=== PATIENT | female | born 1950 | race Two or more races ===

== ENCOUNTER 2024-05-04 14:32 | Inpatient (IN) | payer MEDICARE, SELFPAY ==
--- NOTE | ~2024-05-04 | CT_ITS ---
EXAMINATION: CT HEAD WITHOUT CONTRAST CLINICAL INFORMATION: Cognitive decline. COMPARISON: There are no prior studies available for comparison. TECHNIQUE: Multidetector CT imaging of the head was obtained without the use of intravenous contrast. Coronal and sagittal reformatted images were generated at the technologist workstation. This CT examination was performed using dose optimization techniques as appropriate, variously including the following: *Automated exposure control *Adjustment of mA and/or kV according to patient size (this includes techniques or standardized protocols for targeted exams where dose is matched to indication/reason for exam; i.e. extremities or head) *Use of iterative reconstruction technique DLP: 764 mGy-cm. FINDINGS: There is no evidence of acute intracranial hemorrhage or territorial infarction. No abnormal mass-effect or midline shift is seen. [place] to white matter differentiation is well preserved. No extra-axial fluid collections are identified. There is mild commensurate prominence of the ventricles and sulci. Brain parenchymal attenuation is unremarkable. There are no acute osseous findings. There is hyperostosis frontalis interna. The soft tissues and orbits are unremarkable. The mastoid air cells and the paranasal sinuses are well-aerated CT/CT head/brain wo IV con IMPRESSION: There are no acute bleeds or territorial infarcts. No masses are demonstrated. Brain parenchymal attenuation is unremarkable.
[2024-05-04 14:57] VITALS: BP 127/65; PULSE 87; RESP 18; TEMP 36.6; O2SAT 100; BMI 25.0
[2024-05-04 15:08] VITALS: BP 127/65; PULSE 87; RESP 18; TEMP 36.6; O2SAT 100
[2024-05-04 15:09] LABS: MANUAL DIFF FLAG NO
[2024-05-04 15:13] LABS: Basophils Percent Auto 0.6 % (0-2); Eosinophils Absolute Auto 0.2 X10*3/uL (0.0-0.4); Eosinophils Percent Auto 3.5 % (0-4); Hematocrit 40.3 % (37.0-47.0); Hemoglobin 13.4 g/dl (12.0-16.0); Imm Gran Abs Auto 0.01 X10*3/uL (0.00-0.03); Imm Gran Pct Auto 0.2 % (0.0-0.4); Lymphocytes Absolute Auto 1.6 X10*3/uL (1.2-4.9); Lymphocytes Percent Auto 32.9 % (20-40); Mean Corpuscular HGB Conc 33.3 g/dl (31.0-35.0); Mean Corpuscular Hemoglobin 29.8 pg (27.0-33.0); Mean Corpuscular Volume 89.8 fL (80.0-98.0); Mean Platelet Volume 9.1 fL (9.4-12.3); Monocytes Absolute Auto 0.5 X10*3/uL (0.1-1.2); Monocytes Percent Auto 11.1 % (2-11); Neutrophils Absolute Auto 2.5 x10*3/uL (2.0-8.3); Neutrophils Percent Auto 51.7 % (45-73); Platelet Count 215 X10*3/uL (160-400); Red Blood Count 4.49 X10*6/uL (4.20-5.50); Red Cell Distribution Width 13.4 % (11.0-16.0); White Blood Count 4.9 X10*3/uL (4.8-10.8)
--- NOTE | 2024-05-04 15:20 | PC.NURSE ---
PT was brought in by her son due to increasing manic behaviors at home. The son reports that she was Hospitalized at [facility] twice in the last couple of months. The son also endorses that the patient might have dementia but that there is no diagnosis at this time. The son states that she has not been at her base line since before going to [facility].
[2024-05-04 15:28] LABS: Acetaminophen LAB < 3 mcg/mL (<30); Alanine Aminotransferase 13 U/L (0-31); Albumin Level 4.2 g/dL (3.5-5.0); Alkaline Phosphatase 122 U/L (39-117); Anion Gap 12 (12-20); Aspartate Amino Transferase 18 U/L (5-31); Bilirubin Total 0.6 mg/dL (0.0-1.0); Blood Urea Nitrogen 19 mg/dL (9-16); Calcium 9.4 mg/dL (8.4-10.2); Carbon Dioxide 31 mmol/L (22-29); Chloride 102 mmol/L (96-108); Creatinine Clr Calc Pharmacy 37.5; Estimated Glomerular Filt Rate 50; Ethanol < 10 mg/dL; Glucose Random 104 mg/dL (60-115); Magnesium 2.3 mg/dL (1.6-2.6); Salicylate < 5.0 mg/dL (15-30); Sodium 141 mmol/L (135-145); Total Protein 7.5 g/dL (6.5-8.0)
--- NOTE | 2024-05-04 15:41 | MHC.CARE ---
Pt's son arrived with her and provided collateral information. Thad, son reported he is the HCP along with Pt's daughter Love. Thad reported Pt has been hospitalized for psychiatric concerns her entire life. He reported Pt has a diagnosis of Bipolar D/O and he is concerned of a dementia DX at this point in time. Pt was admitted to the Chasity unit at [facility] twice in the past 2 months; both times for about 2 weeks. Thad reported that she decompensated relatively quickly after each admission. Pt has been increasingly confused and exhibiting symptoms of selena for the past week. Pt has reportedly not been sleeping much the past week. Thad reported that there has been reports from other hospitals of Pt exhibiting hypersexual behaviors as well. Pt was living independently and high functioning until 3 months ago when Thad believes her daughter being diagnosed with breast cancer was increasingly traumatic for Pt. Pt currently resides with daughter, Love at this time.
[2024-05-04 17:16] LABS: TSH reflex Free T4 1.25 uIU/mL (0.32-4.0)
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
--- NOTE | 2024-05-04 19:13 | PC.NURSE ---
patient appears recumbent in room, naked under sheet in room about every fifteen minutes laughing loudly in her room, awaiting client to provide urine sample with which we can continue assessment for tx here. appears in no acute distress.
--- NOTE | 2024-05-04 21:17 | PC.NURSE ---
approached client about medications she declined
--- NOTE | 2024-05-05 02:10 | PC.NURSE ---
patient came out of room naked, redirected to get clothes on, seeming to want to interact with persons and not seeming tired. redirect she may sit in common area if quieter.
[2024-05-05] MEDS: LORazepam 2 MG/ML VIAL 1 MG IM (02:27)
[2024-05-05] MEDS: Haloperidol Lactate 5 MG/ML VIAL IM (02:27)
[2024-05-05] MEDS: diphenhydrAMINE HCL 50 MG/ML VIAL IM (02:27)
--- NOTE | 2024-05-05 07:28 | PC.NURSE ---
Assumed care of patient at 0645. No signs of distress, breathing is even and unlabored. Patient is observed resting quietly in their bed.
[2024-05-05] MEDS: lisinopriL 2.5 MG TABLET PO (10:06)
[2024-05-05] MEDS: QUEtiapine Fumarate 100 MG TABLET PO (10:07)
--- NOTE | 2024-05-05 12:36 | PC.NURSE ---
Healthcare proxy and durable power of claims attorney paperwork is in the patients chart.
[2024-05-05 13:30] LABS: Valproate < 12.5 mcg/mL (50.0-100.0)
[2024-05-05 13:33] VITALS: BP 106/76; PULSE 78; RESP 18; TEMP 36.6; O2SAT 95
[2024-05-05 13:37] LABS: Appearance Urine Clear; Color Urine Yellow; Glucose Urine UA Negative (Negative); Leukocyte Esterase Urine Moderate (2+) (Negative); Nitrite Urine Negative (Negative); UMIC TRIGGER UACC YES; Urine Blood Negative (Negative); Urine Ketones Negative (Negative); Urine Protein Negative (Neg-Trace)
[2024-05-05 13:46] LABS: Amphetamine Screen Urine Not Detected (Not Detect); Bacteria Urine None Seen (None Seen); Barbiturates, Urine Not Detected (Not Detect); Benzodiazepines Screen Urine Not Detected (Not Detect); Buprenorphine Scr Not Detected (Not Detect); Cannabinoid Screen Urine Not Detected (Not Detect); Cocaine Screen Urine Not Detected (Not Detect); Fentanyl, urine Not Detected (Not Detect); Hyaline Casts Urine 0-2 /LPF (0-2); Methadone Screen, Urine Not Detected (Not Detect); Opiate Screen Urine Not Detected (Not Detect); Oxycodone Screen Urine Not Detected (Not Detect); Phencyclidine Screen Urine Not Detected (Not Detect); RBC Urine 0-2 /HPF (0-2); Squamous Epithelial Cell Urine 0-2 /HPF (0-2); WBC Urine 0-5 /HPF (0-5)
[2024-05-05 16:26] VITALS: BP 105/58; PULSE 71; RESP 16; TEMP 36.6; O2SAT 97
--- NOTE | 2024-05-05 19:36 | PC.NURSE ---
patient appears to remain at rest presently respirations are even and unlabored patient appears in no distress
[2024-05-05] MEDS: QUEtiapine Fumarate 300 MG TABLET PO (20:54)
[2024-05-05] MEDS: Benztropine Mesylate 0.5 MG TABLET PO (20:54)
[2024-05-05] MEDS: lamoTRIgine 100 MG TABLET PO (20:54)
[2024-05-05] MEDS: Divalproex Sodium ER 250 MG TAB.ER.24H PO (20:54)
--- NOTE | 2024-05-05 22:54 | PC.NURSE ---
client reports sensation of restless legs, but unclear at this time.
[2024-05-06 06:27] VITALS: RESP 16
--- NOTE | 2024-05-06 07:10 | PC.NURSE ---
Assumed care of patient at 0645. No signs of distress, breathing is even and unlabored. Patient is observed resting quietly in their bed.
[2024-05-06] MEDS: QUEtiapine Fumarate 100 MG TABLET PO (10:05)
[2024-05-06 10:12] VITALS: BP 90/62; PULSE 100; RESP 20; TEMP 36.4; O2SAT 97
[2024-05-06 14:10] VITALS: BP 112/56; PULSE 80; RESP 16; TEMP 36.5; O2SAT 94
[2024-05-06] MEDS: lamoTRIgine 100 MG TABLET PO (20:49)
[2024-05-06] MEDS: Divalproex Sodium ER 250 MG TAB.ER.24H PO (20:49)
[2024-05-06] MEDS: QUEtiapine Fumarate 300 MG TABLET PO (20:49)
[2024-05-06] MEDS: Benztropine Mesylate 0.5 MG TABLET PO (20:49)
[2024-05-07 06:08] VITALS: BP 134/88; PULSE 105; TEMP 36.4; O2SAT 97
--- NOTE | 2024-05-07 07:50 | ECG_ITS ---
Test Reason : medication side effect, qt duration Blood Pressure : / mmHG Vent. Rate : 075 BPM Atrial Rate : 075 BPM P-R Int : 160 ms QRS Dur : 074 ms QT Int : 372 ms P-R-T Axes : 073 043 064 degrees QTc Int : 415 ms Normal sinus rhythm Normal ECG No previous ECGs available Referred By: Bernardo De Paz Electronically Signed By:Hansel Luna
[2024-05-07 09:23] VITALS: BP 105/55; PULSE 83; RESP 20; TEMP 36.7; O2SAT 93
[2024-05-07 09:27] VITALS: BP 105/55
[2024-05-07] MEDS: QUEtiapine Fumarate 100 MG TABLET PO (09:27)
[2024-05-07] MEDS: lisinopriL 2.5 MG TABLET PO (09:27)
--- NOTE | 2024-05-07 09:49 | PC.NURSE ---
Angela Arechiga MD reviewed pt.'s EKG. EKG put in pt.'s chart.
--- NOTE | 2024-05-07 12:15 | PC.NURSE ---
Angela Arechiga MD ordered dose of Colace for pt. because pt. complained of not going number 2 in two weeks. Pt. now refusing medication, stating that she might want it later.
--- NOTE | 2024-05-07 12:45 | MHC.CARE ---
RAD Team completed a Statewide [facility] Bed search. [facility], [facility], [facility], [facility] and [facility] were all full. / Referral was? faxed to [facility]. [facility] declined due to hyper sexualized behaviors.?Bed search will resume tomorrow if deemed necessary.
[2024-05-07] MEDS: QUEtiapine Fumarate 50 MG TABLET PO (19:02)
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
[2024-05-07 20:24] VITALS: RESP 14
[2024-05-07 22:02] VITALS: BP 120/64; PULSE 69; RESP 18; TEMP 36.5; O2SAT 96
[2024-05-07] MEDS: lamoTRIgine 100 MG TABLET PO (22:12)
[2024-05-07] MEDS: Divalproex Sodium ER 250 MG TAB.ER.24H PO (22:12)
[2024-05-07] MEDS: Benztropine Mesylate 0.5 MG TABLET PO (22:12)
[2024-05-07] MEDS: QUEtiapine Fumarate 300 MG TABLET PO (22:12)
[2024-05-07] MEDS: Docusate Sodium 100 MG CAPSULE PO (22:12)
--- NOTE | 2024-05-07 22:24 | PC.NURSE ---
Pt medicated per dec. Plan of care ongoing.
--- NOTE | 2024-05-07 23:11 | PC.NURSE ---
Pt ambulates with a steady gait to the restroom. Pt requested and given wash cloth. Plan of care ongoing.
--- NOTE | 2024-05-08 02:50 | PC.NURSE ---
Pt out pacing the unit. Plan of care ongoing.
[2024-05-08 07:38] VITALS: RESP 14
--- NOTE | 2024-05-08 07:58 | PC.NURSE ---
Assumed care of patient at 0645, patient appears to be sleeping, no apparent distress noted. Per night RN, patient has hypersexual behaviors, will speak in tangential sentences sometimes in Canadian. Continue plan of care for inpatient bedsearch
[2024-05-08] MEDS: QUEtiapine Fumarate 100 MG TABLET PO (08:20)
[2024-05-08] MEDS: Docusate Sodium 100 MG CAPSULE PO ×2 (08:20→20:39)
[2024-05-08] MEDS: lisinopriL 2.5 MG TABLET PO (08:20)
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
--- NOTE | 2024-05-08 16:19 | PC.ADMIT ---
Addendum entered by Nicolle De La Fuente RN 05/08/24 16:30: Pt. speaks both Faroese and Iranian. Original Note: Pt. arrived on unit at 14:39 via WC accompanied by this RN and security. Skin and contraband checks performed with no significant findings. Pt. pleasant and cooperative with admission process. Signed CV and ROIs. Oriented to unit and policies. She is A & O X 3-4--understands she is here because of her selena, I do things fast and cook in the middle of the night. Per crisis eval she had been displaying hypersexual behaviors in front of her son in law and grandchildren. She denies depression, anxiety, and AH. Pt. with elevated mood and becomes hyperverbal and expansive, quickly changing subject to her religiously themed visions. Pt. ambulates independently without assistive devices. She takes her meds whole. She wears glasses and dentures at baseline, but they are not with her. Message left for daughter Love to call unit for update.
[2024-05-08] MEDS: QUEtiapine Fumarate 50 MG TABLET PO ×2 (17:19→22:36)
[2024-05-08 20:00] VITALS: BP 101/57; PULSE 89; RESP 18; TEMP 37.1; O2SAT 96
[2024-05-08] MEDS: Benztropine Mesylate 0.5 MG TABLET PO (20:39)
[2024-05-08] MEDS: Divalproex Sodium ER 250 MG TAB.ER.24H PO (20:39)
[2024-05-08] MEDS: lamoTRIgine 100 MG TABLET PO (20:39)
[2024-05-08] MEDS: QUEtiapine Fumarate 300 MG TABLET PO (20:39)
[2024-05-08] MEDS: traZODone HCL 50 MG TABLET PO (22:36)
[2024-05-08] MEDS: hydrOXYzine HCL 25 MG TABLET PO (22:36)
[2024-05-09 08:00] VITALS: BP 127/57; PULSE 88; RESP 18; TEMP 36.4; O2SAT 99
[2024-05-09 08:51] LABS: Alanine Aminotransferase 12 U/L (0-31); Albumin Level 4.1 g/dL (3.5-5.0); Alkaline Phosphatase 100 U/L (39-117); Anion Gap 11 (12-20); Aspartate Amino Transferase 18 U/L (5-31); Bilirubin Total 0.9 mg/dL (0.0-1.0); Blood Urea Nitrogen 27 mg/dL (9-16); Calcium 9.3 mg/dL (8.4-10.2); Carbon Dioxide 30 mmol/L (22-29); Chloride 101 mmol/L (96-108); Cholesterol 157 mg/dL (<200); Creatinine Clr Calc Pharmacy 32.6; Estimated Glomerular Filt Rate 43; Glucose Fasting 112 mg/dL (60-99); HDL Cholesterol 45 mg/dL (>40); LDL Cholesterol Calculated 100 mg/dL (<100); Potassium 3.8 mmol/L (3.3-5.1); Sodium 138 mmol/L (135-145); Total Protein 7.3 g/dL (6.5-8.0); Triglycerides 61 mg/dL (<150)
[2024-05-09 08:57] VITALS: BP 127/57
[2024-05-09] MEDS: QUEtiapine Fumarate 100 MG TABLET PO (08:57)
[2024-05-09] MEDS: lisinopriL 2.5 MG TABLET PO (08:57)
[2024-05-09] MEDS: Docusate Sodium 100 MG CAPSULE PO ×2 (08:58→19:54)
--- NOTE | 2024-05-09 13:02 | P.PNPSI_ITS ---
Subjective Subjective Date of Service: 05/09/24 Reason For Visit: Psychosis Subjective Notes: Conditional Voluntary Healthcare Proxy: Yes Interim History: The nursing staff reported the patient had been manic at times but very easily redirectable. She has been pleasant and cooperative. Today on interview the patient denies new symptoms, I called her daughter and decided to cross taper her completely to Depakote and Seroquel since historically healthcare very well. Mental Status Exam Mental Status Exam Patient Appearance: Appropriate Patient Orientation: Person and Situation Level of Consciousness: Awake Patient Behavior: Guarded and Passive Mood Description: Withdrawn Affect Description: Calm Patient Cognition Impaired: Yes Ability to Follow Directions: Good Speech Pattern: Clear Hallucinations: None Delusions: Ideas of Reference Thought Process: Distracted and Slowed Thinking Thought Content: positive for [place] and positive for Poverty of Content Judgement: Fair Diagnostics Vital Signs (24Hr): Vital Signs - 24 hr 05/08/24 20:00 05/09/24 08:00 05/09/24 08:57 Temperature 98.8 F 97.5 F Pulse Rate 89 88 Respiratory Rate 18 18 Blood Pressure 101/57 L 127/57 L 127/57 L Pulse Oximetry 96 99 Oxygen Delivery Method Room Air Room Air BMI result Body Mass Index 25.0 Labs 05/04/24 15:03 05/09/24 08:10 Labs: Laboratory Results - last 48 hr 05/09/24 08:10 Hold Purple Top SEE NOTE Sodium 138 Potassium 3.8 Chloride 101 Carbon Dioxide 30 H Anion Gap 11 L BUN 27 H Creatinine 1.24 Estim Creat Clear Calc 32.6 Estimated GFR 43 Fasting Glucose 112 H Calcium 9.3 Total Bilirubin 0.9 AST 18 ALT 12 Alkaline Phosphatase 100 Total Protein 7.3 Albumin 4.1 Triglycerides 61 Cholesterol 157 LDL Cholesterol, Calc 100 H HDL Cholesterol 45 Medications Medications Current Medications Acetaminophen (Acetaminophen 325 Mg Tablet) 650 mg PO Q6H PRN PRN Reason: Headache/Pain Mild Scale (1-3) Al Hydroxide/Mg Hydroxide (Magnesium Hydrox/Alum Hydrox 30 Ml Oral.Susp) 30 ml PO Q6H PRN PRN Reason: Heartburn/Nausea Benztropine Mesylate (Benztropine Mesylate 0.5 Mg Tablet) 0.5 mg PO BEDTIME [facility] Last Admin: 05/08/24 20:39 Dose: 0.5 mg Divalproex Sodium (Divalproex Sodium Er 250 Mg Tab.Er.24h) 250 mg PO BEDTIME [facility] Last Admin: 05/08/24 20:39 Dose: 250 mg Docusate Sodium (Docusate Sodium 100 Mg Capsule) 100 mg PO BID [facility] Last Admin: 05/09/24 08:58 Dose: 100 mg Hydroxyzine HCl (Hydroxyzine Hcl 25 Mg Tablet) 25 mg PO Q6H PRN PRN Reason: Anxiety Last Admin: 05/08/24 22:36 Dose: 25 mg Lamotrigine (Lamotrigine 100 Mg Tablet) 100 mg PO BEDTIME [facility] Last Admin: 05/08/24 20:39 Dose: 100 mg Lisinopril (Lisinopril 2.5 Mg Tablet) 2.5 mg PO DAILY [facility]; Protocol Last Admin: 05/09/24 08:57 Dose: 2.5 mg Magnesium Hydroxide (Milk Of Magnesia 30 Ml Oral.Susp) 30 ml PO DAILY PRN PRN Reason: Constipation Quetiapine Fumarate (Quetiapine Fumarate 50 Mg Tablet) 50 mg PO BID PRN PRN Reason: Agitation Last Admin: 05/08/24 22:36 Dose: 50 mg Quetiapine Fumarate (Quetiapine Fumarate 100 Mg Tablet) 100 mg PO DAILY [facility] Last Admin: 05/09/24 08:57 Dose: 100 mg Quetiapine Fumarate (Quetiapine Fumarate 300 Mg Tablet) 300 mg PO BEDTIME [facility] Last Admin: 05/08/24 20:39 Dose: 300 mg Trazodone HCl (Trazodone Hcl 50 Mg Tablet) 50 mg PO BEDTIME MRX1 PRN PRN Reason: Insomnia Last Admin: 05/08/24 22:36 Dose: 50 mg Allergies Allergies Allergy/AdvReac Type Severity Reaction Status Date / Time No Known Allergies Allergy Verified 05/04/24 15:04 Assessment & Plan Assessment & Plan (1) Dementia: Status: Acute Code(s): F03.90 - Unspecified dementia, unspecified severity, without behavioral disturbance, psychotic disturbance, mood disturbance, and anxiety (2) Bipolar 1 disorder: Status: Acute Code(s): F31.9 - Bipolar disorder, unspecified Plan The patient is an elderly Frisian female, bilingual, with a past history of bipolar disorder and a past history of catatonia with several admissions into the hospital, recently admitted twice in the last 60 days for a presentation of selena. Currently now she has manic symptoms. Plan 1. Continue Seroquel 100 p.o. q.a.m. and 300 mg p.o. q.h.s., also with PRNs Seroquel 50 as needed. 2. Increase Depakote up to 250 mg p.o. b.i.d.. 3. Lowered to Lamictal up to 50 mg p.o. daily. 4. Continue with medical workout. 5. 15 minute checks. Patient educated on: diagnosis Reason for continued inpatient stay Substantial Risk for: inability to function, rapid decompensation and med/psych decompensation Time Spent With Patient Time: Total time managing care of this patient today _20___ minutes.
[2024-05-09] MEDS: QUEtiapine Fumarate 300 MG TABLET PO (19:53)
[2024-05-09] MEDS: Benztropine Mesylate 0.5 MG TABLET PO (19:54)
[2024-05-09] MEDS: Divalproex Sodium ER 250 MG TAB.ER.24H PO (19:54)
[2024-05-09] MEDS: lamoTRIgine 25 MG TABLET 50 MG PO (19:54)
[2024-05-09 20:00] VITALS: BP 129/65; PULSE 77; RESP 18; TEMP 36.4; O2SAT 98
[2024-05-10] MEDS: QUEtiapine Fumarate 50 MG TABLET PO (05:36)
[2024-05-10] MEDS: hydrOXYzine HCL 25 MG TABLET PO ×2 (05:36→17:39)
[2024-05-10 07:00] VITALS: BMI 24.5
[2024-05-10 08:00] VITALS: BP 119/72; PULSE 64; RESP 18; TEMP 36.1; O2SAT 96
[2024-05-10 08:53] VITALS: BP 119/72
[2024-05-10] MEDS: QUEtiapine Fumarate 100 MG TABLET PO (08:53)
[2024-05-10] MEDS: Divalproex Sodium ER 250 MG TAB.ER.24H PO ×3 (08:53→21:13)
[2024-05-10] MEDS: Docusate Sodium 100 MG CAPSULE PO ×2 (08:53→21:12)
[2024-05-10] MEDS: lisinopriL 2.5 MG TABLET PO (08:53)
--- NOTE | 2024-05-10 13:07 | HO.PSYCHPN ---
Subjective Subjective Date of Service: 05/10/24 Reason For Visit: Psychosis Subjective Notes: Conditional Voluntary Healthcare Proxy: Yes Interim History: The nursing staff reported the patient had being manic, intrusive at times with peers. Her appetite is normal. On interview the patient looks confused but intrusive at times. As we discussed before, we are going to taper her off Lamictal and increase Depakote as a mood stabilizer. Mental Status Exam Mental Status Exam Patient Appearance: Appropriate Patient Orientation: Person Level of Consciousness: Awake Patient Behavior: Guarded and Passive Mood Description: Withdrawn Affect Description: Constricted Patient Cognition Impaired: Yes Ability to Follow Directions: Good Speech Pattern: Clear Hallucinations: None Delusions: Paranoid Ideation and Ideas of Reference Thought Process: Illogical, Distracted and Evasive Thought Content: positive for [place] and positive for Poverty of Content Judgement: Poor Diagnostics Vital Signs (24Hr): Vital Signs - 24 hr 05/09/24 20:00 05/10/24 08:00 05/10/24 08:53 Temperature 97.6 F 96.9 F Pulse Rate 77 64 Respiratory Rate 18 18 Blood Pressure 129/65 119/72 119/72 Pulse Oximetry 98 96 Oxygen Delivery Method Room Air Room Air BMI result Body Mass Index 24.5 Labs 05/04/24 15:03 05/09/24 08:10 Labs: Laboratory Results - last 48 hr 05/09/24 08:10 Hold Purple Top SEE NOTE Sodium 138 Potassium 3.8 Chloride 101 Carbon Dioxide 30 H Anion Gap 11 L BUN 27 H Creatinine 1.24 Estim Creat Clear Calc 32.6 Estimated GFR 43 Fasting Glucose 112 H Calcium 9.3 Total Bilirubin 0.9 AST 18 ALT 12 Alkaline Phosphatase 100 Total Protein 7.3 Albumin 4.1 Triglycerides 61 Cholesterol 157 LDL Cholesterol, Calc 100 H HDL Cholesterol 45 Medications Medications Current Medications Acetaminophen (Acetaminophen 325 Mg Tablet) 650 mg PO Q6H PRN PRN Reason: Headache/Pain Mild Scale (1-3) Al Hydroxide/Mg Hydroxide (Magnesium Hydrox/Alum Hydrox 30 Ml Oral.Susp) 30 ml PO Q6H PRN PRN Reason: Heartburn/Nausea Benztropine Mesylate (Benztropine Mesylate 0.5 Mg Tablet) 0.5 mg PO BEDTIME [facility] Last Admin: 05/09/24 19:54 Dose: 0.5 mg Divalproex Sodium (Divalproex Sodium Er 250 Mg Tab.Er.24h) 250 mg PO BID [facility] Last Admin: 05/10/24 08:53 Dose: 250 mg Docusate Sodium (Docusate Sodium 100 Mg Capsule) 100 mg PO BID [facility] Last Admin: 05/10/24 08:53 Dose: 100 mg Hydroxyzine HCl (Hydroxyzine Hcl 25 Mg Tablet) 25 mg PO Q6H PRN PRN Reason: Anxiety Last Admin: 05/10/24 05:36 Dose: 25 mg Lamotrigine (Lamotrigine 25 Mg Tablet) 50 mg PO BEDTIME [facility] Last Admin: 05/09/24 19:54 Dose: 50 mg Lisinopril (Lisinopril 2.5 Mg Tablet) 2.5 mg PO DAILY [facility]; Protocol Last Admin: 05/10/24 08:53 Dose: 2.5 mg Magnesium Hydroxide (Milk Of Magnesia 30 Ml Oral.Susp) 30 ml PO DAILY PRN PRN Reason: Constipation Quetiapine Fumarate (Quetiapine Fumarate 50 Mg Tablet) 50 mg PO BID PRN PRN Reason: Agitation Last Admin: 05/10/24 05:36 Dose: 50 mg Quetiapine Fumarate (Quetiapine Fumarate 100 Mg Tablet) 100 mg PO DAILY [facility] Last Admin: 05/10/24 08:53 Dose: 100 mg Quetiapine Fumarate (Quetiapine Fumarate 300 Mg Tablet) 300 mg PO BEDTIME [facility] Last Admin: 05/09/24 19:53 Dose: 300 mg Trazodone HCl (Trazodone Hcl 50 Mg Tablet) 50 mg PO BEDTIME MRX1 PRN PRN Reason: Insomnia Last Admin: 05/08/24 22:36 Dose: 50 mg Allergies Allergies Allergy/AdvReac Type Severity Reaction Status Date / Time No Known Allergies Allergy Verified 05/04/24 15:04 Assessment & Plan Assessment & Plan (1) Dementia: Status: Acute Code(s): F03.90 - Unspecified dementia, unspecified severity, without behavioral disturbance, psychotic disturbance, mood disturbance, and anxiety (2) Bipolar 1 disorder: Status: Acute Code(s): F31.9 - Bipolar disorder, unspecified Plan The patient is an elderly Lithuanian female, bilingual, with a past history of bipolar disorder and a past history of catatonia with several admissions into the hospital, recently admitted twice in the last 60 days for a presentation of selena. Currently now she has manic symptoms. Plan 1. Continue Seroquel 100 p.o. q.a.m. and 300 mg p.o. q.h.s., also with PRNs Seroquel 50 as needed. 2. Increase Depakote up to 250 mg p.o. b.i.d.. On May 10 we increased up to Depakote 200 p.o. t.i.d.. 3. Lowered to Lamictal up to 50 mg p.o. daily. On May 10 we lowered Lamictal to 25 p.o. daily. 4. Continue with medical workout. 5. 15 minute checks. Reason for continued inpatient stay Substantial Risk for: inability to function, rapid decompensation and med/psych decompensation Time Spent With Patient Time: Total time managing care of this patient today __20__ minutes.
[2024-05-10 20:00] VITALS: BP 119/69; PULSE 86; RESP 18; TEMP 36.7; O2SAT 98
[2024-05-10] MEDS: QUEtiapine Fumarate 300 MG TABLET PO (21:12)
[2024-05-10] MEDS: lamoTRIgine 25 MG TABLET PO (21:13)
[2024-05-10] MEDS: Benztropine Mesylate 0.5 MG TABLET PO (21:14)
[2024-05-10] MEDS: traZODone HCL 50 MG TABLET PO (21:14)
[2024-05-11 08:25] VITALS: BP 106/56; PULSE 88; RESP 18; TEMP 36.4; O2SAT 94
[2024-05-11] MEDS: lisinopriL 2.5 MG TABLET PO (08:26)
[2024-05-11] MEDS: Divalproex Sodium ER 250 MG TAB.ER.24H PO (08:26)
[2024-05-11] MEDS: Docusate Sodium 100 MG CAPSULE PO ×2 (08:26→21:14)
[2024-05-11] MEDS: QUEtiapine Fumarate 100 MG TABLET PO (08:26)
[2024-05-11] MEDS: Milk of Magnesia 30 ML ORAL.SUSP PO (08:29)
--- NOTE | 2024-05-11 13:36 | HO.PSYCHPN ---
Subjective Subjective Date of Service: 05/11/24 Reason For Visit: Psychosis Subjective Notes: Conditional Voluntary Healthcare Proxy: Yes Interim History: The nursing staff reported the patient had been intrusive, exit seeking at times wandering the unit very talkative. She keeps asking if she can speak B[place]. On interview the patient reports that she is doing very well. We will continue with the cross taper of Lamictal and increase Depakote. Mental Status Exam Mental Status Exam Patient Appearance: Appropriate Patient Orientation: Person and Situation Level of Consciousness: Awake and Appropriate Patient Behavior: Appropriate and Talkative Mood Description: Calm and Cheerful Affect Description: Labile Ability to Follow Directions: Good Speech Pattern: Rapid Hallucinations: None Delusions: Grandiose and Ideas of Reference Thought Process: Racing and Distracted Thought Content: positive for [place] and positive for Poverty of Content Judgement: Poor Diagnostics Vital Signs (24Hr): Vital Signs - 24 hr 05/10/24 20:00 05/11/24 08:25 Temperature 98.0 F 97.5 F Pulse Rate 86 88 Respiratory Rate 18 18 Blood Pressure 119/69 106/56 L Pulse Oximetry 98 94 Oxygen Delivery Method Room Air Room Air BMI result Body Mass Index 24.5 Labs 05/04/24 15:03 05/09/24 08:10 Medications Medications Current Medications Acetaminophen (Acetaminophen 325 Mg Tablet) 650 mg PO Q6H PRN PRN Reason: Headache/Pain Mild Scale (1-3) Al Hydroxide/Mg Hydroxide (Magnesium Hydrox/Alum Hydrox 30 Ml Oral.Susp) 30 ml PO Q6H PRN PRN Reason: Heartburn/Nausea Benztropine Mesylate (Benztropine Mesylate 0.5 Mg Tablet) 0.5 mg PO BEDTIME [facility] Last Admin: 05/10/24 21:14 Dose: 0.5 mg Divalproex Sodium (Divalproex Sodium Er 500 Mg Tab.Er.24h) 500 mg PO BID [facility] Last Admin: 05/11/24 09:14 Dose: Not Given Docusate Sodium (Docusate Sodium 100 Mg Capsule) 100 mg PO BID [facility] Last Admin: 05/11/24 08:26 Dose: 100 mg Hydroxyzine HCl (Hydroxyzine Hcl 25 Mg Tablet) 25 mg PO Q6H PRN PRN Reason: Anxiety Last Admin: 05/10/24 17:39 Dose: 25 mg Lisinopril (Lisinopril 2.5 Mg Tablet) 2.5 mg PO DAILY [facility]; Protocol Last Admin: 05/11/24 08:26 Dose: 2.5 mg Magnesium Hydroxide (Milk Of Magnesia 30 Ml Oral.Susp) 30 ml PO DAILY PRN PRN Reason: Constipation Last Admin: 05/11/24 08:29 Dose: 30 ml Quetiapine Fumarate (Quetiapine Fumarate 50 Mg Tablet) 50 mg PO BID PRN PRN Reason: Agitation Last Admin: 05/10/24 05:36 Dose: 50 mg Quetiapine Fumarate (Quetiapine Fumarate 100 Mg Tablet) 100 mg PO DAILY [facility] Last Admin: 05/11/24 08:26 Dose: 100 mg Quetiapine Fumarate (Quetiapine Fumarate 300 Mg Tablet) 300 mg PO BEDTIME [facility] Last Admin: 05/10/24 21:12 Dose: 300 mg Trazodone HCl (Trazodone Hcl 50 Mg Tablet) 50 mg PO BEDTIME MRX1 PRN PRN Reason: Insomnia Last Admin: 05/10/24 21:14 Dose: 50 mg Allergies Allergies Allergy/AdvReac Type Severity Reaction Status Date / Time No Known Allergies Allergy Verified 05/04/24 15:04 Assessment & Plan Assessment & Plan (1) Dementia: Status: Acute Code(s): F03.90 - Unspecified dementia, unspecified severity, without behavioral disturbance, psychotic disturbance, mood disturbance, and anxiety (2) Bipolar 1 disorder: Status: Acute Code(s): F31.9 - Bipolar disorder, unspecified Plan The patient is an elderly Bermudian female, bilingual, with a past history of bipolar disorder and a past history of catatonia with several admissions into the hospital, recently admitted twice in the last 60 days for a presentation of selena. Currently now she has manic symptoms. Plan 1. Continue Seroquel 100 p.o. q.a.m. and 300 mg p.o. q.h.s., also with PRNs Seroquel 50 as needed. 2. Increase Depakote up to 250 mg p.o. b.i.d.. On May 10 we increased up to Depakote 200 p.o. t.i.d.. On May 11 we increased Depakote up to 500 mg p.o. b.i.d.. We will have a Depakote level next week. 3. Lowered to Lamictal up to 50 mg p.o. daily. On May 10 we lowered Lamictal to 25 p.o. daily. On May 11 we discontinue Lamictal 4. Continue with medical workout. 5. 15 minute checks. Reason for continued inpatient stay Substantial Risk for: inability to function, rapid decompensation and med/psych decompensation Time Spent With Patient Time: Total time managing care of this patient today __20__ minutes.
[2024-05-11 20:00] VITALS: BP 115/64; PULSE 80; RESP 16; TEMP 36.4; O2SAT 99
[2024-05-11] MEDS: QUEtiapine Fumarate 300 MG TABLET PO (21:13)
[2024-05-11] MEDS: Divalproex Sodium ER 500 MG TAB.ER.24H PO (21:13)
[2024-05-11] MEDS: Benztropine Mesylate 0.5 MG TABLET PO (21:14)
[2024-05-11] MEDS: traZODone HCL 50 MG TABLET PO (21:14)
[2024-05-12 08:00] VITALS: BP 109/61; PULSE 86; RESP 18; TEMP 36.4; O2SAT 96
[2024-05-12 08:11] VITALS: BP 109/61
[2024-05-12] MEDS: QUEtiapine Fumarate 100 MG TABLET PO (08:11)
[2024-05-12] MEDS: lisinopriL 2.5 MG TABLET PO (08:11)
[2024-05-12] MEDS: Divalproex Sodium ER 500 MG TAB.ER.24H PO ×2 (08:11→21:32)
[2024-05-12] MEDS: Docusate Sodium 100 MG CAPSULE PO ×2 (08:11→21:33)
[2024-05-12 20:00] VITALS: BP 121/63; PULSE 75; RESP 16; TEMP 37.1; O2SAT 95
[2024-05-12] MEDS: QUEtiapine Fumarate 300 MG TABLET PO (21:32)
[2024-05-12] MEDS: traZODone HCL 50 MG TABLET PO (21:32)
[2024-05-12] MEDS: Benztropine Mesylate 0.5 MG TABLET PO (21:33)
--- NOTE | 2024-05-12 22:59 | P.PNPSI_ITS ---
Subjective Subjective Date of Service: 05/12/24 Reason For Visit: Psychosis Subjective Notes: K[facility] Order Healthcare Proxy: Yes Interim History: The nursing staff reported the patient had been intrusive, exit seeking at times wandering the unit very talkative. Patient is psychotic on Depakote. Mental Status Exam Mental Status Exam Patient Appearance: Appropriate Patient Orientation: Person and Situation Level of Consciousness: Awake and Appropriate Patient Behavior: Appropriate and Talkative Mood Description: Calm and Cheerful Affect Description: Labile Ability to Follow Directions: Good Speech Pattern: Rapid Hallucinations: None Delusions: Grandiose and Ideas of Reference Thought Process: Racing and Distracted Thought Content: positive for [place] and positive for Poverty of Content Judgement: Poor Diagnostics Vital Signs (24Hr): Vital Signs - 24 hr 05/12/24 08:00 05/12/24 08:11 05/12/24 20:00 Temperature 97.5 F 98.7 F Pulse Rate 86 75 Respiratory Rate 18 16 Blood Pressure 109/61 109/61 121/63 Pulse Oximetry 96 95 Oxygen Delivery Method Room Air Room Air BMI result Body Mass Index 24.5 Labs 05/04/24 15:03 05/09/24 08:10 Medications Medications Current Medications Acetaminophen (Acetaminophen 325 Mg Tablet) 650 mg PO Q6H PRN PRN Reason: Headache/Pain Mild Scale (1-3) Al Hydroxide/Mg Hydroxide (Magnesium Hydrox/Alum Hydrox 30 Ml Oral.Susp) 30 ml PO Q6H PRN PRN Reason: Heartburn/Nausea Benztropine Mesylate (Benztropine Mesylate 0.5 Mg Tablet) 0.5 mg PO BEDTIME [facility] Last Admin: 05/12/24 21:33 Dose: 0.5 mg Divalproex Sodium (Divalproex Sodium Er 500 Mg Tab.Er.24h) 500 mg PO BID [facility] Last Admin: 05/12/24 21:32 Dose: 500 mg Docusate Sodium (Docusate Sodium 100 Mg Capsule) 100 mg PO BID [facility] Last Admin: 05/12/24 21:33 Dose: 100 mg Hydroxyzine HCl (Hydroxyzine Hcl 25 Mg Tablet) 25 mg PO Q6H PRN PRN Reason: Anxiety Last Admin: 05/10/24 17:39 Dose: 25 mg Lisinopril (Lisinopril 2.5 Mg Tablet) 2.5 mg PO DAILY [facility]; Protocol Last Admin: 05/12/24 08:11 Dose: 2.5 mg Magnesium Hydroxide (Milk Of Magnesia 30 Ml Oral.Susp) 30 ml PO DAILY PRN PRN Reason: Constipation Last Admin: 05/11/24 08:29 Dose: 30 ml Quetiapine Fumarate (Quetiapine Fumarate 50 Mg Tablet) 50 mg PO BID PRN PRN Reason: Agitation Last Admin: 05/10/24 05:36 Dose: 50 mg Quetiapine Fumarate (Quetiapine Fumarate 100 Mg Tablet) 100 mg PO DAILY [facility] Last Admin: 05/12/24 08:11 Dose: 100 mg Quetiapine Fumarate (Quetiapine Fumarate 300 Mg Tablet) 300 mg PO BEDTIME [facility] Last Admin: 05/12/24 21:32 Dose: 300 mg Trazodone HCl (Trazodone Hcl 50 Mg Tablet) 50 mg PO BEDTIME MRX1 PRN PRN Reason: Insomnia Last Admin: 05/12/24 21:32 Dose: 50 mg Allergies Allergies Allergy/AdvReac Type Severity Reaction Status Date / Time No Known Allergies Allergy Verified 05/04/24 15:04 Assessment & Plan Assessment & Plan (1) Dementia: Status: Acute Code(s): F03.90 - Unspecified dementia, unspecified severity, without behavioral disturbance, psychotic disturbance, mood disturbance, and anxiety (2) Bipolar 1 disorder: Status: Acute Code(s): F31.9 - Bipolar disorder, unspecified Plan The patient is an elderly Icelandic female, bilingual, with a past history of bipolar disorder and a past history of catatonia with several admissions into the hospital, recently admitted twice in the last 60 days for a presentation of selena. Currently now she has manic symptoms. Plan 1. Continue Seroquel 100 p.o. q.a.m. and 300 mg p.o. q.h.s., also with PRNs Seroquel 50 as needed. 2. Increase Depakote up to 250 mg p.o. b.i.d.. On May 10 we increased up to Depakote 200 p.o. t.i.d.. On May 11 we increased Depakote up to 500 mg p.o. b.i.d.. We will have a Depakote level next week. 3. Lowered to Lamictal up to 50 mg p.o. daily. On Twila 11 we lowered Lamictal to 25 p.o. daily. On May 11 we discontinue Lamictal 4. Continue with medical workout. 5. 15 minute checks. 05/12/2024 Continue plan of care treatment for mood disorder with psychosis Informed Consent: does not understand Reason for continued inpatient stay Substantial Risk for: harm to self, inability to function and med/psych decompensation Time Spent With Patient Time: Total time managing care of this patient today ____ minutes.
[2024-05-13 07:34] VITALS: BP 144/82; PULSE 72; RESP 18; TEMP 36.2; O2SAT 97
[2024-05-13] MEDS: Docusate Sodium 100 MG CAPSULE PO (08:00)
[2024-05-13] MEDS: QUEtiapine Fumarate 100 MG TABLET PO (08:00)
[2024-05-13] MEDS: Divalproex Sodium ER 500 MG TAB.ER.24H PO ×2 (08:00→20:56)
[2024-05-13] MEDS: lisinopriL 2.5 MG TABLET PO (08:01)
--- NOTE | 2024-05-13 13:01 | HO.PSYCHPN ---
Subjective Subjective Date of Service: 05/13/24 Reason For Visit: Psychosis Interim History: Patient has a history of bipolar disorder now on Seroquel and Depakote. Seems to be more stable complains of constipation Mental Status Exam Mental Status Exam Patient Appearance: Appropriate Patient Orientation: Person and Situation Level of Consciousness: Awake and Appropriate Patient Behavior: Appropriate and Talkative Mood Description: Calm and Cheerful Affect Description: Labile Ability to Follow Directions: Good Speech Pattern: Rapid Hallucinations: None Delusions: Grandiose and Ideas of Reference Thought Process: Racing and Distracted Thought Content: positive for Circumstantial and positive for Poverty of Content Judgement: Poor Diagnostics Vital Signs (24Hr): Vital Signs - 24 hr 05/12/24 20:00 05/13/24 07:34 Temperature 98.7 F 97.2 F Pulse Rate 75 72 Respiratory Rate 16 18 Blood Pressure 121/63 144/82 H Pulse Oximetry 95 97 Oxygen Delivery Method Room Air Room Air BMI result Body Mass Index 24.5 Labs 05/04/24 15:03 05/09/24 08:10 Medications Medications Current Medications Acetaminophen (Acetaminophen 325 Mg Tablet) 650 mg PO Q6H PRN PRN Reason: Headache/Pain Mild Scale (1-3) Al Hydroxide/Mg Hydroxide (Magnesium Hydrox/Alum Hydrox 30 Ml Oral.Susp) 30 ml PO Q6H PRN PRN Reason: Heartburn/Nausea Benztropine Mesylate (Benztropine Mesylate 0.5 Mg Tablet) 0.5 mg PO BEDTIME [facility] Last Admin: 05/12/24 21:33 Dose: 0.5 mg Divalproex Sodium (Divalproex Sodium Er 500 Mg Tab.Er.24h) 500 mg PO BID [facility] Last Admin: 05/13/24 08:00 Dose: 500 mg Docusate Sodium (Docusate Sodium 100 Mg Capsule) 100 mg PO BID [facility] Last Admin: 05/13/24 08:00 Dose: 100 mg Hydroxyzine HCl (Hydroxyzine Hcl 25 Mg Tablet) 25 mg PO Q6H PRN PRN Reason: Anxiety Last Admin: 05/10/24 17:39 Dose: 25 mg Lisinopril (Lisinopril 2.5 Mg Tablet) 2.5 mg PO DAILY [facility]; Protocol Last Admin: 05/13/24 08:01 Dose: 2.5 mg Magnesium Hydroxide (Milk Of Magnesia 30 Ml Oral.Susp) 30 ml PO DAILY PRN PRN Reason: Constipation Last Admin: 05/11/24 08:29 Dose: 30 ml Quetiapine Fumarate (Quetiapine Fumarate 50 Mg Tablet) 50 mg PO BID PRN PRN Reason: Agitation Last Admin: 05/10/24 05:36 Dose: 50 mg Quetiapine Fumarate (Quetiapine Fumarate 100 Mg Tablet) 100 mg PO DAILY [facility] Last Admin: 05/13/24 08:00 Dose: 100 mg Quetiapine Fumarate (Quetiapine Fumarate 300 Mg Tablet) 300 mg PO BEDTIME [facility] Last Admin: 05/12/24 21:32 Dose: 300 mg Trazodone HCl (Trazodone Hcl 50 Mg Tablet) 50 mg PO BEDTIME MRX1 PRN PRN Reason: Insomnia Last Admin: 05/12/24 21:32 Dose: 50 mg Allergies Allergies Allergy/AdvReac Type Severity Reaction Status Date / Time No Known Allergies Allergy Verified 05/04/24 15:04 Assessment & Plan Assessment & Plan (1) Bipolar 1 disorder: Status: Acute Code(s): F31.9 - Bipolar disorder, unspecified (2) Dementia: Status: Acute Code(s): F03.90 - Unspecified dementia, unspecified severity, without behavioral disturbance, psychotic disturbance, mood disturbance, and anxiety Plan The patient is an elderly Romansh female, bilingual, with a past history of bipolar disorder and a past history of catatonia with several admissions into the hospital, recently admitted twice in the last 60 days for a presentation of selena. Currently now she has manic symptoms. Plan 1. Continue Seroquel 100 p.o. q.a.m. and 300 mg p.o. q.h.s., also with PRNs Seroquel 50 as needed. 2. Increase Depakote up to 250 mg p.o. b.i.d.. On May 10 we increased up to Depakote 200 p.o. t.i.d.. On May 11 we increased Depakote up to 500 mg p.o. b.i.d.. We will have a Depakote level next week. 3. Lowered to Lamictal up to 50 mg p.o. daily. On May 10 we lowered Lamictal to 25 p.o. daily. On May 11 we discontinue Lamictal 4. Continue with medical workout. 5. 15 minute checks. 05/12/2024 Continue plan of care treatment for mood disorder with psychosis 05/13/2024 Continue Depakote and Seroquel check Depakote level Dulcolax for constipation enema if needed Colace 200 b.i.d. Reason for continued inpatient stay Substantial Risk for: inability to function, rapid decompensation and med/psych decompensation Time Spent With Patient Time: Total time managing care of this patient today ____ minutes.
--- NOTE | 2024-05-13 14:11 | PC.NURSE ---
Ofelia reported no bowel movement x 3 weeks however unsure if this information is credible. Abdomen soft and non-tender with bowel sounds present in all four quadrants. Asked Dr. Small to order a suppository as she was agreeable to this and she declined milk of magnesia.
[2024-05-13] MEDS: Sodium Phosphate,Mono-Dibasic 133 ML ENEMA PR (18:19)
[2024-05-13 19:12] VITALS: BP 104/67; PULSE 83; TEMP 36.6; O2SAT 99
[2024-05-13] MEDS: QUEtiapine Fumarate 300 MG TABLET PO (20:56)
[2024-05-13] MEDS: Benztropine Mesylate 0.5 MG TABLET PO (20:56)
[2024-05-13] MEDS: Docusate Sodium 100 MG CAPSULE 200 MG PO (20:56)
[2024-05-14 08:05] VITALS: BP 132/67; PULSE 76; RESP 18; TEMP 36.3; O2SAT 97
[2024-05-14] MEDS: Docusate Sodium 100 MG CAPSULE 200 MG PO ×2 (09:11→20:12)
[2024-05-14] MEDS: Divalproex Sodium ER 500 MG TAB.ER.24H PO ×2 (09:11→20:12)
[2024-05-14 09:12] VITALS: BP 103/58
[2024-05-14] MEDS: QUEtiapine Fumarate 100 MG TABLET PO (09:12)
[2024-05-14] MEDS: lisinopriL 2.5 MG TABLET PO (09:12)
--- NOTE | 2024-05-14 17:46 | P.PNPSI_ITS ---
Subjective Subjective Date of Service: 05/14/24 Reason For Visit: Psychosis Interim History: no questions or concerns. per staff alert and oriented. flat, quiet. isolative. slept 6 hours. got enema, had BM. Mental Status Exam Mental Status Exam Patient Appearance: Appropriate Patient Orientation: Person and Situation Level of Consciousness: Awake and Appropriate Patient Behavior: Appropriate and Talkative Mood Description: Calm and Cheerful Affect Description: Labile Ability to Follow Directions: Good Speech Pattern: Rapid Hallucinations: None Delusions: Grandiose and Ideas of Reference Thought Process: Racing and Distracted Thought Content: positive for Circumstantial and positive for Poverty of Content Judgement: Poor Diagnostics Vital Signs (24Hr): Vital Signs - 24 hr 05/13/24 19:12 05/14/24 08:05 05/14/24 09:12 Temperature 97.8 F 97.3 F Pulse Rate 83 76 Respiratory Rate 18 Blood Pressure 104/67 132/67 103/58 L Pulse Oximetry 99 97 Oxygen Delivery Method Room Air Room Air BMI result Body Mass Index 24.5 Labs 05/04/24 15:03 05/09/24 08:10 Medications Medications Current Medications Acetaminophen (Acetaminophen 325 Mg Tablet) 650 mg PO Q6H PRN PRN Reason: Headache/Pain Mild Scale (1-3) Al Hydroxide/Mg Hydroxide (Magnesium Hydrox/Alum Hydrox 30 Ml Oral.Susp) 30 ml PO Q6H PRN PRN Reason: Heartburn/Nausea Benztropine Mesylate (Benztropine Mesylate 0.5 Mg Tablet) 0.5 mg PO BEDTIME [facility] Last Admin: 05/13/24 20:56 Dose: 0.5 mg Bisacodyl (Bisacodyl 10 Mg Supp.Rect) 10 mg [place] DAILY PRN PRN Reason: Constipation Divalproex Sodium (Divalproex Sodium Er 500 Mg Tab.Er.24h) 500 mg PO BID [facility] Last Admin: 05/14/24 09:11 Dose: 500 mg Docusate Sodium (Docusate Sodium 100 Mg Capsule) 200 mg PO BID [facility] Last Admin: 05/14/24 09:11 Dose: 200 mg Hydroxyzine HCl (Hydroxyzine Hcl 25 Mg Tablet) 25 mg PO Q6H PRN PRN Reason: Anxiety Last Admin: 05/10/24 17:39 Dose: 25 mg Lisinopril (Lisinopril 2.5 Mg Tablet) 2.5 mg PO DAILY [facility]; Protocol Last Admin: 05/14/24 09:12 Dose: 2.5 mg Magnesium Hydroxide (Milk Of Magnesia 30 Ml Oral.Susp) 30 ml PO DAILY PRN PRN Reason: Constipation Last Admin: 05/11/24 08:29 Dose: 30 ml Quetiapine Fumarate (Quetiapine Fumarate 50 Mg Tablet) 50 mg PO BID PRN PRN Reason: Agitation Last Admin: 05/10/24 05:36 Dose: 50 mg Quetiapine Fumarate (Quetiapine Fumarate 100 Mg Tablet) 100 mg PO DAILY [facility] Last Admin: 05/14/24 09:12 Dose: 100 mg Quetiapine Fumarate (Quetiapine Fumarate 300 Mg Tablet) 300 mg PO BEDTIME [facility] Last Admin: 05/13/24 20:56 Dose: 300 mg Sodium Biphosphate/Sodium Phosphate (Sodium Phosphate,[place]-Dibasic 133 Ml Enema) 133 ml [place] ONCE PRN PRN Reason: severe constipation Last Admin: 05/13/24 18:19 Dose: 133 ml Trazodone HCl (Trazodone Hcl 50 Mg Tablet) 50 mg PO BEDTIME MRX1 PRN PRN Reason: Insomnia Last Admin: 05/12/24 21:32 Dose: 50 mg Allergies Allergies Allergy/AdvReac Type Severity Reaction Status Date / Time No Known Allergies Allergy Verified 05/04/24 15:04 Assessment & Plan Assessment & Plan (1) Bipolar 1 disorder: Status: Acute Code(s): F31.9 - Bipolar disorder, unspecified (2) Dementia: Status: Acute Code(s): F03.90 - Unspecified dementia, unspecified severity, without behavioral disturbance, psychotic disturbance, mood disturbance, and anxiety Plan The patient is an elderly Syrian female, bilingual, with a past history of bipolar disorder and a past history of catatonia with several admissions into the hospital, recently admitted twice in the last 60 days for a presentation of selena. Currently now she has manic symptoms. Plan 1. Continue Seroquel 100 p.o. q.a.m. and 300 mg p.o. q.h.s., also with PRNs Seroquel 50 as needed. 2. Increase Depakote up to 250 mg p.o. b.i.d.. On May 10 we increased up to Depakote 200 p.o. t.i.d.. On May 11 we increased Depakote up to 500 mg p.o. b.i.d.. We will have a Depakote level next week. 3. Lowered to Lamictal up to 50 mg p.o. daily. On May 10 we lowered Lamictal to 25 p.o. daily. On May 11 we discontinue Lamictal 4. Continue with medical workout. 5. 15 minute checks. 05/12/2024 Continue plan of care treatment for mood disorder with psychosis 05/13/2024 Continue Depakote and Seroquel check Depakote level Dulcolax for constipation enema if needed Colace 200 b.i.d. 05/14: check VPA level weds NOC, after about 5 days of medication. continue current mgmt. improving mood. Reason for continued inpatient stay Substantial Risk for: inability to function and rapid decompensation Time Spent With Patient Time: Total time managing care of this patient today ____ minutes.
[2024-05-14 20:00] VITALS: BP 134/65; PULSE 76; RESP 18; TEMP 36.2; O2SAT 100
[2024-05-14] MEDS: Benztropine Mesylate 0.5 MG TABLET PO (20:12)
[2024-05-14] MEDS: traZODone HCL 50 MG TABLET PO (20:12)
[2024-05-14] MEDS: QUEtiapine Fumarate 300 MG TABLET PO (20:12)
[2024-05-15 08:40] VITALS: BP 109/57; PULSE 73; RESP 18; TEMP 36.2; O2SAT 94
[2024-05-15] MEDS: QUEtiapine Fumarate 100 MG TABLET PO (08:42)
[2024-05-15] MEDS: lisinopriL 2.5 MG TABLET PO (08:42)
[2024-05-15] MEDS: Docusate Sodium 100 MG CAPSULE 200 MG PO (08:42)
[2024-05-15] MEDS: Divalproex Sodium ER 500 MG TAB.ER.24H PO (08:42)
[2024-05-15] MEDS: polyethylene glycoL 3350 17 GM POWD.PACK PO (17:41)
--- NOTE | 2024-05-15 17:44 | PC.NURSE ---
Patient complaining of constipation. Order for Miralax obtained from Dr. Oro and administered to patient today at [id number]. Effect pending.
--- NOTE | 2024-05-15 21:32 | HO.PSYCHPN ---
Subjective Subjective Date of Service: 05/15/24 Reason For Visit: Psychosis Interim History: c/o feeling sedated, nodding off during movie shown in group. then started nodding off while talking with MD. encouraged to lie down and rest in bed. Mental Status Exam Mental Status Exam Patient Appearance: Appropriate Patient Orientation: Person and Situation Level of Consciousness: Awake and Appropriate Patient Behavior: Appropriate and Talkative Mood Description: Calm and Cheerful Affect Description: Labile Ability to Follow Directions: Good Speech Pattern: Rapid Hallucinations: None Delusions: Grandiose and Ideas of Reference Thought Process: Racing and Distracted Thought Content: positive for Circumstantial and positive for Poverty of Content Judgement: Poor Diagnostics Vital Signs (24Hr): Vital Signs - 24 hr 05/15/24 08:40 Temperature 97.1 F Pulse Rate 73 Respiratory Rate 18 Blood Pressure 109/57 L Pulse Oximetry 94 Oxygen Delivery Method Room Air BMI result Body Mass Index 24.5 Labs 05/04/24 15:03 05/09/24 08:10 Medications Medications Current Medications Acetaminophen (Acetaminophen 325 Mg Tablet) 650 mg PO Q6H PRN PRN Reason: Headache/Pain Mild Scale (1-3) Al Hydroxide/Mg Hydroxide (Magnesium Hydrox/Alum Hydrox 30 Ml Oral.Susp) 30 ml PO Q6H PRN PRN Reason: Heartburn/Nausea Benztropine Mesylate (Benztropine Mesylate 0.5 Mg Tablet) 0.5 mg PO BEDTIME [facility] Last Admin: 05/14/24 20:12 Dose: 0.5 mg Bisacodyl (Bisacodyl 10 Mg Supp.Rect) 10 mg [place] DAILY PRN PRN Reason: Constipation Divalproex Sodium (Divalproex Sodium Er 500 Mg Tab.Er.24h) 500 mg PO BID [facility] Last Admin: 05/15/24 08:42 Dose: 500 mg Docusate Sodium (Docusate Sodium 100 Mg Capsule) 200 mg PO BID [facility] Last Admin: 05/15/24 08:42 Dose: 200 mg Hydroxyzine HCl (Hydroxyzine Hcl 25 Mg Tablet) 25 mg PO Q6H PRN PRN Reason: Anxiety Last Admin: 05/10/24 17:39 Dose: 25 mg Lisinopril (Lisinopril 2.5 Mg Tablet) 2.5 mg PO DAILY [facility]; Protocol Last Admin: 05/15/24 08:42 Dose: 2.5 mg Magnesium Hydroxide (Milk Of Magnesia 30 Ml Oral.Susp) 30 ml PO DAILY PRN PRN Reason: Constipation Last Admin: 05/11/24 08:29 Dose: 30 ml Polyethylene Glycol (Polyethylene Glycol 3350 17 Gm Powd.Pack) 17 gm PO DAILY PRN PRN Reason: constipation Last Admin: 05/15/24 17:41 Dose: 17 gm Quetiapine Fumarate (Quetiapine Fumarate 50 Mg Tablet) 50 mg PO BID PRN PRN Reason: Agitation Last Admin: 05/10/24 05:36 Dose: 50 mg Quetiapine Fumarate (Quetiapine Fumarate 100 Mg Tablet) 100 mg PO DAILY [facility] Last Admin: 05/15/24 08:42 Dose: 100 mg Quetiapine Fumarate (Quetiapine Fumarate 300 Mg Tablet) 300 mg PO BEDTIME [facility] Last Admin: 05/14/24 20:12 Dose: 300 mg Sodium Biphosphate/Sodium Phosphate (Sodium Phosphate,[place]-Dibasic 133 Ml Enema) 133 ml [place] ONCE PRN PRN Reason: severe constipation Last Admin: 05/13/24 18:19 Dose: 133 ml Trazodone HCl (Trazodone Hcl 50 Mg Tablet) 50 mg PO BEDTIME MRX1 PRN PRN Reason: Insomnia Last Admin: 05/14/24 20:12 Dose: 50 mg Allergies Allergies Allergy/AdvReac Type Severity Reaction Status Date / Time No Known Allergies Allergy Verified 05/04/24 15:04 Assessment & Plan Assessment & Plan (1) Bipolar 1 disorder: Status: Acute Code(s): F31.9 - Bipolar disorder, unspecified (2) Dementia: Status: Acute Code(s): F03.90 - Unspecified dementia, unspecified severity, without behavioral disturbance, psychotic disturbance, mood disturbance, and anxiety Plan The patient is an elderly Pakistani female, bilingual, with a past history of bipolar disorder and a past history of catatonia with several admissions into the hospital, recently admitted twice in the last 60 days for a presentation of selena. Currently now she has manic symptoms. Plan 1. Continue Seroquel 100 p.o. q.a.m. and 300 mg p.o. q.h.s., also with PRNs Seroquel 50 as needed. 2. Increase Depakote up to 250 mg p.o. b.i.d.. On May 10 we increased up to Depakote 200 p.o. t.i.d.. On May 11 we increased Depakote up to 500 mg p.o. b.i.d.. We will have a Depakote level next week. 3. Lowered to Lamictal up to 50 mg p.o. daily. On May 10 we lowered Lamictal to 25 p.o. daily. On May 11 we discontinue Lamictal 4. Continue with medical workout. 5. 15 minute checks. 05/12/2024 Continue plan of care treatment for mood disorder with psychosis 05/13/2024 Continue Depakote and Seroquel check Depakote level Dulcolax for constipation enema if needed Colace 200 b.i.d. 05/14: check VPA level , after about 5 days of medication. continue current mgmt. improving mood. 05/15: morning sedation. change VPA from 500 BID to 1000 QHS as of tomorrow night. labs ordered for tomorrow night. calm, not hypersexual. Reason for continued inpatient stay Substantial Risk for: harm to others and rapid decompensation Time Spent With Patient Time: Total time managing care of this patient today __25__ minutes.
[2024-05-16 08:00] VITALS: BP 116/66; PULSE 70; RESP 18; TEMP 36.9; O2SAT 97
[2024-05-16 09:24] VITALS: BP 116/66
[2024-05-16] MEDS: QUEtiapine Fumarate 100 MG TABLET PO (09:24)
[2024-05-16] MEDS: Docusate Sodium 100 MG CAPSULE 200 MG PO ×2 (09:24→20:22)
[2024-05-16] MEDS: lisinopriL 2.5 MG TABLET PO (09:24)
--- NOTE | 2024-05-16 11:51 | HO.PSYCHPN ---
Subjective Subjective Date of Service: 05/16/24 Reason For Visit: Psychosis Interim History: continues quite sedated this morning. agreeable to DC morning seroquel as she appears overmedicated. no other complaints or requests. per staff, less aggressive and agitated than at admission. no behavioral problems recently. Mental Status Exam Mental Status Exam Patient Appearance: Appropriate Patient Orientation: Person and Situation Level of Consciousness: Awake and Appropriate Patient Behavior: Appropriate and Talkative Mood Description: Calm and Cheerful Affect Description: Appropriate and Constricted Ability to Follow Directions: Good Speech Pattern: Soft-Spoken Hallucinations: None Delusions: Not Present Thought Process: Intact Thought Content: positive for Poverty of Content Judgement: Poor Diagnostics Vital Signs (24Hr): Vital Signs - 24 hr 05/16/24 08:00 05/16/24 09:24 Temperature 98.4 F Pulse Rate 70 Respiratory Rate 18 Blood Pressure 116/66 116/66 Pulse Oximetry 97 Oxygen Delivery Method Room Air BMI result Body Mass Index 24.5 Labs 05/04/24 15:03 05/09/24 08:10 Medications Medications Current Medications Acetaminophen (Acetaminophen 325 Mg Tablet) 650 mg PO Q6H PRN PRN Reason: Headache/Pain Mild Scale (1-3) Al Hydroxide/Mg Hydroxide (Magnesium Hydrox/Alum Hydrox 30 Ml Oral.Susp) 30 ml PO Q6H PRN PRN Reason: Heartburn/Nausea Benztropine Mesylate (Benztropine Mesylate 0.5 Mg Tablet) 0.5 mg PO BEDTIME [facility] Last Admin: 05/15/24 22:12 Dose: Not Given Bisacodyl (Bisacodyl 10 Mg Supp.Rect) 10 mg [place] DAILY PRN PRN Reason: Constipation Divalproex Sodium (Divalproex Sodium Er 500 Mg Tab.Er.24h) 1,000 mg PO BEDTIME [facility] Docusate Sodium (Docusate Sodium 100 Mg Capsule) 200 mg PO BID [facility] Last Admin: 05/16/24 09:24 Dose: 200 mg Hydroxyzine HCl (Hydroxyzine Hcl 25 Mg Tablet) 25 mg PO Q6H PRN PRN Reason: Anxiety Last Admin: 05/10/24 17:39 Dose: 25 mg Lisinopril (Lisinopril 2.5 Mg Tablet) 2.5 mg PO DAILY [facility]; Protocol Last Admin: 05/16/24 09:24 Dose: 2.5 mg Magnesium Hydroxide (Milk Of Magnesia 30 Ml Oral.Susp) 30 ml PO DAILY PRN PRN Reason: Constipation Last Admin: 05/11/24 08:29 Dose: 30 ml Polyethylene Glycol (Polyethylene Glycol 3350 17 Gm Powd.Pack) 17 gm PO DAILY PRN PRN Reason: constipation Last Admin: 05/15/24 17:41 Dose: 17 gm Quetiapine Fumarate (Quetiapine Fumarate 50 Mg Tablet) 50 mg PO BID PRN PRN Reason: Agitation Last Admin: 05/10/24 05:36 Dose: 50 mg Quetiapine Fumarate (Quetiapine Fumarate 300 Mg Tablet) 300 mg PO BEDTIME [facility] Last Admin: 05/15/24 22:12 Dose: Not Given Sodium Biphosphate/Sodium Phosphate (Sodium Phosphate,[place]-Dibasic 133 Ml Enema) 133 ml [place] ONCE PRN PRN Reason: severe constipation Last Admin: 05/13/24 18:19 Dose: 133 ml Trazodone HCl (Trazodone Hcl 50 Mg Tablet) 50 mg PO BEDTIME MRX1 PRN PRN Reason: Insomnia Last Admin: 05/14/24 20:12 Dose: 50 mg Allergies Allergies Allergy/AdvReac Type Severity Reaction Status Date / Time No Known Allergies Allergy Verified 05/04/24 15:04 Assessment & Plan Assessment & Plan (1) Bipolar 1 disorder: Status: Acute Code(s): F31.9 - Bipolar disorder, unspecified (2) Dementia: Status: Acute Code(s): F03.90 - Unspecified dementia, unspecified severity, without behavioral disturbance, psychotic disturbance, mood disturbance, and anxiety Plan The patient is an elderly Pashto female, bilingual, with a past history of bipolar disorder and a past history of catatonia with several admissions into the hospital, recently admitted twice in the last 60 days for a presentation of selena. Currently now she has manic symptoms. Plan 1. Continue Seroquel 100 p.o. q.a.m. and 300 mg p.o. q.h.s., also with PRNs Seroquel 50 as needed. 2. Increase Depakote up to 250 mg p.o. b.i.d.. On May 10 we increased up to Depakote 200 p.o. t.i.d.. On May 11 we increased Depakote up to 500 mg p.o. b.i.d.. We will have a Depakote level next week. 3. Lowered to Lamictal up to 50 mg p.o. daily. On May 10 we lowered Lamictal to 25 p.o. daily. On May 11 we discontinue Lamictal 4. Continue with medical workout. 5. 15 minute checks. 05/12/2024 Continue plan of care treatment for mood disorder with psychosis 05/13/2024 Continue Depakote and Seroquel check Depakote level Dulcolax for constipation enema if needed Colace 200 b.i.d. 05/14: check VPA level weds , after about 5 days of medication. continue current mgmt. improving mood. 05/15: morning sedation. change VPA from 500 BID to 1000 QHS as of tomorrow night. labs ordered for tomorrow night. calm, not hypersexual. 05/16: sedated. selena quashed. DC morning seroquel 100. continue HS 300 for now. Reason for continued inpatient stay Substantial Risk for: inability to function and rapid decompensation Time Spent With Patient Time: Total time managing care of this patient today ____ minutes.
[2024-05-16 20:00] VITALS: BP 115/74; PULSE 76; RESP 18; TEMP 36.7; O2SAT 98
[2024-05-16] MEDS: Benztropine Mesylate 0.5 MG TABLET PO (20:22)
[2024-05-16] MEDS: QUEtiapine Fumarate 300 MG TABLET PO (20:22)
[2024-05-16] MEDS: Divalproex Sodium ER 500 MG TAB.ER.24H 1000 MG PO (20:23)
[2024-05-16 20:31] LABS: Ammonia 25 umol/L (13-55)
[2024-05-16 20:38] LABS: Valproate 50.2 mcg/mL (50.0-100.0)
[2024-05-16 20:41] LABS: Alanine Aminotransferase 10 U/L (0-31); Albumin Level 3.8 g/dL (3.5-5.0); Alkaline Phosphatase 96 U/L (39-117); Anion Gap 16 (12-20); Aspartate Amino Transferase 15 U/L (5-31); Bilirubin Direct 0.2 mg/dL (0.0-0.5); Bilirubin Total 0.6 mg/dL (0.0-1.0); Blood Urea Nitrogen 26 mg/dL (9-16); Calcium 9.2 mg/dL (8.4-10.2); Carbon Dioxide 27 mmol/L (22-29); Chloride 104 mmol/L (96-108); Creatinine Clr Calc Pharmacy 44.6; Estimated Glomerular Filt Rate > 60; Glucose Random 130 mg/dL (60-115); Potassium 4.1 mmol/L (3.3-5.1); Sodium 143 mmol/L (135-145); Total Protein 6.7 g/dL (6.5-8.0)
[2024-05-17] MEDS: hydrOXYzine HCL 25 MG TABLET PO (05:41)
[2024-05-17] MEDS: QUEtiapine Fumarate 50 MG TABLET PO (05:41)
[2024-05-17 07:00] VITALS: BMI 24.3
[2024-05-17 08:00] VITALS: BP 120/63; PULSE 73; RESP 18; TEMP 36.2; O2SAT 98
[2024-05-17 08:02] VITALS: BP 120/63
[2024-05-17] MEDS: lisinopriL 2.5 MG TABLET PO (08:02)
[2024-05-17] MEDS: Docusate Sodium 100 MG CAPSULE 200 MG PO ×2 (08:02→20:21)
--- NOTE | 2024-05-17 17:08 | P.PNPSI_ITS ---
Subjective Subjective Date of Service: 05/17/24 Reason For Visit: Psychosis Interim History: calm, cooperative. more lively this morning than prior. reviewed decrease in medication dosage, which appeared to please pt. Mental Status Exam Mental Status Exam Patient Appearance: Appropriate Patient Orientation: Person and Situation Level of Consciousness: Awake and Appropriate Patient Behavior: Appropriate and Talkative Mood Description: Calm and Cheerful Affect Description: Appropriate and Constricted Ability to Follow Directions: Good Speech Pattern: Soft-Spoken Hallucinations: None Delusions: Not Present Thought Process: Intact Thought Content: positive for Poverty of Content Judgement: Poor Diagnostics Vital Signs (24Hr): Vital Signs - 24 hr 05/16/24 20:00 05/17/24 08:00 05/17/24 08:02 Temperature 98.1 F 97.1 F Pulse Rate 76 73 Respiratory Rate 18 18 Blood Pressure 115/74 120/63 120/63 Pulse Oximetry 98 98 Oxygen Delivery Method Room Air Room Air BMI result Body Mass Index 24.3 Labs 05/04/24 15:03 05/16/24 20:12 Labs: Laboratory Results - last 48 hr 05/16/24 20:12 Sodium 143 Potassium 4.1 Chloride 104 Carbon Dioxide 27 Anion Gap 16 BUN 26 H Creatinine 0.90 Estim Creat Clear Calc 44.6 Estimated GFR > 60 Random Glucose 130 H Calcium 9.2 Total Bilirubin 0.6 Direct Bilirubin 0.2 AST 15 ALT 10 Alkaline Phosphatase 96 Ammonia 25 Total Protein 6.7 Albumin 3.8 Valproic Acid 50.2 Imaging Radiology Impressions: ITS Impressions Head CT 05/16/24 14:30 IMPRESSION: There are no acute bleeds or territorial infarcts. No masses are demonstrated. Brain parenchymal attenuation is unremarkable. Medications Medications Current Medications Acetaminophen (Acetaminophen 325 Mg Tablet) 650 mg PO Q6H PRN PRN Reason: Headache/Pain Mild Scale (1-3) Al Hydroxide/Mg Hydroxide (Magnesium Hydrox/Alum Hydrox 30 Ml Oral.Susp) 30 ml PO Q6H PRN PRN Reason: Heartburn/Nausea Benztropine Mesylate (Benztropine Mesylate 0.5 Mg Tablet) 0.5 mg PO BEDTIME [facility] Last Admin: 05/16/24 20:22 Dose: 0.5 mg Bisacodyl (Bisacodyl 10 Mg Supp.Rect) 10 mg [place] DAILY PRN PRN Reason: Constipation Divalproex Sodium (Divalproex Sodium Er 500 Mg Tab.Er.24h) 1,000 mg PO BEDTIME [facility] Last Admin: 05/16/24 20:23 Dose: 1,000 mg Docusate Sodium (Docusate Sodium 100 Mg Capsule) 200 mg PO BID [facility] Last Admin: 05/17/24 08:02 Dose: 200 mg Hydroxyzine HCl (Hydroxyzine Hcl 25 Mg Tablet) 25 mg PO Q6H PRN PRN Reason: Anxiety Last Admin: 05/17/24 05:41 Dose: 25 mg Lisinopril (Lisinopril 2.5 Mg Tablet) 2.5 mg PO DAILY [facility]; Protocol Last Admin: 05/17/24 08:02 Dose: 2.5 mg Magnesium Hydroxide (Milk Of Magnesia 30 Ml Oral.Susp) 30 ml PO DAILY PRN PRN Reason: Constipation Last Admin: 05/11/24 08:29 Dose: 30 ml Polyethylene Glycol (Polyethylene Glycol 3350 17 Gm Powd.Pack) 17 gm PO DAILY PRN PRN Reason: constipation Last Admin: 05/15/24 17:41 Dose: 17 gm Quetiapine Fumarate (Quetiapine Fumarate 50 Mg Tablet) 50 mg PO BID PRN PRN Reason: Agitation Last Admin: 05/17/24 05:41 Dose: 50 mg Quetiapine Fumarate (Quetiapine Fumarate 300 Mg Tablet) 300 mg PO BEDTIME [facility] Last Admin: 05/16/24 20:22 Dose: 300 mg Sodium Biphosphate/Sodium Phosphate (Sodium Phosphate,[place]-Dibasic 133 Ml Enema) 133 ml [place] ONCE PRN PRN Reason: severe constipation Last Admin: 05/13/24 18:19 Dose: 133 ml Trazodone HCl (Trazodone Hcl 50 Mg Tablet) 50 mg PO BEDTIME MRX1 PRN PRN Reason: Insomnia Last Admin: 05/14/24 20:12 Dose: 50 mg Allergies Allergies Allergy/AdvReac Type Severity Reaction Status Date / Time No Known Allergies Allergy Verified 05/04/24 15:04 Assessment & Plan Assessment & Plan (1) Bipolar 1 disorder: Status: Acute Code(s): F31.9 - Bipolar disorder, unspecified (2) Dementia: Status: Acute Code(s): F03.90 - Unspecified dementia, unspecified severity, without behavioral disturbance, psychotic disturbance, mood disturbance, and anxiety Plan The patient is an elderly [place] female, bilingual, with a past history of bipolar disorder and a past history of catatonia with several admissions into the hospital, recently admitted twice in the last 60 days for a presentation of selena. Currently now she has manic symptoms. Plan 1. Continue Seroquel 100 p.o. q.a.m. and 300 mg p.o. q.h.s., also with PRNs Seroquel 50 as needed. 2. Increase Depakote up to 250 mg p.o. b.i.d.. On May 10 we increased up to Depakote 200 p.o. t.i.d.. On May 11 we increased Depakote up to 500 mg p.o. b.i.d.. We will have a Depakote level next week. 3. Lowered to Lamictal up to 50 mg p.o. daily. On May 10 we lowered Lamictal to 25 p.o. daily. On May 11 we discontinue Lamictal 4. Continue with medical workout. 5. 15 minute checks. 05/12/2024 Continue plan of care treatment for mood disorder with psychosis 05/13/2024 Continue Depakote and Seroquel check Depakote level Dulcolax for constipation enema if needed Colace 200 b.i.d. 05/14: check VPA level weds , after about 5 days of medication. continue current mgmt. improving mood. 05/15: morning sedation. change VPA from 500 BID to 1000 QHS as of tomorrow night. labs ordered for tomorrow night. calm, not hypersexual. 05/16: sedated. selena quashed. DC morning seroquel 100. continue HS 300 for now. 05/17: calm, cooperative, pleasant. VPA level 50. follow for next several days for manic Sx versus sedation since seroquel 100 QAM was DCed as of this morning. Reason for continued inpatient stay Substantial Risk for: harm to others, inability to function and rapid decompensation Time Spent With Patient Time: Total time managing care of this patient today ____ minutes.
[2024-05-17] MEDS: Divalproex Sodium ER 500 MG TAB.ER.24H 1000 MG PO (20:21)
[2024-05-17] MEDS: Benztropine Mesylate 0.5 MG TABLET PO (20:21)
[2024-05-17 21:15] VITALS: BP 125/65; PULSE 80; RESP 18; TEMP 36.8; O2SAT 100
[2024-05-18] MEDS: QUEtiapine Fumarate 300 MG TABLET PO ×2 (02:28→20:51)
[2024-05-18 08:00] VITALS: BP 108/58; PULSE 89; RESP 18; TEMP 36.7; O2SAT 99
[2024-05-18 08:09] VITALS: BP 108/58
[2024-05-18] MEDS: lisinopriL 2.5 MG TABLET PO (08:09)
[2024-05-18] MEDS: Docusate Sodium 100 MG CAPSULE 200 MG PO ×2 (08:10→20:49)
--- NOTE | 2024-05-18 16:41 | HO.PSYCHPN ---
Subjective Subjective Date of Service: 05/18/24 Reason For Visit: Psychosis Subjective Notes: Conditional Voluntary Mental Status Exam Mental Status Exam Patient Appearance: Well Grooomed and Bizarre Patient Orientation: Person and Situation Level of Consciousness: Restless Patient Behavior: Suspicious Mood Description: Calm Affect Description: Labile Patient Cognition Impaired: Yes Ability to Follow Directions: Fair Speech Pattern: Clear and Rapid Hallucinations: None Delusions: Grandiose and Ideas of Reference Thought Process: Racing, Distracted and Evasive Thought Content: positive for [place] and positive for Poverty of Content Judgement: Poor Diagnostics Vital Signs (24Hr): Vital Signs - 24 hr 05/17/24 21:15 05/18/24 08:00 05/18/24 08:09 Temperature 98.3 F 98.1 F Pulse Rate 80 89 Respiratory Rate 18 18 Blood Pressure 125/65 108/58 L 108/58 L Pulse Oximetry 100 99 Oxygen Delivery Method Room Air Room Air BMI result Body Mass Index 24.3 Labs 05/04/24 15:03 05/16/24 20:12 Labs: Laboratory Results - last 48 hr 05/16/24 20:12 Sodium 143 Potassium 4.1 Chloride 104 Carbon Dioxide 27 Anion Gap 16 BUN 26 H Creatinine 0.90 Estim Creat Clear Calc 44.6 Estimated GFR > 60 Random Glucose 130 H Calcium 9.2 Total Bilirubin 0.6 Direct Bilirubin 0.2 AST 15 ALT 10 Alkaline Phosphatase 96 Ammonia 25 Total Protein 6.7 Albumin 3.8 Valproic Acid 50.2 Imaging Radiology Impressions: ITS Impressions Head CT 05/16/24 14:30 IMPRESSION: There are no acute bleeds or territorial infarcts. No masses are demonstrated. Brain parenchymal attenuation is unremarkable. Medications Medications Current Medications Acetaminophen (Acetaminophen 325 Mg Tablet) 650 mg PO Q6H PRN PRN Reason: Headache/Pain Mild Scale (1-3) Al Hydroxide/Mg Hydroxide (Magnesium Hydrox/Alum Hydrox 30 Ml Oral.Susp) 30 ml PO Q6H PRN PRN Reason: Heartburn/Nausea Benztropine Mesylate (Benztropine Mesylate 0.5 Mg Tablet) 0.5 mg PO BEDTIME SALLY Last Admin: 05/17/24 20:21 Dose: 0.5 mg Bisacodyl (Bisacodyl 10 Mg Supp.Rect) 10 mg [place] DAILY PRN PRN Reason: Constipation Divalproex Sodium (Divalproex Sodium Er 500 Mg Tab.Er.24h) 1,000 mg PO BEDTIME SALLY Last Admin: 05/17/24 20:21 Dose: 1,000 mg Docusate Sodium (Docusate Sodium 100 Mg Capsule) 200 mg PO BID SALLY Last Admin: 05/18/24 08:10 Dose: 200 mg Hydroxyzine HCl (Hydroxyzine Hcl 25 Mg Tablet) 25 mg PO Q6H PRN PRN Reason: Anxiety Last Admin: 05/17/24 05:41 Dose: 25 mg Lisinopril (Lisinopril 2.5 Mg Tablet) 2.5 mg PO DAILY SALLY; Protocol Last Admin: 05/18/24 08:09 Dose: 2.5 mg Magnesium Hydroxide (Milk Of Magnesia 30 Ml Oral.Susp) 30 ml PO DAILY PRN PRN Reason: Constipation Last Admin: 05/11/24 08:29 Dose: 30 ml Polyethylene Glycol (Polyethylene Glycol 3350 17 Gm Powd.Pack) 17 gm PO DAILY PRN PRN Reason: constipation Last Admin: 05/15/24 17:41 Dose: 17 gm Quetiapine Fumarate (Quetiapine Fumarate 50 Mg Tablet) 50 mg PO BID PRN PRN Reason: Agitation Last Admin: 05/17/24 05:41 Dose: 50 mg Quetiapine Fumarate (Quetiapine Fumarate 300 Mg Tablet) 300 mg PO BEDTIME SALLY Last Admin: 05/18/24 02:28 Dose: 300 mg Sodium Biphosphate/Sodium Phosphate (Sodium Phosphate,[place]-Dibasic 133 Ml Enema) 133 ml [place] ONCE PRN PRN Reason: severe constipation Last Admin: 05/13/24 18:19 Dose: 133 ml Trazodone HCl (Trazodone Hcl 50 Mg Tablet) 50 mg PO BEDTIME MRX1 PRN PRN Reason: Insomnia Last Admin: 05/14/24 20:12 Dose: 50 mg Allergies Allergies Allergy/AdvReac Type Severity Reaction Status Date / Time No Known Allergies Allergy Verified 05/04/24 15:04 Assessment & Plan Assessment & Plan (1) Bipolar 1 disorder: Status: Acute Code(s): F31.9 - Bipolar disorder, unspecified (2) Dementia: Status: Acute Code(s): F03.90 - Unspecified dementia, unspecified severity, without behavioral disturbance, psychotic disturbance, mood disturbance, and anxiety Plan The patient is an elderly [place] female, bilingual, with a past history of bipolar disorder and a past history of catatonia with several admissions into the hospital, recently admitted twice in the last 60 days for a presentation of selena. Currently now she has manic symptoms. Plan 1. Continue Seroquel 100 p.o. q.a.m. and 300 mg p.o. q.h.s., also with PRNs Seroquel 50 as needed. 2. Increase Depakote up to 250 mg p.o. b.i.d.. On May 10 we increased up to Depakote 200 p.o. t.i.d.. On May 11 we increased Depakote up to 500 mg p.o. b.i.d.. We will have a Depakote level next week. 05/17: calm, cooperative, pleasant. VPA level 50. 3. Lowered to Lamictal up to 50 mg p.o. daily. On May 10 we lowered Lamictal to 25 p.o. daily. On May 11 we discontinue Lamictal 4. Continue with medical workout. 5. 15 minute checks. 6. On May 18, we discussed at length with her daughter Love about treatment options and we are going to increase Depakote ER up to 1500 mg and recheck next Tuesday. 7. Seroquel was lowered up to 300 mg p.o. q.h.s. due to over-sedation a few days ago. We are going to keep it on the same dose so far, she remains manic. Reason for continued inpatient stay Substantial Risk for: inability to function, rapid decompensation and med/psych decompensation Time Spent With Patient Time: Total time managing care of this patient today _20___ minutes.
[2024-05-18 20:00] VITALS: BP 132/68; PULSE 66; RESP 16; TEMP 36.4; O2SAT 98
[2024-05-18] MEDS: hydrOXYzine HCL 25 MG TABLET PO (20:47)
[2024-05-18] MEDS: Divalproex Sodium ER 500 MG TAB.ER.24H 1500 MG PO (20:48)
[2024-05-18] MEDS: Benztropine Mesylate 0.5 MG TABLET PO (20:51)
[2024-05-18] MEDS: Acetaminophen 325 MG TABLET 650 MG PO (20:51)
[2024-05-19 08:00] VITALS: BP 120/67; PULSE 70; RESP 18; TEMP 36.6; O2SAT 97
[2024-05-19] MEDS: lisinopriL 2.5 MG TABLET PO (08:09)
[2024-05-19] MEDS: Docusate Sodium 100 MG CAPSULE 200 MG PO ×2 (08:10→21:05)
--- NOTE | 2024-05-19 08:11 | HO.PSYCHPN ---
Subjective Subjective Date of Service: 05/19/24 Reason For Visit: Psychosis Interim History: met with patient. Discussed with Nursing. Overall slept well. Intrusive at times. With marketing copywriter was pleasant. Well presented. Reported feeling she was doing okay. Was making unusual statements that were not clearly related to content and appeared paranoid I know about my and unable to connec this to content of topic being discussed or asked and unable to elaborate. feeling safe and well cared for. Medication Compliance: Yes Review of Systems Review of Systems Yes all other systems are reviewed and are negative Mental Status Exam Mental Status Exam Patient Appearance: Well Grooomed and Bizarre Patient Orientation: Person and Situation Level of Consciousness: Restless Patient Behavior: Suspicious Mood Description: Calm Affect Description: Labile Patient Cognition Impaired: Yes Ability to Follow Directions: Fair Speech Pattern: Clear and Rapid Diagnostics Vital Signs (24Hr): Vital Signs - 24 hr 05/18/24 20:00 Temperature 97.6 F Pulse Rate 66 Respiratory Rate 16 Blood Pressure 132/68 Pulse Oximetry 98 Oxygen Delivery Method Room Air BMI result Body Mass Index 24.3 Labs 05/04/24 15:03 05/16/24 20:12 Imaging Radiology Impressions: ITS Impressions Head CT 05/16/24 14:30 IMPRESSION: There are no acute bleeds or territorial infarcts. No masses are demonstrated. Brain parenchymal attenuation is unremarkable. Medications Medications Current Medications Acetaminophen (Acetaminophen 325 Mg Tablet) 650 mg PO Q6H PRN PRN Reason: Headache/Pain Mild Scale (1-3) Last Admin: 05/18/24 20:51 Dose: 650 mg Al Hydroxide/Mg Hydroxide (Magnesium Hydrox/Alum Hydrox 30 Ml Oral.Susp) 30 ml PO Q6H PRN PRN Reason: Heartburn/Nausea Benztropine Mesylate (Benztropine Mesylate 0.5 Mg Tablet) 0.5 mg PO BEDTIME [facility] Last Admin: 05/18/24 20:51 Dose: 0.5 mg Bisacodyl (Bisacodyl 10 Mg Supp.Rect) 10 mg [place] DAILY PRN PRN Reason: Constipation Divalproex Sodium (Divalproex Sodium Er 500 Mg Tab.Er.24h) 1,500 mg PO BEDTIME [facility] Last Admin: 05/18/24 20:48 Dose: 1,500 mg Docusate Sodium (Docusate Sodium 100 Mg Capsule) 200 mg PO BID [facility] Last Admin: 05/19/24 08:10 Dose: 200 mg Hydroxyzine HCl (Hydroxyzine Hcl 25 Mg Tablet) 25 mg PO Q6H PRN PRN Reason: Anxiety Last Admin: 05/18/24 20:47 Dose: 25 mg Lisinopril (Lisinopril 2.5 Mg Tablet) 2.5 mg PO DAILY SALLY; Protocol Last Admin: 05/19/24 08:09 Dose: 2.5 mg Magnesium Hydroxide (Milk Of Magnesia 30 Ml Oral.Susp) 30 ml PO DAILY PRN PRN Reason: Constipation Last Admin: 05/11/24 08:29 Dose: 30 ml Polyethylene Glycol (Polyethylene Glycol 3350 17 Gm Powd.Pack) 17 gm PO DAILY PRN PRN Reason: constipation Last Admin: 05/15/24 17:41 Dose: 17 gm Quetiapine Fumarate (Quetiapine Fumarate 50 Mg Tablet) 50 mg PO BID PRN PRN Reason: Agitation Last Admin: 05/17/24 05:41 Dose: 50 mg Quetiapine Fumarate (Quetiapine Fumarate 300 Mg Tablet) 300 mg PO BEDTIME SALLY Last Admin: 05/18/24 20:51 Dose: 300 mg Sodium Biphosphate/Sodium Phosphate (Sodium Phosphate,[place]-Dibasic 133 Ml Enema) 133 ml MN ONCE PRN PRN Reason: severe constipation Last Admin: 05/13/24 18:19 Dose: 133 ml Trazodone HCl (Trazodone Hcl 50 Mg Tablet) 50 mg PO BEDTIME MRX1 PRN PRN Reason: Insomnia Last Admin: 05/14/24 20:12 Dose: 50 mg Allergies Allergies Allergy/AdvReac Type Severity Reaction Status Date / Time No Known Allergies Allergy Verified 05/04/24 15:04 Assessment & Plan Assessment & Plan (1) Bipolar 1 disorder: Status: Acute Code(s): F31.9 - Bipolar disorder, unspecified (2) Dementia: Status: Acute Code(s): F03.90 - Unspecified dementia, unspecified severity, without behavioral disturbance, psychotic disturbance, mood disturbance, and anxiety Plan The patient is an elderly Sinhala female, bilingual, with a past history of bipolar disorder and a past history of catatonia with several admissions into the hospital, recently admitted twice in the last 60 days for a presentation of selena. Currently now she has manic symptoms. Plan 1. Continue Seroquel 100 p.o. q.a.m. and 300 mg p.o. q.h.s., also with PRNs Seroquel 50 as needed. 2. Increase Depakote up to 250 mg p.o. b.i.d.. On May 10 we increased up to Depakote 200 p.o. t.i.d.. On May 11 we increased Depakote up to 500 mg p.o. b.i.d.. We will have a Depakote level next week. 05/17: calm, cooperative, pleasant. VPA level 50. 3. Lowered to Lamictal up to 50 mg p.o. daily. On May 10 we lowered Lamictal to 25 p.o. daily. On May 11 we discontinue Lamictal 4. Continue with medical workout. 5. 15 minute checks. 6. On May 18, we discussed at length with her daughter Love about treatment options and we are going to increase Depakote ER up to 1500 mg and recheck next Tuesday. 7. Seroquel was lowered up to 300 mg p.o. q.h.s. due to over-sedation a few days ago. We are going to keep it on the same dose so far, she remains manic. 05/19/2024: No changes. Depakote just increased Reason for continued inpatient stay Substantial Risk for: inability to function and rapid decompensation Time Spent With Patient Time: Total time managing care of this patient today ____ minutes.
[2024-05-19 20:00] VITALS: BP 135/74; PULSE 79; RESP 16; TEMP 36.2; O2SAT 97
[2024-05-19] MEDS: Divalproex Sodium ER 500 MG TAB.ER.24H 1500 MG PO (21:02)
[2024-05-19] MEDS: Benztropine Mesylate 0.5 MG TABLET PO (21:03)
[2024-05-19] MEDS: QUEtiapine Fumarate 300 MG TABLET PO (21:03)
[2024-05-20 07:55] VITALS: BP 107/60; PULSE 65; RESP 18; TEMP 36.8; O2SAT 96
--- NOTE | 2024-05-20 10:26 | HO.PSYCHPN ---
Subjective Subjective Date of Service: 05/20/24 Reason For Visit: Psychosis Interim History: met with patient. Discussed with Nursing. Overall slept well. Intrusive at times. Declined meds and might be a little more impulsive around personal space. With health underwriter was pleasant. Well presented. Reported feeling she was doing okay. Is paranoid, but also reports feeling safe and well cared for. Medication Compliance: Intermittent Side effects from medications: No Attending Groups: Yes Review of Systems Acute medical concerns: No Review of Systems Review of Systems Yes all other systems are reviewed and are negative Mental Status Exam Mental Status Exam Patient Appearance: Well Grooomed and Bizarre Patient Orientation: Person and Situation Level of Consciousness: Restless Patient Behavior: Suspicious Mood Description: Calm Affect Description: Labile Patient Cognition Impaired: Yes Ability to Follow Directions: Fair Speech Pattern: Clear and Rapid Diagnostics Vital Signs (24Hr): Vital Signs - 24 hr 05/19/24 20:00 05/20/24 07:55 Temperature 97.1 F 98.2 F Pulse Rate 79 65 Respiratory Rate 16 18 Blood Pressure 135/74 107/60 Pulse Oximetry 97 96 Oxygen Delivery Method Room Air Room Air BMI result Body Mass Index 24.3 Labs 05/04/24 15:03 05/16/24 20:12 Imaging Radiology Impressions: ITS Impressions Head CT 05/16/24 14:30 IMPRESSION: There are no acute bleeds or territorial infarcts. No masses are demonstrated. Brain parenchymal attenuation is unremarkable. Medications Medications Current Medications Acetaminophen (Acetaminophen 325 Mg Tablet) 650 mg PO Q6H PRN PRN Reason: Headache/Pain Mild Scale (1-3) Last Admin: 05/18/24 20:51 Dose: 650 mg Al Hydroxide/Mg Hydroxide (Magnesium Hydrox/Alum Hydrox 30 Ml Oral.Susp) 30 ml PO Q6H PRN PRN Reason: Heartburn/Nausea Benztropine Mesylate (Benztropine Mesylate 0.5 Mg Tablet) 0.5 mg PO BEDTIME [facility] Last Admin: 05/19/24 21:03 Dose: 0.5 mg Bisacodyl (Bisacodyl 10 Mg Supp.Rect) 10 mg [place] DAILY PRN PRN Reason: Constipation Divalproex Sodium (Divalproex Sodium Er 500 Mg Tab.Er.24h) 1,500 mg PO BEDTIME SALLY Last Admin: 05/19/24 21:02 Dose: 1,500 mg Docusate Sodium (Docusate Sodium 100 Mg Capsule) 200 mg PO BID SALLY Last Admin: 05/20/24 08:30 Dose: Not Given Hydroxyzine HCl (Hydroxyzine Hcl 25 Mg Tablet) 25 mg PO Q6H PRN PRN Reason: Anxiety Last Admin: 05/18/24 20:47 Dose: 25 mg Lisinopril (Lisinopril 2.5 Mg Tablet) 2.5 mg PO DAILY SALLY; Protocol Last Admin: 05/20/24 08:29 Dose: Not Given Magnesium Hydroxide (Milk Of Magnesia 30 Ml Oral.Susp) 30 ml PO DAILY PRN PRN Reason: Constipation Last Admin: 05/11/24 08:29 Dose: 30 ml Polyethylene Glycol (Polyethylene Glycol 3350 17 Gm Powd.Pack) 17 gm PO DAILY PRN PRN Reason: constipation Last Admin: 05/15/24 17:41 Dose: 17 gm Quetiapine Fumarate (Quetiapine Fumarate 50 Mg Tablet) 50 mg PO BID PRN PRN Reason: Agitation Last Admin: 05/17/24 05:41 Dose: 50 mg Quetiapine Fumarate (Quetiapine Fumarate 300 Mg Tablet) 300 mg PO BEDTIME [facility]ALLY Last Admin: 05/19/24 21:03 Dose: 300 mg Sodium Biphosphate/Sodium Phosphate (Sodium Phosphate,[place]-Dibasic 133 Ml Enema) 133 ml [place] ONCE PRN PRN Reason: severe constipation Last Admin: 05/13/24 18:19 Dose: 133 ml Trazodone HCl (Trazodone Hcl 50 Mg Tablet) 50 mg PO BEDTIME MRX1 PRN PRN Reason: Insomnia Last Admin: 05/14/24 20:12 Dose: 50 mg Allergies Allergies Allergy/AdvReac Type Severity Reaction Status Date / Time No Known Allergies Allergy Verified 05/04/24 15:04 Assessment & Plan Assessment & Plan (1) Bipolar 1 disorder: Status: Acute Code(s): F31.9 - Bipolar disorder, unspecified (2) Dementia: Status: Acute Code(s): F03.90 - Unspecified dementia, unspecified severity, without behavioral disturbance, psychotic disturbance, mood disturbance, and anxiety Plan The patient is an elderly [place] female, bilingual, with a past history of bipolar disorder and a past history of catatonia with several admissions into the hospital, recently admitted twice in the last 60 days for a presentation of selena. Currently now she has manic symptoms. Plan 1. Continue Seroquel 100 p.o. q.a.m. and 300 mg p.o. q.h.s., also with PRNs Seroquel 50 as needed. 2. Increase Depakote up to 250 mg p.o. b.i.d.. On May 10 we increased up to Depakote 200 p.o. t.i.d.. On May 11 we increased Depakote up to 500 mg p.o. b.i.d.. We will have a Depakote level next week. 05/17: calm, cooperative, pleasant. VPA level 50. 3. Lowered to Lamictal up to 50 mg p.o. daily. On May 10 we lowered Lamictal to 25 p.o. daily. On May 11 we discontinue Lamictal 4. Continue with medical workout. 5. 15 minute checks. 6. On May 18, we discussed at length with her daughter Love about treatment options and we are going to increase Depakote ER up to 1500 mg and recheck next Tuesday. 7. Seroquel was lowered up to 300 mg p.o. q.h.s. due to over-sedation a few days ago. We are going to keep it on the same dose so far, she remains manic. 05/20/2024: No changes. Depakote just increased Reason for continued inpatient stay Substantial Risk for: inability to function and rapid decompensation Time Spent With Patient Time: Total time managing care of this patient today ____ minutes.
[2024-05-20 20:00] VITALS: BP 128/78; PULSE 78; RESP 18; TEMP 36.2; O2SAT 97
[2024-05-20] MEDS: Divalproex Sodium ER 500 MG TAB.ER.24H 1500 MG PO (21:33)
[2024-05-20] MEDS: QUEtiapine Fumarate 300 MG TABLET PO (21:34)
[2024-05-20] MEDS: Benztropine Mesylate 0.5 MG TABLET PO (21:35)
[2024-05-21 08:30] LABS: Valproate 142.5 mcg/mL (50.0-100.0)
[2024-05-21 08:41] VITALS: BP 121/69; PULSE 79; RESP 16; TEMP 36.3; O2SAT 98
[2024-05-21] MEDS: Docusate Sodium 100 MG CAPSULE 200 MG PO ×2 (08:43→21:04)
[2024-05-21] MEDS: lisinopriL 2.5 MG TABLET PO (08:43)
--- NOTE | 2024-05-21 13:59 | P.PNPSI_ITS ---
Subjective Subjective Date of Service: 05/21/24 Reason For Visit: Psychosis Subjective Notes: Conditional Voluntary Interim History: The nursing staff reported the patient had flat affect, agitated at times hyperverbal. She refused her medications in the morning. Today her Depakote level was over 140. We are going to repeat Depakote tomorrow with comprehensive metabolic panel. On interview the patient denies new symptoms. Mental Status Exam Mental Status Exam Patient Appearance: Appropriate Patient Orientation: Person and Situation Level of Consciousness: Awake and Appropriate Patient Behavior: Guarded and Passive Mood Description: Withdrawn Affect Description: Constricted Patient Cognition Impaired: Yes Ability to Follow Directions: Good Speech Pattern: Clear Hallucinations: None Delusions: Grandiose Thought Process: Distracted and Evasive Thought Content: positive for [place] and positive for Poverty of Content Judgement: Poor Diagnostics Vital Signs (24Hr): Vital Signs - 24 hr 05/20/24 20:00 05/21/24 08:41 Temperature 97.2 F 97.3 F Pulse Rate 78 79 Respiratory Rate 18 16 Blood Pressure 128/78 121/69 Pulse Oximetry 97 98 Oxygen Delivery Method Room Air Room Air BMI result Body Mass Index 24.3 Labs 05/04/24 15:03 05/16/24 20:12 Labs: Laboratory Results - last 48 hr 05/21/24 08:09 Valproic Acid 142.5 H* Imaging Radiology Impressions: ITS Impressions Head CT 05/16/24 14:30 IMPRESSION: There are no acute bleeds or territorial infarcts. No masses are demonstrated. Brain parenchymal attenuation is unremarkable. Medications Medications Current Medications Acetaminophen (Acetaminophen 325 Mg Tablet) 650 mg PO Q6H PRN PRN Reason: Headache/Pain Mild Scale (1-3) Last Admin: 05/18/24 20:51 Dose: 650 mg Al Hydroxide/Mg Hydroxide (Magnesium Hydrox/Alum Hydrox 30 Ml Oral.Susp) 30 ml PO Q6H PRN PRN Reason: Heartburn/Nausea Benztropine Mesylate (Benztropine Mesylate 0.5 Mg Tablet) 0.5 mg PO BEDTIME [facility]ALLY Last Admin: 05/20/24 21:35 Dose: 0.5 mg Bisacodyl (Bisacodyl 10 Mg Supp.Rect) 10 mg [place] DAILY PRN PRN Reason: Constipation Divalproex Sodium (Divalproex Sodium Er 500 Mg Tab.Er.24h) 1,500 mg PO BEDTIME SALLY Last Admin: 05/20/24 21:33 Dose: 1,500 mg Docusate Sodium (Docusate Sodium 100 Mg Capsule) 200 mg PO BID SALLY Last Admin: 05/21/24 08:43 Dose: 200 mg Hydroxyzine HCl (Hydroxyzine Hcl 25 Mg Tablet) 25 mg PO Q6H PRN PRN Reason: Anxiety Last Admin: 05/18/24 20:47 Dose: 25 mg Lisinopril (Lisinopril 2.5 Mg Tablet) 2.5 mg PO DAILY SALLY; Protocol Last Admin: 05/21/24 08:43 Dose: 2.5 mg Magnesium Hydroxide (Milk Of Magnesia 30 Ml Oral.Susp) 30 ml PO DAILY PRN PRN Reason: Constipation Last Admin: 05/11/24 08:29 Dose: 30 ml Polyethylene Glycol (Polyethylene Glycol 3350 17 Gm Powd.Pack) 17 gm PO DAILY PRN PRN Reason: constipation Last Admin: 05/15/24 17:41 Dose: 17 gm Quetiapine Fumarate (Quetiapine Fumarate 50 Mg Tablet) 50 mg PO BID PRN PRN Reason: Agitation Last Admin: 05/17/24 05:41 Dose: 50 mg Quetiapine Fumarate (Quetiapine Fumarate 300 Mg Tablet) 300 mg PO BEDTIME SALLY Last Admin: 05/20/24 21:34 Dose: 300 mg Sodium Biphosphate/Sodium Phosphate (Sodium Phosphate,[place]-Dibasic 133 Ml Enema) 133 ml [place] ONCE PRN PRN Reason: severe constipation Last Admin: 05/13/24 18:19 Dose: 133 ml Trazodone HCl (Trazodone Hcl 50 Mg Tablet) 50 mg PO BEDTIME MRX1 PRN PRN Reason: Insomnia Last Admin: 05/14/24 20:12 Dose: 50 mg Allergies Allergies Allergy/AdvReac Type Severity Reaction Status Date / Time No Known Allergies Allergy Verified 05/04/24 15:04 Assessment & Plan Assessment & Plan (1) Bipolar 1 disorder: Status: Acute Code(s): F31.9 - Bipolar disorder, unspecified (2) Dementia: Status: Acute Code(s): F03.90 - Unspecified dementia, unspecified severity, without behavioral disturbance, psychotic disturbance, mood disturbance, and anxiety Plan The patient is an elderly [place] female, bilingual, with a past history of bipolar disorder and a past history of catatonia with several admissions into the hospital, recently admitted twice in the last 60 days for a presentation of selena. Currently now she has manic symptoms. Plan 1. Continue Seroquel 100 p.o. q.a.m. and 300 mg p.o. q.h.s., also with PRNs Seroquel 50 as needed. 2. Increase Depakote up to 250 mg p.o. b.i.d.. On May 10 we increased up to Depakote 200 p.o. t.i.d.. On May 11 we increased Depakote up to 500 mg p.o. b.i.d.. We will have a Depakote level next week. 05/17: calm, cooperative, pleasant. VPA level 50. 3. Lowered to Lamictal up to 50 mg p.o. daily. On May 10 we lowered Lamictal to 25 p.o. daily. On May 11 we discontinue Lamictal 4. Continue with medical workout. 5. 15 minute checks. 6. On May 18, we discussed at length with her daughter Love about treatment options and we are going to increase Depakote ER up to 1500 mg and recheck next Tuesday. 7. Seroquel was lowered up to 300 mg p.o. q.h.s. due to over-sedation a few days ago. We are going to keep it on the same dose so far, she remains manic. 8. Depakote will be rechecked on May 22 with comprehensive metabolic panel. Reason for continued inpatient stay Substantial Risk for: inability to function, rapid decompensation and med/psych decompensation Time Spent With Patient Time: Total time managing care of this patient today __20__ minutes.
[2024-05-21 20:00] VITALS: BP 146/70; PULSE 74; RESP 16; TEMP 36.6; O2SAT 100
[2024-05-21] MEDS: Divalproex Sodium ER 500 MG TAB.ER.24H 1500 MG PO (21:04)
[2024-05-21] MEDS: Benztropine Mesylate 0.5 MG TABLET PO (21:05)
[2024-05-21] MEDS: QUEtiapine Fumarate 300 MG TABLET PO (21:05)
[2024-05-22 08:00] VITALS: BP 133/67; PULSE 72; RESP 16; TEMP 36.6; O2SAT 98
[2024-05-22 08:25] LABS: Alanine Aminotransferase 9 U/L (0-31); Albumin Level 4.1 g/dL (3.5-5.0); Alkaline Phosphatase 89 U/L (39-117); Anion Gap 13 (12-20); Aspartate Amino Transferase 17 U/L (5-31); Bilirubin Total 0.5 mg/dL (0.0-1.0); Blood Urea Nitrogen 31 mg/dL (9-16); Calcium 9.5 mg/dL (8.4-10.2); Carbon Dioxide 29 mmol/L (22-29); Chloride 105 mmol/L (96-108); Estimated Glomerular Filt Rate 48; Glucose Fasting 81 mg/dL (60-99); Potassium 3.9 mmol/L (3.3-5.1); Sodium 143 mmol/L (135-145); Total Protein 7.1 g/dL (6.5-8.0)
[2024-05-22 08:39] LABS: Valproate 142.8 mcg/mL (50.0-100.0)
[2024-05-22] MEDS: Ondansetron ODT 4 MG TAB.RAPDIS 8 MG TRANSLINGU (11:11)
--- NOTE | 2024-05-22 13:36 | P.PNPSI_ITS ---
Subjective Subjective Date of Service: 05/22/24 Reason For Visit: Psychosis Subjective Notes: Conditional Voluntary Healthcare Proxy: Yes Interim History: The nursing staff reported the patient remains confused labile irritable, the occupational therapist reported that she is demanding and rude with peers not attending to groups. Today in the morning she was vomiting, we repeated that Depakote any was on over 140. Today we discussed with the patient and the patient's daughter and we agreed to start Abilify tomorrow at 5 mg keep Seroquel at a lower dose 200 and lowered the Depakote to 1250. Floyd p.r.n. Mental Status Exam Mental Status Exam Patient Appearance: Appropriate Patient Orientation: Person and Situation Level of Consciousness: Awake and Appropriate Patient Behavior: Guarded and Passive Mood Description: Withdrawn Affect Description: Constricted Patient Cognition Impaired: Yes Ability to Follow Directions: Good Speech Pattern: Clear Hallucinations: None Delusions: Grandiose and Ideas of Reference Thought Process: Distracted and Slowed Thinking Thought Content: positive for [place] and positive for Poverty of Content Judgement: Poor Diagnostics Vital Signs (24Hr): Vital Signs - 24 hr 05/21/24 20:00 05/22/24 08:00 Temperature 98 F 97.9 F Pulse Rate 74 72 Respiratory Rate 16 16 Blood Pressure 146/70 H 133/67 Pulse Oximetry 100 98 Oxygen Delivery Method Room Air Room Air BMI result Body Mass Index 24.3 Labs 05/04/24 15:03 05/22/24 08:03 Labs: Laboratory Results - last 48 hr 05/21/24 05/22/24 08:09 08:03 Sodium 143 Potassium 3.9 Chloride 105 Carbon Dioxide 29 Anion Gap 13 BUN 31 H Creatinine 1.11 Estim Creat Clear Calc 36.0 Estimated GFR 48 Fasting Glucose 81 Calcium 9.5 Total Bilirubin 0.5 AST 17 ALT 9 Alkaline Phosphatase 89 Total Protein 7.1 Albumin 4.1 Valproic Acid 142.5 H* 142.8 H* Imaging Radiology Impressions: ITS Impressions Head CT 05/16/24 14:30 IMPRESSION: There are no acute bleeds or territorial infarcts. No masses are demonstrated. Brain parenchymal attenuation is unremarkable. Medications Medications Current Medications Acetaminophen (Acetaminophen 325 Mg Tablet) 650 mg PO Q6H PRN PRN Reason: Headache/Pain Mild Scale (1-3) Last Admin: 05/18/24 20:51 Dose: 650 mg Al Hydroxide/Mg Hydroxide (Magnesium Hydrox/Alum Hydrox 30 Ml Oral.Susp) 30 ml PO Q6H PRN PRN Reason: Heartburn/Nausea Aripiprazole (Aripiprazole 5 Mg Tablet) 5 mg PO DAILY [facility] Benztropine Mesylate (Benztropine Mesylate 0.5 Mg Tablet) 0.5 mg PO BEDTIME [facility] Last Admin: 05/21/24 21:05 Dose: 0.5 mg Bisacodyl (Bisacodyl 10 Mg Supp.Rect) 10 mg [place] DAILY PRN PRN Reason: Constipation Divalproex Sodium (Divalproex Sodium Er 250 Mg Tab.Er.24h) 1,250 mg PO BEDTIME [facility] Docusate Sodium (Docusate Sodium 100 Mg Capsule) 200 mg PO BID [facility] Last Admin: 05/22/24 09:13 Dose: Not Given Hydroxyzine HCl (Hydroxyzine Hcl 25 Mg Tablet) 25 mg PO Q6H PRN PRN Reason: Anxiety Last Admin: 05/18/24 20:47 Dose: 25 mg Lisinopril (Lisinopril 2.5 Mg Tablet) 2.5 mg PO DAILY [facility]; Protocol Last Admin: 05/22/24 09:13 Dose: Not Given Magnesium Hydroxide (Milk Of Magnesia 30 Ml Oral.Susp) 30 ml PO DAILY PRN PRN Reason: Constipation Last Admin: 05/11/24 08:29 Dose: 30 ml Ondansetron HCl (Ondansetron Odt 4 Mg Tab.Rapdis) 8 mg TRANSLINGU Q8H PRN PRN Reason: Nausea and Vomiting Last Admin: 05/22/24 11:11 Dose: 8 mg Polyethylene Glycol (Polyethylene Glycol 3350 17 Gm Powd.Pack) 17 gm PO DAILY PRN PRN Reason: constipation Last Admin: 05/15/24 17:41 Dose: 17 gm Quetiapine Fumarate (Quetiapine Fumarate 50 Mg Tablet) 50 mg PO BID PRN PRN Reason: Agitation Last Admin: 05/17/24 05:41 Dose: 50 mg Quetiapine Fumarate (Quetiapine Fumarate 200 Mg Tablet) 200 mg PO BEDTIME [facility] Sodium Biphosphate/Sodium Phosphate (Sodium Phosphate,[place]-Dibasic 133 Ml Enema) 133 ml ME ONCE PRN PRN Reason: severe constipation Last Admin: 05/13/24 18:19 Dose: 133 ml Trazodone HCl (Trazodone Hcl 50 Mg Tablet) 50 mg PO BEDTIME MRX1 PRN PRN Reason: Insomnia Last Admin: 05/14/24 20:12 Dose: 50 mg Allergies Allergies Allergy/AdvReac Type Severity Reaction Status Date / Time No Known Allergies Allergy Verified 05/04/24 15:04 Assessment & Plan Assessment & Plan (1) Bipolar 1 disorder: Status: Acute Code(s): F31.9 - Bipolar disorder, unspecified (2) Dementia: Status: Acute Code(s): F03.90 - Unspecified dementia, unspecified severity, without behavioral disturbance, psychotic disturbance, mood disturbance, and anxiety Plan The patient is an elderly Dutch female, bilingual, with a past history of bipolar disorder and a past history of catatonia with several admissions into the hospital, recently admitted twice in the last 60 days for a presentation of selena. Currently now she has manic symptoms. Plan 1. Continue Seroquel 100 p.o. q.a.m. and 300 mg p.o. q.h.s., also with PRNs Seroquel 50 as needed. 2. Increase Depakote up to 250 mg p.o. b.i.d.. On May 10 we increased up to Depakote 200 p.o. t.i.d.. On May 11 we increased Depakote up to 500 mg p.o. b.i.d.. We will have a Depakote level next week. 05/17: calm, cooperative, pleasant. VPA level 50. 3. Lowered to Lamictal up to 50 mg p.o. daily. On May 10 we lowered Lamictal to 25 p.o. daily. On May 11 we discontinue Lamictal 4. Continue with medical workout. 5. 15 minute checks. 6. On May 18, we discussed at length with her daughter Love about treatment options and we are going to increase Depakote ER up to 1500 mg and recheck next Tuesday. 7. Seroquel was lowered up to 300 mg p.o. q.h.s. due to over-sedation a few days ago. We are going to keep it on the same dose so far, she remains manic. 8. Depakote will be rechecked on May 22 with comprehensive metabolic panel. It came back over 140 and she has nausea and vomiting. We are lowering to 1250 tonight. 9. Start Abilify 5 mg p.o. q.a.m.. And lower Seroquel up to 200 mg p.o. q.h.s. for sleep Reason for continued inpatient stay Substantial Risk for: inability to function, rapid decompensation and med/psych decompensation Time Spent With Patient Time: Total time managing care of this patient today __20__ minutes.
[2024-05-22 20:00] VITALS: BP 156/70; PULSE 78; RESP 18; TEMP 36.4; O2SAT 97
[2024-05-22] MEDS: traZODone HCL 50 MG TABLET PO (21:01)
[2024-05-22] MEDS: Divalproex Sodium ER 250 MG TAB.ER.24H 1250 MG PO (21:02)
[2024-05-22] MEDS: QUEtiapine Fumarate 200 MG TABLET PO (21:02)
[2024-05-22] MEDS: Docusate Sodium 100 MG CAPSULE 200 MG PO (21:02)
[2024-05-22] MEDS: Benztropine Mesylate 0.5 MG TABLET PO (21:02)
[2024-05-23 08:08] VITALS: BP 119/65; PULSE 81; RESP 17; TEMP 36.6; O2SAT 98
[2024-05-23] MEDS: Docusate Sodium 100 MG CAPSULE 200 MG PO ×2 (08:09→20:42)
[2024-05-23] MEDS: lisinopriL 2.5 MG TABLET PO (08:09)
[2024-05-23] MEDS: ARIPiprazole 5 MG TABLET PO (08:09)
--- NOTE | 2024-05-23 14:47 | P.PNPSI_ITS ---
Subjective Subjective Date of Service: 05/23/24 Reason For Visit: Psychosis Subjective Notes: Conditional Voluntary Interim History: The nursing staff reported the patient had been labile, with poor boundaries with staff and peers. She slept 6 hours. Today in the morning she threw her chocolate on the floor. On interview the patient remains disengaged, still paranoid. We are continuing with the plan of starting Abilify and lowering Seroquel. Mental Status Exam Mental Status Exam Patient Appearance: Appropriate Patient Orientation: Person and Situation Level of Consciousness: Awake and Appropriate Patient Behavior: Guarded and Passive Mood Description: Withdrawn Affect Description: Constricted Patient Cognition Impaired: Yes Ability to Follow Directions: Good Speech Pattern: Clear Hallucinations: None Delusions: Paranoid Ideation and Ideas of Reference Thought Process: Distracted and Slowed Thinking Thought Content: positive for [place] and positive for Poverty of Content Judgement: Poor Diagnostics Vital Signs (24Hr): Vital Signs - 24 hr 05/22/24 20:00 05/23/24 08:08 Temperature 97.6 F 97.9 F Pulse Rate 78 81 Respiratory Rate 18 17 Blood Pressure 156/70 H 119/65 Pulse Oximetry 97 98 Oxygen Delivery Method Room Air Room Air BMI result Body Mass Index 24.3 Labs 05/04/24 15:03 05/22/24 08:03 Labs: Laboratory Results - last 48 hr 05/22/24 08:03 Sodium 143 Potassium 3.9 Chloride 105 Carbon Dioxide 29 Anion Gap 13 BUN 31 H Creatinine 1.11 Estim Creat Clear Calc 36.0 Estimated GFR 48 Fasting Glucose 81 Calcium 9.5 Total Bilirubin 0.5 AST 17 ALT 9 Alkaline Phosphatase 89 Total Protein 7.1 Albumin 4.1 Valproic Acid 142.8 H* Imaging Radiology Impressions: ITS Impressions Head CT 05/16/24 14:30 IMPRESSION: There are no acute bleeds or territorial infarcts. No masses are demonstrated. Brain parenchymal attenuation is unremarkable. Medications Medications Current Medications Acetaminophen (Acetaminophen 325 Mg Tablet) 650 mg PO Q6H PRN PRN Reason: Headache/Pain Mild Scale (1-3) Last Admin: 05/18/24 20:51 Dose: 650 mg Al Hydroxide/Mg Hydroxide (Magnesium Hydrox/Alum Hydrox 30 Ml Oral.Susp) 30 ml PO Q6H PRN PRN Reason: Heartburn/Nausea Aripiprazole (Aripiprazole 5 Mg Tablet) 5 mg PO DAILY [facility] Last Admin: 05/23/24 08:09 Dose: 5 mg Benztropine Mesylate (Benztropine Mesylate 0.5 Mg Tablet) 0.5 mg PO BEDTIME [facility] Last Admin: 05/22/24 21:02 Dose: 0.5 mg Bisacodyl (Bisacodyl 10 Mg Supp.Rect) 10 mg [place] DAILY PRN PRN Reason: Constipation Divalproex Sodium (Divalproex Sodium Er 250 Mg Tab.Er.24h) 1,250 mg PO BEDTIME [facility] Last Admin: 05/22/24 21:02 Dose: 1,250 mg Docusate Sodium (Docusate Sodium 100 Mg Capsule) 200 mg PO BID [facility] Last Admin: 05/23/24 08:09 Dose: 200 mg Hydroxyzine HCl (Hydroxyzine Hcl 25 Mg Tablet) 25 mg PO Q6H PRN PRN Reason: Anxiety Last Admin: 05/18/24 20:47 Dose: 25 mg Lisinopril (Lisinopril 2.5 Mg Tablet) 2.5 mg PO DAILY [facility]; Protocol Last Admin: 05/23/24 08:09 Dose: 2.5 mg Magnesium Hydroxide (Milk Of Magnesia 30 Ml Oral.Susp) 30 ml PO DAILY PRN PRN Reason: Constipation Last Admin: 05/11/24 08:29 Dose: 30 ml Ondansetron HCl (Ondansetron Odt 4 Mg Tab.Rapdis) 8 mg TRANSLINGU Q8H PRN PRN Reason: Nausea and Vomiting Last Admin: 05/22/24 11:11 Dose: 8 mg Polyethylene Glycol (Polyethylene Glycol 3350 17 Gm Powd.Pack) 17 gm PO DAILY PRN PRN Reason: constipation Last Admin: 05/15/24 17:41 Dose: 17 gm Quetiapine Fumarate (Quetiapine Fumarate 50 Mg Tablet) 50 mg PO BID PRN PRN Reason: Agitation Last Admin: 05/17/24 05:41 Dose: 50 mg Quetiapine Fumarate (Quetiapine Fumarate 200 Mg Tablet) 200 mg PO BEDTIME [facility] Last Admin: 05/22/24 21:02 Dose: 200 mg Sodium Biphosphate/Sodium Phosphate (Sodium Phosphate,[place]-Dibasic 133 Ml Enema) 133 ml [place] ONCE PRN PRN Reason: severe constipation Last Admin: 05/13/24 18:19 Dose: 133 ml Trazodone HCl (Trazodone Hcl 50 Mg Tablet) 50 mg PO BEDTIME MRX1 PRN PRN Reason: Insomnia Last Admin: 05/22/24 21:01 Dose: 50 mg Allergies Allergies Allergy/AdvReac Type Severity Reaction Status Date / Time No Known Allergies Allergy Verified 05/04/24 15:04 Assessment & Plan Assessment & Plan (1) Bipolar 1 disorder: Status: Acute Code(s): F31.9 - Bipolar disorder, unspecified (2) Dementia: Status: Acute Code(s): F03.90 - Unspecified dementia, unspecified severity, without behavioral disturbance, psychotic disturbance, mood disturbance, and anxiety Plan The patient is an elderly Trin[place] female, bilingual, with a past history of bipolar disorder and a past history of catatonia with several admissions into the hospital, recently admitted twice in the last 60 days for a presentation of selena. Currently now she has manic symptoms. Plan 1. Continue Seroquel 100 p.o. q.a.m. and 300 mg p.o. q.h.s., also with PRNs Seroquel 50 as needed. 2. Increase Depakote up to 250 mg p.o. b.i.d.. On May 10 we increased up to Depakote 200 p.o. t.i.d.. On May 11 we increased Depakote up to 500 mg p.o. b.i.d.. We will have a Depakote level next week. 05/17: calm, cooperative, pleasant. VPA level 50. 3. Lowered to Lamictal up to 50 mg p.o. daily. On May 10 we lowered Lamictal to 25 p.o. daily. On May 11 we discontinue Lamictal 4. Continue with medical workout. 5. 15 minute checks. 6. On May 18, we discussed at length with her daughter Love about treatment options and we are going to increase Depakote ER up to 1500 mg and recheck next Tuesday. 7. Seroquel was lowered up to 300 mg p.o. q.h.s. due to over-sedation a few days ago. We are going to keep it on the same dose so far, she remains manic. 8. Depakote will be rechecked on May 22 with comprehensive metabolic panel. It came back over 140 and she has nausea and vomiting. We are lowering to 1250 tonight. 9. Start Abilify 5 mg p.o. q.a.m.. And lower Seroquel up to 200 mg p.o. q.h.s. for sleep. Started on May 22 Reason for continued inpatient stay Substantial Risk for: inability to function, rapid decompensation and med/psych decompensation Time Spent With Patient Time: Total time managing care of this patient today __20__ minutes.
[2024-05-23 20:00] VITALS: BP 136/73; PULSE 77; RESP 18; TEMP 36.6; O2SAT 95
[2024-05-23] MEDS: QUEtiapine Fumarate 200 MG TABLET PO (20:42)
[2024-05-23] MEDS: Divalproex Sodium ER 250 MG TAB.ER.24H 1250 MG PO (20:42)
[2024-05-23] MEDS: Benztropine Mesylate 0.5 MG TABLET PO (20:42)
[2024-05-23] MEDS: traZODone HCL 50 MG TABLET PO (20:42)
[2024-05-23] MEDS: Ondansetron ODT 4 MG TAB.RAPDIS 8 MG TRANSLINGU (20:45)
[2024-05-24 07:00] VITALS: BMI 24.3
[2024-05-24 08:58] VITALS: BP 143/82; PULSE 78; RESP 14; TEMP 36.1; O2SAT 98
[2024-05-24] MEDS: ARIPiprazole 5 MG TABLET PO (09:01)
[2024-05-24] MEDS: Docusate Sodium 100 MG CAPSULE 200 MG PO ×2 (09:01→20:36)
[2024-05-24] MEDS: lisinopriL 2.5 MG TABLET PO (09:02)
--- NOTE | 2024-05-24 11:24 | HO.PSYCHPN ---
Subjective Subjective Date of Service: 05/24/24 Reason For Visit: Psychosis Subjective Notes: Conditional Voluntary Interim History: Pt slept through the night. She reports she does not know why she is here, does not think she needs to be in the hospital and asking to go home. she is eating well. No overt delusions. calmer. No SI/HI will recheck depakote close to bedtime dose and check ammonia. she reports some shaking of lower legs- not visible on exam. BP- stable, no ortho. Diagnostics Vital Signs (24Hr): Vital Signs - 24 hr 05/23/24 20:00 05/24/24 08:58 Temperature 97.8 F 97 F Pulse Rate 77 78 Respiratory Rate 18 14 Blood Pressure 136/73 143/82 H Pulse Oximetry 95 98 Oxygen Delivery Method Room Air Room Air BMI result Body Mass Index 24.3 Labs 05/04/24 15:03 05/22/24 08:03 Imaging Radiology Impressions: ITS Impressions Head CT 05/16/24 14:30 IMPRESSION: There are no acute bleeds or territorial infarcts. No masses are demonstrated. Brain parenchymal attenuation is unremarkable. Medications Medications Current Medications Acetaminophen (Acetaminophen 325 Mg Tablet) 650 mg PO Q6H PRN PRN Reason: Headache/Pain Mild Scale (1-3) Last Admin: 05/18/24 20:51 Dose: 650 mg Al Hydroxide/Mg Hydroxide (Magnesium Hydrox/Alum Hydrox 30 Ml Oral.Susp) 30 ml PO Q6H PRN PRN Reason: Heartburn/Nausea Aripiprazole (Aripiprazole 5 Mg Tablet) 5 mg PO DAILY [facility] Last Admin: 05/24/24 09:01 Dose: 5 mg Benztropine Mesylate (Benztropine Mesylate 0.5 Mg Tablet) 0.5 mg PO BEDTIME [facility] Last Admin: 05/23/24 20:42 Dose: 0.5 mg Bisacodyl (Bisacodyl 10 Mg Supp.Rect) 10 mg [place] DAILY PRN PRN Reason: Constipation Divalproex Sodium (Divalproex Sodium Er 250 Mg Tab.Er.24h) 1,250 mg PO BEDTIME [facility] Last Admin: 05/23/24 20:42 Dose: 1,250 mg Docusate Sodium (Docusate Sodium 100 Mg Capsule) 200 mg PO BID [facility] Last Admin: 05/24/24 09:01 Dose: 200 mg Hydroxyzine HCl (Hydroxyzine Hcl 25 Mg Tablet) 25 mg PO Q6H PRN PRN Reason: Anxiety Last Admin: 05/18/24 20:47 Dose: 25 mg Lisinopril (Lisinopril 2.5 Mg Tablet) 2.5 mg PO DAILY [facility]; Protocol Last Admin: 05/24/24 09:02 Dose: 2.5 mg Magnesium Hydroxide (Milk Of Magnesia 30 Ml Oral.Susp) 30 ml PO DAILY PRN PRN Reason: Constipation Last Admin: 05/11/24 08:29 Dose: 30 ml Ondansetron HCl (Ondansetron Odt 4 Mg Tab.Rapdis) 8 mg TRANSLINGU Q8H PRN PRN Reason: Nausea and Vomiting Last Admin: 05/23/24 20:45 Dose: 8 mg Polyethylene Glycol (Polyethylene Glycol 3350 17 Gm Powd.Pack) 17 gm PO DAILY PRN PRN Reason: constipation Last Admin: 05/15/24 17:41 Dose: 17 gm Quetiapine Fumarate (Quetiapine Fumarate 50 Mg Tablet) 50 mg PO BID PRN PRN Reason: Agitation Last Admin: 05/17/24 05:41 Dose: 50 mg Quetiapine Fumarate (Quetiapine Fumarate 200 Mg Tablet) 200 mg PO BEDTIME [facility] Last Admin: 05/23/24 20:42 Dose: 200 mg Sodium Biphosphate/Sodium Phosphate (Sodium Phosphate,[place]-Dibasic 133 Ml Enema) 133 ml [place] ONCE PRN PRN Reason: severe constipation Last Admin: 05/13/24 18:19 Dose: 133 ml Trazodone HCl (Trazodone Hcl 50 Mg Tablet) 50 mg PO BEDTIME MRX1 PRN PRN Reason: Insomnia Last Admin: 05/23/24 20:42 Dose: 50 mg Allergies Allergies Allergy/AdvReac Type Severity Reaction Status Date / Time No Known Allergies Allergy Verified 05/04/24 15:04 Assessment & Plan Assessment & Plan (1) Bipolar 1 disorder: Status: Acute Code(s): F31.9 - Bipolar disorder, unspecified (2) Dementia: Status: Acute Code(s): F03.90 - Unspecified dementia, unspecified severity, without behavioral disturbance, psychotic disturbance, mood disturbance, and anxiety Plan The patient is an elderly [place]oc[place] female, bilingual, with a past history of bipolar disorder and a past history of catatonia with several admissions into the hospital, recently admitted twice in the last 60 days for a presentation of selena. Currently now she has manic symptoms. Plan 1. Continue Seroquel 100 p.o. q.a.m. and 300 mg p.o. q.h.s., also with PRNs Seroquel 50 as needed. 2. Increase Depakote up to 250 mg p.o. b.i.d.. On May 10 we increased up to Depakote 200 p.o. t.i.d.. On May 11 we increased Depakote up to 500 mg p.o. b.i.d.. We will have a Depakote level next week. 05/17: calm, cooperative, pleasant. VPA level 50. 3. Lowered to Lamictal up to 50 mg p.o. daily. On May 10 we lowered Lamictal to 25 p.o. daily. On May 11 we discontinue Lamictal 4. Continue with medical workout. 5. 15 minute checks. 6. On May 18, we discussed at length with her daughter Love about treatment options and we are going to increase Depakote ER up to 1500 mg and recheck next Tuesday. 7. Seroquel was lowered up to 300 mg p.o. q.h.s. due to over-sedation a few days ago. We are going to keep it on the same dose so far, she remains manic. 8. Depakote will be rechecked on May 22 with comprehensive metabolic panel. It came back over 140 and she has nausea and vomiting. We are lowering to 1250 tonight. 9. Start Abilify 5 mg p.o. q.a.m.. And lower Seroquel up to 200 mg p.o. q.h.s. for sleep. Started on May 2205/24 recheck depakote close to bedtime dose as it has been supratherapeutic. will check ammonia as well. no overt signs of toxicity including ataxic gait, or myoclonus nor delirium. Reason for continued inpatient stay Substantial Risk for: inability to function Time Spent With Patient Time: Total time managing care of this patient today ____ minutes.
[2024-05-24 18:20] LABS: Ammonia 20 umol/L (13-55)
[2024-05-24 18:33] LABS: Valproate 113.4 mcg/mL (50.0-100.0)
--- NOTE | 2024-05-24 18:49 | PC.NURSE ---
Critical Valproic Acid level reported to Brittanie Preston GATE CLERK 113.4 decreased from 142.8 on 05/22/24. Ammonia also better 20 from 25. Will decrease Depakote to 1000mg PO at HS.
[2024-05-24 20:00] VITALS: BP 119/79; PULSE 84; RESP 18; TEMP 36.6; O2SAT 97
[2024-05-24] MEDS: Divalproex Sodium ER 500 MG TAB.ER.24H 1000 MG PO (20:36)
[2024-05-24] MEDS: QUEtiapine Fumarate 200 MG TABLET PO (20:36)
[2024-05-24] MEDS: traZODone HCL 50 MG TABLET PO (20:36)
[2024-05-24] MEDS: Benztropine Mesylate 0.5 MG TABLET PO (20:36)
[2024-05-24] MEDS: Ondansetron ODT 4 MG TAB.RAPDIS 8 MG TRANSLINGU (20:36)
[2024-05-25 08:13] VITALS: BP 109/80; PULSE 73; RESP 18; TEMP 36.2; O2SAT 97
--- NOTE | 2024-05-25 08:54 | PC.NURSE ---
Patient refused all medication this morning, asked several times and refused.
[2024-05-25 09:47] VITALS: BP 124/60; PULSE 80
[2024-05-25] MEDS: ARIPiprazole 5 MG TABLET 10 MG PO (09:57)
[2024-05-25] MEDS: Milk of Magnesia 30 ML ORAL.SUSP PO (09:57)
[2024-05-25] MEDS: lisinopriL 2.5 MG TABLET PO (09:58)
[2024-05-25] MEDS: Docusate Sodium 100 MG CAPSULE 200 MG PO ×2 (09:58→22:31)
--- NOTE | 2024-05-25 13:59 | P.PNPSI_ITS ---
Subjective Subjective Date of Service: 05/25/24 Reason For Visit: Psychosis Subjective Notes: Conditional Voluntary Interim History: The nursing staff reported the patient has been taunting peers, her Depakote level was slightly lower to 113 but no dizziness. She had been eating well. The social sciences lecturer reported that working for placement with the family. On interview the patient remains being dysphoric, we are increasing Abilify up to 10 mg p.o. daily as per the plan. Mental Status Exam Mental Status Exam Patient Appearance: Appropriate Patient Orientation: Person and Situation Level of Consciousness: Awake and Appropriate Patient Behavior: Guarded and Passive Mood Description: Withdrawn Affect Description: Constricted Patient Cognition Impaired: Yes Ability to Follow Directions: Good Speech Pattern: Clear Hallucinations: None Delusions: Paranoid Ideation and Ideas of Reference Thought Process: Distracted and Slowed Thinking Thought Content: positive for [place] and positive for Poverty of Content Judgement: Fair Diagnostics Vital Signs (24Hr): Vital Signs - 24 hr 05/24/24 20:00 05/25/24 08:13 05/25/24 09:47 Temperature 97.8 F 97.1 F Pulse Rate 84 73 80 Respiratory Rate 18 18 Blood Pressure 119/79 109/80 124/60 Pulse Oximetry 97 97 Oxygen Delivery Method Room Air Room Air BMI result Body Mass Index 24.3 Labs 05/04/24 15:03 05/22/24 08:03 Labs: Laboratory Results - last 48 hr 05/24/24 18:05 Ammonia 20 Valproic Acid 113.4 H* Imaging Radiology Impressions: ITS Impressions Head CT 05/16/24 14:30 IMPRESSION: There are no acute bleeds or territorial infarcts. No masses are demonstrated. Brain parenchymal attenuation is unremarkable. Medications Medications Current Medications Acetaminophen (Acetaminophen 325 Mg Tablet) 650 mg PO Q6H PRN PRN Reason: Headache/Pain Mild Scale (1-3) Last Admin: 05/18/24 20:51 Dose: 650 mg Al Hydroxide/Mg Hydroxide (Magnesium Hydrox/Alum Hydrox 30 Ml Oral.Susp) 30 ml PO Q6H PRN PRN Reason: Heartburn/Nausea Aripiprazole (Aripiprazole 10 Mg Tablet) 10 mg PO DAILY [facility] Benztropine Mesylate (Benztropine Mesylate 0.5 Mg Tablet) 0.5 mg PO BEDTIME [facility] Last Admin: 05/24/24 20:36 Dose: 0.5 mg Bisacodyl (Bisacodyl 10 Mg Supp.Rect) 10 mg [place] DAILY PRN PRN Reason: Constipation Divalproex Sodium (Divalproex Sodium Er 500 Mg Tab.Er.24h) 1,000 mg PO BEDTIME [facility] Last Admin: 05/24/24 20:36 Dose: 1,000 mg Docusate Sodium (Docusate Sodium 100 Mg Capsule) 200 mg PO BID [facility] Last Admin: 05/25/24 09:58 Dose: 200 mg Hydroxyzine HCl (Hydroxyzine Hcl 25 Mg Tablet) 25 mg PO Q6H PRN PRN Reason: Anxiety Last Admin: 05/18/24 20:47 Dose: 25 mg Lisinopril (Lisinopril 2.5 Mg Tablet) 2.5 mg PO DAILY [facility]; Protocol Last Admin: 05/25/24 09:58 Dose: 2.5 mg Magnesium Hydroxide (Milk Of Magnesia 30 Ml Oral.Susp) 30 ml PO DAILY PRN PRN Reason: Constipation Last Admin: 05/25/24 09:57 Dose: 30 ml Ondansetron HCl (Ondansetron Odt 4 Mg Tab.Rapdis) 8 mg TRANSLINGU Q8H PRN PRN Reason: Nausea and Vomiting Last Admin: 05/24/24 20:36 Dose: 8 mg Polyethylene Glycol (Polyethylene Glycol 3350 17 Gm Powd.Pack) 17 gm PO DAILY PRN PRN Reason: constipation Last Admin: 05/15/24 17:41 Dose: 17 gm Quetiapine Fumarate (Quetiapine Fumarate 50 Mg Tablet) 50 mg PO BID PRN PRN Reason: Agitation Last Admin: 05/17/24 05:41 Dose: 50 mg Quetiapine Fumarate (Quetiapine Fumarate 200 Mg Tablet) 200 mg PO BEDTIME [facility] Last Admin: 05/24/24 20:36 Dose: 200 mg Sodium Biphosphate/Sodium Phosphate (Sodium Phosphate,[place]-Dibasic 133 Ml Enema) 133 ml [place] ONCE PRN PRN Reason: severe constipation Last Admin: 05/13/24 18:19 Dose: 133 ml Trazodone HCl (Trazodone Hcl 50 Mg Tablet) 50 mg PO BEDTIME MRX1 PRN PRN Reason: Insomnia Last Admin: 05/24/24 20:36 Dose: 50 mg Allergies Allergies Allergy/AdvReac Type Severity Reaction Status Date / Time No Known Allergies Allergy Verified 05/04/24 15:04 Assessment & Plan Assessment & Plan (1) Bipolar 1 disorder: Status: Acute Code(s): F31.9 - Bipolar disorder, unspecified (2) Dementia: Status: Acute Code(s): F03.90 - Unspecified dementia, unspecified severity, without behavioral disturbance, psychotic disturbance, mood disturbance, and anxiety Plan The patient is an elderly German female, bilingual, with a past history of bipolar disorder and a past history of catatonia with several admissions into the hospital, recently admitted twice in the last 60 days for a presentation of selena. Currently now she has manic symptoms. Plan 1. Continue Seroquel 100 p.o. q.a.m. and 300 mg p.o. q.h.s., also with PRNs Seroquel 50 as needed. 2. Increase Depakote up to 250 mg p.o. b.i.d.. On May 10 we increased up to Depakote 200 p.o. t.i.d.. On May 11 we increased Depakote up to 500 mg p.o. b.i.d.. We will have a Depakote level next week. 05/17: calm, cooperative, pleasant. VPA level 50. 3. Lowered to Lamictal up to 50 mg p.o. daily. On May 10 we lowered Lamictal to 25 p.o. daily. On May 11 we discontinue Lamictal 4. Continue with medical workout. 5. 15 minute checks. 6. On May 18, we discussed at length with her daughter Love about treatment options and we are going to increase Depakote ER up to 1500 mg and recheck next Tuesday. 7. Seroquel was lowered up to 300 mg p.o. q.h.s. due to over-sedation a few days ago. We are going to keep it on the same dose so far, she remains manic. 8. Depakote will be rechecked on May 22 with comprehensive metabolic panel. It came back over 140 and she has nausea and vomiting. We are lowering to 1250 tonight. 9. Start Abilify 5 mg p.o. q.a.m.. And lower Seroquel up to 200 mg p.o. q.h.s. for sleep. Started on May 22. On May 25 we increased Abilify to 10 mg daily. Reason for continued inpatient stay Substantial Risk for: inability to function, rapid decompensation and med/psych decompensation Time Spent With Patient Time: Total time managing care of this patient today __20__ minutes.
--- NOTE | 2024-05-25 18:29 | PC.NURSE ---
Patient's son visited today is concerned about what patient is and is not eating. He went through a sample menu and crossed out what patient doesn't like . She does not like cheese, hamburg, yogurt milk and soda. Menu placed in the front of her chart.
[2024-05-25 20:00] VITALS: RESP 18
[2024-05-25] MEDS: traZODone HCL 50 MG TABLET PO (22:26)
[2024-05-25] MEDS: Benztropine Mesylate 0.5 MG TABLET PO (22:27)
[2024-05-25] MEDS: QUEtiapine Fumarate 200 MG TABLET PO (22:31)
[2024-05-25] MEDS: Divalproex Sodium ER 500 MG TAB.ER.24H 1000 MG PO (22:31)
[2024-05-26 08:50] VITALS: BP 113/60; PULSE 66; RESP 16; TEMP 36.9; O2SAT 98
[2024-05-26] MEDS: lisinopriL 2.5 MG TABLET PO (08:51)
[2024-05-26] MEDS: Docusate Sodium 100 MG CAPSULE 200 MG PO ×2 (08:51→20:24)
[2024-05-26] MEDS: ARIPiprazole 10 MG TABLET PO (09:00)
[2024-05-26] MEDS: Ondansetron ODT 4 MG TAB.RAPDIS 8 MG TRANSLINGU (11:02)
--- NOTE | 2024-05-26 12:24 | HO.PSYCHPN ---
Subjective Subjective Date of Service: 05/26/24 Reason For Visit: Psychosis Subjective Notes: Conditional Voluntary Interim History: Patient was seen and discussed in rounds today. Records and plans were reviewed. Her Depakote level has decreased and she does not have any complaints or side effects right now. She has been, cooperative. Eating and sleeping adequately. No changes were Review of Systems Review of Systems Yes all other systems are reviewed and are negative Mental Status Exam Mental Status Exam Patient Appearance: Appropriate Patient Orientation: Person and Situation Level of Consciousness: Awake and Appropriate Patient Behavior: Guarded and Passive Mood Description: Withdrawn Affect Description: Constricted Patient Cognition Impaired: Yes Ability to Follow Directions: Good Speech Pattern: Clear Hallucinations: None Delusions: Paranoid Ideation and Ideas of Reference Thought Process: Distracted and Slowed Thinking Thought Content: positive for Pray and positive for Poverty of Content Judgement: Fair Diagnostics Vital Signs (24Hr): Vital Signs - 24 hr 05/25/24 20:00 05/26/24 08:50 Temperature 98.5 F Pulse Rate 66 Respiratory Rate 18 16 Blood Pressure 113/60 Pulse Oximetry 98 Oxygen Delivery Method Room Air BMI result Body Mass Index 24.3 Labs 05/04/24 15:03 05/22/24 08:03 Labs: Laboratory Results - last 48 hr 05/24/24 18:05 Ammonia 20 Valproic Acid 113.4 H* Imaging Radiology Impressions: ITS Impressions Head CT 05/16/24 14:30 IMPRESSION: There are no acute bleeds or territorial infarcts. No masses are demonstrated. Brain parenchymal attenuation is unremarkable. Medications Medications Current Medications Acetaminophen (Acetaminophen 325 Mg Tablet) 650 mg PO Q6H PRN PRN Reason: Headache/Pain Mild Scale (1-3) Last Admin: 05/18/24 20:51 Dose: 650 mg Al Hydroxide/Mg Hydroxide (Magnesium Hydrox/Alum Hydrox 30 Ml Oral.Susp) 30 ml PO Q6H PRN PRN Reason: Heartburn/Nausea Aripiprazole (Aripiprazole 10 Mg Tablet) 10 mg PO DAILY [facility] Last Admin: 05/26/24 09:00 Dose: 10 mg Benztropine Mesylate (Benztropine Mesylate 0.5 Mg Tablet) 0.5 mg PO BEDTIME [facility] Last Admin: 05/25/24 22:27 Dose: 0.5 mg Bisacodyl (Bisacodyl 10 Mg Supp.Rect) 10 mg MS DAILY PRN PRN Reason: Constipation Divalproex Sodium (Divalproex Sodium Er 500 Mg Tab.Er.24h) 1,000 mg PO BEDTIME [facility] Last Admin: 05/25/24 22:31 Dose: 1,000 mg Docusate Sodium (Docusate Sodium 100 Mg Capsule) 200 mg PO BID [facility] Last Admin: 05/26/24 08:51 Dose: 200 mg Hydroxyzine HCl (Hydroxyzine Hcl 25 Mg Tablet) 25 mg PO Q6H PRN PRN Reason: Anxiety Last Admin: 05/18/24 20:47 Dose: 25 mg Lisinopril (Lisinopril 2.5 Mg Tablet) 2.5 mg PO DAILY [facility]; Protocol Last Admin: 05/26/24 08:51 Dose: 2.5 mg Magnesium Hydroxide (Milk Of Magnesia 30 Ml Oral.Susp) 30 ml PO DAILY PRN PRN Reason: Constipation Last Admin: 05/25/24 09:57 Dose: 30 ml Ondansetron HCl (Ondansetron Odt 4 Mg Tab.Rapdis) 8 mg TRANSLINGU Q8H PRN PRN Reason: Nausea and Vomiting Last Admin: 05/26/24 11:02 Dose: 8 mg Polyethylene Glycol (Polyethylene Glycol 3350 17 Gm Powd.Pack) 17 gm PO DAILY PRN PRN Reason: constipation Last Admin: 05/15/24 17:41 Dose: 17 gm Quetiapine Fumarate (Quetiapine Fumarate 50 Mg Tablet) 50 mg PO BID PRN PRN Reason: Agitation Last Admin: 05/17/24 05:41 Dose: 50 mg Quetiapine Fumarate (Quetiapine Fumarate 200 Mg Tablet) 200 mg PO BEDTIME [facility] Last Admin: 05/25/24 22:31 Dose: 200 mg Sodium Biphosphate/Sodium Phosphate (Sodium Phosphate,[place]-Dibasic 133 Ml Enema) 133 ml MS ONCE PRN PRN Reason: severe constipation Last Admin: 05/13/24 18:19 Dose: 133 ml Trazodone HCl (Trazodone Hcl 50 Mg Tablet) 50 mg PO BEDTIME MRX1 PRN PRN Reason: Insomnia Last Admin: 05/25/24 22:26 Dose: 50 mg Allergies Allergies Allergy/AdvReac Type Severity Reaction Status Date / Time No Known Allergies Allergy Verified 05/04/24 15:04 Assessment & Plan Assessment & Plan (1) Bipolar 1 disorder: Status: Acute Code(s): F31.9 - Bipolar disorder, unspecified (2) Dementia: Status: Acute Code(s): F03.90 - Unspecified dementia, unspecified severity, without behavioral disturbance, psychotic disturbance, mood disturbance, and anxiety Plan The patient is an elderly [place]ian female, bilingual, with a past history of bipolar disorder and a past history of catatonia with several admissions into the hospital, recently admitted twice in the last 60 days for a presentation of selena. Currently now she has manic symptoms. Plan 1. Continue Seroquel 100 p.o. q.a.m. and 300 mg p.o. q.h.s., also with PRNs Seroquel 50 as needed. 2. Increase Depakote up to 250 mg p.o. b.i.d.. On May 10 we increased up to Depakote 200 p.o. t.i.d.. On May 11 we increased Depakote up to 500 mg p.o. b.i.d.. We will have a Depakote level next week. 05/17: calm, cooperative, pleasant. VPA level 50. 3. Lowered to Lamictal up to 50 mg p.o. daily. On May 10 we lowered Lamictal to 25 p.o. daily. On May 11 we discontinue Lamictal 4. Continue with medical workout. 5. 15 minute checks. 6. On May 18, we discussed at length with her daughter Love about treatment options and we are going to increase Depakote ER up to 1500 mg and recheck next Tuesday. 7. Seroquel was lowered up to 300 mg p.o. q.h.s. due to over-sedation a few days ago. We are going to keep it on the same dose so far, she remains manic. 8. Depakote will be rechecked on May 22 with comprehensive metabolic panel. It came back over 140 and she has nausea and vomiting. We are lowering to 1250 tonight. 9. Start Abilify 5 mg p.o. q.a.m.. And lower Seroquel up to 200 mg p.o. q.h.s. for sleep. Started on May 22. On May 25 we increased Abilify to 10 mg daily. Reason for continued inpatient stay Substantial Risk for: med/psych decompensation Time Spent With Patient Time: Total time managing care of this patient today ____ minutes.
[2024-05-26 20:00] VITALS: BP 129/65; PULSE 77; RESP 16; TEMP 36.2; O2SAT 98
[2024-05-26] MEDS: Benztropine Mesylate 0.5 MG TABLET PO (20:24)
[2024-05-26] MEDS: Divalproex Sodium ER 500 MG TAB.ER.24H 1000 MG PO (20:24)
[2024-05-26] MEDS: QUEtiapine Fumarate 200 MG TABLET PO (20:24)
[2024-05-27 08:03] VITALS: BP 131/82; PULSE 80; RESP 18; TEMP 36.2; O2SAT 97
[2024-05-27] MEDS: ARIPiprazole 10 MG TABLET PO (08:47)
[2024-05-27] MEDS: Docusate Sodium 100 MG CAPSULE 200 MG PO ×2 (08:47→23:01)
[2024-05-27 08:48] VITALS: BP 131/82
[2024-05-27] MEDS: lisinopriL 2.5 MG TABLET PO (08:48)
--- NOTE | 2024-05-27 09:52 | P.PNPSI_ITS ---
Subjective Subjective Date of Service: 05/27/24 Reason For Visit: Psychosis Subjective Notes: Conditional Voluntary Interim History: Patient was seen and discussed in rounds today. Records and plans were reviewed. I will order a Depakote level because she continues to have some complaints of dizziness. She has been, cooperative. Eating and sleeping adequately. No changes were Review of Systems Review of Systems Dizziness Yes all other systems are reviewed and are negative Mental Status Exam Mental Status Exam Patient Appearance: Appropriate Patient Orientation: Person and Situation Level of Consciousness: Awake and Appropriate Patient Behavior: Guarded and Passive Mood Description: Withdrawn Affect Description: Constricted Patient Cognition Impaired: Yes Ability to Follow Directions: Good Speech Pattern: Clear Hallucinations: None Delusions: Paranoid Ideation and Ideas of Reference Thought Process: Distracted and Slowed Thinking Thought Content: positive for [place] and positive for Poverty of Content Judgement: Fair Diagnostics Vital Signs (24Hr): Vital Signs - 24 hr 05/26/24 20:00 05/27/24 08:03 05/27/24 08:48 Temperature 97.2 F 97.2 F Pulse Rate 77 80 Respiratory Rate 16 18 Blood Pressure 129/65 131/82 131/82 Pulse Oximetry 98 97 Oxygen Delivery Method Room Air Room Air BMI result Body Mass Index 24.3 Labs 05/04/24 15:03 05/22/24 08:03 Imaging Radiology Impressions: [facility] Impressions Head CT 05/16/24 14:30 IMPRESSION: There are no acute bleeds or territorial infarcts. No masses are demonstrated. Brain parenchymal attenuation is unremarkable. Medications Medications Current Medications Acetaminophen (Acetaminophen 325 Mg Tablet) 650 mg PO Q6H PRN PRN Reason: Headache/Pain Mild Scale (1-3) Last Admin: 05/18/24 20:51 Dose: 650 mg Al Hydroxide/Mg Hydroxide (Magnesium Hydrox/Alum Hydrox 30 Ml Oral.Susp) 30 ml PO Q6H PRN PRN Reason: Heartburn/Nausea Aripiprazole (Aripiprazole 10 Mg Tablet) 10 mg PO DAILY [facility] Last Admin: 05/27/24 08:47 Dose: 10 mg Benztropine Mesylate (Benztropine Mesylate 0.5 Mg Tablet) 0.5 mg PO BEDTIME [facility] Last Admin: 05/26/24 20:24 Dose: 0.5 mg Bisacodyl (Bisacodyl 10 Mg Supp.Rect) 10 mg ME DAILY PRN PRN Reason: Constipation Divalproex Sodium (Divalproex Sodium Er 500 Mg Tab.Er.24h) 1,000 mg PO BEDTIME [facility] Last Admin: 05/26/24 20:24 Dose: 1,000 mg Docusate Sodium (Docusate Sodium 100 Mg Capsule) 200 mg PO BID [facility] Last Admin: 05/27/24 08:47 Dose: 200 mg Hydroxyzine HCl (Hydroxyzine Hcl 25 Mg Tablet) 25 mg PO Q6H PRN PRN Reason: Anxiety Last Admin: 05/18/24 20:47 Dose: 25 mg Lisinopril (Lisinopril 2.5 Mg Tablet) 2.5 mg PO DAILY [facility]; Protocol Last Admin: 05/27/24 08:48 Dose: 2.5 mg Magnesium Hydroxide (Milk Of Magnesia 30 Ml Oral.Susp) 30 ml PO DAILY PRN PRN Reason: Constipation Last Admin: 05/25/24 09:57 Dose: 30 ml Ondansetron HCl (Ondansetron Odt 4 Mg Tab.Rapdis) 8 mg TRANSLINGU Q8H PRN PRN Reason: Nausea and Vomiting Last Admin: 05/26/24 11:02 Dose: 8 mg Polyethylene Glycol (Polyethylene Glycol 3350 17 Gm Powd.Pack) 17 gm PO DAILY PRN PRN Reason: constipation Last Admin: 05/15/24 17:41 Dose: 17 gm Quetiapine Fumarate (Quetiapine Fumarate 50 Mg Tablet) 50 mg PO BID PRN PRN Reason: Agitation Last Admin: 05/17/24 05:41 Dose: 50 mg Quetiapine Fumarate (Quetiapine Fumarate 200 Mg Tablet) 200 mg PO BEDTIME [facility] Last Admin: 05/26/24 20:24 Dose: 200 mg Sodium Biphosphate/Sodium Phosphate (Sodium Phosphate,[place]-Dibasic 133 Ml Enema) 133 ml ME ONCE PRN PRN Reason: severe constipation Last Admin: 05/13/24 18:19 Dose: 133 ml Trazodone HCl (Trazodone Hcl 50 Mg Tablet) 50 mg PO BEDTIME MRX1 PRN PRN Reason: Insomnia Last Admin: 05/25/24 22:26 Dose: 50 mg Allergies Allergies Allergy/AdvReac Type Severity Reaction Status Date / Time No Known Allergies Allergy Verified 05/04/24 15:04 Assessment & Plan Assessment & Plan (1) Bipolar 1 disorder: Status: Acute Code(s): F31.9 - Bipolar disorder, unspecified (2) Dementia: Status: Acute Code(s): F03.90 - Unspecified dementia, unspecified severity, without behavioral disturbance, psychotic disturbance, mood disturbance, and anxiety Plan The patient is an elderly Spanish female, bilingual, with a past history of bipolar disorder and a past history of catatonia with several admissions into the hospital, recently admitted twice in the last 60 days for a presentation of selena. Currently now she has manic symptoms. Plan 1. Continue Seroquel 100 p.o. q.a.m. and 300 mg p.o. q.h.s., also with PRNs Seroquel 50 as needed. 2. Increase Depakote up to 250 mg p.o. b.i.d.. On May 10 we increased up to Depakote 200 p.o. t.i.d.. On May 11 we increased Depakote up to 500 mg p.o. b.i.d.. We will have a Depakote level next week. 05/17: calm, cooperative, pleasant. VPA level 50. 3. Lowered to Lamictal up to 50 mg p.o. daily. On May 10 we lowered Lamictal to 25 p.o. daily. On May 11 we discontinue Lamictal 4. Continue with medical workout. 5. 15 minute checks. 6. On May 18, we discussed at length with her daughter Love about treatment options and we are going to increase Depakote ER up to 1500 mg and recheck next Tuesday. 7. Seroquel was lowered up to 300 mg p.o. q.h.s. due to over-sedation a few days ago. We are going to keep it on the same dose so far, she remains manic. 8. Depakote will be rechecked on May 22 with comprehensive metabolic panel. It came back over 140 and she has nausea and vomiting. We are lowering to 1250 tonight. 9. Start Abilify 5 mg p.o. q.a.m.. And lower Seroquel up to 200 mg p.o. q.h.s. for sleep. Started on May 22. On May 25 we increased Abilify to 10 mg daily. 05/27: Continue current regimen and plans. Depakote level ordered Reason for continued inpatient stay Substantial Risk for: med/psych decompensation Time Spent With Patient Time: Total time managing care of this patient today ____ minutes.
--- NOTE | 2024-05-27 10:34 | PC.NURSE ---
Ofelia is unable to remember last BM. She was given an enema last week by this web content writer but unable to recall if she had a BM. She is on Colace and accepted prune juice. Abdomen is soft, rounded and nontender. Dr. Le notified.
[2024-05-27 10:49] LABS: Valproate 116.9 mcg/mL (50.0-100.0)
--- NOTE | 2024-05-27 10:51 | PC.NURSE ---
Critical VPA level 116.[address] Le notified.
--- NOTE | 2024-05-27 11:53 | PC.NURSE ---
Offered milk of magnesia for constipation and Ofelia declined.
[2024-05-27 20:00] VITALS: BP 152/66; PULSE 82; RESP 18; TEMP 36.1; O2SAT 97
[2024-05-27] MEDS: Benztropine Mesylate 0.5 MG TABLET PO (23:01)
[2024-05-27] MEDS: traZODone HCL 50 MG TABLET PO (23:01)
[2024-05-27] MEDS: Divalproex Sodium ER 250 MG TAB.ER.24H 750 MG PO (23:01)
[2024-05-27] MEDS: QUEtiapine Fumarate 200 MG TABLET PO (23:01)
[2024-05-28 08:35] VITALS: BP 104/64; PULSE 80; RESP 16; TEMP 36.2; O2SAT 95
[2024-05-28] MEDS: Docusate Sodium 100 MG CAPSULE 200 MG PO ×2 (08:36→20:44)
[2024-05-28] MEDS: lisinopriL 2.5 MG TABLET PO (08:38)
[2024-05-28] MEDS: ARIPiprazole 10 MG TABLET PO (08:38)
--- NOTE | 2024-05-28 15:29 | HO.PSYCHPN ---
Subjective Subjective Date of Service: 05/28/24 Reason For Visit: Psychosis Subjective Notes: Conditional Voluntary Interim History: The nursing staff reported the patient had been irritable intrusive disruptive with peers. Exit seeking. On interview the patient denies new symptoms she looks pleasantly confused. We are going to increase Abilify up to 15 mg p.o. q.h.s. starting tonight Mental Status Exam Mental Status Exam Patient Appearance: Appropriate Patient Orientation: Person and Situation Level of Consciousness: Awake and Appropriate Patient Behavior: Guarded and Passive Mood Description: Withdrawn Affect Description: Constricted Patient Cognition Impaired: Yes Ability to Follow Directions: Good Speech Pattern: Clear Hallucinations: None Delusions: Paranoid Ideation, Grandiose and Ideas of Reference Thought Process: Distracted and Slowed Thinking Thought Content: positive for [place] and positive for Poverty of Content Judgement: Poor Diagnostics Vital Signs (24Hr): Vital Signs - 24 hr 05/27/24 20:00 05/28/24 08:35 Temperature 97.0 F 97.1 F Pulse Rate 82 80 Respiratory Rate 18 16 Blood Pressure 152/66 H 104/64 Pulse Oximetry 97 95 Oxygen Delivery Method Room Air Room Air BMI result Body Mass Index 24.3 Labs 05/04/24 15:03 05/22/24 08:03 Labs: Laboratory Results - last 48 hr 05/27/24 10:04 Valproic Acid 116.9 H* Imaging Radiology Impressions: [facility] Impressions Head CT 05/16/24 14:30 IMPRESSION: There are no acute bleeds or territorial infarcts. No masses are demonstrated. Brain parenchymal attenuation is unremarkable. Medications Medications Current Medications Acetaminophen (Acetaminophen 325 Mg Tablet) 650 mg PO Q6H PRN PRN Reason: Headache/Pain Mild Scale (1-3) Last Admin: 05/18/24 20:51 Dose: 650 mg Al Hydroxide/Mg Hydroxide (Magnesium Hydrox/Alum Hydrox 30 Ml Oral.Susp) 30 ml PO Q6H PRN PRN Reason: Heartburn/Nausea Aripiprazole (Aripiprazole 15 Mg Tablet) 15 mg PO BEDTIME [facility] Benztropine Mesylate (Benztropine Mesylate 0.5 Mg Tablet) 0.5 mg PO BEDTIME [facility] Last Admin: 05/27/24 23:01 Dose: 0.5 mg Bisacodyl (Bisacodyl 10 Mg Supp.Rect) 10 mg SD DAILY PRN PRN Reason: Constipation Divalproex Sodium (Divalproex Sodium Er 250 Mg Tab.Er.24h) 750 mg PO BEDTIME [facility] Last Admin: 05/27/24 23:01 Dose: 750 mg Docusate Sodium (Docusate Sodium 100 Mg Capsule) 200 mg PO BID [facility] Last Admin: 05/28/24 08:36 Dose: 200 mg Hydroxyzine HCl (Hydroxyzine Hcl 25 Mg Tablet) 25 mg PO Q6H PRN PRN Reason: Anxiety Last Admin: 05/18/24 20:47 Dose: 25 mg Lisinopril (Lisinopril 2.5 Mg Tablet) 2.5 mg PO DAILY [facility]; Protocol Last Admin: 05/28/24 08:38 Dose: 2.5 mg Magnesium Hydroxide (Milk Of Magnesia 30 Ml Oral.Susp) 30 ml PO DAILY PRN PRN Reason: Constipation Last Admin: 05/25/24 09:57 Dose: 30 ml Ondansetron HCl (Ondansetron Odt 4 Mg Tab.Rapdis) 8 mg TRANSLINGU Q8H PRN PRN Reason: Nausea and Vomiting Last Admin: 05/26/24 11:02 Dose: 8 mg Polyethylene Glycol (Polyethylene Glycol 3350 17 Gm Powd.Pack) 17 gm PO DAILY PRN PRN Reason: constipation Last Admin: 05/15/24 17:41 Dose: 17 gm Quetiapine Fumarate (Quetiapine Fumarate 50 Mg Tablet) 50 mg PO BID PRN PRN Reason: Agitation Last Admin: 05/17/24 05:41 Dose: 50 mg Quetiapine Fumarate (Quetiapine Fumarate 200 Mg Tablet) 200 mg PO BEDTIME [facility] Last Admin: 05/27/24 23:01 Dose: 200 mg Sodium Biphosphate/Sodium Phosphate (Sodium Phosphate,[place]-Dibasic 133 Ml Enema) 133 ml SD ONCE PRN PRN Reason: severe constipation Last Admin: 05/13/24 18:19 Dose: 133 ml Trazodone HCl (Trazodone Hcl 50 Mg Tablet) 50 mg PO BEDTIME MRX1 PRN PRN Reason: Insomnia Last Admin: 05/27/24 23:01 Dose: 50 mg Allergies Allergies Allergy/AdvReac Type Severity Reaction Status Date / Time No Known Allergies Allergy Verified 05/04/24 15:04 Assessment & Plan Assessment & Plan (1) Bipolar 1 disorder: Status: Acute Code(s): F31.9 - Bipolar disorder, unspecified (2) Dementia: Status: Acute Code(s): F03.90 - Unspecified dementia, unspecified severity, without behavioral disturbance, psychotic disturbance, mood disturbance, and anxiety Plan The patient is an elderly [place] female, bilingual, with a past history of bipolar disorder and a past history of catatonia with several admissions into the hospital, recently admitted twice in the last 60 days for a presentation of selena. Currently now she has manic symptoms. Plan 1. Continue Seroquel 100 p.o. q.a.m. and 300 mg p.o. q.h.s., also with PRNs Seroquel 50 as needed. 2. Increase Depakote up to 250 mg p.o. b.i.d.. On May 10 we increased up to Depakote 200 p.o. t.i.d.. On May 11 we increased Depakote up to 500 mg p.o. b.i.d.. We will have a Depakote level next week. 05/17: calm, cooperative, pleasant. VPA level 50. 3. Lowered to Lamictal up to 50 mg p.o. daily. On May 10 we lowered Lamictal to 25 p.o. daily. On May 11 we discontinue Lamictal 4. Continue with medical workout. 5. 15 minute checks. 6. On May 18, we discussed at length with her daughter Love about treatment options and we are going to increase Depakote ER up to 1500 mg and recheck next Tuesday. 7. Seroquel was lowered up to 300 mg p.o. q.h.s. due to over-sedation a few days ago. We are going to keep it on the same dose so far, she remains manic. 8. Depakote will be rechecked on May 22 with comprehensive metabolic panel. It came back over 140 and she has nausea and vomiting. We are lowering to 1250 tonight. 9. Start Abilify 5 mg p.o. q.a.m.. And lower Seroquel up to 200 mg p.o. q.h.s. for sleep. Started on May 22. On May 25 we increased Abilify to 10 mg daily. On May 28 we increased Abilify to 15 mg p.o. q.h.s. Reason for continued inpatient stay Substantial Risk for: inability to function, rapid decompensation and med/psych decompensation Time Spent With Patient Time: Total time managing care of this patient today ___20_ minutes.
[2024-05-28 20:00] VITALS: RESP 18
[2024-05-28] MEDS: Divalproex Sodium ER 250 MG TAB.ER.24H 750 MG PO (20:44)
[2024-05-28] MEDS: Benztropine Mesylate 0.5 MG TABLET PO (20:44)
[2024-05-28] MEDS: traZODone HCL 50 MG TABLET PO (20:44)
[2024-05-28] MEDS: ARIPiprazole 15 MG TABLET PO (20:44)
[2024-05-28] MEDS: QUEtiapine Fumarate 200 MG TABLET PO (20:44)
[2024-05-29 08:30] VITALS: BP 122/68; PULSE 79; RESP 18; TEMP 36.2; O2SAT 97
[2024-05-29] MEDS: Docusate Sodium 100 MG CAPSULE 200 MG PO ×2 (08:53→20:48)
[2024-05-29] MEDS: lisinopriL 2.5 MG TABLET PO (08:53)
--- NOTE | 2024-05-29 14:08 | HO.PSYCHPN ---
Subjective Subjective Date of Service: 05/29/24 Reason For Visit: Psychosis Subjective Notes: Conditional Voluntary Interim History: The nursing staff reported the patient remains paranoid worried about her Depakote level room with peers disruptive in groups. On interview the patient denies new symptoms she is superficially pleasant. I interview him with her daughter and they were in agreement of the plan of using Depakote and Abilify. Mental Status Exam Mental Status Exam Patient Appearance: Appropriate Patient Orientation: Person and Situation Level of Consciousness: Awake and Appropriate Patient Behavior: Appropriate and Passive Mood Description: Withdrawn Affect Description: Constricted Patient Cognition Impaired: Yes Ability to Follow Directions: Fair Speech Pattern: Clear Hallucinations: None Delusions: Paranoid Ideation and Ideas of Reference Thought Process: Distracted and Slowed Thinking Thought Content: positive for [place] and positive for Poverty of Content Judgement: Poor Diagnostics Vital Signs (24Hr): Vital Signs - 24 hr 05/28/24 20:00 05/29/24 08:30 Temperature 97.1 F Pulse Rate 79 Respiratory Rate 18 18 Blood Pressure 122/68 Pulse Oximetry 97 Oxygen Delivery Method Room Air BMI result Body Mass Index 24.3 Labs 05/04/24 15:03 05/22/24 08:03 Imaging Radiology Impressions: ITS Impressions Head CT 05/16/24 14:30 IMPRESSION: There are no acute bleeds or territorial infarcts. No masses are demonstrated. Brain parenchymal attenuation is unremarkable. Medications Medications Current Medications Acetaminophen (Acetaminophen 325 Mg Tablet) 650 mg PO Q6H PRN PRN Reason: Headache/Pain Mild Scale (1-3) Last Admin: 05/18/24 20:51 Dose: 650 mg Al Hydroxide/Mg Hydroxide (Magnesium Hydrox/Alum Hydrox 30 Ml Oral.Susp) 30 ml PO Q6H PRN PRN Reason: Heartburn/Nausea Aripiprazole (Aripiprazole 15 Mg Tablet) 15 mg PO BEDTIME SALLY Last Admin: 05/28/24 20:44 Dose: 15 mg Benztropine Mesylate (Benztropine Mesylate 0.5 Mg Tablet) 0.5 mg PO BEDTIME SALLY Last Admin: 05/28/24 20:44 Dose: 0.5 mg Bisacodyl (Bisacodyl 10 Mg Supp.Rect) 10 mg [place] DAILY PRN PRN Reason: Constipation Divalproex Sodium (Divalproex Sodium Er 250 Mg Tab.Er.24h) 750 mg PO BEDTIME SALLY Last Admin: 05/28/24 20:44 Dose: 750 mg Docusate Sodium (Docusate Sodium 100 Mg Capsule) 200 mg PO BID [facility] Last Admin: 05/29/24 08:53 Dose: 200 mg Hydroxyzine HCl (Hydroxyzine Hcl 25 Mg Tablet) 25 mg PO Q6H PRN PRN Reason: Anxiety Last Admin: 05/18/24 20:47 Dose: 25 mg Lisinopril (Lisinopril 2.5 Mg Tablet) 2.5 mg PO DAILY [facility]; Protocol Last Admin: 05/29/24 08:53 Dose: 2.5 mg Magnesium Hydroxide (Milk Of Magnesia 30 Ml Oral.Susp) 30 ml PO DAILY PRN PRN Reason: Constipation Last Admin: 05/25/24 09:57 Dose: 30 ml Ondansetron HCl (Ondansetron Odt 4 Mg Tab.Rapdis) 8 mg TRANSLINGU Q8H PRN PRN Reason: Nausea and Vomiting Last Admin: 05/26/24 11:02 Dose: 8 mg Polyethylene Glycol (Polyethylene Glycol 3350 17 Gm Powd.Pack) 17 gm PO DAILY PRN PRN Reason: constipation Last Admin: 05/15/24 17:41 Dose: 17 gm Quetiapine Fumarate (Quetiapine Fumarate 50 Mg Tablet) 50 mg PO BID PRN PRN Reason: Agitation Last Admin: 05/17/24 05:41 Dose: 50 mg Quetiapine Fumarate (Quetiapine Fumarate 200 Mg Tablet) 200 mg PO BEDTIME SALLY Last Admin: 05/28/24 20:44 Dose: 200 mg Sodium Biphosphate/Sodium Phosphate (Sodium Phosphate,[place]-Dibasic 133 Ml Enema) 133 ml [place] ONCE PRN PRN Reason: severe constipation Last Admin: 05/13/24 18:19 Dose: 133 ml Trazodone HCl (Trazodone Hcl 50 Mg Tablet) 50 mg PO BEDTIME MRX1 PRN PRN Reason: Insomnia Last Admin: 05/28/24 20:44 Dose: 50 mg Allergies Allergies Allergy/AdvReac Type Severity Reaction Status Date / Time No Known Allergies Allergy Verified 05/04/24 15:04 Assessment & Plan Assessment & Plan (1) Bipolar 1 disorder: Status: Acute Code(s): F31.9 - Bipolar disorder, unspecified (2) Dementia: Status: Acute Code(s): F03.90 - Unspecified dementia, unspecified severity, without behavioral disturbance, psychotic disturbance, mood disturbance, and anxiety Plan The patient is an elderly Vietnamese female, bilingual, with a past history of bipolar disorder and a past history of catatonia with several admissions into the hospital, recently admitted twice in the last 60 days for a presentation of selena. Currently now she has manic symptoms. Plan 1. Continue Seroquel 100 p.o. q.a.m. and 300 mg p.o. q.h.s., also with PRNs Seroquel 50 as needed. 2. Increase Depakote up to 250 mg p.o. b.i.d.. On May 10 we increased up to Depakote 200 p.o. t.i.d.. On May 11 we increased Depakote up to 500 mg p.o. b.i.d.. We will have a Depakote level next week. 05/17: calm, cooperative, pleasant. VPA level 50. 3. Lowered to Lamictal up to 50 mg p.o. daily. On May 10 we lowered Lamictal to 25 p.o. daily. On May 11 we discontinue Lamictal 4. Continue with medical workout. 5. 15 minute checks. 6. On May 18, we discussed at length with her daughter Love about treatment options and we are going to increase Depakote ER up to 1500 mg and recheck next Tuesday. 7. Seroquel was lowered up to 300 mg p.o. q.h.s. due to over-sedation a few days ago. We are going to keep it on the same dose so far, she remains manic. 8. Depakote will be rechecked on May 22 with comprehensive metabolic panel. It came back over 140 and she has nausea and vomiting. We are lowering to 1250 tonight. 9. Start Abilify 5 mg p.o. q.a.m.. And lower Seroquel up to 200 mg p.o. q.h.s. for sleep. Started on May 22. On May 25 we increased Abilify to 10 mg daily. On May 28 we increased Abilify to 15 mg p.o. q.h.s. Reason for continued inpatient stay Substantial Risk for: inability to function, rapid decompensation and med/psych decompensation Time Spent With Patient Time: Total time managing care of this patient today __20__ minutes.
[2024-05-29 20:00] VITALS: BP 126/67; PULSE 82; RESP 16; TEMP 36.8; O2SAT 99
[2024-05-29] MEDS: Divalproex Sodium ER 250 MG TAB.ER.24H 750 MG PO (20:48)
[2024-05-29] MEDS: Benztropine Mesylate 0.5 MG TABLET PO (20:48)
[2024-05-29] MEDS: ARIPiprazole 15 MG TABLET PO (20:48)
[2024-05-29] MEDS: QUEtiapine Fumarate 200 MG TABLET PO (20:48)
[2024-05-29] MEDS: traZODone HCL 50 MG TABLET PO (20:48)
--- NOTE | 2024-05-30 07:42 | PC.NURSE ---
Declined to have VPA level drawn despite encouragement and education from this medical underwriter. Dr. Leary notified. Will contact lab to reattempt later today.
[2024-05-30 08:00] VITALS: BP 117/71; PULSE 75; RESP 17; TEMP 36.3; O2SAT 97
[2024-05-30 09:32] VITALS: BP 117/71
[2024-05-30] MEDS: Docusate Sodium 100 MG CAPSULE 200 MG PO ×2 (09:32→21:21)
[2024-05-30] MEDS: lisinopriL 2.5 MG TABLET PO (09:32)
[2024-05-30 09:58] LABS: Valproate 114.7 mcg/mL (50.0-100.0)
--- NOTE | 2024-05-30 10:08 | PC.NURSE ---
Critical VPA level 114.[address] Leary notified via [place] [employer]. Critical result flowsheet completed.
--- NOTE | 2024-05-30 11:37 | PC.NURSE ---
Intake of meals poor although she does snack at times. Notified Dr. Leary and questioned need for nutrition consult.
--- NOTE | 2024-05-30 14:19 | HO.PSYCHPN ---
Subjective Subjective Date of Service: 05/30/24 Reason For Visit: Psychosis Subjective Notes: Conditional Voluntary Interim History: The nursing staff reported the patient had been intrusive, in the morning she was compliant with medications she refused lab work today in the morning. The staff reported the patient complained of auditory hallucinations sporadically she slept 4 hours. The occupational therapist did a cognitive assessment in May 15 and she did on the [place] and 4.2 she still hypomanic and disorganized. Overall she is slightly better. On interview the patient denies new symptoms but she is extremely intrusive with peers Mental Status Exam Mental Status Exam Patient Appearance: Appropriate Patient Orientation: Person and Situation Level of Consciousness: Awake and Appropriate Patient Behavior: Guarded and Passive Mood Description: Withdrawn Affect Description: Constricted Patient Cognition Impaired: Yes Ability to Follow Directions: Good Speech Pattern: Clear Hallucinations: None Delusions: Not Present Thought Process: Distracted Thought Content: positive for [place] and positive for [place] Judgement: Fair Diagnostics Vital Signs (24Hr): Vital Signs - 24 hr 05/29/24 20:00 05/30/24 08:00 05/30/24 09:32 Temperature 98.3 F 97.3 F Pulse Rate 82 75 Respiratory Rate 16 17 Blood Pressure 126/67 117/71 117/71 Pulse Oximetry 99 97 Oxygen Delivery Method Room Air Room Air BMI result Body Mass Index 24.3 Labs 05/04/24 15:03 05/22/24 08:03 Labs: Laboratory Results - last 48 hr 05/30/24 09:29 Valproic Acid 114.7 H* Imaging Radiology Impressions: ITS Impressions Head CT 05/16/24 14:30 IMPRESSION: There are no acute bleeds or territorial infarcts. No masses are demonstrated. Brain parenchymal attenuation is unremarkable. Medications Medications Current Medications Acetaminophen (Acetaminophen 325 Mg Tablet) 650 mg PO Q6H PRN PRN Reason: Headache/Pain Mild Scale (1-3) Last Admin: 05/18/24 20:51 Dose: 650 mg Al Hydroxide/Mg Hydroxide (Magnesium Hydrox/Alum Hydrox 30 Ml Oral.Susp) 30 ml PO Q6H PRN PRN Reason: Heartburn/Nausea Aripiprazole (Aripiprazole 15 Mg Tablet) 15 mg PO BEDTIME SALLY Last Admin: 05/29/24 20:48 Dose: 15 mg Benztropine Mesylate (Benztropine Mesylate 0.5 Mg Tablet) 0.5 mg PO BEDTIME SALLY Last Admin: 05/29/24 20:48 Dose: 0.5 mg Bisacodyl (Bisacodyl 10 Mg Supp.Rect) 10 mg [place] DAILY PRN PRN Reason: Constipation Divalproex Sodium (Divalproex Sodium Er 250 Mg Tab.Er.24h) 750 mg PO BEDTIME SALLY Last Admin: 05/29/24 20:48 Dose: 750 mg Docusate Sodium (Docusate Sodium 100 Mg Capsule) 200 mg PO BID [facility] Last Admin: 05/30/24 09:32 Dose: 200 mg Hydroxyzine HCl (Hydroxyzine Hcl 25 Mg Tablet) 25 mg PO Q6H PRN PRN Reason: Anxiety Last Admin: 05/18/24 20:47 Dose: 25 mg Lisinopril (Lisinopril 2.5 Mg Tablet) 2.5 mg PO DAILY [facility]; Protocol Last Admin: 05/30/24 09:32 Dose: 2.5 mg Magnesium Hydroxide (Milk Of Magnesia 30 Ml Oral.Susp) 30 ml PO DAILY PRN PRN Reason: Constipation Last Admin: 05/25/24 09:57 Dose: 30 ml Ondansetron HCl (Ondansetron Odt 4 Mg Tab.Rapdis) 8 mg TRANSLINGU Q8H PRN PRN Reason: Nausea and Vomiting Last Admin: 05/26/24 11:02 Dose: 8 mg Polyethylene Glycol (Polyethylene Glycol 3350 17 Gm Powd.Pack) 17 gm PO DAILY PRN PRN Reason: constipation Last Admin: 05/15/24 17:41 Dose: 17 gm Quetiapine Fumarate (Quetiapine Fumarate 50 Mg Tablet) 50 mg PO BID PRN PRN Reason: Agitation Last Admin: 05/17/24 05:41 Dose: 50 mg Quetiapine Fumarate (Quetiapine Fumarate 200 Mg Tablet) 200 mg PO BEDTIME [facility] Last Admin: 05/29/24 20:48 Dose: 200 mg Sodium Biphosphate/Sodium Phosphate (Sodium Phosphate,[place]-Dibasic 133 Ml Enema) 133 ml [place] ONCE PRN PRN Reason: severe constipation Last Admin: 05/13/24 18:19 Dose: 133 ml Trazodone HCl (Trazodone Hcl 50 Mg Tablet) 50 mg PO BEDTIME MRX1 PRN PRN Reason: Insomnia Last Admin: 05/29/24 20:48 Dose: 50 mg Allergies Allergies Allergy/AdvReac Type Severity Reaction Status Date / Time No Known Allergies Allergy Verified 05/04/24 15:04 Assessment & Plan Assessment & Plan (1) Bipolar 1 disorder: Status: Acute Code(s): F31.9 - Bipolar disorder, unspecified (2) Dementia: Status: Acute Code(s): F03.90 - Unspecified dementia, unspecified severity, without behavioral disturbance, psychotic disturbance, mood disturbance, and anxiety Plan The patient is an elderly [place] female, bilingual, with a past history of bipolar disorder and a past history of catatonia with several admissions into the hospital, recently admitted twice in the last 60 days for a presentation of selena. Currently now she has manic symptoms. Plan 1. Continue Seroquel 100 p.o. q.a.m. and 300 mg p.o. q.h.s., also with PRNs Seroquel 50 as needed. 2. Increase Depakote up to 250 mg p.o. b.i.d.. On May 10 we increased up to Depakote 200 p.o. t.i.d.. On May 11 we increased Depakote up to 500 mg p.o. b.i.d.. We will have a Depakote level next week. 05/17: calm, cooperative, pleasant. VPA level 50. 3. Lowered to Lamictal up to 50 mg p.o. daily. On May 10 we lowered Lamictal to 25 p.o. daily. On May 11 we discontinue Lamictal 4. Continue with medical workout. 5. 15 minute checks. 6. On May 18, we discussed at length with her daughter Love about treatment options and we are going to increase Depakote ER up to 1500 mg and recheck next Tuesday. 7. Seroquel was lowered up to 300 mg p.o. q.h.s. due to over-sedation a few days ago. We are going to keep it on the same dose so far, she remains manic. 8. Depakote will be rechecked on May 22 with comprehensive metabolic panel. It came back over 140 and she has nausea and vomiting. We are lowering to 1250 tonight. 9. Start Abilify 5 mg p.o. q.a.m.. And lower Seroquel up to 200 mg p.o. q.h.s. for sleep. Started on May 22. On May 25 we increased Abilify to 10 mg daily. On May 28 we increased Abilify to 15 mg p.o. q.h.s. Reason for continued inpatient stay Substantial Risk for: inability to function, rapid decompensation and med/psych decompensation Time Spent With Patient Time: Total time managing care of this patient today __20__ minutes.
[2024-05-30 20:00] VITALS: BP 133/73; PULSE 81; RESP 18; TEMP 36.3; O2SAT 98
[2024-05-30] MEDS: QUEtiapine Fumarate 200 MG TABLET PO (21:21)
[2024-05-30] MEDS: Divalproex Sodium ER 250 MG TAB.ER.24H 750 MG PO (21:21)
[2024-05-30] MEDS: ARIPiprazole 15 MG TABLET PO (21:21)
[2024-05-30] MEDS: Benztropine Mesylate 0.5 MG TABLET PO (21:21)
[2024-05-31 07:00] VITALS: BMI 24.1
[2024-05-31 08:00] VITALS: BP 143/63; PULSE 74; RESP 18; TEMP 36.2; O2SAT 97
[2024-05-31] MEDS: Docusate Sodium 100 MG CAPSULE 200 MG PO ×2 (09:26→20:17)
[2024-05-31] MEDS: lisinopriL 2.5 MG TABLET PO (09:26)
--- NOTE | 2024-05-31 15:04 | HO.PSYCHPN ---
Subjective Subjective Date of Service: 05/31/24 Reason For Visit: Psychosis Subjective Notes: Conditional Voluntary Interim History: The patient remains manic, no sleep last night with poor appetite, intrussive with staff. Attended to a group and she was yelling but she was redirected easily. On interview, she denies new symptoms, looks confused. Mental Status Exam Mental Status Exam Patient Appearance: Appropriate Patient Orientation: Person and Situation Level of Consciousness: Awake and Appropriate Patient Behavior: Guarded and Passive Mood Description: Withdrawn Affect Description: Constricted Patient Cognition Impaired: Yes Ability to Follow Directions: Fair Speech Pattern: Clear Hallucinations: None Delusions: Paranoid Ideation, Grandiose and Ideas of Reference Thought Process: Distracted and Slowed Thinking Thought Content: positive for [place] and positive for Poverty of Content Judgement: Poor Diagnostics Vital Signs (24Hr): Vital Signs - 24 hr 05/30/24 20:00 05/31/24 08:00 Temperature 97.4 F 97.2 F Pulse Rate 81 74 Respiratory Rate 18 18 Blood Pressure 133/73 143/63 H Pulse Oximetry 98 97 Oxygen Delivery Method Room Air Room Air BMI result Body Mass Index 24.1 Labs 05/04/24 15:03 05/22/24 08:03 Labs: Laboratory Results - last 48 hr 05/30/24 09:29 Valproic Acid 114.7 H* Imaging Radiology Impressions: ITS Impressions Head CT 05/16/24 14:30 IMPRESSION: There are no acute bleeds or territorial infarcts. No masses are demonstrated. Brain parenchymal attenuation is unremarkable. Medications Medications Current Medications Acetaminophen (Acetaminophen 325 Mg Tablet) 650 mg PO Q6H PRN PRN Reason: Headache/Pain Mild Scale (1-3) Last Admin: 05/18/24 20:51 Dose: 650 mg Al Hydroxide/Mg Hydroxide (Magnesium Hydrox/Alum Hydrox 30 Ml Oral.Susp) 30 ml PO Q6H PRN PRN Reason: Heartburn/Nausea Aripiprazole (Aripiprazole 15 Mg Tablet) 15 mg PO BEDTIME SALLY Last Admin: 05/30/24 21:21 Dose: 15 mg Benztropine Mesylate (Benztropine Mesylate 0.5 Mg Tablet) 0.5 mg PO BEDTIME SALLY Last Admin: 05/30/24 21:21 Dose: 0.5 mg Bisacodyl (Bisacodyl 10 Mg Supp.Rect) 10 mg [place] DAILY PRN PRN Reason: Constipation Divalproex Sodium (Divalproex Sodium Er 250 Mg Tab.Er.24h) 750 mg PO BEDTIME SALLY Last Admin: 05/30/24 21:21 Dose: 750 mg Docusate Sodium (Docusate Sodium 100 Mg Capsule) 200 mg PO BID [facility] Last Admin: 05/31/24 09:26 Dose: 200 mg Hydroxyzine HCl (Hydroxyzine Hcl 25 Mg Tablet) 25 mg PO Q6H PRN PRN Reason: Anxiety Last Admin: 05/18/24 20:47 Dose: 25 mg Lisinopril (Lisinopril 2.5 Mg Tablet) 2.5 mg PO DAILY [facility]; Protocol Last Admin: 05/31/24 09:26 Dose: 2.5 mg Magnesium Hydroxide (Milk Of Magnesia 30 Ml Oral.Susp) 30 ml PO DAILY PRN PRN Reason: Constipation Last Admin: 05/25/24 09:57 Dose: 30 ml Ondansetron HCl (Ondansetron Odt 4 Mg Tab.Rapdis) 8 mg TRANSLINGU Q8H PRN PRN Reason: Nausea and Vomiting Last Admin: 05/26/24 11:02 Dose: 8 mg Polyethylene Glycol (Polyethylene Glycol 3350 17 Gm Powd.Pack) 17 gm PO DAILY PRN PRN Reason: constipation Last Admin: 05/15/24 17:41 Dose: 17 gm Quetiapine Fumarate (Quetiapine Fumarate 50 Mg Tablet) 50 mg PO BID PRN PRN Reason: Agitation Last Admin: 05/17/24 05:41 Dose: 50 mg Quetiapine Fumarate (Quetiapine Fumarate 200 Mg Tablet) 200 mg PO BEDTIME SALLY Last Admin: 05/30/24 21:21 Dose: 200 mg Sodium Biphosphate/Sodium Phosphate (Sodium Phosphate,[place]-Dibasic 133 Ml Enema) 133 ml [place] ONCE PRN PRN Reason: severe constipation Last Admin: 05/13/24 18:19 Dose: 133 ml Trazodone HCl (Trazodone Hcl 50 Mg Tablet) 50 mg PO BEDTIME MRX1 PRN PRN Reason: Insomnia Last Admin: 05/29/24 20:48 Dose: 50 mg Allergies Allergies Allergy/AdvReac Type Severity Reaction Status Date / Time No Known Allergies Allergy Verified 05/04/24 15:04 Assessment & Plan Assessment & Plan (1) Bipolar 1 disorder: Status: Acute Code(s): F31.9 - Bipolar disorder, unspecified (2) Dementia: Status: Acute Code(s): F03.90 - Unspecified dementia, unspecified severity, without behavioral disturbance, psychotic disturbance, mood disturbance, and anxiety Plan The patient is an elderly Armenian female, bilingual, with a past history of bipolar disorder and a past history of catatonia with several admissions into the hospital, recently admitted twice in the last 60 days for a presentation of selena. Currently now she has manic symptoms. Plan 1. Continue Seroquel 100 p.o. q.a.m. and 300 mg p.o. q.h.s., also with PRNs Seroquel 50 as needed. 2. Increase Depakote up to 250 mg p.o. b.i.d.. On May 10 we increased up to Depakote 200 p.o. t.i.d.. On May 11 we increased Depakote up to 500 mg p.o. b.i.d.. We will have a Depakote level next week. 05/17: calm, cooperative, pleasant. VPA level 50. 3. Lowered to Lamictal up to 50 mg p.o. daily. On May 10 we lowered Lamictal to 25 p.o. daily. On May 11 we discontinue Lamictal 4. Continue with medical workout. 5. 15 minute checks. 6. On May 18, we discussed at length with her daughter Love about treatment options and we are going to increase Depakote ER up to 1500 mg and recheck next Tuesday. 7. Seroquel was lowered up to 300 mg p.o. q.h.s. due to over-sedation a few days ago. We are going to keep it on the same dose so far, she remains manic. 8. Depakote will be rechecked on May 22 with comprehensive metabolic panel. It came back over 140 and she has nausea and vomiting. We are lowering to 1250 tonight. Later on, she was lowered to 1000 a day with a level over 110. 9. Start Abilify 5 mg p.o. q.a.m.. And lower Seroquel up to 200 mg p.o. q.h.s. for sleep. Started on May 22. On May 25 we increased Abilify to 10 mg daily. On May 28 we increased Abilify to 15 mg p.o. q.h.s. Reason for continued inpatient stay Substantial Risk for: inability to function, rapid decompensation and med/psych decompensation Time Spent With Patient Time: Total time managing care of this patient today __20__ minutes.
[2024-05-31 20:00] VITALS: BP 126/79; PULSE 75; RESP 18; TEMP 36.6; O2SAT 99
[2024-05-31] MEDS: Divalproex Sodium ER 250 MG TAB.ER.24H 750 MG PO (20:16)
[2024-05-31] MEDS: ARIPiprazole 15 MG TABLET PO (20:17)
[2024-05-31] MEDS: QUEtiapine Fumarate 200 MG TABLET PO (20:17)
[2024-05-31] MEDS: Benztropine Mesylate 0.5 MG TABLET PO (20:17)
[2024-05-31] MEDS: traZODone HCL 50 MG TABLET PO (20:17)
[2024-06-01 08:00] VITALS: BP 124/61; PULSE 81; RESP 18; TEMP 36.4; O2SAT 96
[2024-06-01 08:28] VITALS: BP 124/61
[2024-06-01] MEDS: lisinopriL 2.5 MG TABLET PO (08:28)
[2024-06-01] MEDS: Docusate Sodium 100 MG CAPSULE 200 MG PO (08:29)
[2024-06-01] MEDS: hydrOXYzine HCL 25 MG TABLET PO (12:14)
--- NOTE | 2024-06-01 12:46 | HO.PSYCHPN ---
Subjective Subjective Date of Service: 06/01/24 Reason For Visit: Psychosis Subjective Notes: Conditional Voluntary Interim History: Nursing staff reported the patient remains intrusive, hyper active yelling at times. On interview the patient was very loud demanding to be discharged. We are going to increase Abilify up to 20 mg at bedtime as a mood stabilizer. Mental Status Exam Mental Status Exam Patient Appearance: Well Grooomed and Appropriate Patient Orientation: Person and Situation Level of Consciousness: Awake and Appropriate Patient Behavior: Guarded and Passive Mood Description: Withdrawn Affect Description: Constricted Patient Cognition Impaired: Yes Ability to Follow Directions: Good Speech Pattern: Clear Hallucinations: None Delusions: Ideas of Reference Thought Process: Racing and Distracted Thought Content: positive for [place] and positive for Poverty of Content Judgement: Poor Diagnostics Vital Signs (24Hr): Vital Signs - 24 hr 05/31/24 20:00 06/01/24 08:00 06/01/24 08:28 Temperature 97.8 F 97.5 F Pulse Rate 75 81 Respiratory Rate 18 18 Blood Pressure 126/79 124/61 124/61 Pulse Oximetry 99 96 Oxygen Delivery Method Room Air Room Air BMI result Body Mass Index 24.1 Labs 05/04/24 15:03 05/22/24 08:03 Imaging Radiology Impressions: ITS Impressions Head CT 05/16/24 14:30 IMPRESSION: There are no acute bleeds or territorial infarcts. No masses are demonstrated. Brain parenchymal attenuation is unremarkable. Medications Medications Current Medications Acetaminophen (Acetaminophen 325 Mg Tablet) 650 mg PO Q6H PRN PRN Reason: Headache/Pain Mild Scale (1-3) Last Admin: 05/18/24 20:51 Dose: 650 mg Al Hydroxide/Mg Hydroxide (Magnesium Hydrox/Alum Hydrox 30 Ml Oral.Susp) 30 ml PO Q6H PRN PRN Reason: Heartburn/Nausea Aripiprazole (Aripiprazole 20 Mg Tablet) 20 mg PO BEDTIME [facility] Benztropine Mesylate (Benztropine Mesylate 0.5 Mg Tablet) 0.5 mg PO BEDTIME [facility] Last Admin: 05/31/24 20:17 Dose: 0.5 mg Bisacodyl (Bisacodyl 10 Mg Supp.Rect) 10 mg [place] DAILY PRN PRN Reason: Constipation Divalproex Sodium (Divalproex Sodium Er 250 Mg Tab.Er.24h) 750 mg PO BEDTIME [facility] Last Admin: 05/31/24 20:16 Dose: 750 mg Docusate Sodium (Docusate Sodium 100 Mg Capsule) 200 mg PO BID [facility] Last Admin: 06/01/24 08:29 Dose: 200 mg Hydroxyzine HCl (Hydroxyzine Hcl 25 Mg Tablet) 25 mg PO Q6H PRN PRN Reason: Anxiety Last Admin: 06/01/24 12:14 Dose: 25 mg Lisinopril (Lisinopril 2.5 Mg Tablet) 2.5 mg PO DAILY [facility]; Protocol Last Admin: 06/01/24 08:28 Dose: 2.5 mg Magnesium Hydroxide (Milk Of Magnesia 30 Ml Oral.Susp) 30 ml PO DAILY PRN PRN Reason: Constipation Last Admin: 05/25/24 09:57 Dose: 30 ml Ondansetron HCl (Ondansetron Odt 4 Mg Tab.Rapdis) 8 mg TRANSLINGU Q8H PRN PRN Reason: Nausea and Vomiting Last Admin: 05/26/24 11:02 Dose: 8 mg Polyethylene Glycol (Polyethylene Glycol 3350 17 Gm Powd.Pack) 17 gm PO DAILY PRN PRN Reason: constipation Last Admin: 05/15/24 17:41 Dose: 17 gm Quetiapine Fumarate (Quetiapine Fumarate 50 Mg Tablet) 50 mg PO BID PRN PRN Reason: Agitation Last Admin: 05/17/24 05:41 Dose: 50 mg Quetiapine Fumarate (Quetiapine Fumarate 200 Mg Tablet) 200 mg PO BEDTIME [facility] Last Admin: 05/31/24 20:17 Dose: 200 mg Sodium Biphosphate/Sodium Phosphate (Sodium Phosphate,[place]-Dibasic 133 Ml Enema) 133 ml [place] ONCE PRN PRN Reason: severe constipation Last Admin: 05/13/24 18:19 Dose: 133 ml Trazodone HCl (Trazodone Hcl 50 Mg Tablet) 50 mg PO BEDTIME MRX1 PRN PRN Reason: Insomnia Last Admin: 05/31/24 20:17 Dose: 50 mg Allergies Allergies Allergy/AdvReac Type Severity Reaction Status Date / Time No Known Allergies Allergy Verified 05/04/24 15:04 Assessment & Plan Assessment & Plan (1) Bipolar 1 disorder: Status: Acute Code(s): F31.9 - Bipolar disorder, unspecified (2) Dementia: Status: Acute Code(s): F03.90 - Unspecified dementia, unspecified severity, without behavioral disturbance, psychotic disturbance, mood disturbance, and anxiety Plan The patient is an elderly [place]ic female, bilingual, with a past history of bipolar disorder and a past history of catatonia with several admissions into the hospital, recently admitted twice in the last 60 days for a presentation of selena. Currently now she has manic symptoms. Plan 1. Continue Seroquel 100 p.o. q.a.m. and 300 mg p.o. q.h.s., also with PRNs Seroquel 50 as needed. 2. Increase Depakote up to 250 mg p.o. b.i.d.. On May 10 we increased up to Depakote 200 p.o. t.i.d.. On May 11 we increased Depakote up to 500 mg p.o. b.i.d.. We will have a Depakote level next week. 05/17: calm, cooperative, pleasant. VPA level 50. 3. Lowered to Lamictal up to 50 mg p.o. daily. On May 10 we lowered Lamictal to 25 p.o. daily. On May 11 we discontinue Lamictal 4. Continue with medical workout. 5. 15 minute checks. 6. On May 18, we discussed at length with her daughter Love about treatment options and we are going to increase Depakote ER up to 1500 mg and recheck next Tuesday. 7. Seroquel was lowered up to 300 mg p.o. q.h.s. due to over-sedation a few days ago. We are going to keep it on the same dose so far, she remains manic. 8. Depakote will be rechecked on May 22 with comprehensive metabolic panel. It came back over 140 and she has nausea and vomiting. We are lowering to 1250 tonight. Later on, she was lowered to 1000 a day with a level over 110. 9. Start Abilify 5 mg p.o. q.a.m.. And lower Seroquel up to 200 mg p.o. q.h.s. for sleep. Started on May 22. On May 25 we increased Abilify to 10 mg daily. On May 28 we increased Abilify to 15 mg p.o. q.h.s. on June 01 we increase the Abilify up to 20 mg p.o. q.h.s. since the patient still manic Reason for continued inpatient stay Substantial Risk for: inability to function, rapid decompensation and med/psych decompensation Time Spent With Patient Time: Total time managing care of this patient today _20___ minutes.
[2024-06-02 08:00] VITALS: BP 137/84; PULSE 94; RESP 17; TEMP 36.3; O2SAT 97
--- NOTE | 2024-06-02 08:26 | HO.PSYCHPN ---
Subjective Subjective Date of Service: 06/02/24 Reason For Visit: Psychosis Subjective Notes: Section 7 Interim History: Pt did not sleep most of the night. she is very suspicious and paranoid, religiously preoccupied, exit seeking. She has required multiple redirection as she tries to leave the unit. She is refusing medications. Review of Systems Review of Systems Dizziness Yes all other systems are reviewed and are negative Mental Status Exam Mental Status Exam Patient Appearance: Well Grooomed and Appropriate Patient Orientation: Person and Situation Level of Consciousness: Awake and Appropriate Patient Behavior: Guarded and Passive Mood Description: Withdrawn Affect Description: Constricted Patient Cognition Impaired: Yes Ability to Follow Directions: Good Speech Pattern: Clear Diagnostics Vital Signs (24Hr): Vital Signs - 24 hr 06/01/24 08:28 Blood Pressure 124/61 BMI result Body Mass Index 24.1 Labs 05/04/24 15:03 05/22/24 08:03 Imaging Radiology Impressions: ITS Impressions Head CT 05/16/24 14:30 IMPRESSION: There are no acute bleeds or territorial infarcts. No masses are demonstrated. Brain parenchymal attenuation is unremarkable. Medications Medications Current Medications Acetaminophen (Acetaminophen 325 Mg Tablet) 650 mg PO Q6H PRN PRN Reason: Headache/Pain Mild Scale (1-3) Last Admin: 05/18/24 20:51 Dose: 650 mg Al Hydroxide/Mg Hydroxide (Magnesium Hydrox/Alum Hydrox 30 Ml Oral.Susp) 30 ml PO Q6H PRN PRN Reason: Heartburn/Nausea Aripiprazole (Aripiprazole 20 Mg Tablet) 20 mg PO BEDTIME [facility] Last Admin: 06/01/24 23:41 Dose: Not Given Benztropine Mesylate (Benztropine Mesylate 0.5 Mg Tablet) 0.5 mg PO BEDTIME [facility] Last Admin: 06/01/24 23:54 Dose: Not Given Bisacodyl (Bisacodyl 10 Mg Supp.Rect) 10 mg [place] DAILY PRN PRN Reason: Constipation Divalproex Sodium (Divalproex Sodium Er 250 Mg Tab.Er.24h) 750 mg PO BEDTIME [facility] Last Admin: 06/01/24 23:54 Dose: Not Given Docusate Sodium (Docusate Sodium 100 Mg Capsule) 200 mg PO BID [facility] Last Admin: 06/01/24 23:54 Dose: Not Given Hydroxyzine HCl (Hydroxyzine Hcl 25 Mg Tablet) 25 mg PO Q6H PRN PRN Reason: Anxiety Last Admin: 06/01/24 12:14 Dose: 25 mg Lisinopril (Lisinopril 2.5 Mg Tablet) 2.5 mg PO DAILY [facility]; Protocol Last Admin: 06/01/24 08:28 Dose: 2.5 mg Magnesium Hydroxide (Milk Of Magnesia 30 Ml Oral.Susp) 30 ml PO DAILY PRN PRN Reason: Constipation Last Admin: 05/25/24 09:57 Dose: 30 ml Ondansetron HCl (Ondansetron Odt 4 Mg Tab.Rapdis) 8 mg TRANSLINGU Q8H PRN PRN Reason: Nausea and Vomiting Last Admin: 05/26/24 11:02 Dose: 8 mg Polyethylene Glycol (Polyethylene Glycol 3350 17 Gm Powd.Pack) 17 gm PO DAILY PRN PRN Reason: constipation Last Admin: 05/15/24 17:41 Dose: 17 gm Quetiapine Fumarate (Quetiapine Fumarate 50 Mg Tablet) 50 mg PO BID PRN PRN Reason: Agitation Last Admin: 05/17/24 05:41 Dose: 50 mg Quetiapine Fumarate (Quetiapine Fumarate 200 Mg Tablet) 200 mg PO BEDTIME [facility] Last Admin: 06/01/24 23:55 Dose: Not Given Sodium Biphosphate/Sodium Phosphate (Sodium Phosphate,[place]-Dibasic 133 Ml Enema) 133 ml [place] ONCE PRN PRN Reason: severe constipation Last Admin: 05/13/24 18:19 Dose: 133 ml Trazodone HCl (Trazodone Hcl 50 Mg Tablet) 50 mg PO BEDTIME MRX1 PRN PRN Reason: Insomnia Last Admin: 05/31/24 20:17 Dose: 50 mg Allergies Allergies Allergy/AdvReac Type Severity Reaction Status Date / Time No Known Allergies Allergy Verified 05/04/24 15:04 Assessment & Plan Assessment & Plan (1) Bipolar 1 disorder: Status: Acute Code(s): F31.9 - Bipolar disorder, unspecified (2) Dementia: Status: Acute Code(s): F03.90 - Unspecified dementia, unspecified severity, without behavioral disturbance, psychotic disturbance, mood disturbance, and anxiety Plan The patient is an elderly [place]i female, bilingual, with a past history of bipolar disorder and a past history of catatonia with several admissions into the hospital, recently admitted twice in the last 60 days for a presentation of selena. Currently now she has manic symptoms. Plan 06/02 olanzapine prn, refusing medications. Reason for continued inpatient stay Substantial Risk for: inability to function Time Spent With Patient Time: Total time managing care of this patient today ____ minutes.
[2024-06-02] MEDS: lisinopriL 2.5 MG TABLET PO (08:52)
[2024-06-02] MEDS: Docusate Sodium 100 MG CAPSULE 200 MG PO (08:52)
[2024-06-02 20:00] VITALS: BP 139/66; PULSE 100; RESP 16; TEMP 36.1; O2SAT 97
[2024-06-03] MEDS: OLANZapine 10 MG VIAL 5 MG IM (04:00)
[2024-06-03] MEDS: LORazepam 2 MG/ML VIAL IM (05:10)
[2024-06-03] MEDS: Haloperidol Lactate 5 MG/ML VIAL IM (05:10)
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
[2024-06-03 14:26] VITALS: BP 118/65; PULSE 91; RESP 17; TEMP 36.6; O2SAT 95
--- NOTE | 2024-06-03 16:59 | P.PNPSI_ITS ---
Subjective Subjective Date of Service: 06/03/24 Reason For Visit: Psychosis Subjective Notes: Conditional Voluntary Interim History: Pt did not sleep most of the night. Last evening, spitting at staff, difficult to redirect. requiring IM medication Olanzapine and ativan. She slept most of the morning. Review of Systems Review of Systems Dizziness Yes all other systems are reviewed and are negative Mental Status Exam Mental Status Exam Patient Appearance: Well Grooomed and Appropriate Patient Orientation: Person and Situation Level of Consciousness: Awake and Appropriate Patient Behavior: Guarded and Passive Mood Description: Withdrawn Affect Description: Constricted Patient Cognition Impaired: Yes Ability to Follow Directions: Good Speech Pattern: Clear Diagnostics Vital Signs (24Hr): Vital Signs - 24 hr 06/02/24 20:00 06/03/24 14:26 Temperature 97 F 98 F Pulse Rate 100 91 Respiratory Rate 16 17 Blood Pressure 139/66 118/65 Pulse Oximetry 97 95 Oxygen Delivery Method Room Air Room Air BMI result Body Mass Index 24.1 Labs 05/04/24 15:03 05/22/24 08:03 Imaging Radiology Impressions: ITS Impressions Head CT 05/16/24 14:30 IMPRESSION: There are no acute bleeds or territorial infarcts. No masses are demonstrated. Brain parenchymal attenuation is unremarkable. Medications Medications Current Medications Acetaminophen (Acetaminophen 325 Mg Tablet) 650 mg PO Q6H PRN PRN Reason: Headache/Pain Mild Scale (1-3) Last Admin: 05/18/24 20:51 Dose: 650 mg Al Hydroxide/Mg Hydroxide (Magnesium Hydrox/Alum Hydrox 30 Ml Oral.Susp) 30 ml PO Q6H PRN PRN Reason: Heartburn/Nausea Aripiprazole (Aripiprazole 20 Mg Tablet) 20 mg PO BEDTIME [facility] Last Admin: 06/02/24 22:00 Dose: Not Given Benztropine Mesylate (Benztropine Mesylate 0.5 Mg Tablet) 0.5 mg PO BEDTIME [facility] Last Admin: 06/02/24 22:01 Dose: Not Given Bisacodyl (Bisacodyl 10 Mg Supp.Rect) 10 mg [place] DAILY PRN PRN Reason: Constipation Divalproex Sodium (Divalproex Sodium Er 250 Mg Tab.Er.24h) 750 mg PO BEDTIME [facility] Last Admin: 06/02/24 22:01 Dose: Not Given Docusate Sodium (Docusate Sodium 100 Mg Capsule) 200 mg PO BID [facility] Last Admin: 06/03/24 10:56 Dose: Not Given Hydroxyzine HCl (Hydroxyzine Hcl 25 Mg Tablet) 25 mg PO Q6H PRN PRN Reason: Anxiety Last Admin: 06/01/24 12:14 Dose: 25 mg Lisinopril (Lisinopril 2.5 Mg Tablet) 2.5 mg PO DAILY [facility]; Protocol Last Admin: 06/03/24 10:56 Dose: Not Given Magnesium Hydroxide (Milk Of Magnesia 30 Ml Oral.Susp) 30 ml PO DAILY PRN PRN Reason: Constipation Last Admin: 05/25/24 09:57 Dose: 30 ml Olanzapine (Olanzapine Odt 10 Mg Tab.Rapdis) 10 mg TRANSLINGU Q6H PRN PRN Reason: agitation Ondansetron HCl (Ondansetron Odt 4 Mg Tab.Rapdis) 8 mg TRANSLINGU Q8H PRN PRN Reason: Nausea and Vomiting Last Admin: 05/26/24 11:02 Dose: 8 mg Polyethylene Glycol (Polyethylene Glycol 3350 17 Gm Powd.Pack) 17 gm PO DAILY PRN PRN Reason: constipation Last Admin: 05/15/24 17:41 Dose: 17 gm Quetiapine Fumarate (Quetiapine Fumarate 200 Mg Tablet) 200 mg PO BEDTIME [facility] Last Admin: 06/02/24 22:01 Dose: Not Given Sodium Biphosphate/Sodium Phosphate (Sodium Phosphate,[place]-Dibasic 133 Ml Enema) 133 ml [place] ONCE PRN PRN Reason: severe constipation Last Admin: 05/13/24 18:19 Dose: 133 ml Trazodone HCl (Trazodone Hcl 50 Mg Tablet) 50 mg PO BEDTIME MRX1 PRN PRN Reason: Insomnia Last Admin: 05/31/24 20:17 Dose: 50 mg Allergies Allergies Allergy/AdvReac Type Severity Reaction Status Date / Time No Known Allergies Allergy Verified 05/04/24 15:04 Assessment & Plan Assessment & Plan (1) Bipolar 1 disorder: Status: Acute Code(s): F31.9 - Bipolar disorder, unspecified (2) Dementia: Status: Acute Code(s): F03.90 - Unspecified dementia, unspecified severity, without behavioral disturbance, psychotic disturbance, mood disturbance, and anxiety Plan The patient is an elderly Czech female, bilingual, with a past history of bipolar disorder and a past history of catatonia with several admissions into the hospital, recently admitted twice in the last 60 days for a presentation of selena. Currently now she has manic symptoms. Plan 06/02 olanzapine prn, refusing medications. 06/03 continue tx. Reason for continued inpatient stay Substantial Risk for: inability to function Time Spent With Patient Time: Total time managing care of this patient today ____ minutes.
[2024-06-03 20:00] VITALS: BP 119/65; PULSE 97; RESP 18; TEMP 36.8; O2SAT 97
[2024-06-04 08:00] VITALS: BP 132/80; PULSE 89; RESP 18; TEMP 36.6; O2SAT 96
[2024-06-04] MEDS: Docusate Sodium 100 MG CAPSULE 200 MG PO ×2 (08:05→20:11)
[2024-06-04 08:06] VITALS: BP 132/80
[2024-06-04] MEDS: lisinopriL 2.5 MG TABLET PO (08:06)
--- NOTE | 2024-06-04 10:49 | P.PNPSI_ITS ---
Subjective Subjective Date of Service: 06/04/24 Reason For Visit: Psychosis Subjective Notes: Conditional Voluntary Healthcare Proxy: Yes Interim History: The nursing staff reported the patient did not sleep last night, she slept only 2 hours and she had been disrobing grossly disorganized. She was medicated with an IM over the weekend due to exit seeking behavior and restlessness unable to be redirected. Today in the morning she was exit seeking standing on the door. Apparently, she had been noncompliant with Depakote Seroquel and Abilify for 3 days in a row. Mental Status Exam Mental Status Exam Patient Appearance: Well Grooomed Patient Orientation: Person and Situation Level of Consciousness: Awake and Appropriate Patient Behavior: Guarded and Passive Mood Description: Withdrawn and Labile Affect Description: Hostile Patient Cognition Impaired: Yes Ability to Follow Directions: Good Speech Pattern: Rapid and Loud Hallucinations: None Delusions: Paranoid Ideation, Grandiose and Ideas of Reference Thought Process: Illogical and Distracted Thought Content: positive for [place] and positive for Thought Blocking Judgement: Poor Diagnostics Vital Signs (24Hr): Vital Signs - 24 hr 06/03/24 14:26 06/03/24 20:00 06/04/24 08:00 Temperature 98 F 98.3 F 97.8 F Pulse Rate 91 97 89 Respiratory Rate 17 18 18 Blood Pressure 118/65 119/65 132/80 Pulse Oximetry 95 97 96 Oxygen Delivery Method Room Air Room Air Room Air 06/04/24 08:06 Temperature Pulse Rate Respiratory Rate Blood Pressure 132/80 Pulse Oximetry Oxygen Delivery Method BMI result Body Mass Index 24.1 Labs 05/04/24 15:03 05/22/24 08:03 Imaging Radiology Impressions: ITS Impressions Head CT 05/16/24 14:30 IMPRESSION: There are no acute bleeds or territorial infarcts. No masses are demonstrated. Brain parenchymal attenuation is unremarkable. Medications Medications Current Medications Acetaminophen (Acetaminophen 325 Mg Tablet) 650 mg PO Q6H PRN PRN Reason: Headache/Pain Mild Scale (1-3) Last Admin: 05/18/24 20:51 Dose: 650 mg Al Hydroxide/Mg Hydroxide (Magnesium Hydrox/Alum Hydrox 30 Ml Oral.Susp) 30 ml PO Q6H PRN PRN Reason: Heartburn/Nausea Aripiprazole (Aripiprazole 20 Mg Tablet) 20 mg PO BEDTIME [facility] Last Admin: 06/03/24 22:49 Dose: Not Given Benztropine Mesylate (Benztropine Mesylate 0.5 Mg Tablet) 0.5 mg PO BEDTIME [facility] Last Admin: 06/03/24 22:49 Dose: Not Given Bisacodyl (Bisacodyl 10 Mg Supp.Rect) 10 mg [place] DAILY PRN PRN Reason: Constipation Divalproex Sodium (Divalproex Sodium Er 250 Mg Tab.Er.24h) 750 mg PO BEDTIME [facility] Last Admin: 06/03/24 22:49 Dose: Not Given Docusate Sodium (Docusate Sodium 100 Mg Capsule) 200 mg PO BID [facility] Last Admin: 06/04/24 08:05 Dose: 200 mg Hydroxyzine HCl (Hydroxyzine Hcl 25 Mg Tablet) 25 mg PO Q6H PRN PRN Reason: Anxiety Last Admin: 06/01/24 12:14 Dose: 25 mg Lisinopril (Lisinopril 2.5 Mg Tablet) 2.5 mg PO DAILY [facility]; Protocol Last Admin: 06/04/24 08:06 Dose: 2.5 mg Magnesium Hydroxide (Milk Of Magnesia 30 Ml Oral.Susp) 30 ml PO DAILY PRN PRN Reason: Constipation Last Admin: 05/25/24 09:57 Dose: 30 ml Olanzapine (Olanzapine Odt 10 Mg Tab.Rapdis) 10 mg TRANSLINGU Q6H PRN PRN Reason: agitation Ondansetron HCl (Ondansetron Odt 4 Mg Tab.Rapdis) 8 mg TRANSLINGU Q8H PRN PRN Reason: Nausea and Vomiting Last Admin: 05/26/24 11:02 Dose: 8 mg Polyethylene Glycol (Polyethylene Glycol 3350 17 Gm Powd.Pack) 17 gm PO DAILY PRN PRN Reason: constipation Last Admin: 05/15/24 17:41 Dose: 17 gm Quetiapine Fumarate (Quetiapine Fumarate 200 Mg Tablet) 200 mg PO BEDTIME [facility] Last Admin: 06/03/24 22:49 Dose: Not Given Sodium Biphosphate/Sodium Phosphate (Sodium Phosphate,[place]-Dibasic 133 Ml Enema) 133 ml [place] ONCE PRN PRN Reason: severe constipation Last Admin: 05/13/24 18:19 Dose: 133 ml Trazodone HCl (Trazodone Hcl 50 Mg Tablet) 50 mg PO BEDTIME MRX1 PRN PRN Reason: Insomnia Last Admin: 05/31/24 20:17 Dose: 50 mg Allergies Allergies Allergy/AdvReac Type Severity Reaction Status Date / Time No Known Allergies Allergy Verified 05/04/24 15:04 Assessment & Plan Assessment & Plan (1) Bipolar 1 disorder: Status: Acute Code(s): F31.9 - Bipolar disorder, unspecified (2) Dementia: Status: Acute Code(s): F03.90 - Unspecified dementia, unspecified severity, without behavioral disturbance, psychotic disturbance, mood disturbance, and anxiety Plan The patient is an elderly [place] female, bilingual, with a past history of bipolar disorder and a past history of catatonia with several admissions into the hospital, recently admitted twice in the last 60 days for a presentation of selena. Currently now she has manic symptoms. Plan 1. The patient had been refusing for 3 days in a row Seroquel 200 mg p.o. q.h.s., Abilify 20 mg p.o. q.h.s. and Depakote. We try to discuss with the family the possibility Section 7 and 8 or information of healthcare proxy. 2. Continue 15 minute checks. Reason for continued inpatient stay Substantial Risk for: inability to function, rapid decompensation and med/psych decompensation Time Spent With Patient Time: Total time managing care of this patient today __20__ minutes.
[2024-06-04] MEDS: hydrOXYzine HCL 25 MG TABLET PO (11:34)
[2024-06-04] MEDS: OLANZapine ODT 10 MG TAB.RAPDIS TRANSLINGU (14:26)
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
[2024-06-04] MEDS: OLANZapine 10 MG VIAL IM (15:35)
[2024-06-04] MEDS: LORazepam 2 MG/ML VIAL IM (15:35)
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
[2024-06-04 20:00] VITALS: BP 106/69; PULSE 84; RESP 18; TEMP 36.7; O2SAT 94
[2024-06-05 08:50] VITALS: BP 115/61; PULSE 103; RESP 16; TEMP 36.6; O2SAT 97
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
[2024-06-05] MEDS: OLANZapine 10 MG VIAL IM (17:09)
[2024-06-05] MEDS: LORazepam 2 MG/ML VIAL IM (17:09)
[2024-06-05] MEDS: ARIPiprazole ER 400 MG SUSER.SYR IM (17:10)
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
[2024-06-05 20:00] VITALS: BP 115/60; PULSE 98; RESP 18; TEMP 36.3; O2SAT 97
[2024-06-05] MEDS: Divalproex Sodium ER 250 MG TAB.ER.24H 750 MG PO (22:11)
[2024-06-05] MEDS: QUEtiapine Fumarate 200 MG TABLET PO (22:12)
[2024-06-05] MEDS: Docusate Sodium 100 MG CAPSULE 200 MG PO (22:13)
[2024-06-05] MEDS: ARIPiprazole 20 MG TABLET PO (22:14)
[2024-06-06] MEDS: hydrOXYzine HCL 25 MG TABLET PO (01:47)
[2024-06-06] MEDS: traZODone HCL 50 MG TABLET PO (01:47)
[2024-06-06 08:00] VITALS: BP 127/81; PULSE 100; RESP 18; TEMP 36; O2SAT 98
[2024-06-06] MEDS: lisinopriL 2.5 MG TABLET PO (08:42)
--- NOTE | 2024-06-06 10:51 | P.PNPSI_ITS ---
Subjective Subjective Date of Service: 06/06/24 Reason For Visit: Psychosis Subjective Notes: Conditional Voluntary Interim History: The nursing staff reported the patient had been very labile, difficult to redirect she needed IM times for the last 3 days daily in the afternoon. Today she had to have a physical hold for 1 minute since she was very disruptive. Yesterday we gave her Abilify Maintena 400 mg IM monthly. She slept only 3 hours and she had been exit seeking all the time. The occupational therapist reported after the IM in the afternoon yesterday she was slightly better. On interview the patient remains disorganized stating that she wants to live. We are going to discuss the decompensation with her affirmed healthcare proxies. Mental Status Exam Mental Status Exam Patient Appearance: Unkempt Patient Orientation: Person and Situation Level of Consciousness: Disoriented and Restless Patient Behavior: Passive, Restless and Belligerent Mood Description: Withdrawn Affect Description: Labile Patient Cognition Impaired: Yes Ability to Follow Directions: Poor Speech Pattern: Impoverished and Rapid Hallucinations: None Delusions: Paranoid Ideation and Ideas of Reference Thought Process: Distracted and Confusion Thought Content: positive for [place], positive for Poverty of Content and positive for Thought Blocking Judgement: Poor Diagnostics Vital Signs (24Hr): Vital Signs - 24 hr 06/05/24 20:00 06/06/24 08:00 Temperature 97.3 F 96.8 F Pulse Rate 98 100 Respiratory Rate 18 18 Blood Pressure 115/60 127/81 Pulse Oximetry 97 98 Oxygen Delivery Method Room Air Room Air BMI result Body Mass Index 24.1 Labs 05/04/24 15:03 05/22/24 08:03 Imaging Radiology Impressions: ITS Impressions Head CT 05/16/24 14:30 IMPRESSION: There are no acute bleeds or territorial infarcts. No masses are demonstrated. Brain parenchymal attenuation is unremarkable. Medications Medications Current Medications Acetaminophen (Acetaminophen 325 Mg Tablet) 650 mg PO Q6H PRN PRN Reason: Headache/Pain Mild Scale (1-3) Last Admin: 05/18/24 20:51 Dose: 650 mg Al Hydroxide/Mg Hydroxide (Magnesium Hydrox/Alum Hydrox 30 Ml Oral.Susp) 30 ml PO Q6H PRN PRN Reason: Heartburn/Nausea Aripiprazole (Aripiprazole 20 Mg Tablet) 20 mg PO BEDTIME SALLY Last Admin: 06/05/24 22:14 Dose: 20 mg Benztropine Mesylate (Benztropine Mesylate 0.5 Mg Tablet) 0.5 mg PO BEDTIME SALLY Last Admin: 06/05/24 22:15 Dose: Not Given Bisacodyl (Bisacodyl 10 Mg Supp.Rect) 10 mg [place] DAILY PRN PRN Reason: Constipation Divalproex Sodium (Divalproex Sodium Er 250 Mg Tab.Er.24h) 750 mg PO BEDTIME SALLY Last Admin: 06/05/24 22:11 Dose: 500 mg Docusate Sodium (Docusate Sodium 100 Mg Capsule) 200 mg PO BID SALLY Last Admin: 06/06/24 08:43 Dose: Not Given Hydroxyzine HCl (Hydroxyzine Hcl 25 Mg Tablet) 25 mg PO Q6H PRN PRN Reason: Anxiety Last Admin: 06/06/24 01:47 Dose: 25 mg Lisinopril (Lisinopril 2.5 Mg Tablet) 2.5 mg PO DAILY [facility]; Protocol Last Admin: 06/06/24 08:42 Dose: 2.5 mg Magnesium Hydroxide (Milk Of Magnesia 30 Ml Oral.Susp) 30 ml PO DAILY PRN PRN Reason: Constipation Last Admin: 05/25/24 09:57 Dose: 30 ml Olanzapine (Olanzapine Odt 10 Mg Tab.Rapdis) 10 mg TRANSLINGU Q6H PRN PRN Reason: agitation Last Admin: 06/04/24 14:26 Dose: 10 mg Olanzapine (Olanzapine 10 Mg Vial) 10 mg IM BEDTIME PRN PRN Reason: refusal of Abilify Ondansetron HCl (Ondansetron Odt 4 Mg Tab.Rapdis) 8 mg TRANSLINGU Q8H PRN PRN Reason: Nausea and Vomiting Last Admin: 05/26/24 11:02 Dose: 8 mg Polyethylene Glycol (Polyethylene Glycol 3350 17 Gm Powd.Pack) 17 gm PO DAILY PRN PRN Reason: constipation Last Admin: 05/15/24 17:41 Dose: 17 gm Quetiapine Fumarate (Quetiapine Fumarate 200 Mg Tablet) 200 mg PO BEDTIME SALLY Last Admin: 06/05/24 22:12 Dose: 200 mg Sodium Biphosphate/Sodium Phosphate (Sodium Phosphate,[place]-Dibasic 133 Ml Enema) 133 ml MO ONCE PRN PRN Reason: severe constipation Last Admin: 05/13/24 18:19 Dose: 133 ml Trazodone HCl (Trazodone Hcl 50 Mg Tablet) 50 mg PO BEDTIME MRX1 PRN PRN Reason: Insomnia Last Admin: 06/06/24 01:47 Dose: 50 mg Allergies Allergies Allergy/AdvReac Type Severity Reaction Status Date / Time No Known Allergies Allergy Verified 05/04/24 15:04 Assessment & Plan Assessment & Plan (1) Bipolar 1 disorder: Status: Acute Code(s): F31.9 - Bipolar disorder, unspecified (2) Dementia: Status: Acute Code(s): F03.90 - Unspecified dementia, unspecified severity, without behavioral disturbance, psychotic disturbance, mood disturbance, and anxiety Plan The patient is an elderly Bel[place]ian female, bilingual, with a past history of bipolar disorder and a past history of catatonia with several admissions into the hospital, recently admitted twice in the last 60 days for a presentation of selena. Currently now she has manic symptoms. Plan 1. The patient had been refusing for 3 days in a row Seroquel 200 mg p.o. q.h.s., Abilify 20 mg p.o. q.h.s. and Depakote. We try to discuss with the family the possibility Section 7 and 8 or information of healthcare proxy. Eventually we found out that the patient has an affirmed healthcare proxy and we discussed the case with her children on June 05. 2. Continue 15 minute checks. 3. Abilify Maintena 400 mg IM ordered on June 05. 4. Zyprexa 10 mg IM p.r.n. refusal of Abilify p.o. at night. The patient has an affirmed healthcare proxy and she has authorized this treatment. Reason for continued inpatient stay Substantial Risk for: inability to function, rapid decompensation and med/psych decompensation Time Spent With Patient Time: Total time managing care of this patient today __20__ minutes.
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
[2024-06-06] MEDS: Haloperidol Lactate 5 MG/ML VIAL 10 MG IM (20:00)
[2024-06-06] MEDS: diphenhydrAMINE HCL 50 MG/ML VIAL IM (20:00)
[2024-06-06] MEDS: LORazepam 2 MG/ML VIAL IM (21:00)
--- NOTE | 2024-06-07 01:16 | PM.EVENT ---
Event Note Date of Service: 06/07/24 Event Note: patient seen and examined, calm, alert, normal respirations Time Spent With Patient Time: Total time managing care of this patient today ____ minutes.
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
[2024-06-07] MEDS: diphenhydrAMINE HCL 50 MG/ML VIAL IM (08:35)
[2024-06-07] MEDS: LORazepam 2 MG/ML VIAL IM (08:35)
[2024-06-07] MEDS: Haloperidol Lactate 5 MG/ML VIAL 10 MG IM (08:35)
[2024-06-07 09:06] VITALS: BMI 23.0
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
--- NOTE | 2024-06-07 16:08 | P.PNPSI_ITS ---
Subjective Subjective Date of Service: 06/07/24 Reason For Visit: Psychosis Subjective Notes: Conditional Voluntary Interim History: The nursing staff reported the patient had been exit seeking, she tried to elope today in the morning and needed to be medicated IM. Also she was medicated IM at night yesterday and on the evening of yesterday. She receive Abilify Maintena a few days ago still grossly psychotic. Mental Status Exam Mental Status Exam Patient Appearance: Appropriate Patient Orientation: Person and Situation Level of Consciousness: Awake Patient Behavior: Guarded and Passive Mood Description: Withdrawn and Blunted Affect Description: Withdrawn and Labile Patient Cognition Impaired: Yes Ability to Follow Directions: Fair Speech Pattern: Clear Hallucinations: Auditory Delusions: Paranoid Ideation and Ideas of Reference Thought Process: Distracted and Slowed Thinking Thought Content: positive for [place] and positive for Poverty of Content Judgement: Poor Diagnostics Vital Signs (24Hr): BMI result Body Mass Index 23.0 Labs 05/04/24 15:03 05/22/24 08:03 Imaging Radiology Impressions: ITS Impressions Head CT 05/16/24 14:30 IMPRESSION: There are no acute bleeds or territorial infarcts. No masses are demonstrated. Brain parenchymal attenuation is unremarkable. Medications Medications Current Medications Acetaminophen (Acetaminophen 325 Mg Tablet) 650 mg PO Q6H PRN PRN Reason: Headache/Pain Mild Scale (1-3) Last Admin: 05/18/24 20:51 Dose: 650 mg Al Hydroxide/Mg Hydroxide (Magnesium Hydrox/Alum Hydrox 30 Ml Oral.Susp) 30 ml PO Q6H PRN PRN Reason: Heartburn/Nausea Aripiprazole (Aripiprazole 20 Mg Tablet) 20 mg PO BEDTIME [facility] Last Admin: 06/06/24 22:10 Dose: Not Given Benztropine Mesylate (Benztropine Mesylate 0.5 Mg Tablet) 0.5 mg PO BEDTIME [facility] Last Admin: 06/06/24 22:11 Dose: Not Given Bisacodyl (Bisacodyl 10 Mg Supp.Rect) 10 mg [place] DAILY PRN PRN Reason: Constipation Divalproex Sodium (Divalproex Sodium Er 250 Mg Tab.Er.24h) 750 mg PO BEDTIME [facility] Last Admin: 06/06/24 22:12 Dose: Not Given Docusate Sodium (Docusate Sodium 100 Mg Capsule) 200 mg PO BID [facility] Last Admin: 06/07/24 11:40 Dose: Not Given Hydroxyzine HCl (Hydroxyzine Hcl 25 Mg Tablet) 25 mg PO Q6H PRN PRN Reason: Anxiety Last Admin: 06/06/24 01:47 Dose: 25 mg Lisinopril (Lisinopril 2.5 Mg Tablet) 2.5 mg PO DAILY [facility]; Protocol Last Admin: 06/07/24 11:40 Dose: Not Given Magnesium Hydroxide (Milk Of Magnesia 30 Ml Oral.Susp) 30 ml PO DAILY PRN PRN Reason: Constipation Last Admin: 05/25/24 09:57 Dose: 30 ml Olanzapine (Olanzapine Odt 10 Mg Tab.Rapdis) 10 mg TRANSLINGU Q6H PRN PRN Reason: agitation Last Admin: 06/04/24 14:26 Dose: 10 mg Olanzapine (Olanzapine 10 Mg Vial) 10 mg IM BEDTIME PRN PRN Reason: refusal of Abilify Ondansetron HCl (Ondansetron Odt 4 Mg Tab.Rapdis) 8 mg TRANSLINGU Q8H PRN PRN Reason: Nausea and Vomiting Last Admin: 05/26/24 11:02 Dose: 8 mg Polyethylene Glycol (Polyethylene Glycol 3350 17 Gm Powd.Pack) 17 gm PO DAILY PRN PRN Reason: constipation Last Admin: 05/15/24 17:41 Dose: 17 gm Quetiapine Fumarate (Quetiapine Fumarate 200 Mg Tablet) 200 mg PO BEDTIME SALLY Last Admin: 06/06/24 22:12 Dose: Not Given Sodium Biphosphate/Sodium Phosphate (Sodium Phosphate,[place]-Dibasic 133 Ml Enema) 133 ml [place] ONCE PRN PRN Reason: severe constipation Last Admin: 05/13/24 18:19 Dose: 133 ml Trazodone HCl (Trazodone Hcl 50 Mg Tablet) 50 mg PO BEDTIME MRX1 PRN PRN Reason: Insomnia Last Admin: 06/06/24 01:47 Dose: 50 mg Allergies Allergies Allergy/AdvReac Type Severity Reaction Status Date / Time No Known Allergies Allergy Verified 05/04/24 15:04 Assessment & Plan Assessment & Plan (1) Bipolar 1 disorder: Status: Acute Code(s): F31.9 - Bipolar disorder, unspecified (2) Dementia: Status: Acute Code(s): F03.90 - Unspecified dementia, unspecified severity, without behavioral disturbance, psychotic disturbance, mood disturbance, and anxiety Plan The patient is an elderly Latvian female, bilingual, with a past history of bipolar disorder and a past history of catatonia with several admissions into the hospital, recently admitted twice in the last 60 days for a presentation of selena. Currently now she has manic symptoms. Plan 1. The patient had been refusing for 3 days in a row Seroquel 200 mg p.o. q.h.s., Abilify 20 mg p.o. q.h.s. and Depakote. We try to discuss with the family the possibility Section 7 and 8 or information of healthcare proxy. Eventually we found out that the patient has an affirmed healthcare proxy and we discussed the case with her children on June 05. 2. Continue 15 minute checks. 3. Abilify Maintena 400 mg IM ordered on June 05. 4. Zyprexa 10 mg IM p.r.n. refusal of Abilify p.o. at night. The patient has an affirmed healthcare proxy and she has authorized this treatment. Reason for continued inpatient stay Substantial Risk for: inability to function, rapid decompensation and med/psych decompensation Time Spent With Patient Time: Total time managing care of this patient today __20__ minutes.
[2024-06-07] MEDS: Divalproex Sodium ER 250 MG TAB.ER.24H 750 MG PO (19:54)
[2024-06-07 20:00] VITALS: BP 129/83; PULSE 93; RESP 18; TEMP 37.6; O2SAT 98
[2024-06-07] MEDS: OLANZapine 10 MG VIAL IM (20:09)
--- NOTE | 2024-06-07 23:48 | PC.NURSE ---
Addendum entered by Ced Amaral RN 06/08/24 00:34: please note that the dosage of olanzapine was 10 mg im not 20 mg as previously documented. Original Note: Ofelia was seated in sensory room talking with pt observer. she was presented with her night time medications prior to opening packaging. pt was suspicious and examined packaged medications. the dynamics of each medication were reviewed. Ofelia verbalizes a basic understanding of the purpose and effects of each medication. she recognizes her depakote and readily takes the 3 (250 mg) pills. next she was presented with the scheduled abilify tablet. unfortunately she immediately became upset and outraged and stated that she is not taking any more medications. she stood up and pounded her fists onto table. again she was screaming im not taking any more medicine. at this time, Ofelia grabbed a bottled water and poured the contents all over myself. as per affirmed health care proxy olanzapine 20 mg im was administered to right gluteal area. subsequently, pt was escorted to her room accompanied by her patient observer. soon after laying in her bed, Ofelia is somnolent. 1 to [address] will continue to monitor.
[2024-06-08 08:00] VITALS: RESP 18
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
--- NOTE | 2024-06-08 18:01 | PC.NURSE ---
Addendum entered by Osmin Hamilton RN 06/08/24 19:29: Thad (son) notified, he came to visit Ofelia today at 1800. Original Note: Fixed Assets Accountant heard Ofelia yelling, when observed she was leaning toward her Patient Flue Cleaner (PSA) yelling at her, as screenplay writer walked towards her she grabbed the PSA's glasses and jacket, screenplay writer intervened called her by her last name in Korean Candice James, she let go of the PSA, responded to staff redirection. PSA left the floor, supervisor warping department (Brigid) notified.
[2024-06-08 20:00] VITALS: BP 138/78; PULSE 99; RESP 16; TEMP 36.9; O2SAT 95
[2024-06-08] MEDS: OLANZapine 10 MG VIAL IM (21:04)
[2024-06-09 08:00] VITALS: BP 127/68; PULSE 87; RESP 15; TEMP 36.7; O2SAT 97
[2024-06-09] MEDS: Docusate Sodium 100 MG CAPSULE 200 MG PO (08:31)
[2024-06-09] MEDS: lisinopriL 2.5 MG TABLET PO (08:31)
--- NOTE | 2024-06-09 08:51 | P.PNPSI_ITS ---
Subjective Subjective Date of Service: 06/09/24 Reason For Visit: Psychosis Subjective Notes: Conditional Voluntary Interim History: The nursing staff reported the patient refused her medications in the morning and she would not agitated. She responded to redirection but in the evening yesterday she threw water on the floor. She received her Zyprexa IM backup and she slept only 2 hours. On interview the patient had been pacing in the hallway very confused and with unpredictable behavior. Mental Status Exam Mental Status Exam Patient Appearance: Unkempt Patient Orientation: Person and Situation Level of Consciousness: Awake and Appropriate Patient Behavior: Guarded and Passive Mood Description: Blunted Affect Description: Labile Patient Cognition Impaired: Yes Ability to Follow Directions: Good Speech Pattern: Impoverished Hallucinations: None Delusions: Paranoid Ideation and Ideas of Reference Thought Process: Distracted and Slowed Thinking Thought Content: positive for [place] and positive for Poverty of Content Judgement: Poor Diagnostics Vital Signs (24Hr): Vital Signs - 24 hr 06/08/24 20:00 06/09/24 08:00 Temperature 98.4 F 98.1 F Pulse Rate 99 87 Respiratory Rate 16 15 Blood Pressure 138/78 127/68 Pulse Oximetry 95 97 Oxygen Delivery Method Room Air Room Air BMI result Body Mass Index 23.0 Labs 05/04/24 15:03 05/22/24 08:03 Imaging Radiology Impressions: ITS Impressions Head CT 05/16/24 14:30 IMPRESSION: There are no acute bleeds or territorial infarcts. No masses are demonstrated. Brain parenchymal attenuation is unremarkable. Medications Medications Current Medications Acetaminophen (Acetaminophen 325 Mg Tablet) 650 mg PO Q6H PRN PRN Reason: Headache/Pain Mild Scale (1-3) Last Admin: 05/18/24 20:51 Dose: 650 mg Al Hydroxide/Mg Hydroxide (Magnesium Hydrox/Alum Hydrox 30 Ml Oral.Susp) 30 ml PO Q6H PRN PRN Reason: Heartburn/Nausea Aripiprazole (Aripiprazole 20 Mg Tablet) 20 mg PO BEDTIME SALLY Last Admin: 06/08/24 21:04 Dose: Not Given Benztropine Mesylate (Benztropine Mesylate 0.5 Mg Tablet) 0.5 mg PO BEDTIME SALLY Last Admin: 06/08/24 21:04 Dose: Not Given Bisacodyl (Bisacodyl 10 Mg Supp.Rect) 10 mg [place] DAILY PRN PRN Reason: Constipation Divalproex Sodium (Divalproex Sodium Er 250 Mg Tab.Er.24h) 750 mg PO BEDTIME SALLY Last Admin: 06/08/24 21:04 Dose: Not Given Docusate Sodium (Docusate Sodium 100 Mg Capsule) 200 mg PO BID SALLY Last Admin: 06/09/24 08:31 Dose: 200 mg Hydroxyzine HCl (Hydroxyzine Hcl 25 Mg Tablet) 25 mg PO Q6H PRN PRN Reason: Anxiety Last Admin: 06/06/24 01:47 Dose: 25 mg Lisinopril (Lisinopril 2.5 Mg Tablet) 2.5 mg PO DAILY SALLY; Protocol Last Admin: 06/09/24 08:31 Dose: 2.5 mg Magnesium Hydroxide (Milk Of Magnesia 30 Ml Oral.Susp) 30 ml PO DAILY PRN PRN Reason: Constipation Last Admin: 05/25/24 09:57 Dose: 30 ml Olanzapine (Olanzapine Odt 10 Mg Tab.Rapdis) 10 mg TRANSLINGU Q6H PRN PRN Reason: agitation Last Admin: 06/04/24 14:26 Dose: 10 mg Olanzapine (Olanzapine 10 Mg Vial) 10 mg IM BEDTIME PRN PRN Reason: refusal of Abilify Last Admin: 06/08/24 21:04 Dose: 10 mg Ondansetron HCl (Ondansetron Odt 4 Mg Tab.Rapdis) 8 mg TRANSLINGU Q8H PRN PRN Reason: Nausea and Vomiting Last Admin: 05/26/24 11:02 Dose: 8 mg Polyethylene Glycol (Polyethylene Glycol 3350 17 Gm Powd.Pack) 17 gm PO DAILY PRN PRN Reason: constipation Last Admin: 05/15/24 17:41 Dose: 17 gm Quetiapine Fumarate (Quetiapine Fumarate 200 Mg Tablet) 200 mg PO BEDTIME SALLY Last Admin: 06/08/24 21:07 Dose: Not Given Sodium Biphosphate/Sodium Phosphate (Sodium Phosphate,[place]-Dibasic 133 Ml Enema) 133 ml [place] ONCE PRN PRN Reason: severe constipation Last Admin: 05/13/24 18:19 Dose: 133 ml Trazodone HCl (Trazodone Hcl 50 Mg Tablet) 50 mg PO BEDTIME MRX1 PRN PRN Reason: Insomnia Last Admin: 06/06/24 01:47 Dose: 50 mg Allergies Allergies Allergy/AdvReac Type Severity Reaction Status Date / Time No Known Allergies Allergy Verified 05/04/24 15:04 Assessment & Plan Assessment & Plan (1) Bipolar 1 disorder: Status: Acute Code(s): F31.9 - Bipolar disorder, unspecified (2) Dementia: Status: Acute Code(s): F03.90 - Unspecified dementia, unspecified severity, without behavioral disturbance, psychotic disturbance, mood disturbance, and anxiety Plan The patient is an elderly [place]ian female, bilingual, with a past history of bipolar disorder and a past history of catatonia with several admissions into the hospital, recently admitted twice in the last 60 days for a presentation of selena. Currently now she has manic symptoms. Plan 1. The patient had been refusing for 3 days in a row Seroquel 200 mg p.o. q.h.s., Abilify 20 mg p.o. q.h.s. and Depakote. We try to discuss with the family the possibility Section 7 and 8 or information of healthcare proxy. Eventually we found out that the patient has an affirmed healthcare proxy and we discussed the case with her children on June 05. 2. Continue 15 minute checks. 3. Abilify Maintena 400 mg IM ordered on June 05. 4. Zyprexa 10 mg IM p.r.n. refusal of Abilify p.o. at night. The patient has an affirmed healthcare proxy and she has authorized this treatment. 5. We are adding Invega 3 mg p.o. q.h.s. on top of Abilify on June 08. Reason for continued inpatient stay Substantial Risk for: inability to function, rapid decompensation and med/psych decompensation Time Spent With Patient Time: Total time managing care of this patient today __20__ minutes.
[2024-06-09] MEDS: hydrOXYzine HCL 25 MG TABLET PO (11:25)
[2024-06-09] MEDS: OLANZapine ODT 10 MG TAB.RAPDIS TRANSLINGU (11:25)
[2024-06-09] MEDS: LORazepam 1 MG TABLET 2 MG PO (13:59)
[2024-06-09 20:00] VITALS: BP 122/73; PULSE 95; RESP 18; TEMP 36.9; O2SAT 96
[2024-06-09] MEDS: OLANZapine 10 MG VIAL IM (21:24)
--- NOTE | 2024-06-10 08:26 | HO.PSYCHPN ---
Subjective Subjective Date of Service: 06/10/24 Reason For Visit: Psychosis Subjective Notes: Conditional Voluntary Healthcare Proxy: Yes (Affirmed healthcare proxy by court) Interim History: The nursing staff reported the patient slept only 1 hour come. She received her Zyprexa IM back at night since she refused p.o.. She was seen exit seeking, on one-to-one since she is very disorganized and psychotic. On interview the patient looks slightly better but still grossly psychotic TODAY IN THE MORNING SHE REFUSED ALL HER MEDICATIONS. She was more aggressive and needed to be medicated we went times Zydis in the morning. Sedated later on. Mental Status Exam Mental Status Exam Patient Appearance: Inappropriate Patient Orientation: Person and Situation Level of Consciousness: Awake Patient Behavior: Guarded and Passive Mood Description: Withdrawn Affect Description: Labile Patient Cognition Impaired: Yes Ability to Follow Directions: Fair Speech Pattern: Clear Hallucinations: Auditory Delusions: Paranoid Ideation Thought Process: Illogical and Distracted Thought Content: positive for [place] and positive for Poverty of Content Judgement: Poor Diagnostics Vital Signs (24Hr): Vital Signs - 24 hr 06/09/24 20:00 Temperature 98.5 F Pulse Rate 95 Respiratory Rate 18 Blood Pressure 122/73 Pulse Oximetry 96 Oxygen Delivery Method Room Air BMI result Body Mass Index 23.0 Labs 05/04/24 15:03 05/22/24 08:03 Imaging Radiology Impressions: ITS Impressions Head CT 05/16/24 14:30 IMPRESSION: There are no acute bleeds or territorial infarcts. No masses are demonstrated. Brain parenchymal attenuation is unremarkable. Medications Medications Current Medications Acetaminophen (Acetaminophen 325 Mg Tablet) 650 mg PO Q6H PRN PRN Reason: Headache/Pain Mild Scale (1-3) Last Admin: 05/18/24 20:51 Dose: 650 mg Al Hydroxide/Mg Hydroxide (Magnesium Hydrox/Alum Hydrox 30 Ml Oral.Susp) 30 ml PO Q6H PRN PRN Reason: Heartburn/Nausea Aripiprazole (Aripiprazole 20 Mg Tablet) 20 mg PO BEDTIME SALLY Last Admin: 06/09/24 21:25 Dose: Not Given Benztropine Mesylate (Benztropine Mesylate 0.5 Mg Tablet) 0.5 mg PO BEDTIME SALLY Last Admin: 06/09/24 21:25 Dose: Not Given Bisacodyl (Bisacodyl 10 Mg Supp.Rect) 10 mg MD DAILY PRN PRN Reason: Constipation Divalproex Sodium (Divalproex Sodium Er 250 Mg Tab.Er.24h) 750 mg PO BEDTIME SALLY Last Admin: 06/09/24 21:25 Dose: Not Given Docusate Sodium (Docusate Sodium 100 Mg Capsule) 200 mg PO BID SALLY Last Admin: 06/09/24 21:25 Dose: Not Given Hydroxyzine HCl (Hydroxyzine Hcl 25 Mg Tablet) 25 mg PO Q6H PRN PRN Reason: Anxiety Last Admin: 06/09/24 11:25 Dose: 25 mg Lisinopril (Lisinopril 2.5 Mg Tablet) 2.5 mg PO DAILY SALLY; Protocol Last Admin: 06/09/24 08:31 Dose: 2.5 mg Magnesium Hydroxide (Milk Of Magnesia 30 Ml Oral.Susp) 30 ml PO DAILY PRN PRN Reason: Constipation Last Admin: 05/25/24 09:57 Dose: 30 ml Olanzapine (Olanzapine Odt 10 Mg Tab.Rapdis) 10 mg TRANSLINGU Q6H PRN PRN Reason: agitation Last Admin: 06/09/24 11:25 Dose: 10 mg Olanzapine (Olanzapine 10 Mg Vial) 10 mg IM BEDTIME PRN PRN Reason: refusal of Abilify Last Admin: 06/09/24 21:24 Dose: 10 mg Ondansetron HCl (Ondansetron Odt 4 Mg Tab.Rapdis) 8 mg TRANSLINGU Q8H PRN PRN Reason: Nausea and Vomiting Last Admin: 05/26/24 11:02 Dose: 8 mg Polyethylene Glycol (Polyethylene Glycol 3350 17 Gm Powd.Pack) 17 gm PO DAILY PRN PRN Reason: constipation Last Admin: 05/15/24 17:41 Dose: 17 gm Quetiapine Fumarate (Quetiapine Fumarate 200 Mg Tablet) 200 mg PO BEDTIME SALLY Last Admin: 06/09/24 21:25 Dose: Not Given Sodium Biphosphate/Sodium Phosphate (Sodium Phosphate,[place]-Dibasic 133 Ml Enema) 133 ml MD ONCE PRN PRN Reason: severe constipation Last Admin: 05/13/24 18:19 Dose: 133 ml Trazodone HCl (Trazodone Hcl 50 Mg Tablet) 50 mg PO BEDTIME MRX1 PRN PRN Reason: Insomnia Last Admin: 06/06/24 01:47 Dose: 50 mg Allergies Allergies Allergy/AdvReac Type Severity Reaction Status Date / Time No Known Allergies Allergy Verified 05/04/24 15:04 Assessment & Plan Assessment & Plan (1) Bipolar 1 disorder: Status: Acute Code(s): F31.9 - Bipolar disorder, unspecified (2) Dementia: Status: Acute Code(s): F03.90 - Unspecified dementia, unspecified severity, without behavioral disturbance, psychotic disturbance, mood disturbance, and anxiety Plan The patient is an elderly [place] female, bilingual, with a past history of bipolar disorder and a past history of catatonia with several admissions into the hospital, recently admitted twice in the last 60 days for a presentation of selena. Currently now she has manic symptoms. Plan 1. The patient had been refusing for 3 days in a row Seroquel 200 mg p.o. q.h.s., Abilify 20 mg p.o. q.h.s. and Depakote. We try to discuss with the family the possibility Section 7 and 8 or information of healthcare proxy. Eventually we found out that the patient has an affirmed healthcare proxy and we discussed the case with her children on June 05. 2. Continue 15 minute checks. 3. Abilify Maintena 400 mg IM ordered on June 05. 4. Zyprexa 10 mg IM p.r.n. refusal of Abilify p.o. at night. The patient has an affirmed healthcare proxy and she has authorized this treatment. 5. We are adding Invega 3 mg p.o. q.h.s. on top of Abilify on June 08. Reason for continued inpatient stay Substantial Risk for: inability to function, rapid decompensation and med/psych decompensation Time Spent With Patient Time: Total time managing care of this patient today __20__ minutes.
[2024-06-10 08:59] VITALS: BP 115/71; PULSE 103; RESP 18; TEMP 36.4; O2SAT 95
[2024-06-10] MEDS: lisinopriL 2.5 MG TABLET PO (09:05)
[2024-06-10] MEDS: Docusate Sodium 100 MG CAPSULE 200 MG PO (09:06)
[2024-06-10] MEDS: OLANZapine ODT 10 MG TAB.RAPDIS TRANSLINGU ×2 (09:07→09:09)
[2024-06-10] MEDS: LORazepam 1 MG TABLET 2 MG PO (09:09)
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
[2024-06-10] MEDS: OLANZapine 10 MG VIAL IM (19:30)
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
[2024-06-10 21:07] VITALS: BP 121/75; PULSE 103; RESP 18; TEMP 36.8; O2SAT 96
[2024-06-11] MEDS: OLANZapine ODT 10 MG TAB.RAPDIS TRANSLINGU ×2 (03:35→11:19)
[2024-06-11 08:00] VITALS: BP 136/76; PULSE 87; RESP 18; TEMP 36.3; O2SAT 97
[2024-06-11] MEDS: lisinopriL 2.5 MG TABLET PO (11:19)
[2024-06-11] MEDS: Docusate Sodium 100 MG CAPSULE 200 MG PO ×2 (11:19→20:41)
--- NOTE | 2024-06-11 13:14 | P.PNPSI_ITS ---
Subjective Subjective Date of Service: 06/11/24 Reason For Visit: Psychosis Subjective Notes: Section 7 and Section 8 Interim History: The nursing staff reported the patient had been agitated she got Zydis twice yesterday. She had been receiving several PRNs of Zyprexa. On interview in the afternoon the patient looks confused internally preoccupied less agitated than before. Mental Status Exam Mental Status Exam Patient Appearance: Unkempt Patient Orientation: Person and Situation Level of Consciousness: Awake and Appropriate Patient Behavior: Guarded and Passive Mood Description: Blunted Affect Description: Calm Patient Cognition Impaired: Yes Ability to Follow Directions: Good Speech Pattern: Clear Hallucinations: Auditory Delusions: Paranoid Ideation and Ideas of Reference Thought Process: Distracted and Slowed Thinking Thought Content: positive for Poverty of Content, positive for Thought Blocking and positive for Disorganized Judgement: Poor Diagnostics Vital Signs (24Hr): Vital Signs - 24 hr 06/10/24 21:07 06/11/24 08:00 Temperature 98.2 F 97.4 F Pulse Rate 103 H 87 Respiratory Rate 18 18 Blood Pressure 121/75 136/76 Pulse Oximetry 96 97 Oxygen Delivery Method Room Air Room Air BMI result Body Mass Index 23.0 Labs 05/04/24 15:03 05/22/24 08:03 Imaging Radiology Impressions: ITS Impressions Head CT 05/16/24 14:30 IMPRESSION: There are no acute bleeds or territorial infarcts. No masses are demonstrated. Brain parenchymal attenuation is unremarkable. Medications Medications Current Medications Acetaminophen (Acetaminophen 325 Mg Tablet) 650 mg PO Q6H PRN PRN Reason: Headache/Pain Mild Scale (1-3) Last Admin: 05/18/24 20:51 Dose: 650 mg Al Hydroxide/Mg Hydroxide (Magnesium Hydrox/Alum Hydrox 30 Ml Oral.Susp) 30 ml PO Q6H PRN PRN Reason: Heartburn/Nausea Aripiprazole (Aripiprazole 20 Mg Tablet) 20 mg PO BEDTIME SALLY Last Admin: 06/10/24 19:29 Dose: Not Given Benztropine Mesylate (Benztropine Mesylate 0.5 Mg Tablet) 0.5 mg PO BEDTIME SALLY Last Admin: 06/10/24 21:10 Dose: Not Given Bisacodyl (Bisacodyl 10 Mg Supp.Rect) 10 mg [place] DAILY PRN PRN Reason: Constipation Divalproex Sodium (Divalproex Sodium Er 250 Mg Tab.Er.24h) 750 mg PO BEDTIME SALLY Last Admin: 06/10/24 21:10 Dose: Not Given Docusate Sodium (Docusate Sodium 100 Mg Capsule) 200 mg PO BID [facility] Last Admin: 06/11/24 11:19 Dose: 200 mg Hydroxyzine HCl (Hydroxyzine Hcl 25 Mg Tablet) 25 mg PO Q6H PRN PRN Reason: Anxiety Last Admin: 06/09/24 11:25 Dose: 25 mg Lisinopril (Lisinopril 2.5 Mg Tablet) 2.5 mg PO DAILY [facility]; Protocol Last Admin: 06/11/24 11:19 Dose: 2.5 mg Magnesium Hydroxide (Milk Of Magnesia 30 Ml Oral.Susp) 30 ml PO DAILY PRN PRN Reason: Constipation Last Admin: 05/25/24 09:57 Dose: 30 ml Olanzapine (Olanzapine Odt 10 Mg Tab.Rapdis) 10 mg TRANSLINGU Q6H PRN PRN Reason: agitation Last Admin: 06/11/24 11:19 Dose: 10 mg Olanzapine (Olanzapine 10 Mg Vial) 10 mg IM BEDTIME PRN PRN Reason: refusal of Abilify Last Admin: 06/10/24 19:30 Dose: 10 mg Ondansetron HCl (Ondansetron Odt 4 Mg Tab.Rapdis) 8 mg TRANSLINGU Q8H PRN PRN Reason: Nausea and Vomiting Last Admin: 05/26/24 11:02 Dose: 8 mg Polyethylene Glycol (Polyethylene Glycol 3350 17 Gm Powd.Pack) 17 gm PO DAILY PRN PRN Reason: constipation Last Admin: 05/15/24 17:41 Dose: 17 gm Quetiapine Fumarate (Quetiapine Fumarate 200 Mg Tablet) 200 mg PO BEDTIME SALLY Last Admin: 06/10/24 21:11 Dose: Not Given Sodium Biphosphate/Sodium Phosphate (Sodium Phosphate,[place]-Dibasic 133 Ml Enema) 133 ml [place] ONCE PRN PRN Reason: severe constipation Last Admin: 05/13/24 18:19 Dose: 133 ml Trazodone HCl (Trazodone Hcl 50 Mg Tablet) 50 mg PO BEDTIME MRX1 PRN PRN Reason: Insomnia Last Admin: 06/06/24 01:47 Dose: 50 mg Allergies Allergies Allergy/AdvReac Type Severity Reaction Status Date / Time No Known Allergies Allergy Verified 05/04/24 15:04 Assessment & Plan Assessment & Plan (1) Bipolar 1 disorder: Status: Acute Code(s): F31.9 - Bipolar disorder, unspecified (2) Dementia: Status: Acute Code(s): F03.90 - Unspecified dementia, unspecified severity, without behavioral disturbance, psychotic disturbance, mood disturbance, and anxiety Plan The patient is an elderly [place]otswanan female, bilingual, with a past history of bipolar disorder and a past history of catatonia with several admissions into the hospital, recently admitted twice in the last 60 days for a presentation of selena. Currently now she has manic symptoms. Plan 1. The patient had been refusing for 3 days in a row Seroquel 200 mg p.o. q.h.s., Abilify 20 mg p.o. q.h.s. and Depakote. We try to discuss with the family the possibility Section 7 and 8 or information of healthcare proxy. Eventually we found out that the patient has an affirmed healthcare proxy and we discussed the case with her children on June 05. 2. Continue 15 minute checks. 3. Abilify Maintena 400 mg IM ordered on June 05. 4. Zyprexa 10 mg IM p.r.n. refusal of Abilify p.o. at night. The patient has an affirmed healthcare proxy and she has authorized this treatment. 5. We are adding Invega 3 mg p.o. q.h.s. on top of Abilify on June 08. 6. We are contacting her daughter regarding her mental status. Reason for continued inpatient stay Substantial Risk for: inability to function, rapid decompensation and med/psych decompensation Time Spent With Patient Time: Total time managing care of this patient today __20__ minutes.
[2024-06-11] MEDS: QUEtiapine Fumarate 200 MG TABLET PO (20:42)
[2024-06-11] MEDS: ARIPiprazole 20 MG TABLET PO (20:42)
[2024-06-11] MEDS: Divalproex Sodium ER 250 MG TAB.ER.24H 750 MG PO (20:42)
[2024-06-11] MEDS: Benztropine Mesylate 0.5 MG TABLET PO (20:42)
[2024-06-12 08:00] VITALS: BP 127/69; PULSE 101; RESP 20; TEMP 36.2; O2SAT 97
[2024-06-12] MEDS: Docusate Sodium 100 MG CAPSULE 200 MG PO (08:58)
[2024-06-12] MEDS: lisinopriL 2.5 MG TABLET PO (08:58)
[2024-06-12] MEDS: OLANZapine ODT 10 MG TAB.RAPDIS TRANSLINGU ×2 (08:58→16:16)
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
[2024-06-12] MEDS: LORazepam 1 MG TABLET 2 MG PO (16:23)
[2024-06-12] MEDS: HaloperidoL 5 MG TABLET PO (16:23)
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
[2024-06-12 20:00] VITALS: BP 106/59; PULSE 100; RESP 18; TEMP 36.6; O2SAT 93
[2024-06-12] MEDS: OLANZapine 10 MG VIAL IM (21:40)
[2024-06-13] MEDS: OLANZapine ODT 10 MG TAB.RAPDIS TRANSLINGU (06:10)
[2024-06-13 08:00] VITALS: PULSE 97; RESP 18; TEMP 36.1; O2SAT 99
[2024-06-13] MEDS: LORazepam 1 MG TABLET 2 MG PO ×2 (09:12→23:32)
[2024-06-13] MEDS: HaloperidoL 5 MG TABLET PO ×2 (09:12→18:25)
--- NOTE | 2024-06-13 13:21 | MHC.CLN ---
NUTRITION REVIEW OF WEIGHT HX SHOWS -6.3% WEIGHT LOSS X ONE MONTH. DIET=REGULAR, SAFETY TRAY, FINGER FOODS. USUALLY TAKES BITES OF FOOD. ADDING ENSURE TID TO PROVIDE 1050 KCALS, 60 G PROTEIN. MONITOR INTAKE AND WEIGHT WEEKLY.
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
[2024-06-13] MEDS: HaloperidoL 1 MG TABLET 2 MG PO (14:41)
[2024-06-13] MEDS: Divalproex Sodium ER 250 MG TAB.ER.24H 750 MG PO (16:47)
[2024-06-13] MEDS: Benztropine Mesylate 0.5 MG TABLET PO (18:24)
[2024-06-13] MEDS: Haloperidol Lactate 5 MG/ML VIAL IM (21:28)
[2024-06-14 07:00] VITALS: BMI 22.8
[2024-06-14 08:11] VITALS: BP 138/75; PULSE 83; RESP 18; TEMP 35.7; O2SAT 97
[2024-06-14] MEDS: Docusate Sodium 100 MG CAPSULE 200 MG PO (08:13)
[2024-06-14] MEDS: HaloperidoL 1 MG TABLET 2 MG PO ×2 (08:13→14:14)
[2024-06-14] MEDS: lisinopriL 2.5 MG TABLET PO (08:14)
[2024-06-14] MEDS: LORazepam 1 MG TABLET 2 MG PO ×2 (10:02→14:14)
--- NOTE | 2024-06-14 11:24 | HO.PSYCHPN ---
Subjective Subjective Date of Service: 06/14/24 Reason For Visit: Psychosis Subjective Notes: Conditional Voluntary Interim History: The nursing staff reported the patient needed IM backup several times since she was noncompliant. She ate dinner she was agitated after that. She was agitated after the visit of her son yesterday. On interview the patient remains confused, manic, grossly disorganized. Mental Status Exam Mental Status Exam Patient Appearance: Appropriate Patient Orientation: Person and Situation Level of Consciousness: Awake and Appropriate Patient Behavior: Guarded and Passive Mood Description: Withdrawn Affect Description: Labile Patient Cognition Impaired: Yes Ability to Follow Directions: Fair Speech Pattern: Clear Hallucinations: None Delusions: Paranoid Ideation and Bizarre Thought Process: Illogical and Distracted Thought Content: positive for [place] and positive for Thought Blocking Judgement: Poor Diagnostics Vital Signs (24Hr): Vital Signs - 24 hr 06/14/24 08:11 06/14/24 08:32 Temperature 96.3 F L Pulse Rate 83 Respiratory Rate 18 Blood Pressure 138/75 Pulse Oximetry 97 Oxygen Delivery Method Room Air Room Air BMI result Body Mass Index 23.0 Labs 05/04/24 15:03 05/22/24 08:03 Imaging Radiology Impressions: ITS Impressions Head CT 05/16/24 14:30 IMPRESSION: There are no acute bleeds or territorial infarcts. No masses are demonstrated. Brain parenchymal attenuation is unremarkable. Medications Medications Current Medications Acetaminophen (Acetaminophen 325 Mg Tablet) 650 mg PO Q6H PRN PRN Reason: Headache/Pain Mild Scale (1-3) Last Admin: 05/18/24 20:51 Dose: 650 mg Al Hydroxide/Mg Hydroxide (Magnesium Hydrox/Alum Hydrox 30 Ml Oral.Susp) 30 ml PO Q6H PRN PRN Reason: Heartburn/Nausea Aripiprazole (Aripiprazole 20 Mg Tablet) 20 mg PO BEDTIME [facility] Last Admin: 06/13/24 21:09 Dose: Not Given Benztropine Mesylate (Benztropine Mesylate 0.5 Mg Tablet) 0.5 mg PO BEDTIME SALLY Last Admin: 06/13/24 18:24 Dose: 0.5 mg Bisacodyl (Bisacodyl 10 Mg Supp.Rect) 10 mg [place] DAILY PRN PRN Reason: Constipation Divalproex Sodium (Divalproex Sodium Er 250 Mg Tab.Er.24h) 750 mg PO BEDTIME SALLY Last Admin: 06/13/24 16:47 Dose: 750 mg Docusate Sodium (Docusate Sodium 100 Mg Capsule) 200 mg PO BID [facility] Last Admin: 06/14/24 08:13 Dose: 100 mg Haloperidol (Haloperidol 5 Mg Tablet) 5 mg PO Q6H PRN PRN Reason: Psychosis Last Admin: 06/13/24 18:25 Dose: 5 mg Haloperidol (Haloperidol 1 Mg Tablet) 2 mg PO TID SALLY Last Admin: 06/14/24 08:13 Dose: 2 mg Haloperidol Lactate (Haloperidol Lactate 5 Mg/Ml Vial) 5 mg IM TID PRN PRN Reason: Refusal antipsychotics Last Admin: 06/13/24 21:28 Dose: 5 mg Lisinopril (Lisinopril 2.5 Mg Tablet) 2.5 mg PO DAILY [facility]; Protocol Last Admin: 06/14/24 08:14 Dose: 2.5 mg Lorazepam (Lorazepam 1 Mg Tablet) 2 mg PO TID PRN PRN Reason: agitation Last Admin: 06/14/24 10:02 Dose: 2 mg Magnesium Hydroxide (Milk Of Magnesia 30 Ml Oral.Susp) 30 ml PO DAILY PRN PRN Reason: Constipation Last Admin: 05/25/24 09:57 Dose: 30 ml Ondansetron HCl (Ondansetron Odt 4 Mg Tab.Rapdis) 8 mg TRANSLINGU Q8H PRN PRN Reason: Nausea and Vomiting Last Admin: 05/26/24 11:02 Dose: 8 mg Polyethylene Glycol (Polyethylene Glycol 3350 17 Gm Powd.Pack) 17 gm PO DAILY PRN PRN Reason: constipation Last Admin: 05/15/24 17:41 Dose: 17 gm Quetiapine Fumarate (Quetiapine Fumarate 200 Mg Tablet) 200 mg PO BEDTIME [facility] Last Admin: 06/13/24 21:09 Dose: Not Given Sodium Biphosphate/Sodium Phosphate (Sodium Phosphate,[place]-Dibasic 133 Ml Enema) 133 ml [place] ONCE PRN PRN Reason: severe constipation Last Admin: 05/13/24 18:19 Dose: 133 ml Trazodone HCl (Trazodone Hcl 50 Mg Tablet) 50 mg PO BEDTIME MRX1 PRN PRN Reason: Insomnia Last Admin: 06/06/24 01:47 Dose: 50 mg Allergies Allergies Allergy/AdvReac Type Severity Reaction Status Date / Time No Known Allergies Allergy Verified 05/04/24 15:04 Assessment & Plan Assessment & Plan (1) Bipolar 1 disorder: Status: Acute Code(s): F31.9 - Bipolar disorder, unspecified (2) Dementia: Status: Acute Code(s): F03.90 - Unspecified dementia, unspecified severity, without behavioral disturbance, psychotic disturbance, mood disturbance, and anxiety Plan The patient is an elderly Amharic female, bilingual, with a past history of bipolar disorder and a past history of catatonia with several admissions into the hospital, recently admitted twice in the last 60 days for a presentation of selena. Currently now she has manic symptoms. Plan 1. The patient had been refusing for 3 days in a row Seroquel 200 mg p.o. q.h.s., Abilify 20 mg p.o. q.h.s. and Depakote. We try to discuss with the family the possibility Section 7 and 8 or information of healthcare proxy. Eventually we found out that the patient has an affirmed healthcare proxy and we discussed the case with her children on June 05. 2. Continue 15 minute checks. 3. Abilify Maintena 400 mg IM ordered on June 05. 4. Zyprexa 10 mg IM p.r.n. refusal of Abilify p.o. at night. The patient has an affirmed healthcare proxy and she has authorized this treatment. Later on, we discontinue Zyprexa and put Haldol 5 mg IM as a backup. 5. We are adding Invega 3 mg p.o. q.h.s. on top of Abilify on June 08. 6. We are contacting her daughter regarding her mental status. 7. Starting on Haldol 2 mg p.o. t.i.d. with Haldol IM backup for psychosis. Reason for continued inpatient stay Substantial Risk for: inability to function, rapid decompensation and med/psych decompensation Time Spent With Patient Time: Total time managing care of this patient today __20__ minutes.
[2024-06-14 20:00] VITALS: BP 116/58; PULSE 80; RESP 16; TEMP 36.1; O2SAT 96
[2024-06-14] MEDS: Haloperidol Lactate 5 MG/ML VIAL IM (21:11)
--- NOTE | 2024-06-15 08:36 | HO.PSYCHPN ---
Subjective Subjective Date of Service: 06/15/24 Reason For Visit: Psychosis Subjective Notes: Conditional Voluntary Interim History: Pt slept 8hrs. She appears much calmer, less paranoid and less aggressive. She is taking medications as prescribed, as per affirmed HCP. She reports doing well. although does report some abdominal pain, no vomiting nor diarrhea. VS stable, afebrile. Review of Systems Review of Systems Dizziness Yes all other systems are reviewed and are negative Mental Status Exam Mental Status Exam Patient Appearance: Appropriate Patient Orientation: Person and Situation Level of Consciousness: Awake and Appropriate Patient Behavior: Guarded and Passive Mood Description: Withdrawn Affect Description: Labile Patient Cognition Impaired: Yes Ability to Follow Directions: Fair Speech Pattern: Clear Diagnostics Vital Signs (24Hr): Vital Signs - 24 hr 06/14/24 20:00 Temperature 97 F Pulse Rate 80 Respiratory Rate 16 Blood Pressure 116/58 L Pulse Oximetry 96 Oxygen Delivery Method Room Air BMI result Body Mass Index 22.8 Labs 05/04/24 15:03 05/22/24 08:03 Imaging Radiology Impressions: ITS Impressions Head CT 05/16/24 14:30 IMPRESSION: There are no acute bleeds or territorial infarcts. No masses are demonstrated. Brain parenchymal attenuation is unremarkable. Medications Medications Current Medications Acetaminophen (Acetaminophen 325 Mg Tablet) 650 mg PO Q6H PRN PRN Reason: Headache/Pain Mild Scale (1-3) Last Admin: 05/18/24 20:51 Dose: 650 mg Al Hydroxide/Mg Hydroxide (Magnesium Hydrox/Alum Hydrox 30 Ml Oral.Susp) 30 ml PO Q6H PRN PRN Reason: Heartburn/Nausea Aripiprazole (Aripiprazole 20 Mg Tablet) 20 mg PO BEDTIME [facility] Last Admin: 06/14/24 21:16 Dose: Not Given Benztropine Mesylate (Benztropine Mesylate 0.5 Mg Tablet) 0.5 mg PO BEDTIME [facility] Last Admin: 06/14/24 21:15 Dose: Not Given Bisacodyl (Bisacodyl 10 Mg Supp.Rect) 10 mg OR DAILY PRN PRN Reason: Constipation Divalproex Sodium (Divalproex Sodium Er 250 Mg Tab.Er.24h) 750 mg PO BEDTIME [facility] Last Admin: 06/14/24 21:15 Dose: Not Given Docusate Sodium (Docusate Sodium 100 Mg Capsule) 200 mg PO BID [facility] Last Admin: 06/14/24 21:15 Dose: Not Given Haloperidol (Haloperidol 5 Mg Tablet) 5 mg PO Q6H PRN PRN Reason: Psychosis Last Admin: 06/13/24 18:25 Dose: 5 mg Haloperidol (Haloperidol 1 Mg Tablet) 2 mg PO TID SALLY Last Admin: 06/14/24 21:16 Dose: Not Given Haloperidol Lactate (Haloperidol Lactate 5 Mg/Ml Vial) 5 mg IM TID PRN PRN Reason: Refusal antipsychotics Last Admin: 06/14/24 21:11 Dose: 5 mg Lisinopril (Lisinopril 2.5 Mg Tablet) 2.5 mg PO DAILY [facility]ALLY; Protocol Last Admin: 06/14/24 08:14 Dose: 2.5 mg Lorazepam (Lorazepam 1 Mg Tablet) 2 mg PO TID PRN PRN Reason: agitation Last Admin: 06/14/24 14:14 Dose: 2 mg Magnesium Hydroxide (Milk Of Magnesia 30 Ml Oral.Susp) 30 ml PO DAILY PRN PRN Reason: Constipation Last Admin: 05/25/24 09:57 Dose: 30 ml Ondansetron HCl (Ondansetron Odt 4 Mg Tab.Rapdis) 8 mg TRANSLINGU Q8H PRN PRN Reason: Nausea and Vomiting Last Admin: 05/26/24 11:02 Dose: 8 mg Polyethylene Glycol (Polyethylene Glycol 3350 17 Gm Powd.Pack) 17 gm PO DAILY PRN PRN Reason: constipation Last Admin: 05/15/24 17:41 Dose: 17 gm Quetiapine Fumarate (Quetiapine Fumarate 200 Mg Tablet) 200 mg PO BEDTIME [facility] Last Admin: 06/14/24 21:16 Dose: Not Given Sodium Biphosphate/Sodium Phosphate (Sodium Phosphate,[place]-Dibasic 133 Ml Enema) 133 ml OR ONCE PRN PRN Reason: severe constipation Last Admin: 05/13/24 18:19 Dose: 133 ml Trazodone HCl (Trazodone Hcl 50 Mg Tablet) 50 mg PO BEDTIME MRX1 PRN PRN Reason: Insomnia Last Admin: 06/06/24 01:47 Dose: 50 mg Allergies Allergies Allergy/AdvReac Type Severity Reaction Status Date / Time No Known Allergies Allergy Verified 05/04/24 15:04 Assessment & Plan Assessment & Plan (1) Bipolar 1 disorder: Status: Acute Code(s): F31.9 - Bipolar disorder, unspecified (2) Dementia: Status: Acute Code(s): F03.90 - Unspecified dementia, unspecified severity, without behavioral disturbance, psychotic disturbance, mood disturbance, and anxiety Plan The patient is an elderly [place] female, bilingual, with a past history of bipolar disorder and a past history of catatonia with several admissions into the hospital, recently admitted twice in the last 60 days for a presentation of selena. Currently now she has manic symptoms. Plan 1. The patient had been refusing for 3 days in a row Seroquel 200 mg p.o. q.h.s., Abilify 20 mg p.o. q.h.s. and Depakote. We try to discuss with the family the possibility Section 7 and 8 or information of healthcare proxy. Eventually we found out that the patient has an affirmed healthcare proxy and we discussed the case with her children on June 05. 2. Continue 15 minute checks. 3. Abilify Maintena 400 mg IM ordered on June 05. 4. Zyprexa 10 mg IM p.r.n. refusal of Abilify p.o. at night. The patient has an affirmed healthcare proxy and she has authorized this treatment. Later on, we discontinue Zyprexa and put Haldol 5 mg IM as a backup. 5. We are adding Invega 3 mg p.o. q.h.s. on top of Abilify on June 08. 6. We are contacting her daughter regarding her mental status. 7. continue Haldol 2 mg p.o. t.i.d. with Haldol IM backup for psychosis. Reason for continued inpatient stay Substantial Risk for: inability to function Time Spent With Patient Time: Total time managing care of this patient today ____ minutes.
[2024-06-15 08:53] VITALS: BP 115/57; PULSE 89; RESP 18; TEMP 36.3; O2SAT 97
[2024-06-15] MEDS: HaloperidoL 1 MG TABLET 2 MG PO (09:06)
[2024-06-15] MEDS: HaloperidoL 5 MG TABLET PO (13:09)
[2024-06-15] MEDS: Haloperidol Lactate 5 MG/ML VIAL IM ×2 (15:26→21:24)
[2024-06-15 20:00] VITALS: RESP 16
[2024-06-16] MEDS: LORazepam 1 MG TABLET 2 MG PO ×2 (00:44→23:01)
[2024-06-16 08:00] VITALS: RESP 16
--- NOTE | 2024-06-16 09:29 | PC.NURSE ---
pt took scheduled morning medication and drank water but did not allow mouth check. Per 1:1 staff, pt spit medication into cup. Per Kidd order w/ give IM medication
[2024-06-16 09:47] VITALS: BP 108/62; PULSE 95; RESP 16; TEMP 36.3; O2SAT 96
[2024-06-16] MEDS: lisinopriL 2.5 MG TABLET PO (09:52)
[2024-06-16] MEDS: Docusate Sodium 100 MG CAPSULE 200 MG PO ×2 (09:58→20:50)
[2024-06-16] MEDS: HaloperidoL 1 MG TABLET 2 MG PO ×3 (09:58→20:38)
--- NOTE | 2024-06-16 12:51 | P.PNPSI_ITS ---
Subjective Subjective Date of Service: 06/16/24 Reason For Visit: Psychosis Subjective Notes: Conditional Voluntary Interim History: Patient was seen and discussed in rounds today. Records and plans were reviewed. She has been taking medications with some coercion. After spitting them out she took him later and mouth check confirmed that. Some aggressive behaviors reported. Some exit seeking behavior reported. She eats minimal amount of food. Sleeping adequately. No changes were made today Review of Systems Review of Systems Dizziness Yes all other systems are reviewed and are negative Mental Status Exam Mental Status Exam Patient Appearance: Appropriate Patient Orientation: Person and Situation Level of Consciousness: Awake and Appropriate Patient Behavior: Guarded and Passive Mood Description: Withdrawn Affect Description: Labile Patient Cognition Impaired: Yes Ability to Follow Directions: Fair Speech Pattern: Clear Diagnostics Vital Signs (24Hr): Vital Signs - 24 hr 06/15/24 20:00 06/16/24 08:00 06/16/24 09:47 Temperature 97.4 F Pulse Rate 95 Respiratory Rate 16 16 16 Blood Pressure 108/62 Pulse Oximetry 96 Oxygen Delivery Method Room Air Room Air Room Air BMI result Body Mass Index 22.8 Labs 05/04/24 15:03 05/22/24 08:03 Imaging Radiology Impressions: ITS Impressions Head CT 05/16/24 14:30 IMPRESSION: There are no acute bleeds or territorial infarcts. No masses are demonstrated. Brain parenchymal attenuation is unremarkable. Medications Medications Current Medications Acetaminophen (Acetaminophen 325 Mg Tablet) 650 mg PO Q6H PRN PRN Reason: Headache/Pain Mild Scale (1-3) Last Admin: 05/18/24 20:51 Dose: 650 mg Al Hydroxide/Mg Hydroxide (Magnesium Hydrox/Alum Hydrox 30 Ml Oral.Susp) 30 ml PO Q6H PRN PRN Reason: Heartburn/Nausea Aripiprazole (Aripiprazole 20 Mg Tablet) 20 mg PO BEDTIME [facility] Last Admin: 06/15/24 21:33 Dose: Not Given Benztropine Mesylate (Benztropine Mesylate 0.5 Mg Tablet) 0.5 mg PO BEDTIME [facility] Last Admin: 06/15/24 21:33 Dose: Not Given Bisacodyl (Bisacodyl 10 Mg Supp.Rect) 10 mg IN DAILY PRN PRN Reason: Constipation Divalproex Sodium (Divalproex Sodium Er 250 Mg Tab.Er.24h) 750 mg PO BEDTIME [facility] Last Admin: 06/15/24 21:34 Dose: Not Given Docusate Sodium (Docusate Sodium 100 Mg Capsule) 200 mg PO BID [facility] Last Admin: 06/16/24 09:58 Dose: 200 mg Haloperidol (Haloperidol 5 Mg Tablet) 5 mg PO Q6H PRN PRN Reason: Psychosis Last Admin: 06/15/24 13:09 Dose: 5 mg Haloperidol (Haloperidol 1 Mg Tablet) 2 mg PO TID SALLY Last Admin: 06/16/24 09:58 Dose: 2 mg Haloperidol Lactate (Haloperidol Lactate 5 Mg/Ml Vial) 5 mg IM TID PRN PRN Reason: Refusal antipsychotics Last Admin: 06/15/24 21:24 Dose: 5 mg Lisinopril (Lisinopril 2.5 Mg Tablet) 2.5 mg PO DAILY [facility]; Protocol Last Admin: 06/16/24 09:52 Dose: 2.5 mg Lorazepam (Lorazepam 1 Mg Tablet) 2 mg PO TID PRN PRN Reason: agitation Last Admin: 06/16/24 00:44 Dose: 2 mg Magnesium Hydroxide (Milk Of Magnesia 30 Ml Oral.Susp) 30 ml PO DAILY PRN PRN Reason: Constipation Last Admin: 05/25/24 09:57 Dose: 30 ml Ondansetron HCl (Ondansetron Odt 4 Mg Tab.Rapdis) 8 mg TRANSLINGU Q8H PRN PRN Reason: Nausea and Vomiting Last Admin: 05/26/24 11:02 Dose: 8 mg Polyethylene Glycol (Polyethylene Glycol 3350 17 Gm Powd.Pack) 17 gm PO DAILY PRN PRN Reason: constipation Last Admin: 05/15/24 17:41 Dose: 17 gm Quetiapine Fumarate (Quetiapine Fumarate 200 Mg Tablet) 200 mg PO BEDTIME [facility] Last Admin: 06/15/24 21:34 Dose: Not Given Sodium Biphosphate/Sodium Phosphate (Sodium Phosphate,[place]-Dibasic 133 Ml Enema) 133 ml IN ONCE PRN PRN Reason: severe constipation Last Admin: 05/13/24 18:19 Dose: 133 ml Trazodone HCl (Trazodone Hcl 50 Mg Tablet) 50 mg PO BEDTIME MRX1 PRN PRN Reason: Insomnia Last Admin: 06/06/24 01:47 Dose: 50 mg Allergies Allergies Allergy/AdvReac Type Severity Reaction Status Date / Time No Known Allergies Allergy Verified 05/04/24 15:04 Assessment & Plan Assessment & Plan (1) Bipolar 1 disorder: Status: Acute Code(s): F31.9 - Bipolar disorder, unspecified (2) Dementia: Status: Acute Code(s): F03.90 - Unspecified dementia, unspecified severity, without behavioral disturbance, psychotic disturbance, mood disturbance, and anxiety Plan The patient is an elderly [place] female, bilingual, with a past history of bipolar disorder and a past history of catatonia with several admissions into the hospital, recently admitted twice in the last 60 days for a presentation of selena. Currently now she has manic symptoms. Plan 1. The patient had been refusing for 3 days in a row Seroquel 200 mg p.o. q.h.s., Abilify 20 mg p.o. q.h.s. and Depakote. We try to discuss with the family the possibility Section 7 and 8 or information of healthcare proxy. Eventually we found out that the patient has an affirmed healthcare proxy and we discussed the case with her children on June 05. 2. Continue 15 minute checks. 3. Abilify Maintena 400 mg IM ordered on June 05. 4. Zyprexa 10 mg IM p.r.n. refusal of Abilify p.o. at night. The patient has an affirmed healthcare proxy and she has authorized this treatment. Later on, we discontinue Zyprexa and put Haldol 5 mg IM as a backup. 5. We are adding Invega 3 mg p.o. q.h.s. on top of Abilify on June 08. 6. We are contacting her daughter regarding her mental status. 7. continue Haldol 2 mg p.o. t.i.d. with Haldol IM backup for psychosis. 06/16: Continue current regimen and planslan Reason for continued inpatient stay Substantial Risk for: med/psych decompensation Time Spent With Patient Time: Total time managing care of this patient today ____ minutes.
[2024-06-16 20:00] VITALS: BP 123/95; PULSE 84; RESP 16; TEMP 36.1; O2SAT 96
[2024-06-16] MEDS: ARIPiprazole 20 MG TABLET PO (20:38)
[2024-06-16] MEDS: QUEtiapine Fumarate 200 MG TABLET PO (20:38)
[2024-06-16] MEDS: Benztropine Mesylate 0.5 MG TABLET PO (20:50)
[2024-06-16] MEDS: Divalproex Sodium ER 250 MG TAB.ER.24H 750 MG PO (20:50)
[2024-06-16] MEDS: traZODone HCL 50 MG TABLET PO (23:00)
[2024-06-17 08:19] VITALS: BP 102/58; PULSE 80; RESP 16; TEMP 36.2; O2SAT 96
[2024-06-17] MEDS: HaloperidoL 1 MG TABLET 2 MG PO ×2 (09:22→15:06)
[2024-06-17] MEDS: Docusate Sodium 100 MG CAPSULE 200 MG PO (09:23)
[2024-06-17] MEDS: lisinopriL 2.5 MG TABLET PO (09:23)
--- NOTE | 2024-06-17 10:23 | HO.PSYCHPN ---
Subjective Subjective Date of Service: 06/17/24 Reason For Visit: Psychosis Subjective Notes: Conditional Voluntary Interim History: Patient was seen and discussed in rounds today. Records and plans were reviewed. She has been taking her medications and is doing better. Questions about 1 of her medicines discussed. She takes her medications from certain nurses. Some mild aggressive behaviors. Eating and sleeping adequately. No changes were made Review of Systems Review of Systems Yes all other systems are reviewed and are negative Mental Status Exam Mental Status Exam Patient Appearance: Appropriate Patient Orientation: Person and Situation Level of Consciousness: Awake and Appropriate Patient Behavior: Guarded and Passive Mood Description: Withdrawn Affect Description: Labile Patient Cognition Impaired: Yes Ability to Follow Directions: Fair Speech Pattern: Clear Diagnostics Vital Signs (24Hr): Vital Signs - 24 hr 06/16/24 20:00 06/17/24 08:19 Temperature 96.9 F 97.1 F Pulse Rate 84 80 Respiratory Rate 16 16 Blood Pressure 123/95 H 102/58 L Pulse Oximetry 96 96 Oxygen Delivery Method Room Air Room Air BMI result Body Mass Index 22.8 Labs 05/04/24 15:03 05/22/24 08:03 Imaging Radiology Impressions: ITS Impressions Head CT 05/16/24 14:30 IMPRESSION: There are no acute bleeds or territorial infarcts. No masses are demonstrated. Brain parenchymal attenuation is unremarkable. Medications Medications Current Medications Acetaminophen (Acetaminophen 325 Mg Tablet) 650 mg PO Q6H PRN PRN Reason: Headache/Pain Mild Scale (1-3) Last Admin: 05/18/24 20:51 Dose: 650 mg Al Hydroxide/Mg Hydroxide (Magnesium Hydrox/Alum Hydrox 30 Ml Oral.Susp) 30 ml PO Q6H PRN PRN Reason: Heartburn/Nausea Aripiprazole (Aripiprazole 20 Mg Tablet) 20 mg PO BEDTIME [facility] Last Admin: 06/16/24 20:38 Dose: 20 mg Benztropine Mesylate (Benztropine Mesylate 0.5 Mg Tablet) 0.5 mg PO BEDTIME [facility] Last Admin: 06/16/24 20:50 Dose: 0.5 mg Bisacodyl (Bisacodyl 10 Mg Supp.Rect) 10 mg [place] DAILY PRN PRN Reason: Constipation Divalproex Sodium (Divalproex Sodium Er 250 Mg Tab.Er.24h) 750 mg PO BEDTIME [facility] Last Admin: 08/17/24 20:50 Dose: 750 mg Docusate Sodium (Docusate Sodium 100 Mg Capsule) 200 mg PO BID [facility] Last Admin: 06/17/24 09:23 Dose: 200 mg Haloperidol (Haloperidol 5 Mg Tablet) 5 mg PO Q6H PRN PRN Reason: Psychosis Last Admin: 06/15/24 13:09 Dose: 5 mg Haloperidol (Haloperidol 1 Mg Tablet) 2 mg PO TID [facility]ALLY Last Admin: 06/17/24 09:22 Dose: 2 mg Haloperidol Lactate (Haloperidol Lactate 5 Mg/Ml Vial) 5 mg IM TID PRN PRN Reason: Refusal antipsychotics Last Admin: 06/15/24 21:24 Dose: 5 mg Lisinopril (Lisinopril 2.5 Mg Tablet) 2.5 mg PO DAILY [facility]; Protocol Last Admin: 06/17/24 09:23 Dose: 2.5 mg Lorazepam (Lorazepam 1 Mg Tablet) 2 mg PO TID PRN PRN Reason: agitation Last Admin: 06/16/24 23:01 Dose: 2 mg Magnesium Hydroxide (Milk Of Magnesia 30 Ml Oral.Susp) 30 ml PO DAILY PRN PRN Reason: Constipation Last Admin: 05/25/24 09:57 Dose: 30 ml Ondansetron HCl (Ondansetron Odt 4 Mg Tab.Rapdis) 8 mg TRANSLINGU Q8H PRN PRN Reason: Nausea and Vomiting Last Admin: 05/26/24 11:02 Dose: 8 mg Polyethylene Glycol (Polyethylene Glycol 3350 17 Gm Powd.Pack) 17 gm PO DAILY PRN PRN Reason: constipation Last Admin: 05/15/24 17:41 Dose: 17 gm Quetiapine Fumarate (Quetiapine Fumarate 200 Mg Tablet) 200 mg PO BEDTIME [facility] Last Admin: 06/16/24 20:38 Dose: 200 mg Sodium Biphosphate/Sodium Phosphate (Sodium Phosphate,[place]-Dibasic 133 Ml Enema) 133 ml [place] ONCE PRN PRN Reason: severe constipation Last Admin: 05/13/24 18:19 Dose: 133 ml Trazodone HCl (Trazodone Hcl 50 Mg Tablet) 50 mg PO BEDTIME MRX1 PRN PRN Reason: Insomnia Last Admin: 06/16/24 23:00 Dose: 50 mg Allergies Allergies Allergy/AdvReac Type Severity Reaction Status Date / Time No Known Allergies Allergy Verified 05/04/24 15:04 Assessment & Plan Assessment & Plan (1) Bipolar 1 disorder: Status: Acute Code(s): F31.9 - Bipolar disorder, unspecified (2) Dementia: Status: Acute Code(s): F03.90 - Unspecified dementia, unspecified severity, without behavioral disturbance, psychotic disturbance, mood disturbance, and anxiety Plan The patient is an elderly [place] female, bilingual, with a past history of bipolar disorder and a past history of catatonia with several admissions into the hospital, recently admitted twice in the last 60 days for a presentation of selena. Currently now she has manic symptoms. Plan 1. The patient had been refusing for 3 days in a row Seroquel 200 mg p.o. q.h.s., Abilify 20 mg p.o. q.h.s. and Depakote. We try to discuss with the family the possibility Section 7 and 8 or information of healthcare proxy. Eventually we found out that the patient has an affirmed healthcare proxy and we discussed the case with her children on June 05. 2. Continue 15 minute checks. 3. Abilify Maintena 400 mg IM ordered on June 05. 4. Zyprexa 10 mg IM p.r.n. refusal of Abilify p.o. at night. The patient has an affirmed healthcare proxy and she has authorized this treatment. Later on, we discontinue Zyprexa and put Haldol 5 mg IM as a backup. 5. We are adding Invega 3 mg p.o. q.h.s. on top of Abilify on June 08. 6. We are contacting her daughter regarding her mental status. 7. continue Haldol 2 mg p.o. t.i.d. with Haldol IM backup for psychosis. 06/16: Continue current regimen and plans 06/17: Continue current regimen and plans Reason for continued inpatient stay Substantial Risk for: med/psych decompensation Time Spent With Patient Time: Total time managing care of this patient today ____ minutes.
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
[2024-06-17] MEDS: Haloperidol Lactate 5 MG/ML VIAL 10 MG IM (19:39)
[2024-06-17] MEDS: diphenhydrAMINE HCL 50 MG/ML VIAL IM (19:39)
[2024-06-17] MEDS: LORazepam 2 MG/ML VIAL IM (19:39)
--- NOTE | 2024-06-17 19:41 | PC.NURSE ---
IM medication Ativan 2mg, Benadryl 50mg, Haldol 10mg was administered at 1939 by RADHA Bradley who took over care at 730pm
[2024-06-18 08:00] VITALS: BP 112/59; PULSE 76; RESP 18; TEMP 36.6; O2SAT 97
[2024-06-18] MEDS: Docusate Sodium 100 MG CAPSULE 200 MG PO (08:28)
[2024-06-18] MEDS: HaloperidoL 1 MG TABLET 2 MG PO ×3 (08:28→20:52)
[2024-06-18 08:29] VITALS: BP 112/59
[2024-06-18] MEDS: lisinopriL 2.5 MG TABLET PO (08:29)
--- NOTE | 2024-06-18 10:45 | P.PNPSI_ITS ---
Subjective Subjective Date of Service: 06/18/24 Reason For Visit: Psychosis Subjective Notes: Conditional Voluntary Interim History: The nursing staff reported the patient remains agitated at times and needed to be chemically restrained at this twice over the weekend. On interview the patient was over-sedated after receiving IM medication. Mental Status Exam Mental Status Exam Patient Appearance: Unkempt Patient Orientation: Person and Situation Level of Consciousness: Sedated Patient Behavior: Guarded and Passive Mood Description: Withdrawn Affect Description: Blunted Patient Cognition Impaired: Yes Ability to Follow Directions: Fair Speech Pattern: Impoverished Hallucinations: None Delusions: Ideas of Reference Thought Process: Illogical and Distracted Thought Content: positive for [place] and positive for Poverty of Content Judgement: Poor Diagnostics Vital Signs (24Hr): Vital Signs - 24 hr 06/18/24 08:29 Blood Pressure 112/59 L BMI result Body Mass Index 22.8 Labs 05/04/24 15:03 05/22/24 08:03 Imaging Radiology Impressions: ITS Impressions Head CT 05/16/24 14:30 IMPRESSION: There are no acute bleeds or territorial infarcts. No masses are demonstrated. Brain parenchymal attenuation is unremarkable. Medications Medications Current Medications Acetaminophen (Acetaminophen 325 Mg Tablet) 650 mg PO Q6H PRN PRN Reason: Headache/Pain Mild Scale (1-3) Last Admin: 05/18/24 20:51 Dose: 650 mg Al Hydroxide/Mg Hydroxide (Magnesium Hydrox/Alum Hydrox 30 Ml Oral.Susp) 30 ml PO Q6H PRN PRN Reason: Heartburn/Nausea Aripiprazole (Aripiprazole 20 Mg Tablet) 20 mg PO BEDTIME [facility] Last Admin: 06/17/24 22:17 Dose: Not Given Benztropine Mesylate (Benztropine Mesylate 0.5 Mg Tablet) 0.5 mg PO BEDTIME [facility] Last Admin: 06/17/24 22:17 Dose: Not Given Bisacodyl (Bisacodyl 10 Mg Supp.Rect) 10 mg PA DAILY PRN PRN Reason: Constipation Divalproex Sodium (Divalproex Sodium Er 250 Mg Tab.Er.24h) 750 mg PO BEDTIME [facility] Last Admin: 06/17/24 22:17 Dose: Not Given Docusate Sodium (Docusate Sodium 100 Mg Capsule) 200 mg PO BID [facility] Last Admin: 06/18/24 08:28 Dose: 200 mg Haloperidol (Haloperidol 5 Mg Tablet) 5 mg PO Q6H PRN PRN Reason: Psychosis Last Admin: 06/15/24 13:09 Dose: 5 mg Haloperidol (Haloperidol 1 Mg Tablet) 2 mg PO TID [facility] Last Admin: 06/18/24 08:28 Dose: 2 mg Haloperidol Lactate (Haloperidol Lactate 5 Mg/Ml Vial) 5 mg IM TID PRN PRN Reason: Refusal antipsychotics Last Admin: 06/15/24 21:24 Dose: 5 mg Lisinopril (Lisinopril 2.5 Mg Tablet) 2.5 mg PO DAILY [facility]; Protocol Last Admin: 06/18/24 08:29 Dose: 2.5 mg Lorazepam (Lorazepam 1 Mg Tablet) 2 mg PO TID PRN PRN Reason: agitation Last Admin: 06/16/24 23:01 Dose: 2 mg Magnesium Hydroxide (Milk Of Magnesia 30 Ml Oral.Susp) 30 ml PO DAILY PRN PRN Reason: Constipation Last Admin: 05/25/24 09:57 Dose: 30 ml Ondansetron HCl (Ondansetron Odt 4 Mg Tab.Rapdis) 8 mg TRANSLINGU Q8H PRN PRN Reason: Nausea and Vomiting Last Admin: 05/26/24 11:02 Dose: 8 mg Polyethylene Glycol (Polyethylene Glycol 3350 17 Gm Powd.Pack) 17 gm PO DAILY PRN PRN Reason: constipation Last Admin: 05/15/24 17:41 Dose: 17 gm Quetiapine Fumarate (Quetiapine Fumarate 200 Mg Tablet) 200 mg PO BEDTIME [facility] Last Admin: 06/17/24 22:18 Dose: Not Given Sodium Biphosphate/Sodium Phosphate (Sodium Phosphate,[place]-Dibasic 133 Ml Enema) 133 ml PA ONCE PRN PRN Reason: severe constipation Last Admin: 05/13/24 18:19 Dose: 133 ml Trazodone HCl (Trazodone Hcl 50 Mg Tablet) 50 mg PO BEDTIME MRX1 PRN PRN Reason: Insomnia Last Admin: 06/16/24 23:00 Dose: 50 mg Allergies Allergies Allergy/AdvReac Type Severity Reaction Status Date / Time No Known Allergies Allergy Verified 05/04/24 15:04 Assessment & Plan Assessment & Plan (1) Bipolar 1 disorder: Status: Acute Code(s): F31.9 - Bipolar disorder, unspecified (2) Dementia: Status: Acute Code(s): F03.90 - Unspecified dementia, unspecified severity, without behavioral disturbance, psychotic disturbance, mood disturbance, and anxiety Plan The patient is an elderly [place] female, bilingual, with a past history of bipolar disorder and a past history of catatonia with several admissions into the hospital, recently admitted twice in the last 60 days for a presentation of selena. Currently now she has manic symptoms. Plan 1. The patient had been refusing for 3 days in a row Seroquel 200 mg p.o. q.h.s., Abilify 20 mg p.o. q.h.s. and Depakote. We try to discuss with the family the possibility Section 7 and 8 or information of healthcare proxy. Eventually we found out that the patient has an affirmed healthcare proxy and we discussed the case with her children on June 05. 2. Continue 15 minute checks. 3. Abilify Maintena 400 mg IM ordered on June 05. 4. Zyprexa 10 mg IM p.r.n. refusal of Abilify p.o. at night. The patient has an affirmed healthcare proxy and she has authorized this treatment. Later on, we discontinue Zyprexa and put Haldol 5 mg IM as a backup. 5. We are adding Invega 3 mg p.o. q.h.s. on top of Abilify on June 08. 6. We are contacting her daughter regarding her mental status. 7. continue Haldol 2 mg p.o. t.i.d. with Haldol IM backup for psychosis. Reason for continued inpatient stay Substantial Risk for: harm to others, inability to function, rapid decompensation and med/psych decompensation Time Spent With Patient Time: Total time managing care of this patient today __20__ minutes.
[2024-06-18] MEDS: Acetaminophen 325 MG TABLET 650 MG PO (18:46)
[2024-06-18 20:00] VITALS: BP 131/68; PULSE 87; RESP 18; TEMP 36.4; O2SAT 96
[2024-06-18] MEDS: ARIPiprazole 20 MG TABLET PO (20:51)
[2024-06-18] MEDS: QUEtiapine Fumarate 200 MG TABLET PO (20:52)
[2024-06-18] MEDS: Benztropine Mesylate 0.5 MG TABLET PO (20:54)
[2024-06-19 08:41] VITALS: BP 143/70
[2024-06-19] MEDS: HaloperidoL 1 MG TABLET 2 MG PO ×3 (08:41→20:06)
[2024-06-19] MEDS: Docusate Sodium 100 MG CAPSULE 200 MG PO ×2 (08:41→20:06)
[2024-06-19] MEDS: lisinopriL 2.5 MG TABLET PO (08:41)
[2024-06-19 08:56] VITALS: BP 143/70; PULSE 80; RESP 16; TEMP 36.8; O2SAT 98
[2024-06-19] MEDS: LORazepam 1 MG TABLET 2 MG PO ×2 (09:08→21:55)
[2024-06-19] MEDS: HaloperidoL 5 MG TABLET PO ×2 (09:09→23:12)
--- NOTE | 2024-06-19 12:40 | P.PNPSI_ITS ---
Subjective Subjective Date of Service: 06/19/24 Reason For Visit: Psychosis Subjective Notes: Conditional Voluntary Healthcare Proxy: Yes Interim History: The nursing staff reported that hte patient has been agitated, exit seeking. She was pleasant yesterday AM but more agitated in the evening. She has not slept last night and she has received several Haldol PRNs PO. On interview, she was psychotic. Mental Status Exam Mental Status Exam Patient Appearance: Unkempt Patient Orientation: Person and Situation Level of Consciousness: Awake Patient Behavior: Guarded and Passive Mood Description: Withdrawn Affect Description: Labile Patient Cognition Impaired: Yes Ability to Follow Directions: Poor Speech Pattern: Clear Hallucinations: None Delusions: Paranoid Ideation Thought Process: Illogical and Distracted Thought Content: positive for [place] and positive for Poverty of Content Judgement: Poor Diagnostics Vital Signs (24Hr): Vital Signs - 24 hr 06/18/24 20:00 06/19/24 08:41 06/19/24 08:56 Temperature 97.6 F 98.2 F Pulse Rate 87 80 Respiratory Rate 18 16 Blood Pressure 131/68 143/70 H 143/70 H Pulse Oximetry 96 98 Oxygen Delivery Method Room Air Room Air BMI result Body Mass Index 22.8 Labs 05/04/24 15:03 05/22/24 08:03 Imaging Radiology Impressions: ITS Impressions Head CT 05/16/24 14:30 IMPRESSION: There are no acute bleeds or territorial infarcts. No masses are demonstrated. Brain parenchymal attenuation is unremarkable. Medications Medications Current Medications Acetaminophen (Acetaminophen 325 Mg Tablet) 650 mg PO Q6H PRN PRN Reason: Headache/Pain Mild Scale (1-3) Last Admin: 06/18/24 18:46 Dose: 650 mg Al Hydroxide/Mg Hydroxide (Magnesium Hydrox/Alum Hydrox 30 Ml Oral.Susp) 30 ml PO Q6H PRN PRN Reason: Heartburn/Nausea Aripiprazole (Aripiprazole 20 Mg Tablet) 20 mg PO BEDTIME [facility] Last Admin: 06/18/24 20:51 Dose: 20 mg Benztropine Mesylate (Benztropine Mesylate 0.5 Mg Tablet) 0.5 mg PO BEDTIME [facility] Last Admin: 06/18/24 20:54 Dose: 0.5 mg Bisacodyl (Bisacodyl 10 Mg Supp.Rect) 10 mg ID DAILY PRN PRN Reason: Constipation Divalproex Sodium (Divalproex Sodium Er 250 Mg Tab.Er.24h) 750 mg PO BEDTIME [facility] Last Admin: 06/18/24 20:58 Dose: Not Given Docusate Sodium (Docusate Sodium 100 Mg Capsule) 200 mg PO BID [facility] Last Admin: 06/19/24 08:41 Dose: 200 mg Haloperidol (Haloperidol 5 Mg Tablet) 5 mg PO Q6H PRN PRN Reason: Psychosis Last Admin: 06/19/24 09:09 Dose: 5 mg Haloperidol (Haloperidol 1 Mg Tablet) 2 mg PO TID [facility] Last Admin: 06/19/24 08:41 Dose: 2 mg Haloperidol Lactate (Haloperidol Lactate 5 Mg/Ml Vial) 5 mg IM TID PRN PRN Reason: Refusal antipsychotics Last Admin: 06/15/24 21:24 Dose: 5 mg Lisinopril (Lisinopril 2.5 Mg Tablet) 2.5 mg PO DAILY [facility]; Protocol Last Admin: 06/19/24 08:41 Dose: 2.5 mg Lorazepam (Lorazepam 1 Mg Tablet) 2 mg PO TID PRN PRN Reason: agitation Last Admin: 06/19/24 09:08 Dose: 2 mg Magnesium Hydroxide (Milk Of Magnesia 30 Ml Oral.Susp) 30 ml PO DAILY PRN PRN Reason: Constipation Last Admin: 05/25/24 09:57 Dose: 30 ml Ondansetron HCl (Ondansetron Odt 4 Mg Tab.Rapdis) 8 mg TRANSLINGU Q8H PRN PRN Reason: Nausea and Vomiting Last Admin: 05/26/24 11:02 Dose: 8 mg Polyethylene Glycol (Polyethylene Glycol 3350 17 Gm Powd.Pack) 17 gm PO DAILY PRN PRN Reason: constipation Last Admin: 05/15/24 17:41 Dose: 17 gm Quetiapine Fumarate (Quetiapine Fumarate 200 Mg Tablet) 200 mg PO BEDTIME [facility] Last Admin: 06/18/24 20:52 Dose: 200 mg Sodium Biphosphate/Sodium Phosphate (Sodium Phosphate,[place]-Dibasic 133 Ml Enema) 133 ml ID ONCE PRN PRN Reason: severe constipation Last Admin: 05/13/24 18:19 Dose: 133 ml Trazodone HCl (Trazodone Hcl 50 Mg Tablet) 50 mg PO BEDTIME MRX1 PRN PRN Reason: Insomnia Last Admin: 06/16/24 23:00 Dose: 50 mg Allergies Allergies Allergy/AdvReac Type Severity Reaction Status Date / Time No Known Allergies Allergy Verified 05/04/24 15:04 Assessment & Plan Assessment & Plan (1) Bipolar 1 disorder: Status: Acute Code(s): F31.9 - Bipolar disorder, unspecified (2) Dementia: Status: Acute Code(s): F03.90 - Unspecified dementia, unspecified severity, without behavioral disturbance, psychotic disturbance, mood disturbance, and anxiety Plan The patient is an elderly [place] female, bilingual, with a past history of bipolar disorder and a past history of catatonia with several admissions into the hospital, recently admitted twice in the last 60 days for a presentation of selena. Currently now she has manic symptoms. Plan 1. The patient had been refusing for 3 days in a row Seroquel 200 mg p.o. q.h.s., Abilify 20 mg p.o. q.h.s. and Depakote. We try to discuss with the family the possibility Section 7 and 8 or information of healthcare proxy. Eventually we found out that the patient has an affirmed healthcare proxy and we discussed the case with her children on June 05. 2. Continue 15 minute checks. 3. Abilify Maintena 400 mg IM ordered on June 05. 4. Zyprexa 10 mg IM p.r.n. refusal of Abilify p.o. at night. The patient has an affirmed healthcare proxy and she has authorized this treatment. Later on, we discontinue Zyprexa and put Haldol 5 mg IM as a backup. 5. We are adding Invega 3 mg p.o. q.h.s. on top of Abilify on June 08. 6. We are contacting her daughter regarding her mental status. 7. continue Haldol 2 mg p.o. t.i.d. with Haldol IM backup for psychosis. Reason for continued inpatient stay Substantial Risk for: inability to function, rapid decompensation and med/psych decompensation Time Spent With Patient Time: Total time managing care of this patient today __20__ minutes.
[2024-06-19 20:05] VITALS: BP 134/75; PULSE 93; RESP 16; TEMP 36; O2SAT 97
[2024-06-19] MEDS: Benztropine Mesylate 0.5 MG TABLET PO (20:06)
[2024-06-19] MEDS: ARIPiprazole 20 MG TABLET PO (20:06)
[2024-06-19] MEDS: Divalproex Sodium ER 250 MG TAB.ER.24H 750 MG PO (20:07)
[2024-06-19] MEDS: QUEtiapine Fumarate 200 MG TABLET PO (20:07)
[2024-06-19] MEDS: traZODone HCL 50 MG TABLET PO (21:55)
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
[2024-06-20 08:26] VITALS: BP 118/74; PULSE 85; RESP 15; TEMP 36.8; O2SAT 97
[2024-06-20] MEDS: LORazepam 1 MG TABLET 2 MG PO ×3 (08:27→23:04)
[2024-06-20] MEDS: HaloperidoL 1 MG TABLET 2 MG PO ×3 (08:28→23:05)
[2024-06-20] MEDS: Docusate Sodium 100 MG CAPSULE 200 MG PO ×2 (08:28→23:05)
[2024-06-20] MEDS: lisinopriL 2.5 MG TABLET PO (08:28)
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
[2024-06-20] MEDS: Acetaminophen 325 MG TABLET 650 MG PO (18:42)
[2024-06-20] MEDS: ARIPiprazole 20 MG TABLET PO (23:04)
[2024-06-20] MEDS: Divalproex Sodium ER 250 MG TAB.ER.24H 750 MG PO (23:04)
[2024-06-20] MEDS: Benztropine Mesylate 0.5 MG TABLET PO (23:05)
[2024-06-20] MEDS: QUEtiapine Fumarate 200 MG TABLET PO (23:05)
[2024-06-21 07:00] VITALS: BMI 22.8
[2024-06-21 08:45] VITALS: BP 115/57; PULSE 70; RESP 16; TEMP 36; O2SAT 100
[2024-06-21] MEDS: HaloperidoL 1 MG TABLET 2 MG PO ×3 (08:48→19:52)
[2024-06-21] MEDS: lisinopriL 2.5 MG TABLET PO (08:48)
[2024-06-21] MEDS: Docusate Sodium 100 MG CAPSULE 200 MG PO ×2 (08:49→19:52)
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
[2024-06-21] MEDS: Famotidine 20 MG TABLET PO (11:39)
[2024-06-21] MEDS: Benztropine Mesylate 0.5 MG TABLET PO ×2 (11:40→19:52)
[2024-06-21] MEDS: QUEtiapine Fumarate 200 MG TABLET PO (19:52)
[2024-06-21] MEDS: ARIPiprazole 20 MG TABLET PO (19:52)
[2024-06-21] MEDS: Divalproex Sodium ER 250 MG TAB.ER.24H 750 MG PO (19:52)
[2024-06-21] MEDS: HaloperidoL 5 MG TABLET PO (19:52)
[2024-06-21 19:59] VITALS: BP 111/59; PULSE 78; RESP 18; TEMP 36.1; O2SAT 98
[2024-06-22 08:00] VITALS: BP 118/56; PULSE 71; RESP 16; TEMP 36.1; O2SAT 99
--- NOTE | 2024-06-22 08:25 | HO.PSYCHPN ---
Subjective Subjective Date of Service: 06/22/24 Reason For Visit: Psychosis Subjective Notes: Conditional Voluntary Healthcare Proxy: Yes Interim History: Pt slept through the night. She appears calmer, less paranoid, less intrusive, less religiously preoccupied. She reports doing well. at time some random episodes of throwing things but not aiming at anyone. She is taking meds per affirmed HCP. Review of Systems Review of Systems Dizziness Yes all other systems are reviewed and are negative Mental Status Exam Mental Status Exam Patient Appearance: Well Grooomed Patient Orientation: Person Level of Consciousness: Disoriented and Restless Patient Behavior: Guarded and Passive Mood Description: Withdrawn Affect Description: Blunted Patient Cognition Impaired: Yes Ability to Follow Directions: Good Speech Pattern: Clear Diagnostics Vital Signs (24Hr): Vital Signs - 24 hr 06/21/24 08:45 06/21/24 19:59 Temperature 96.8 F 97 F Pulse Rate 70 78 Respiratory Rate 16 18 Blood Pressure 115/57 L 111/59 L Pulse Oximetry 100 98 Oxygen Delivery Method Room Air Room Air BMI result Body Mass Index 22.8 Labs 05/04/24 15:03 05/22/24 08:03 Imaging Radiology Impressions: ITS Impressions Head CT 05/16/24 14:30 IMPRESSION: There are no acute bleeds or territorial infarcts. No masses are demonstrated. Brain parenchymal attenuation is unremarkable. Medications Medications Current Medications Acetaminophen (Acetaminophen 325 Mg Tablet) 650 mg PO Q6H PRN PRN Reason: Headache/Pain Mild Scale (1-3) Last Admin: 06/20/24 18:42 Dose: 650 mg Al Hydroxide/Mg Hydroxide (Magnesium Hydrox/Alum Hydrox 30 Ml Oral.Susp) 30 ml PO Q6H PRN PRN Reason: Heartburn/Nausea Aripiprazole (Aripiprazole 20 Mg Tablet) 20 mg PO BEDTIME [facility] Last Admin: 06/21/24 19:52 Dose: 20 mg Benztropine Mesylate (Benztropine Mesylate 0.5 Mg Tablet) 0.5 mg PO BID [facility] Last Admin: 06/21/24 19:52 Dose: 0.5 mg Bisacodyl (Bisacodyl 10 Mg Supp.Rect) 10 mg [place] DAILY PRN PRN Reason: Constipation Divalproex Sodium (Divalproex Sodium Er 250 Mg Tab.Er.24h) 750 mg PO BEDTIME [facility] Last Admin: 06/21/24 19:52 Dose: 750 mg Docusate Sodium (Docusate Sodium 100 Mg Capsule) 200 mg PO BID [facility] Last Admin: 06/21/24 19:52 Dose: 200 mg Famotidine (Famotidine 20 Mg Tablet) 20 mg PO DAILY [facility] Last Admin: 06/21/24 11:39 Dose: 20 mg Haloperidol (Haloperidol 5 Mg Tablet) 5 mg PO Q6H PRN PRN Reason: Psychosis Last Admin: 06/21/24 19:52 Dose: 5 mg Haloperidol (Haloperidol 1 Mg Tablet) 2 mg PO TID SALLY Last Admin: 06/21/24 19:52 Dose: 2 mg Haloperidol Lactate (Haloperidol Lactate 5 Mg/Ml Vial) 5 mg IM TID PRN PRN Reason: Refusal antipsychotics Last Admin: 06/15/24 21:24 Dose: 5 mg Lisinopril (Lisinopril 2.5 Mg Tablet) 2.5 mg PO DAILY [facility]; Protocol Last Admin: 06/21/24 08:48 Dose: 2.5 mg Lorazepam (Lorazepam 1 Mg Tablet) 2 mg PO TID PRN PRN Reason: agitation Last Admin: 06/20/24 23:04 Dose: 2 mg Magnesium Hydroxide (Milk Of Magnesia 30 Ml Oral.Susp) 30 ml PO DAILY PRN PRN Reason: Constipation Last Admin: 05/25/24 09:57 Dose: 30 ml Ondansetron HCl (Ondansetron Odt 4 Mg Tab.Rapdis) 8 mg TRANSLINGU Q8H PRN PRN Reason: Nausea and Vomiting Last Admin: 05/26/24 11:02 Dose: 8 mg Polyethylene Glycol (Polyethylene Glycol 3350 17 Gm Powd.Pack) 17 gm PO DAILY PRN PRN Reason: constipation Last Admin: 05/15/24 17:41 Dose: 17 gm Quetiapine Fumarate (Quetiapine Fumarate 200 Mg Tablet) 200 mg PO BEDTIME [facility] Last Admin: 06/21/24 19:52 Dose: 200 mg Sodium Biphosphate/Sodium Phosphate (Sodium Phosphate,[place]-Dibasic 133 Ml Enema) 133 ml [place] ONCE PRN PRN Reason: severe constipation Last Admin: 05/13/24 18:19 Dose: 133 ml Trazodone HCl (Trazodone Hcl 50 Mg Tablet) 50 mg PO BEDTIME MRX1 PRN PRN Reason: Insomnia Last Admin: 06/19/24 21:55 Dose: 50 mg Allergies Allergies Allergy/AdvReac Type Severity Reaction Status Date / Time No Known Allergies Allergy Verified 05/04/24 15:04 Assessment & Plan Assessment & Plan (1) Bipolar 1 disorder: Status: Acute Code(s): F31.9 - Bipolar disorder, unspecified (2) Dementia: Status: Acute Code(s): F03.90 - Unspecified dementia, unspecified severity, without behavioral disturbance, psychotic disturbance, mood disturbance, and anxiety Plan The patient is an elderly Nepali female, bilingual, with a past history of bipolar disorder and a past history of catatonia with several admissions into the hospital, recently admitted twice in the last 60 days for a presentation of selena. Currently now she has manic symptoms. Plan 06/21 famotidine for acid reflux. less agitated, less psychosis/less delusions. 06/22 continue tx. Reason for continued inpatient stay Substantial Risk for: inability to function Time Spent With Patient Time: Total time managing care of this patient today ____ minutes.
[2024-06-22] MEDS: HaloperidoL 1 MG TABLET 2 MG PO ×3 (08:46→20:24)
[2024-06-22] MEDS: Famotidine 20 MG TABLET PO (08:46)
[2024-06-22] MEDS: Benztropine Mesylate 0.5 MG TABLET PO ×2 (08:47→20:25)
[2024-06-22] MEDS: Docusate Sodium 100 MG CAPSULE 200 MG PO ×2 (08:47→20:25)
[2024-06-22] MEDS: lisinopriL 2.5 MG TABLET PO (08:47)
[2024-06-22 20:00] VITALS: BP 133/63; PULSE 76; RESP 18; TEMP 36.2; O2SAT 99
[2024-06-22] MEDS: ARIPiprazole 20 MG TABLET PO (20:24)
[2024-06-22] MEDS: QUEtiapine Fumarate 200 MG TABLET PO (20:24)
[2024-06-22] MEDS: Divalproex Sodium ER 250 MG TAB.ER.24H 750 MG PO (20:25)
[2024-06-23 09:37] VITALS: BP 118/70; PULSE 98; RESP 15; TEMP 36.7; O2SAT 95
[2024-06-23] MEDS: Famotidine 20 MG TABLET PO (10:47)
[2024-06-23] MEDS: Benztropine Mesylate 0.5 MG TABLET PO ×2 (10:48→20:51)
[2024-06-23] MEDS: Docusate Sodium 100 MG CAPSULE 200 MG PO (10:48)
[2024-06-23] MEDS: HaloperidoL 1 MG TABLET 2 MG PO ×3 (10:48→20:51)
--- NOTE | 2024-06-23 14:18 | P.PNPSI_ITS ---
Subjective Subjective Date of Service: 06/23/24 Reason For Visit: Psychosis Subjective Notes: Conditional Voluntary (by HCP) Healthcare Proxy: Yes Guardianship: No Interim History: 74 yo with dementia and bipolar , roaming unit- almost eloped this am when doors were open happened to be there so started to walk through- easily redirected back toward main unit- Found in corner by this provider with pillow- near other exit door that doesn't opening- /window with lots of sun streaming in- She only nods yes or no to questions does not speak- seems to think about question and then changes whether yes nod or no nod. Medication Compliance: Yes Side effects from medications: No (unknown-) Attending Groups: No Review of Systems Acute medical concerns: No Medical Review of Systems: unchanged Mental Status Exam Mental Status Exam Narrative: see above description, dressed in nightgown and robe- Patient Appearance: Unkempt Patient Orientation: Person (responds to name) Level of Consciousness: Awake Patient Behavior: Guarded, Posturing, Passive, Restless, Wandering and Poor Eye Contact Mood Description: Sad and Apprehensive Affect Description: Flat Patient Cognition Impaired: Yes Ability to Follow Directions: Fair (came back from open doors- ) Speech Pattern: Impoverished (did not hear her speak- just nods) Abnormal Motor Activity Signs and Symptoms: Restlessness Judgement: Poor Diagnostics Vital Signs (24Hr): Vital Signs - 24 hr 06/22/24 20:00 06/23/24 09:37 Temperature 97.1 F 98.1 F Pulse Rate 76 98 Respiratory Rate 18 15 Blood Pressure 133/63 118/70 Pulse Oximetry 99 95 Oxygen Delivery Method Room Air Room Air BMI result Body Mass Index 22.8 Labs 05/04/24 15:03 05/22/24 08:03 Imaging Radiology Impressions: ITS Impressions Head CT 05/16/24 14:30 IMPRESSION: There are no acute bleeds or territorial infarcts. No masses are demonstrated. Brain parenchymal attenuation is unremarkable. Medications Medications Current Medications Acetaminophen (Acetaminophen 325 Mg Tablet) 650 mg PO Q6H PRN PRN Reason: Headache/Pain Mild Scale (1-3) Last Admin: 06/20/24 18:42 Dose: 650 mg Al Hydroxide/Mg Hydroxide (Magnesium Hydrox/Alum Hydrox 30 Ml Oral.Susp) 30 ml PO Q6H PRN PRN Reason: Heartburn/Nausea Aripiprazole (Aripiprazole 20 Mg Tablet) 20 mg PO BEDTIME [facility] Last Admin: 06/22/24 20:24 Dose: 20 mg Benztropine Mesylate (Benztropine Mesylate 0.5 Mg Tablet) 0.5 mg PO BID [facility] Last Admin: 06/23/24 10:48 Dose: 0.5 mg Bisacodyl (Bisacodyl 10 Mg Supp.Rect) [address] DAILY PRN PRN Reason: Constipation Divalproex Sodium (Divalproex Sodium Er 250 Mg Tab.Er.24h) 750 mg PO BEDTIME [facility] Last Admin: 06/22/24 20:25 Dose: 750 mg Docusate Sodium (Docusate Sodium 100 Mg Capsule) 200 mg PO BID [facility] Last Admin: 06/23/24 10:48 Dose: 200 mg Famotidine (Famotidine 20 Mg Tablet) 20 mg PO DAILY [facility] Last Admin: 06/23/24 10:47 Dose: 20 mg Haloperidol (Haloperidol 5 Mg Tablet) 5 mg PO Q6H PRN PRN Reason: Psychosis Last Admin: 06/21/24 19:52 Dose: 5 mg Haloperidol (Haloperidol 1 Mg Tablet) 2 mg PO TID [facility] Last Admin: 06/23/24 10:48 Dose: 2 mg Haloperidol Lactate (Haloperidol Lactate 5 Mg/Ml Vial) 5 mg IM TID PRN PRN Reason: Refusal antipsychotics Last Admin: 06/15/24 21:24 Dose: 5 mg Lisinopril (Lisinopril 2.5 Mg Tablet) 2.5 mg PO DAILY [facility]; Protocol Last Admin: 06/23/24 10:48 Dose: Not Given Lorazepam (Lorazepam 1 Mg Tablet) 2 mg PO TID PRN PRN Reason: agitation Last Admin: 06/20/24 23:04 Dose: 2 mg Magnesium Hydroxide (Milk Of Magnesia 30 Ml Oral.Susp) 30 ml PO DAILY PRN PRN Reason: Constipation Last Admin: 05/25/24 09:57 Dose: 30 ml Ondansetron HCl (Ondansetron Odt 4 Mg Tab.Rapdis) 8 mg TRANSLINGU Q8H PRN PRN Reason: Nausea and Vomiting Last Admin: 05/26/24 11:02 Dose: 8 mg Polyethylene Glycol (Polyethylene Glycol 3350 17 Gm Powd.Pack) 17 gm PO DAILY PRN PRN Reason: constipation Last Admin: 05/15/24 17:41 Dose: 17 gm Quetiapine Fumarate (Quetiapine Fumarate 200 Mg Tablet) 200 mg PO BEDTIME [facility] Last Admin: 06/22/24 20:24 Dose: 200 mg Sodium Biphosphate/Sodium Phosphate (Sodium Phosphate,[place]-Dibasic 133 Ml Enema) [address] ONCE PRN PRN Reason: severe constipation Last Admin: 05/13/24 18:19 Dose: 133 ml Trazodone HCl (Trazodone Hcl 50 Mg Tablet) 50 mg PO BEDTIME MRX1 PRN PRN Reason: Insomnia Last Admin: 06/19/24 21:55 Dose: 50 mg Allergies Allergies Allergy/AdvReac Type Severity Reaction Status Date / Time No Known Allergies Allergy Verified 05/04/24 15:04 Assessment & Plan Assessment & Plan (1) Bipolar 1 disorder: Status: Acute Code(s): F31.9 - Bipolar disorder, unspecified (2) Dementia: Status: Acute Code(s): F03.90 - Unspecified dementia, unspecified severity, without behavioral disturbance, psychotic disturbance, mood disturbance, and anxiety Plan The patient is an elderly Citizen [place] female, bilingual, with a past history of bipolar disorder and a past history of catatonia with several admissions into the hospital, recently admitted twice in the last 60 days for a presentation of selena. Currently now she has manic symptoms. Plan 06/21 famotidine for acid reflux. less agitated, less psychosis/less delusions. 06/22 continue tx. 06/23- mostly mute today hard to tell improvement or not - nods yes or now and wandering unit Reason for continued inpatient stay Substantial Risk for: inability to function and rapid decompensation Time Spent With Patient Time: Total time managing care of this patient today ____ minutes.
[2024-06-23] MEDS: LORazepam 1 MG TABLET 2 MG PO (18:29)
[2024-06-23 20:00] VITALS: BP 101/58; PULSE 62; RESP 18; TEMP 36.2; O2SAT 94
[2024-06-23] MEDS: Divalproex Sodium ER 250 MG TAB.ER.24H 750 MG PO (20:50)
[2024-06-23] MEDS: ARIPiprazole 20 MG TABLET PO (20:51)
[2024-06-24] MEDS: Benztropine Mesylate 0.5 MG TABLET PO ×2 (08:36→21:15)
[2024-06-24] MEDS: LORazepam 1 MG TABLET 2 MG PO ×2 (08:36→15:19)
[2024-06-24] MEDS: Haloperidol Lactate 5 MG/ML VIAL IM (08:51)
--- NOTE | 2024-06-24 12:36 | PC.NURSE ---
Addendum entered by Babita Love RN 06/24/24 13:17: Pt.'s son, Thad, was called by this card writer hand and a voicemail was left which included the contact information. Original Note: This pt was found to be down the hallway with her pants off and a lacy/see-through sweater on as a skirt. Pt was approached and asked to put her pants back on and it was explained to her that she needs to be covered up in order to be in the milieu. Pt was asked several times, and she continued to refused. This card writer hand was with two ancillary staff, and the three of us walked this pt to her room in a [facility] approved hold. One staff on either side of the patient while holding her hands and arms, and the third staff was behind the patient for additional support with her hands off. The patient was brought to her room and asked not to come out until her pants were back on. Pt was able to put her pants back on within 1 minute and then came back out into the milieu without incident.
--- NOTE | 2024-06-24 14:52 | HO.PSYCHPN ---
Subjective Subjective Date of Service: 06/24/24 Reason For Visit: Psychosis Subjective Notes: Conditional Voluntary (HCP) Healthcare Proxy: Yes Guardianship: No Medical Problems Affecting Mental Status: Yes (dementia) Interim History: 74 yo had episode at 11am where she was walking around partially naked and would not respond to verbal prompts so nursing did brief hold ( 1 minute) - to help her walk toward her room- was released when she went into room and was allowed to leave room after she changed into some clothing. She spit her meds this am so got IM haldol as per declan Pt also attempted to take another patient's glasses claiming they were hers and threatened to come back to get them when redirected by staff Pt was more cooperative with provider, vague but verbal and denying any issues. Medication Compliance: Intermittent Side effects from medications: No Attending Groups: No Review of Systems Acute medical concerns: No Medical Review of Systems: unchanged Mental Status Exam Mental Status Exam Patient Appearance: Well Grooomed Patient Orientation: Person Level of Consciousness: Awake Patient Behavior: Posturing, Hypersexual, Restless, Invasion - Personal Space, Good Eye Contact and Impulsive Mood Description: Happy Affect Description: Blunted Patient Cognition Impaired: Yes Ability to Follow Directions: Fair Speech Pattern: Clear (accent ) Thought Process: Distracted Thought Content: positive for Evasive Abnormal Motor Activity Signs and Symptoms: Restlessness Judgement: Poor Diagnostics Vital Signs (24Hr): Vital Signs - 24 hr 06/23/24 20:00 Temperature 97.2 F Pulse Rate 62 Respiratory Rate 18 Blood Pressure 101/58 L Pulse Oximetry 94 Oxygen Delivery Method Room Air BMI result Body Mass Index 22.8 Labs 05/04/24 15:03 05/22/24 08:03 Imaging Radiology Impressions: ITS Impressions Head CT 05/16/24 14:30 IMPRESSION: There are no acute bleeds or territorial infarcts. No masses are demonstrated. Brain parenchymal attenuation is unremarkable. Medications Medications Current Medications Acetaminophen (Acetaminophen 325 Mg Tablet) 650 mg PO Q6H PRN PRN Reason: Headache/Pain Mild Scale (1-3) Last Admin: 06/20/24 18:42 Dose: 650 mg Al Hydroxide/Mg Hydroxide (Magnesium Hydrox/Alum Hydrox 30 Ml Oral.Susp) 30 ml PO Q6H PRN PRN Reason: Heartburn/Nausea Aripiprazole (Aripiprazole 20 Mg Tablet) 20 mg PO BEDTIME [facility] Last Admin: 06/23/24 20:51 Dose: 20 mg Benztropine Mesylate (Benztropine Mesylate 0.5 Mg Tablet) 0.5 mg PO BID [facility] Last Admin: 06/24/24 08:36 Dose: 0.5 mg Bisacodyl (Bisacodyl 10 Mg Supp.Rect) 10 mg [place] DAILY PRN PRN Reason: Constipation Divalproex Sodium (Divalproex Sodium Er 250 Mg Tab.Er.24h) 750 mg PO BEDTIME [facility] Last Admin: 06/23/24 20:50 Dose: 750 mg Docusate Sodium (Docusate Sodium 100 Mg Capsule) 200 mg PO BID [facility] Last Admin: 06/24/24 09:02 Dose: Not Given Famotidine (Famotidine 20 Mg Tablet) 20 mg PO DAILY [facility] Last Admin: 06/24/24 09:02 Dose: Not Given Haloperidol (Haloperidol 5 Mg Tablet) 5 mg PO Q6H PRN PRN Reason: Psychosis Last Admin: 06/21/24 19:52 Dose: 5 mg Haloperidol (Haloperidol 1 Mg Tablet) 2 mg PO TID [facility] Last Admin: 06/24/24 08:44 Dose: Not Given Haloperidol Lactate (Haloperidol Lactate 5 Mg/Ml Vial) 5 mg IM TID PRN PRN Reason: Refusal antipsychotics Last Admin: 06/24/24 08:51 Dose: 5 mg Lisinopril (Lisinopril 2.5 Mg Tablet) 2.5 mg PO DAILY [facility]; Protocol Last Admin: 06/24/24 09:02 Dose: Not Given Lorazepam (Lorazepam 1 Mg Tablet) 2 mg PO TID PRN PRN Reason: agitation Last Admin: 06/24/24 08:36 Dose: 2 mg Magnesium Hydroxide (Milk Of Magnesia 30 Ml Oral.Susp) 30 ml PO DAILY PRN PRN Reason: Constipation Last Admin: 05/25/24 09:57 Dose: 30 ml Ondansetron HCl (Ondansetron Odt 4 Mg Tab.Rapdis) 8 mg TRANSLINGU Q8H PRN PRN Reason: Nausea and Vomiting Last Admin: 05/26/24 11:02 Dose: 8 mg Polyethylene Glycol (Polyethylene Glycol 3350 17 Gm Powd.Pack) 17 gm PO DAILY PRN PRN Reason: constipation Last Admin: 05/15/24 17:41 Dose: 17 gm Quetiapine Fumarate (Quetiapine Fumarate 200 Mg Tablet) 200 mg PO BEDTIME [facility] Last Admin: 06/23/24 20:58 Dose: Not Given Sodium Biphosphate/Sodium Phosphate (Sodium Phosphate,[place]-Dibasic 133 Ml Enema) 133 ml [place] ONCE PRN PRN Reason: severe constipation Last Admin: 05/13/24 18:19 Dose: 133 ml Trazodone HCl (Trazodone Hcl 50 Mg Tablet) 50 mg PO BEDTIME MRX1 PRN PRN Reason: Insomnia Last Admin: 06/19/24 21:55 Dose: 50 mg Allergies Allergies Allergy/AdvReac Type Severity Reaction Status Date / Time No Known Allergies Allergy Verified 05/04/24 15:04 Assessment & Plan Assessment & Plan (1) Bipolar 1 disorder: Status: Acute Code(s): F31.9 - Bipolar disorder, unspecified (2) Dementia: Status: Acute Code(s): F03.90 - Unspecified dementia, unspecified severity, without behavioral disturbance, psychotic disturbance, mood disturbance, and anxiety Plan The patient is an elderly Polish female, bilingual, with a past history of bipolar disorder and a past history of catatonia with several admissions into the hospital, recently admitted twice in the last 60 days for a presentation of selena. Currently now she has manic symptoms. Plan 06/21 famotidine for acid reflux. less agitated, less psychosis/less delusions. 06/22 continue tx. 06/23- mostly mute today hard to tell improvement or not - nods yes or now and wandering unit 06/24 not mute today- inc lability , spit out meds got IM haldol had breif hold for nudity redirect- [facility] Patient educated on: other Informed Consent: further education needed Reason for continued inpatient stay Substantial Risk for: inability to function and rapid decompensation Time Spent With Patient Time: Total time managing care of this patient today ____ minutes.
[2024-06-24] MEDS: HaloperidoL 1 MG TABLET 2 MG PO ×2 (15:19→21:15)
[2024-06-24 20:00] VITALS: BP 106/59; PULSE 64; RESP 18; TEMP 36.2; O2SAT 96
[2024-06-24] MEDS: QUEtiapine Fumarate 200 MG TABLET PO (21:14)
[2024-06-24] MEDS: ARIPiprazole 20 MG TABLET PO (21:15)
--- NOTE | 2024-06-25 | ECG_ITS ---
Test Reason : ECT CLEARENCE Blood Pressure : / mmHG Vent. Rate : 076 BPM Atrial Rate : 076 BPM P-R Int : 126 ms QRS Dur : 066 ms QT Int : 360 ms P-R-T Axes : 047 032 050 degrees QTc Int : 405 ms Normal sinus rhythm Normal ECG When compared with ECG of 07-MAY-2024 09:39, No significant change was found Referred By: Sylvester Leary Electronically Signed By:PARVEZ HERNÁNDEZ
[2024-06-25 09:50] VITALS: BP 119/65; PULSE 74; RESP 18; TEMP 36.1; O2SAT 98
[2024-06-25] MEDS: HaloperidoL 1 MG TABLET 2 MG PO ×3 (09:52→20:07)
[2024-06-25] MEDS: Docusate Sodium 100 MG CAPSULE 200 MG PO ×2 (09:53→20:07)
[2024-06-25] MEDS: Benztropine Mesylate 0.5 MG TABLET PO ×2 (09:53→20:07)
[2024-06-25] MEDS: lisinopriL 2.5 MG TABLET PO (09:53)
[2024-06-25] MEDS: Famotidine 20 MG TABLET PO (09:54)
[2024-06-25] MEDS: Acetaminophen 325 MG TABLET 650 MG PO (13:07)
--- NOTE | 2024-06-25 13:15 | P.PNPSI_ITS ---
Subjective Subjective Date of Service: 06/25/24 Reason For Visit: Psychosis Subjective Notes: Conditional Voluntary Healthcare Proxy: Yes Interim History: The nursing staff reported the patient had been flat irritable agitated at times she refused her p.o. medications and needed her Haldol IM backup. She has refused Depakote and she had a physical hold yesterday to take medications. The licensed master social worker reported that her daughter called and we are going to discuss today about ECT since the patient is not responding to treatment. On interview the patient remains psychotic, disorganized on one-to-one. I called her daughter and she agreed on ECT. Mental Status Exam Mental Status Exam Patient Appearance: Unkempt Patient Orientation: Person and Situation Level of Consciousness: Awake Patient Behavior: Guarded and Passive Mood Description: Withdrawn Affect Description: Blunted Patient Cognition Impaired: Yes Ability to Follow Directions: Fair Speech Pattern: Clear Hallucinations: None Delusions: Paranoid Ideation and Ideas of Reference Thought Process: Distracted and Slowed Thinking Thought Content: positive for [place] and positive for Poverty of Content Judgement: Fair Diagnostics Vital Signs (24Hr): Vital Signs - 24 hr 06/24/24 20:00 06/25/24 09:50 Temperature 97.2 F 96.9 F Pulse Rate 64 74 Respiratory Rate 18 18 Blood Pressure 106/59 L 119/65 Pulse Oximetry 96 98 Oxygen Delivery Method Room Air Room Air BMI result Body Mass Index 22.8 Labs 05/04/24 15:03 05/22/24 08:03 Imaging Radiology Impressions: ITS Impressions Head CT 05/16/24 14:30 IMPRESSION: There are no acute bleeds or territorial infarcts. No masses are demonstrated. Brain parenchymal attenuation is unremarkable. Medications Medications Current Medications Acetaminophen (Acetaminophen 325 Mg Tablet) 650 mg PO Q6H PRN PRN Reason: Headache/Pain Mild Scale (1-3) Last Admin: 06/25/24 13:07 Dose: 650 mg Al Hydroxide/Mg Hydroxide (Magnesium Hydrox/Alum Hydrox 30 Ml Oral.Susp) 30 ml PO Q6H PRN PRN Reason: Heartburn/Nausea Aripiprazole (Aripiprazole 20 Mg Tablet) 20 mg PO BEDTIME [facility] Last Admin: 06/24/24 21:15 Dose: 20 mg Benztropine Mesylate (Benztropine Mesylate 0.5 Mg Tablet) 0.5 mg PO BID [facility] Last Admin: 06/25/24 09:53 Dose: 0.5 mg Bisacodyl (Bisacodyl 10 Mg Supp.Rect) 10 mg [place] DAILY PRN PRN Reason: Constipation Divalproex Sodium (Divalproex Sodium Er 250 Mg Tab.Er.24h) 750 mg PO BEDTIME [facility] Last Admin: 06/24/24 21:23 Dose: Not Given Docusate Sodium (Docusate Sodium 100 Mg Capsule) 200 mg PO BID [facility] Last Admin: 06/25/24 09:53 Dose: 200 mg Famotidine (Famotidine 20 Mg Tablet) 20 mg PO DAILY [facility] Last Admin: 06/25/24 09:54 Dose: 20 mg Haloperidol (Haloperidol 5 Mg Tablet) 5 mg PO Q6H PRN PRN Reason: Psychosis Last Admin: 06/21/24 19:52 Dose: 5 mg Haloperidol (Haloperidol 1 Mg Tablet) 2 mg PO TID [facility] Last Admin: 06/25/24 09:52 Dose: 2 mg Haloperidol Lactate (Haloperidol Lactate 5 Mg/Ml Vial) 5 mg IM TID PRN PRN Reason: Refusal antipsychotics Last Admin: 06/24/24 08:51 Dose: 5 mg Lisinopril (Lisinopril 2.5 Mg Tablet) 2.5 mg PO DAILY [facility]; Protocol Last Admin: 06/25/24 09:53 Dose: 2.5 mg Lorazepam (Lorazepam 1 Mg Tablet) 2 mg PO TID PRN PRN Reason: agitation Last Admin: 06/24/24 15:19 Dose: 2 mg Magnesium Hydroxide (Milk Of Magnesia 30 Ml Oral.Susp) 30 ml PO DAILY PRN PRN Reason: Constipation Last Admin: 05/25/24 09:57 Dose: 30 ml Ondansetron HCl (Ondansetron Odt 4 Mg Tab.Rapdis) 8 mg TRANSLINGU Q8H PRN PRN Reason: Nausea and Vomiting Last Admin: 05/26/24 11:02 Dose: 8 mg Polyethylene Glycol (Polyethylene Glycol 3350 17 Gm Powd.Pack) 17 gm PO DAILY PRN PRN Reason: constipation Last Admin: 05/15/24 17:41 Dose: 17 gm Quetiapine Fumarate (Quetiapine Fumarate 200 Mg Tablet) 200 mg PO BEDTIME [facility] Last Admin: 06/24/24 21:14 Dose: 200 mg Sodium Biphosphate/Sodium Phosphate (Sodium Phosphate,[place]-Dibasic 133 Ml Enema) 133 ml [place] ONCE PRN PRN Reason: severe constipation Last Admin: 05/13/24 18:19 Dose: 133 ml Trazodone HCl (Trazodone Hcl 50 Mg Tablet) 50 mg PO BEDTIME MRX1 PRN PRN Reason: Insomnia Last Admin: 06/19/24 21:55 Dose: 50 mg Allergies Allergies Allergy/AdvReac Type Severity Reaction Status Date / Time No Known Allergies Allergy Verified 05/04/24 15:04 Assessment & Plan Assessment & Plan (1) Bipolar 1 disorder: Status: Acute Code(s): F31.9 - Bipolar disorder, unspecified (2) Dementia: Status: Acute Code(s): F03.90 - Unspecified dementia, unspecified severity, without behavioral disturbance, psychotic disturbance, mood disturbance, and anxiety Plan The patient is an elderly [place] female, bilingual, with a past history of bipolar disorder and a past history of catatonia with several admissions into the hospital, recently admitted twice in the last 60 days for a presentation of selena. Currently now she has manic symptoms. Plan 1. The patient has an affirmed healthcare proxy, her daughter has decided to continue treatment. 2. Continue with the Abilify Maintena 400 mg monthly. 3. Continue with Depakote but recently the patient had become noncompliant. 4. Haldol p.o. t.i.d. with backup IM if patient refuses. 5. ECT referral. Case discussed with Dr. Small and her daughter who is the affirmed her health proxy agreed on the procedure. Reason for continued inpatient stay Substantial Risk for: inability to function, rapid decompensation and med/psych decompensation Time Spent With Patient Time: Total time managing care of this patient today __20__ minutes.
[2024-06-25] MEDS: HaloperidoL 5 MG TABLET PO (13:27)
--- NOTE | 2024-06-25 16:48 | P.CNHOSGPS_ITS ---
History of Present Illness Data of Consult Service Date: 06/25/24 Requesting physician: Sylvester Leary Primary Care Provider: Hernandez Basilio MD [facility] Reason for consult: ect need reason for consult:ECt clearence. 74 y/o F currently admitted to psych for bipolar disorder for possible selena . patient says she is here for treatment ( mental health ) . Denies any new symptoms.ambulating in corridor. Patient CT scan last month seems fine ,ekg also fine. as per staff in psych : she has ect in past that helped . Review of Systems 2 Review of Systems: as above. [facility] Social History Household Members: Children Housing: House Patient Tobacco Use Status: Never used Tobacco Smoked in Last 30 Days: No Use of substances other than those prescribed or required for medical reasons: No Currently Displaying Signs/Symptoms of Drug Intoxication Withdrawal: No Have you been hit, kicked, punched, or otherwise hurt by someone within the past year? If so, by whom?: No Do you feel safe in your current relationship?: No Current Relationship Is there a partner from a previous relationship who is making you feel unsafe now?: No Are you made to feel afraid or neglected: No Advance Directives: No Advance Directives Information Provided: No Do you have thoughts of harming others: None Do you have a plan to hurt others: No Plan Recently lost weight without trying: No Nutrition Risks: No Nutritional Risk Patient : No : No Sexual orientation: Straight/Heterosexual Meds Allergies Allergy/AdvReac Type Severity Reaction Status Date / Time No Known Allergies Allergy Verified 05/04/24 15:04 Active Medications: Current Medications Acetaminophen (Acetaminophen 325 Mg Tablet) 650 mg PO Q6H PRN PRN Reason: Headache/Pain Mild Scale (1-3) Last Admin: 06/25/24 13:07 Dose: 650 mg Al Hydroxide/Mg Hydroxide (Magnesium Hydrox/Alum Hydrox 30 Ml Oral.Susp) 30 ml PO Q6H PRN PRN Reason: Heartburn/Nausea Aripiprazole (Aripiprazole 20 Mg Tablet) 20 mg PO BEDTIME SALLY Last Admin: 06/24/24 21:15 Dose: 20 mg Benztropine Mesylate (Benztropine Mesylate 0.5 Mg Tablet) 0.5 mg PO BID SALLY Last Admin: 06/25/24 09:53 Dose: 0.5 mg Bisacodyl (Bisacodyl 10 Mg Supp.Rect) 10 mg [place] DAILY PRN PRN Reason: Constipation Divalproex Sodium (Divalproex Sodium Er 250 Mg Tab.Er.24h) 750 mg PO BEDTIME [facility] Last Admin: 06/24/24 21:23 Dose: Not Given Docusate Sodium (Docusate Sodium 100 Mg Capsule) 200 mg PO BID [facility] Last Admin: 06/25/24 09:53 Dose: 200 mg Famotidine (Famotidine 20 Mg Tablet) 20 mg PO DAILY [facility] Last Admin: 06/25/24 09:54 Dose: 20 mg Haloperidol (Haloperidol 5 Mg Tablet) 5 mg PO Q6H PRN PRN Reason: Psychosis Last Admin: 06/25/24 13:27 Dose: 5 mg Haloperidol (Haloperidol 1 Mg Tablet) 2 mg PO TID [facility] [place] Last Admin: 06/25/24 15:16 Dose: 2 mg Haloperidol Lactate (Haloperidol Lactate 5 Mg/Ml Vial) 5 mg IM TID PRN PRN Reason: Refusal antipsychotics Last Admin: 06/24/24 08:51 Dose: 5 mg Lisinopril (Lisinopril 2.5 Mg Tablet) 2.5 mg PO DAILY [facility] [place]; Protocol Last Admin: 06/25/24 09:53 Dose: 2.5 mg Lorazepam (Lorazepam 1 Mg Tablet) 2 mg PO TID PRN PRN Reason: agitation Last Admin: 06/24/24 15:19 Dose: 2 mg Magnesium Hydroxide (Milk Of Magnesia 30 Ml Oral.Susp) 30 ml PO DAILY PRN PRN Reason: Constipation Last Admin: 05/25/24 09:57 Dose: 30 ml Ondansetron HCl (Ondansetron Odt 4 Mg Tab.Rapdis) 8 mg TRANSLINGU Q8H PRN PRN Reason: Nausea and Vomiting Last Admin: 05/26/24 11:02 Dose: 8 mg Polyethylene Glycol (Polyethylene Glycol 3350 17 Gm Powd.Pack) 17 gm PO DAILY PRN PRN Reason: constipation Last Admin: 05/15/24 17:41 Dose: 17 gm Quetiapine Fumarate (Quetiapine Fumarate 200 Mg Tablet) 200 mg PO BEDTIME [facility] [place] Last Admin: 06/24/24 21:14 Dose: 200 mg Sodium Biphosphate/Sodium Phosphate (Sodium Phosphate,[place]-Dibasic 133 Ml Enema) 133 ml [place] ONCE PRN PRN Reason: severe constipation Last Admin: 05/13/24 18:19 Dose: 133 ml Trazodone HCl (Trazodone Hcl 50 Mg Tablet) 50 mg PO BEDTIME MRX1 PRN PRN Reason: Insomnia Last Admin: 06/19/24 21:55 Dose: 50 mg Home Medications ?Medication ?Instructions ?Recorded ?Confirmed ?Last Taken ?Type benztropine 0.5 mg tablet 0.5 mg PO BEDTIME 05/04/24 05/04/24 Unknown History divalproex 250 mg tablet,extended 250 mg PO BEDTIME 05/04/24 05/04/24 Unknown History release 24 hr lamotrigine 100 mg tablet 100 mg PO BEDTIME 05/04/24 05/04/24 Unknown History lisinopril 5 mg tablet 2.5 mg PO DAILY 05/04/24 05/04/24 Unknown History quetiapine 100 mg tablet 100 mg PO DAILY 05/04/24 05/04/24 Unknown History quetiapine 300 mg tablet 300 mg PO BEDTIME 05/04/24 05/04/24 Unknown History quetiapine 50 mg tablet 50 mg PO BID PRN Agitation 05/04/24 05/04/24 Unknown History Results Labs 05/04/24 15:03 05/22/24 08:03 Assessment and Plan (1) Bipolar 1 disorder: Status: Acute Plan 74 y/o F currently admitted to psych for bipolar disorder for possible selena - need ECT. Bipolar dis ,selena : continue management for bipolar by psych head ct last month seems fine ekg-nsr no new symtpoms had ect in past that helped as per staff Patient currently does not had contradictions to Ect procedure(rcri class 1 risk). Physical Exam Vital Signs: Last Vital Signs Temp 96.9 F 06/25/24 09:50 Pulse 74 06/25/24 09:50 Resp 18 06/25/24 09:50 BP 119/65 06/25/24 09:50 Pulse Ox 98 06/25/24 09:50 O2 Del Method Room Air 06/25/24 09:50 BMI result Body Mass Index 22.8 awake ,cooperative Eyes: Pupils equal, round and reactive to light.? ENT: Pharynx normal.? Moist mucous membranes. cvs: rrr, [id number] . res: clear to auscultation ,no rhonchii or wheezing abd: no rebound or guarding ,nt, bs present. ext pulses present , no cyanosis . neuro: Cn2-12 intact nonfocal. Neuro Cranial nerves: Yes CN's II-XII intact bilaterally
--- NOTE | 2024-06-25 17:18 | PC.NURSE ---
Daughter called and updated regarding patient's behavior today and need for prn Haldol. Daughter is in agreement with ECT, feels that she has had it in the past and it has helped her. Dr. Zamora down to visit patient for ECT clearance. No further behaviors.
--- NOTE | 2024-06-25 17:21 | HO.ECTCONS_ITS ---
History of Present Illness Data of Consult Service Date: 06/25/24 Primary Care Provider: Hernandez Basilio MD [facility] Reason for consult: ect risk reason for consult:ECt clearence. 74 y/o F currently admitted to psych for bipolar disorder for possible selena . patient says she is here for treatment ( mental health ) . Denies any new symptoms.ambulating in corridor. Patient CT scan last month seems fine ,ekg also fine. as per staff in psych : she has ect in past that helped . Review of Systems 2 Review of Systems: Yes all other systems are reviewed and are negative [facility] Social History Household Members: Children Housing: House Patient Tobacco Use Status: Never used Tobacco Smoked in Last 30 Days: No Use of substances other than those prescribed or required for medical reasons: No Currently Displaying Signs/Symptoms of Drug Intoxication Withdrawal: No Have you been hit, kicked, punched, or otherwise hurt by someone within the past year? If so, by whom?: No Do you feel safe in your current relationship?: No Current Relationship Is there a partner from a previous relationship who is making you feel unsafe now?: No Are you made to feel afraid or neglected: No Advance Directives: No Advance Directives Information Provided: No Do you have thoughts of harming others: None Do you have a plan to hurt others: No Plan Recently lost weight without trying: No Nutrition Risks: No Nutritional Risk Patient : No : No Sexual orientation: Straight/Heterosexual Meds Allergies Allergy/AdvReac Type Severity Reaction Status Date / Time No Known Allergies Allergy Verified 05/04/24 15:04 Active Medications: Current Medications Acetaminophen (Acetaminophen 325 Mg Tablet) 650 mg PO Q6H PRN PRN Reason: Headache/Pain Mild Scale (1-3) Last Admin: 06/25/24 13:07 Dose: 650 mg Al Hydroxide/Mg Hydroxide (Magnesium Hydrox/Alum Hydrox 30 Ml Oral.Susp) 30 ml PO Q6H PRN PRN Reason: Heartburn/Nausea Aripiprazole (Aripiprazole 20 Mg Tablet) 20 mg PO BEDTIME [facility] Last Admin: 06/24/24 21:15 Dose: 20 mg Benztropine Mesylate (Benztropine Mesylate 0.5 Mg Tablet) 0.5 mg PO BID SALLY Last Admin: 06/25/24 09:53 Dose: 0.5 mg Bisacodyl (Bisacodyl 10 Mg Supp.Rect) 10 mg [place] DAILY PRN PRN Reason: Constipation Divalproex Sodium (Divalproex Sodium Er 250 Mg Tab.Er.24h) 750 mg PO BEDTIME [facility] Last Admin: 06/24/24 21:23 Dose: Not Given Docusate Sodium (Docusate Sodium 100 Mg Capsule) 200 mg PO BID [facility] Last Admin: 06/25/24 09:53 Dose: 200 mg Famotidine (Famotidine 20 Mg Tablet) 20 mg PO DAILY [facility] Last Admin: 06/25/24 09:54 Dose: 20 mg Haloperidol (Haloperidol 5 Mg Tablet) 5 mg PO Q6H PRN PRN Reason: Psychosis Last Admin: 06/25/24 13:27 Dose: 5 mg Haloperidol (Haloperidol 1 Mg Tablet) 2 mg PO TID [facility] Last Admin: 06/25/24 15:16 Dose: 2 mg Haloperidol Lactate (Haloperidol Lactate 5 Mg/Ml Vial) 5 mg IM TID PRN PRN Reason: Refusal antipsychotics Last Admin: 06/24/24 08:51 Dose: 5 mg Lisinopril (Lisinopril 2.5 Mg Tablet) 2.5 mg PO DAILY [facility]; Protocol Last Admin: 06/25/24 09:53 Dose: 2.5 mg Lorazepam (Lorazepam 1 Mg Tablet) 2 mg PO TID PRN PRN Reason: agitation Last Admin: 06/24/24 15:19 Dose: 2 mg Magnesium Hydroxide (Milk Of Magnesia 30 Ml Oral.Susp) 30 ml PO DAILY PRN PRN Reason: Constipation Last Admin: 05/25/24 09:57 Dose: 30 ml Ondansetron HCl (Ondansetron Odt 4 Mg Tab.Rapdis) 8 mg TRANSLINGU Q8H PRN PRN Reason: Nausea and Vomiting Last Admin: 05/26/24 11:02 Dose: 8 mg Polyethylene Glycol (Polyethylene Glycol 3350 17 Gm Powd.Pack) 17 gm PO DAILY PRN PRN Reason: constipation Last Admin: 05/15/24 17:41 Dose: 17 gm Quetiapine Fumarate (Quetiapine Fumarate 200 Mg Tablet) 200 mg PO BEDTIME [facility] Last Admin: 06/24/24 21:14 Dose: 200 mg Sodium Biphosphate/Sodium Phosphate (Sodium Phosphate,[place]-Dibasic 133 Ml Enema) 133 ml [place] ONCE PRN PRN Reason: severe constipation Last Admin: 05/13/24 18:19 Dose: 133 ml Trazodone HCl (Trazodone Hcl 50 Mg Tablet) 50 mg PO BEDTIME MRX1 PRN PRN Reason: Insomnia Last Admin: 06/19/24 21:55 Dose: 50 mg Home Medications ?Medication ?Instructions ?Recorded ?Confirmed ?Last Taken ?Type benztropine 0.5 mg tablet 0.5 mg PO BEDTIME 05/04/24 05/04/24 Unknown History divalproex 250 mg tablet,extended 250 mg PO BEDTIME 05/04/24 05/04/24 Unknown History release 24 hr lamotrigine 100 mg tablet 100 mg PO BEDTIME 05/04/24 05/04/24 Unknown History lisinopril 5 mg tablet 2.5 mg PO DAILY 05/04/24 05/04/24 Unknown History quetiapine 100 mg tablet 100 mg PO DAILY 05/04/24 05/04/24 Unknown History quetiapine 300 mg tablet 300 mg PO BEDTIME 05/04/24 05/04/24 Unknown History quetiapine 50 mg tablet 50 mg PO BID PRN Agitation 05/04/24 05/04/24 Unknown History Physical Exam 2 Vital Signs and Narrative: Vital Signs: Last Vital Signs Temp 96.9 F 06/25/24 09:50 Pulse 74 06/25/24 09:50 Resp 18 06/25/24 09:50 BP 119/65 06/25/24 09:50 Pulse Ox 98 06/25/24 09:50 O2 Del Method Room Air 06/25/24 09:50 BMI result Body Mass Index 22.8 Appearance: Awake and cooperative Eyes: Pupils equal, round and reactive to light.? ENT: Pharynx normal.? Moist mucous membranes. cvs: rrr, [id number] , no murmur res: clear to auscultation ,no rhonchii or wheezing abd: no rebound or guarding ,nt, bs present. ext pulses present , no cyanosis . neuro: Cn2-12 intact nonfocal. Results Labs 05/04/24 15:03 05/22/24 08:03 Assessment and Plan (1) Bipolar 1 disorder: Status: Acute Plan 74 y/o F currently admitted to psych for bipolar disorder for possible selena - need ECT. Bipolar dis ,selena : continue management for bipolar by psych head ct last month seems fine ekg-nsr no new symtpoms had ect in past that helped as per staff Patient currently does not had contradictions to Ect procedure(rcri class 1 risk).
[2024-06-25 20:00] VITALS: BP 115/75; PULSE 78; RESP 18; TEMP 36.2; O2SAT 98
[2024-06-25] MEDS: ARIPiprazole 20 MG TABLET PO (20:07)
[2024-06-25] MEDS: Divalproex Sodium ER 250 MG TAB.ER.24H 750 MG PO (20:45)
[2024-06-26 08:00] VITALS: BP 122/69; PULSE 84; RESP 17; TEMP 35.7; O2SAT 98
[2024-06-26] MEDS: HaloperidoL 1 MG TABLET 2 MG PO ×2 (09:58→14:22)
[2024-06-26] MEDS: Docusate Sodium 100 MG CAPSULE 200 MG PO (09:58)
[2024-06-26 09:59] VITALS: BP 122/68
[2024-06-26] MEDS: lisinopriL 2.5 MG TABLET PO (09:59)
[2024-06-26] MEDS: Famotidine 20 MG TABLET PO (09:59)
[2024-06-26] MEDS: Benztropine Mesylate 0.5 MG TABLET PO (09:59)
--- NOTE | 2024-06-26 12:08 | P.PNPSI_ITS ---
Subjective Subjective Date of Service: 06/26/24 Reason For Visit: Psychosis Subjective Notes: Conditional Voluntary Healthcare Proxy: Yes (Affirmed healthcare proxy) Interim History: The patient had been manic, singing loudly in the hallway very disorganized. She was also exit seeking. We will start ECT as soon as she is medically cleared. Mental Status Exam Mental Status Exam Patient Appearance: Unkempt Patient Orientation: Person Level of Consciousness: Awake and Restless Patient Behavior: Talkative Mood Description: Withdrawn Affect Description: Labile Patient Cognition Impaired: Yes Ability to Follow Directions: Poor Speech Pattern: Spontaneous Speech and Rapid Hallucinations: None Delusions: Paranoid Ideation, Grandiose and Ideas of Reference Thought Process: Racing, Illogical and Distracted Thought Content: positive for [place] Judgement: Poor Diagnostics Vital Signs (24Hr): Vital Signs - 24 hr 06/25/24 20:00 06/26/24 08:00 06/26/24 09:59 Temperature 97.2 F 96.2 F L Pulse Rate 78 84 Respiratory Rate 18 17 Blood Pressure 115/75 122/69 122/68 Pulse Oximetry 98 98 Oxygen Delivery Method Room Air Room Air BMI result Body Mass Index 22.8 Labs 05/04/24 15:03 05/22/24 08:03 Imaging Radiology Impressions: ITS Impressions Head CT 05/16/24 14:30 IMPRESSION: There are no acute bleeds or territorial infarcts. No masses are demonstrated. Brain parenchymal attenuation is unremarkable. Medications Medications Current Medications Acetaminophen (Acetaminophen 325 Mg Tablet) 650 mg PO Q6H PRN PRN Reason: Headache/Pain Mild Scale (1-3) Last Admin: 06/25/24 13:07 Dose: 650 mg Al Hydroxide/Mg Hydroxide (Magnesium Hydrox/Alum Hydrox 30 Ml Oral.Susp) 30 ml PO Q6H PRN PRN Reason: Heartburn/Nausea Aripiprazole (Aripiprazole 20 Mg Tablet) 20 mg PO BEDTIME [facility] Last Admin: 06/25/24 20:07 Dose: 20 mg Benztropine Mesylate (Benztropine Mesylate 0.5 Mg Tablet) 0.5 mg PO BID [facility]ALLY Last Admin: 06/26/24 09:59 Dose: 0.5 mg Bisacodyl (Bisacodyl 10 Mg Supp.Rect) 10 mg [place] DAILY PRN PRN Reason: Constipation Divalproex Sodium (Divalproex Sodium Er 250 Mg Tab.Er.24h) 750 mg PO BEDTIME [facility] Last Admin: 06/25/24 20:45 Dose: 750 mg Docusate Sodium (Docusate Sodium 100 Mg Capsule) 200 mg PO BID [facility] Last Admin: 06/26/24 09:58 Dose: 200 mg Famotidine (Famotidine 20 Mg Tablet) 20 mg PO DAILY [facility] Last Admin: 06/26/24 09:59 Dose: 20 mg Haloperidol (Haloperidol 5 Mg Tablet) 5 mg PO Q6H PRN PRN Reason: Psychosis Last Admin: 06/25/24 13:27 Dose: 5 mg Haloperidol (Haloperidol 1 Mg Tablet) 2 mg PO TID [facility]ALLY Last Admin: 06/26/24 09:58 Dose: 2 mg Haloperidol Lactate (Haloperidol Lactate 5 Mg/Ml Vial) 5 mg IM TID PRN PRN Reason: Refusal antipsychotics Last Admin: 06/24/24 08:51 Dose: 5 mg Lisinopril (Lisinopril 2.5 Mg Tablet) 2.5 mg PO DAILY [facility]; Protocol Last Admin: 06/26/24 09:59 Dose: 2.5 mg Lorazepam (Lorazepam 1 Mg Tablet) 2 mg PO TID PRN PRN Reason: agitation Last Admin: 06/24/24 15:19 Dose: 2 mg Magnesium Hydroxide (Milk Of Magnesia 30 Ml Oral.Susp) 30 ml PO DAILY PRN PRN Reason: Constipation Last Admin: 05/25/24 09:57 Dose: 30 ml Ondansetron HCl (Ondansetron Odt 4 Mg Tab.Rapdis) 8 mg TRANSLINGU Q8H PRN PRN Reason: Nausea and Vomiting Last Admin: 05/26/24 11:02 Dose: 8 mg Polyethylene Glycol (Polyethylene Glycol 3350 17 Gm Powd.Pack) 17 gm PO DAILY PRN PRN Reason: constipation Last Admin: 05/15/24 17:41 Dose: 17 gm Quetiapine Fumarate (Quetiapine Fumarate 200 Mg Tablet) 200 mg PO BEDTIME [facility] Last Admin: 06/25/24 20:35 Dose: Not Given Sodium Biphosphate/Sodium Phosphate (Sodium Phosphate,[place]-Dibasic 133 Ml Enema) 133 ml [place] ONCE PRN PRN Reason: severe constipation Last Admin: 05/13/24 18:19 Dose: 133 ml Trazodone HCl (Trazodone Hcl 50 Mg Tablet) 50 mg PO BEDTIME MRX1 PRN PRN Reason: Insomnia Last Admin: 06/19/24 21:55 Dose: 50 mg Allergies Allergies Allergy/AdvReac Type Severity Reaction Status Date / Time No Known Allergies Allergy Verified 05/04/24 15:04 Assessment & Plan Assessment & Plan (1) Bipolar 1 disorder: Status: Acute Code(s): F31.9 - Bipolar disorder, unspecified Plan 74 y/o F currently admitted to psych for bipolar disorder for possible selena - need ECT. Bipolar dis ,selena : continue management for bipolar by psych head ct last month seems fine ekg-nsr no new symtpoms had ect in past that helped as per staff Patient currently does not had contradictions to Ect procedure(rcri class 1 risk). Plan 1. Start ECT. 2. Continue with Abilify and other medications. 3. Reassessment with results. Reason for continued inpatient stay Substantial Risk for: inability to function, rapid decompensation and med/psych decompensation Time Spent With Patient Time: Total time managing care of this patient today __20__ minutes.
--- NOTE | 2024-06-26 15:37 | PC.NURSE ---
At 3:15 pt took her glasses and snapped the left arm of her glasses in half. Staff took the glasses and placed them in patient belongings as they are not concerned a weapon.
[2024-06-26 20:00] VITALS: BP 133/80; PULSE 92; RESP 18; TEMP 36.7; O2SAT 96
[2024-06-26] MEDS: Haloperidol Lactate 5 MG/ML VIAL IM (21:55)
[2024-06-27] VITALS (10 sets, daily range): BP systolic 107–156; BP diastolic 63–82; PULSE 75–96; RESP 16–20; TEMP 36.1–36.9; O2SAT 92–97
--- NOTE | 2024-06-27 07:07 | P.CONAN_ITS ---
[facility] Active Problems Active Problems: All Active Problems Dementia (Acute) Bipolar 1 disorder (Acute) Family History Family history of problems with anesthesia: No Surgical History History of Problems with Anesthesia: No Social History Social History Household Members: Children Housing: House Patient Tobacco Use Status: Never used Tobacco Smoked in Last 30 Days: No Use of substances other than those prescribed or required for medical reasons: No Currently Displaying Signs/Symptoms of Drug Intoxication Withdrawal: No Have you been hit, kicked, punched, or otherwise hurt by someone within the past year? If so, by whom?: No Do you feel safe in your current relationship?: No Current Relationship Is there a partner from a previous relationship who is making you feel unsafe now?: No Are you made to feel afraid or neglected: No Advance Directives: No Advance Directives Information Provided: No Do you have thoughts of harming others: None Do you have a plan to hurt others: No Plan Recently lost weight without trying: No Nutrition Risks: No Nutritional Risk Patient : No : No Sexual orientation: Straight/Heterosexual Meds Allergies Allergy/AdvReac Type Severity Reaction Status Date / Time No Known Allergies Allergy Verified 05/04/24 15:04 Active Medications: Current Medications Acetaminophen (Acetaminophen 325 Mg Tablet) 650 mg PO Q6H PRN PRN Reason: Headache/Pain Mild Scale (1-3) Last Admin: 06/25/24 13:07 Dose: 650 mg Al Hydroxide/Mg Hydroxide (Magnesium Hydrox/Alum Hydrox 30 Ml Oral.Susp) 30 ml PO Q6H PRN PRN Reason: Heartburn/Nausea Aripiprazole (Aripiprazole 20 Mg Tablet) 20 mg PO BEDTIME [facility] Last Admin: 06/26/24 21:56 Dose: Not Given Benztropine Mesylate (Benztropine Mesylate 0.5 Mg Tablet) 0.5 mg PO BID [facility] Last Admin: 06/26/24 21:56 Dose: Not Given Bisacodyl (Bisacodyl 10 Mg Supp.Rect) 10 mg [place] DAILY PRN PRN Reason: Constipation Divalproex Sodium (Divalproex Sodium Er 250 Mg Tab.Er.24h) 750 mg PO BEDTIME [facility] Last Admin: 06/26/24 21:56 Dose: Not Given Docusate Sodium (Docusate Sodium 100 Mg Capsule) 200 mg PO BID [facility] Last Admin: 06/26/24 21:56 Dose: Not Given Famotidine (Famotidine 20 Mg Tablet) 20 mg PO DAILY [facility] Last Admin: 06/26/24 09:59 Dose: 20 mg Haloperidol (Haloperidol 5 Mg Tablet) 5 mg PO Q6H PRN PRN Reason: Psychosis Last Admin: 06/25/24 13:27 Dose: 5 mg Haloperidol (Haloperidol 1 Mg Tablet) 2 mg PO TID [facility] Last Admin: 06/26/24 21:57 Dose: Not Given Haloperidol Lactate (Haloperidol Lactate 5 Mg/Ml Vial) 5 mg IM TID PRN PRN Reason: Refusal antipsychotics Last Admin: 06/26/24 21:55 Dose: 5 mg Lisinopril (Lisinopril 2.5 Mg Tablet) 2.5 mg PO DAILY [facility]; Protocol Last Admin: 06/26/24 09:59 Dose: 2.5 mg Lorazepam (Lorazepam 1 Mg Tablet) 2 mg PO TID PRN PRN Reason: agitation Last Admin: 06/24/24 15:19 Dose: 2 mg Magnesium Hydroxide (Milk Of Magnesia 30 Ml Oral.Susp) 30 ml PO DAILY PRN PRN Reason: Constipation Last Admin: 05/25/24 09:57 Dose: 30 ml Ondansetron HCl (Ondansetron Odt 4 Mg Tab.Rapdis) 8 mg TRANSLINGU Q8H PRN PRN Reason: Nausea and Vomiting Last Admin: 05/26/24 11:02 Dose: 8 mg Polyethylene Glycol (Polyethylene Glycol 3350 17 Gm Powd.Pack) 17 gm PO DAILY PRN PRN Reason: constipation Last Admin: 05/15/24 17:41 Dose: 17 gm Quetiapine Fumarate (Quetiapine Fumarate 200 Mg Tablet) 200 mg PO BEDTIME [facility] Last Admin: 06/26/24 21:57 Dose: Not Given Sodium Biphosphate/Sodium Phosphate (Sodium Phosphate,[place]-Dibasic 133 Ml Enema) 133 ml [place] ONCE PRN PRN Reason: severe constipation Last Admin: 05/13/24 18:19 Dose: 133 ml Trazodone HCl (Trazodone Hcl 50 Mg Tablet) 50 mg PO BEDTIME MRX1 PRN PRN Reason: Insomnia Last Admin: 06/19/24 21:55 Dose: 50 mg Home Medications ?Medication ?Instructions ?Recorded ?Confirmed ?Last Taken ?Type benztropine 0.5 mg tablet 0.5 mg PO BEDTIME 05/04/24 05/04/24 Unknown History divalproex 250 mg tablet,extended 250 mg PO BEDTIME 05/04/24 05/04/24 Unknown History release 24 hr lamotrigine 100 mg tablet 100 mg PO BEDTIME 05/04/24 05/04/24 Unknown History lisinopril 5 mg tablet 2.5 mg PO DAILY 05/04/24 05/04/24 Unknown History quetiapine 100 mg tablet 100 mg PO DAILY 05/04/24 05/04/24 Unknown History quetiapine 300 mg tablet 300 mg PO BEDTIME 05/04/24 05/04/24 Unknown History quetiapine 50 mg tablet 50 mg PO BID PRN Agitation 05/04/24 05/04/24 Unknown History Exam Height,Weight and Vital Signs: Height 5 ft Weight 53.07 kg Last Vital Signs Temp 97.8 F 06/27/24 06:02 Pulse 89 06/27/24 06:02 Resp 20 06/27/24 06:02 BP 156/70 H 06/27/24 06:02 Pulse Ox 97 06/27/24 06:02 O2 Del Method Room Air 06/26/24 20:00 Pertinent Lab Results Pertinent Lab Results: Laboratory Tests 05/04/24 05/05/24 05/05/24 15:03 12:44 13:08 WBC 4.9 RBC 4.49 Hgb 13.4 Hct 40.3 MCV 89.8 MCH 29.8 MCHC 33.3 RDW 13.4 Plt Count 215 MPV 9.1 L Immature Gran % (Auto) 0.2 Neut % (Auto) 51.7 Lymph % (Auto) 32.9 Nye % (Auto) 11.1 H Eos % (Auto) 3.5 Baso % (Auto) 0.6 Lymph # (Auto) 1.6 [place]ye # (Auto) 0.5 Eos # (Auto) 0.2 Baso # (Auto) 0.0 Abs Immat Gran (auto) 0.01 Absolute Neuts (auto) 2.5 Absolute Nucleated RBC 0.000 Nucleated RBC % (auto) 0.0 Hold Purple Top Sodium 141 Potassium 4.0 Chloride 102 Carbon Dioxide 31 H Anion Gap 12 BUN 19 H Creatinine 1.08 Estim Creat Clear Calc 37.5 Estimated GFR 50 Random Glucose 104 Fasting Glucose Calcium 9.4 Magnesium 2.3 Total Bilirubin 0.6 Direct Bilirubin AST 18 ALT 13 Alkaline Phosphatase 122 H Ammonia Total Protein 7.5 Albumin 4.2 Triglycerides Cholesterol LDL Cholesterol, Calc HDL Cholesterol TSH 1.25 Hold Yellow Top See Note Urine Color Urine Appearance Urine pH Ur Specific [place] Urine Protein Urine Glucose (UA) Urine Ketones Urine Blood Urine Nitrite Ur Leukocyte Esterase Urine RBC Urine WBC Ur Squamous Epith Cells Urine Bacteria Hyaline Casts Salicylates < 5.0 L Urine Opiates Screen Ur Buprenorphine Scrn Ur Oxycodone Screen Urine Methadone Screen Urine Fentanyl Screen Acetaminophen < 3 Ur Barbiturates Screen Valproic Acid < 12.5 L Ur Phencyclidine Scrn Ur Amphetamines Screen U Benzodiazepines Scrn Urine Cocaine Screen U Marijuana (THC) Screen Ethyl Alcohol < 10 05/05/24 05/09/24 05/16/24 13:16 08:10 20:12 WBC RBC Hgb Hct MCV MCH MCHC RDW Plt Count MPV Immature Gran % (Auto) Neut % (Auto) Lymph % (Auto) [place]ye % (Auto) Eos % (Auto) Baso % (Auto) Lymph # (Auto) [place] # (Auto) Eos # (Auto) Baso # (Auto) Abs Immat Gran (auto) Absolute Neuts (auto) Absolute Nucleated RBC Nucleated RBC % (auto) Hold Purple Top SEE NOTE Sodium 138 143 Potassium 3.8 4.1 Chloride 101 104 Carbon Dioxide 30 H 27 Anion Gap 11 L 16 BUN 27 H 26 H Creatinine 1.24 0.90 Estim Creat Clear Calc 32.6 44.6 Estimated GFR 43 > 60 Random Glucose 130 H Fasting Glucose 112 H Calcium 9.3 9.2 Magnesium Total Bilirubin 0.9 0.6 Direct Bilirubin 0.2 AST 18 15 ALT 12 10 Alkaline Phosphatase 100 96 Ammonia 25 Total Protein 7.3 6.7 Albumin 4.1 3.8 Triglycerides 61 Cholesterol 157 LDL Cholesterol, Calc 100 H HDL Cholesterol 45 TSH Hold Yellow Top Urine Color Yellow Urine Appearance Clear Urine pH 7.0 Ur Specific [place] 1.020 Urine Protein Negative Urine Glucose (UA) Negative Urine Ketones Negative Urine Blood Negative Urine Nitrite Negative Ur Leukocyte Esterase Moderate (2+) H Urine RBC 0-2 Urine WBC 0-5 Ur Squamous Epith Cells 0-2 Urine Bacteria None Seen Hyaline Casts 0-2 Salicylates Urine Opiates Screen Not Detected Ur Buprenorphine Scrn Not Detected Ur Oxycodone Screen Not Detected Urine Methadone Screen Not Detected Urine Fentanyl Screen Not Detected Acetaminophen Ur Barbiturates Screen Not Detected Valproic Acid 50.2 Ur Phencyclidine Scrn Not Detected Ur Amphetamines Screen Not Detected U Benzodiazepines Scrn Not Detected Urine Cocaine Screen Not Detected U Marijuana (THC) Screen Not Detected Ethyl Alcohol 05/21/24 05/22/24 05/24/24 08:09 08:03 18:05 WBC RBC Hgb Hct MCV MCH MCHC RDW Plt Count MPV Immature Gran % (Auto) Neut % (Auto) Lymph % (Auto) [place]ye % (Auto) Eos % (Auto) Baso % (Auto) Lymph # (Auto) [place] # (Auto) Eos # (Auto) Baso # (Auto) Abs Immat Gran (auto) Absolute Neuts (auto) Absolute Nucleated RBC Nucleated RBC % (auto) Hold Purple Top Sodium 143 Potassium 3.9 Chloride 105 Carbon Dioxide 29 Anion Gap 13 BUN 31 H Creatinine 1.11 Estim Creat Clear Calc 36.0 Estimated GFR 48 Random Glucose Fasting Glucose 81 Calcium 9.5 Magnesium Total Bilirubin 0.5 Direct Bilirubin AST 17 ALT 9 Alkaline Phosphatase 89 Ammonia 20 Total Protein 7.1 Albumin 4.1 Triglycerides Cholesterol LDL Cholesterol, Calc HDL Cholesterol TSH Hold Yellow Top Urine Color Urine Appearance Urine pH Ur Specific [place] Urine Protein Urine Glucose (UA) Urine Ketones Urine Blood Urine Nitrite Ur Leukocyte Esterase Urine RBC Urine WBC Ur Squamous Epith Cells Urine Bacteria Hyaline Casts Salicylates Urine Opiates Screen Ur Buprenorphine Scrn Ur Oxycodone Screen Urine Methadone Screen Urine Fentanyl Screen Acetaminophen Ur Barbiturates Screen Valproic Acid 142.5 H* 142.8 H* 113.4 H* Ur Phencyclidine Scrn Ur Amphetamines Screen U Benzodiazepines Scrn Urine Cocaine Screen U Marijuana (THC) Screen Ethyl Alcohol 05/27/24 05/30/24 10:04 09:29 WBC RBC Hgb Hct MCV MCH MCHC RDW Plt Count MPV Immature Gran % (Auto) Neut % (Auto) Lymph % (Auto) [place]ye % (Auto) Eos % (Auto) Baso % (Auto) Lymph # (Auto) [place]ye # (Auto) Eos # (Auto) Baso # (Auto) Abs Immat Gran (auto) Absolute Neuts (auto) Absolute Nucleated RBC Nucleated RBC % (auto) Hold Purple Top Sodium Potassium Chloride Carbon Dioxide Anion Gap BUN Creatinine Estim Creat Clear Calc Estimated GFR Random Glucose Fasting Glucose Calcium Magnesium Total Bilirubin Direct Bilirubin AST ALT Alkaline Phosphatase Ammonia Total Protein Albumin Triglycerides Cholesterol LDL Cholesterol, Calc HDL Cholesterol TSH Hold Yellow Top Urine Color Urine Appearance Urine pH Ur Specific [place] Urine Protein Urine Glucose (UA) Urine Ketones Urine Blood Urine Nitrite Ur Leukocyte Esterase Urine RBC Urine WBC Ur Squamous Epith Cells Urine Bacteria Hyaline Casts Salicylates Urine Opiates Screen Ur Buprenorphine Scrn Ur Oxycodone Screen Urine Methadone Screen Urine Fentanyl Screen Acetaminophen Ur Barbiturates Screen Valproic Acid 116.9 H* 114.7 H* Ur Phencyclidine Scrn Ur Amphetamines Screen U Benzodiazepines Scrn Urine Cocaine Screen U Marijuana (THC) Screen Ethyl Alcohol Airway Mallampati Class: II (edentulous on bottom) TM Dist: >3cm Neck ROM: Full Heart: rrr Lungs: cta Assessment and Plan Assessment Anesthesia Assessment: Anesthesia Plan Discussed and Chart Reviewed Final Anesthetic Review Family History of Problems with Anesthesia: No History of Problems with Anesthesia: No NPO: Yes ASA Class: III Final Preanesthetic Review: No Changes in Pt Med Stat, Meds/Allgs Chart Reviewed and Consent Obtained/Reviewed Patient Risk: Intermediate Procedure Risk: Intermediate Anesthetic Plan Anesthetic Plan: GA Disposition: Standard PACU
--- NOTE | 2024-06-27 08:21 | HO.ECTPROC ---
ECT Procedure Note Diagnosis/Treatment Date of Service: 06/27/24 Diagnosis: Bipolar disorder Previous ECT Date: 06/27/24 Current Treatment Number: 1 Treatment: Series Interval Clinical Notes: pt consent by daughter hcp bf 100 % no sz restim bt 100 % sz 67 sec pt with manic psychosis and aggression Time: Total time managing care of this patient today ____ minutes. ECT Settings Device: THYMATRON DGx
--- NOTE | 2024-06-27 08:31 | MHC.SHP ---
Pre-Procedural Eval Section A - 24 Hr Update-Section A only Date of Service: 06/27/24 The patient is an INPATIENT: Yes Changes since office visit: Yes Changes in Medication; No Cold of Flu in the past 2 weeks, No New Medical Problems and No Patient answered all questions The patient has been examined within 24 hours of the surgical procedure. The History & Physical has been completed within 30 days and I have reviewed it.: Yes Section B - Complete if H&P > 30 days Chief Complaint: Psychosis Allergies: Allergies Allergy/AdvReac Type Severity Reaction Status Date / Time No Known Allergies Allergy Verified 05/04/24 15:04 Plan I have reviewed the history and physical and performed a pertinent physical examination on my patient. No changes have occurred unless specified. Time Spent With Patient Time: Total time managing care of this patient today ____ minutes.
--- NOTE | 2024-06-27 08:31 | HO.ECTPROC ---
ECT Procedure Note Diagnosis/Treatment Date of Service: 06/28/24 Diagnosis: Bipolar disorder Current Treatment Number: 1 Treatment: Series Interval Clinical Notes: pt tolerated 1st ect without difficulty done BT 100 initial bf stim no sz Time: Total time managing care of this patient today ____ minutes. ECT Settings Device: THYMATRON DGx Electrode Placement: Bitemporal Program/Pulse Width: 0.50 Energy Percent: 100 Seizure Duration By EEG (in seconds): 42 Medications Administration General Anesthetic: Etomidate (12) Muscle Relaxant: Succinylcholine (80) Airway Management Airway Management: Bag Mask Ventilation Treatment Recommendations No Changes Recommended: No change Notes: required BT tx
[2024-06-27] MEDS: Famotidine 20 MG TABLET PO (11:47)
[2024-06-27] MEDS: lisinopriL 2.5 MG TABLET PO (11:47)
[2024-06-27] MEDS: Docusate Sodium 100 MG CAPSULE 200 MG PO (11:47)
[2024-06-27] MEDS: HaloperidoL 1 MG TABLET 2 MG PO ×2 (11:47→15:55)
[2024-06-27] MEDS: Benztropine Mesylate 0.5 MG TABLET PO (11:47)
--- NOTE | 2024-06-27 11:52 | P.PNPSI_ITS ---
Subjective Subjective Date of Service: 06/27/24 Reason For Visit: Psychosis Subjective Notes: Conditional Voluntary Healthcare Proxy: Yes (Affirmed healthcare proxy) Interim History: The nursing staff reported the patient had been agitated, exit seeking, grossly manic yesterday. Today she went to ECT and she was over-sedated after the procedure. On interview the patient was slightly sedated after the procedure. Mental Status Exam Mental Status Exam Patient Appearance: Appropriate Patient Orientation: Person and Situation Level of Consciousness: Awake Patient Behavior: Guarded and Passive Mood Description: Withdrawn Affect Description: Labile Patient Cognition Impaired: Yes Ability to Follow Directions: Good Speech Pattern: Clear Hallucinations: None Delusions: Paranoid Ideation and Grandiose Thought Process: Distracted and Slowed Thinking Thought Content: positive for [place] and positive for Poverty of Content Judgement: Poor Diagnostics Vital Signs (24Hr): Vital Signs - 24 hr 06/26/24 20:00 06/27/24 06:02 06/27/24 07:38 Temperature 98.1 F 97.8 F 98.4 F Pulse Rate 92 89 75 Respiratory Rate 18 20 20 Blood Pressure 133/80 156/70 H 149/74 H Pulse Oximetry 96 97 97 Oxygen Delivery Method Room Air Room Air Oxygen Flow Rate 06/27/24 08:21 06/27/24 08:26 06/27/24 08:31 Temperature 97.9 F Pulse Rate 81 95 96 Respiratory Rate 18 16 16 Blood Pressure 107/64 132/63 135/71 Pulse Oximetry 93 92 95 Oxygen Delivery Method Nasal Cannula with ETCO2 Nasal Cannula with ETCO2 Nasal Cannula with ETCO2 Oxygen Flow Rate 2 2 2 06/27/24 08:35 06/27/24 08:50 06/27/24 09:05 Temperature Pulse Rate 95 92 83 Respiratory Rate 16 16 16 Blood Pressure 138/77 143/74 H 139/72 Pulse Oximetry 95 93 96 Oxygen Delivery Method Nasal Cannula with ETCO2 Room Air Room Air Oxygen Flow Rate 2 06/27/24 09:20 06/27/24 11:44 Temperature 97.9 F 97.0 F Pulse Rate 85 88 Respiratory Rate 16 16 Blood Pressure 143/75 H 145/82 H Pulse Oximetry 96 96 Oxygen Delivery Method Room Air Room Air Oxygen Flow Rate BMI result Body Mass Index 22.8 Labs 05/04/24 15:03 05/22/24 08:03 Imaging Radiology Impressions: ITS Impressions Head CT 05/16/24 14:30 IMPRESSION: There are no acute bleeds or territorial infarcts. No masses are demonstrated. Brain parenchymal attenuation is unremarkable. Medications Medications Current Medications Acetaminophen (Acetaminophen 325 Mg Tablet) 650 mg PO Q6H PRN PRN Reason: Headache/Pain Mild Scale (1-3) Last Admin: 06/25/24 13:07 Dose: 650 mg Al Hydroxide/Mg Hydroxide (Magnesium Hydrox/Alum Hydrox 30 Ml Oral.Susp) 30 ml PO Q6H PRN PRN Reason: Heartburn/Nausea Aripiprazole (Aripiprazole 20 Mg Tablet) 20 mg PO BEDTIME [facility] Last Admin: 06/26/24 21:56 Dose: Not Given Benztropine Mesylate (Benztropine Mesylate 0.5 Mg Tablet) 0.5 mg PO BID [facility] Last Admin: 06/27/24 11:47 Dose: 0.5 mg Bisacodyl (Bisacodyl 10 Mg Supp.Rect) 10 mg [place] DAILY PRN PRN Reason: Constipation Divalproex Sodium (Divalproex Sodium Er 250 Mg Tab.Er.24h) 750 mg PO BEDTIME [facility] Last Admin: 06/26/24 21:56 Dose: Not Given Docusate Sodium (Docusate Sodium 100 Mg Capsule) 200 mg PO BID [facility] Last Admin: 06/27/24 11:47 Dose: 200 mg Famotidine (Famotidine 20 Mg Tablet) 20 mg PO DAILY [facility] Last Admin: 06/27/24 11:47 Dose: 20 mg Haloperidol (Haloperidol 5 Mg Tablet) 5 mg PO Q6H PRN PRN Reason: Psychosis Last Admin: 06/25/24 13:27 Dose: 5 mg Haloperidol (Haloperidol 1 Mg Tablet) 2 mg PO TID [facility] Last Admin: 06/27/24 11:47 Dose: 2 mg Haloperidol Lactate (Haloperidol Lactate 5 Mg/Ml Vial) 5 mg IM TID PRN PRN Reason: Refusal antipsychotics Last Admin: 06/26/24 21:55 Dose: 5 mg Lisinopril (Lisinopril 2.5 Mg Tablet) 2.5 mg PO DAILY [facility]; Protocol Last Admin: 06/27/24 11:47 Dose: 2.5 mg Lorazepam (Lorazepam 1 Mg Tablet) 2 mg PO TID PRN PRN Reason: agitation Last Admin: 06/24/24 15:19 Dose: 2 mg Magnesium Hydroxide (Milk Of Magnesia 30 Ml Oral.Susp) 30 ml PO DAILY PRN PRN Reason: Constipation Last Admin: 05/25/24 09:57 Dose: 30 ml Ondansetron HCl (Ondansetron Odt 4 Mg Tab.Rapdis) 8 mg TRANSLINGU Q8H PRN PRN Reason: Nausea and Vomiting Last Admin: 05/26/24 11:02 Dose: 8 mg Polyethylene Glycol (Polyethylene Glycol 3350 17 Gm Powd.Pack) 17 gm PO DAILY PRN PRN Reason: constipation Last Admin: 05/15/24 17:41 Dose: 17 gm Quetiapine Fumarate (Quetiapine Fumarate 200 Mg Tablet) 200 mg PO BEDTIME [facility] Last Admin: 06/26/24 21:57 Dose: Not Given Sodium Biphosphate/Sodium Phosphate (Sodium Phosphate,[place]-Dibasic 133 Ml Enema) 133 ml [place] ONCE PRN PRN Reason: severe constipation Last Admin: 05/13/24 18:19 Dose: 133 ml Trazodone HCl (Trazodone Hcl 50 Mg Tablet) 50 mg PO BEDTIME MRX1 PRN PRN Reason: Insomnia Last Admin: 06/19/24 21:55 Dose: 50 mg Allergies Allergies Allergy/AdvReac Type Severity Reaction Status Date / Time No Known Allergies Allergy Verified 05/04/24 15:04 Assessment & Plan Assessment & Plan (1) Bipolar 1 disorder: Status: Acute Code(s): F31.9 - Bipolar disorder, unspecified Plan 74 y/o F currently admitted to psych for bipolar disorder for possible selena - need ECT. Bipolar dis ,selena : continue management for bipolar by psych head ct last month seems fine ekg-nsr no new symtpoms had ect in past that helped as per staff Patient currently does not had contradictions to Ect procedure(rcri class 1 risk). Plan 1. Start ECT. 2. Continue with Abilify and other medications. 3. Reassessment with results. Reason for continued inpatient stay Substantial Risk for: inability to function, rapid decompensation and med/psych decompensation Time Spent With Patient Time: Total time managing care of this patient today __20__ minutes.
[2024-06-27] MEDS: Haloperidol Lactate 5 MG/ML VIAL IM (22:06)
[2024-06-28 08:00] VITALS: BP 123/63; PULSE 72; RESP 18; O2SAT 99
[2024-06-28] MEDS: Benztropine Mesylate 0.5 MG TABLET PO ×2 (08:28→20:05)
[2024-06-28] MEDS: lisinopriL 2.5 MG TABLET PO (08:28)
[2024-06-28] MEDS: HaloperidoL 1 MG TABLET 2 MG PO ×3 (08:28→20:05)
[2024-06-28] MEDS: Famotidine 20 MG TABLET PO (08:28)
[2024-06-28] MEDS: Docusate Sodium 100 MG CAPSULE 200 MG PO ×2 (08:28→20:05)
--- NOTE | 2024-06-28 17:24 | P.PNPSI_ITS ---
Subjective Subjective Date of Service: 06/28/24 Reason For Visit: Psychosis Subjective Notes: Conditional Voluntary Healthcare Proxy: Yes (Affirmed healthcare proxy) Interim History: Patient markedly improved much more cooperative with care no irritability agitation noted has shown a clear response to ECT Mental Status Exam Mental Status Exam Patient Appearance: Appropriate Patient Orientation: Person, Place and Situation Level of Consciousness: Awake and Follows Commands Patient Behavior: Appropriate Mood Description: Withdrawn and Appropriate Affect Description: Calm Patient Cognition Impaired: Yes Ability to Follow Directions: Good Speech Pattern: Clear Hallucinations: None Delusions: Paranoid Ideation and Grandiose Thought Process: Distracted and Slowed Thinking Thought Content: positive for [place] and positive for Poverty of Content Judgement: Poor Diagnostics Vital Signs (24Hr): Vital Signs - 24 hr 06/28/24 08:00 Pulse Rate 72 Respiratory Rate 18 Blood Pressure 123/63 Pulse Oximetry 99 Oxygen Delivery Method Room Air BMI result Body Mass Index 22.8 Labs 05/04/24 15:03 05/22/24 08:03 Imaging Radiology Impressions: ITS Impressions Head CT 05/16/24 14:30 IMPRESSION: There are no acute bleeds or territorial infarcts. No masses are demonstrated. Brain parenchymal attenuation is unremarkable. Medications Medications Current Medications Acetaminophen (Acetaminophen 325 Mg Tablet) 650 mg PO Q6H PRN PRN Reason: Headache/Pain Mild Scale (1-3) Last Admin: 06/25/24 13:07 Dose: 650 mg Al Hydroxide/Mg Hydroxide (Magnesium Hydrox/Alum Hydrox 30 Ml Oral.Susp) 30 ml PO Q6H PRN PRN Reason: Heartburn/Nausea Aripiprazole (Aripiprazole 20 Mg Tablet) 20 mg PO BEDTIME [facility] Last Admin: 06/27/24 22:17 Dose: Not Given Benztropine Mesylate (Benztropine Mesylate 0.5 Mg Tablet) 0.5 mg PO BID [facility] Last Admin: 06/28/24 08:28 Dose: 0.5 mg Bisacodyl (Bisacodyl 10 Mg Supp.Rect) 10 mg [place] DAILY PRN PRN Reason: Constipation Divalproex Sodium (Divalproex Sodium Er 250 Mg Tab.Er.24h) 750 mg PO BEDTIME [facility] Last Admin: 06/27/24 22:17 Dose: Not Given Docusate Sodium (Docusate Sodium 100 Mg Capsule) 200 mg PO BID [facility] Last Admin: 06/28/24 08:28 Dose: 200 mg Famotidine (Famotidine 20 Mg Tablet) 20 mg PO DAILY [facility] Last Admin: 06/28/24 08:28 Dose: 20 mg Haloperidol (Haloperidol 5 Mg Tablet) 5 mg PO Q6H PRN PRN Reason: Psychosis Last Admin: 06/25/24 13:27 Dose: 5 mg Haloperidol (Haloperidol 1 Mg Tablet) 2 mg PO TID [facility] Last Admin: 06/28/24 16:07 Dose: 2 mg Haloperidol Lactate (Haloperidol Lactate 5 Mg/Ml Vial) 5 mg IM TID PRN PRN Reason: Refusal antipsychotics Last Admin: 06/27/24 22:06 Dose: 5 mg Lisinopril (Lisinopril 2.5 Mg Tablet) 2.5 mg PO DAILY [facility]; Protocol Last Admin: 06/28/24 08:28 Dose: 2.5 mg Lorazepam (Lorazepam 1 Mg Tablet) 2 mg PO TID PRN PRN Reason: agitation Last Admin: 06/24/24 15:19 Dose: 2 mg Magnesium Hydroxide (Milk Of Magnesia 30 Ml Oral.Susp) 30 ml PO DAILY PRN PRN Reason: Constipation Last Admin: 05/25/24 09:57 Dose: 30 ml Ondansetron HCl (Ondansetron Odt 4 Mg Tab.Rapdis) 8 mg TRANSLINGU Q8H PRN PRN Reason: Nausea and Vomiting Last Admin: 05/26/24 11:02 Dose: 8 mg Polyethylene Glycol (Polyethylene Glycol 3350 17 Gm Powd.Pack) 17 gm PO DAILY PRN PRN Reason: constipation Last Admin: 05/15/24 17:41 Dose: 17 gm Quetiapine Fumarate (Quetiapine Fumarate 200 Mg Tablet) 200 mg PO BEDTIME [facility] Last Admin: 06/27/24 22:18 Dose: Not Given Sodium Biphosphate/Sodium Phosphate (Sodium Phosphate,[place]-Dibasic 133 Ml Enema) 133 ml [place] ONCE PRN PRN Reason: severe constipation Last Admin: 05/13/24 18:19 Dose: 133 ml Trazodone HCl (Trazodone Hcl 50 Mg Tablet) 50 mg PO BEDTIME MRX1 PRN PRN Reason: Insomnia Last Admin: 06/19/24 21:55 Dose: 50 mg Allergies Allergies Allergy/AdvReac Type Severity Reaction Status Date / Time No Known Allergies Allergy Verified 05/04/24 15:04 Assessment & Plan Assessment & Plan (1) Bipolar 1 disorder: Status: Acute Code(s): F31.9 - Bipolar disorder, unspecified Plan 74 y/o F currently admitted to psych for bipolar disorder for possible selena - need ECT. Bipolar dis ,selena : continue management for bipolar by psych head ct last month seems fine ekg-nsr no new symtpoms had ect in past that helped as per staff Patient currently does not had contradictions to Ect procedure(rcri class 1 risk). Plan 1. Start ECT. 2. Continue with Abilify and other medications. 3. Reassessment with results. 06/28/2024 Continue ECT patient showing good response Informed Consent: understands Reason for continued inpatient stay Substantial Risk for: inability to function and rapid decompensation Time Spent With Patient Time: Total time managing care of this patient today ____ minutes.
[2024-06-28 17:59] VITALS: BMI 22.3
[2024-06-28 20:00] VITALS: BP 144/64; PULSE 76; RESP 16; TEMP 36.3; O2SAT 99
[2024-06-28] MEDS: ARIPiprazole 20 MG TABLET PO (20:04)
[2024-06-28] MEDS: QUEtiapine Fumarate 200 MG TABLET PO (20:04)
[2024-06-28] MEDS: Divalproex Sodium ER 250 MG TAB.ER.24H 750 MG PO (20:05)
[2024-06-29] VITALS (11 sets, daily range): BP systolic 114–163; BP diastolic 59–81; PULSE 7–82; RESP 15–18; TEMP 36.2–36.7; O2SAT 94–99
--- NOTE | 2024-06-29 06:49 | HO.ANESPROP2 ---
[facility] Active Problems Active Problems: All Active Problems (Updated 05/09/24 @ 15:34 by Sylvester Leary MD) Dementia (Acute) Bipolar 1 disorder (Acute) Family History Family history of problems with anesthesia: No Surgical History History of Problems with Anesthesia: No Social History Social History Household Members: Children Housing: House Patient Tobacco Use Status: Never used Tobacco Smoked in Last 30 Days: No Use of substances other than those prescribed or required for medical reasons: No Currently Displaying Signs/Symptoms of Drug Intoxication Withdrawal: No Have you been hit, kicked, punched, or otherwise hurt by someone within the past year? If so, by whom?: No Do you feel safe in your current relationship?: No Current Relationship Is there a partner from a previous relationship who is making you feel unsafe now?: No Are you made to feel afraid or neglected: No Advance Directives: No Advance Directives Information Provided: No Do you have thoughts of harming others: None Do you have a plan to hurt others: No Plan Recently lost weight without trying: No Nutrition Risks: No Nutritional Risk Patient : No : No Sexual orientation: Straight/Heterosexual Meds Allergies Allergy/AdvReac Type Severity Reaction Status Date / Time No Known Allergies Allergy Verified 05/04/24 15:04 Active Medications: Current Medications Acetaminophen (Acetaminophen 325 Mg Tablet) 650 mg PO Q6H PRN PRN Reason: Headache/Pain Mild Scale (1-3) Last Admin: 06/25/24 13:07 Dose: 650 mg Al Hydroxide/Mg Hydroxide (Magnesium Hydrox/Alum Hydrox 30 Ml Oral.Susp) 30 ml PO Q6H PRN PRN Reason: Heartburn/Nausea Aripiprazole (Aripiprazole 20 Mg Tablet) 20 mg PO BEDTIME [facility] Last Admin: 06/28/24 20:04 Dose: 20 mg Benztropine Mesylate (Benztropine Mesylate 0.5 Mg Tablet) 0.5 mg PO BID [facility] Last Admin: 06/28/24 20:05 Dose: 0.5 mg Bisacodyl (Bisacodyl 10 Mg Supp.Rect) 10 mg SC DAILY PRN PRN Reason: Constipation Divalproex Sodium (Divalproex Sodium Er 250 Mg Tab.Er.24h) 750 mg PO BEDTIME [facility] Last Admin: 06/28/24 20:05 Dose: 750 mg Docusate Sodium (Docusate Sodium 100 Mg Capsule) 200 mg PO BID [facility] Last Admin: 06/28/24 20:05 Dose: 200 mg Famotidine (Famotidine 20 Mg Tablet) 20 mg PO DAILY [facility] Last Admin: 06/28/24 08:28 Dose: 20 mg Haloperidol (Haloperidol 5 Mg Tablet) 5 mg PO Q6H PRN PRN Reason: Psychosis Last Admin: 06/25/24 13:27 Dose: 5 mg Haloperidol (Haloperidol 1 Mg Tablet) 2 mg PO TID [facility] Last Admin: 06/28/24 20:05 Dose: 2 mg Haloperidol Lactate (Haloperidol Lactate 5 Mg/Ml Vial) 5 mg IM TID PRN PRN Reason: Refusal antipsychotics Last Admin: 06/27/24 22:06 Dose: 5 mg Lactated Ringer's (Lr) 1,000 mls @ 50 mls/hr IVCONT .Q20H [facility] Lisinopril (Lisinopril 2.5 Mg Tablet) 2.5 mg PO DAILY [facility]; Protocol Last Admin: 06/28/24 08:28 Dose: 2.5 mg Lorazepam (Lorazepam 1 Mg Tablet) 2 mg PO TID PRN PRN Reason: agitation Last Admin: 06/24/24 15:19 Dose: 2 mg Magnesium Hydroxide (Milk Of Magnesia 30 Ml Oral.Susp) 30 ml PO DAILY PRN PRN Reason: Constipation Last Admin: 05/25/24 09:57 Dose: 30 ml Ondansetron HCl (Ondansetron Odt 4 Mg Tab.Rapdis) 8 mg TRANSLINGU Q8H PRN PRN Reason: Nausea and Vomiting Last Admin: 05/26/24 11:02 Dose: 8 mg Polyethylene Glycol (Polyethylene Glycol 3350 17 Gm Powd.Pack) 17 gm PO DAILY PRN PRN Reason: constipation Last Admin: 05/15/24 17:41 Dose: 17 gm Quetiapine Fumarate (Quetiapine Fumarate 200 Mg Tablet) 200 mg PO BEDTIME [facility] Last Admin: 06/28/24 20:04 Dose: 200 mg Sodium Biphosphate/Sodium Phosphate (Sodium Phosphate,[place]-Dibasic 133 Ml Enema) 133 ml SC ONCE PRN PRN Reason: severe constipation Last Admin: 05/13/24 18:19 Dose: 133 ml Trazodone HCl (Trazodone Hcl 50 Mg Tablet) 50 mg PO BEDTIME MRX1 PRN PRN Reason: Insomnia Last Admin: 06/19/24 21:55 Dose: 50 mg Home Medications ?Medication ?Instructions ?Recorded ?Confirmed ?Last Taken ?Type benztropine 0.5 mg tablet 0.5 mg PO BEDTIME 05/04/24 05/04/24 Unknown History divalproex 250 mg tablet,extended 250 mg PO BEDTIME 05/04/24 05/04/24 Unknown History release 24 hr lamotrigine 100 mg tablet 100 mg PO BEDTIME 05/04/24 05/04/24 Unknown History lisinopril 5 mg tablet 2.5 mg PO DAILY 05/04/24 05/04/24 Unknown History quetiapine 100 mg tablet 100 mg PO DAILY 05/04/24 05/04/24 Unknown History quetiapine 300 mg tablet 300 mg PO BEDTIME 05/04/24 05/04/24 Unknown History quetiapine 50 mg tablet 50 mg PO BID PRN Agitation 05/04/24 05/04/24 Unknown History Exam Height,Weight and Vital Signs: Height 5 ft Weight 51.766 kg Last Vital Signs Temp 97.5 F 06/29/24 06:41 Pulse 57 06/29/24 06:41 Resp 16 06/29/24 06:41 BP 117/62 06/29/24 06:41 Pulse Ox 97 06/29/24 06:41 O2 Del Method Room Air 06/29/24 06:41 O2 Flow Rate 2 06/27/24 08:35 Pertinent Lab Results Pertinent Lab Results: Laboratory Tests 05/04/24 05/05/24 05/05/24 15:03 12:44 13:08 WBC 4.9 RBC 4.49 Hgb 13.4 Hct 40.3 MCV 89.8 MCH 29.8 MCHC 33.3 RDW 13.4 Plt Count 215 MPV 9.1 L Immature Gran % (Auto) 0.2 Neut % (Auto) 51.7 Lymph % (Auto) 32.9 [place] % (Auto) 11.1 H Eos % (Auto) 3.5 Baso % (Auto) 0.6 Lymph # (Auto) 1.6 [place] # (Auto) 0.5 Eos # (Auto) 0.2 Baso # (Auto) 0.0 Abs Immat Gran (auto) 0.01 Absolute Neuts (auto) 2.5 Absolute Nucleated RBC 0.000 Nucleated RBC % (auto) 0.0 Hold Purple Top Sodium 141 Potassium 4.0 Chloride 102 Carbon Dioxide 31 H Anion Gap 12 BUN 19 H Creatinine 1.08 Estim Creat Clear Calc 37.5 Estimated GFR 50 Random Glucose 104 Fasting Glucose Calcium 9.4 Magnesium 2.3 Total Bilirubin 0.6 Direct Bilirubin AST 18 ALT 13 Alkaline Phosphatase 122 H Ammonia Total Protein 7.5 Albumin 4.2 Triglycerides Cholesterol LDL Cholesterol, Calc HDL Cholesterol TSH 1.25 Hold Yellow Top See Note Urine Color Urine Appearance Urine pH Ur Specific [place] Urine Protein Urine Glucose (UA) Urine Ketones Urine Blood Urine Nitrite Ur Leukocyte Esterase Urine RBC Urine WBC Ur Squamous Epith Cells Urine Bacteria Hyaline Casts Salicylates < 5.0 L Urine Opiates Screen Ur Buprenorphine Scrn Ur Oxycodone Screen Urine Methadone Screen Urine Fentanyl Screen Acetaminophen < 3 Ur Barbiturates Screen Valproic Acid < 12.5 L Ur Phencyclidine Scrn Ur Amphetamines Screen U Benzodiazepines Scrn Urine Cocaine Screen U Marijuana (THC) Screen Ethyl Alcohol < 10 05/05/24 05/09/24 05/16/24 13:16 08:10 20:12 WBC RBC Hgb Hct MCV MCH MCHC RDW Plt Count MPV Immature Gran % (Auto) Neut % (Auto) Lymph % (Auto) [place] % (Auto) Eos % (Auto) Baso % (Auto) Lymph # (Auto) [place] # (Auto) Eos # (Auto) Baso # (Auto) Abs Immat Gran (auto) Absolute Neuts (auto) Absolute Nucleated RBC Nucleated RBC % (auto) Hold Purple Top SEE NOTE Sodium 138 143 Potassium 3.8 4.1 Chloride 101 104 Carbon Dioxide 30 H 27 Anion Gap 11 L 16 BUN 27 H 26 H Creatinine 1.24 0.90 Estim Creat Clear Calc 32.6 44.6 Estimated GFR 43 > 60 Random Glucose 130 H Fasting Glucose 112 H Calcium 9.3 9.2 Magnesium Total Bilirubin 0.9 0.6 Direct Bilirubin 0.2 AST 18 15 ALT 12 10 Alkaline Phosphatase 100 96 Ammonia 25 Total Protein 7.3 6.7 Albumin 4.1 3.8 Triglycerides 61 Cholesterol 157 LDL Cholesterol, Calc 100 H HDL Cholesterol 45 TSH Hold Yellow Top Urine Color Yellow Urine Appearance Clear Urine pH 7.0 Ur Specific [place] 1.020 Urine Protein Negative Urine Glucose (UA) Negative Urine Ketones Negative Urine Blood Negative Urine Nitrite Negative Ur Leukocyte Esterase Moderate (2+) H Urine RBC 0-2 Urine WBC 0-5 Ur Squamous Epith Cells 0-2 Urine Bacteria None Seen Hyaline Casts 0-2 Salicylates Urine Opiates Screen Not Detected Ur Buprenorphine Scrn Not Detected Ur Oxycodone Screen Not Detected Urine Methadone Screen Not Detected Urine Fentanyl Screen Not Detected Acetaminophen Ur Barbiturates Screen Not Detected Valproic Acid 50.2 Ur Phencyclidine Scrn Not Detected Ur Amphetamines Screen Not Detected U Benzodiazepines Scrn Not Detected Urine Cocaine Screen Not Detected U Marijuana (THC) Screen Not Detected Ethyl Alcohol 05/21/24 05/22/24 05/24/24 08:09 08:03 18:05 WBC RBC Hgb Hct MCV MCH MCHC RDW Plt Count MPV Immature Gran % (Auto) Neut % (Auto) Lymph % (Auto) [place] % (Auto) Eos % (Auto) Baso % (Auto) Lymph # (Auto) [place] # (Auto) Eos # (Auto) Baso # (Auto) Abs Immat Gran (auto) Absolute Neuts (auto) Absolute Nucleated RBC Nucleated RBC % (auto) Hold Purple Top Sodium 143 Potassium 3.9 Chloride 105 Carbon Dioxide 29 Anion Gap 13 BUN 31 H Creatinine 1.11 Estim Creat Clear Calc 36.0 Estimated GFR 48 Random Glucose Fasting Glucose 81 Calcium 9.5 Magnesium Total Bilirubin 0.5 Direct Bilirubin AST 17 ALT 9 Alkaline Phosphatase 89 Ammonia 20 Total Protein 7.1 Albumin 4.1 Triglycerides Cholesterol LDL Cholesterol, Calc HDL Cholesterol TSH Hold Yellow Top Urine Color Urine Appearance Urine pH Ur Specific [place] Urine Protein Urine Glucose (UA) Urine Ketones Urine Blood Urine Nitrite Ur Leukocyte Esterase Urine RBC Urine WBC Ur Squamous Epith Cells Urine Bacteria Hyaline Casts Salicylates Urine Opiates Screen Ur Buprenorphine Scrn Ur Oxycodone Screen Urine Methadone Screen Urine Fentanyl Screen Acetaminophen Ur Barbiturates Screen Valproic Acid 142.5 H* 142.8 H* 113.4 H* Ur Phencyclidine Scrn Ur Amphetamines Screen U Benzodiazepines Scrn Urine Cocaine Screen U Marijuana (THC) Screen Ethyl Alcohol 05/27/24 05/30/24 10:04 09:29 WBC RBC Hgb Hct MCV MCH MCHC RDW Plt Count MPV Immature Gran % (Auto) Neut % (Auto) Lymph % (Auto) [place] % (Auto) Eos % (Auto) Baso % (Auto) Lymph # (Auto) [place] # (Auto) Eos # (Auto) Baso # (Auto) Abs Immat Gran (auto) Absolute Neuts (auto) Absolute Nucleated RBC Nucleated RBC % (auto) Hold Purple Top Sodium Potassium Chloride Carbon Dioxide Anion Gap BUN Creatinine Estim Creat Clear Calc Estimated GFR Random Glucose Fasting Glucose Calcium Magnesium Total Bilirubin Direct Bilirubin AST ALT Alkaline Phosphatase Ammonia Total Protein Albumin Triglycerides Cholesterol LDL Cholesterol, Calc HDL Cholesterol TSH Hold Yellow Top Urine Color Urine Appearance Urine pH Ur Specific [place] Urine Protein Urine Glucose (UA) Urine Ketones Urine Blood Urine Nitrite Ur Leukocyte Esterase Urine RBC Urine WBC Ur Squamous Epith Cells Urine Bacteria Hyaline Casts Salicylates Urine Opiates Screen Ur Buprenorphine Scrn Ur Oxycodone Screen Urine Methadone Screen Urine Fentanyl Screen Acetaminophen Ur Barbiturates Screen Valproic Acid 116.9 H* 114.7 H* Ur Phencyclidine Scrn Ur Amphetamines Screen U Benzodiazepines Scrn Urine Cocaine Screen U Marijuana (THC) Screen Ethyl Alcohol Airway Mallampati Class: II (edentulous on top) TM Dist: >3cm Neck ROM: Full Heart: rrr Lungs: cta Assessment and Plan Assessment Anesthesia Assessment: Anesthesia Plan Discussed and Chart Reviewed Final Anesthetic Review Family History of Problems with Anesthesia: No History of Problems with Anesthesia: No NPO: Yes ASA Class: III Final Preanesthetic Review: No Changes in Pt Med Stat, Meds/Allgs Chart Reviewed and Consent Obtained/Reviewed Patient Risk: Intermediate Procedure Risk: Intermediate Anesthetic Plan Anesthetic Plan: GA Disposition: Standard PACU
--- NOTE | 2024-06-29 07:26 | MHC.SHP ---
Pre-Procedural Eval Section A - 24 Hr Update-Section A only Date of Service: 06/29/24 The patient is an INPATIENT: Yes Changes since office visit: Yes Patient answered all questions; No Cold of Flu in the past 2 weeks, No New Medical Problems and No Changes in Medication The patient has been examined within 24 hours of the surgical procedure. The History & Physical has been completed within 30 days and I have reviewed it.: Yes Section B - Complete if H&P > 30 days Chief Complaint: Psychosis Allergies: Allergies Allergy/AdvReac Type Severity Reaction Status Date / Time No Known Allergies Allergy Verified 05/04/24 15:04 Plan I have reviewed the history and physical and performed a pertinent physical examination on my patient. No changes have occurred unless specified. Time Spent With Patient Time: Total time managing care of this patient today ____ minutes.
--- NOTE | 2024-06-29 07:26 | HO.ECTPROC ---
ECT Procedure Note Diagnosis/Treatment Date of Service: 06/29/24 Diagnosis: Bipolar disorder Previous ECT Date: 06/27/24 Current Treatment Number: 2 Treatment: Series Interval Clinical Notes: Pt doing better no gross psychosis doing well with ect Time: Total time managing care of this patient today ____ minutes. ECT Settings Device: THYMATRON DGx Electrode Placement: Bitemporal Program/Pulse Width: 0.50 Energy Percent: 100 Seizure Duration By EEG (in seconds): 49 Medications Administration General Anesthetic: Etomidate (12) Muscle Relaxant: Succinylcholine (80) Airway Management Airway Management: Bag Mask Ventilation Treatment Recommendations No Changes Recommended: No change Notes: Patient showing marked improvement Pt Tolerated Procedure w/o Issue: Yes
--- NOTE | 2024-06-29 07:48 | HO.PSYCHPN ---
Subjective Subjective Reason For Visit: Psychosis Diagnostics Vital Signs (24Hr): Vital Signs - 24 hr 06/28/24 08:00 06/28/24 20:00 06/29/24 06:20 Temperature 97.3 F 97.1 F Pulse Rate 72 76 63 Respiratory Rate 18 16 16 Blood Pressure 123/63 144/64 H 114/64 Pulse Oximetry 99 99 99 Oxygen Delivery Method Room Air Room Air 06/29/24 06:41 Temperature 97.5 F Pulse Rate 57 Respiratory Rate 16 Blood Pressure 117/62 Pulse Oximetry 97 Oxygen Delivery Method Room Air BMI result Body Mass Index 22.3 Labs 05/04/24 15:03 05/22/24 08:03 Imaging Radiology Impressions: ITS Impressions Head CT 05/16/24 14:30 IMPRESSION: There are no acute bleeds or territorial infarcts. No masses are demonstrated. Brain parenchymal attenuation is unremarkable. Medications Medications Current Medications Acetaminophen (Acetaminophen 325 Mg Tablet) 650 mg PO Q6H PRN PRN Reason: Headache/Pain Mild Scale (1-3) Last Admin: 06/25/24 13:07 Dose: 650 mg Al Hydroxide/Mg Hydroxide (Magnesium Hydrox/Alum Hydrox 30 Ml Oral.Susp) 30 ml PO Q6H PRN PRN Reason: Heartburn/Nausea Aripiprazole (Aripiprazole 20 Mg Tablet) 20 mg PO BEDTIME COUNTS [facility]CLUDE 234 BEDS AT THE [facility] Last Admin: 06/28/24 20:04 Dose: 20 mg Benztropine Mesylate (Benztropine Mesylate 0.5 Mg Tablet) 0.5 mg PO BID COUNTS [facility]CLUDE 234 BEDS AT THE [facility] Last Admin: 06/28/24 20:05 Dose: 0.5 mg Bisacodyl (Bisacodyl 10 Mg Supp.Rect) 10 mg [place] DAILY PRN PRN Reason: Constipation Divalproex Sodium (Divalproex Sodium Er 250 Mg Tab.Er.24h) 750 mg PO BEDTIME COUNTS [facility]CLUDE 234 BEDS AT THE [facility] Last Admin: 06/28/24 20:05 Dose: 750 mg Docusate Sodium (Docusate Sodium 100 Mg Capsule) 200 mg PO BID COUNTS [facility]CLUDE 234 BEDS AT THE [facility] Last Admin: 06/28/24 20:05 Dose: 200 mg Famotidine (Famotidine 20 Mg Tablet) 20 mg PO DAILY COUNTS INCLUDE 234 BEDS AT THE [facility] Last Admin: 06/28/24 08:28 Dose: 20 mg Haloperidol (Haloperidol 5 Mg Tablet) 5 mg PO Q6H PRN PRN Reason: Psychosis Last Admin: 06/25/24 13:27 Dose: 5 mg Haloperidol (Haloperidol 1 Mg Tablet) 2 mg PO TID [facility] Last Admin: 06/28/24 20:05 Dose: 2 mg Haloperidol Lactate (Haloperidol Lactate 5 Mg/Ml Vial) 5 mg IM TID PRN PRN Reason: Refusal antipsychotics Last Admin: 06/27/24 22:06 Dose: 5 mg Lactated Ringer's (Lr) 1,000 mls @ 50 mls/hr IVCONT .Q20H [facility] Lisinopril (Lisinopril 2.5 Mg Tablet) 2.5 mg PO DAILY [facility]; Protocol Last Admin: 06/28/24 08:28 Dose: 2.5 mg Lorazepam (Lorazepam 1 Mg Tablet) 2 mg PO TID PRN PRN Reason: agitation Last Admin: 06/24/24 15:19 Dose: 2 mg Magnesium Hydroxide (Milk Of Magnesia 30 Ml Oral.Susp) 30 ml PO DAILY PRN PRN Reason: Constipation Last Admin: 05/25/24 09:57 Dose: 30 ml Ondansetron HCl (Ondansetron Odt 4 Mg Tab.Rapdis) 8 mg TRANSLINGU Q8H PRN PRN Reason: Nausea and Vomiting Last Admin: 05/26/24 11:02 Dose: 8 mg Polyethylene Glycol (Polyethylene Glycol 3350 17 Gm Powd.Pack) 17 gm PO DAILY PRN PRN Reason: constipation Last Admin: 05/15/24 17:41 Dose: 17 gm Quetiapine Fumarate (Quetiapine Fumarate 200 Mg Tablet) 200 mg PO BEDTIME [facility] Last Admin: 06/28/24 20:04 Dose: 200 mg Sodium Biphosphate/Sodium Phosphate (Sodium Phosphate,[place]-Dibasic 133 Ml Enema) 133 ml [place] ONCE PRN PRN Reason: severe constipation Last Admin: 05/13/24 18:19 Dose: 133 ml Trazodone HCl (Trazodone Hcl 50 Mg Tablet) 50 mg PO BEDTIME MRX1 PRN PRN Reason: Insomnia Last Admin: 06/19/24 21:55 Dose: 50 mg Allergies Allergies Allergy/AdvReac Type Severity Reaction Status Date / Time No Known Allergies Allergy Verified 05/04/24 15:04 Assessment & Plan Assessment & Plan (1) Bipolar 1 disorder: Status: Acute Code(s): F31.9 - Bipolar disorder, unspecified Plan 74 y/o F currently admitted to psych for bipolar disorder for possible selena -need ECT. Bipolar dis ,selena : continue management for bipolar by psych head ct last month seems fine ekg-nsr no new symtpoms had ect in past that helped as per staff Patient currently does not had contradictions to Ect procedure(rcri class 1 risk). Plan 1. Start ECT. 2. Continue with Abilify and other medications. 3. Reassessment with results. 06/28/2024 [address] ECT patient showing good response Time Spent With Patient Time: Total time managing care of this patient today ____ minutes.
[2024-06-29] MEDS: HaloperidoL 1 MG TABLET 2 MG PO ×3 (09:24→20:16)
[2024-06-29] MEDS: lisinopriL 2.5 MG TABLET PO (09:24)
[2024-06-29] MEDS: Benztropine Mesylate 0.5 MG TABLET PO ×2 (09:24→20:16)
[2024-06-29] MEDS: Famotidine 20 MG TABLET PO (09:24)
[2024-06-29] MEDS: Docusate Sodium 100 MG CAPSULE 200 MG PO (09:25)
[2024-06-29] MEDS: Acetaminophen 325 MG TABLET 650 MG PO (09:36)
--- NOTE | 2024-06-29 14:50 | PC.NURSE ---
This senior medical writer spoke to patient's daughter, Love, and provided her with an update. This included a current medication list as well as behavioral.
[2024-06-29] MEDS: ARIPiprazole 20 MG TABLET PO (20:16)
[2024-06-29] MEDS: Divalproex Sodium ER 250 MG TAB.ER.24H 750 MG PO (20:16)
[2024-06-29] MEDS: QUEtiapine Fumarate 200 MG TABLET PO (20:16)
--- NOTE | 2024-06-30 08:56 | P.PNPSI_ITS ---
Subjective Subjective Date of Service: 06/30/24 Reason For Visit: Psychosis Interim History: Pt seen, reviewed with the team who report she slept from 1am-5am Confusion post ECT on 06/29, declined HS medications. Quiet, present, connected, intense eye contact at times. Pt walked with tw around the unit, orienting tw to different areas. She states I want to go home, but I am not well . Will I be well? Reassurance offered, which she appears to accept in this moment. Medication Compliance: Intermittent Side effects from medications: No Attending Groups: Intermittent Review of Systems Review of Systems Yes all other systems are reviewed and are negative (denies) Mental Status Exam Mental Status Exam Patient Appearance: Appropriate Patient Orientation: Person Level of Consciousness: Alert Patient Behavior: Cooperative, Distractible, Confused and Good Eye Contact Mood Description: Depressed Affect Description: Flat Patient Cognition Impaired: Yes Ability to Follow Directions: Fair Speech Pattern: Spontaneous Speech Memory Description: Remote Impaired Thought Process: Distracted Judgement: Poor Diagnostics Vital Signs (24Hr): Vital Signs - 24 hr 06/29/24 09:23 06/29/24 20:00 Temperature 97.2 F 98.1 F Pulse Rate 62 7 L Respiratory Rate 15 18 Blood Pressure 127/63 157/72 H Pulse Oximetry 98 98 Oxygen Delivery Method Room Air Room Air BMI result Body Mass Index 22.3 Labs 05/04/24 15:03 05/22/24 08:03 Imaging Radiology Impressions: ITS Impressions Head CT 05/16/24 14:30 IMPRESSION: There are no acute bleeds or territorial infarcts. No masses are demonstrated. Brain parenchymal attenuation is unremarkable. Medications Medications Current Medications Acetaminophen (Acetaminophen 325 Mg Tablet) 650 mg PO Q6H PRN PRN Reason: Headache/Pain Mild Scale (1-3) Last Admin: 06/29/24 09:36 Dose: 650 mg Al Hydroxide/Mg Hydroxide (Magnesium Hydrox/Alum Hydrox 30 Ml Oral.Susp) 30 ml PO Q6H PRN PRN Reason: Heartburn/Nausea Aripiprazole (Aripiprazole 20 Mg Tablet) 20 mg PO BEDTIME [facility] Last Admin: 06/29/24 20:16 Dose: 20 mg Benztropine Mesylate (Benztropine Mesylate 0.5 Mg Tablet) 0.5 mg PO BID [facility] Last Admin: 06/29/24 20:16 Dose: 0.5 mg Bisacodyl (Bisacodyl 10 Mg Supp.Rect) 10 mg [place] DAILY PRN PRN Reason: Constipation Divalproex Sodium (Divalproex Sodium Er 250 Mg Tab.Er.24h) 750 mg PO BEDTIME [facility] Last Admin: 06/29/24 20:16 Dose: 750 mg Docusate Sodium (Docusate Sodium 100 Mg Capsule) 200 mg PO BID [facility] Last Admin: 06/29/24 20:20 Dose: Not Given Famotidine (Famotidine 20 Mg Tablet) 20 mg PO DAILY [facility] Last Admin: 06/29/24 09:24 Dose: 20 mg Haloperidol (Haloperidol 5 Mg Tablet) 5 mg PO Q6H PRN PRN Reason: Psychosis Last Admin: 06/25/24 13:27 Dose: 5 mg Haloperidol (Haloperidol 1 Mg Tablet) 2 mg PO TID [facility] Last Admin: 06/29/24 20:16 Dose: 2 mg Haloperidol Lactate (Haloperidol Lactate 5 Mg/Ml Vial) 5 mg IM TID PRN PRN Reason: Refusal antipsychotics Last Admin: 06/27/24 22:06 Dose: 5 mg Lisinopril (Lisinopril 2.5 Mg Tablet) 2.5 mg PO DAILY [facility]; Protocol Last Admin: 06/29/24 09:24 Dose: 2.5 mg Lorazepam (Lorazepam 1 Mg Tablet) 2 mg PO TID PRN PRN Reason: agitation Last Admin: 06/24/24 15:19 Dose: 2 mg Magnesium Hydroxide (Milk Of Magnesia 30 Ml Oral.Susp) 30 ml PO DAILY PRN PRN Reason: Constipation Last Admin: 05/25/24 09:57 Dose: 30 ml Ondansetron HCl (Ondansetron Odt 4 Mg Tab.Rapdis) 8 mg TRANSLINGU Q8H PRN PRN Reason: Nausea and Vomiting Last Admin: 05/26/24 11:02 Dose: 8 mg Polyethylene Glycol (Polyethylene Glycol 3350 17 Gm Powd.Pack) 17 gm PO DAILY PRN PRN Reason: constipation Last Admin: 05/15/24 17:41 Dose: 17 gm Quetiapine Fumarate (Quetiapine Fumarate 200 Mg Tablet) 200 mg PO BEDTIME [facility] Last Admin: 06/29/24 20:16 Dose: 200 mg Sodium Biphosphate/Sodium Phosphate (Sodium Phosphate,[place]-Dibasic 133 Ml Enema) 133 ml [place] ONCE PRN PRN Reason: severe constipation Last Admin: 05/13/24 18:19 Dose: 133 ml Trazodone HCl (Trazodone Hcl 50 Mg Tablet) 50 mg PO BEDTIME MRX1 PRN PRN Reason: Insomnia Last Admin: 06/19/24 21:55 Dose: 50 mg Allergies Allergies Allergy/AdvReac Type Severity Reaction Status Date / Time No Known Allergies Allergy Verified 05/04/24 15:04 Assessment & Plan Assessment & Plan (1) Bipolar 1 disorder: Status: Acute Code(s): F31.9 - Bipolar disorder, unspecified Plan 74 y/o F currently admitted to psych for bipolar disorder for possible selena - need ECT. Bipolar dis ,selena : continue management for bipolar by psych head ct last month seems fine ekg-nsr no new symtpoms had ect in past that helped as per staff Patient currently does not had contradictions to Ect procedure(rcri class 1 risk). Plan 1. Start ECT. 2. Continue with Abilify and other medications. 3. Reassessment with results. 06/28/2024 [address] E[address] patient showing good response 06/30- continue tx Reason for continued inpatient stay Substantial Risk for: rapid decompensation Time Spent With Patient Time: Total time managing care of this patient today ____ minutes.
[2024-06-30 09:03] VITALS: BP 147/70; PULSE 79; RESP 16; TEMP 36; O2SAT 99
[2024-06-30] MEDS: lisinopriL 2.5 MG TABLET PO (09:05)
[2024-06-30] MEDS: HaloperidoL 1 MG TABLET 2 MG PO ×3 (09:06→20:27)
[2024-06-30] MEDS: Famotidine 20 MG TABLET PO (09:06)
[2024-06-30] MEDS: Benztropine Mesylate 0.5 MG TABLET PO ×2 (09:06→20:26)
[2024-06-30 20:00] VITALS: BP 147/78; PULSE 83; TEMP 37.1; O2SAT 99
[2024-06-30] MEDS: ARIPiprazole 20 MG TABLET PO (20:26)
[2024-06-30] MEDS: Divalproex Sodium ER 250 MG TAB.ER.24H 750 MG PO (20:26)
[2024-06-30] MEDS: traZODone HCL 50 MG TABLET PO (20:27)
[2024-06-30] MEDS: QUEtiapine Fumarate 200 MG TABLET PO (20:27)
[2024-07-01 09:03] VITALS: BP 109/56; PULSE 73; RESP 16; TEMP 36.7; O2SAT 97
[2024-07-01] MEDS: HaloperidoL 1 MG TABLET 2 MG PO ×3 (09:05→20:05)
[2024-07-01] MEDS: Famotidine 20 MG TABLET PO (09:05)
[2024-07-01] MEDS: lisinopriL 2.5 MG TABLET PO (09:05)
[2024-07-01] MEDS: Benztropine Mesylate 0.5 MG TABLET PO ×2 (09:06→20:05)
--- NOTE | 2024-07-01 16:18 | HO.PSYCHPN ---
Subjective Subjective Date of Service: 07/01/24 Reason For Visit: Psychosis Interim History: Pt seen, reviewed with team. Less talkative today, walking, alert, attentive to environment, spontaneous smile, Hello . Team reports pt was up at 1am, walking near the doors, difficult to redirect to return to the main milieu area. Medication Compliance: Intermittent Review of Systems Medical Review of Systems: unchanged Review of Systems Review of Systems Yes all other systems are reviewed and are negative Mental Status Exam Mental Status Exam Patient Appearance: Appropriate Patient Orientation: Person Level of Consciousness: Alert Patient Behavior: Cooperative, Distractible, Confused and Good Eye Contact Mood Description: Depressed Affect Description: Flat Patient Cognition Impaired: Yes Ability to Follow Directions: Fair Speech Pattern: Spontaneous Speech Memory Description: Remote Impaired Thought Process: Distracted Judgement: Poor Diagnostics Vital Signs (24Hr): Vital Signs - 24 hr 06/30/24 20:00 07/01/24 09:03 Temperature 98.8 F 98.1 F Pulse Rate 83 73 Respiratory Rate 16 Blood Pressure 147/78 H 109/56 L Pulse Oximetry 99 97 Oxygen Delivery Method Room Air Room Air BMI result Body Mass Index 22.3 Labs 05/04/24 15:03 05/22/24 08:03 Imaging Radiology Impressions: ITS Impressions Head CT 05/16/24 14:30 IMPRESSION: There are no acute bleeds or territorial infarcts. No masses are demonstrated. Brain parenchymal attenuation is unremarkable. Medications Medications Current Medications Acetaminophen (Acetaminophen 325 Mg Tablet) 650 mg PO Q6H PRN PRN Reason: Headache/Pain Mild Scale (1-3) Last Admin: 06/29/24 09:36 Dose: 650 mg Al Hydroxide/Mg Hydroxide (Magnesium Hydrox/Alum Hydrox 30 Ml Oral.Susp) 30 ml PO Q6H PRN PRN Reason: Heartburn/Nausea Aripiprazole (Aripiprazole 20 Mg Tablet) 20 mg PO BEDTIME [facility] Last Admin: 06/30/24 20:26 Dose: 20 mg Benztropine Mesylate (Benztropine Mesylate 0.5 Mg Tablet) 0.5 mg PO BID [facility] Last Admin: 07/01/24 09:06 Dose: 0.5 mg Bisacodyl (Bisacodyl 10 Mg Supp.Rect) 10 mg [place] DAILY PRN PRN Reason: Constipation Divalproex Sodium (Divalproex Sodium Er 250 Mg Tab.Er.24h) 750 mg PO BEDTIME SALLY Last Admin: 06/30/24 20:26 Dose: 750 mg Docusate Sodium (Docusate Sodium 100 Mg Capsule) 200 mg PO BID [facility] Last Admin: 07/01/24 09:07 Dose: Not Given Famotidine (Famotidine 20 Mg Tablet) 20 mg PO DAILY [facility] Last Admin: 07/01/24 09:05 Dose: 20 mg Haloperidol (Haloperidol 5 Mg Tablet) 5 mg PO Q6H PRN PRN Reason: Psychosis Last Admin: 06/25/24 13:27 Dose: 5 mg Haloperidol (Haloperidol 1 Mg Tablet) 2 mg PO TID SALLY Last Admin: 07/01/24 14:37 Dose: 2 mg Haloperidol Lactate (Haloperidol Lactate 5 Mg/Ml Vial) 5 mg IM TID PRN PRN Reason: Refusal antipsychotics Last Admin: 06/27/24 22:06 Dose: 5 mg Lisinopril (Lisinopril 2.5 Mg Tablet) 2.5 mg PO DAILY [facility]; Protocol Last Admin: 07/01/24 09:05 Dose: 2.5 mg Lorazepam (Lorazepam 1 Mg Tablet) 2 mg PO TID PRN PRN Reason: agitation Last Admin: 06/24/24 15:19 Dose: 2 mg Magnesium Hydroxide (Milk Of Magnesia 30 Ml Oral.Susp) 30 ml PO DAILY PRN PRN Reason: Constipation Last Admin: 05/25/24 09:57 Dose: 30 ml Ondansetron HCl (Ondansetron Odt 4 Mg Tab.Rapdis) 8 mg TRANSLINGU Q8H PRN PRN Reason: Nausea and Vomiting Last Admin: 05/26/24 11:02 Dose: 8 mg Polyethylene Glycol (Polyethylene Glycol 3350 17 Gm Powd.Pack) 17 gm PO DAILY PRN PRN Reason: constipation Last Admin: 05/15/24 17:41 Dose: 17 gm Quetiapine Fumarate (Quetiapine Fumarate 200 Mg Tablet) 200 mg PO BEDTIME [facility] Last Admin: 06/30/24 20:27 Dose: 100 mg Sodium Biphosphate/Sodium Phosphate (Sodium Phosphate,[place]-Dibasic 133 Ml Enema) 133 ml NE ONCE PRN PRN Reason: severe constipation Last Admin: 05/13/24 18:19 Dose: 133 ml Trazodone HCl (Trazodone Hcl 50 Mg Tablet) 50 mg PO BEDTIME MRX1 PRN PRN Reason: Insomnia Last Admin: 06/30/24 20:27 Dose: 50 mg Allergies Allergies Allergy/AdvReac Type Severity Reaction Status Date / Time No Known Allergies Allergy Verified 05/04/24 15:04 Assessment & Plan Assessment & Plan (1) Bipolar 1 disorder: Status: Acute Code(s): F31.9 - Bipolar disorder, unspecified Plan 07/01/24: Continue tx. Reason for continued inpatient stay Substantial Risk for: rapid decompensation Time Spent With Patient Time: Total time managing care of this patient today ____ minutes.
[2024-07-01 20:00] VITALS: BP 154/70; PULSE 73; RESP 16; TEMP 36.1; O2SAT 99
[2024-07-01] MEDS: ARIPiprazole 20 MG TABLET PO (20:05)
[2024-07-01] MEDS: Divalproex Sodium ER 250 MG TAB.ER.24H 750 MG PO (20:05)
[2024-07-01] MEDS: Docusate Sodium 100 MG CAPSULE 200 MG PO (20:05)
[2024-07-01] MEDS: QUEtiapine Fumarate 200 MG TABLET PO (20:05)
[2024-07-02 07:50] VITALS: BP 121/63; PULSE 75; RESP 16; O2SAT 96
[2024-07-02] MEDS: HaloperidoL 1 MG TABLET 2 MG PO ×3 (07:51→21:24)
[2024-07-02] MEDS: lisinopriL 2.5 MG TABLET PO (07:52)
[2024-07-02] MEDS: Famotidine 20 MG TABLET PO (07:52)
[2024-07-02] MEDS: Docusate Sodium 100 MG CAPSULE 200 MG PO ×2 (07:52→21:23)
--- NOTE | 2024-07-02 08:39 | P.PNPSI_ITS ---
Subjective Subjective Date of Service: 07/02/24 Reason For Visit: Psychosis Interim History: Pt seen, discussed with her team. Ofelia reports she is feeling well today. She is ambulatory on the unit and attentive to milieu activity. She talked of needing to have a shot and prefering to take a tablet or capsule instead. She shared her experience and reasoning. Encouraged her to take her medicine as directed and she agrees. Medication Compliance: Intermittent Side effects from medications: No Attending Groups: Intermittent Review of Systems Acute medical concerns: No Medical Review of Systems: unchanged Review of Systems Review of Systems Yes all other systems are reviewed and are negative (denies, reports feeling well ) Mental Status Exam Mental Status Exam Patient Appearance: Appropriate Patient Orientation: Person Level of Consciousness: Alert Patient Behavior: Cooperative, Distractible, Confused and Good Eye Contact Mood Description: Depressed Affect Description: Flat Patient Cognition Impaired: Yes Ability to Follow Directions: Fair Speech Pattern: Spontaneous Speech Memory Description: Remote Impaired Thought Process: Distracted Judgement: Poor Diagnostics Vital Signs (24Hr): Vital Signs - 24 hr 07/01/24 09:03 07/01/24 20:00 07/02/24 07:50 Temperature 98.1 F 97 F Pulse Rate 73 73 75 Respiratory Rate 16 16 16 Blood Pressure 109/56 L 154/70 H 121/63 Pulse Oximetry 97 99 96 Oxygen Delivery Method Room Air Room Air Room Air BMI result Body Mass Index 22.3 Labs 05/04/24 15:03 05/22/24 08:03 Imaging Radiology Impressions: ITS Impressions Head CT 05/16/24 14:30 IMPRESSION: There are no acute bleeds or territorial infarcts. No masses are demonstrated. Brain parenchymal attenuation is unremarkable. Medications Medications Current Medications Acetaminophen (Acetaminophen 325 Mg Tablet) 650 mg PO Q6H PRN PRN Reason: Headache/Pain Mild Scale (1-3) Last Admin: 06/29/24 09:36 Dose: 650 mg Al Hydroxide/Mg Hydroxide (Magnesium Hydrox/Alum Hydrox 30 Ml Oral.Susp) 30 ml PO Q6H PRN PRN Reason: Heartburn/Nausea Aripiprazole (Aripiprazole 20 Mg Tablet) 20 mg PO BEDTIME [facility] Last Admin: 07/01/24 20:05 Dose: 20 mg Benztropine Mesylate (Benztropine Mesylate 0.5 Mg Tablet) 0.5 mg PO BID SALLY Last Admin: 07/01/24 20:05 Dose: 0.5 mg Bisacodyl (Bisacodyl 10 Mg Supp.Rect) 10 mg [place] DAILY PRN PRN Reason: Constipation Divalproex Sodium (Divalproex Sodium Er 250 Mg Tab.Er.24h) 750 mg PO BEDTIME [facility] Last Admin: 07/01/24 20:05 Dose: 750 mg Docusate Sodium (Docusate Sodium 100 Mg Capsule) 200 mg PO BID [facility] Last Admin: 07/02/24 07:52 Dose: 200 mg Famotidine (Famotidine 20 Mg Tablet) 20 mg PO DAILY [facility] Last Admin: 07/02/24 07:52 Dose: 20 mg Haloperidol (Haloperidol 5 Mg Tablet) 5 mg PO Q6H PRN PRN Reason: Psychosis Last Admin: 06/25/24 13:27 Dose: 5 mg Haloperidol (Haloperidol 1 Mg Tablet) 2 mg PO TID [facility] Last Admin: 07/02/24 07:51 Dose: 2 mg Haloperidol Lactate (Haloperidol Lactate 5 Mg/Ml Vial) 5 mg IM TID PRN PRN Reason: Refusal antipsychotics Last Admin: 06/27/24 22:06 Dose: 5 mg Lisinopril (Lisinopril 2.5 Mg Tablet) 2.5 mg PO DAILY [facility]; Protocol Last Admin: 07/02/24 07:52 Dose: 2.5 mg Lorazepam (Lorazepam 1 Mg Tablet) 2 mg PO TID PRN PRN Reason: agitation Last Admin: 06/24/24 15:19 Dose: 2 mg Magnesium Hydroxide (Milk Of Magnesia 30 Ml Oral.Susp) 30 ml PO DAILY PRN PRN Reason: Constipation Last Admin: 05/25/24 09:57 Dose: 30 ml Ondansetron HCl (Ondansetron Odt 4 Mg Tab.Rapdis) 8 mg TRANSLINGU Q8H PRN PRN Reason: Nausea and Vomiting Last Admin: 05/26/24 11:02 Dose: 8 mg Polyethylene Glycol (Polyethylene Glycol 3350 17 Gm Powd.Pack) 17 gm PO DAILY PRN PRN Reason: constipation Last Admin: 05/15/24 17:41 Dose: 17 gm Quetiapine Fumarate (Quetiapine Fumarate 200 Mg Tablet) 200 mg PO BEDTIME [facility] Last Admin: 07/01/24 20:05 Dose: 200 mg Sodium Biphosphate/Sodium Phosphate (Sodium Phosphate,[place]-Dibasic 133 Ml Enema) 133 ml [place] ONCE PRN PRN Reason: severe constipation Last Admin: 05/13/24 18:19 Dose: 133 ml Trazodone HCl (Trazodone Hcl 50 Mg Tablet) 50 mg PO BEDTIME MRX1 PRN PRN Reason: Insomnia Last Admin: 06/30/24 20:27 Dose: 50 mg Allergies Allergies Allergy/AdvReac Type Severity Reaction Status Date / Time No Known Allergies Allergy Verified 05/04/24 15:04 Assessment & Plan Assessment & Plan (1) Bipolar 1 disorder: Status: Acute Code(s): F31.9 - Bipolar disorder, unspecified Plan 07/01/24: Continue tx. 07/02/24: Continue tx. Reason for continued inpatient stay Substantial Risk for: rapid decompensation Time Spent With Patient Time: Total time managing care of this patient today ____ minutes.
[2024-07-02] MEDS: Benztropine Mesylate 0.5 MG TABLET PO ×2 (10:06→21:24)
[2024-07-02 20:00] VITALS: BP 110/58; PULSE 68; RESP 16; TEMP 36.6; O2SAT 100
[2024-07-02] MEDS: QUEtiapine Fumarate 200 MG TABLET PO (21:24)
[2024-07-02] MEDS: ARIPiprazole 20 MG TABLET PO (21:24)
[2024-07-02] MEDS: Divalproex Sodium ER 250 MG TAB.ER.24H 750 MG PO (21:25)
[2024-07-03 09:53] VITALS: BP 110/61; PULSE 82; RESP 15; TEMP 36.7; O2SAT 96
[2024-07-03] MEDS: Benztropine Mesylate 0.5 MG TABLET PO ×2 (09:55→21:18)
[2024-07-03] MEDS: Famotidine 20 MG TABLET PO (09:55)
[2024-07-03] MEDS: lisinopriL 2.5 MG TABLET PO (09:55)
[2024-07-03] MEDS: Docusate Sodium 100 MG CAPSULE 200 MG PO ×2 (09:55→21:17)
[2024-07-03] MEDS: HaloperidoL 1 MG TABLET 2 MG PO ×3 (09:55→21:16)
--- NOTE | 2024-07-03 12:14 | HO.PSYCHPN ---
Subjective Subjective Date of Service: 07/03/24 Reason For Visit: Psychosis Subjective Notes: Conditional Voluntary Healthcare Proxy: Yes Interim History: The nursing staff reported the patient has been calm and compliant with medication less paranoid before. She slept 6 hours last night. Currently she is now on 15 minutes checks. The clinical social work aide reported that she spoke with her daughter on Tuesday. On interview the patient remains internally preoccupied she is scheduled for ECT tomorrow. Overall, she looks better, less agitated Mental Status Exam Mental Status Exam Patient Appearance: Appropriate Patient Orientation: Person and Situation Level of Consciousness: Awake and Appropriate Patient Behavior: Guarded and Passive Mood Description: Withdrawn Affect Description: Labile Patient Cognition Impaired: Yes Ability to Follow Directions: Fair Speech Pattern: Clear Hallucinations: None Delusions: Ideas of Reference Thought Process: Distracted and Slowed Thinking Thought Content: positive for Allison and positive for Poverty of Content Judgement: Poor Diagnostics Vital Signs (24Hr): Vital Signs - 24 hr 07/02/24 20:00 07/03/24 09:53 Temperature 97.8 F 98.1 F Pulse Rate 68 82 Respiratory Rate 16 15 Blood Pressure 110/58 L 110/61 Pulse Oximetry 100 96 Oxygen Delivery Method Room Air Room Air BMI result Body Mass Index 22.3 Labs 05/04/24 15:03 05/22/24 08:03 Imaging Radiology Impressions: ITS Impressions Head CT 05/16/24 14:30 IMPRESSION: There are no acute bleeds or territorial infarcts. No masses are demonstrated. Brain parenchymal attenuation is unremarkable. Medications Medications Current Medications Acetaminophen (Acetaminophen 325 Mg Tablet) 650 mg PO Q6H PRN PRN Reason: Headache/Pain Mild Scale (1-3) Last Admin: 06/29/24 09:36 Dose: 650 mg Al Hydroxide/Mg Hydroxide (Magnesium Hydrox/Alum Hydrox 30 Ml Oral.Susp) 30 ml PO Q6H PRN PRN Reason: Heartburn/Nausea Aripiprazole (Aripiprazole 20 Mg Tablet) 20 mg PO BEDTIME [facility] Last Admin: 07/02/24 21:24 Dose: 20 mg Benztropine Mesylate (Benztropine Mesylate 0.5 Mg Tablet) 0.5 mg PO BID [facility] Last Admin: 07/03/24 09:55 Dose: 0.5 mg Bisacodyl (Bisacodyl 10 Mg Supp.Rect) 10 mg [place] DAILY PRN PRN Reason: Constipation Divalproex Sodium (Divalproex Sodium Er 250 Mg Tab.Er.24h) 750 mg PO BEDTIME [facility] Last Admin: 07/02/24 21:25 Dose: 750 mg Docusate Sodium (Docusate Sodium 100 Mg Capsule) 200 mg PO BID [facility] Last Admin: 07/03/24 09:55 Dose: 200 mg Famotidine (Famotidine 20 Mg Tablet) 20 mg PO DAILY [facility] Last Admin: 07/03/24 09:55 Dose: 20 mg Haloperidol (Haloperidol 5 Mg Tablet) 5 mg PO Q6H PRN PRN Reason: Psychosis Last Admin: 06/25/24 13:27 Dose: 5 mg Haloperidol (Haloperidol 1 Mg Tablet) 2 mg PO TID [facility] Last Admin: 07/03/24 09:55 Dose: 2 mg Haloperidol Lactate (Haloperidol Lactate 5 Mg/Ml Vial) 5 mg IM TID PRN PRN Reason: Refusal antipsychotics Last Admin: 06/27/24 22:06 Dose: 5 mg Lisinopril (Lisinopril 2.5 Mg Tablet) 2.5 mg PO DAILY [facility]; Protocol Last Admin: 07/03/24 09:55 Dose: 2.5 mg Lorazepam (Lorazepam 1 Mg Tablet) 2 mg PO TID PRN PRN Reason: agitation Last Admin: 06/24/24 15:19 Dose: 2 mg Magnesium Hydroxide (Milk Of Magnesia 30 Ml Oral.Susp) 30 ml PO DAILY PRN PRN Reason: Constipation Last Admin: 05/25/24 09:57 Dose: 30 ml Ondansetron HCl (Ondansetron Odt 4 Mg Tab.Rapdis) 8 mg TRANSLINGU Q8H PRN PRN Reason: Nausea and Vomiting Last Admin: 05/26/24 11:02 Dose: 8 mg Polyethylene Glycol (Polyethylene Glycol 3350 17 Gm Powd.Pack) 17 gm PO DAILY PRN PRN Reason: constipation Last Admin: 05/15/24 17:41 Dose: 17 gm Quetiapine Fumarate (Quetiapine Fumarate 200 Mg Tablet) 200 mg PO BEDTIME [facility] Last Admin: 07/02/24 21:24 Dose: 200 mg Sodium Biphosphate/Sodium Phosphate (Sodium Phosphate,[place]-Dibasic 133 Ml Enema) 133 ml NE ONCE PRN PRN Reason: severe constipation Last Admin: 05/13/24 18:19 Dose: 133 ml Trazodone HCl (Trazodone Hcl 50 Mg Tablet) 50 mg PO BEDTIME MRX1 PRN PRN Reason: Insomnia Last Admin: 06/30/24 20:27 Dose: 50 mg Allergies Allergies Allergy/AdvReac Type Severity Reaction Status Date / Time No Known Allergies Allergy Verified 05/04/24 15:04 Assessment & Plan Assessment & Plan (1) Bipolar 1 disorder: Status: Acute Code(s): F31.9 - Bipolar disorder, unspecified Plan The patient is a 74-year-old female, from [facility], , mother of adult children with a past history of bipolar disorder who responded fairly well with ECT in the past. Historically, she had catatonia that responded very well with ECT. Currently she was admitted for increased psychosis, impulsive behavior and manic symptoms. We tried to give her Abilify Maintena 400 mg with limited results so we started ECT. Plan 1. Continue with same medications. 2. Continue with ECT as scheduled for tomorrow. At this moment we have seen some improvement of the patient to the point that she is on 15 minute checks Reason for continued inpatient stay Substantial Risk for: inability to function, rapid decompensation and med/psych decompensation Time Spent With Patient Time: Total time managing care of this patient today __20__ minutes.
[2024-07-03 20:00] VITALS: BP 107/56; PULSE 66; RESP 16; TEMP 36.5; O2SAT 100
[2024-07-03] MEDS: Divalproex Sodium ER 250 MG TAB.ER.24H 750 MG PO (21:16)
[2024-07-03] MEDS: QUEtiapine Fumarate 200 MG TABLET PO (21:17)
[2024-07-03] MEDS: ARIPiprazole 20 MG TABLET PO (21:18)
[2024-07-04] VITALS (9 sets, daily range): BP systolic 100–169; BP diastolic 50–89; PULSE 61–90; RESP 14–18; TEMP 35.9–36.5; O2SAT 95–100
--- NOTE | 2024-07-04 06:51 | P.CONAN_ITS ---
[facility] Active Problems Active Problems: All Active Problems Dementia (Acute) Bipolar 1 disorder (Acute) Family History Family history of problems with anesthesia: No Surgical History History of Problems with Anesthesia: No Social History Social History Household Members: Children Housing: House Patient Tobacco Use Status: Never used Tobacco Smoked in Last 30 Days: No Use of substances other than those prescribed or required for medical reasons: No Currently Displaying Signs/Symptoms of Drug Intoxication Withdrawal: No Have you been hit, kicked, punched, or otherwise hurt by someone within the past year? If so, by whom?: No Do you feel safe in your current relationship?: No Current Relationship Is there a partner from a previous relationship who is making you feel unsafe now?: No Are you made to feel afraid or neglected: No Advance Directives: No Advance Directives Information Provided: No Do you have thoughts of harming others: None Do you have a plan to hurt others: No Plan Recently lost weight without trying: No Nutrition Risks: No Nutritional Risk Patient : No : No Sexual orientation: Straight/Heterosexual Meds Allergies Allergy/AdvReac Type Severity Reaction Status Date / Time No Known Allergies Allergy Verified 05/04/24 15:04 Active Medications: Current Medications Acetaminophen (Acetaminophen 325 Mg Tablet) 650 mg PO Q6H PRN PRN Reason: Headache/Pain Mild Scale (1-3) Last Admin: 06/29/24 09:36 Dose: 650 mg Al Hydroxide/Mg Hydroxide (Magnesium Hydrox/Alum Hydrox 30 Ml Oral.Susp) 30 ml PO Q6H PRN PRN Reason: Heartburn/Nausea Aripiprazole (Aripiprazole 20 Mg Tablet) 20 mg PO BEDTIME [facility] Last Admin: 07/03/24 21:18 Dose: 20 mg Benztropine Mesylate (Benztropine Mesylate 0.5 Mg Tablet) 0.5 mg PO BID [facility] Last Admin: 07/03/24 21:18 Dose: 0.5 mg Bisacodyl (Bisacodyl 10 Mg Supp.Rect) 10 mg ID DAILY PRN PRN Reason: Constipation Divalproex Sodium (Divalproex Sodium Er 250 Mg Tab.Er.24h) 750 mg PO BEDTIME [facility] Last Admin: 07/03/24 21:16 Dose: 750 mg Docusate Sodium (Docusate Sodium 100 Mg Capsule) 200 mg PO BID [facility] Last Admin: 07/03/24 21:17 Dose: 200 mg Famotidine (Famotidine 20 Mg Tablet) 20 mg PO DAILY [facility] Last Admin: 07/03/24 09:55 Dose: 20 mg Haloperidol (Haloperidol 5 Mg Tablet) 5 mg PO Q6H PRN PRN Reason: Psychosis Last Admin: 06/25/24 13:27 Dose: 5 mg Haloperidol (Haloperidol 1 Mg Tablet) 2 mg PO TID [facility] Last Admin: 07/03/24 21:16 Dose: 2 mg Haloperidol Lactate (Haloperidol Lactate 5 Mg/Ml Vial) 5 mg IM TID PRN PRN Reason: Refusal antipsychotics Last Admin: 06/27/24 22:06 Dose: 5 mg Lactated Ringer's (Lr) 1,000 mls @ 50 mls/hr IVCONT .Q20H [facility] Lisinopril (Lisinopril 2.5 Mg Tablet) 2.5 mg PO DAILY [facility]; Protocol Last Admin: 07/03/24 09:55 Dose: 2.5 mg Lorazepam (Lorazepam 1 Mg Tablet) 2 mg PO TID PRN PRN Reason: agitation Last Admin: 06/24/24 15:19 Dose: 2 mg Magnesium Hydroxide (Milk Of Magnesia 30 Ml Oral.Susp) 30 ml PO DAILY PRN PRN Reason: Constipation Last Admin: 05/25/24 09:57 Dose: 30 ml Ondansetron HCl (Ondansetron Odt 4 Mg Tab.Rapdis) 8 mg TRANSLINGU Q8H PRN PRN Reason: Nausea and Vomiting Last Admin: 05/26/24 11:02 Dose: 8 mg Polyethylene Glycol (Polyethylene Glycol 3350 17 Gm Powd.Pack) 17 gm PO DAILY PRN PRN Reason: constipation Last Admin: 05/15/24 17:41 Dose: 17 gm Quetiapine Fumarate (Quetiapine Fumarate 200 Mg Tablet) 200 mg PO BEDTIME [facility] Last Admin: 07/03/24 21:17 Dose: 200 mg Sodium Biphosphate/Sodium Phosphate (Sodium Phosphate,[place]-Dibasic 133 Ml Enema) 133 ml ID ONCE PRN PRN Reason: severe constipation Last Admin: 05/13/24 18:19 Dose: 133 ml Trazodone HCl (Trazodone Hcl 50 Mg Tablet) 50 mg PO BEDTIME MRX1 PRN PRN Reason: Insomnia Last Admin: 06/30/24 20:27 Dose: 50 mg Home Medications ?Medication ?Instructions ?Recorded ?Confirmed ?Last Taken ?Type benztropine 0.5 mg tablet 0.5 mg PO BEDTIME 05/04/24 05/04/24 Unknown History divalproex 250 mg tablet,extended 250 mg PO BEDTIME 05/04/24 05/04/24 Unknown History release 24 hr lamotrigine 100 mg tablet 100 mg PO BEDTIME 05/04/24 05/04/24 Unknown History lisinopril 5 mg tablet 2.5 mg PO DAILY 05/04/24 05/04/24 Unknown History quetiapine 100 mg tablet 100 mg PO DAILY 05/04/24 05/04/24 Unknown History quetiapine 300 mg tablet 300 mg PO BEDTIME 05/04/24 05/04/24 Unknown History quetiapine 50 mg tablet 50 mg PO BID PRN Agitation 05/04/24 05/04/24 Unknown History Exam Height,Weight and Vital Signs: Height 5 ft Weight 51.766 kg Last Vital Signs Temp 96.6 F L 07/04/24 06:37 Pulse 61 07/04/24 06:37 Resp 16 07/04/24 06:37 BP 111/61 07/04/24 06:37 Pulse Ox 98 07/04/24 06:37 O2 Del Method Room Air 07/04/24 06:37 O2 Flow Rate 3 06/29/24 07:51 Pertinent Lab Results Pertinent Lab Results: Laboratory Tests 05/04/24 05/05/24 05/05/24 15:03 12:44 13:08 WBC 4.9 RBC 4.49 Hgb 13.4 Hct 40.3 MCV 89.8 MCH 29.8 MCHC 33.3 RDW 13.4 Plt Count 215 MPV 9.1 L Immature Gran % (Auto) 0.2 Neut % (Auto) 51.7 Lymph % (Auto) 32.9 [place] % (Auto) 11.1 H Eos % (Auto) 3.5 Baso % (Auto) 0.6 Lymph # (Auto) 1.6 [place] # (Auto) 0.5 Eos # (Auto) 0.2 Baso # (Auto) 0.0 Abs Immat Gran (auto) 0.01 Absolute Neuts (auto) 2.5 Absolute Nucleated RBC 0.000 Nucleated RBC % (auto) 0.0 Hold Purple Top Sodium 141 Potassium 4.0 Chloride 102 Carbon Dioxide 31 H Anion Gap 12 BUN 19 H Creatinine 1.08 Estim Creat Clear Calc 37.5 Estimated GFR 50 Random Glucose 104 Fasting Glucose Calcium 9.4 Magnesium 2.3 Total Bilirubin 0.6 Direct Bilirubin AST 18 ALT 13 Alkaline Phosphatase 122 H Ammonia Total Protein 7.5 Albumin 4.2 Triglycerides Cholesterol LDL Cholesterol, Calc HDL Cholesterol TSH 1.25 Hold Yellow Top See Note Urine Color Urine Appearance Urine pH Ur Specific [place] Urine Protein Urine Glucose (UA) Urine Ketones Urine Blood Urine Nitrite Ur Leukocyte Esterase Urine RBC Urine WBC Ur Squamous Epith Cells Urine Bacteria Hyaline Casts Salicylates < 5.0 L Urine Opiates Screen Ur Buprenorphine Scrn Ur Oxycodone Screen Urine Methadone Screen Urine Fentanyl Screen Acetaminophen < 3 Ur Barbiturates Screen Valproic Acid < 12.5 L Ur Phencyclidine Scrn Ur Amphetamines Screen U Benzodiazepines Scrn Urine Cocaine Screen U Marijuana (THC) Screen Ethyl Alcohol < 10 05/05/24 05/09/24 05/16/24 13:16 08:10 20:12 WBC RBC Hgb Hct MCV MCH MCHC RDW Plt Count MPV Immature Gran % (Auto) Neut % (Auto) Lymph % (Auto) [place] % (Auto) Eos % (Auto) Baso % (Auto) Lymph # (Auto) [place] # (Auto) Eos # (Auto) Baso # (Auto) Abs Immat Gran (auto) Absolute Neuts (auto) Absolute Nucleated RBC Nucleated RBC % (auto) Hold Purple Top SEE NOTE Sodium 138 143 Potassium 3.8 4.1 Chloride 101 104 Carbon Dioxide 30 H 27 Anion Gap 11 L 16 BUN 27 H 26 H Creatinine 1.24 0.90 Estim Creat Clear Calc 32.6 44.6 Estimated GFR 43 > 60 Random Glucose 130 H Fasting Glucose 112 H Calcium 9.3 9.2 Magnesium Total Bilirubin 0.9 0.6 Direct Bilirubin 0.2 AST 18 15 ALT 12 10 Alkaline Phosphatase 100 96 Ammonia 25 Total Protein 7.3 6.7 Albumin 4.1 3.8 Triglycerides 61 Cholesterol 157 LDL Cholesterol, Calc 100 H HDL Cholesterol 45 TSH Hold Yellow Top Urine Color Yellow Urine Appearance Clear Urine pH 7.0 Ur Specific [place] 1.020 Urine Protein Negative Urine Glucose (UA) Negative Urine Ketones Negative Urine Blood Negative Urine Nitrite Negative Ur Leukocyte Esterase Moderate (2+) H Urine RBC 0-2 Urine WBC 0-5 Ur Squamous Epith Cells 0-2 Urine Bacteria None Seen Hyaline Casts 0-2 Salicylates Urine Opiates Screen Not Detected Ur Buprenorphine Scrn Not Detected Ur Oxycodone Screen Not Detected Urine Methadone Screen Not Detected Urine Fentanyl Screen Not Detected Acetaminophen Ur Barbiturates Screen Not Detected Valproic Acid 50.2 Ur Phencyclidine Scrn Not Detected Ur Amphetamines Screen Not Detected U Benzodiazepines Scrn Not Detected Urine Cocaine Screen Not Detected U Marijuana (THC) Screen Not Detected Ethyl Alcohol 05/21/24 05/22/24 05/24/24 08:09 08:03 18:05 WBC RBC Hgb Hct MCV MCH MCHC RDW Plt Count MPV Immature Gran % (Auto) Neut % (Auto) Lymph % (Auto) [place] % (Auto) Eos % (Auto) Baso % (Auto) Lymph # (Auto) [place] # (Auto) Eos # (Auto) Baso # (Auto) Abs Immat Gran (auto) Absolute Neuts (auto) Absolute Nucleated RBC Nucleated RBC % (auto) Hold Purple Top Sodium 143 Potassium 3.9 Chloride 105 Carbon Dioxide 29 Anion Gap 13 BUN 31 H Creatinine 1.11 Estim Creat Clear Calc 36.0 Estimated GFR 48 Random Glucose Fasting Glucose 81 Calcium 9.5 Magnesium Total Bilirubin 0.5 Direct Bilirubin AST 17 ALT 9 Alkaline Phosphatase 89 Ammonia 20 Total Protein 7.1 Albumin 4.1 Triglycerides Cholesterol LDL Cholesterol, Calc HDL Cholesterol TSH Hold Yellow Top Urine Color Urine Appearance Urine pH Ur Specific [place] Urine Protein Urine Glucose (UA) Urine Ketones Urine Blood Urine Nitrite Ur Leukocyte Esterase Urine RBC Urine WBC Ur Squamous Epith Cells Urine Bacteria Hyaline Casts Salicylates Urine Opiates Screen Ur Buprenorphine Scrn Ur Oxycodone Screen Urine Methadone Screen Urine Fentanyl Screen Acetaminophen Ur Barbiturates Screen Valproic Acid 142.5 H* 142.8 H* 113.4 H* Ur Phencyclidine Scrn Ur Amphetamines Screen U Benzodiazepines Scrn Urine Cocaine Screen U Marijuana (THC) Screen Ethyl Alcohol 05/27/24 05/30/24 10:04 09:29 WBC RBC Hgb Hct MCV MCH MCHC RDW Plt Count MPV Immature Gran % (Auto) Neut % (Auto) Lymph % (Auto) [place] % (Auto) Eos % (Auto) Baso % (Auto) Lymph # (Auto) [place] # (Auto) Eos # (Auto) Baso # (Auto) Abs Immat Gran (auto) Absolute Neuts (auto) Absolute Nucleated RBC Nucleated RBC % (auto) Hold Purple Top Sodium Potassium Chloride Carbon Dioxide Anion Gap BUN Creatinine Estim Creat Clear Calc Estimated GFR Random Glucose Fasting Glucose Calcium Magnesium Total Bilirubin Direct Bilirubin AST ALT Alkaline Phosphatase Ammonia Total Protein Albumin Triglycerides Cholesterol LDL Cholesterol, Calc HDL Cholesterol TSH Hold Yellow Top Urine Color Urine Appearance Urine pH Ur Specific [place] Urine Protein Urine Glucose (UA) Urine Ketones Urine Blood Urine Nitrite Ur Leukocyte Esterase Urine RBC Urine WBC Ur Squamous Epith Cells Urine Bacteria Hyaline Casts Salicylates Urine Opiates Screen Ur Buprenorphine Scrn Ur Oxycodone Screen Urine Methadone Screen Urine Fentanyl Screen Acetaminophen Ur Barbiturates Screen Valproic Acid 116.9 H* 114.7 H* Ur Phencyclidine Scrn Ur Amphetamines Screen U Benzodiazepines Scrn Urine Cocaine Screen U Marijuana (THC) Screen Ethyl Alcohol Airway Mallampati Class: II TM Dist: >3cm Neck ROM: Full Denture: Upper Heart: rrr Lungs: cta Assessment and Plan Assessment Anesthesia Assessment: Anesthesia Plan Discussed and Chart Reviewed Final Anesthetic Review Family History of Problems with Anesthesia: No History of Problems with Anesthesia: No NPO: Yes ASA Class: III Final Preanesthetic Review: No Changes in Pt Med Stat, Meds/Allgs Chart Reviewed and Consent Obtained/Reviewed Patient Risk: Intermediate Procedure Risk: Intermediate Anesthetic Plan Anesthetic Plan: GA Disposition: Standard PACU
--- NOTE | 2024-07-04 07:04 | MHC.SHP ---
Pre-Procedural Eval Section A - 24 Hr Update-Section A only Date of Service: 07/04/24 The patient is an INPATIENT: Yes Changes since office visit: No Cold of Flu in the past 2 weeks, No New Medical Problems, No Changes in Medication and No Patient answered all questions The patient has been examined within 24 hours of the surgical procedure. The History & Physical has been completed within 30 days and I have reviewed it.: Yes Section B - Complete if H&P > 30 days Chief Complaint: Psychosis Allergies: Allergies Allergy/AdvReac Type Severity Reaction Status Date / Time No Known Allergies Allergy Verified 05/04/24 15:04 Plan I have reviewed the history and physical and performed a pertinent physical examination on my patient. No changes have occurred unless specified. Time Spent With Patient Time: Total time managing care of this patient today ____ minutes.
[2024-07-04] MEDS: Lactated Ringers 1,000 ML 50 ML IVCONT (07:05)
--- NOTE | 2024-07-04 07:52 | HO.ECTPROC ---
ECT Procedure Note Diagnosis/Treatment Date of Service: 07/04/24 Diagnosis: Bipolar disorder and Catatonia Previous ECT Date: 06/29/24 Current Treatment Number: 3 Treatment: Series Interval Clinical Notes: The patient's agitation and catatonia has improved remarkably after 2 ECTs, she is more pleasant and cooperative, still confused at times. NO side effects with previous ECT. ECT done bitemporal at 0.5 100%, no complications, woke up well. Time: Total time managing care of this patient today _30___ minutes. ECT Settings Device: THYMATRON DGx Electrode Placement: Bitemporal Program/Pulse Width: 0.50 Energy Percent: 100 Seizure Duration By EEG (in seconds): 51 Medications Administration General Anesthetic: Etomidate (12) Muscle Relaxant: Succinylcholine (80) Ancillary Medications Anti-emetics: Zofran - Pre ECT Airway Management Airway Management: Bag Mask Ventilation Treatment Recommendations No Changes Recommended: No change Pt Tolerated Procedure w/o Issue: Yes
[2024-07-04] MEDS: Docusate Sodium 100 MG CAPSULE 200 MG PO ×2 (08:54→20:55)
[2024-07-04] MEDS: Famotidine 20 MG TABLET PO (08:54)
[2024-07-04] MEDS: lisinopriL 2.5 MG TABLET PO (08:54)
[2024-07-04] MEDS: Benztropine Mesylate 0.5 MG TABLET PO ×2 (08:54→20:55)
[2024-07-04] MEDS: HaloperidoL 1 MG TABLET 2 MG PO ×2 (08:54→20:55)
[2024-07-04] MEDS: Acetaminophen 325 MG TABLET 650 MG PO (10:04)
--- NOTE | 2024-07-04 13:47 | P.PNPSI_ITS ---
Subjective Subjective Date of Service: 07/04/24 Reason For Visit: Psychosis Subjective Notes: Conditional Voluntary Healthcare Proxy: Yes (CV by affirmed healthcare proxy.) Interim History: The patient had been pleasant in groups, she was able to participate in some groups with no behavioral disturbance. The staff has noticed that his last Invega Maintena dose was exactly 1 month ago so we are ordering a 2nd dose today and keep on Abilify 20 at bedtime. She looks slightly sedated so we are lowering the Haldol to 2 mg p.o. b.i.d. with a plan to type per her off in the next week. Today we had ECT with no problems, she was doing much better. Mental Status Exam Mental Status Exam Patient Appearance: Appropriate Patient Orientation: Person and Situation Level of Consciousness: Awake and Appropriate Patient Behavior: Guarded and Passive Mood Description: Withdrawn Affect Description: Constricted Patient Cognition Impaired: Yes Ability to Follow Directions: Good Speech Pattern: Clear Hallucinations: None Delusions: Ideas of Reference Thought Process: Distracted and Slowed Thinking Thought Content: positive for [place] and positive for Poverty of Content Judgement: Poor Diagnostics Vital Signs (24Hr): Vital Signs - 24 hr 07/03/24 20:00 07/04/24 06:14 07/04/24 06:37 Temperature 97.7 F 97.1 F 96.6 F L Pulse Rate 66 79 61 Respiratory Rate 16 18 16 Blood Pressure 107/56 L 100/57 L 111/61 Pulse Oximetry 100 99 98 Oxygen Delivery Method Room Air Room Air Oxygen Flow Rate 07/04/24 07:59 07/04/24 08:04 07/04/24 08:09 Temperature 97.3 F Pulse Rate 72 84 81 Respiratory Rate 17 14 14 Blood Pressure 169/89 H 132/65 118/64 Pulse Oximetry 99 95 98 Oxygen Delivery Method Nasal Cannula with ETCO2 Nasal Cannula with ETCO2 Room Air Oxygen Flow Rate 2 07/04/24 08:14 07/04/24 08:29 07/04/24 08:52 Temperature 97.3 F 97.2 F Pulse Rate 78 75 90 Respiratory Rate 14 14 16 Blood Pressure 118/58 L 105/50 L 141/63 H Pulse Oximetry 98 98 95 Oxygen Delivery Method Room Air Room Air Room Air Oxygen Flow Rate BMI result Body Mass Index 22.3 Labs 05/04/24 15:03 05/22/24 08:03 Imaging Radiology Impressions: ITS Impressions Head CT 05/16/24 14:30 IMPRESSION: There are no acute bleeds or territorial infarcts. No masses are demonstrated. Brain parenchymal attenuation is unremarkable. Medications Medications Current Medications Acetaminophen (Acetaminophen 325 Mg Tablet) 650 mg PO Q6H PRN PRN Reason: Headache/Pain Mild Scale (1-3) Last Admin: 07/04/24 10:04 Dose: 650 mg Al Hydroxide/Mg Hydroxide (Magnesium Hydrox/Alum Hydrox 30 Ml Oral.Susp) 30 ml PO Q6H PRN PRN Reason: Heartburn/Nausea Aripiprazole (Aripiprazole 20 Mg Tablet) 20 mg PO BEDTIME [facility] Last Admin: 07/03/24 21:18 Dose: 20 mg Aripiprazole (Aripiprazole Er 400 Mg Suser.Syr) 400 mg IM Q30D [facility] Benztropine Mesylate (Benztropine Mesylate 0.5 Mg Tablet) 0.5 mg PO BID [facility] Last Admin: 07/04/24 08:54 Dose: 0.5 mg Bisacodyl (Bisacodyl 10 Mg Supp.Rect) 10 mg MA DAILY PRN PRN Reason: Constipation Divalproex Sodium (Divalproex Sodium Er 250 Mg Tab.Er.24h) 750 mg PO BEDTIME [facility] Last Admin: 07/03/24 21:16 Dose: 750 mg Docusate Sodium (Docusate Sodium 100 Mg Capsule) 200 mg PO BID [facility] Last Admin: 07/04/24 08:54 Dose: 200 mg Famotidine (Famotidine 20 Mg Tablet) 20 mg PO DAILY [facility] Last Admin: 07/04/24 08:54 Dose: 20 mg Haloperidol (Haloperidol 5 Mg Tablet) 5 mg PO Q6H PRN PRN Reason: Psychosis Last Admin: 06/25/24 13:27 Dose: 5 mg Haloperidol (Haloperidol 1 Mg Tablet) 2 mg PO BID [facility] Last Admin: 07/04/24 09:02 Dose: Not Given Haloperidol Lactate (Haloperidol Lactate 5 Mg/Ml Vial) 5 mg IM TID PRN PRN Reason: Refusal antipsychotics Last Admin: 06/27/24 22:06 Dose: 5 mg Lisinopril (Lisinopril 2.5 Mg Tablet) 2.5 mg PO DAILY [facility]; Protocol Last Admin: 07/04/24 08:54 Dose: 2.5 mg Lorazepam (Lorazepam 1 Mg Tablet) 2 mg PO TID PRN PRN Reason: agitation Last Admin: 06/24/24 15:19 Dose: 2 mg Magnesium Hydroxide (Milk Of Magnesia 30 Ml Oral.Susp) 30 ml PO DAILY PRN PRN Reason: Constipation Last Admin: 05/25/24 09:57 Dose: 30 ml Ondansetron HCl (Ondansetron Odt 4 Mg Tab.Rapdis) 8 mg TRANSLINGU Q8H PRN PRN Reason: Nausea and Vomiting Last Admin: 05/26/24 11:02 Dose: 8 mg Polyethylene Glycol (Polyethylene Glycol 3350 17 Gm Powd.Pack) 17 gm PO DAILY PRN PRN Reason: constipation Last Admin: 05/15/24 17:41 Dose: 17 gm Quetiapine Fumarate (Quetiapine Fumarate 200 Mg Tablet) 200 mg PO BEDTIME [facility] Last Admin: 07/03/24 21:17 Dose: 200 mg Sodium Biphosphate/Sodium Phosphate (Sodium Phosphate,[place]-Dibasic 133 Ml Enema) 133 ml MA ONCE PRN PRN Reason: severe constipation Last Admin: 05/13/24 18:19 Dose: 133 ml Trazodone HCl (Trazodone Hcl 50 Mg Tablet) 50 mg PO BEDTIME MRX1 PRN PRN Reason: Insomnia Last Admin: 06/30/24 20:27 Dose: 50 mg Allergies Allergies Allergy/AdvReac Type Severity Reaction Status Date / Time No Known Allergies Allergy Verified 05/04/24 15:04 Assessment & Plan Assessment & Plan (1) Bipolar 1 disorder: Status: Acute Code(s): F31.9 - Bipolar disorder, unspecified Plan The patient is a 74-year-old female, from [facility], , mother of adult children with a past history of bipolar disorder who responded fairly well with ECT in the past. Historically, she had catatonia that responded very well with ECT. Currently she was admitted for increased psychosis, impulsive behavior and manic symptoms. We tried to give her Abilify Maintena 400 mg with limited results so we started ECT. Plan 1. Continue with same medications. 2. Continue with ECT as scheduled At this moment we have seen some improvement of the patient to the point that she is on 15 minute checks. 3. Start tapering off Haldol on July 04 we lowered to 2 mg p.o. b.i.d. with a plan to discontinue in the next week. 4. Abilify Maintena 400 mg IM on July 04. 5. Continue with Depakote 750 p.o. q.h.s. Reason for continued inpatient stay Substantial Risk for: inability to function, rapid decompensation and med/psych decompensation Time Spent With Patient Time: Total time managing care of this patient today __20__ minutes.
[2024-07-04] MEDS: ARIPiprazole ER 400 MG SUSER.SYR IM (15:17)
[2024-07-04] MEDS: Divalproex Sodium ER 250 MG TAB.ER.24H 750 MG PO (20:55)
[2024-07-04] MEDS: QUEtiapine Fumarate 200 MG TABLET PO (20:55)
[2024-07-04] MEDS: ARIPiprazole 20 MG TABLET PO (20:55)
[2024-07-05 08:57] VITALS: BP 110/57; PULSE 67; RESP 18; TEMP 36.4; O2SAT 100
[2024-07-05] MEDS: Docusate Sodium 100 MG CAPSULE 200 MG PO ×3 (09:12→20:04)
[2024-07-05] MEDS: Benztropine Mesylate 0.5 MG TABLET PO ×3 (09:12→20:04)
[2024-07-05] MEDS: Famotidine 20 MG TABLET PO (09:12)
[2024-07-05] MEDS: lisinopriL 2.5 MG TABLET PO (09:12)
[2024-07-05 10:32] VITALS: BMI 23.0
--- NOTE | 2024-07-05 12:33 | P.PNPSI_ITS ---
Subjective Subjective Date of Service: 07/05/24 Reason For Visit: Psychosis Subjective Notes: Conditional Voluntary Healthcare Proxy: Yes Interim History: The nursing staff reported the patient had been fully compliant with medications, yesterday she had her ECT at night. She slept well. We are cancelling tomorrow her ECT on Tuesday due to over book. On interview the patient is more pleasant cooperative with mild psychomotor retardation. We are continue with the tapering of Haldol. Mental Status Exam Mental Status Exam Patient Appearance: Appropriate Patient Orientation: Person and Situation Level of Consciousness: Awake and Appropriate Patient Behavior: Guarded and Passive Mood Description: Withdrawn Affect Description: Constricted Patient Cognition Impaired: Yes Ability to Follow Directions: Good Speech Pattern: Clear Hallucinations: None Delusions: Not Present Thought Process: Distracted and Slowed Thinking Thought Content: positive for [place] and positive for Poverty of Content Judgement: Fair Diagnostics Vital Signs (24Hr): Vital Signs - 24 hr 07/04/24 20:00 07/05/24 08:57 Temperature 97.7 F 97.6 F Pulse Rate 67 67 Respiratory Rate 16 18 Blood Pressure 112/58 L 110/57 L Pulse Oximetry 100 100 Oxygen Delivery Method Room Air Room Air BMI result Body Mass Index 23.0 Labs 05/04/24 15:03 05/22/24 08:03 Imaging Radiology Impressions: ITS Impressions Head CT 05/16/24 14:30 IMPRESSION: There are no acute bleeds or territorial infarcts. No masses are demonstrated. Brain parenchymal attenuation is unremarkable. Medications Medications Current Medications Acetaminophen (Acetaminophen 325 Mg Tablet) 650 mg PO Q6H PRN PRN Reason: Headache/Pain Mild Scale (1-3) Last Admin: 07/04/24 10:04 Dose: 650 mg Al Hydroxide/Mg Hydroxide (Magnesium Hydrox/Alum Hydrox 30 Ml Oral.Susp) 30 ml PO Q6H PRN PRN Reason: Heartburn/Nausea Aripiprazole (Aripiprazole 20 Mg Tablet) 20 mg PO BEDTIME [facility] Last Admin: 07/04/24 20:55 Dose: 20 mg Aripiprazole (Aripiprazole Er 400 Mg Suser.Syr) 400 mg IM Q30D [facility] Last Admin: 07/04/24 15:17 Dose: 400 mg Benztropine Mesylate (Benztropine Mesylate 0.5 Mg Tablet) 0.5 mg PO BID [facility] Last Admin: 07/05/24 09:12 Dose: 0.5 mg Bisacodyl (Bisacodyl 10 Mg Supp.Rect) 10 mg IN DAILY PRN PRN Reason: Constipation Divalproex Sodium (Divalproex Sodium Er 250 Mg Tab.Er.24h) 750 mg PO BEDTIME [facility] Last Admin: 07/04/24 20:55 Dose: 750 mg Docusate Sodium (Docusate Sodium 100 Mg Capsule) 200 mg PO BID [facility] Last Admin: 07/05/24 09:12 Dose: 200 mg Famotidine (Famotidine 20 Mg Tablet) 20 mg PO DAILY [facility] Last Admin: 07/05/24 09:12 Dose: 20 mg Haloperidol (Haloperidol 5 Mg Tablet) 5 mg PO Q6H PRN PRN Reason: Psychosis Last Admin: 06/25/24 13:27 Dose: 5 mg Haloperidol (Haloperidol 1 Mg Tablet) 2 mg PO BEDTIME [facility] Haloperidol Lactate (Haloperidol Lactate 5 Mg/Ml Vial) 5 mg IM TID PRN PRN Reason: Refusal antipsychotics Last Admin: 06/27/24 22:06 Dose: 5 mg Lisinopril (Lisinopril 2.5 Mg Tablet) 2.5 mg PO DAILY [facility]; Protocol Last Admin: 07/05/24 09:12 Dose: 2.5 mg Lorazepam (Lorazepam 1 Mg Tablet) 2 mg PO TID PRN PRN Reason: agitation Last Admin: 06/24/24 15:19 Dose: 2 mg Magnesium Hydroxide (Milk Of Magnesia 30 Ml Oral.Susp) 30 ml PO DAILY PRN PRN Reason: Constipation Last Admin: 05/25/24 09:57 Dose: 30 ml Ondansetron HCl (Ondansetron Odt 4 Mg Tab.Rapdis) 8 mg TRANSLINGU Q8H PRN PRN Reason: Nausea and Vomiting Last Admin: 05/26/24 11:02 Dose: 8 mg Polyethylene Glycol (Polyethylene Glycol 3350 17 Gm Powd.Pack) 17 gm PO DAILY PRN PRN Reason: constipation Last Admin: 05/15/24 17:41 Dose: 17 gm Quetiapine Fumarate (Quetiapine Fumarate 200 Mg Tablet) 200 mg PO BEDTIME [facility] Last Admin: 07/04/24 20:55 Dose: 200 mg Sodium Biphosphate/Sodium Phosphate (Sodium Phosphate,[place]-Dibasic 133 Ml Enema) 133 ml IN ONCE PRN PRN Reason: severe constipation Last Admin: 05/13/24 18:19 Dose: 133 ml Trazodone HCl (Trazodone Hcl 50 Mg Tablet) 50 mg PO BEDTIME MRX1 PRN PRN Reason: Insomnia Last Admin: 06/30/24 20:27 Dose: 50 mg Allergies Allergies Allergy/AdvReac Type Severity Reaction Status Date / Time No Known Allergies Allergy Verified 05/04/24 15:04 Assessment & Plan Assessment & Plan (1) Bipolar 1 disorder: Status: Acute Code(s): F31.9 - Bipolar disorder, unspecified Plan The patient is a 74-year-old female, from [facility], , mother of adult children with a past history of bipolar disorder who responded fairly well with ECT in the past. Historically, she had catatonia that responded very well with ECT. Currently she was admitted for increased psychosis, impulsive behavior and manic symptoms. We tried to give her Abilify Maintena 400 mg with limited results so we started ECT. Plan 1. Continue with same medications. 2. Continue with ECT as scheduled At this moment we have seen some improvement of the patient to the point that she is on 15 minute checks. 3. Start tapering off Haldol on July 04 we lowered to 2 mg p.o. b.i.d. with a plan to discontinue in the next week. On July 05 we are keeping Haldol 2 mg p.o. q.h.s. over the weekend. And discontinue early next week 4. Abilify Maintena 400 mg IM on July 04. 5. Continue with Depakote 750 p.o. q.h.s. Reason for continued inpatient stay Substantial Risk for: inability to function, rapid decompensation and med/psych decompensation Time Spent With Patient Time: Total time managing care of this patient today __20__ minutes.
[2024-07-05] MEDS: Divalproex Sodium ER 250 MG TAB.ER.24H 750 MG PO ×2 (20:01→20:05)
[2024-07-05] MEDS: HaloperidoL 1 MG TABLET 2 MG PO ×2 (20:01→20:05)
[2024-07-05] MEDS: QUEtiapine Fumarate 200 MG TABLET PO ×2 (20:02→20:05)
[2024-07-05] MEDS: ARIPiprazole 20 MG TABLET PO ×2 (20:02→20:05)
[2024-07-05 20:03] VITALS: BP 145/65; PULSE 70; RESP 17; TEMP 36.2; O2SAT 99
[2024-07-06 05:37] VITALS: BP 103/55; PULSE 60; RESP 16; TEMP 36
--- NOTE | 2024-07-06 06:26 | PC.NURSE ---
ECT cancelled per PACU patient made aware.
[2024-07-06 08:45] VITALS: BP 109/59; PULSE 70; RESP 15; TEMP 36.9; O2SAT 98
--- NOTE | 2024-07-06 09:48 | PC.NURSE ---
This radio script writer asked Dr. Leary if she should given morning dose of cogentin, as it appears that pt was double dosed last night, according to the documentation.
[2024-07-06 09:54] VITALS: BP 109/59
[2024-07-06] MEDS: Docusate Sodium 100 MG CAPSULE 200 MG PO ×2 (09:54→21:25)
[2024-07-06] MEDS: lisinopriL 2.5 MG TABLET PO (09:54)
[2024-07-06] MEDS: Benztropine Mesylate 0.5 MG TABLET PO ×2 (09:54→21:24)
[2024-07-06] MEDS: Famotidine 20 MG TABLET PO (09:54)
--- NOTE | 2024-07-06 12:49 | P.PNPSI_ITS ---
Subjective Subjective Date of Service: 07/06/24 Reason For Visit: Psychosis Subjective Notes: Conditional Voluntary Healthcare Proxy: Yes Interim History: The nursing staff reported the patient had been pleasant cooperative, a little hypoactive. Today we decided to cancel her ECT due to shortage of staff. Overall she looks much better pleasant and cooperative. The criminal justice social worker has referred to several [facility] so far no success. On interview the patient is pleasant and cooperative no new symptoms. She is willing to have ECT still hypoactive we will continue with the tapering of Haldol at this moment of 2 mg p.o. q.h.s. will keep it over the and discontinue Tuesday. Mental Status Exam Mental Status Exam Patient Appearance: Appropriate Patient Orientation: Person and Situation Level of Consciousness: Awake and Appropriate Patient Behavior: Guarded and Passive Mood Description: Withdrawn Affect Description: Constricted Patient Cognition Impaired: Yes Ability to Follow Directions: Good Speech Pattern: Clear Hallucinations: None Delusions: Not Present Thought Process: Distracted and Slowed Thinking Thought Content: positive for [place] and positive for Poverty of Content Judgement: Fair Diagnostics Vital Signs (24Hr): Vital Signs - 24 hr 07/05/24 20:03 07/06/24 05:37 07/06/24 08:45 Temperature 97.2 F 96.8 F 98.4 F Pulse Rate 70 60 70 Respiratory Rate 17 16 15 Blood Pressure 145/65 H 103/55 L 109/59 L Pulse Oximetry 99 98 Oxygen Delivery Method Room Air Room Air 07/06/24 09:54 Temperature Pulse Rate Respiratory Rate Blood Pressure 109/59 L Pulse Oximetry Oxygen Delivery Method BMI result Body Mass Index 23.0 Labs 05/04/24 15:03 05/22/24 08:03 Imaging Radiology Impressions: ITS Impressions Head CT 05/16/24 14:30 IMPRESSION: There are no acute bleeds or territorial infarcts. No masses are demonstrated. Brain parenchymal attenuation is unremarkable. Medications Medications Current Medications Acetaminophen (Acetaminophen 325 Mg Tablet) 650 mg PO Q6H PRN PRN Reason: Headache/Pain Mild Scale (1-3) Last Admin: 07/04/24 10:04 Dose: 650 mg Al Hydroxide/Mg Hydroxide (Magnesium Hydrox/Alum Hydrox 30 Ml Oral.Susp) 30 ml PO Q6H PRN PRN Reason: Heartburn/Nausea Aripiprazole (Aripiprazole 20 Mg Tablet) 20 mg PO BEDTIME [facility] Last Admin: 07/05/24 20:05 Dose: 20 mg Aripiprazole (Aripiprazole Er 400 Mg Suser.Syr) 400 mg IM Q30D [facility] Last Admin: 07/04/24 15:17 Dose: 400 mg Benztropine Mesylate (Benztropine Mesylate 0.5 Mg Tablet) 0.5 mg PO BID [facility] Last Admin: 07/06/24 09:54 Dose: 0.5 mg Bisacodyl (Bisacodyl 10 Mg Supp.Rect) 10 mg CA DAILY PRN PRN Reason: Constipation Divalproex Sodium (Divalproex Sodium Er 250 Mg Tab.Er.24h) 750 mg PO BEDTIME [facility] Last Admin: 07/05/24 20:05 Dose: 750 mg Docusate Sodium (Docusate Sodium 100 Mg Capsule) 200 mg PO BID [facility] Last Admin: 07/06/24 09:54 Dose: 200 mg Famotidine (Famotidine 20 Mg Tablet) 20 mg PO DAILY [facility] Last Admin: 07/06/24 09:54 Dose: 20 mg Haloperidol (Haloperidol 5 Mg Tablet) 5 mg PO Q6H PRN PRN Reason: Psychosis Last Admin: 06/25/24 13:27 Dose: 5 mg Haloperidol (Haloperidol 1 Mg Tablet) 2 mg PO BEDTIME [facility] Last Admin: 07/05/24 20:05 Dose: 2 mg Haloperidol Lactate (Haloperidol Lactate 5 Mg/Ml Vial) 5 mg IM TID PRN PRN Reason: Refusal antipsychotics Last Admin: 06/27/24 22:06 Dose: 5 mg Lisinopril (Lisinopril 2.5 Mg Tablet) 2.5 mg PO DAILY [facility]; Protocol Last Admin: 07/06/24 09:54 Dose: 2.5 mg Lorazepam (Lorazepam 1 Mg Tablet) 2 mg PO TID PRN PRN Reason: agitation Last Admin: 06/24/24 15:19 Dose: 2 mg Magnesium Hydroxide (Milk Of Magnesia 30 Ml Oral.Susp) 30 ml PO DAILY PRN PRN Reason: Constipation Last Admin: 05/25/24 09:57 Dose: 30 ml Ondansetron HCl (Ondansetron Odt 4 Mg Tab.Rapdis) 8 mg TRANSLINGU Q8H PRN PRN Reason: Nausea and Vomiting Last Admin: 05/26/24 11:02 Dose: 8 mg Polyethylene Glycol (Polyethylene Glycol 3350 17 Gm Powd.Pack) 17 gm PO DAILY PRN PRN Reason: constipation Last Admin: 05/15/24 17:41 Dose: 17 gm Quetiapine Fumarate (Quetiapine Fumarate 200 Mg Tablet) 200 mg PO BEDTIME [facility] Last Admin: 07/05/24 20:05 Dose: 200 mg Sodium Biphosphate/Sodium Phosphate (Sodium Phosphate,[place]-Dibasic 133 Ml Enema) 133 ml CA ONCE PRN PRN Reason: severe constipation Last Admin: 05/13/24 18:19 Dose: 133 ml Trazodone HCl (Trazodone Hcl 50 Mg Tablet) 50 mg PO BEDTIME MRX1 PRN PRN Reason: Insomnia Last Admin: 06/30/24 20:27 Dose: 50 mg Allergies Allergies Allergy/AdvReac Type Severity Reaction Status Date / Time No Known Allergies Allergy Verified 05/04/24 15:04 Assessment & Plan Assessment & Plan (1) Bipolar 1 disorder: Status: Acute Code(s): F31.9 - Bipolar disorder, unspecified Plan The patient is a 74-year-old female, from [facility], , mother of adult children with a past history of bipolar disorder who responded fairly well with ECT in the past. Historically, she had catatonia that responded very well with ECT. Currently she was admitted for increased psychosis, impulsive behavior and manic symptoms. We tried to give her Abilify Maintena 400 mg with limited results so we started ECT. Plan 1. Continue with same medications. 2. Continue with ECT as scheduled At this moment we have seen some improvement of the patient to the point that she is on 15 minute checks. 3. Start tapering off Haldol on July 04 we lowered to 2 mg p.o. b.i.d. with a plan to discontinue in the next week. On July 05 we are keeping Haldol 2 mg p.o. q.h.s. over the weekend. And discontinue early next week 4. Abilify Maintena 400 mg IM on July 04. 5. Continue with Depakote 750 p.o. q.h.s. Reason for continued inpatient stay Substantial Risk for: inability to function, rapid decompensation and med/psych decompensation Time Spent With Patient Time: Total time managing care of this patient today _20___ minutes.
[2024-07-06 20:00] VITALS: BP 146/80; PULSE 68; RESP 18; TEMP 36.4; O2SAT 97
[2024-07-06] MEDS: HaloperidoL 1 MG TABLET 2 MG PO (21:22)
[2024-07-06] MEDS: ARIPiprazole 20 MG TABLET PO (21:23)
[2024-07-06] MEDS: Divalproex Sodium ER 250 MG TAB.ER.24H 750 MG PO (21:24)
[2024-07-06] MEDS: QUEtiapine Fumarate 200 MG TABLET PO (21:25)
--- NOTE | 2024-07-07 08:50 | HO.PSYCHPN ---
Subjective Subjective Date of Service: 07/07/24 Reason For Visit: Psychosis Subjective Notes: Conditional Voluntary Interim History: The nursing staff reported the patient had been pleasant cooperative doing very well fully compliant with her medications. On interview the patient denies new symptoms she looks internally preoccupied with mild psychomotor retardation. Mental Status Exam Mental Status Exam Patient Appearance: Appropriate Patient Orientation: Person and Situation Level of Consciousness: Awake and Appropriate Patient Behavior: Guarded and Passive Mood Description: Withdrawn Affect Description: Constricted Patient Cognition Impaired: Yes Ability to Follow Directions: Good Speech Pattern: Clear Hallucinations: None Delusions: Ideas of Reference Thought Process: Distracted and Slowed Thinking Thought Content: positive for [place] and positive for Poverty of Content Judgement: Poor Diagnostics Vital Signs (24Hr): Vital Signs - 24 hr 07/06/24 09:54 07/06/24 20:00 Temperature 97.6 F Pulse Rate 68 Respiratory Rate 18 Blood Pressure 109/59 L 146/80 H Pulse Oximetry 97 Oxygen Delivery Method Room Air BMI result Body Mass Index 23.0 Labs 05/04/24 15:03 05/22/24 08:03 Imaging Radiology Impressions: ITS Impressions Head CT 05/16/24 14:30 IMPRESSION: There are no acute bleeds or territorial infarcts. No masses are demonstrated. Brain parenchymal attenuation is unremarkable. Medications Medications Current Medications Acetaminophen (Acetaminophen 325 Mg Tablet) 650 mg PO Q6H PRN PRN Reason: Headache/Pain Mild Scale (1-3) Last Admin: 07/04/24 10:04 Dose: 650 mg Al Hydroxide/Mg Hydroxide (Magnesium Hydrox/Alum Hydrox 30 Ml Oral.Susp) 30 ml PO Q6H PRN PRN Reason: Heartburn/Nausea Aripiprazole (Aripiprazole 20 Mg Tablet) 20 mg PO BEDTIME [facility] Last Admin: 07/06/24 21:23 Dose: 20 mg Aripiprazole (Aripiprazole Er 400 Mg Suser.Syr) 400 mg IM Q30D [facility] Last Admin: 07/04/24 15:17 Dose: 400 mg Benztropine Mesylate (Benztropine Mesylate 0.5 Mg Tablet) 0.5 mg PO BID [facility] Last Admin: 07/06/24 21:24 Dose: 0.5 mg Bisacodyl (Bisacodyl 10 Mg Supp.Rect) 10 mg LA DAILY PRN PRN Reason: Constipation Divalproex Sodium (Divalproex Sodium Er 250 Mg Tab.Er.24h) 750 mg PO BEDTIME [facility] Last Admin: 07/06/24 21:24 Dose: 750 mg Docusate Sodium (Docusate Sodium 100 Mg Capsule) 200 mg PO BID [facility] Last Admin: 07/06/24 21:25 Dose: 200 mg Famotidine (Famotidine 20 Mg Tablet) 20 mg PO DAILY [facility] Last Admin: 07/06/24 09:54 Dose: 20 mg Haloperidol (Haloperidol 5 Mg Tablet) 5 mg PO Q6H PRN PRN Reason: Psychosis Last Admin: 06/25/24 13:27 Dose: 5 mg Haloperidol (Haloperidol 1 Mg Tablet) 2 mg PO BEDTIME [facility] Last Admin: 07/06/24 21:22 Dose: 2 mg Haloperidol Lactate (Haloperidol Lactate 5 Mg/Ml Vial) 5 mg IM TID PRN PRN Reason: Refusal antipsychotics Last Admin: 06/27/24 22:06 Dose: 5 mg Lisinopril (Lisinopril 2.5 Mg Tablet) 2.5 mg PO DAILY [facility]; Protocol Last Admin: 07/06/24 09:54 Dose: 2.5 mg Lorazepam (Lorazepam 1 Mg Tablet) 2 mg PO TID PRN PRN Reason: agitation Last Admin: 06/24/24 15:19 Dose: 2 mg Magnesium Hydroxide (Milk Of Magnesia 30 Ml Oral.Susp) 30 ml PO DAILY PRN PRN Reason: Constipation Last Admin: 05/25/24 09:57 Dose: 30 ml Ondansetron HCl (Ondansetron Odt 4 Mg Tab.Rapdis) 8 mg TRANSLINGU Q8H PRN PRN Reason: Nausea and Vomiting Last Admin: 05/26/24 11:02 Dose: 8 mg Polyethylene Glycol (Polyethylene Glycol 3350 17 Gm Powd.Pack) 17 gm PO DAILY PRN PRN Reason: constipation Last Admin: 05/15/24 17:41 Dose: 17 gm Quetiapine Fumarate (Quetiapine Fumarate 200 Mg Tablet) 200 mg PO BEDTIME [facility] Last Admin: 07/06/24 21:25 Dose: 200 mg Sodium Biphosphate/Sodium Phosphate (Sodium Phosphate,[place]-Dibasic 133 Ml Enema) 133 ml LA ONCE PRN PRN Reason: severe constipation Last Admin: 05/13/24 18:19 Dose: 133 ml Trazodone HCl (Trazodone Hcl 50 Mg Tablet) 50 mg PO BEDTIME X1 PRN PRN Reason: Insomnia Last Admin: 06/30/24 20:27 Dose: 50 mg Allergies Allergies Allergy/AdvReac Type Severity Reaction Status Date / Time No Known Allergies Allergy Verified 05/04/24 15:04 Assessment & Plan Assessment & Plan (1) Bipolar 1 disorder: Status: Acute Code(s): F31.9 - Bipolar disorder, unspecified Plan The patient is a 74-year-old female, from [facility], , mother of adult children with a past history of bipolar disorder who responded fairly well with ECT in the past. Historically, she had catatonia that responded very well with ECT. Currently she was admitted for increased psychosis, impulsive behavior and manic symptoms. We tried to give her Abilify Maintena 400 mg with limited results so we started ECT. Plan 1. Continue with same medications. 2. Continue with ECT as scheduled At this moment we have seen some improvement of the patient to the point that she is on 15 minute checks. 3. Start tapering off Haldol on July 04 we lowered to 2 mg p.o. b.i.d. with a plan to discontinue in the next week. On July 05 we are keeping Haldol 2 mg p.o. q.h.s. over the weekend. And discontinue early next week 4. Abilify Maintena 400 mg IM on July 04. 5. Continue with Depakote 750 p.o. q.h.s. Reason for continued inpatient stay Substantial Risk for: inability to function, rapid decompensation and med/psych decompensation Time Spent With Patient Time: Total time managing care of this patient today _20___ minutes.
[2024-07-07 09:18] VITALS: BP 121/68; PULSE 66; RESP 15; TEMP 36.7; O2SAT 94
[2024-07-07] MEDS: lisinopriL 2.5 MG TABLET PO (09:19)
[2024-07-07] MEDS: Famotidine 20 MG TABLET PO (09:19)
[2024-07-07] MEDS: Docusate Sodium 100 MG CAPSULE 200 MG PO ×2 (09:20→20:43)
[2024-07-07] MEDS: Benztropine Mesylate 0.5 MG TABLET PO ×2 (09:20→20:43)
[2024-07-07] MEDS: Milk of Magnesia 30 ML ORAL.SUSP PO (09:25)
[2024-07-07 20:00] VITALS: BP 104/55; PULSE 61; RESP 16; TEMP 36.4; O2SAT 100
[2024-07-07] MEDS: Divalproex Sodium ER 250 MG TAB.ER.24H 750 MG PO (20:41)
[2024-07-07] MEDS: HaloperidoL 1 MG TABLET 2 MG PO (20:42)
[2024-07-07] MEDS: QUEtiapine Fumarate 200 MG TABLET PO (20:42)
[2024-07-07] MEDS: ARIPiprazole 20 MG TABLET PO (20:43)
[2024-07-08 08:01] VITALS: BP 99/59; PULSE 78; RESP 16; TEMP 36.2; O2SAT 97
[2024-07-08] MEDS: Famotidine 20 MG TABLET PO (08:02)
[2024-07-08] MEDS: Docusate Sodium 100 MG CAPSULE 200 MG PO ×2 (08:02→21:03)
[2024-07-08] MEDS: Benztropine Mesylate 0.5 MG TABLET PO ×2 (08:04→21:04)
--- NOTE | 2024-07-08 09:40 | P.PNPSI_ITS ---
Subjective Subjective Date of Service: 07/08/24 Reason For Visit: Psychosis Subjective Notes: Conditional Voluntary Healthcare Proxy: Yes Interim History: The nursing staff reported the patient slept well last night fully compliant with treatment. On interview the patient denies new symptoms she looks a lot brighter. Scheduled for ECT tomorrow Mental Status Exam Mental Status Exam Patient Appearance: Appropriate Patient Orientation: Person and Situation Level of Consciousness: Awake and Appropriate Patient Behavior: Guarded and Passive Mood Description: Withdrawn Affect Description: Blunted Patient Cognition Impaired: Yes Ability to Follow Directions: Good Speech Pattern: Clear Hallucinations: None Delusions: Not Present Thought Process: Distracted and Slowed Thinking Thought Content: positive for [place] and positive for Poverty of Content Judgement: Poor Diagnostics Vital Signs (24Hr): Vital Signs - 24 hr 07/07/24 20:00 07/08/24 08:01 Temperature 97.6 F 97.2 F Pulse Rate 61 78 Respiratory Rate 16 16 Blood Pressure 104/55 L 99/59 L Pulse Oximetry 100 97 Oxygen Delivery Method Room Air Room Air BMI result Body Mass Index 23.0 Labs 05/04/24 15:03 05/22/24 08:03 Imaging Radiology Impressions: ITS Impressions Head CT 05/16/24 14:30 IMPRESSION: There are no acute bleeds or territorial infarcts. No masses are demonstrated. Brain parenchymal attenuation is unremarkable. Medications Medications Current Medications Acetaminophen (Acetaminophen 325 Mg Tablet) 650 mg PO Q6H PRN PRN Reason: Headache/Pain Mild Scale (1-3) Last Admin: 07/04/24 10:04 Dose: 650 mg Al Hydroxide/Mg Hydroxide (Magnesium Hydrox/Alum Hydrox 30 Ml Oral.Susp) 30 ml PO Q6H PRN PRN Reason: Heartburn/Nausea Aripiprazole (Aripiprazole 20 Mg Tablet) 20 mg PO BEDTIME [facility] Last Admin: 07/07/24 20:43 Dose: 20 mg Aripiprazole (Aripiprazole Er 400 Mg Suser.Syr) 400 mg IM Q30D [facility] Last Admin: 07/04/24 15:17 Dose: 400 mg Benztropine Mesylate (Benztropine Mesylate 0.5 Mg Tablet) 0.5 mg PO BID [facility] Last Admin: 07/08/24 08:04 Dose: 0.5 mg Bisacodyl (Bisacodyl 10 Mg Supp.Rect) 10 mg CA DAILY PRN PRN Reason: Constipation Divalproex Sodium (Divalproex Sodium Er 250 Mg Tab.Er.24h) 750 mg PO BEDTIME [facility] Last Admin: 07/07/24 20:41 Dose: 750 mg Docusate Sodium (Docusate Sodium 100 Mg Capsule) 200 mg PO BID [facility] Last Admin: 07/08/24 08:02 Dose: 200 mg Famotidine (Famotidine 20 Mg Tablet) 20 mg PO DAILY [facility] Last Admin: 07/08/24 08:02 Dose: 20 mg Haloperidol (Haloperidol 5 Mg Tablet) 5 mg PO Q6H PRN PRN Reason: Psychosis Last Admin: 06/25/24 13:27 Dose: 5 mg Haloperidol (Haloperidol 1 Mg Tablet) 2 mg PO BEDTIME [facility] Last Admin: 07/07/24 20:42 Dose: 2 mg Haloperidol Lactate (Haloperidol Lactate 5 Mg/Ml Vial) 5 mg IM TID PRN PRN Reason: Refusal antipsychotics Last Admin: 06/27/24 22:06 Dose: 5 mg Lisinopril (Lisinopril 2.5 Mg Tablet) 2.5 mg PO DAILY [facility]; Protocol Last Admin: 07/08/24 08:03 Dose: Not Given Lorazepam (Lorazepam 1 Mg Tablet) 2 mg PO TID PRN PRN Reason: agitation Last Admin: 06/24/24 15:19 Dose: 2 mg Magnesium Hydroxide (Milk Of Magnesia 30 Ml Oral.Susp) 30 ml PO DAILY PRN PRN Reason: Constipation Last Admin: 07/07/24 09:25 Dose: 30 ml Ondansetron HCl (Ondansetron Odt 4 Mg Tab.Rapdis) 8 mg TRANSLINGU Q8H PRN PRN Reason: Nausea and Vomiting Last Admin: 05/26/24 11:02 Dose: 8 mg Polyethylene Glycol (Polyethylene Glycol 3350 17 Gm Powd.Pack) 17 gm PO DAILY PRN PRN Reason: constipation Last Admin: 05/15/24 17:41 Dose: 17 gm Quetiapine Fumarate (Quetiapine Fumarate 200 Mg Tablet) 200 mg PO BEDTIME [facility] Last Admin: 07/07/24 20:42 Dose: 200 mg Sodium Biphosphate/Sodium Phosphate (Sodium Phosphate,[place]-Dibasic 133 Ml Enema) 133 ml CA ONCE PRN PRN Reason: severe constipation Last Admin: 05/13/24 18:19 Dose: 133 ml Trazodone HCl (Trazodone Hcl 50 Mg Tablet) 50 mg PO BEDTIME MRX1 PRN PRN Reason: Insomnia Last Admin: 06/30/24 20:27 Dose: 50 mg Allergies Allergies Allergy/AdvReac Type Severity Reaction Status Date / Time No Known Allergies Allergy Verified 05/04/24 15:04 Assessment & Plan Assessment & Plan (1) Bipolar 1 disorder: Status: Acute Code(s): F31.9 - Bipolar disorder, unspecified Plan The patient is a 74-year-old female, from [facility], , mother of adult children with a past history of bipolar disorder who responded fairly well with ECT in the past. Historically, she had catatonia that responded very well with ECT. Currently she was admitted for increased psychosis, impulsive behavior and manic symptoms. We tried to give her Abilify Maintena 400 mg with limited results so we started ECT. Plan 1. Continue with same medications. 2. Continue with ECT as scheduled At this moment we have seen some improvement of the patient to the point that she is on 15 minute checks. 3. Start tapering off Haldol on July 04 we lowered to 2 mg p.o. b.i.d. with a plan to discontinue in the next week. On July 05 we are keeping Haldol 2 mg p.o. q.h.s. over the weekend. And discontinue early next week 4. Abilify Maintena 400 mg IM on July 04. 5. Continue with Depakote 750 p.o. q.h.s. Reason for continued inpatient stay Substantial Risk for: inability to function, rapid decompensation and med/psych decompensation Time Spent With Patient Time: Total time managing care of this patient today __20__ minutes.
[2024-07-08 20:00] VITALS: BP 119/65; PULSE 69; RESP 16; TEMP 36.4; O2SAT 98
[2024-07-08] MEDS: QUEtiapine Fumarate 200 MG TABLET PO (21:04)
[2024-07-08] MEDS: HaloperidoL 1 MG TABLET 2 MG PO (21:04)
[2024-07-08] MEDS: ARIPiprazole 20 MG TABLET PO (21:04)
[2024-07-08] MEDS: Divalproex Sodium ER 250 MG TAB.ER.24H 750 MG PO (21:05)
[2024-07-09] VITALS (8 sets, daily range): BP systolic 103–145; BP diastolic 52–84; PULSE 69–85; RESP 16–20; TEMP 35.9–37.1; O2SAT 95–97
[2024-07-09] MEDS: Benztropine Mesylate 0.5 MG TABLET PO ×2 (09:54→21:16)
[2024-07-09] MEDS: lisinopriL 2.5 MG TABLET PO (09:54)
[2024-07-09] MEDS: Docusate Sodium 100 MG CAPSULE 200 MG PO ×2 (09:54→21:15)
[2024-07-09] MEDS: Famotidine 20 MG TABLET PO (09:54)
--- NOTE | 2024-07-09 14:02 | HO.PSYCHPN ---
Subjective Subjective Date of Service: 07/09/24 Reason For Visit: Psychosis Subjective Notes: Conditional Voluntary Interim History: The nursing staff reported the patient had been fully compliant with treatment, pleasant cooperative she slept 8 hours. Today she is scheduled to have ECT and she was put on the 2nd shift after 17:00. Still NPO. On interview the patient denies new symptoms she feels much better Mental Status Exam Mental Status Exam Patient Appearance: Appropriate Patient Orientation: Person and Situation Level of Consciousness: Awake and Appropriate Patient Behavior: Guarded and Passive Mood Description: Withdrawn Affect Description: Constricted Patient Cognition Impaired: Yes Ability to Follow Directions: Good Speech Pattern: Clear Hallucinations: None Delusions: Ideas of Reference Thought Process: Distracted and Slowed Thinking Thought Content: positive for Waka and positive for Poverty of Content Judgement: Fair Diagnostics Vital Signs (24Hr): Vital Signs - 24 hr 07/08/24 20:00 07/09/24 09:54 07/09/24 09:54 Temperature 97.5 F 98.1 F Pulse Rate 69 75 Respiratory Rate 16 16 Blood Pressure 119/65 103/52 L 103/52 L Pulse Oximetry 98 97 Oxygen Delivery Method Room Air Room Air BMI result Body Mass Index 23.0 Labs 05/04/24 15:03 05/22/24 08:03 Imaging Radiology Impressions: ITS Impressions Head CT 05/16/24 14:30 IMPRESSION: There are no acute bleeds or territorial infarcts. No masses are demonstrated. Brain parenchymal attenuation is unremarkable. Medications Medications Current Medications Acetaminophen (Acetaminophen 325 Mg Tablet) 650 mg PO Q6H PRN PRN Reason: Headache/Pain Mild Scale (1-3) Last Admin: 07/04/24 10:04 Dose: 650 mg Al Hydroxide/Mg Hydroxide (Magnesium Hydrox/Alum Hydrox 30 Ml Oral.Susp) 30 ml PO Q6H PRN PRN Reason: Heartburn/Nausea Aripiprazole (Aripiprazole 20 Mg Tablet) 20 mg PO BEDTIME [facility] Last Admin: 07/08/24 21:04 Dose: 20 mg Aripiprazole (Aripiprazole Er 400 Mg Suser.Syr) 400 mg IM Q30D [facility] Last Admin: 07/04/24 15:17 Dose: 400 mg Benztropine Mesylate (Benztropine Mesylate 0.5 Mg Tablet) 0.5 mg PO BID [facility] Last Admin: 07/09/24 09:54 Dose: 0.5 mg Bisacodyl (Bisacodyl 10 Mg Supp.Rect) 10 mg SC DAILY PRN PRN Reason: Constipation Divalproex Sodium (Divalproex Sodium Er 250 Mg Tab.Er.24h) 750 mg PO BEDTIME [facility] Last Admin: 07/08/24 21:05 Dose: 750 mg Docusate Sodium (Docusate Sodium 100 Mg Capsule) 200 mg PO BID [facility] Last Admin: 07/09/24 09:54 Dose: 200 mg Famotidine (Famotidine 20 Mg Tablet) 20 mg PO DAILY [facility] Last Admin: 07/09/24 09:54 Dose: 20 mg Haloperidol (Haloperidol 5 Mg Tablet) 5 mg PO Q6H PRN PRN Reason: Psychosis Last Admin: 06/25/24 13:27 Dose: 5 mg Haloperidol Lactate (Haloperidol Lactate 5 Mg/Ml Vial) 5 mg IM TID PRN PRN Reason: Refusal antipsychotics Last Admin: 06/27/24 22:06 Dose: 5 mg Lisinopril (Lisinopril 2.5 Mg Tablet) 2.5 mg PO DAILY [facility]; Protocol Last Admin: 07/09/24 09:54 Dose: 2.5 mg Lorazepam (Lorazepam 1 Mg Tablet) 2 mg PO TID PRN PRN Reason: agitation Last Admin: 06/24/24 15:19 Dose: 2 mg Magnesium Hydroxide (Milk Of Magnesia 30 Ml Oral.Susp) 30 ml PO DAILY PRN PRN Reason: Constipation Last Admin: 07/07/24 09:25 Dose: 30 ml Ondansetron HCl (Ondansetron Odt 4 Mg Tab.Rapdis) 8 mg TRANSLINGU Q8H PRN PRN Reason: Nausea and Vomiting Last Admin: 05/26/24 11:02 Dose: 8 mg Polyethylene Glycol (Polyethylene Glycol 3350 17 Gm Powd.Pack) 17 gm PO DAILY PRN PRN Reason: constipation Last Admin: 05/15/24 17:41 Dose: 17 gm Quetiapine Fumarate (Quetiapine Fumarate 200 Mg Tablet) 200 mg PO BEDTIME [facility] Last Admin: 07/08/24 21:04 Dose: 200 mg Sodium Biphosphate/Sodium Phosphate (Sodium Phosphate,[place]-Dibasic 133 Ml Enema) 133 ml SC ONCE PRN PRN Reason: severe constipation Last Admin: 05/13/24 18:19 Dose: 133 ml Trazodone HCl (Trazodone Hcl 50 Mg Tablet) 50 mg PO BEDTIME MRX1 PRN PRN Reason: Insomnia Last Admin: 06/30/24 20:27 Dose: 50 mg Allergies Allergies Allergy/AdvReac Type Severity Reaction Status Date / Time No Known Allergies Allergy Verified 05/04/24 15:04 Assessment & Plan Assessment & Plan (1) Bipolar 1 disorder: Status: Acute Code(s): F31.9 - Bipolar disorder, unspecified Plan The patient is a 74-year-old female, from [facility], , mother of adult children with a past history of bipolar disorder who responded fairly well with ECT in the past. Historically, she had catatonia that responded very well with ECT. Currently she was admitted for increased psychosis, impulsive behavior and manic symptoms. We tried to give her Abilify Maintena 400 mg with limited results so we started ECT. Plan 1. Continue with same medications. 2. Continue with ECT as scheduled At this moment we have seen some improvement of the patient to the point that she is on 15 minute checks. 3. Start tapering off Haldol on July 04 we lowered to 2 mg p.o. b.i.d. with a plan to discontinue in the next week. On July 05 we are keeping Haldol 2 mg p.o. q.h.s. over the weekend. And discontinue early next week 4. Abilify Maintena 400 mg IM on July 04. 5. Continue with Depakote 750 p.o. q.h.s. Reason for continued inpatient stay Substantial Risk for: inability to function, rapid decompensation and med/psych decompensation Time Spent With Patient Time: Total time managing care of this patient today __20__ minutes.
--- NOTE | 2024-07-09 18:42 | MHC.SHP ---
Pre-Procedural Eval Section A - 24 Hr Update-Section A only Date of Service: 07/09/24 The patient is an INPATIENT: Yes Changes since office visit: Yes Patient answered all questions; No Cold of Flu in the past 2 weeks, No New Medical Problems and No Changes in Medication The patient has been examined within 24 hours of the surgical procedure. The History & Physical has been completed within 30 days and I have reviewed it.: Yes Section B - Complete if H&P > 30 days Chief Complaint: Psychosis Allergies: Allergies Allergy/AdvReac Type Severity Reaction Status Date / Time No Known Allergies Allergy Verified 05/04/24 15:04 Plan I have reviewed the history and physical and performed a pertinent physical examination on my patient. No changes have occurred unless specified. Time Spent With Patient Time: Total time managing care of this patient today ____ minutes.
--- NOTE | 2024-07-09 18:43 | HO.ECTPROC ---
ECT Procedure Note Diagnosis/Treatment Date of Service: 07/10/24 Diagnosis: Bipolar disorder Previous ECT Date: 06/29/24 Current Treatment Number: 4 Treatment: Series Interval Clinical Notes: Patient seen somewhat withdrawn flat not manic done later in the day at 7 pm ECT done bitemporal at 0.5 100%, no complications, woke up well.Pt on abilify and seroquel ? need for dual tx Time: Total time managing care of this patient today _30___ minutes. ECT Settings Device: THYMATRON DGx Electrode Placement: Bitemporal Program/Pulse Width: 0.50 Energy Percent: 100 Seizure Duration By EEG (in seconds): 63 Medications Administration General Anesthetic: Etomidate (12) Muscle Relaxant: Succinylcholine (80) Ancillary Medications Anti-emetics: Zofran - Pre ECT Airway Management Airway Management: Bag Mask Ventilation Treatment Recommendations No Changes Recommended: No change Pt Tolerated Procedure w/o Issue: Yes
--- NOTE | 2024-07-09 18:51 | P.CONAN_ITS ---
[facility] Active Problems Active Problems: All Active Problems Dementia (Acute) Bipolar 1 disorder (Acute) Family History Family history of problems with anesthesia: No Surgical History History of Problems with Anesthesia: No Social History Social History Household Members: Children Housing: House Patient Tobacco Use Status: Never used Tobacco Smoked in Last 30 Days: No Use of substances other than those prescribed or required for medical reasons: No Currently Displaying Signs/Symptoms of Drug Intoxication Withdrawal: No Have you been hit, kicked, punched, or otherwise hurt by someone within the past year? If so, by whom?: No Do you feel safe in your current relationship?: No Current Relationship Is there a partner from a previous relationship who is making you feel unsafe now?: No Are you made to feel afraid or neglected: No Advance Directives: No Advance Directives Information Provided: No Do you have thoughts of harming others: None Do you have a plan to hurt others: No Plan Recently lost weight without trying: No Nutrition Risks: No Nutritional Risk Patient : No : No Sexual orientation: Straight/Heterosexual Meds Allergies Allergy/AdvReac Type Severity Reaction Status Date / Time No Known Allergies Allergy Verified 05/04/24 15:04 Active Medications: Current Medications Acetaminophen (Acetaminophen 325 Mg Tablet) 650 mg PO Q6H PRN PRN Reason: Headache/Pain Mild Scale (1-3) Last Admin: 07/04/24 10:04 Dose: 650 mg Al Hydroxide/Mg Hydroxide (Magnesium Hydrox/Alum Hydrox 30 Ml Oral.Susp) 30 ml PO Q6H PRN PRN Reason: Heartburn/Nausea Aripiprazole (Aripiprazole 20 Mg Tablet) 20 mg PO BEDTIME [facility] Last Admin: 07/08/24 21:04 Dose: 20 mg Aripiprazole (Aripiprazole Er 400 Mg Suser.Syr) 400 mg IM Q30D [facility] Last Admin: 07/04/24 15:17 Dose: 400 mg Benztropine Mesylate (Benztropine Mesylate 0.5 Mg Tablet) 0.5 mg PO BID [facility] Last Admin: 07/09/24 09:54 Dose: 0.5 mg Bisacodyl (Bisacodyl 10 Mg Supp.Rect) 10 mg [place] DAILY PRN PRN Reason: Constipation Divalproex Sodium (Divalproex Sodium Er 250 Mg Tab.Er.24h) 750 mg PO BEDTIME [facility] Last Admin: 07/08/24 21:05 Dose: 750 mg Docusate Sodium (Docusate Sodium 100 Mg Capsule) 200 mg PO BID [facility] Last Admin: 07/09/24 09:54 Dose: 200 mg Famotidine (Famotidine 20 Mg Tablet) 20 mg PO DAILY [facility] Last Admin: 07/09/24 09:54 Dose: 20 mg Haloperidol (Haloperidol 5 Mg Tablet) 5 mg PO Q6H PRN PRN Reason: Psychosis Last Admin: 06/25/24 13:27 Dose: 5 mg Haloperidol Lactate (Haloperidol Lactate 5 Mg/Ml Vial) 5 mg IM TID PRN PRN Reason: Refusal antipsychotics Last Admin: 06/27/24 22:06 Dose: 5 mg Lisinopril (Lisinopril 2.5 Mg Tablet) 2.5 mg PO DAILY [facility]; Protocol Last Admin: 07/09/24 09:54 Dose: 2.5 mg Lorazepam (Lorazepam 1 Mg Tablet) 2 mg PO TID PRN PRN Reason: agitation Last Admin: 06/24/24 15:19 Dose: 2 mg Magnesium Hydroxide (Milk Of Magnesia 30 Ml Oral.Susp) 30 ml PO DAILY PRN PRN Reason: Constipation Last Admin: 07/07/24 09:25 Dose: 30 ml Ondansetron HCl (Ondansetron Odt 4 Mg Tab.Rapdis) 8 mg TRANSLINGU Q8H PRN PRN Reason: Nausea and Vomiting Last Admin: 05/26/24 11:02 Dose: 8 mg Polyethylene Glycol (Polyethylene Glycol 3350 17 Gm Powd.Pack) 17 gm PO DAILY PRN PRN Reason: constipation Last Admin: 05/15/24 17:41 Dose: 17 gm Quetiapine Fumarate (Quetiapine Fumarate 200 Mg Tablet) 200 mg PO BEDTIME [facility] Last Admin: 07/08/24 21:04 Dose: 200 mg Sodium Biphosphate/Sodium Phosphate (Sodium Phosphate,[place]-Dibasic 133 Ml Enema) 133 ml VT ONCE PRN PRN Reason: severe constipation Last Admin: 05/13/24 18:19 Dose: 133 ml Trazodone HCl (Trazodone Hcl 50 Mg Tablet) 50 mg PO BEDTIME MRX1 PRN PRN Reason: Insomnia Last Admin: 06/30/24 20:27 Dose: 50 mg Home Medications ?Medication ?Instructions ?Recorded ?Confirmed ?Last Taken ?Type benztropine 0.5 mg tablet 0.5 mg PO BEDTIME 05/04/24 05/04/24 Unknown History divalproex 250 mg tablet,extended 250 mg PO BEDTIME 05/04/24 05/04/24 Unknown History release 24 hr lamotrigine 100 mg tablet 100 mg PO BEDTIME 05/04/24 05/04/24 Unknown History lisinopril 5 mg tablet 2.5 mg PO DAILY 05/04/24 05/04/24 Unknown History quetiapine 100 mg tablet 100 mg PO DAILY 05/04/24 05/04/24 Unknown History quetiapine 300 mg tablet 300 mg PO BEDTIME 05/04/24 05/04/24 Unknown History quetiapine 50 mg tablet 50 mg PO BID PRN Agitation 05/04/24 05/04/24 Unknown History Exam Height,Weight and Vital Signs: Height 5 ft Weight 53.342 kg Last Vital Signs Temp 98.8 F 07/09/24 17:52 Pulse 69 07/09/24 17:52 Resp 18 07/09/24 17:52 BP 124/63 07/09/24 17:52 Pulse Ox 96 07/09/24 17:52 O2 Del Method Room Air 07/09/24 17:52 O2 Flow Rate 2 07/04/24 07:59 Pertinent Lab Results Pertinent Lab Results: Laboratory Tests 05/04/24 05/05/24 05/05/24 15:03 12:44 13:08 WBC 4.9 RBC 4.49 Hgb 13.4 Hct 40.3 MCV 89.8 MCH 29.8 MCHC 33.3 RDW 13.4 Plt Count 215 MPV 9.1 L Immature Gran % (Auto) 0.2 Neut % (Auto) 51.7 Lymph % (Auto) 32.9 Winkler % (Auto) 11.1 H Eos % (Auto) 3.5 Baso % (Auto) 0.6 Lymph # (Auto) 1.6 Winkler # (Auto) 0.5 Eos # (Auto) 0.2 Baso # (Auto) 0.0 Abs Immat Gran (auto) 0.01 Absolute Neuts (auto) 2.5 Absolute Nucleated RBC 0.000 Nucleated RBC % (auto) 0.0 Hold Purple Top Sodium 141 Potassium 4.0 Chloride 102 Carbon Dioxide 31 H Anion Gap 12 BUN 19 H Creatinine 1.08 Estim Creat Clear Calc 37.5 Estimated GFR 50 Random Glucose 104 Fasting Glucose Calcium 9.4 Magnesium 2.3 Total Bilirubin 0.6 Direct Bilirubin AST 18 ALT 13 Alkaline Phosphatase 122 H Ammonia Total Protein 7.5 Albumin 4.2 Triglycerides Cholesterol LDL Cholesterol, Calc HDL Cholesterol TSH 1.25 Hold Yellow Top See Note Urine Color Urine Appearance Urine pH Ur Specific [place] Urine Protein Urine Glucose (UA) Urine Ketones Urine Blood Urine Nitrite Ur Leukocyte Esterase Urine RBC Urine WBC Ur Squamous Epith Cells Urine Bacteria Hyaline Casts Salicylates < 5.0 L Urine Opiates Screen Ur Buprenorphine Scrn Ur Oxycodone Screen Urine Methadone Screen Urine Fentanyl Screen Acetaminophen < 3 Ur Barbiturates Screen Valproic Acid < 12.5 L Ur Phencyclidine Scrn Ur Amphetamines Screen U Benzodiazepines Scrn Urine Cocaine Screen U Marijuana (THC) Screen Ethyl Alcohol < 10 05/05/24 05/09/24 05/16/24 13:16 08:10 20:12 WBC RBC Hgb Hct MCV MCH MCHC RDW Plt Count MPV Immature Gran % (Auto) Neut % (Auto) Lymph % (Auto) Winkler % (Auto) Eos % (Auto) Baso % (Auto) Lymph # (Auto) Winkler # (Auto) Eos # (Auto) Baso # (Auto) Abs Immat Gran (auto) Absolute Neuts (auto) Absolute Nucleated RBC Nucleated RBC % (auto) Hold Purple Top SEE NOTE Sodium 138 143 Potassium 3.8 4.1 Chloride 101 104 Carbon Dioxide 30 H 27 Anion Gap 11 L 16 BUN 27 H 26 H Creatinine 1.24 0.90 Estim Creat Clear Calc 32.6 44.6 Estimated GFR 43 > 60 Random Glucose 130 H Fasting Glucose 112 H Calcium 9.3 9.2 Magnesium Total Bilirubin 0.9 0.6 Direct Bilirubin 0.2 AST 18 15 ALT 12 10 Alkaline Phosphatase 100 96 Ammonia 25 Total Protein 7.3 6.7 Albumin 4.1 3.8 Triglycerides 61 Cholesterol 157 LDL Cholesterol, Calc 100 H HDL Cholesterol 45 TSH Hold Yellow Top Urine Color Yellow Urine Appearance Clear Urine pH 7.0 Ur Specific [place] 1.020 Urine Protein Negative Urine Glucose (UA) Negative Urine Ketones Negative Urine Blood Negative Urine Nitrite Negative Ur Leukocyte Esterase Moderate (2+) H Urine RBC 0-2 Urine WBC 0-5 Ur Squamous Epith Cells 0-2 Urine Bacteria None Seen Hyaline Casts 0-2 Salicylates Urine Opiates Screen Not Detected Ur Buprenorphine Scrn Not Detected Ur Oxycodone Screen Not Detected Urine Methadone Screen Not Detected Urine Fentanyl Screen Not Detected Acetaminophen Ur Barbiturates Screen Not Detected Valproic Acid 50.2 Ur Phencyclidine Scrn Not Detected Ur Amphetamines Screen Not Detected U Benzodiazepines Scrn Not Detected Urine Cocaine Screen Not Detected U Marijuana (THC) Screen Not Detected Ethyl Alcohol 05/21/24 05/22/24 05/24/24 08:09 08:03 18:05 WBC RBC Hgb Hct MCV MCH MCHC RDW Plt Count MPV Immature Gran % (Auto) Neut % (Auto) Lymph % (Auto) Winkler % (Auto) Eos % (Auto) Baso % (Auto) Lymph # (Auto) Winkler # (Auto) Eos # (Auto) Baso # (Auto) Abs Immat Gran (auto) Absolute Neuts (auto) Absolute Nucleated RBC Nucleated RBC % (auto) Hold Purple Top Sodium 143 Potassium 3.9 Chloride 105 Carbon Dioxide 29 Anion Gap 13 BUN 31 H Creatinine 1.11 Estim Creat Clear Calc 36.0 Estimated GFR 48 Random Glucose Fasting Glucose 81 Calcium 9.5 Magnesium Total Bilirubin 0.5 Direct Bilirubin AST 17 ALT 9 Alkaline Phosphatase 89 Ammonia 20 Total Protein 7.1 Albumin 4.1 Triglycerides Cholesterol LDL Cholesterol, Calc HDL Cholesterol TSH Hold Yellow Top Urine Color Urine Appearance Urine pH Ur Specific [place] Urine Protein Urine Glucose (UA) Urine Ketones Urine Blood Urine Nitrite Ur Leukocyte Esterase Urine RBC Urine WBC Ur Squamous Epith Cells Urine Bacteria Hyaline Casts Salicylates Urine Opiates Screen Ur Buprenorphine Scrn Ur Oxycodone Screen Urine Methadone Screen Urine Fentanyl Screen Acetaminophen Ur Barbiturates Screen Valproic Acid 142.5 H* 142.8 H* 113.4 H* Ur Phencyclidine Scrn Ur Amphetamines Screen U Benzodiazepines Scrn Urine Cocaine Screen U Marijuana (THC) Screen Ethyl Alcohol 05/27/24 05/30/24 10:04 09:29 WBC RBC Hgb Hct MCV MCH MCHC RDW Plt Count MPV Immature Gran % (Auto) Neut % (Auto) Lymph % (Auto) Wink[place] % (Auto) Eos % (Auto) Baso % (Auto) Lymph # (Auto) Wink[place] # (Auto) Eos # (Auto) Baso # (Auto) Abs Immat Gran (auto) Absolute Neuts (auto) Absolute Nucleated RBC Nucleated RBC % (auto) Hold Purple Top Sodium Potassium Chloride Carbon Dioxide Anion Gap BUN Creatinine Estim Creat Clear Calc Estimated GFR Random Glucose Fasting Glucose Calcium Magnesium Total Bilirubin Direct Bilirubin AST ALT Alkaline Phosphatase Ammonia Total Protein Albumin Triglycerides Cholesterol LDL Cholesterol, Calc HDL Cholesterol TSH Hold Yellow Top Urine Color Urine Appearance Urine pH Ur Specific [place] Urine Protein Urine Glucose (UA) Urine Ketones Urine Blood Urine Nitrite Ur Leukocyte Esterase Urine RBC Urine WBC Ur Squamous Epith Cells Urine Bacteria Hyaline Casts Salicylates Urine Opiates Screen Ur Buprenorphine Scrn Ur Oxycodone Screen Urine Methadone Screen Urine Fentanyl Screen Acetaminophen Ur Barbiturates Screen Valproic Acid 116.9 H* 114.7 H* Ur Phencyclidine Scrn Ur Amphetamines Screen U Benzodiazepines Scrn Urine Cocaine Screen U Marijuana (THC) Screen Ethyl Alcohol Airway Mallampati Class: III TM Dist: >3cm Neck ROM: Full Assessment and Plan Assessment Anesthesia Assessment: Anesthesia Plan Discussed and Chart Reviewed Final Anesthetic Review Family History of Problems with Anesthesia: No History of Problems with Anesthesia: No NPO: Yes ASA Class: III Final Preanesthetic Review: No Changes in Pt Med Stat, Meds/Allgs Chart Reviewed, Consent Obtained/Reviewed and Anes Risks/Benef Reviewed Patient Risk: Low Procedure Risk: Intermediate Anesthetic Plan Anesthetic Plan: GA Disposition: Standard PACU
--- NOTE | 2024-07-09 18:53 | PC.NURSE ---
IVF order requested from Dr Beck
[2024-07-09] MEDS: ARIPiprazole 20 MG TABLET PO (21:16)
[2024-07-09] MEDS: Divalproex Sodium ER 250 MG TAB.ER.24H 750 MG PO (21:17)
[2024-07-09] MEDS: QUEtiapine Fumarate 200 MG TABLET PO (21:18)
--- NOTE | 2024-07-10 05:45 | PC.NURSE ---
@2100 pt arrived from ECT. vitals signs stable. no pain reported. pt requested to eat before taking all of her HS meds. pt went to bed right after and slept all night.
[2024-07-10 08:36] VITALS: BP 107/57; PULSE 72; RESP 15; TEMP 36.8; O2SAT 99
[2024-07-10] MEDS: Docusate Sodium 100 MG CAPSULE 200 MG PO ×2 (08:38→19:54)
[2024-07-10] MEDS: Famotidine 20 MG TABLET PO (08:38)
[2024-07-10] MEDS: lisinopriL 2.5 MG TABLET PO (08:38)
[2024-07-10] MEDS: Benztropine Mesylate 0.5 MG TABLET PO ×2 (08:38→19:54)
--- NOTE | 2024-07-10 12:15 | HO.PSYCHPN ---
Subjective Subjective Date of Service: 07/10/24 Reason For Visit: Psychosis Subjective Notes: Conditional Voluntary Healthcare Proxy: Yes Interim History: The nursing staff reported the pathient has been fully compliant [facility] treatment, no behavioral disturbances. ECT was tolerated veery well. On interview, she denies new symptoms. Mental Status Exam Mental Status Exam Patient Appearance: Well Grooomed and Appropriate Patient Orientation: Person and Situation Level of Consciousness: Awake and Appropriate Patient Behavior: Guarded and Passive Mood Description: Calm Affect Description: Constricted Patient Cognition Impaired: Yes Ability to Follow Directions: Good Speech Pattern: Clear Hallucinations: None Delusions: Not Present Thought Process: Distracted and Slowed Thinking Thought Content: positive for [place] and positive for [place] of Content Judgement: Fair Diagnostics Vital Signs (24Hr): Vital Signs - 24 hr 07/09/24 17:52 07/09/24 19:15 07/09/24 19:20 Temperature 98.8 F 98.1 F Pulse Rate 69 85 84 Respiratory Rate 18 17 16 Blood Pressure 124/63 145/77 H 125/78 Pulse Oximetry 96 95 97 Oxygen Delivery Method Room Air Nasal Cannula with ETCO2 Nasal Cannula with ETCO2 Oxygen Flow Rate 2 2 07/09/24 19:25 07/09/24 19:30 07/09/24 19:45 Temperature 97.9 F Pulse Rate 82 81 83 Respiratory Rate 17 20 18 Blood Pressure 120/72 126/74 125/84 Pulse Oximetry 97 95 96 Oxygen Delivery Method Nasal Cannula with ETCO2 Room Air Room Air Oxygen Flow Rate 2 07/09/24 21:00 07/10/24 08:36 Temperature 96.6 F L 98.2 F Pulse Rate 71 72 Respiratory Rate 16 15 Blood Pressure 135/73 107/57 L Pulse Oximetry 95 99 Oxygen Delivery Method Room Air Room Air Oxygen Flow Rate BMI result Body Mass Index 23.0 Labs 05/04/24 15:03 05/22/24 08:03 Imaging Radiology Impressions: ITS Impressions Head CT 05/16/24 14:30 IMPRESSION: There are no acute bleeds or territorial infarcts. No masses are demonstrated. Brain parenchymal attenuation is unremarkable. Medications Medications Current Medications Acetaminophen (Acetaminophen 325 Mg Tablet) 650 mg PO Q6H PRN PRN Reason: Headache/Pain Mild Scale (1-3) Last Admin: 07/04/24 10:04 Dose: 650 mg Al Hydroxide/Mg Hydroxide (Magnesium Hydrox/Alum Hydrox 30 Ml Oral.Susp) 30 ml PO Q6H PRN PRN Reason: Heartburn/Nausea Aripiprazole (Aripiprazole Er 400 Mg Suser.Syr) 400 mg IM Q30D [facility] Last Admin: 07/04/24 15:17 Dose: 400 mg Aripiprazole (Aripiprazole 10 Mg Tablet) 10 mg PO BEDTIME [facility] Benztropine Mesylate (Benztropine Mesylate 0.5 Mg Tablet) 0.5 mg PO BID [facility] Last Admin: 07/10/24 08:38 Dose: 0.5 mg Bisacodyl (Bisacodyl 10 Mg Supp.Rect) 10 mg [place] DAILY PRN PRN Reason: Constipation Divalproex Sodium (Divalproex Sodium Er 250 Mg Tab.Er.24h) 750 mg PO BEDTIME [facility] Last Admin: 07/09/24 21:17 Dose: 750 mg Docusate Sodium (Docusate Sodium 100 Mg Capsule) 200 mg PO BID [facility] Last Admin: 07/10/24 08:38 Dose: 200 mg Famotidine (Famotidine 20 Mg Tablet) 20 mg PO DAILY [facility] Last Admin: 07/10/24 08:38 Dose: 20 mg Haloperidol (Haloperidol 5 Mg Tablet) 5 mg PO Q6H PRN PRN Reason: Psychosis Last Admin: 06/25/24 13:27 Dose: 5 mg Haloperidol Lactate (Haloperidol Lactate 5 Mg/Ml Vial) 5 mg IM TID PRN PRN Reason: Refusal antipsychotics Last Admin: 06/27/24 22:06 Dose: 5 mg Lisinopril (Lisinopril 2.5 Mg Tablet) 2.5 mg PO DAILY [facility]; Protocol Last Admin: 07/10/24 08:38 Dose: 2.5 mg Lorazepam (Lorazepam 1 Mg Tablet) 2 mg PO TID PRN PRN Reason: agitation Last Admin: 06/24/24 15:19 Dose: 2 mg Magnesium Hydroxide (Milk Of Magnesia 30 Ml Oral.Susp) 30 ml PO DAILY PRN PRN Reason: Constipation Last Admin: 07/07/24 09:25 Dose: 30 ml Naloxone HCl (Naloxone Hcl 0.4 Mg/Ml Vial) 0.04 mg IVPUSH Q5M PRN PRN Reason: Excessive sedation or RR < 8 Ondansetron HCl (Ondansetron Odt 4 Mg Tab.Rapdis) 8 mg TRANSLINGU Q8H PRN PRN Reason: Nausea and Vomiting Last Admin: 05/26/24 11:02 Dose: 8 mg Polyethylene Glycol (Polyethylene Glycol 3350 17 Gm Powd.Pack) 17 gm PO DAILY PRN PRN Reason: constipation Last Admin: 05/15/24 17:41 Dose: 17 gm Quetiapine Fumarate (Quetiapine Fumarate 200 Mg Tablet) 200 mg PO BEDTIME [facility] Last Admin: 07/09/24 21:18 Dose: 200 mg Sodium Biphosphate/Sodium Phosphate (Sodium Phosphate,[place]-Dibasic 133 Ml Enema) 133 ml [place] ONCE PRN PRN Reason: severe constipation Last Admin: 05/13/24 18:19 Dose: 133 ml Trazodone HCl (Trazodone Hcl 50 Mg Tablet) 50 mg PO BEDTIME MRX1 PRN PRN Reason: Insomnia Last Admin: 06/30/24 20:27 Dose: 50 mg Allergies Allergies Allergy/AdvReac Type Severity Reaction Status Date / Time No Known Allergies Allergy Verified 05/04/24 15:04 Assessment & Plan Assessment & Plan (1) Bipolar 1 disorder: Status: Acute Code(s): F31.9 - Bipolar disorder, unspecified Plan The patient is a 74-year-old female, from [facility], , mother of adult children with a past history of bipolar disorder who responded fairly well with ECT in the past. Historically, she had catatonia that responded very well with ECT. Currently she was admitted for increased psychosis, impulsive behavior and manic symptoms. We tried to give her Abilify Maintena 400 mg with limited results so we started ECT. Plan 1. Continue with same medications. 2. Continue with ECT as scheduled At this moment we have seen some improvement of the patient to the point that she is on 15 minute checks. 3. Start tapering off Haldol on July 04 we lowered to 2 mg p.o. b.i.d. with a plan to discontinue in the next week. On July 05 we are keeping Haldol 2 mg p.o. q.h.s. over the weekend. D/C on 07/09. 4. Abilify Maintena 400 mg IM on July 04. We are lowering her Abilify PO to 10 mg po dialy and probably d/c next week. 5. Continue with Depakote 750 p.o. q.h.s. Reason for continued inpatient stay Substantial Risk for: inability to function, rapid decompensation and med/psych decompensation Time Spent With Patient Time: Total time managing care of this patient today __20__ minutes.
[2024-07-10] MEDS: Divalproex Sodium ER 250 MG TAB.ER.24H 750 MG PO (19:53)
[2024-07-10] MEDS: ARIPiprazole 10 MG TABLET PO (19:54)
[2024-07-10] MEDS: QUEtiapine Fumarate 200 MG TABLET PO (19:54)
[2024-07-10 20:00] VITALS: BP 118/59; PULSE 67; RESP 16; TEMP 36.3; O2SAT 97
[2024-07-11] VITALS (10 sets, daily range): BP systolic 103–168; BP diastolic 53–100; PULSE 57–84; RESP 12–18; TEMP 36.3–37.2; O2SAT 94–100
--- NOTE | 2024-07-11 07:43 | MHC.SHP ---
Pre-Procedural Eval Section A - 24 Hr Update-Section A only Date of Service: 07/11/24 The patient is an INPATIENT: Yes Changes since office visit: Yes Changes in Medication; No Cold of Flu in the past 2 weeks, No New Medical Problems and No Patient answered all questions The patient has been examined within 24 hours of the surgical procedure. The History & Physical has been completed within 30 days and I have reviewed it.: Yes Section B - Complete if H&P > 30 days Chief Complaint: Psychosis Allergies: Allergies Allergy/AdvReac Type Severity Reaction Status Date / Time No Known Allergies Allergy Verified 05/04/24 15:04 Plan I have reviewed the history and physical and performed a pertinent physical examination on my patient. No changes have occurred unless specified. Time Spent With Patient Time: Total time managing care of this patient today ____ minutes.
--- NOTE | 2024-07-11 07:55 | HO.ECTPROC ---
ECT Procedure Note Diagnosis/Treatment Date of Service: 07/11/24 Diagnosis: Bipolar disorder Previous ECT Date: 07/11/24 Current Treatment Number: 5 Treatment: Series Interval Clinical Notes: Patient seen not overly manic somewhat flat cooperative able to answer question Time: Total time managing care of this patient today _30___ minutes. ECT Settings Device: THYMATRON DGx Electrode Placement: Bitemporal Program/Pulse Width: 0.50 Energy Percent: 100 Seizure Duration By EEG (in seconds): 35 Medications Administration General Anesthetic: Etomidate (12) Muscle Relaxant: Succinylcholine (80) Ancillary Medications Anti-emetics: Zofran - Pre ECT Airway Management Airway Management: Bag Mask Ventilation Treatment Recommendations No Changes Recommended: No change Pt Tolerated Procedure w/o Issue: Yes
--- NOTE | 2024-07-11 08:01 | HO.ANESPROP2 ---
HPI - Anesthesia Eval Consult details Narrative: 74 yo female patient for ECT PMFSH Active Problems Active Problems: All Active Problems Dementia (Acute) Bipolar 1 disorder (Acute) Family History Family history of problems with anesthesia: No Surgical History History of Problems with Anesthesia: No Social History Social History Household Members: Children Housing: House Patient Tobacco Use Status: Never used Tobacco Smoked in Last 30 Days: No Use of substances other than those prescribed or required for medical reasons: No Currently Displaying Signs/Symptoms of Drug Intoxication Withdrawal: No Have you been hit, kicked, punched, or otherwise hurt by someone within the past year? If so, by whom?: No Do you feel safe in your current relationship?: No Current Relationship Is there a partner from a previous relationship who is making you feel unsafe now?: No Are you made to feel afraid or neglected: No Advance Directives: No Advance Directives Information Provided: No Do you have thoughts of harming others: None Do you have a plan to hurt others: No Plan Recently lost weight without trying: No Nutrition Risks: No Nutritional Risk Patient : No : No Sexual orientation: Straight/Heterosexual Meds Allergies Allergy/AdvReac Type Severity Reaction Status Date / Time No Known Allergies Allergy Verified 05/04/24 15:04 Active Medications: Current Medications Acetaminophen (Acetaminophen 325 Mg Tablet) 650 mg PO Q6H PRN PRN Reason: Headache/Pain Mild Scale (1-3) Last Admin: 07/04/24 10:04 Dose: 650 mg Al Hydroxide/Mg Hydroxide (Magnesium Hydrox/Alum Hydrox 30 Ml Oral.Susp) 30 ml PO Q6H PRN PRN Reason: Heartburn/Nausea Aripiprazole (Aripiprazole Er 400 Mg Suser.Syr) 400 mg IM Q30D [facility] Last Admin: 07/04/24 15:17 Dose: 400 mg Aripiprazole (Aripiprazole 10 Mg Tablet) 10 mg PO BEDTIME [facility] Last Admin: 07/10/24 19:54 Dose: 10 mg Benztropine Mesylate (Benztropine Mesylate 0.5 Mg Tablet) 0.5 mg PO BID [facility] Last Admin: 07/10/24 19:54 Dose: 0.5 mg Bisacodyl (Bisacodyl 10 Mg Supp.Rect) 10 mg [place] DAILY PRN PRN Reason: Constipation Divalproex Sodium (Divalproex Sodium Er 250 Mg Tab.Er.24h) 750 mg PO BEDTIME [facility] Last Admin: 07/10/24 19:53 Dose: 750 mg Docusate Sodium (Docusate Sodium 100 Mg Capsule) 200 mg PO BID [facility] Last Admin: 07/10/24 19:54 Dose: 200 mg Famotidine (Famotidine 20 Mg Tablet) 20 mg PO DAILY [facility] Last Admin: 07/10/24 08:38 Dose: 20 mg Haloperidol (Haloperidol 5 Mg Tablet) 5 mg PO Q6H PRN PRN Reason: Psychosis Last Admin: 06/25/24 13:27 Dose: 5 mg Haloperidol Lactate (Haloperidol Lactate 5 Mg/Ml Vial) 5 mg IM TID PRN PRN Reason: Refusal antipsychotics Last Admin: 06/27/24 22:06 Dose: 5 mg Lisinopril (Lisinopril 2.5 Mg Tablet) 2.5 mg PO DAILY [facility]; Protocol Last Admin: 07/10/24 08:38 Dose: 2.5 mg Lorazepam (Lorazepam 1 Mg Tablet) 2 mg PO TID PRN PRN Reason: agitation Last Admin: 06/24/24 15:19 Dose: 2 mg Magnesium Hydroxide (Milk Of Magnesia 30 Ml Oral.Susp) 30 ml PO DAILY PRN PRN Reason: Constipation Last Admin: 07/07/24 09:25 Dose: 30 ml Naloxone HCl (Naloxone Hcl 0.4 Mg/Ml Vial) 0.04 mg IVPUSH Q5M PRN PRN Reason: Excessive sedation or RR < 8 Ondansetron HCl (Ondansetron Odt 4 Mg Tab.Rapdis) 8 mg TRANSLINGU Q8H PRN PRN Reason: Nausea and Vomiting Last Admin: 05/26/24 11:02 Dose: 8 mg Polyethylene Glycol (Polyethylene Glycol 3350 17 Gm Powd.Pack) 17 gm PO DAILY PRN PRN Reason: constipation Last Admin: 05/15/24 17:41 Dose: 17 gm Quetiapine Fumarate (Quetiapine Fumarate 200 Mg Tablet) 200 mg PO BEDTIME [facility] Last Admin: 07/10/24 19:54 Dose: 200 mg Sodium Biphosphate/Sodium Phosphate (Sodium Phosphate,[place]-Dibasic 133 Ml Enema) 133 ml [place] ONCE PRN PRN Reason: severe constipation Last Admin: 05/13/24 18:19 Dose: 133 ml Trazodone HCl (Trazodone Hcl 50 Mg Tablet) 50 mg PO BEDTIME MRX1 PRN PRN Reason: Insomnia Last Admin: 06/30/24 20:27 Dose: 50 mg Home Medications ?Medication ?Instructions ?Recorded ?Confirmed ?Last Taken ?Type benztropine 0.5 mg tablet 0.5 mg PO BEDTIME 05/04/24 05/04/24 Unknown History divalproex 250 mg tablet,extended 250 mg PO BEDTIME 05/04/24 05/04/24 Unknown History release 24 hr lamotrigine 100 mg tablet 100 mg PO BEDTIME 05/04/24 05/04/24 Unknown History lisinopril 5 mg tablet 2.5 mg PO DAILY 05/04/24 05/04/24 Unknown History quetiapine 100 mg tablet 100 mg PO DAILY 05/04/24 05/04/24 Unknown History quetiapine 300 mg tablet 300 mg PO BEDTIME 05/04/24 05/04/24 Unknown History quetiapine 50 mg tablet 50 mg PO BID PRN Agitation 05/04/24 05/04/24 Unknown History Exam Height,Weight and Vital Signs: Height 5 ft Weight 53.342 kg Last Vital Signs Temp 97.4 F 07/11/24 06:35 Pulse 73 07/11/24 06:35 Resp 16 07/11/24 06:35 BP 109/53 L 07/11/24 06:35 Pulse Ox 96 07/11/24 06:35 O2 Del Method Room Air 07/11/24 06:35 O2 Flow Rate 2 07/09/24 19:25 Pertinent Lab Results Pertinent Lab Results: Laboratory Tests 05/04/24 05/05/24 05/05/24 15:03 12:44 13:08 WBC 4.9 RBC 4.49 Hgb 13.4 Hct 40.3 MCV 89.8 MCH 29.8 MCHC 33.3 RDW 13.4 Plt Count 215 MPV 9.1 L Immature Gran % (Auto) 0.2 Neut % (Auto) 51.7 Lymph % (Auto) 32.9 [place] % (Auto) 11.1 H Eos % (Auto) 3.5 Baso % (Auto) 0.6 Lymph # (Auto) 1.6 [place] # (Auto) 0.5 Eos # (Auto) 0.2 Baso # (Auto) 0.0 Abs Immat Gran (auto) 0.01 Absolute Neuts (auto) 2.5 Absolute Nucleated RBC 0.000 Nucleated RBC % (auto) 0.0 Hold Purple Top Sodium 141 Potassium 4.0 Chloride 102 Carbon Dioxide 31 H Anion Gap 12 BUN 19 H Creatinine 1.08 Estim Creat Clear Calc 37.5 Estimated GFR 50 Random Glucose 104 Fasting Glucose Calcium 9.4 Magnesium 2.3 Total Bilirubin 0.6 Direct Bilirubin AST 18 ALT 13 Alkaline Phosphatase 122 H Ammonia Total Protein 7.5 Albumin 4.2 Triglycerides Cholesterol LDL Cholesterol, Calc HDL Cholesterol TSH 1.25 Hold Yellow Top See Note Urine Color Urine Appearance Urine pH Ur Specific [place] Urine Protein Urine Glucose (UA) Urine Ketones Urine Blood Urine Nitrite Ur Leukocyte Esterase Urine RBC Urine WBC Ur Squamous Epith Cells Urine Bacteria Hyaline Casts Salicylates < 5.0 L Urine Opiates Screen Ur Buprenorphine Scrn Ur Oxycodone Screen Urine Methadone Screen Urine Fentanyl Screen Acetaminophen < 3 Ur Barbiturates Screen Valproic Acid < 12.5 L Ur Phencyclidine Scrn Ur Amphetamines Screen U Benzodiazepines Scrn Urine Cocaine Screen U Marijuana (THC) Screen Ethyl Alcohol < 10 05/05/24 05/09/24 05/16/24 13:16 08:10 20:12 WBC RBC Hgb Hct MCV MCH MCHC RDW Plt Count MPV Immature Gran % (Auto) Neut % (Auto) Lymph % (Auto) [place] % (Auto) Eos % (Auto) Baso % (Auto) Lymph # (Auto) [place] # (Auto) Eos # (Auto) Baso # (Auto) Abs Immat Gran (auto) Absolute Neuts (auto) Absolute Nucleated RBC Nucleated RBC % (auto) Hold Purple Top SEE NOTE Sodium 138 143 Potassium 3.8 4.1 Chloride 101 104 Carbon Dioxide 30 H 27 Anion Gap 11 L 16 BUN 27 H 26 H Creatinine 1.24 0.90 Estim Creat Clear Calc 32.6 44.6 Estimated GFR 43 > 60 Random Glucose 130 H Fasting Glucose 112 H Calcium 9.3 9.2 Magnesium Total Bilirubin 0.9 0.6 Direct Bilirubin 0.2 AST 18 15 ALT 12 10 Alkaline Phosphatase 100 96 Ammonia 25 Total Protein 7.3 6.7 Albumin 4.1 3.8 Triglycerides 61 Cholesterol 157 LDL Cholesterol, Calc 100 H HDL Cholesterol 45 TSH Hold Yellow Top Urine Color Yellow Urine Appearance Clear Urine pH 7.0 Ur Specific [place] 1.020 Urine Protein Negative Urine Glucose (UA) Negative Urine Ketones Negative Urine Blood Negative Urine Nitrite Negative Ur Leukocyte Esterase Moderate (2+) H Urine RBC 0-2 Urine WBC 0-5 Ur Squamous Epith Cells 0-2 Urine Bacteria None Seen Hyaline Casts 0-2 Salicylates Urine Opiates Screen Not Detected Ur Buprenorphine Scrn Not Detected Ur Oxycodone Screen Not Detected Urine Methadone Screen Not Detected Urine Fentanyl Screen Not Detected Acetaminophen Ur Barbiturates Screen Not Detected Valproic Acid 50.2 Ur Phencyclidine Scrn Not Detected Ur Amphetamines Screen Not Detected U Benzodiazepines Scrn Not Detected Urine Cocaine Screen Not Detected U Marijuana (THC) Screen Not Detected Ethyl Alcohol 05/21/24 05/22/24 05/24/24 08:09 08:03 18:05 WBC RBC Hgb Hct MCV MCH MCHC RDW Plt Count MPV Immature Gran % (Auto) Neut % (Auto) Lymph % (Auto) [place] % (Auto) Eos % (Auto) Baso % (Auto) Lymph # (Auto) [place] # (Auto) Eos # (Auto) Baso # (Auto) Abs Immat Gran (auto) Absolute Neuts (auto) Absolute Nucleated RBC Nucleated RBC % (auto) Hold Purple Top Sodium 143 Potassium 3.9 Chloride 105 Carbon Dioxide 29 Anion Gap 13 BUN 31 H Creatinine 1.11 Estim Creat Clear Calc 36.0 Estimated GFR 48 Random Glucose Fasting Glucose 81 Calcium 9.5 Magnesium Total Bilirubin 0.5 Direct Bilirubin AST 17 ALT 9 Alkaline Phosphatase 89 Ammonia 20 Total Protein 7.1 Albumin 4.1 Triglycerides Cholesterol LDL Cholesterol, Calc HDL Cholesterol TSH Hold Yellow Top Urine Color Urine Appearance Urine pH Ur Specific [place] Urine Protein Urine Glucose (UA) Urine Ketones Urine Blood Urine Nitrite Ur Leukocyte Esterase Urine RBC Urine WBC Ur Squamous Epith Cells Urine Bacteria Hyaline Casts Salicylates Urine Opiates Screen Ur Buprenorphine Scrn Ur Oxycodone Screen Urine Methadone Screen Urine Fentanyl Screen Acetaminophen Ur Barbiturates Screen Valproic Acid 142.5 H* 142.8 H* 113.4 H* Ur Phencyclidine Scrn Ur Amphetamines Screen U Benzodiazepines Scrn Urine Cocaine Screen U Marijuana (THC) Screen Ethyl Alcohol 05/27/24 05/30/24 10:04 09:29 WBC RBC Hgb Hct MCV MCH MCHC RDW Plt Count MPV Immature Gran % (Auto) Neut % (Auto) Lymph % (Auto) [place] % (Auto) Eos % (Auto) Baso % (Auto) Lymph # (Auto) [place] # (Auto) Eos # (Auto) Baso # (Auto) Abs Immat Gran (auto) Absolute Neuts (auto) Absolute Nucleated RBC Nucleated RBC % (auto) Hold Purple Top Sodium Potassium Chloride Carbon Dioxide Anion Gap BUN Creatinine Estim Creat Clear Calc Estimated GFR Random Glucose Fasting Glucose Calcium Magnesium Total Bilirubin Direct Bilirubin AST ALT Alkaline Phosphatase Ammonia Total Protein Albumin Triglycerides Cholesterol LDL Cholesterol, Calc HDL Cholesterol TSH Hold Yellow Top Urine Color Urine Appearance Urine pH Ur Specific [place] Urine Protein Urine Glucose (UA) Urine Ketones Urine Blood Urine Nitrite Ur Leukocyte Esterase Urine RBC Urine WBC Ur Squamous Epith Cells Urine Bacteria Hyaline Casts Salicylates Urine Opiates Screen Ur Buprenorphine Scrn Ur Oxycodone Screen Urine Methadone Screen Urine Fentanyl Screen Acetaminophen Ur Barbiturates Screen Valproic Acid 116.9 H* 114.7 H* Ur Phencyclidine Scrn Ur Amphetamines Screen U Benzodiazepines Scrn Urine Cocaine Screen U Marijuana (THC) Screen Ethyl Alcohol Airway Mallampati Class: II TM Dist: >3cm Neck ROM: Full Loose/Missing/Broken Teeth: Yes (No teeth top. Only few teeth bottom.?loose- patient denies) Heart: RRR Lungs: CTAB Assessment and Plan Assessment Anesthesia Assessment: Anesthesia Plan Discussed and Chart Reviewed Final Anesthetic Review Family History of Problems with Anesthesia: No History of Problems with Anesthesia: No NPO: Yes ASA Class: III Final Preanesthetic Review: No Changes in Pt Med Stat, Meds/Allgs Chart Reviewed, Consent Obtained/Reviewed and Anes Risks/Benef Reviewed Patient Risk: Intermediate Procedure Risk: Intermediate Anesthetic Plan Anesthetic Plan: GA Disposition: Standard PACU and Inp. Admit - Standard Bed
--- NOTE | 2024-07-11 10:12 | P.PNPSI_ITS ---
Subjective Subjective Date of Service: 07/11/24 Reason For Visit: Psychosis Interim History: The nursing staff reported the patient had been compliant with treatment, she went to ECT today no complications. On interview the patient denies new symptoms she is pleasant cooperative but slightly confused after the procedure. We talked with her daughter Love who is pleased that she has improved remarkably. We will discontinue Haldol and Abilify since she is having EPS and she has unsteady dose of Abilify Maintena 400 mg daily Mental Status Exam Mental Status Exam Patient Appearance: Well Grooomed and Appropriate Patient Orientation: Person and Situation Level of Consciousness: Awake and Appropriate Patient Behavior: Appropriate Mood Description: Calm Affect Description: Constricted Patient Cognition Impaired: Yes Ability to Follow Directions: Good Speech Pattern: Clear Hallucinations: None Delusions: Not Present Thought Process: Distracted and Slowed Thinking Judgement: Fair Diagnostics Vital Signs (24Hr): Vital Signs - 24 hr 07/10/24 20:00 07/11/24 05:33 07/11/24 06:35 Temperature 97.3 F 97.3 F 97.4 F Pulse Rate 67 57 73 Respiratory Rate 16 16 16 Blood Pressure 118/59 L 111/57 L 109/53 L Pulse Oximetry 97 96 Oxygen Delivery Method Room Air Room Air Oxygen Flow Rate 07/11/24 08:30 07/11/24 08:38 07/11/24 08:45 Temperature 98.0 F Pulse Rate 84 83 77 Respiratory Rate 12 12 12 Blood Pressure 153/81 H 127/61 118/100 H Pulse Oximetry 96 95 94 Oxygen Delivery Method Nasal Cannula with ETCO2 Room Air Room Air Oxygen Flow Rate 3 07/11/24 09:00 07/11/24 09:20 07/11/24 09:28 Temperature 98.1 F 98.6 F 98.6 F Pulse Rate 76 79 79 Respiratory Rate 18 16 16 Blood Pressure 117/60 140/60 H 140/60 H Pulse Oximetry 97 99 99 Oxygen Delivery Method Room Air Oxygen Flow Rate BMI result Body Mass Index 23.0 Labs 05/04/24 15:03 05/22/24 08:03 Imaging Radiology Impressions: ITS Impressions Head CT 05/16/24 14:30 IMPRESSION: There are no acute bleeds or territorial infarcts. No masses are demonstrated. Brain parenchymal attenuation is unremarkable. Medications Medications Current Medications Acetaminophen (Acetaminophen 325 Mg Tablet) 650 mg PO Q6H PRN PRN Reason: Headache/Pain Mild Scale (1-3) Last Admin: 07/04/24 10:04 Dose: 650 mg Acetaminophen (Acetaminophen 325 Mg Tablet) 650 mg PO ONCE PRN PRN Reason: Pain, Mild (Pain Scale 1-3) Stop: 07/11/24 14:09 Al Hydroxide/Mg Hydroxide (Magnesium Hydrox/Alum Hydrox 30 Ml Oral.Susp) 30 ml PO Q6H PRN PRN Reason: Heartburn/Nausea Aripiprazole (Aripiprazole Er 400 Mg Suser.Syr) 400 mg IM Q30D [facility] Last Admin: 07/04/24 15:17 Dose: 400 mg Benztropine Mesylate (Benztropine Mesylate 0.5 Mg Tablet) 0.5 mg PO BID [facility] Last Admin: 07/10/24 19:54 Dose: 0.5 mg Bisacodyl (Bisacodyl 10 Mg Supp.Rect) 10 mg OK DAILY PRN PRN Reason: Constipation Divalproex Sodium (Divalproex Sodium Er 250 Mg Tab.Er.24h) 750 mg PO BEDTIME [facility] Last Admin: 07/10/24 19:53 Dose: 750 mg Docusate Sodium (Docusate Sodium 100 Mg Capsule) 200 mg PO BID [facility] Last Admin: 07/10/24 19:54 Dose: 200 mg Famotidine (Famotidine 20 Mg Tablet) 20 mg PO DAILY [facility] Last Admin: 07/10/24 08:38 Dose: 20 mg Haloperidol (Haloperidol 5 Mg Tablet) 5 mg PO Q6H PRN PRN Reason: Psychosis Last Admin: 06/25/24 13:27 Dose: 5 mg Haloperidol Lactate (Haloperidol Lactate 5 Mg/Ml Vial) 5 mg IM TID PRN PRN Reason: Refusal antipsychotics Last Admin: 06/27/24 22:06 Dose: 5 mg Lactated Ringer's (Lr) 1,000 mls @ 50 mls/hr IVCONT .Q20H [facility] Lisinopril (Lisinopril 2.5 Mg Tablet) 2.5 mg PO DAILY [facility]; Protocol Last Admin: 07/10/24 08:38 Dose: 2.5 mg Lorazepam (Lorazepam 1 Mg Tablet) 2 mg PO TID PRN PRN Reason: agitation Last Admin: 06/24/24 15:19 Dose: 2 mg Magnesium Hydroxide (Milk Of Magnesia 30 Ml Oral.Susp) 30 ml PO DAILY PRN PRN Reason: Constipation Last Admin: 07/07/24 09:25 Dose: 30 ml Naloxone HCl (Naloxone Hcl 0.4 Mg/Ml Vial) 0.04 mg IVPUSH Q5M PRN PRN Reason: Excessive sedation or RR < 8 Naloxone HCl (Naloxone Hcl 0.4 Mg/Ml Vial) 0.04 mg IVPUSH Q5M PRN PRN Reason: Excessive sedation or RR < 8 Ondansetron HCl (Ondansetron Odt 4 Mg Tab.Rapdis) 8 mg TRANSLINGU Q8H PRN PRN Reason: Nausea and Vomiting Last Admin: 05/26/24 11:02 Dose: 8 mg Ondansetron HCl (Ondansetron Hcl 4 Mg/2 Ml Vial) 4 mg IVPUSH ONCE PRN PRN Reason: Nausea and Vomiting Stop: 07/11/24 14:09 Polyethylene Glycol (Polyethylene Glycol 3350 17 Gm Powd.Pack) 17 gm PO DAILY PRN PRN Reason: constipation Last Admin: 05/15/24 17:41 Dose: 17 gm Quetiapine Fumarate (Quetiapine Fumarate 200 Mg Tablet) 200 mg PO BEDTIME [facility] Last Admin: 07/10/24 19:54 Dose: 200 mg Sodium Biphosphate/Sodium Phosphate (Sodium Phosphate,[place]-Dibasic 133 Ml Enema) 133 ml OK ONCE PRN PRN Reason: severe constipation Last Admin: 05/13/24 18:19 Dose: 133 ml Trazodone HCl (Trazodone Hcl 50 Mg Tablet) 50 mg PO BEDTIME MRX1 PRN PRN Reason: Insomnia Last Admin: 06/30/24 20:27 Dose: 50 mg Allergies Allergies Allergy/AdvReac Type Severity Reaction Status Date / Time No Known Allergies Allergy Verified 05/04/24 15:04 Assessment & Plan Assessment & Plan (1) Bipolar 1 disorder: Status: Acute Code(s): F31.9 - Bipolar disorder, unspecified Plan The patient is a 74-year-old female, from [facility], , mother of adult children with a past history of bipolar disorder who responded fairly well with ECT in the past. Historically, she had catatonia that responded very well with ECT. Currently she was admitted for increased psychosis, impulsive behavior and manic symptoms. We tried to give her Abilify Maintena 400 mg with limited results so we started ECT. Plan 1. Continue with same medications. 2. Continue with ECT as scheduled At this moment we have seen some improvement of the patient to the point that she is on 15 minute checks. 3. Start tapering off Haldol on July 04 we lowered to 2 mg p.o. b.i.d. with a plan to discontinue in the next week. On July 05 we are keeping Haldol 2 mg p.o. q.h.s. over the weekend. D/C on 07/09. 4. Abilify Maintena 400 mg IM on July 04. We are lowering her Abilify PO to 10 mg po dialy and probably d/c next week. 5. Continue with Depakote 750 p.o. q.h.s. Reason for continued inpatient stay Substantial Risk for: inability to function, rapid decompensation and med/psych decompensation Time Spent With Patient Time: Total time managing care of this patient today __20__ minutes.
[2024-07-11] MEDS: Docusate Sodium 100 MG CAPSULE 200 MG PO ×2 (10:22→20:34)
[2024-07-11] MEDS: Benztropine Mesylate 0.5 MG TABLET PO ×2 (10:22→20:34)
[2024-07-11] MEDS: lisinopriL 2.5 MG TABLET PO (10:22)
[2024-07-11] MEDS: Famotidine 20 MG TABLET PO (10:23)
[2024-07-11] MEDS: Divalproex Sodium ER 250 MG TAB.ER.24H 750 MG PO (20:34)
[2024-07-11] MEDS: QUEtiapine Fumarate 200 MG TABLET PO (20:34)
[2024-07-12 08:06] LABS: MANUAL DIFF FLAG NO
[2024-07-12 08:10] LABS: Basophils Percent Auto 0.6 % (0-2); Eosinophils Absolute Auto 0.1 X10*3/uL (0.0-0.4); Eosinophils Percent Auto 1.2 % (0-4); Hematocrit 35.5 % (37.0-47.0); Hemoglobin 11.9 g/dl (12.0-16.0); Imm Gran Abs Auto 0.04 X10*3/uL (0.00-0.03); Imm Gran Pct Auto 0.8 % (0.0-0.4); Lymphocytes Absolute Auto 2.1 X10*3/uL (1.2-4.9); Lymphocytes Percent Auto 42.1 % (20-40); Mean Corpuscular HGB Conc 33.5 g/dl (31.0-35.0); Mean Corpuscular Hemoglobin 30.3 pg (27.0-33.0); Mean Corpuscular Volume 90.3 fL (80.0-98.0); Mean Platelet Volume 10.1 fL (9.4-12.3); Monocytes Absolute Auto 0.4 X10*3/uL (0.1-1.2); Monocytes Percent Auto 8.4 % (2-11); Neutrophils Absolute Auto 2.3 x10*3/uL (2.0-8.3); Neutrophils Percent Auto 46.9 % (45-73); Platelet Count 161 X10*3/uL (160-400); Red Blood Count 3.93 X10*6/uL (4.20-5.50); Red Cell Distribution Width 14.2 % (11.0-16.0)
[2024-07-12 08:22] LABS: Anion Gap 11 (12-20); Blood Urea Nitrogen 22 mg/dL (9-16); Calcium 8.6 mg/dL (8.4-10.2); Carbon Dioxide 29 mmol/L (22-29); Chloride 106 mmol/L (96-108); Creatinine Clr Calc Pharmacy 41.5; Estimated Glomerular Filt Rate > 60; Glucose Random 118 mg/dL (60-115); Potassium 3.6 mmol/L (3.3-5.1); Sodium 142 mmol/L (135-145)
[2024-07-12 08:50] LABS: Valproate 65.8 mcg/mL (50.0-100.0)
[2024-07-12] MEDS: lisinopriL 2.5 MG TABLET PO (11:00)
[2024-07-12] MEDS: Docusate Sodium 100 MG CAPSULE 200 MG PO ×2 (11:01→20:48)
[2024-07-12] MEDS: Benztropine Mesylate 0.5 MG TABLET PO ×2 (11:01→20:49)
[2024-07-12] MEDS: Famotidine 20 MG TABLET PO (11:01)
--- NOTE | 2024-07-12 11:01 | P.PNPSI_ITS ---
Subjective Subjective Date of Service: 07/12/24 Reason For Visit: Psychosis Subjective Notes: Conditional Voluntary Healthcare Proxy: Yes Interim History: The nursing staff reported the patient had been fully compliant with treatment, pleasant cooperative visible in the unit confused after ECT yesterday. Today in the morning the staff reported she was still confused and she did not remember where her room was. The social service manager reported that the family wants to transfer her to [facility] working on discharge planning. On interview the patient denies new symptoms pleasantly confused easily redirectable. Mental Status Exam Mental Status Exam Patient Appearance: Well Grooomed Patient Orientation: Person and Situation Level of Consciousness: Awake and Appropriate Patient Behavior: Guarded and Passive Mood Description: Withdrawn Affect Description: Constricted Patient Cognition Impaired: Yes Ability to Follow Directions: Good Speech Pattern: Clear Hallucinations: None Delusions: Not Present Thought Process: Distracted and Slowed Thinking Thought Content: positive for [place] and positive for Poverty of Content Judgement: Fair Diagnostics Vital Signs (24Hr): Vital Signs - 24 hr 07/11/24 20:00 07/12/24 10:59 Temperature 99 F Pulse Rate 71 Respiratory Rate 18 Blood Pressure 103/61 Pulse Oximetry 100 Oxygen Delivery Method Room Air Room Air BMI result Body Mass Index 23.0 Labs 07/12/24 07:54 07/12/24 07:54 Labs: Laboratory Results - last 48 hr 07/12/24 07:54 WBC 5.0 RBC 3.93 L Hgb 11.9 L Hct 35.5 L MCV 90.3 MCH 30.3 MCHC 33.5 RDW 14.2 Plt Count 161 D MPV 10.1 Immature Gran % (Auto) 0.8 H Neut % (Auto) 46.9 Lymph % (Auto) 42.1 H [place] % (Auto) 8.4 Eos % (Auto) 1.2 Baso % (Auto) 0.6 Lymph # (Auto) 2.1 [place] # (Auto) 0.4 Eos # (Auto) 0.1 Baso # (Auto) 0.0 Abs Immat Gran (auto) 0.04 H Absolute Neuts (auto) 2.3 Absolute Nucleated RBC 0.000 Nucleated RBC % (auto) 0.0 Sodium 142 Potassium 3.6 Chloride 106 Carbon Dioxide 29 Anion Gap 11 L BUN 22 H Creatinine 0.88 Estim Creat Clear Calc 41.5 Estimated GFR > 60 Random Glucose 118 H Calcium 8.6 D Valproic Acid 65.8 Imaging Radiology Impressions: ITS Impressions Head CT 05/16/24 14:30 IMPRESSION: There are no acute bleeds or territorial infarcts. No masses are demonstrated. Brain parenchymal attenuation is unremarkable. Medications Medications Current Medications Acetaminophen (Acetaminophen 325 Mg Tablet) 650 mg PO Q6H PRN PRN Reason: Headache/Pain Mild Scale (1-3) Last Admin: 07/04/24 10:04 Dose: 650 mg Al Hydroxide/Mg Hydroxide (Magnesium Hydrox/Alum Hydrox 30 Ml Oral.Susp) 30 ml PO Q6H PRN PRN Reason: Heartburn/Nausea Aripiprazole (Aripiprazole Er 400 Mg Suser.Syr) 400 mg IM Q30D [facility] Last Admin: 07/04/24 15:17 Dose: 400 mg Benztropine Mesylate (Benztropine Mesylate 0.5 Mg Tablet) 0.5 mg PO BID [facility] Last Admin: 07/11/24 20:34 Dose: 0.5 mg Bisacodyl (Bisacodyl 10 Mg Supp.Rect) 10 mg IA DAILY PRN PRN Reason: Constipation Divalproex Sodium (Divalproex Sodium Er 250 Mg Tab.Er.24h) 750 mg PO BEDTIME [facility] Last Admin: 07/11/24 20:34 Dose: 750 mg Docusate Sodium (Docusate Sodium 100 Mg Capsule) 200 mg PO BID [facility] Last Admin: 07/11/24 20:34 Dose: 200 mg Famotidine (Famotidine 20 Mg Tablet) 20 mg PO DAILY [facility] Last Admin: 07/11/24 10:23 Dose: 20 mg Haloperidol (Haloperidol 5 Mg Tablet) 5 mg PO Q6H PRN PRN Reason: Psychosis Last Admin: 06/25/24 13:27 Dose: 5 mg Haloperidol Lactate (Haloperidol Lactate 5 Mg/Ml Vial) 5 mg IM TID PRN PRN Reason: Refusal antipsychotics Last Admin: 06/27/24 22:06 Dose: 5 mg Lisinopril (Lisinopril 2.5 Mg Tablet) 2.5 mg PO DAILY [facility]; Protocol Last Admin: 07/11/24 10:22 Dose: 2.5 mg Lorazepam (Lorazepam 1 Mg Tablet) 2 mg PO TID PRN PRN Reason: agitation Last Admin: 06/24/24 15:19 Dose: 2 mg Magnesium Hydroxide (Milk Of Magnesia 30 Ml Oral.Susp) 30 ml PO DAILY PRN PRN Reason: Constipation Last Admin: 07/07/24 09:25 Dose: 30 ml Naloxone HCl (Naloxone Hcl 0.4 Mg/Ml Vial) 0.04 mg IVPUSH Q5M PRN PRN Reason: Excessive sedation or RR < 8 Naloxone HCl (Naloxone Hcl 0.4 Mg/Ml Vial) 0.04 mg IVPUSH Q5M PRN PRN Reason: Excessive sedation or RR < 8 Ondansetron HCl (Ondansetron Odt 4 Mg Tab.Rapdis) 8 mg TRANSLINGU Q8H PRN PRN Reason: Nausea and Vomiting Last Admin: 05/26/24 11:02 Dose: 8 mg Polyethylene Glycol (Polyethylene Glycol 3350 17 Gm Powd.Pack) 17 gm PO DAILY PRN PRN Reason: constipation Last Admin: 05/15/24 17:41 Dose: 17 gm Quetiapine Fumarate (Quetiapine Fumarate 200 Mg Tablet) 200 mg PO BEDTIME [facility] Last Admin: 07/11/24 20:34 Dose: 200 mg Sodium Biphosphate/Sodium Phosphate (Sodium Phosphate,[place]-Dibasic 133 Ml Enema) 133 ml [place] ONCE PRN PRN Reason: severe constipation Last Admin: 05/13/24 18:19 Dose: 133 ml Trazodone HCl (Trazodone Hcl 50 Mg Tablet) 50 mg PO BEDTIME MRX1 PRN PRN Reason: Insomnia Last Admin: 06/30/24 20:27 Dose: 50 mg Allergies Allergies Allergy/AdvReac Type Severity Reaction Status Date / Time No Known Allergies Allergy Verified 05/04/24 15:04 Assessment & Plan Assessment & Plan (1) Bipolar 1 disorder: Status: Acute Code(s): F31.9 - Bipolar disorder, unspecified Plan The patient is a 74-year-old female, from [facility], , mother of adult children with a past history of bipolar disorder who responded fairly well with ECT in the past. Historically, she had catatonia that responded very well with ECT. Currently she was admitted for increased psychosis, impulsive behavior and manic symptoms. We tried to give her Abilify Maintena 400 mg with limited results so we started ECT. Plan 1. Continue with same medications. 2. Continue with ECT as scheduled At this moment we have seen some improvement of the patient to the point that she is on 15 minute checks. 3. Start tapering off Haldol on July 04 we lowered to 2 mg p.o. b.i.d. with a plan to discontinue in the next week. On July 05 we are keeping Haldol 2 mg p.o. q.h.s. over the weekend. D/C on 07/09. 4. Abilify Maintena 400 mg IM on July 04. We are lowering her Abilify PO to 10 mg po dialy and probably d/c next week. 5. Continue with Depakote 750 p.o. q.h.s. Reason for continued inpatient stay Substantial Risk for: inability to function, rapid decompensation and med/psych decompensation Time Spent With Patient Time: Total time managing care of this patient today __20__ minutes.
[2024-07-12 11:12] VITALS: BMI 23.6
--- NOTE | 2024-07-12 13:25 | HO.POSTANES ---
Post Anesthesia Evaluation Post Anesthesia Evaluation Date of Service: 07/11/24 Vital Signs: Vital Signs O2 Del Method 07/12/24 10:59 Room Air Mental Status: Awake Pain Control: Satisfactory Nausea/Vomiting: None Hydration: Adequate Anesthesia-Related Issues: No Anes. Related Issues
[2024-07-12 20:00] VITALS: BP 128/66; PULSE 70; RESP 16; TEMP 35.9; O2SAT 100
[2024-07-12] MEDS: Divalproex Sodium ER 250 MG TAB.ER.24H 750 MG PO (20:48)
[2024-07-12] MEDS: QUEtiapine Fumarate 200 MG TABLET PO (20:49)
[2024-07-12] MEDS: traZODone HCL 50 MG TABLET PO (20:49)
[2024-07-13] VITALS (11 sets, daily range): BP systolic 98–162; BP diastolic 54–81; PULSE 61–80; RESP 16–18; TEMP 36–36.8; O2SAT 91–99
--- NOTE | 2024-07-13 07:25 | MHC.SHP ---
Pre-Procedural Eval Section A - 24 Hr Update-Section A only Date of Service: 07/13/24 The patient is an INPATIENT: Yes Changes since office visit: Yes Changes in Medication; No Cold of Flu in the past 2 weeks, No New Medical Problems and No Patient answered all questions The patient has been examined within 24 hours of the surgical procedure. The History & Physical has been completed within 30 days and I have reviewed it.: Yes Section B - Complete if H&P > 30 days Chief Complaint: Psychosis Allergies: Allergies Allergy/AdvReac Type Severity Reaction Status Date / Time No Known Allergies Allergy Verified 05/04/24 15:04 Plan I have reviewed the history and physical and performed a pertinent physical examination on my patient. No changes have occurred unless specified. Time Spent With Patient Time: Total time managing care of this patient today ____ minutes.
--- NOTE | 2024-07-13 07:26 | HO.ECTPROC ---
ECT Procedure Note Diagnosis/Treatment Date of Service: 07/13/24 Diagnosis: Bipolar disorder Previous ECT Date: 07/11/24 Current Treatment Number: 6 Treatment: Series Interval Clinical Notes: Patient seen not overly manic somewhat flat cooperative able to answer questions has some confusion post ect last tx Time: Total time managing care of this patient today ____ minutes. ECT Settings Device: THYMATRON DGx Electrode Placement: Bitemporal Program/Pulse Width: 0.50 Energy Percent: 100 Seizure Duration By EEG (in seconds): 28 Medications Administration General Anesthetic: Etomidate (12) Muscle Relaxant: Succinylcholine (80) Ancillary Medications Anti-emetics: Zofran - Pre ECT Miscillaneous Medications: Propofol Airway Management Airway Management: Bag Mask Ventilation Treatment Recommendations Notes: pt with some flatness confusion would transition to rul vs extend length of time between tx ? taper pt not manic slowed mentation Pt Tolerated Procedure w/o Issue: Yes
--- NOTE | 2024-07-13 08:14 | HO.ANESPROP2 ---
[facility] Active Problems Active Problems: All Active Problems Dementia (Acute) Bipolar 1 disorder (Acute) Past Medical History Functional capacity: independent ambulation Patient : No Family History Family history of problems with anesthesia: No Surgical History History of Problems with Anesthesia: No Social History Social History Household Members: Children Housing: House Patient Tobacco Use Status: Never used Tobacco Smoked in Last 30 Days: No Use of substances other than those prescribed or required for medical reasons: No Currently Displaying Signs/Symptoms of Drug Intoxication Withdrawal: No Have you been hit, kicked, punched, or otherwise hurt by someone within the past year? If so, by whom?: No Do you feel safe in your current relationship?: No Current Relationship Is there a partner from a previous relationship who is making you feel unsafe now?: No Are you made to feel afraid or neglected: No Advance Directives: No Advance Directives Information Provided: No Do you have thoughts of harming others: None Do you have a plan to hurt others: No Plan Recently lost weight without trying: No Nutrition Risks: No Nutritional Risk Patient : No : No Sexual orientation: Straight/Heterosexual Meds Allergies Allergy/AdvReac Type Severity Reaction Status Date / Time No Known Allergies Allergy Verified 05/04/24 15:04 Active Medications: Current Medications Acetaminophen (Acetaminophen 325 Mg Tablet) 650 mg PO Q6H PRN PRN Reason: Headache/Pain Mild Scale (1-3) Last Admin: 07/04/24 10:04 Dose: 650 mg Al Hydroxide/Mg Hydroxide (Magnesium Hydrox/Alum Hydrox 30 Ml Oral.Susp) 30 ml PO Q6H PRN PRN Reason: Heartburn/Nausea Aripiprazole (Aripiprazole Er 400 Mg Suser.Syr) 400 mg IM Q30D [facility] Last Admin: 07/04/24 15:17 Dose: 400 mg Benztropine Mesylate (Benztropine Mesylate 0.5 Mg Tablet) 0.5 mg PO BID [facility] Last Admin: 07/12/24 20:49 Dose: 0.5 mg Bisacodyl (Bisacodyl 10 Mg Supp.Rect) 10 mg [place] DAILY PRN PRN Reason: Constipation Divalproex Sodium (Divalproex Sodium Er 250 Mg Tab.Er.24h) 750 mg PO BEDTIME [facility] Last Admin: 07/12/24 20:48 Dose: 750 mg Docusate Sodium (Docusate Sodium 100 Mg Capsule) 200 mg PO BID [facility] Last Admin: 07/12/24 20:48 Dose: 200 mg Famotidine (Famotidine 20 Mg Tablet) 20 mg PO DAILY [facility] Last Admin: 07/12/24 11:01 Dose: 20 mg Haloperidol (Haloperidol 5 Mg Tablet) 5 mg PO Q6H PRN PRN Reason: Psychosis Last Admin: 06/25/24 13:27 Dose: 5 mg Haloperidol Lactate (Haloperidol Lactate 5 Mg/Ml Vial) 5 mg IM TID PRN PRN Reason: Refusal antipsychotics Last Admin: 06/27/24 22:06 Dose: 5 mg Lisinopril (Lisinopril 2.5 Mg Tablet) 2.5 mg PO DAILY [facility]; Protocol Last Admin: 07/12/24 11:00 Dose: 2.5 mg Lorazepam (Lorazepam 1 Mg Tablet) 2 mg PO TID PRN PRN Reason: agitation Last Admin: 06/24/24 15:19 Dose: 2 mg Magnesium Hydroxide (Milk Of Magnesia 30 Ml Oral.Susp) 30 ml PO DAILY PRN PRN Reason: Constipation Last Admin: 07/07/24 09:25 Dose: 30 ml Naloxone HCl (Naloxone Hcl 0.4 Mg/Ml Vial) 0.04 mg IVPUSH Q5M PRN PRN Reason: Excessive sedation or RR < 8 Naloxone HCl (Naloxone Hcl 0.4 Mg/Ml Vial) 0.04 mg IVPUSH Q5M PRN PRN Reason: Excessive sedation or RR < 8 Ondansetron HCl (Ondansetron Odt 4 Mg Tab.Rapdis) 8 mg TRANSLINGU Q8H PRN PRN Reason: Nausea and Vomiting Last Admin: 05/26/24 11:02 Dose: 8 mg Polyethylene Glycol (Polyethylene Glycol 3350 17 Gm Powd.Pack) 17 gm PO DAILY PRN PRN Reason: constipation Last Admin: 05/15/24 17:41 Dose: 17 gm Quetiapine Fumarate (Quetiapine Fumarate 200 Mg Tablet) 200 mg PO BEDTIME [facility] Last Admin: 07/12/24 20:49 Dose: 200 mg Sodium Biphosphate/Sodium Phosphate (Sodium Phosphate,[place]-Dibasic 133 Ml Enema) 133 ml [place] ONCE PRN PRN Reason: severe constipation Last Admin: 05/13/24 18:19 Dose: 133 ml Trazodone HCl (Trazodone Hcl 50 Mg Tablet) 50 mg PO BEDTIME MRX1 PRN PRN Reason: Insomnia Last Admin: 07/12/24 20:49 Dose: 50 mg Home Medications ?Medication ?Instructions ?Recorded ?Confirmed ?Last Taken ?Type benztropine 0.5 mg tablet 0.5 mg PO BEDTIME 05/04/24 05/04/24 Unknown History divalproex 250 mg tablet,extended 250 mg PO BEDTIME 05/04/24 05/04/24 Unknown History release 24 hr lamotrigine 100 mg tablet 100 mg PO BEDTIME 05/04/24 05/04/24 Unknown History lisinopril 5 mg tablet 2.5 mg PO DAILY 05/04/24 05/04/24 Unknown History quetiapine 100 mg tablet 100 mg PO DAILY 05/04/24 05/04/24 Unknown History quetiapine 300 mg tablet 300 mg PO BEDTIME 05/04/24 05/04/24 Unknown History quetiapine 50 mg tablet 50 mg PO BID PRN Agitation 05/04/24 05/04/24 Unknown History Exam Height,Weight and Vital Signs: Height 5 ft Weight 54.794 kg Last Vital Signs Temp 97.4 F 07/13/24 07:48 Pulse 75 07/13/24 08:08 Resp 16 07/13/24 08:08 BP 122/67 07/13/24 08:08 Pulse Ox 98 07/13/24 08:08 O2 Del Method Room Air 07/13/24 08:08 O2 Flow Rate 2 07/13/24 08:03 Pertinent Lab Results Pertinent Lab Results: Laboratory Tests 05/04/24 05/05/24 05/05/24 15:03 12:44 13:08 WBC 4.9 RBC 4.49 Hgb 13.4 Hct 40.3 MCV 89.8 MCH 29.8 MCHC 33.3 RDW 13.4 Plt Count 215 MPV 9.1 L Immature Gran % (Auto) 0.2 Neut % (Auto) 51.7 Lymph % (Auto) 32.9 [place] % (Auto) 11.1 H Eos % (Auto) 3.5 Baso % (Auto) 0.6 Lymph # (Auto) 1.6 [place] # (Auto) 0.5 Eos # (Auto) 0.2 Baso # (Auto) 0.0 Abs Immat Gran (auto) 0.01 Absolute Neuts (auto) 2.5 Absolute Nucleated RBC 0.000 Nucleated RBC % (auto) 0.0 Hold Purple Top Sodium 141 Potassium 4.0 Chloride 102 Carbon Dioxide 31 H Anion Gap 12 BUN 19 H Creatinine 1.08 Estim Creat Clear Calc 37.5 Estimated GFR 50 Random Glucose 104 Fasting Glucose Calcium 9.4 Magnesium 2.3 Total Bilirubin 0.6 Direct Bilirubin AST 18 ALT 13 Alkaline Phosphatase 122 H Ammonia Total Protein 7.5 Albumin 4.2 Triglycerides Cholesterol LDL Cholesterol, Calc HDL Cholesterol TSH 1.25 Hold Yellow Top See Note Urine Color Urine Appearance Urine pH Ur Specific [place] Urine Protein Urine Glucose (UA) Urine Ketones Urine Blood Urine Nitrite Ur Leukocyte Esterase Urine RBC Urine WBC Ur Squamous Epith Cells Urine Bacteria Hyaline Casts Salicylates < 5.0 L Urine Opiates Screen Ur Buprenorphine Scrn Ur Oxycodone Screen Urine Methadone Screen Urine Fentanyl Screen Acetaminophen < 3 Ur Barbiturates Screen Valproic Acid < 12.5 L Ur Phencyclidine Scrn Ur Amphetamines Screen U Benzodiazepines Scrn Urine Cocaine Screen U Marijuana (THC) Screen Ethyl Alcohol < 10 05/05/24 05/09/24 05/16/24 13:16 08:10 20:12 WBC RBC Hgb Hct MCV MCH MCHC RDW Plt Count MPV Immature Gran % (Auto) Neut % (Auto) Lymph % (Auto) [place] % (Auto) Eos % (Auto) Baso % (Auto) Lymph # (Auto) [place] # (Auto) Eos # (Auto) Baso # (Auto) Abs Immat Gran (auto) Absolute Neuts (auto) Absolute Nucleated RBC Nucleated RBC % (auto) Hold Purple Top SEE NOTE Sodium 138 143 Potassium 3.8 4.1 Chloride 101 104 Carbon Dioxide 30 H 27 Anion Gap 11 L 16 BUN 27 H 26 H Creatinine 1.24 0.90 Estim Creat Clear Calc 32.6 44.6 Estimated GFR 43 > 60 Random Glucose 130 H Fasting Glucose 112 H Calcium 9.3 9.2 Magnesium Total Bilirubin 0.9 0.6 Direct Bilirubin 0.2 AST 18 15 ALT 12 10 Alkaline Phosphatase 100 96 Ammonia 25 Total Protein 7.3 6.7 Albumin 4.1 3.8 Triglycerides 61 Cholesterol 157 LDL Cholesterol, Calc 100 H HDL Cholesterol 45 TSH Hold Yellow Top Urine Color Yellow Urine Appearance Clear Urine pH 7.0 Ur Specific [place] 1.020 Urine Protein Negative Urine Glucose (UA) Negative Urine Ketones Negative Urine Blood Negative Urine Nitrite Negative Ur Leukocyte Esterase Moderate (2+) H Urine RBC 0-2 Urine WBC 0-5 Ur Squamous Epith Cells 0-2 Urine Bacteria None Seen Hyaline Casts 0-2 Salicylates Urine Opiates Screen Not Detected Ur Buprenorphine Scrn Not Detected Ur Oxycodone Screen Not Detected Urine Methadone Screen Not Detected Urine Fentanyl Screen Not Detected Acetaminophen Ur Barbiturates Screen Not Detected Valproic Acid 50.2 Ur Phencyclidine Scrn Not Detected Ur Amphetamines Screen Not Detected U Benzodiazepines Scrn Not Detected Urine Cocaine Screen Not Detected U Marijuana (THC) Screen Not Detected Ethyl Alcohol 05/21/24 05/22/24 05/24/24 08:09 08:03 18:05 WBC RBC Hgb Hct MCV MCH MCHC RDW Plt Count MPV Immature Gran % (Auto) Neut % (Auto) Lymph % (Auto) [place] % (Auto) Eos % (Auto) Baso % (Auto) Lymph # (Auto) [place] # (Auto) Eos # (Auto) Baso # (Auto) Abs Immat Gran (auto) Absolute Neuts (auto) Absolute Nucleated RBC Nucleated RBC % (auto) Hold Purple Top Sodium 143 Potassium 3.9 Chloride 105 Carbon Dioxide 29 Anion Gap 13 BUN 31 H Creatinine 1.11 Estim Creat Clear Calc 36.0 Estimated GFR 48 Random Glucose Fasting Glucose 81 Calcium 9.5 Magnesium Total Bilirubin 0.5 Direct Bilirubin AST 17 ALT 9 Alkaline Phosphatase 89 Ammonia 20 Total Protein 7.1 Albumin 4.1 Triglycerides Cholesterol LDL Cholesterol, Calc HDL Cholesterol TSH Hold Yellow Top Urine Color Urine Appearance Urine pH Ur Specific [place] Urine Protein Urine Glucose (UA) Urine Ketones Urine Blood Urine Nitrite Ur Leukocyte Esterase Urine RBC Urine WBC Ur Squamous Epith Cells Urine Bacteria Hyaline Casts Salicylates Urine Opiates Screen Ur Buprenorphine Scrn Ur Oxycodone Screen Urine Methadone Screen Urine Fentanyl Screen Acetaminophen Ur Barbiturates Screen Valproic Acid 142.5 H* 142.8 H* 113.4 H* Ur Phencyclidine Scrn Ur Amphetamines Screen U Benzodiazepines Scrn Urine Cocaine Screen U Marijuana (THC) Screen Ethyl Alcohol 05/27/24 05/30/24 07/12/24 10:04 09:29 07:54 WBC 5.0 RBC 3.93 L Hgb 11.9 L Hct 35.5 L MCV 90.3 MCH 30.3 MCHC 33.5 RDW 14.2 Plt Count 161 D MPV 10.1 Immature Gran % (Auto) 0.8 H Neut % (Auto) 46.9 Lymph % (Auto) 42.1 H [place] % (Auto) 8.4 Eos % (Auto) 1.2 Baso % (Auto) 0.6 Lymph # (Auto) 2.1 [place] # (Auto) 0.4 Eos # (Auto) 0.1 Baso # (Auto) 0.0 Abs Immat Gran (auto) 0.04 H Absolute Neuts (auto) 2.3 Absolute Nucleated RBC 0.000 Nucleated RBC % (auto) 0.0 Hold Purple Top Sodium 142 Potassium 3.6 Chloride 106 Carbon Dioxide 29 Anion Gap 11 L BUN 22 H Creatinine 0.88 Estim Creat Clear Calc 41.5 Estimated GFR > 60 Random Glucose 118 H Fasting Glucose Calcium 8.6 D Magnesium Total Bilirubin Direct Bilirubin AST ALT Alkaline Phosphatase Ammonia Total Protein Albumin Triglycerides Cholesterol LDL Cholesterol, Calc HDL Cholesterol TSH Hold Yellow Top Urine Color Urine Appearance Urine pH Ur Specific [place] Urine Protein Urine Glucose (UA) Urine Ketones Urine Blood Urine Nitrite Ur Leukocyte Esterase Urine RBC Urine WBC Ur Squamous Epith Cells Urine Bacteria Hyaline Casts Salicylates Urine Opiates Screen Ur Buprenorphine Scrn Ur Oxycodone Screen Urine Methadone Screen Urine Fentanyl Screen Acetaminophen Ur Barbiturates Screen Valproic Acid 116.9 H* 114.7 H* 65.8 Ur Phencyclidine Scrn Ur Amphetamines Screen U Benzodiazepines Scrn Urine Cocaine Screen U Marijuana (THC) Screen Ethyl Alcohol Airway Mallampati Class: II TM Dist: >3cm Neck ROM: Full Heart: RRR Lungs: CTA Assessment and Plan Assessment Anesthesia Assessment: Anesthesia Plan Discussed and Chart Reviewed Final Anesthetic Review Family History of Problems with Anesthesia: No History of Problems with Anesthesia: No NPO: Yes ASA Class: III Final Preanesthetic Review: Meds/Allgs Chart Reviewed, Consent Obtained/Reviewed and Anes Risks/Benef Reviewed Patient Risk: Low Procedure Risk: Low Anesthetic Plan Anesthetic Plan: GA Disposition: Standard PACU
--- NOTE | 2024-07-13 08:16 | HO.POSTANES ---
Post Anesthesia Evaluation Post Anesthesia Evaluation Date of Service: 07/13/24 Vital Signs: Vital Signs Temp Pulse Resp BP Pulse Ox O2 Del Method O2 Flow Rate 07/13/24 08:08 75 16 122/67 98 Room Air 07/13/24 08:03 78 16 122/67 98 Nasal Cannula with ETCO2 2 07/13/24 07:58 77 16 124/64 99 Nasal Cannula with ETCO2 2 07/13/24 07:53 75 16 132/81 97 Nasal Cannula with ETCO2 2 07/13/24 07:48 97.4 F 78 16 137/70 97 Nasal Cannula with ETCO2 2 07/13/24 06:43 97.5 F 65 16 98/61 98 Room Air 07/13/24 05:51 96.8 F 61 18 101/54 L 94 07/13/24 05:50 96.8 F 61 18 101/54 L 94 Room Air Anesthesia: General Mental Status: Awake Pain Control: Satisfactory Nausea/Vomiting: None Hydration: Adequate Anesthesia-Related Issues: No Anes. Related Issues
[2024-07-13] MEDS: Lactated Ringers 1,000 ML 100 ML IVCONT (08:26)
--- NOTE | 2024-07-13 08:43 | HO.PSYCHPN ---
Subjective Subjective Date of Service: 07/13/24 Reason For Visit: Psychosis Subjective Notes: Section 8 Interim History: Pt slept 8hrs. She had ECT this morning. BP slight elevated after procedure. She denies any headache. She reports doing well. She is having breakfast. no overt delusional content or psychosis. No behavioral concerns. Diagnostics Vital Signs (24Hr): Vital Signs - 24 hr 07/12/24 10:59 07/12/24 20:00 07/13/24 05:50 Temperature 96.6 F L 96.8 F Pulse Rate 70 61 Respiratory Rate 16 18 Blood Pressure 128/66 101/54 L Pulse Oximetry 100 94 Oxygen Delivery Method Room Air Room Air Room Air Oxygen Flow Rate 07/13/24 05:51 07/13/24 06:43 07/13/24 07:48 Temperature 96.8 F 97.5 F 97.4 F Pulse Rate 61 65 78 Respiratory Rate 18 16 16 Blood Pressure 101/54 L 98/61 137/70 Pulse Oximetry 94 98 97 Oxygen Delivery Method Room Air Nasal Cannula with ETCO2 Oxygen Flow Rate 2 07/13/24 07:53 07/13/24 07:58 07/13/24 08:03 Temperature Pulse Rate 75 77 78 Respiratory Rate 16 16 16 Blood Pressure 132/81 124/64 122/67 Pulse Oximetry 97 99 98 Oxygen Delivery Method Nasal Cannula with ETCO2 Nasal Cannula with ETCO2 Nasal Cannula with ETCO2 Oxygen Flow Rate 2 2 2 07/13/24 08:08 07/13/24 08:23 Temperature 97.2 F Pulse Rate 75 71 Respiratory Rate 16 16 Blood Pressure 122/67 125/63 Pulse Oximetry 98 98 Oxygen Delivery Method Room Air Room Air Oxygen Flow Rate BMI result Body Mass Index 23.6 Labs 07/12/24 07:54 07/12/24 07:54 Labs: Laboratory Results - last 48 hr 07/12/24 07:54 WBC 5.0 RBC 3.93 L Hgb 11.9 L Hct 35.5 L MCV 90.3 MCH 30.3 MCHC 33.5 RDW 14.2 Plt Count 161 D MPV 10.1 Immature Gran % (Auto) 0.8 H Neut % (Auto) 46.9 Lymph % (Auto) 42.1 H [place] % (Auto) 8.4 Eos % (Auto) 1.2 Baso % (Auto) 0.6 Lymph # (Auto) 2.1 [place] # (Auto) 0.4 Eos # (Auto) 0.1 Baso # (Auto) 0.0 Abs Immat Gran (auto) 0.04 H Absolute Neuts (auto) 2.3 Absolute Nucleated RBC 0.000 Nucleated RBC % (auto) 0.0 Sodium 142 Potassium 3.6 Chloride 106 Carbon Dioxide 29 Anion Gap 11 L BUN 22 H Creatinine 0.88 Estim Creat Clear Calc 41.5 Estimated GFR > 60 Random Glucose 118 H Calcium 8.6 D Valproic Acid 65.8 Imaging Radiology Impressions: ITS Impressions Head CT 05/16/24 14:30 IMPRESSION: There are no acute bleeds or territorial infarcts. No masses are demonstrated. Brain parenchymal attenuation is unremarkable. Medications Medications Current Medications Acetaminophen (Acetaminophen 325 Mg Tablet) 650 mg PO Q6H PRN PRN Reason: Headache/Pain Mild Scale (1-3) Last Admin: 07/04/24 10:04 Dose: 650 mg Al Hydroxide/Mg Hydroxide (Magnesium Hydrox/Alum Hydrox 30 Ml Oral.Susp) 30 ml PO Q6H PRN PRN Reason: Heartburn/Nausea Aripiprazole (Aripiprazole Er 400 Mg Suser.Syr) 400 mg IM Q30D [facility] Last Admin: 07/04/24 15:17 Dose: 400 mg Benztropine Mesylate (Benztropine Mesylate 0.5 Mg Tablet) 0.5 mg PO BID [facility] Last Admin: 07/12/24 20:49 Dose: 0.5 mg Bisacodyl (Bisacodyl 10 Mg Supp.Rect) 10 mg IN DAILY PRN PRN Reason: Constipation Divalproex Sodium (Divalproex Sodium Er 250 Mg Tab.Er.24h) 750 mg PO BEDTIME [facility] Last Admin: 07/12/24 20:48 Dose: 750 mg Docusate Sodium (Docusate Sodium 100 Mg Capsule) 200 mg PO BID [facility] Last Admin: 07/12/24 20:48 Dose: 200 mg Famotidine (Famotidine 20 Mg Tablet) 20 mg PO DAILY [facility] Last Admin: 07/12/24 11:01 Dose: 20 mg Haloperidol (Haloperidol 5 Mg Tablet) 5 mg PO Q6H PRN PRN Reason: Psychosis Last Admin: 06/25/24 13:27 Dose: 5 mg Haloperidol Lactate (Haloperidol Lactate 5 Mg/Ml Vial) 5 mg IM TID PRN PRN Reason: Refusal antipsychotics Last Admin: 06/27/24 22:06 Dose: 5 mg Lactated Ringer's (Lr) 1,000 mls @ 100 mls/hr IVCONT .Q10H [facility] Last Infusion: 07/13/24 08:27 Dose: Infused Lisinopril (Lisinopril 2.5 Mg Tablet) 2.5 mg PO DAILY [facility]; Protocol Last Admin: 07/12/24 11:00 Dose: 2.5 mg Lorazepam (Lorazepam 1 Mg Tablet) 2 mg PO TID PRN PRN Reason: agitation Last Admin: 06/24/24 15:19 Dose: 2 mg Magnesium Hydroxide (Milk Of Magnesia 30 Ml Oral.Susp) 30 ml PO DAILY PRN PRN Reason: Constipation Last Admin: 07/07/24 09:25 Dose: 30 ml Naloxone HCl (Naloxone Hcl 0.4 Mg/Ml Vial) 0.04 mg IVPUSH Q5M PRN PRN Reason: Excessive sedation or RR < 8 Naloxone HCl (Naloxone Hcl 0.4 Mg/Ml Vial) 0.04 mg IVPUSH Q5M PRN PRN Reason: Excessive sedation or RR < 8 Naloxone HCl (Naloxone Hcl 0.4 Mg/Ml Vial) 0.04 mg IVPUSH Q5M PRN PRN Reason: Excessive sedation or RR < 8 Ondansetron HCl (Ondansetron Odt 4 Mg Tab.Rapdis) 8 mg TRANSLINGU Q8H PRN PRN Reason: Nausea and Vomiting Last Admin: 05/26/24 11:02 Dose: 8 mg Polyethylene Glycol (Polyethylene Glycol 3350 17 Gm Powd.Pack) 17 gm PO DAILY PRN PRN Reason: constipation Last Admin: 05/15/24 17:41 Dose: 17 gm Quetiapine Fumarate (Quetiapine Fumarate 200 Mg Tablet) 200 mg PO BEDTIME [facility] Last Admin: 07/12/24 20:49 Dose: 200 mg Sodium Biphosphate/Sodium Phosphate (Sodium Phosphate,[place]-Dibasic 133 Ml Enema) 133 ml IN ONCE PRN PRN Reason: severe constipation Last Admin: 05/13/24 18:19 Dose: 133 ml Trazodone HCl (Trazodone Hcl 50 Mg Tablet) 50 mg PO BEDTIME MRX1 PRN PRN Reason: Insomnia Last Admin: 07/12/24 20:49 Dose: 50 mg Allergies Allergies Allergy/AdvReac Type Severity Reaction Status Date / Time No Known Allergies Allergy Verified 05/04/24 15:04 Assessment & Plan Assessment & Plan (1) Bipolar 1 disorder: Status: Acute Code(s): F31.9 - Bipolar disorder, unspecified Plan The patient is a 74-year-old female, from [facility], , mother of adult children with a past history of bipolar disorder who responded fairly well with ECT in the past. Historically, she had catatonia that responded very well with ECT. Currently she was admitted for increased psychosis, impulsive behavior and manic symptoms. We tried to give her Abilify Maintena 400 mg with limited results so we started ECT. Plan 07/13 continue tx. Reason for continued inpatient stay Substantial Risk for: inability to function Time Spent With Patient Time: Total time managing care of this patient today ____ minutes.
[2024-07-13] MEDS: lisinopriL 2.5 MG TABLET PO (10:06)
[2024-07-13] MEDS: Famotidine 20 MG TABLET PO (10:06)
[2024-07-13] MEDS: Docusate Sodium 100 MG CAPSULE 200 MG PO ×2 (10:06→21:03)
[2024-07-13] MEDS: Benztropine Mesylate 0.5 MG TABLET PO ×2 (10:06→21:02)
[2024-07-13] MEDS: Divalproex Sodium ER 250 MG TAB.ER.24H 750 MG PO (21:03)
[2024-07-13] MEDS: traZODone HCL 50 MG TABLET PO (21:04)
[2024-07-13] MEDS: QUEtiapine Fumarate 200 MG TABLET PO (21:04)
[2024-07-13] MEDS: Milk of Magnesia 30 ML ORAL.SUSP PO (21:10)
--- NOTE | 2024-07-14 09:24 | P.PNPSI_ITS ---
Subjective Subjective Date of Service: 07/14/24 Reason For Visit: Psychosis Subjective Notes: Section 8 Interim History: Pt slept 8hrs. She is pleasant on approach. No behavioral concerns. No SI/HI. She is visible on the unit, no overt delusional content noted or reported. She is taking medications as prescribed. somewhat confused at times asking same questions to nursing, but overall much improved. Review of Systems Review of Systems Yes all other systems are reviewed and are negative (denies, reports feeling well ) Mental Status Exam Mental Status Exam Patient Appearance: Well Grooomed Patient Orientation: Person and Situation Level of Consciousness: Awake and Appropriate Patient Behavior: Guarded and Passive Mood Description: Withdrawn Affect Description: Constricted Patient Cognition Impaired: Yes Ability to Follow Directions: Good Speech Pattern: Clear Memory Description: Remote Impaired Diagnostics Vital Signs (24Hr): Vital Signs - 24 hr 07/13/24 10:04 07/13/24 20:00 Temperature 97.9 F 98.3 F Pulse Rate 70 80 Respiratory Rate 18 16 Blood Pressure 162/75 H 128/60 Pulse Oximetry 98 91 L Oxygen Delivery Method Room Air Room Air BMI result Body Mass Index 23.6 Labs 07/12/24 07:54 07/12/24 07:54 Imaging Radiology Impressions: ITS Impressions Head CT 05/16/24 14:30 IMPRESSION: There are no acute bleeds or territorial infarcts. No masses are demonstrated. Brain parenchymal attenuation is unremarkable. Medications Medications Current Medications Acetaminophen (Acetaminophen 325 Mg Tablet) 650 mg PO Q6H PRN PRN Reason: Headache/Pain Mild Scale (1-3) Last Admin: 07/04/24 10:04 Dose: 650 mg Al Hydroxide/Mg Hydroxide (Magnesium Hydrox/Alum Hydrox 30 Ml Oral.Susp) 30 ml PO Q6H PRN PRN Reason: Heartburn/Nausea Aripiprazole (Aripiprazole Er 400 Mg Suser.Syr) 400 mg IM Q30D ON LICENSE OF [facility] Last Admin: 07/04/24 15:17 Dose: 400 mg Benztropine Mesylate (Benztropine Mesylate 0.5 Mg Tablet) 0.5 mg PO BID ON LICENSE OF [facility] Last Admin: 07/13/24 21:02 Dose: 0.5 mg Bisacodyl (Bisacodyl 10 Mg Supp.Rect) 10 mg [place] DAILY PRN PRN Reason: Constipation Divalproex Sodium (Divalproex Sodium Er 250 Mg Tab.Er.24h) 750 mg PO BEDTIME [facility] Last Admin: 07/13/24 21:03 Dose: 750 mg Docusate Sodium (Docusate Sodium 100 Mg Capsule) 200 mg PO BID [facility] OF [facility] Last Admin: 07/13/24 21:03 Dose: 200 mg Famotidine (Famotidine 20 Mg Tablet) 20 mg PO DAILY [facility] Last Admin: 07/13/24 10:06 Dose: 20 mg Haloperidol (Haloperidol 5 Mg Tablet) 5 mg PO Q6H PRN PRN Reason: Psychosis Last Admin: 06/25/24 13:27 Dose: 5 mg Haloperidol Lactate (Haloperidol Lactate 5 Mg/Ml Vial) 5 mg IM TID PRN PRN Reason: Refusal antipsychotics Last Admin: 06/27/24 22:06 Dose: 5 mg Lisinopril (Lisinopril 2.5 Mg Tablet) 2.5 mg PO DAILY [facility] OF [facility]; Protocol Last Admin: 07/13/24 10:06 Dose: 2.5 mg Lorazepam (Lorazepam 1 Mg Tablet) 2 mg PO TID PRN PRN Reason: agitation Last Admin: 06/24/24 15:19 Dose: 2 mg Magnesium Hydroxide (Milk Of Magnesia 30 Ml Oral.Susp) 30 ml PO DAILY PRN PRN Reason: Constipation Last Admin: 07/13/24 21:10 Dose: 30 ml Naloxone HCl (Naloxone Hcl 0.4 Mg/Ml Vial) 0.04 mg IVPUSH Q5M PRN PRN Reason: Excessive sedation or RR < 8 Naloxone HCl (Naloxone Hcl 0.4 Mg/Ml Vial) 0.04 mg IVPUSH Q5M PRN PRN Reason: Excessive sedation or RR < 8 Naloxone HCl (Naloxone Hcl 0.4 Mg/Ml Vial) 0.04 mg IVPUSH Q5M PRN PRN Reason: Excessive sedation or RR < 8 Ondansetron HCl (Ondansetron Odt 4 Mg Tab.Rapdis) 8 mg TRANSLINGU Q8H PRN PRN Reason: Nausea and Vomiting Last Admin: 05/26/24 11:02 Dose: 8 mg Polyethylene Glycol (Polyethylene Glycol 3350 17 Gm Powd.Pack) 17 gm PO DAILY PRN PRN Reason: constipation Last Admin: 05/15/24 17:41 Dose: 17 gm Quetiapine Fumarate (Quetiapine Fumarate 200 Mg Tablet) 200 mg PO BEDTIME ON LICENSE OF [facility] Last Admin: 07/13/24 21:04 Dose: 200 mg Sodium Biphosphate/Sodium Phosphate (Sodium Phosphate,[place]-Dibasic 133 Ml Enema) 133 ml [place] ONCE PRN PRN Reason: severe constipation Last Admin: 05/13/24 18:19 Dose: 133 ml Trazodone HCl (Trazodone Hcl 50 Mg Tablet) 50 mg PO BEDTIME MRX1 PRN PRN Reason: Insomnia Last Admin: 07/13/24 21:04 Dose: 50 mg Allergies Allergies Allergy/AdvReac Type Severity Reaction Status Date / Time No Known Allergies Allergy Verified 05/04/24 15:04 Assessment & Plan Assessment & Plan (1) Bipolar 1 disorder: Status: Acute Code(s): F31.9 - Bipolar disorder, unspecified Plan The patient is a 74-year-old female, from [facility], , mother of adult children with a past history of bipolar disorder who responded fairly well with ECT in the past. Historically, she had catatonia that responded very well with ECT. Currently she was admitted for increased psychosis, impulsive behavior and manic symptoms. We tried to give her Abilify Maintena 400 mg with limited results so we started ECT. Plan 07/13 continue tx. 07/14 continue tx. Reason for continued inpatient stay Substantial Risk for: inability to function Time Spent With Patient Time: Total time managing care of this patient today ____ minutes.
[2024-07-14 10:33] VITALS: BP 118/66; PULSE 74; RESP 18; TEMP 36.6; O2SAT 97
[2024-07-14] MEDS: Benztropine Mesylate 0.5 MG TABLET PO ×2 (10:36→19:56)
[2024-07-14] MEDS: lisinopriL 2.5 MG TABLET PO (10:36)
[2024-07-14] MEDS: Docusate Sodium 100 MG CAPSULE 200 MG PO ×2 (10:36→19:54)
[2024-07-14] MEDS: Famotidine 20 MG TABLET PO (10:37)
[2024-07-14] MEDS: traZODone HCL 50 MG TABLET PO (19:55)
[2024-07-14] MEDS: QUEtiapine Fumarate 200 MG TABLET PO (19:55)
[2024-07-14] MEDS: Divalproex Sodium ER 250 MG TAB.ER.24H 750 MG PO (19:56)
[2024-07-14 20:00] VITALS: BP 116/56; PULSE 66; RESP 16; TEMP 36.6; O2SAT 99
[2024-07-15 08:50] VITALS: BP 126/82; PULSE 70; RESP 18; TEMP 36.5; O2SAT 100
[2024-07-15] MEDS: lisinopriL 2.5 MG TABLET PO (08:50)
[2024-07-15] MEDS: Benztropine Mesylate 0.5 MG TABLET PO ×2 (08:50→21:25)
[2024-07-15] MEDS: Docusate Sodium 100 MG CAPSULE 200 MG PO ×2 (08:50→21:26)
[2024-07-15] MEDS: Famotidine 20 MG TABLET PO (08:50)
--- NOTE | 2024-07-15 11:29 | P.PNPSI_ITS ---
Subjective Subjective Date of Service: 07/15/24 Reason For Visit: Psychosis Interim History: Pt slept 8hrs. She is pleasant on approach. No behavioral concerns. No SI/HI. She is visible on the unit, no overt delusional content noted or reported. She is taking medications as prescribed. somewhat confused at times asking same questions to nursing, but overall much improved. Review of Systems Review of Systems Yes all other systems are reviewed and are negative (denies, reports feeling well ) Mental Status Exam Mental Status Exam Patient Appearance: Well Grooomed Patient Orientation: Person and Situation Level of Consciousness: Awake and Appropriate Patient Behavior: Guarded and Passive Mood Description: Withdrawn Affect Description: Constricted Patient Cognition Impaired: Yes Ability to Follow Directions: Good Speech Pattern: Clear Memory Description: Remote Impaired Diagnostics Vital Signs (24Hr): Vital Signs - 24 hr 07/14/24 20:00 07/15/24 08:50 07/15/24 08:50 Temperature 97.8 F 97.7 F Pulse Rate 66 70 Respiratory Rate 16 18 Blood Pressure 116/56 L 126/82 126/82 Pulse Oximetry 99 100 Oxygen Delivery Method Room Air Room Air BMI result Body Mass Index 23.6 Labs 07/12/24 07:54 07/12/24 07:54 Imaging Radiology Impressions: ITS Impressions Head CT 05/16/24 14:30 IMPRESSION: There are no acute bleeds or territorial infarcts. No masses are demonstrated. Brain parenchymal attenuation is unremarkable. Medications Medications Current Medications Acetaminophen (Acetaminophen 325 Mg Tablet) 650 mg PO Q6H PRN PRN Reason: Headache/Pain Mild Scale (1-3) Last Admin: 07/04/24 10:04 Dose: 650 mg Al Hydroxide/Mg Hydroxide (Magnesium Hydrox/Alum Hydrox 30 Ml Oral.Susp) 30 ml PO Q6H PRN PRN Reason: Heartburn/Nausea Aripiprazole (Aripiprazole Er 400 Mg Suser.Syr) 400 mg IM Q30D [facility] Last Admin: 07/04/24 15:17 Dose: 400 mg Benztropine Mesylate (Benztropine Mesylate 0.5 Mg Tablet) 0.5 mg PO BID [facility] Last Admin: 07/15/24 08:50 Dose: 0.5 mg Bisacodyl (Bisacodyl 10 Mg Supp.Rect) 10 mg [place] DAILY PRN PRN Reason: Constipation Divalproex Sodium (Divalproex Sodium Er 250 Mg Tab.Er.24h) 750 mg PO BEDTIME [facility] Last Admin: 07/14/24 19:56 Dose: 750 mg Docusate Sodium (Docusate Sodium 100 Mg Capsule) 200 mg PO BID [facility] Last Admin: 07/15/24 08:50 Dose: 200 mg Famotidine (Famotidine 20 Mg Tablet) 20 mg PO DAILY [facility] Last Admin: 07/15/24 08:50 Dose: 20 mg Haloperidol (Haloperidol 5 Mg Tablet) 5 mg PO Q6H PRN PRN Reason: Psychosis Last Admin: 06/25/24 13:27 Dose: 5 mg Haloperidol Lactate (Haloperidol Lactate 5 Mg/Ml Vial) 5 mg IM TID PRN PRN Reason: Refusal antipsychotics Last Admin: 06/27/24 22:06 Dose: 5 mg Lisinopril (Lisinopril 2.5 Mg Tablet) 2.5 mg PO DAILY [facility]; Protocol Last Admin: 07/15/24 08:50 Dose: 2.5 mg Lorazepam (Lorazepam 1 Mg Tablet) 2 mg PO TID PRN PRN Reason: agitation Last Admin: 06/24/24 15:19 Dose: 2 mg Magnesium Hydroxide (Milk Of Magnesia 30 Ml Oral.Susp) 30 ml PO DAILY PRN PRN Reason: Constipation Last Admin: 07/13/24 21:10 Dose: 30 ml Naloxone HCl (Naloxone Hcl 0.4 Mg/Ml Vial) 0.04 mg IVPUSH Q5M PRN PRN Reason: Excessive sedation or RR < 8 Ondansetron HCl (Ondansetron Odt 4 Mg Tab.Rapdis) 8 mg TRANSLINGU Q8H PRN PRN Reason: Nausea and Vomiting Last Admin: 05/26/24 11:02 Dose: 8 mg Polyethylene Glycol (Polyethylene Glycol 3350 17 Gm Powd.Pack) 17 gm PO DAILY PRN PRN Reason: constipation Last Admin: 05/15/24 17:41 Dose: 17 gm Quetiapine Fumarate (Quetiapine Fumarate 200 Mg Tablet) 200 mg PO BEDTIME [facility] Last Admin: 07/14/24 19:55 Dose: 200 mg Sodium Biphosphate/Sodium Phosphate (Sodium Phosphate,Brown-Dibasic 133 Ml Enema) 133 ml [place] ONCE PRN PRN Reason: severe constipation Last Admin: 05/13/24 18:19 Dose: 133 ml Trazodone HCl (Trazodone Hcl 50 Mg Tablet) 50 mg PO BEDTIME MRX1 PRN PRN Reason: Insomnia Last Admin: 07/14/24 19:55 Dose: 50 mg Allergies Allergies Allergy/AdvReac Type Severity Reaction Status Date / Time No Known Allergies Allergy Verified 05/04/24 15:04 Assessment & Plan Assessment & Plan (1) Bipolar 1 disorder: Status: Acute Code(s): F31.9 - Bipolar disorder, unspecified Plan The patient is a 74-year-old female, from [facility], , mother of adult children with a past history of bipolar disorder who responded fairly well with ECT in the past. Historically, she had catatonia that responded very well with ECT. Currently she was admitted for increased psychosis, impulsive behavior and manic symptoms. We tried to give her Abilify Maintena 400 mg with limited results so we started ECT. Plan 07/13 continue tx. 07/14 continue tx. 07/15 continue tx. Reason for continued inpatient stay Substantial Risk for: inability to function Time Spent With Patient Time: Total time managing care of this patient today ____ minutes.
[2024-07-15] MEDS: Lactulose 20 GM/30 ML SOLUTION PO (12:51)
[2024-07-15 20:00] VITALS: BP 122/52; PULSE 60; RESP 18; TEMP 36.4; O2SAT 97
[2024-07-15] MEDS: Divalproex Sodium ER 250 MG TAB.ER.24H 750 MG PO (21:24)
[2024-07-15] MEDS: QUEtiapine Fumarate 200 MG TABLET PO (21:25)
[2024-07-15] MEDS: traZODone HCL 50 MG TABLET PO (21:27)
[2024-07-16] VITALS (10 sets, daily range): BP systolic 102–187; BP diastolic 58–73; PULSE 69–80; RESP 15–16; TEMP 36.1–36.7; O2SAT 95–98
--- NOTE | 2024-07-16 07:05 | MHC.SHP ---
Pre-Procedural Eval Section A - 24 Hr Update-Section A only Date of Service: 07/16/24 The patient is an INPATIENT: Yes Changes since office visit: No Cold of Flu in the past 2 weeks, No New Medical Problems, No Changes in Medication and No Patient answered all questions The patient has been examined within 24 hours of the surgical procedure. The History & Physical has been completed within 30 days and I have reviewed it.: Yes Section B - Complete if H&P > 30 days Chief Complaint: Psychosis Allergies: Allergies Allergy/AdvReac Type Severity Reaction Status Date / Time No Known Allergies Allergy Verified 05/04/24 15:04 Plan I have reviewed the history and physical and performed a pertinent physical examination on my patient. No changes have occurred unless specified. Time Spent With Patient Time: Total time managing care of this patient today ____ minutes.
[2024-07-16] MEDS: Lactated Ringers 1,000 ML 50 ML IVCONT (07:13)
--- NOTE | 2024-07-16 07:31 | P.CONAN_ITS ---
[facility] Active Problems Active Problems: All Active Problems Dementia (Acute) Bipolar 1 disorder (Acute) Past Medical History Functional capacity: independent ambulation Family History Family history of problems with anesthesia: No Surgical History History of Problems with Anesthesia: No Social History Social History Household Members: Children Housing: House Patient Tobacco Use Status: Never used Tobacco Smoked in Last 30 Days: No Use of substances other than those prescribed or required for medical reasons: No Currently Displaying Signs/Symptoms of Drug Intoxication Withdrawal: No Have you been hit, kicked, punched, or otherwise hurt by someone within the past year? If so, by whom?: No Do you feel safe in your current relationship?: No Current Relationship Is there a partner from a previous relationship who is making you feel unsafe now?: No Are you made to feel afraid or neglected: No Advance Directives: No Advance Directives Information Provided: No Do you have thoughts of harming others: None Do you have a plan to hurt others: No Plan Recently lost weight without trying: No Nutrition Risks: No Nutritional Risk Patient : No : No Sexual orientation: Straight/Heterosexual Meds Allergies Allergy/AdvReac Type Severity Reaction Status Date / Time No Known Allergies Allergy Verified 05/04/24 15:04 Active Medications: Current Medications Acetaminophen (Acetaminophen 325 Mg Tablet) 650 mg PO Q6H PRN PRN Reason: Headache/Pain Mild Scale (1-3) Last Admin: 07/04/24 10:04 Dose: 650 mg Acetaminophen (Acetaminophen 325 Mg Tablet) 650 mg PO ONCE PRN PRN Reason: Pain, Mild (Pain Scale 1-3) Stop: 07/16/24 13:09 Al Hydroxide/Mg Hydroxide (Magnesium Hydrox/Alum Hydrox 30 Ml Oral.Susp) 30 ml PO Q6H PRN PRN Reason: Heartburn/Nausea Aripiprazole (Aripiprazole Er 400 Mg Suser.Syr) 400 mg IM Q30D [facility] Last Admin: 07/04/24 15:17 Dose: 400 mg Benztropine Mesylate (Benztropine Mesylate 0.5 Mg Tablet) 0.5 mg PO BID [facility] Last Admin: 07/15/24 21:25 Dose: 0.5 mg Bisacodyl (Bisacodyl 10 Mg Supp.Rect) 10 mg [place] DAILY PRN PRN Reason: Constipation Divalproex Sodium (Divalproex Sodium Er 250 Mg Tab.Er.24h) 750 mg PO BEDTIME [facility] Last Admin: 07/15/24 21:24 Dose: 750 mg Docusate Sodium (Docusate Sodium 100 Mg Capsule) 200 mg PO BID [facility] Last Admin: 07/15/24 21:26 Dose: 200 mg Famotidine (Famotidine 20 Mg Tablet) 20 mg PO DAILY [facility] Last Admin: 07/15/24 08:50 Dose: 20 mg Haloperidol (Haloperidol 5 Mg Tablet) 5 mg PO Q6H PRN PRN Reason: Psychosis Last Admin: 06/25/24 13:27 Dose: 5 mg Haloperidol Lactate (Haloperidol Lactate 5 Mg/Ml Vial) 5 mg IM TID PRN PRN Reason: Refusal antipsychotics Last Admin: 06/27/24 22:06 Dose: 5 mg Lactated Ringer's (Lr) 1,000 mls @ 50 mls/hr IVCONT .Q20H [facility] Last Admin: 07/16/24 07:13 Dose: 50 mls/hr Lisinopril (Lisinopril 2.5 Mg Tablet) 2.5 mg PO DAILY [facility]; Protocol Last Admin: 07/15/24 08:50 Dose: 2.5 mg Lorazepam (Lorazepam 1 Mg Tablet) 2 mg PO TID PRN PRN Reason: agitation Last Admin: 06/24/24 15:19 Dose: 2 mg Magnesium Hydroxide (Milk Of Magnesia 30 Ml Oral.Susp) 30 ml PO DAILY PRN PRN Reason: Constipation Last Admin: 07/13/24 21:10 Dose: 30 ml Naloxone HCl (Naloxone Hcl 0.4 Mg/Ml Vial) 0.04 mg IVPUSH Q5M PRN PRN Reason: Excessive sedation or RR < 8 Ondansetron HCl (Ondansetron Odt 4 Mg Tab.Rapdis) 8 mg TRANSLINGU Q8H PRN PRN Reason: Nausea and Vomiting Last Admin: 05/26/24 11:02 Dose: 8 mg Ondansetron HCl (Ondansetron Hcl 4 Mg/2 Ml Vial) 4 mg IVPUSH ONCE PRN PRN Reason: Nausea and Vomiting Stop: 07/16/24 13:09 Polyethylene Glycol (Polyethylene Glycol 3350 17 Gm Powd.Pack) 17 gm PO DAILY PRN PRN Reason: constipation Last Admin: 05/15/24 17:41 Dose: 17 gm Quetiapine Fumarate (Quetiapine Fumarate 200 Mg Tablet) 200 mg PO BEDTIME [facility] Last Admin: 07/15/24 21:25 Dose: 200 mg Sodium Biphosphate/Sodium Phosphate (Sodium Phosphate,[place]-Dibasic 133 Ml Enema) 133 ml [place] ONCE PRN PRN Reason: severe constipation Last Admin: 05/13/24 18:19 Dose: 133 ml Trazodone HCl (Trazodone Hcl 50 Mg Tablet) 50 mg PO BEDTIME MRX1 PRN PRN Reason: Insomnia Last Admin: 07/15/24 21:27 Dose: 50 mg Home Medications ?Medication ?Instructions ?Recorded ?Confirmed ?Last Taken ?Type benztropine 0.5 mg tablet 0.5 mg PO BEDTIME 05/04/24 05/04/24 Unknown History divalproex 250 mg tablet,extended 250 mg PO BEDTIME 05/04/24 05/04/24 Unknown History release 24 hr lamotrigine 100 mg tablet 100 mg PO BEDTIME 05/04/24 05/04/24 Unknown History lisinopril 5 mg tablet 2.5 mg PO DAILY 05/04/24 05/04/24 Unknown History quetiapine 100 mg tablet 100 mg PO DAILY 05/04/24 05/04/24 Unknown History quetiapine 300 mg tablet 300 mg PO BEDTIME 05/04/24 05/04/24 Unknown History quetiapine 50 mg tablet 50 mg PO BID PRN Agitation 05/04/24 05/04/24 Unknown History Exam Height,Weight and Vital Signs: Height 5 ft Weight 54.794 kg Last Vital Signs Temp 97.9 F 07/16/24 06:19 Pulse 70 07/16/24 06:19 Resp 16 07/16/24 06:19 BP 113/63 07/16/24 06:19 Pulse Ox 97 07/16/24 06:19 O2 Del Method Room Air 07/16/24 06:19 O2 Flow Rate 2 07/13/24 08:03 Pertinent Lab Results Pertinent Lab Results: Laboratory Tests 05/04/24 05/05/24 05/05/24 15:03 12:44 13:08 WBC 4.9 RBC 4.49 Hgb 13.4 Hct 40.3 MCV 89.8 MCH 29.8 MCHC 33.3 RDW 13.4 Plt Count 215 MPV 9.1 L Immature Gran % (Auto) 0.2 Neut % (Auto) 51.7 Lymph % (Auto) 32.9 Sierra % (Auto) 11.1 H Eos % (Auto) 3.5 Baso % (Auto) 0.6 Lymph # (Auto) 1.6 Sierra # (Auto) 0.5 Eos # (Auto) 0.2 Baso # (Auto) 0.0 Abs Immat Gran (auto) 0.01 Absolute Neuts (auto) 2.5 Absolute Nucleated RBC 0.000 Nucleated RBC % (auto) 0.0 Hold Purple Top Sodium 141 Potassium 4.0 Chloride 102 Carbon Dioxide 31 H Anion Gap 12 BUN 19 H Creatinine 1.08 Estim Creat Clear Calc 37.5 Estimated GFR 50 Random Glucose 104 Fasting Glucose Calcium 9.4 Magnesium 2.3 Total Bilirubin 0.6 Direct Bilirubin AST 18 ALT 13 Alkaline Phosphatase 122 H Ammonia Total Protein 7.5 Albumin 4.2 Triglycerides Cholesterol LDL Cholesterol, Calc HDL Cholesterol TSH 1.25 Hold Yellow Top See Note Urine Color Urine Appearance Urine pH Ur Specific [place] Urine Protein Urine Glucose (UA) Urine Ketones Urine Blood Urine Nitrite Ur Leukocyte Esterase Urine RBC Urine WBC Ur Squamous Epith Cells Urine Bacteria Hyaline Casts Salicylates < 5.0 L Urine Opiates Screen Ur Buprenorphine Scrn Ur Oxycodone Screen Urine Methadone Screen Urine Fentanyl Screen Acetaminophen < 3 Ur Barbiturates Screen Valproic Acid < 12.5 L Ur Phencyclidine Scrn Ur Amphetamines Screen U Benzodiazepines Scrn Urine Cocaine Screen U Marijuana (THC) Screen Ethyl Alcohol < 10 05/05/24 05/09/24 05/16/24 13:16 08:10 20:12 WBC RBC Hgb Hct MCV MCH MCHC RDW Plt Count MPV Immature Gran % (Auto) Neut % (Auto) Lymph % (Auto) Sierra % (Auto) Eos % (Auto) Baso % (Auto) Lymph # (Auto) Sierra # (Auto) Eos # (Auto) Baso # (Auto) Abs Immat Gran (auto) Absolute Neuts (auto) Absolute Nucleated RBC Nucleated RBC % (auto) Hold Purple Top SEE NOTE Sodium 138 143 Potassium 3.8 4.1 Chloride 101 104 Carbon Dioxide 30 H 27 Anion Gap 11 L 16 BUN 27 H 26 H Creatinine 1.24 0.90 Estim Creat Clear Calc 32.6 44.6 Estimated GFR 43 > 60 Random Glucose 130 H Fasting Glucose 112 H Calcium 9.3 9.2 Magnesium Total Bilirubin 0.9 0.6 Direct Bilirubin 0.2 AST 18 15 ALT 12 10 Alkaline Phosphatase 100 96 Ammonia 25 Total Protein 7.3 6.7 Albumin 4.1 3.8 Triglycerides 61 Cholesterol 157 LDL Cholesterol, Calc 100 H HDL Cholesterol 45 TSH Hold Yellow Top Urine Color Yellow Urine Appearance Clear Urine pH 7.0 Ur Specific [place] 1.020 Urine Protein Negative Urine Glucose (UA) Negative Urine Ketones Negative Urine Blood Negative Urine Nitrite Negative Ur Leukocyte Esterase Moderate (2+) H Urine RBC 0-2 Urine WBC 0-5 Ur Squamous Epith Cells 0-2 Urine Bacteria None Seen Hyaline Casts 0-2 Salicylates Urine Opiates Screen Not Detected Ur Buprenorphine Scrn Not Detected Ur Oxycodone Screen Not Detected Urine Methadone Screen Not Detected Urine Fentanyl Screen Not Detected Acetaminophen Ur Barbiturates Screen Not Detected Valproic Acid 50.2 Ur Phencyclidine Scrn Not Detected Ur Amphetamines Screen Not Detected U Benzodiazepines Scrn Not Detected Urine Cocaine Screen Not Detected U Marijuana (THC) Screen Not Detected Ethyl Alcohol 05/21/24 05/22/24 05/24/24 08:09 08:03 18:05 WBC RBC Hgb Hct MCV MCH MCHC RDW Plt Count MPV Immature Gran % (Auto) Neut % (Auto) Lymph % (Auto) Sierra % (Auto) Eos % (Auto) Baso % (Auto) Lymph # (Auto) Sierra # (Auto) Eos # (Auto) Baso # (Auto) Abs Immat Gran (auto) Absolute Neuts (auto) Absolute Nucleated RBC Nucleated RBC % (auto) Hold Purple Top Sodium 143 Potassium 3.9 Chloride 105 Carbon Dioxide 29 Anion Gap 13 BUN 31 H Creatinine 1.11 Estim Creat Clear Calc 36.0 Estimated GFR 48 Random Glucose Fasting Glucose 81 Calcium 9.5 Magnesium Total Bilirubin 0.5 Direct Bilirubin AST 17 ALT 9 Alkaline Phosphatase 89 Ammonia 20 Total Protein 7.1 Albumin 4.1 Triglycerides Cholesterol LDL Cholesterol, Calc HDL Cholesterol TSH Hold Yellow Top Urine Color Urine Appearance Urine pH Ur Specific [place] Urine Protein Urine Glucose (UA) Urine Ketones Urine Blood Urine Nitrite Ur Leukocyte Esterase Urine RBC Urine WBC Ur Squamous Epith Cells Urine Bacteria Hyaline Casts Salicylates Urine Opiates Screen Ur Buprenorphine Scrn Ur Oxycodone Screen Urine Methadone Screen Urine Fentanyl Screen Acetaminophen Ur Barbiturates Screen Valproic Acid 142.5 H* 142.8 H* 113.4 H* Ur Phencyclidine Scrn Ur Amphetamines Screen U Benzodiazepines Scrn Urine Cocaine Screen U Marijuana (THC) Screen Ethyl Alcohol 05/27/24 05/30/24 07/12/24 10:04 09:29 07:54 WBC 5.0 RBC 3.93 L Hgb 11.9 L Hct 35.5 L MCV 90.3 MCH 30.3 MCHC 33.5 RDW 14.2 Plt Count 161 D MPV 10.1 Immature Gran % (Auto) 0.8 H Neut % (Auto) 46.9 Lymph % (Auto) 42.1 H Sierra % (Auto) 8.4 Eos % (Auto) 1.2 Baso % (Auto) 0.6 Lymph # (Auto) 2.1 [place] # (Auto) 0.4 Eos # (Auto) 0.1 Baso # (Auto) 0.0 Abs Immat Gran (auto) 0.04 H Absolute Neuts (auto) 2.3 Absolute Nucleated RBC 0.000 Nucleated RBC % (auto) 0.0 Hold Purple Top Sodium 142 Potassium 3.6 Chloride 106 Carbon Dioxide 29 Anion Gap 11 L BUN 22 H Creatinine 0.88 Estim Creat Clear Calc 41.5 Estimated GFR > 60 Random Glucose 118 H Fasting Glucose Calcium 8.6 D Magnesium Total Bilirubin Direct Bilirubin AST ALT Alkaline Phosphatase Ammonia Total Protein Albumin Triglycerides Cholesterol LDL Cholesterol, Calc HDL Cholesterol TSH Hold Yellow Top Urine Color Urine Appearance Urine pH Ur Specific [place] Urine Protein Urine Glucose (UA) Urine Ketones Urine Blood Urine Nitrite Ur Leukocyte Esterase Urine RBC Urine WBC Ur Squamous Epith Cells Urine Bacteria Hyaline Casts Salicylates Urine Opiates Screen Ur Buprenorphine Scrn Ur Oxycodone Screen Urine Methadone Screen Urine Fentanyl Screen Acetaminophen Ur Barbiturates Screen Valproic Acid 116.9 H* 114.7 H* 65.8 Ur Phencyclidine Scrn Ur Amphetamines Screen U Benzodiazepines Scrn Urine Cocaine Screen U Marijuana (THC) Screen Ethyl Alcohol Airway Mallampati Class: II TM Dist: >3cm Neck ROM: Full Loose/Missing/Broken Teeth: Yes (No teeth top. Only few bottom ) Heart: RRR Lungs: CTAB Assessment and Plan Assessment Anesthesia Assessment: Anesthesia Plan Discussed and Chart Reviewed Final Anesthetic Review Family History of Problems with Anesthesia: No History of Problems with Anesthesia: No NPO: Yes ASA Class: III Final Preanesthetic Review: No Changes in Pt Med Stat, Meds/Allgs Chart Reviewed, Consent Obtained/Reviewed and Anes Risks/Benef Reviewed Patient Risk: Intermediate Procedure Risk: Intermediate Anesthetic Plan Anesthetic Plan: GA Disposition: Standard PACU and Inp. Admit - Standard Bed
--- NOTE | 2024-07-16 07:39 | HO.ECTPROC ---
ECT Procedure Note Diagnosis/Treatment Date of Service: 07/16/24 Diagnosis: Bipolar disorder Previous ECT Date: 07/13/24 Current Treatment Number: 7 Treatment: Series Interval Clinical Notes: The patient has improved remarkably, she is alert, priented, no dysphoria, denies side effects with previous ECT. The staff has noticed that she is more confused after ECT so I decided to change to right unilateral placement. ECT done with right unilateral. No complications, woke up well, Propofol used as per last ECT recommendation. Woke up well. Time: Total time managing care of this patient today ____ minutes. ECT Settings Device: THYMATRON DGx Electrode Placement: Right Unilateral Program/Pulse Width: 0.50 Energy Percent: 100 Seizure Duration By EEG (in seconds): 41 By Motor Observation (in seconds): 0 Medications Administration General Anesthetic: Etomidate (12) Muscle Relaxant: Succinylcholine (80) Ancillary Medications Anti-emetics: Zofran - Pre ECT Miscillaneous Medications: Propofol Airway Management Airway Management: Bag Mask Ventilation Treatment Recommendations No Changes Recommended: No change Notes: Keep on right unilateral 0.5 at 100% Pt Tolerated Procedure w/o Issue: Yes
[2024-07-16] MEDS: lisinopriL 2.5 MG TABLET PO (08:54)
[2024-07-16] MEDS: Benztropine Mesylate 0.5 MG TABLET PO ×2 (08:54→20:31)
[2024-07-16] MEDS: Docusate Sodium 100 MG CAPSULE 200 MG PO ×2 (08:54→20:31)
[2024-07-16] MEDS: Famotidine 20 MG TABLET PO (08:54)
--- NOTE | 2024-07-16 11:34 | HO.PSYCHPN ---
Subjective Subjective Date of Service: 07/16/24 Reason For Visit: Psychosis Subjective Notes: Conditional Voluntary Healthcare Proxy: Yes Interim History: The nursing staff reported the patient slept 8 hours, she had been pleasant cooperative confused at times. On interview the patient denies new symptoms she reports that she is slightly tired after ECT today. Mental Status Exam Mental Status Exam Patient Appearance: Well Grooomed Patient Orientation: Person and Situation Level of Consciousness: Awake Patient Behavior: Guarded and Passive Mood Description: Withdrawn Affect Description: Constricted Patient Cognition Impaired: Yes Ability to Follow Directions: Good Speech Pattern: Clear Hallucinations: None Delusions: Not Present Thought Process: Distracted and Slowed Thinking Thought Content: positive for [place] and positive for Poverty of Content Judgement: Fair Diagnostics Vital Signs (24Hr): Vital Signs - 24 hr 07/15/24 20:00 07/16/24 05:35 07/16/24 06:19 Temperature 97.6 F 97 F 97.9 F Pulse Rate 60 80 70 Respiratory Rate 18 16 16 Blood Pressure 122/52 L 102/64 113/63 Pulse Oximetry 97 97 97 Oxygen Delivery Method Room Air Room Air Oxygen Flow Rate 07/16/24 07:44 07/16/24 07:49 07/16/24 07:54 Temperature 97 F Pulse Rate 74 75 77 Respiratory Rate 16 16 16 Blood Pressure 187/65 H 157/73 H 134/71 Pulse Oximetry 96 95 95 Oxygen Delivery Method Nasal Cannula with ETCO2 Nasal Cannula with ETCO2 Nasal Cannula with ETCO2 Oxygen Flow Rate 2 2 2 07/16/24 07:59 07/16/24 08:14 07/16/24 08:29 Temperature 97.5 F Pulse Rate 76 75 74 Respiratory Rate 16 16 16 Blood Pressure 136/73 119/67 133/67 Pulse Oximetry 97 97 98 Oxygen Delivery Method Nasal Cannula with ETCO2 Nasal Cannula with ETCO2 Room Air Oxygen Flow Rate 2 2 07/16/24 08:53 Temperature 98.1 F Pulse Rate 69 Respiratory Rate 15 Blood Pressure 148/73 H Pulse Oximetry 98 Oxygen Delivery Method Room Air Oxygen Flow Rate BMI result Body Mass Index 23.6 Labs 07/12/24 07:54 07/12/24 07:54 Imaging Radiology Impressions: ITS Impressions Head CT 05/16/24 14:30 IMPRESSION: There are no acute bleeds or territorial infarcts. No masses are demonstrated. Brain parenchymal attenuation is unremarkable. Medications Medications Current Medications Acetaminophen (Acetaminophen 325 Mg Tablet) 650 mg PO Q6H PRN PRN Reason: Headache/Pain Mild Scale (1-3) Last Admin: 07/04/24 10:04 Dose: 650 mg Acetaminophen (Acetaminophen 325 Mg Tablet) 650 mg PO ONCE PRN PRN Reason: Pain, Mild (Pain Scale 1-3) Stop: 07/16/24 13:09 Al Hydroxide/Mg Hydroxide (Magnesium Hydrox/Alum Hydrox 30 Ml Oral.Susp) 30 ml PO Q6H PRN PRN Reason: Heartburn/Nausea Aripiprazole (Aripiprazole Er 400 Mg Suser.Syr) 400 mg IM Q30D [facility] Last Admin: 07/04/24 15:17 Dose: 400 mg Benztropine Mesylate (Benztropine Mesylate 0.5 Mg Tablet) 0.5 mg PO BID [facility] Last Admin: 07/16/24 08:54 Dose: 0.5 mg Bisacodyl (Bisacodyl 10 Mg Supp.Rect) 10 mg [place] DAILY PRN PRN Reason: Constipation Divalproex Sodium (Divalproex Sodium Er 250 Mg Tab.Er.24h) 750 mg PO BEDTIME [facility] Last Admin: 07/15/24 21:24 Dose: 750 mg Docusate Sodium (Docusate Sodium 100 Mg Capsule) 200 mg PO BID [facility] Last Admin: 07/16/24 08:54 Dose: 200 mg Famotidine (Famotidine 20 Mg Tablet) 20 mg PO DAILY [facility] Last Admin: 07/16/24 08:54 Dose: 20 mg Haloperidol (Haloperidol 5 Mg Tablet) 5 mg PO Q6H PRN PRN Reason: Psychosis Last Admin: 06/25/24 13:27 Dose: 5 mg Haloperidol Lactate (Haloperidol Lactate 5 Mg/Ml Vial) 5 mg IM TID PRN PRN Reason: Refusal antipsychotics Last Admin: 06/27/24 22:06 Dose: 5 mg Lisinopril (Lisinopril 2.5 Mg Tablet) 2.5 mg PO DAILY [facility]; Protocol Last Admin: 07/16/24 08:54 Dose: 2.5 mg Lorazepam (Lorazepam 1 Mg Tablet) 2 mg PO TID PRN PRN Reason: agitation Last Admin: 06/24/24 15:19 Dose: 2 mg Magnesium Hydroxide (Milk Of Magnesia 30 Ml Oral.Susp) 30 ml PO DAILY PRN PRN Reason: Constipation Last Admin: 07/13/24 21:10 Dose: 30 ml Naloxone HCl (Naloxone Hcl 0.4 Mg/Ml Vial) 0.04 mg IVPUSH Q5M PRN PRN Reason: Excessive sedation or RR < 8 Ondansetron HCl (Ondansetron Odt 4 Mg Tab.Rapdis) 8 mg TRANSLINGU Q8H PRN PRN Reason: Nausea and Vomiting Last Admin: 05/26/24 11:02 Dose: 8 mg Ondansetron HCl (Ondansetron Hcl 4 Mg/2 Ml Vial) 4 mg IVPUSH ONCE PRN PRN Reason: Nausea and Vomiting Stop: 07/16/24 13:09 Polyethylene Glycol (Polyethylene Glycol 3350 17 Gm Powd.Pack) 17 gm PO DAILY PRN PRN Reason: constipation Last Admin: 05/15/24 17:41 Dose: 17 gm Quetiapine Fumarate (Quetiapine Fumarate 200 Mg Tablet) 200 mg PO BEDTIME [facility] Last Admin: 07/15/24 21:25 Dose: 200 mg Sodium Biphosphate/Sodium Phosphate (Sodium Phosphate,[place]-Dibasic 133 Ml Enema) 133 ml [place] ONCE PRN PRN Reason: severe constipation Last Admin: 05/13/24 18:19 Dose: 133 ml Trazodone HCl (Trazodone Hcl 50 Mg Tablet) 50 mg PO BEDTIME MRX1 PRN PRN Reason: Insomnia Last Admin: 07/15/24 21:27 Dose: 50 mg Allergies Allergies Allergy/AdvReac Type Severity Reaction Status Date / Time No Known Allergies Allergy Verified 05/04/24 15:04 Assessment & Plan Assessment & Plan (1) Bipolar 1 disorder: Status: Acute Code(s): F31.9 - Bipolar disorder, unspecified Plan The patient is a 74-year-old female, from [facility], , mother of adult children with a past history of bipolar disorder who responded fairly well with ECT in the past. Historically, she had catatonia that responded very well with ECT. Currently she was admitted for increased psychosis, impulsive behavior and manic symptoms. We tried to give her Abilify Maintena 400 mg with limited results so we started ECT. Plan 1. Continue with Abilify Maintena 400 mg IM monthly. 2. Continue with Depakote 750 p.o. daily. 3. Continue with ECT. 4. Start working for disposition. Reason for continued inpatient stay Substantial Risk for: inability to function, rapid decompensation and med/psych decompensation Time Spent With Patient Time: Total time managing care of this patient today __20__ minutes.
[2024-07-16] MEDS: Divalproex Sodium ER 250 MG TAB.ER.24H 750 MG PO (20:30)
[2024-07-16] MEDS: traZODone HCL 50 MG TABLET PO (20:31)
[2024-07-16] MEDS: QUEtiapine Fumarate 200 MG TABLET PO (20:31)
[2024-07-17 09:32] VITALS: BP 95/55; PULSE 62; RESP 16; TEMP 36.9; O2SAT 96
[2024-07-17] MEDS: Famotidine 20 MG TABLET PO (09:34)
[2024-07-17] MEDS: Docusate Sodium 100 MG CAPSULE 200 MG PO ×2 (09:34→20:18)
[2024-07-17] MEDS: lisinopriL 2.5 MG TABLET PO (09:34)
[2024-07-17] MEDS: Benztropine Mesylate 0.5 MG TABLET PO ×2 (09:35→20:20)
--- NOTE | 2024-07-17 11:39 | HO.POSTANES ---
Post Anesthesia Evaluation Post Anesthesia Evaluation Date of Service: 07/17/24 Vital Signs: Vital Signs Temp Pulse Resp BP Pulse Ox O2 Del Method 07/17/24 09:32 98.4 F 62 16 95/55 L 96 Room Air Anesthesia: General Mental Status: Awake Pain Control: Satisfactory Nausea/Vomiting: None Hydration: Adequate Anesthesia-Related Issues: No Anes. Related Issues
--- NOTE | 2024-07-17 12:30 | HO.PSYCHPN ---
Subjective Subjective Date of Service: 07/17/24 Reason For Visit: Psychosis Subjective Notes: Conditional Voluntary Interim History: The nursing staff reported the patient had been less confused after the last ECT. We change the derivation to right unilateral. She slept 6 hours. The social media strategist has referred to [facility], waiting for response. On interview the patient denies new symptoms, waiting for placement Mental Status Exam Mental Status Exam Patient Appearance: Well Grooomed and Appropriate Patient Orientation: Person and Situation Level of Consciousness: Awake and Appropriate Patient Behavior: Appropriate and Cooperative Mood Description: Calm Affect Description: Constricted Patient Cognition Impaired: Yes Ability to Follow Directions: Good Speech Pattern: Clear Hallucinations: None Delusions: Not Present Thought Process: Distracted and Slowed Thinking Thought Content: positive for [place] and positive for Poverty of Content Judgement: Fair Diagnostics Vital Signs (24Hr): Vital Signs - 24 hr 07/16/24 20:00 07/17/24 09:32 Temperature 97.8 F 98.4 F Pulse Rate 75 62 Respiratory Rate 16 16 Blood Pressure 106/58 L 95/55 L Pulse Oximetry 98 96 Oxygen Delivery Method Room Air Room Air BMI result Body Mass Index 23.6 Labs 07/12/24 07:54 07/12/24 07:54 Imaging Radiology Impressions: ITS Impressions Head CT 05/16/24 14:30 IMPRESSION: There are no acute bleeds or territorial infarcts. No masses are demonstrated. Brain parenchymal attenuation is unremarkable. Medications Medications Current Medications Acetaminophen (Acetaminophen 325 Mg Tablet) 650 mg PO Q6H PRN PRN Reason: Headache/Pain Mild Scale (1-3) Last Admin: 07/04/24 10:04 Dose: 650 mg Al Hydroxide/Mg Hydroxide (Magnesium Hydrox/Alum Hydrox 30 Ml Oral.Susp) 30 ml PO Q6H PRN PRN Reason: Heartburn/Nausea Aripiprazole (Aripiprazole Er 400 Mg Suser.Syr) 400 mg IM Q30D [facility] Last Admin: 07/04/24 15:17 Dose: 400 mg Benztropine Mesylate (Benztropine Mesylate 0.5 Mg Tablet) 0.5 mg PO BID [facility] Last Admin: 07/17/24 09:35 Dose: 0.5 mg Bisacodyl (Bisacodyl 10 Mg Supp.Rect) 10 mg [place] DAILY PRN PRN Reason: Constipation Divalproex Sodium (Divalproex Sodium Er 250 Mg Tab.Er.24h) 750 mg PO BEDTIME [facility] Last Admin: 07/16/24 20:30 Dose: 750 mg Docusate Sodium (Docusate Sodium 100 Mg Capsule) 200 mg PO BID [facility] Last Admin: 07/17/24 09:34 Dose: 200 mg Famotidine (Famotidine 20 Mg Tablet) 20 mg PO DAILY [facility] Last Admin: 07/17/24 09:34 Dose: 20 mg Haloperidol (Haloperidol 5 Mg Tablet) 5 mg PO Q6H PRN PRN Reason: Psychosis Last Admin: 06/25/24 13:27 Dose: 5 mg Haloperidol Lactate (Haloperidol Lactate 5 Mg/Ml Vial) 5 mg IM TID PRN PRN Reason: Refusal antipsychotics Last Admin: 06/27/24 22:06 Dose: 5 mg Lisinopril (Lisinopril 2.5 Mg Tablet) 2.5 mg PO DAILY [facility]; Protocol Last Admin: 07/17/24 09:34 Dose: 2.5 mg Lorazepam (Lorazepam 1 Mg Tablet) 2 mg PO TID PRN PRN Reason: agitation Last Admin: 06/24/24 15:19 Dose: 2 mg Magnesium Hydroxide (Milk Of Magnesia 30 Ml Oral.Susp) 30 ml PO DAILY PRN PRN Reason: Constipation Last Admin: 07/13/24 21:10 Dose: 30 ml Naloxone HCl (Naloxone Hcl 0.4 Mg/Ml Vial) 0.04 mg IVPUSH Q5M PRN PRN Reason: Excessive sedation or RR < 8 Ondansetron HCl (Ondansetron Odt 4 Mg Tab.Rapdis) 8 mg TRANSLINGU Q8H PRN PRN Reason: Nausea and Vomiting Last Admin: 05/26/24 11:02 Dose: 8 mg Polyethylene Glycol (Polyethylene Glycol 3350 17 Gm Powd.Pack) 17 gm PO DAILY PRN PRN Reason: constipation Last Admin: 05/15/24 17:41 Dose: 17 gm Quetiapine Fumarate (Quetiapine Fumarate 200 Mg Tablet) 200 mg PO BEDTIME [facility] Last Admin: 07/16/24 20:31 Dose: 200 mg Sodium Biphosphate/Sodium Phosphate (Sodium Phosphate,[place]-Dibasic 133 Ml Enema) 133 ml [place] ONCE PRN PRN Reason: severe constipation Last Admin: 05/13/24 18:19 Dose: 133 ml Trazodone HCl (Trazodone Hcl 50 Mg Tablet) 50 mg PO BEDTIME MRX1 PRN PRN Reason: Insomnia Last Admin: 07/16/24 20:31 Dose: 50 mg Allergies Allergies Allergy/AdvReac Type Severity Reaction Status Date / Time No Known Allergies Allergy Verified 05/04/24 15:04 Assessment & Plan Assessment & Plan (1) Bipolar 1 disorder: Status: Acute Code(s): F31.9 - Bipolar disorder, unspecified Plan The patient is a 74-year-old female, from [facility], , mother of adult children with a past history of bipolar disorder who responded fairly well with ECT in the past. Historically, she had catatonia that responded very well with ECT. Currently she was admitted for increased psychosis, impulsive behavior and manic symptoms. We tried to give her Abilify Maintena 400 mg with limited results so we started ECT. Plan 1. Continue with Abilify Maintena 400 mg IM monthly. 2. Continue with Depakote 750 p.o. daily. 3. Continue with ECT. 4. Start working for disposition. Reason for continued inpatient stay Substantial Risk for: inability to function, rapid decompensation and med/psych decompensation Time Spent With Patient Time: Total time managing care of this patient today __20__ minutes.
[2024-07-17 20:00] VITALS: BP 129/69; PULSE 70; RESP 16; TEMP 36.4; O2SAT 97
[2024-07-17] MEDS: Divalproex Sodium ER 250 MG TAB.ER.24H 750 MG PO (20:19)
[2024-07-17] MEDS: QUEtiapine Fumarate 200 MG TABLET PO (20:20)
[2024-07-18] VITALS (9 sets, daily range): BP systolic 96–154; BP diastolic 51–71; PULSE 62–79; RESP 15–96; TEMP 36–36.8; O2SAT 95–99
--- NOTE | 2024-07-18 07:26 | MHC.SHP ---
Pre-Procedural Eval Section A - 24 Hr Update-Section A only Date of Service: 07/18/24 The patient is an INPATIENT: Yes Changes since office visit: Yes Patient answered all questions; No Cold of Flu in the past 2 weeks, No New Medical Problems and No Changes in Medication The patient has been examined within 24 hours of the surgical procedure. The History & Physical has been completed within 30 days and I have reviewed it.: Yes Section B - Complete if H&P > 30 days Chief Complaint: Psychosis Allergies: Allergies Allergy/AdvReac Type Severity Reaction Status Date / Time No Known Allergies Allergy Verified 05/04/24 15:04 Plan I have reviewed the history and physical and performed a pertinent physical examination on my patient. No changes have occurred unless specified. Time Spent With Patient Time: Total time managing care of this patient today ____ minutes.
--- NOTE | 2024-07-18 07:33 | HO.ECTPROC ---
ECT Procedure Note Diagnosis/Treatment Date of Service: 07/18/24 Diagnosis: Bipolar disorder Previous ECT Date: 07/13/24 Current Treatment Number: 8 Treatment: Series Interval Clinical Notes: The patient has improved remarkably, she is alert, priented, no dysphoria, denies side effects with previous ECT. The staff has noticed that she is more confused after ECT so I decided to change to right unilateral placement. ECT done with right unilateral. No complications, woke up well, Propofol used as per last ECT recommendation. Woke up well. Time: Total time managing care of this patient today ____ minutes. ECT Settings Device: THYMATRON DGx Electrode Placement: Right Unilateral Program/Pulse Width: 0.50 Energy Percent: 100 Seizure Duration By EEG (in seconds): 38 Medications Administration General Anesthetic: Etomidate (12) Muscle Relaxant: Succinylcholine (80) Ancillary Medications Anti-emetics: Zofran - Pre ECT Miscillaneous Medications: Propofol Airway Management Airway Management: Bag Mask Ventilation Treatment Recommendations No Changes Recommended: No change Electrode Placement: Right Unilateral Program/Pulse Width: 0.50 Energy Percent: 100 Notes: Keep on right unilateral 0.5 at 100% Pt Tolerated Procedure w/o Issue: Yes
--- NOTE | 2024-07-18 07:43 | P.CONAN_ITS ---
HPI - Anesthesia Eval Consult details Narrative: for ECT PMFSH Active Problems Active Problems: All Active Problems Dementia (Acute) Bipolar 1 disorder (Acute) Past Medical History Functional capacity: independent ambulation Family History Family history of problems with anesthesia: No Surgical History History of Problems with Anesthesia: No Social History Social History Household Members: Children Housing: House Patient Tobacco Use Status: Never used Tobacco Smoked in Last 30 Days: No Use of substances other than those prescribed or required for medical reasons: No Currently Displaying Signs/Symptoms of Drug Intoxication Withdrawal: No Have you been hit, kicked, punched, or otherwise hurt by someone within the past year? If so, by whom?: No Do you feel safe in your current relationship?: No Current Relationship Is there a partner from a previous relationship who is making you feel unsafe now?: No Are you made to feel afraid or neglected: No Advance Directives: No Advance Directives Information Provided: No Do you have thoughts of harming others: None Do you have a plan to hurt others: No Plan Recently lost weight without trying: No Nutrition Risks: No Nutritional Risk Patient : No : No Sexual orientation: Straight/Heterosexual Meds Allergies Allergy/AdvReac Type Severity Reaction Status Date / Time No Known Allergies Allergy Verified 05/04/24 15:04 Active Medications: Current Medications Acetaminophen (Acetaminophen 325 Mg Tablet) 650 mg PO Q6H PRN PRN Reason: Headache/Pain Mild Scale (1-3) Last Admin: 07/04/24 10:04 Dose: 650 mg Al Hydroxide/Mg Hydroxide (Magnesium Hydrox/Alum Hydrox 30 Ml Oral.Susp) 30 ml PO Q6H PRN PRN Reason: Heartburn/Nausea Aripiprazole (Aripiprazole Er 400 Mg Suser.Syr) 400 mg IM Q30D [facility] Last Admin: 07/04/24 15:17 Dose: 400 mg Benztropine Mesylate (Benztropine Mesylate 0.5 Mg Tablet) 0.5 mg PO BID [facility] Last Admin: 07/17/24 20:20 Dose: 0.5 mg Bisacodyl (Bisacodyl 10 Mg Supp.Rect) 10 mg IN DAILY PRN PRN Reason: Constipation Divalproex Sodium (Divalproex Sodium Er 250 Mg Tab.Er.24h) 750 mg PO BEDTIME [facility] Last Admin: 07/17/24 20:19 Dose: 750 mg Docusate Sodium (Docusate Sodium 100 Mg Capsule) 200 mg PO BID [facility] Last Admin: 07/17/24 20:18 Dose: 200 mg Famotidine (Famotidine 20 Mg Tablet) 20 mg PO DAILY [facility] Last Admin: 07/17/24 09:34 Dose: 20 mg Haloperidol (Haloperidol 5 Mg Tablet) 5 mg PO Q6H PRN PRN Reason: Psychosis Last Admin: 06/25/24 13:27 Dose: 5 mg Haloperidol Lactate (Haloperidol Lactate 5 Mg/Ml Vial) 5 mg IM TID PRN PRN Reason: Refusal antipsychotics Last Admin: 06/27/24 22:06 Dose: 5 mg Lisinopril (Lisinopril 2.5 Mg Tablet) 2.5 mg PO DAILY [facility]; Protocol Last Admin: 07/17/24 09:34 Dose: 2.5 mg Lorazepam (Lorazepam 1 Mg Tablet) 2 mg PO TID PRN PRN Reason: agitation Last Admin: 06/24/24 15:19 Dose: 2 mg Magnesium Hydroxide (Milk Of Magnesia 30 Ml Oral.Susp) 30 ml PO DAILY PRN PRN Reason: Constipation Last Admin: 07/13/24 21:10 Dose: 30 ml Naloxone HCl (Naloxone Hcl 0.4 Mg/Ml Vial) 0.04 mg IVPUSH Q5M PRN PRN Reason: Excessive sedation or RR < 8 Ondansetron HCl (Ondansetron Odt 4 Mg Tab.Rapdis) 8 mg TRANSLINGU Q8H PRN PRN Reason: Nausea and Vomiting Last Admin: 05/26/24 11:02 Dose: 8 mg Polyethylene Glycol (Polyethylene Glycol 3350 17 Gm Powd.Pack) 17 gm PO DAILY PRN PRN Reason: constipation Last Admin: 05/15/24 17:41 Dose: 17 gm Quetiapine Fumarate (Quetiapine Fumarate 200 Mg Tablet) 200 mg PO BEDTIME [facility] Last Admin: 07/17/24 20:20 Dose: 200 mg Sodium Biphosphate/Sodium Phosphate (Sodium Phosphate,[place]-Dibasic 133 Ml Enema) 133 ml IN ONCE PRN PRN Reason: severe constipation Last Admin: 05/13/24 18:19 Dose: 133 ml Trazodone HCl (Trazodone Hcl 50 Mg Tablet) 50 mg PO BEDTIME MRX1 PRN PRN Reason: Insomnia Last Admin: 07/16/24 20:31 Dose: 50 mg Home Medications ?Medication ?Instructions ?Recorded ?Confirmed ?Last Taken ?Type benztropine 0.5 mg tablet 0.5 mg PO BEDTIME 05/04/24 05/04/24 Unknown History divalproex 250 mg tablet,extended 250 mg PO BEDTIME 05/04/24 05/04/24 Unknown History release 24 hr lamotrigine 100 mg tablet 100 mg PO BEDTIME 05/04/24 05/04/24 Unknown History lisinopril 5 mg tablet 2.5 mg PO DAILY 05/04/24 05/04/24 Unknown History quetiapine 100 mg tablet 100 mg PO DAILY 05/04/24 05/04/24 Unknown History quetiapine 300 mg tablet 300 mg PO BEDTIME 05/04/24 05/04/24 Unknown History quetiapine 50 mg tablet 50 mg PO BID PRN Agitation 05/04/24 05/04/24 Unknown History Exam Height,Weight and Vital Signs: Height 5 ft Weight 54.794 kg Last Vital Signs Temp 97.2 F 07/18/24 06:39 Pulse 62 07/18/24 06:39 Resp 16 07/18/24 06:39 BP 103/59 L 07/18/24 06:39 Pulse Ox 97 07/18/24 06:39 O2 Del Method Room Air 07/18/24 06:39 O2 Flow Rate 2 07/16/24 08:14 Pertinent Lab Results Pertinent Lab Results: Laboratory Tests 05/04/24 05/05/24 05/05/24 15:03 12:44 13:08 WBC 4.9 RBC 4.49 Hgb 13.4 Hct 40.3 MCV 89.8 MCH 29.8 MCHC 33.3 RDW 13.4 Plt Count 215 MPV 9.1 L Immature Gran % (Auto) 0.2 Neut % (Auto) 51.7 Lymph % (Auto) 32.9 [place] % (Auto) 11.1 H Eos % (Auto) 3.5 Baso % (Auto) 0.6 Lymph # (Auto) 1.6 [place] # (Auto) 0.5 Eos # (Auto) 0.2 Baso # (Auto) 0.0 Abs Immat Gran (auto) 0.01 Absolute Neuts (auto) 2.5 Absolute Nucleated RBC 0.000 Nucleated RBC % (auto) 0.0 Hold Purple Top Sodium 141 Potassium 4.0 Chloride 102 Carbon Dioxide 31 H Anion Gap 12 BUN 19 H Creatinine 1.08 Estim Creat Clear Calc 37.5 Estimated GFR 50 Random Glucose 104 Fasting Glucose Calcium 9.4 Magnesium 2.3 Total Bilirubin 0.6 Direct Bilirubin AST 18 ALT 13 Alkaline Phosphatase 122 H Ammonia Total Protein 7.5 Albumin 4.2 Triglycerides Cholesterol LDL Cholesterol, Calc HDL Cholesterol TSH 1.25 Hold Yellow Top See Note Urine Color Urine Appearance Urine pH Ur Specific [place] Urine Protein Urine Glucose (UA) Urine Ketones Urine Blood Urine Nitrite Ur Leukocyte Esterase Urine RBC Urine WBC Ur Squamous Epith Cells Urine Bacteria Hyaline Casts Salicylates < 5.0 L Urine Opiates Screen Ur Buprenorphine Scrn Ur Oxycodone Screen Urine Methadone Screen Urine Fentanyl Screen Acetaminophen < 3 Ur Barbiturates Screen Valproic Acid < 12.5 L Ur Phencyclidine Scrn Ur Amphetamines Screen U Benzodiazepines Scrn Urine Cocaine Screen U Marijuana (THC) Screen Ethyl Alcohol < 10 05/05/24 05/09/24 05/16/24 13:16 08:10 20:12 WBC RBC Hgb Hct MCV MCH MCHC RDW Plt Count MPV Immature Gran % (Auto) Neut % (Auto) Lymph % (Auto) [place] % (Auto) Eos % (Auto) Baso % (Auto) Lymph # (Auto) [place] # (Auto) Eos # (Auto) Baso # (Auto) Abs Immat Gran (auto) Absolute Neuts (auto) Absolute Nucleated RBC Nucleated RBC % (auto) Hold Purple Top SEE NOTE Sodium 138 143 Potassium 3.8 4.1 Chloride 101 104 Carbon Dioxide 30 H 27 Anion Gap 11 L 16 BUN 27 H 26 H Creatinine 1.24 0.90 Estim Creat Clear Calc 32.6 44.6 Estimated GFR 43 > 60 Random Glucose 130 H Fasting Glucose 112 H Calcium 9.3 9.2 Magnesium Total Bilirubin 0.9 0.6 Direct Bilirubin 0.2 AST 18 15 ALT 12 10 Alkaline Phosphatase 100 96 Ammonia 25 Total Protein 7.3 6.7 Albumin 4.1 3.8 Triglycerides 61 Cholesterol 157 LDL Cholesterol, Calc 100 H HDL Cholesterol 45 TSH Hold Yellow Top Urine Color Yellow Urine Appearance Clear Urine pH 7.0 Ur Specific [place] 1.020 Urine Protein Negative Urine Glucose (UA) Negative Urine Ketones Negative Urine Blood Negative Urine Nitrite Negative Ur Leukocyte Esterase Moderate (2+) H Urine RBC 0-2 Urine WBC 0-5 Ur Squamous Epith Cells 0-2 Urine Bacteria None Seen Hyaline Casts 0-2 Salicylates Urine Opiates Screen Not Detected Ur Buprenorphine Scrn Not Detected Ur Oxycodone Screen Not Detected Urine Methadone Screen Not Detected Urine Fentanyl Screen Not Detected Acetaminophen Ur Barbiturates Screen Not Detected Valproic Acid 50.2 Ur Phencyclidine Scrn Not Detected Ur Amphetamines Screen Not Detected U Benzodiazepines Scrn Not Detected Urine Cocaine Screen Not Detected U Marijuana (THC) Screen Not Detected Ethyl Alcohol 05/21/24 05/22/24 05/24/24 08:09 08:03 18:05 WBC RBC Hgb Hct MCV MCH MCHC RDW Plt Count MPV Immature Gran % (Auto) Neut % (Auto) Lymph % (Auto) [place] % (Auto) Eos % (Auto) Baso % (Auto) Lymph # (Auto) [place] # (Auto) Eos # (Auto) Baso # (Auto) Abs Immat Gran (auto) Absolute Neuts (auto) Absolute Nucleated RBC Nucleated RBC % (auto) Hold Purple Top Sodium 143 Potassium 3.9 Chloride 105 Carbon Dioxide 29 Anion Gap 13 BUN 31 H Creatinine 1.11 Estim Creat Clear Calc 36.0 Estimated GFR 48 Random Glucose Fasting Glucose 81 Calcium 9.5 Magnesium Total Bilirubin 0.5 Direct Bilirubin AST 17 ALT 9 Alkaline Phosphatase 89 Ammonia 20 Total Protein 7.1 Albumin 4.1 Triglycerides Cholesterol LDL Cholesterol, Calc HDL Cholesterol TSH Hold Yellow Top Urine Color Urine Appearance Urine pH Ur Specific [place] Urine Protein Urine Glucose (UA) Urine Ketones Urine Blood Urine Nitrite Ur Leukocyte Esterase Urine RBC Urine WBC Ur Squamous Epith Cells Urine Bacteria Hyaline Casts Salicylates Urine Opiates Screen Ur Buprenorphine Scrn Ur Oxycodone Screen Urine Methadone Screen Urine Fentanyl Screen Acetaminophen Ur Barbiturates Screen Valproic Acid 142.5 H* 142.8 H* 113.4 H* Ur Phencyclidine Scrn Ur Amphetamines Screen U Benzodiazepines Scrn Urine Cocaine Screen U Marijuana (THC) Screen Ethyl Alcohol 05/27/24 05/30/24 07/12/24 10:04 09:29 07:54 WBC 5.0 RBC 3.93 L Hgb 11.9 L Hct 35.5 L MCV 90.3 MCH 30.3 MCHC 33.5 RDW 14.2 Plt Count 161 D MPV 10.1 Immature Gran % (Auto) 0.8 H Neut % (Auto) 46.9 Lymph % (Auto) 42.1 H [place] % (Auto) 8.4 Eos % (Auto) 1.2 Baso % (Auto) 0.6 Lymph # (Auto) 2.1 [place] # (Auto) 0.4 Eos # (Auto) 0.1 Baso # (Auto) 0.0 Abs Immat Gran (auto) 0.04 H Absolute Neuts (auto) 2.3 Absolute Nucleated RBC 0.000 Nucleated RBC % (auto) 0.0 Hold Purple Top Sodium 142 Potassium 3.6 Chloride 106 Carbon Dioxide 29 Anion Gap 11 L BUN 22 H Creatinine 0.88 Estim Creat Clear Calc 41.5 Estimated GFR > 60 Random Glucose 118 H Fasting Glucose Calcium 8.6 D Magnesium Total Bilirubin Direct Bilirubin AST ALT Alkaline Phosphatase Ammonia Total Protein Albumin Triglycerides Cholesterol LDL Cholesterol, Calc HDL Cholesterol TSH Hold Yellow Top Urine Color Urine Appearance Urine pH Ur Specific [place] Urine Protein Urine Glucose (UA) Urine Ketones Urine Blood Urine Nitrite Ur Leukocyte Esterase Urine RBC Urine WBC Ur Squamous Epith Cells Urine Bacteria Hyaline Casts Salicylates Urine Opiates Screen Ur Buprenorphine Scrn Ur Oxycodone Screen Urine Methadone Screen Urine Fentanyl Screen Acetaminophen Ur Barbiturates Screen Valproic Acid 116.9 H* 114.7 H* 65.8 Ur Phencyclidine Scrn Ur Amphetamines Screen U Benzodiazepines Scrn Urine Cocaine Screen U Marijuana (THC) Screen Ethyl Alcohol Airway Mallampati Class: II TM Dist: <=3cm Neck ROM: Full Denture: Upper Partial: Lower Loose/Missing/Broken Teeth: Yes, Upper and Lower Heart: ok Lungs: ok Assessment and Plan Assessment Anesthesia Assessment: Anesthesia Plan Discussed and Chart Reviewed Final Anesthetic Review Family History of Problems with Anesthesia: No History of Problems with Anesthesia: No Anesthetic Plan Anesthetic Plan: GA and Agree w/ Assess. and Plan Disposition: Standard PACU
[2024-07-18] MEDS: Benztropine Mesylate 0.5 MG TABLET PO ×2 (09:09→19:58)
[2024-07-18] MEDS: Famotidine 20 MG TABLET PO (09:09)
[2024-07-18] MEDS: Docusate Sodium 100 MG CAPSULE 200 MG PO ×2 (09:09→19:58)
[2024-07-18] MEDS: lisinopriL 2.5 MG TABLET PO (09:09)
--- NOTE | 2024-07-18 16:35 | HO.PSYCHPN ---
Subjective Subjective Date of Service: 07/18/24 Reason For Visit: Psychosis Subjective Notes: Conditional Voluntary Interim History: The nursing staff reported no changes in mental status she had ECT today. On interview the patient denies new symptoms pleasant cooperative. We are going to work on discharge planning. Mental Status Exam Mental Status Exam Patient Appearance: Appropriate Patient Orientation: Person and Situation Level of Consciousness: Awake and Appropriate Patient Behavior: Guarded and Passive Mood Description: Withdrawn Affect Description: Constricted Patient Cognition Impaired: Yes Ability to Follow Directions: Good Speech Pattern: Clear Hallucinations: None Delusions: Not Present Thought Process: Distracted and Slowed Thinking Thought Content: positive for [place] and positive for Poverty of Content Judgement: Fair Diagnostics Vital Signs (24Hr): Vital Signs - 24 hr 07/17/24 20:00 07/18/24 05:41 07/18/24 06:39 Temperature 97.6 F 97.9 F 97.2 F Pulse Rate 70 64 62 Respiratory Rate 16 96 H 16 Blood Pressure 129/69 100/58 L 103/59 L Pulse Oximetry 97 97 Oxygen Delivery Method Room Air Room Air Oxygen Flow Rate 07/18/24 08:09 07/18/24 08:14 07/18/24 08:19 Temperature 97.3 F Pulse Rate 79 76 76 Respiratory Rate 15 16 16 Blood Pressure 129/64 128/58 L 117/63 Pulse Oximetry 95 97 97 Oxygen Delivery Method Nasal Cannula with ETCO2 Nasal Cannula with ETCO2 Nasal Cannula with ETCO2 Oxygen Flow Rate 2 2 2 07/18/24 08:24 07/18/24 08:40 07/18/24 09:00 Temperature 97.2 F 98.2 F Pulse Rate 71 71 72 Respiratory Rate 16 16 18 Blood Pressure 129/63 126/62 154/71 H Pulse Oximetry 98 97 99 Oxygen Delivery Method Nasal Cannula with ETCO2 Room Air Room Air Oxygen Flow Rate 2 BMI result Body Mass Index 23.6 Labs 07/12/24 07:54 07/12/24 07:54 Imaging Radiology Impressions: ITS Impressions Head CT 05/16/24 14:30 IMPRESSION: There are no acute bleeds or territorial infarcts. No masses are demonstrated. Brain parenchymal attenuation is unremarkable. Medications Medications Current Medications Acetaminophen (Acetaminophen 325 Mg Tablet) 650 mg PO Q6H PRN PRN Reason: Headache/Pain Mild Scale (1-3) Last Admin: 07/04/24 10:04 Dose: 650 mg Al Hydroxide/Mg Hydroxide (Magnesium Hydrox/Alum Hydrox 30 Ml Oral.Susp) 30 ml PO Q6H PRN PRN Reason: Heartburn/Nausea Aripiprazole (Aripiprazole Er 400 Mg Suser.Syr) 400 mg IM Q30D [facility] Last Admin: 07/04/24 15:17 Dose: 400 mg Benztropine Mesylate (Benztropine Mesylate 0.5 Mg Tablet) 0.5 mg PO BID [facility] Last Admin: 07/18/24 09:09 Dose: 0.5 mg Bisacodyl (Bisacodyl 10 Mg Supp.Rect) 10 mg [place] DAILY PRN PRN Reason: Constipation Divalproex Sodium (Divalproex Sodium Er 250 Mg Tab.Er.24h) 750 mg PO BEDTIME [facility] Last Admin: 07/17/24 20:19 Dose: 750 mg Docusate Sodium (Docusate Sodium 100 Mg Capsule) 200 mg PO BID [facility] Last Admin: 07/18/24 09:09 Dose: 200 mg Famotidine (Famotidine 20 Mg Tablet) 20 mg PO DAILY [facility] Last Admin: 07/18/24 09:09 Dose: 20 mg Haloperidol (Haloperidol 5 Mg Tablet) 5 mg PO Q6H PRN PRN Reason: Psychosis Last Admin: 06/25/24 13:27 Dose: 5 mg Haloperidol Lactate (Haloperidol Lactate 5 Mg/Ml Vial) 5 mg IM TID PRN PRN Reason: Refusal antipsychotics Last Admin: 06/27/24 22:06 Dose: 5 mg Lisinopril (Lisinopril 2.5 Mg Tablet) 2.5 mg PO DAILY [facility]; Protocol Last Admin: 07/18/24 09:09 Dose: 2.5 mg Lorazepam (Lorazepam 1 Mg Tablet) 2 mg PO TID PRN PRN Reason: agitation Last Admin: 06/24/24 15:19 Dose: 2 mg Magnesium Hydroxide (Milk Of Magnesia 30 Ml Oral.Susp) 30 ml PO DAILY PRN PRN Reason: Constipation Last Admin: 07/13/24 21:10 Dose: 30 ml Ondansetron HCl (Ondansetron Odt 4 Mg Tab.Rapdis) 8 mg TRANSLINGU Q8H PRN PRN Reason: Nausea and Vomiting Last Admin: 05/26/24 11:02 Dose: 8 mg Polyethylene Glycol (Polyethylene Glycol 3350 17 Gm Powd.Pack) 17 gm PO DAILY PRN PRN Reason: constipation Last Admin: 05/15/24 17:41 Dose: 17 gm Quetiapine Fumarate (Quetiapine Fumarate 200 Mg Tablet) 200 mg PO BEDTIME [facility] Last Admin: 07/17/24 20:20 Dose: 200 mg Sodium Biphosphate/Sodium Phosphate (Sodium Phosphate,[place]-Dibasic 133 Ml Enema) 133 ml [place] ONCE PRN PRN Reason: severe constipation Last Admin: 05/13/24 18:19 Dose: 133 ml Trazodone HCl (Trazodone Hcl 50 Mg Tablet) 50 mg PO BEDTIME MRX1 PRN PRN Reason: Insomnia Last Admin: 07/16/24 20:31 Dose: 50 mg Allergies Allergies Allergy/AdvReac Type Severity Reaction Status Date / Time No Known Allergies Allergy Verified 05/04/24 15:04 Assessment & Plan Assessment & Plan (1) Bipolar 1 disorder: Status: Acute Code(s): F31.9 - Bipolar disorder, unspecified Plan The patient is a 74-year-old female, from [facility], , mother of adult children with a past history of bipolar disorder who responded fairly well with ECT in the past. Historically, she had catatonia that responded very well with ECT. Currently she was admitted for increased psychosis, impulsive behavior and manic symptoms. We tried to give her Abilify Maintena 400 mg with limited results so we started ECT. Plan 1. Continue with Abilify Maintena 400 mg IM monthly. 2. Continue with Depakote 750 p.o. daily. 3. Continue with ECT. 4. Start working for disposition. Reason for continued inpatient stay Substantial Risk for: inability to function, rapid decompensation and med/psych decompensation Time Spent With Patient Time: Total time managing care of this patient today __20__ minutes.
[2024-07-18] MEDS: QUEtiapine Fumarate 200 MG TABLET PO (19:57)
[2024-07-18] MEDS: Divalproex Sodium ER 250 MG TAB.ER.24H 750 MG PO (19:58)
[2024-07-19 08:00] VITALS: BP 90/56; PULSE 77; RESP 16; TEMP 36.4; O2SAT 98
[2024-07-19 08:56] VITALS: BMI 24.2
[2024-07-19] MEDS: Docusate Sodium 100 MG CAPSULE 200 MG PO ×2 (08:56→20:11)
[2024-07-19] MEDS: Famotidine 20 MG TABLET PO (08:56)
[2024-07-19] MEDS: Benztropine Mesylate 0.5 MG TABLET PO ×2 (08:56→20:11)
--- NOTE | 2024-07-19 09:20 | HO.PSYCHPN ---
Subjective Subjective Date of Service: 07/19/24 Reason For Visit: Psychosis Subjective Notes: Conditional Voluntary Interim History: The nursing staff reported the patient had been pleasant cooperative no changes in her mental status. The social insurance specialist reported that [employer] probably will take her. On interview the patient denies new symptoms she feels much better. Mental Status Exam Mental Status Exam Patient Appearance: Appropriate Patient Orientation: Person and Situation Level of Consciousness: Awake and Appropriate Patient Behavior: Guarded and Passive Mood Description: Withdrawn Affect Description: Constricted Patient Cognition Impaired: Yes Ability to Follow Directions: Good Speech Pattern: Clear Hallucinations: None Delusions: Not Present Thought Process: Distracted and Slowed Thinking Thought Content: positive for [place] and positive for Poverty of Content Judgement: Fair Diagnostics Vital Signs (24Hr): Vital Signs - 24 hr 07/18/24 20:00 07/19/24 08:00 Temperature 96.8 F 97.6 F Pulse Rate 69 77 Respiratory Rate 16 16 Blood Pressure 96/51 L 90/56 L Pulse Oximetry 96 98 Oxygen Delivery Method Room Air Room Air BMI result Body Mass Index 24.2 Labs 07/12/24 07:54 07/12/24 07:54 Imaging Radiology Impressions: [facility] Impressions Head CT 05/16/24 14:30 IMPRESSION: There are no acute bleeds or territorial infarcts. No masses are demonstrated. Brain parenchymal attenuation is unremarkable. Medications Medications Current Medications Acetaminophen (Acetaminophen 325 Mg Tablet) 650 mg PO Q6H PRN PRN Reason: Headache/Pain Mild Scale (1-3) Last Admin: 07/04/24 10:04 Dose: 650 mg Al Hydroxide/Mg Hydroxide (Magnesium Hydrox/Alum Hydrox 30 Ml Oral.Susp) 30 ml PO Q6H PRN PRN Reason: Heartburn/Nausea Aripiprazole (Aripiprazole Er 400 Mg Suser.Syr) 400 mg IM Q30D [facility] Last Admin: 07/04/24 15:17 Dose: 400 mg Benztropine Mesylate (Benztropine Mesylate 0.5 Mg Tablet) 0.5 mg PO BID [facility] Last Admin: 07/19/24 08:56 Dose: 0.5 mg Bisacodyl (Bisacodyl 10 Mg Supp.Rect) 10 mg [place] DAILY PRN PRN Reason: Constipation Divalproex Sodium (Divalproex Sodium Er 250 Mg Tab.Er.24h) 750 mg PO BEDTIME [facility] Last Admin: 07/18/24 19:58 Dose: 750 mg Docusate Sodium (Docusate Sodium 100 Mg Capsule) 200 mg PO BID [facility] Last Admin: 07/19/24 08:56 Dose: 200 mg Famotidine (Famotidine 20 Mg Tablet) 20 mg PO DAILY [facility] Last Admin: 07/19/24 08:56 Dose: 20 mg Haloperidol (Haloperidol 5 Mg Tablet) 5 mg PO Q6H PRN PRN Reason: Psychosis Last Admin: 06/25/24 13:27 Dose: 5 mg Haloperidol Lactate (Haloperidol Lactate 5 Mg/Ml Vial) 5 mg IM TID PRN PRN Reason: Refusal antipsychotics Last Admin: 06/27/24 22:06 Dose: 5 mg Lisinopril (Lisinopril 2.5 Mg Tablet) 2.5 mg PO DAILY [facility]; Protocol Last Admin: 07/19/24 08:58 Dose: Not Given Lorazepam (Lorazepam 1 Mg Tablet) 2 mg PO TID PRN PRN Reason: agitation Last Admin: 06/24/24 15:19 Dose: 2 mg Magnesium Hydroxide (Milk Of Magnesia 30 Ml Oral.Susp) 30 ml PO DAILY PRN PRN Reason: Constipation Last Admin: 07/13/24 21:10 Dose: 30 ml Ondansetron HCl (Ondansetron Odt 4 Mg Tab.Rapdis) 8 mg TRANSLINGU Q8H PRN PRN Reason: Nausea and Vomiting Last Admin: 05/26/24 11:02 Dose: 8 mg Polyethylene Glycol (Polyethylene Glycol 3350 17 Gm Powd.Pack) 17 gm PO DAILY PRN PRN Reason: constipation Last Admin: 05/15/24 17:41 Dose: 17 gm Quetiapine Fumarate (Quetiapine Fumarate 200 Mg Tablet) 200 mg PO BEDTIME [facility] Last Admin: 07/18/24 19:57 Dose: 200 mg Sodium Biphosphate/Sodium Phosphate (Sodium Phosphate,[place]-Dibasic 133 Ml Enema) 133 ml PA ONCE PRN PRN Reason: severe constipation Last Admin: 05/13/24 18:19 Dose: 133 ml Trazodone HCl (Trazodone Hcl 50 Mg Tablet) 50 mg PO BEDTIME MRX1 PRN PRN Reason: Insomnia Last Admin: 07/16/24 20:31 Dose: 50 mg Allergies Allergies Allergy/AdvReac Type Severity Reaction Status Date / Time No Known Allergies Allergy Verified 05/04/24 15:04 Assessment & Plan Assessment & Plan (1) Bipolar 1 disorder: Status: Acute Code(s): F31.9 - Bipolar disorder, unspecified Plan The patient is a 74-year-old female, from [facility], , mother of adult children with a past history of bipolar disorder who responded fairly well with ECT in the past. Historically, she had catatonia that responded very well with ECT. Currently she was admitted for increased psychosis, impulsive behavior and manic symptoms. We tried to give her Abilify Maintena 400 mg with limited results so we started ECT. Plan 1. Continue with Abilify Maintena 400 mg IM monthly. 2. Continue with Depakote 750 p.o. daily. 3. Continue with ECT. 4. Start working for disposition. Reason for continued inpatient stay Substantial Risk for: inability to function, rapid decompensation and med/psych decompensation Time Spent With Patient Time: Total time managing care of this patient today __20__ minutes.
--- NOTE | 2024-07-19 11:21 | HO.POSTANES ---
Post Anesthesia Evaluation Post Anesthesia Evaluation Date of Service: 07/18/24 Vital Signs: Vital Signs Temp Pulse Resp BP Pulse Ox O2 Del Method 07/19/24 08:00 97.6 F 77 16 90/56 L 98 Room Air Anesthesia: General Mental Status: Awake Pain Control: Satisfactory Nausea/Vomiting: None Hydration: Adequate Anesthesia-Related Issues: No Anes. Related Issues
[2024-07-19 20:00] VITALS: BP 130/66; PULSE 78; RESP 18; TEMP 36.1; O2SAT 98
[2024-07-19] MEDS: Divalproex Sodium ER 250 MG TAB.ER.24H 750 MG PO (20:11)
[2024-07-19] MEDS: QUEtiapine Fumarate 200 MG TABLET PO (20:12)
[2024-07-20] VITALS (9 sets, daily range): BP systolic 118–158; BP diastolic 58–76; PULSE 62–73; RESP 12–18; TEMP 36.1–36.7; O2SAT 97–100
--- NOTE | 2024-07-20 08:53 | P.CONAN_ITS ---
[facility] Active Problems Active Problems: All Active Problems Dementia (Acute) Bipolar 1 disorder (Acute) Past Medical History Functional capacity: independent ambulation Family History Family history of problems with anesthesia: No Surgical History History of Problems with Anesthesia: No Social History Social History Household Members: Children Housing: House Patient Tobacco Use Status: Never used Tobacco Smoked in Last 30 Days: No Use of substances other than those prescribed or required for medical reasons: No Currently Displaying Signs/Symptoms of Drug Intoxication Withdrawal: No Have you been hit, kicked, punched, or otherwise hurt by someone within the past year? If so, by whom?: No Do you feel safe in your current relationship?: No Current Relationship Is there a partner from a previous relationship who is making you feel unsafe now?: No Are you made to feel afraid or neglected: No Advance Directives: No Advance Directives Information Provided: No Do you have thoughts of harming others: None Do you have a plan to hurt others: No Plan Recently lost weight without trying: No Nutrition Risks: No Nutritional Risk Patient : No : No Sexual orientation: Straight/Heterosexual Meds Allergies Allergy/AdvReac Type Severity Reaction Status Date / Time No Known Allergies Allergy Verified 05/04/24 15:04 Active Medications: Current Medications Acetaminophen (Acetaminophen 325 Mg Tablet) 650 mg PO Q6H PRN PRN Reason: Headache/Pain Mild Scale (1-3) Last Admin: 07/04/24 10:04 Dose: 650 mg Al Hydroxide/Mg Hydroxide (Magnesium Hydrox/Alum Hydrox 30 Ml Oral.Susp) 30 ml PO Q6H PRN PRN Reason: Heartburn/Nausea Aripiprazole (Aripiprazole Er 400 Mg Suser.Syr) 400 mg IM Q30D [facility] Last Admin: 07/04/24 15:17 Dose: 400 mg Benztropine Mesylate (Benztropine Mesylate 0.5 Mg Tablet) 0.5 mg PO BID [facility] Last Admin: 07/19/24 20:11 Dose: 0.5 mg Bisacodyl (Bisacodyl 10 Mg Supp.Rect) 10 mg [place] DAILY PRN PRN Reason: Constipation Divalproex Sodium (Divalproex Sodium Er 250 Mg Tab.Er.24h) 750 mg PO BEDTIME [facility] Last Admin: 07/19/24 20:11 Dose: 750 mg Docusate Sodium (Docusate Sodium 100 Mg Capsule) 200 mg PO BID [facility] Last Admin: 07/19/24 20:11 Dose: 200 mg Famotidine (Famotidine 20 Mg Tablet) 20 mg PO DAILY [facility] Last Admin: 07/19/24 08:56 Dose: 20 mg Haloperidol (Haloperidol 5 Mg Tablet) 5 mg PO Q6H PRN PRN Reason: Psychosis Last Admin: 06/25/24 13:27 Dose: 5 mg Haloperidol Lactate (Haloperidol Lactate 5 Mg/Ml Vial) 5 mg IM TID PRN PRN Reason: Refusal antipsychotics Last Admin: 06/27/24 22:06 Dose: 5 mg Lisinopril (Lisinopril 2.5 Mg Tablet) 2.5 mg PO DAILY [facility]; Protocol Last Admin: 07/19/24 08:58 Dose: Not Given Lorazepam (Lorazepam 1 Mg Tablet) 2 mg PO TID PRN PRN Reason: agitation Last Admin: 06/24/24 15:19 Dose: 2 mg Magnesium Hydroxide (Milk Of Magnesia 30 Ml Oral.Susp) 30 ml PO DAILY PRN PRN Reason: Constipation Last Admin: 07/13/24 21:10 Dose: 30 ml Ondansetron HCl (Ondansetron Odt 4 Mg Tab.Rapdis) 8 mg TRANSLINGU Q8H PRN PRN Reason: Nausea and Vomiting Last Admin: 05/26/24 11:02 Dose: 8 mg Polyethylene Glycol (Polyethylene Glycol 3350 17 Gm Powd.Pack) 17 gm PO DAILY PRN PRN Reason: constipation Last Admin: 05/15/24 17:41 Dose: 17 gm Quetiapine Fumarate (Quetiapine Fumarate 200 Mg Tablet) 200 mg PO BEDTIME [facility] Last Admin: 07/19/24 20:12 Dose: 200 mg Sodium Biphosphate/Sodium Phosphate (Sodium Phosphate,[place]-Dibasic 133 Ml Enema) 133 ml [place] ONCE PRN PRN Reason: severe constipation Last Admin: 05/13/24 18:19 Dose: 133 ml Trazodone HCl (Trazodone Hcl 50 Mg Tablet) 50 mg PO BEDTIME MRX1 PRN PRN Reason: Insomnia Last Admin: 07/16/24 20:31 Dose: 50 mg Home Medications ?Medication ?Instructions ?Recorded ?Confirmed ?Last Taken ?Type benztropine 0.5 mg tablet 0.5 mg PO BEDTIME 05/04/24 05/04/24 Unknown History divalproex 250 mg tablet,extended 250 mg PO BEDTIME 05/04/24 05/04/24 Unknown History release 24 hr lamotrigine 100 mg tablet 100 mg PO BEDTIME 05/04/24 05/04/24 Unknown History lisinopril 5 mg tablet 2.5 mg PO DAILY 05/04/24 05/04/24 Unknown History quetiapine 100 mg tablet 100 mg PO DAILY 05/04/24 05/04/24 Unknown History quetiapine 300 mg tablet 300 mg PO BEDTIME 05/04/24 05/04/24 Unknown History quetiapine 50 mg tablet 50 mg PO BID PRN Agitation 05/04/24 05/04/24 Unknown History Exam Height,Weight and Vital Signs: Height 5 ft Weight 56.245 kg Last Vital Signs Temp 98.1 F 07/20/24 08:27 Pulse 64 07/20/24 08:27 Resp 16 07/20/24 08:27 BP 118/60 07/20/24 08:27 Pulse Ox 98 07/20/24 08:27 O2 Del Method Room Air 07/20/24 08:27 O2 Flow Rate 2 07/18/24 08:24 Pertinent Lab Results Pertinent Lab Results: Laboratory Tests 05/04/24 05/05/24 05/05/24 15:03 12:44 13:08 WBC 4.9 RBC 4.49 Hgb 13.4 Hct 40.3 MCV 89.8 MCH 29.8 MCHC 33.3 RDW 13.4 Plt Count 215 MPV 9.1 L Immature Gran % (Auto) 0.2 Neut % (Auto) 51.7 Lymph % (Auto) 32.9 [place] % (Auto) 11.1 H Eos % (Auto) 3.5 Baso % (Auto) 0.6 Lymph # (Auto) 1.6 [place] # (Auto) 0.5 Eos # (Auto) 0.2 Baso # (Auto) 0.0 Abs Immat Gran (auto) 0.01 Absolute Neuts (auto) 2.5 Absolute Nucleated RBC 0.000 Nucleated RBC % (auto) 0.0 Hold Purple Top Sodium 141 Potassium 4.0 Chloride 102 Carbon Dioxide 31 H Anion Gap 12 BUN 19 H Creatinine 1.08 Estim Creat Clear Calc 37.5 Estimated GFR 50 Random Glucose 104 Fasting Glucose Calcium 9.4 Magnesium 2.3 Total Bilirubin 0.6 Direct Bilirubin AST 18 ALT 13 Alkaline Phosphatase 122 H Ammonia Total Protein 7.5 Albumin 4.2 Triglycerides Cholesterol LDL Cholesterol, Calc HDL Cholesterol TSH 1.25 Hold Yellow Top See Note Urine Color Urine Appearance Urine pH Ur Specific [place] Urine Protein Urine Glucose (UA) Urine Ketones Urine Blood Urine Nitrite Ur Leukocyte Esterase Urine RBC Urine WBC Ur Squamous Epith Cells Urine Bacteria Hyaline Casts Salicylates < 5.0 L Urine Opiates Screen Ur Buprenorphine Scrn Ur Oxycodone Screen Urine Methadone Screen Urine Fentanyl Screen Acetaminophen < 3 Ur Barbiturates Screen Valproic Acid < 12.5 L Ur Phencyclidine Scrn Ur Amphetamines Screen U Benzodiazepines Scrn Urine Cocaine Screen U Marijuana (THC) Screen Ethyl Alcohol < 10 05/05/24 05/09/24 05/16/24 13:16 08:10 20:12 WBC RBC Hgb Hct MCV MCH MCHC RDW Plt Count MPV Immature Gran % (Auto) Neut % (Auto) Lymph % (Auto) [place] % (Auto) Eos % (Auto) Baso % (Auto) Lymph # (Auto) [place] # (Auto) Eos # (Auto) Baso # (Auto) Abs Immat Gran (auto) Absolute Neuts (auto) Absolute Nucleated RBC Nucleated RBC % (auto) Hold Purple Top SEE NOTE Sodium 138 143 Potassium 3.8 4.1 Chloride 101 104 Carbon Dioxide 30 H 27 Anion Gap 11 L 16 BUN 27 H 26 H Creatinine 1.24 0.90 Estim Creat Clear Calc 32.6 44.6 Estimated GFR 43 > 60 Random Glucose 130 H Fasting Glucose 112 H Calcium 9.3 9.2 Magnesium Total Bilirubin 0.9 0.6 Direct Bilirubin 0.2 AST 18 15 ALT 12 10 Alkaline Phosphatase 100 96 Ammonia 25 Total Protein 7.3 6.7 Albumin 4.1 3.8 Triglycerides 61 Cholesterol 157 LDL Cholesterol, Calc 100 H HDL Cholesterol 45 TSH Hold Yellow Top Urine Color Yellow Urine Appearance Clear Urine pH 7.0 Ur Specific [place] 1.020 Urine Protein Negative Urine Glucose (UA) Negative Urine Ketones Negative Urine Blood Negative Urine Nitrite Negative Ur Leukocyte Esterase Moderate (2+) H Urine RBC 0-2 Urine WBC 0-5 Ur Squamous Epith Cells 0-2 Urine Bacteria None Seen Hyaline Casts 0-2 Salicylates Urine Opiates Screen Not Detected Ur Buprenorphine Scrn Not Detected Ur Oxycodone Screen Not Detected Urine Methadone Screen Not Detected Urine Fentanyl Screen Not Detected Acetaminophen Ur Barbiturates Screen Not Detected Valproic Acid 50.2 Ur Phencyclidine Scrn Not Detected Ur Amphetamines Screen Not Detected U Benzodiazepines Scrn Not Detected Urine Cocaine Screen Not Detected U Marijuana (THC) Screen Not Detected Ethyl Alcohol 05/21/24 05/22/24 05/24/24 08:09 08:03 18:05 WBC RBC Hgb Hct MCV MCH MCHC RDW Plt Count MPV Immature Gran % (Auto) Neut % (Auto) Lymph % (Auto) [place] % (Auto) Eos % (Auto) Baso % (Auto) Lymph # (Auto) [place] # (Auto) Eos # (Auto) Baso # (Auto) Abs Immat Gran (auto) Absolute Neuts (auto) Absolute Nucleated RBC Nucleated RBC % (auto) Hold Purple Top Sodium 143 Potassium 3.9 Chloride 105 Carbon Dioxide 29 Anion Gap 13 BUN 31 H Creatinine 1.11 Estim Creat Clear Calc 36.0 Estimated GFR 48 Random Glucose Fasting Glucose 81 Calcium 9.5 Magnesium Total Bilirubin 0.5 Direct Bilirubin AST 17 ALT 9 Alkaline Phosphatase 89 Ammonia 20 Total Protein 7.1 Albumin 4.1 Triglycerides Cholesterol LDL Cholesterol, Calc HDL Cholesterol TSH Hold Yellow Top Urine Color Urine Appearance Urine pH Ur Specific [place] Urine Protein Urine Glucose (UA) Urine Ketones Urine Blood Urine Nitrite Ur Leukocyte Esterase Urine RBC Urine WBC Ur Squamous Epith Cells Urine Bacteria Hyaline Casts Salicylates Urine Opiates Screen Ur Buprenorphine Scrn Ur Oxycodone Screen Urine Methadone Screen Urine Fentanyl Screen Acetaminophen Ur Barbiturates Screen Valproic Acid 142.5 H* 142.8 H* 113.4 H* Ur Phencyclidine Scrn Ur Amphetamines Screen U Benzodiazepines Scrn Urine Cocaine Screen U Marijuana (THC) Screen Ethyl Alcohol 05/27/24 05/30/24 07/12/24 10:04 09:29 07:54 WBC 5.0 RBC 3.93 L Hgb 11.9 L Hct 35.5 L MCV 90.3 MCH 30.3 MCHC 33.5 RDW 14.2 Plt Count 161 D MPV 10.1 Immature Gran % (Auto) 0.8 H Neut % (Auto) 46.9 Lymph % (Auto) 42.1 H [place] % (Auto) 8.4 Eos % (Auto) 1.2 Baso % (Auto) 0.6 Lymph # (Auto) 2.1 [place] # (Auto) 0.4 Eos # (Auto) 0.1 Baso # (Auto) 0.0 Abs Immat Gran (auto) 0.04 H Absolute Neuts (auto) 2.3 Absolute Nucleated RBC 0.000 Nucleated RBC % (auto) 0.0 Hold Purple Top Sodium 142 Potassium 3.6 Chloride 106 Carbon Dioxide 29 Anion Gap 11 L BUN 22 H Creatinine 0.88 Estim Creat Clear Calc 41.5 Estimated GFR > 60 Random Glucose 118 H Fasting Glucose Calcium 8.6 D Magnesium Total Bilirubin Direct Bilirubin AST ALT Alkaline Phosphatase Ammonia Total Protein Albumin Triglycerides Cholesterol LDL Cholesterol, Calc HDL Cholesterol TSH Hold Yellow Top Urine Color Urine Appearance Urine pH Ur Specific [place] Urine Protein Urine Glucose (UA) Urine Ketones Urine Blood Urine Nitrite Ur Leukocyte Esterase Urine RBC Urine WBC Ur Squamous Epith Cells Urine Bacteria Hyaline Casts Salicylates Urine Opiates Screen Ur Buprenorphine Scrn Ur Oxycodone Screen Urine Methadone Screen Urine Fentanyl Screen Acetaminophen Ur Barbiturates Screen Valproic Acid 116.9 H* 114.7 H* 65.8 Ur Phencyclidine Scrn Ur Amphetamines Screen U Benzodiazepines Scrn Urine Cocaine Screen U Marijuana (THC) Screen Ethyl Alcohol Airway Mallampati Class: II TM Dist: >3cm Neck ROM: Full Loose/Missing/Broken Teeth: Yes, Upper and Lower Heart: RRR Lungs: CTA Assessment and Plan Assessment Anesthesia Assessment: Anesthesia Plan Discussed and Chart Reviewed Final Anesthetic Review Family History of Problems with Anesthesia: No History of Problems with Anesthesia: No NPO: Yes ASA Class: II Final Preanesthetic Review: Meds/Allgs Chart Reviewed, Consent Obtained/Reviewed and Anes Risks/Benef Reviewed Patient Risk: Low Procedure Risk: Intermediate Anesthetic Plan Anesthetic Plan: GA Disposition: Standard PACU
--- NOTE | 2024-07-20 09:47 | MHC.SHP ---
Pre-Procedural Eval Section A - 24 Hr Update-Section A only Date of Service: 07/20/24 The patient is an INPATIENT: Yes Changes since office visit: Yes Patient answered all questions; No Cold of Flu in the past 2 weeks, No New Medical Problems and No Changes in Medication The patient has been examined within 24 hours of the surgical procedure. The History & Physical has been completed within 30 days and I have reviewed it.: Yes Section B - Complete if H&P > 30 days Chief Complaint: Psychosis Allergies: Allergies Allergy/AdvReac Type Severity Reaction Status Date / Time No Known Allergies Allergy Verified 05/04/24 15:04 Plan I have reviewed the history and physical and performed a pertinent physical examination on my patient. No changes have occurred unless specified. Time Spent With Patient Time: Total time managing care of this patient today ____ minutes.
--- NOTE | 2024-07-20 09:57 | HO.ECTPROC ---
ECT Procedure Note Diagnosis/Treatment Date of Service: 07/22/24 Diagnosis: Bipolar disorder Previous ECT Date: 07/18/24 Current Treatment Number: 9 Treatment: Series Time: Total time managing care of this patient today ____ minutes. ECT Settings Device: THYMATRON DGx Electrode Placement: Right Unilateral Program/Pulse Width: 0.50 Energy Percent: 100 Seizure Duration By EEG (in seconds): 33 Ancillary Medications Anti-emetics: Zofran - Pre ECT Miscillaneous Medications: Propofol Treatment Recommendations No Changes Recommended: No change Pt Tolerated Procedure w/o Issue: Yes
[2024-07-20] MEDS: Famotidine 20 MG TABLET PO (11:37)
[2024-07-20] MEDS: Benztropine Mesylate 0.5 MG TABLET PO ×2 (11:37→19:58)
[2024-07-20] MEDS: Docusate Sodium 100 MG CAPSULE 200 MG PO ×2 (11:37→19:58)
[2024-07-20] MEDS: lisinopriL 2.5 MG TABLET PO (11:37)
--- NOTE | 2024-07-20 16:16 | HO.PSYCHPN ---
Subjective Subjective Date of Service: 07/20/24 Reason For Visit: Psychosis Subjective Notes: Conditional Voluntary Interim History: The nursing staff reported the patient had been pleasant cooperative, had been fully compliant with treatment. Today she had ECT without no complications. On interview the patient reports that sometimes she has memory loss so we are going to change ECT 2 Mondays and Fridays. Mental Status Exam Mental Status Exam Patient Appearance: Well Grooomed and Appropriate Patient Orientation: Person and Situation Level of Consciousness: Awake and Appropriate Patient Behavior: Guarded and Passive Mood Description: Withdrawn Affect Description: Constricted Patient Cognition Impaired: Yes Ability to Follow Directions: Good Speech Pattern: Clear Hallucinations: None Delusions: Not Present Thought Process: Distracted and Slowed Thinking Thought Content: positive for [place] and positive for Poverty of Content Judgement: Fair Diagnostics Vital Signs (24Hr): Vital Signs - 24 hr 07/19/24 20:00 07/20/24 08:27 07/20/24 09:45 Temperature 97 F 98.1 F 97.7 F Pulse Rate 78 64 70 Respiratory Rate 18 16 18 Blood Pressure 130/66 118/60 158/76 H Pulse Oximetry 98 98 99 Oxygen Delivery Method Room Air Room Air Nasal Cannula with ETCO2 Oxygen Flow Rate 2 07/20/24 09:50 07/20/24 09:55 07/20/24 10:00 Temperature Pulse Rate 68 73 73 Respiratory Rate 12 14 12 Blood Pressure 147/70 H 142/70 H 151/75 H Pulse Oximetry 98 98 98 Oxygen Delivery Method Nasal Cannula with ETCO2 Nasal Cannula with ETCO2 Nasal Cannula with ETCO2 Oxygen Flow Rate 2 2 2 07/20/24 10:15 07/20/24 10:30 07/20/24 10:57 Temperature 97.0 F 97.3 F Pulse Rate 69 70 68 Respiratory Rate 16 18 16 Blood Pressure 131/58 L 129/68 145/75 H Pulse Oximetry 97 97 97 Oxygen Delivery Method Room Air Room Air Room Air Oxygen Flow Rate BMI result Body Mass Index 24.2 Labs 07/12/24 07:54 07/12/24 07:54 Imaging Radiology Impressions: ITS Impressions Head CT 05/16/24 14:30 IMPRESSION: There are no acute bleeds or territorial infarcts. No masses are demonstrated. Brain parenchymal attenuation is unremarkable. Medications Medications Current Medications Acetaminophen (Acetaminophen 325 Mg Tablet) 650 mg PO Q6H PRN PRN Reason: Headache/Pain Mild Scale (1-3) Last Admin: 07/04/24 10:04 Dose: 650 mg Al Hydroxide/Mg Hydroxide (Magnesium Hydrox/Alum Hydrox 30 Ml Oral.Susp) 30 ml PO Q6H PRN PRN Reason: Heartburn/Nausea Aripiprazole (Aripiprazole Er 400 Mg Suser.Syr) 400 mg IM Q30D [facility] Last Admin: 07/04/24 15:17 Dose: 400 mg Benztropine Mesylate (Benztropine Mesylate 0.5 Mg Tablet) 0.5 mg PO BID [facility] Last Admin: 07/20/24 11:37 Dose: 0.5 mg Bisacodyl (Bisacodyl 10 Mg Supp.Rect) 10 mg [place] DAILY PRN PRN Reason: Constipation Divalproex Sodium (Divalproex Sodium Er 250 Mg Tab.Er.24h) 750 mg PO BEDTIME [facility] Last Admin: 07/19/24 20:11 Dose: 750 mg Docusate Sodium (Docusate Sodium 100 Mg Capsule) 200 mg PO BID [facility] Last Admin: 07/20/24 11:37 Dose: 200 mg Famotidine (Famotidine 20 Mg Tablet) 20 mg PO DAILY [facility] Last Admin: 07/20/24 11:37 Dose: 20 mg Haloperidol (Haloperidol 5 Mg Tablet) 5 mg PO Q6H PRN PRN Reason: Psychosis Last Admin: 06/25/24 13:27 Dose: 5 mg Haloperidol Lactate (Haloperidol Lactate 5 Mg/Ml Vial) 5 mg IM TID PRN PRN Reason: Refusal antipsychotics Last Admin: 06/27/24 22:06 Dose: 5 mg Lactated Ringer's (Lr) 500 mls @ 20 mls/hr IVCONT .Q24H [facility] Last Admin: 07/20/24 10:52 Dose: Not Given Lisinopril (Lisinopril 2.5 Mg Tablet) 2.5 mg PO DAILY [facility]; Protocol Last Admin: 07/20/24 11:37 Dose: 2.5 mg Lorazepam (Lorazepam 1 Mg Tablet) 2 mg PO TID PRN PRN Reason: agitation Last Admin: 06/24/24 15:19 Dose: 2 mg Magnesium Hydroxide (Milk Of Magnesia 30 Ml Oral.Susp) 30 ml PO DAILY PRN PRN Reason: Constipation Last Admin: 07/13/24 21:10 Dose: 30 ml Naloxone HCl (Naloxone Hcl 0.4 Mg/Ml Vial) 0.04 mg IVPUSH Q5M PRN PRN Reason: Excessive sedation or RR < 8 Ondansetron HCl (Ondansetron Odt 4 Mg Tab.Rapdis) 8 mg TRANSLINGU Q8H PRN PRN Reason: Nausea and Vomiting Last Admin: 05/26/24 11:02 Dose: 8 mg Polyethylene Glycol (Polyethylene Glycol 3350 17 Gm Powd.Pack) 17 gm PO DAILY PRN PRN Reason: constipation Last Admin: 05/15/24 17:41 Dose: 17 gm Quetiapine Fumarate (Quetiapine Fumarate 200 Mg Tablet) 200 mg PO BEDTIME [facility] Last Admin: 07/19/24 20:12 Dose: 200 mg Sodium Biphosphate/Sodium Phosphate (Sodium Phosphate,[place]-Dibasic 133 Ml Enema) 133 ml [place] ONCE PRN PRN Reason: severe constipation Last Admin: 05/13/24 18:19 Dose: 133 ml Trazodone HCl (Trazodone Hcl 50 Mg Tablet) 50 mg PO BEDTIME MRX1 PRN PRN Reason: Insomnia Last Admin: 07/16/24 20:31 Dose: 50 mg Allergies Allergies Allergy/AdvReac Type Severity Reaction Status Date / Time No Known Allergies Allergy Verified 05/04/24 15:04 Assessment & Plan Assessment & Plan (1) Bipolar 1 disorder: Status: Acute Code(s): F31.9 - Bipolar disorder, unspecified Plan The patient is a 74-year-old female, from [place], , mother of adult children with a past history of bipolar disorder who responded fairly well with ECT in the past. Historically, she had catatonia that responded very well with ECT. Currently she was admitted for increased psychosis, impulsive behavior and manic symptoms. We tried to give her Abilify Maintena 400 mg with limited results so we started ECT. Plan 1. Continue with Abilify Maintena 400 mg IM monthly. 2. Continue with Depakote 750 p.o. daily. 3. Continue with ECT. 4. Start working for disposition. Reason for continued inpatient stay Substantial Risk for: inability to function, rapid decompensation and med/psych decompensation Time Spent With Patient Time: Total time managing care of this patient today __20__ minutes.
[2024-07-20] MEDS: Divalproex Sodium ER 250 MG TAB.ER.24H 750 MG PO (19:58)
[2024-07-20] MEDS: QUEtiapine Fumarate 200 MG TABLET PO (19:58)
[2024-07-21 08:54] VITALS: BP 114/68; PULSE 73; RESP 18; TEMP 36.6; O2SAT 96
[2024-07-21] MEDS: Famotidine 20 MG TABLET PO (08:56)
[2024-07-21] MEDS: Benztropine Mesylate 0.5 MG TABLET PO ×2 (08:56→20:01)
[2024-07-21] MEDS: Docusate Sodium 100 MG CAPSULE 200 MG PO ×2 (08:57→20:01)
[2024-07-21] MEDS: lisinopriL 2.5 MG TABLET PO (08:57)
--- NOTE | 2024-07-21 17:30 | HO.PSYCHPN ---
Subjective Subjective Date of Service: 07/21/24 Reason For Visit: Psychosis Interim History: Met with patient; discussed with team Discussed ECT and she said at times it was a little too much.. But today she is feeling okay. Mental Status Exam Mental Status Exam Patient Appearance: Well Grooomed and Appropriate Patient Orientation: Person and Situation Level of Consciousness: Awake and Appropriate Patient Behavior: Appropriate, Passive and Good Eye Contact Mood Description: Calm ('OK ) Affect Description: Constricted Patient Cognition Impaired: Yes Ability to Follow Directions: Good Speech Pattern: Clear Hallucinations: None Delusions: Not Present Thought Process: Distracted and Slowed Thinking Thought Content: positive for [place] and positive for Poverty of Content Judgement: Fair Diagnostics Vital Signs (24Hr): Vital Signs - 24 hr 07/20/24 19:57 07/21/24 08:54 Temperature 96.9 F 97.9 F Pulse Rate 62 73 Respiratory Rate 16 18 Blood Pressure 124/66 114/68 Pulse Oximetry 100 96 Oxygen Delivery Method Room Air Room Air BMI result Body Mass Index 24.2 Labs 07/12/24 07:54 07/12/24 07:54 Imaging Radiology Impressions: [facility] Impressions Head CT 05/16/24 14:30 IMPRESSION: There are no acute bleeds or territorial infarcts. No masses are demonstrated. Brain parenchymal attenuation is unremarkable. Medications Medications Current Medications Acetaminophen (Acetaminophen 325 Mg Tablet) 650 mg PO Q6H PRN PRN Reason: Headache/Pain Mild Scale (1-3) Last Admin: 07/04/24 10:04 Dose: 650 mg Al Hydroxide/Mg Hydroxide (Magnesium Hydrox/Alum Hydrox 30 Ml Oral.Susp) 30 ml PO Q6H PRN PRN Reason: Heartburn/Nausea Aripiprazole (Aripiprazole Er 400 Mg Suser.Syr) 400 mg IM Q30D [facility] Last Admin: 07/04/24 15:17 Dose: 400 mg Benztropine Mesylate (Benztropine Mesylate 0.5 Mg Tablet) 0.5 mg PO BID [facility] Last Admin: 07/21/24 08:56 Dose: 0.5 mg Bisacodyl (Bisacodyl 10 Mg Supp.Rect) 10 mg [place] DAILY PRN PRN Reason: Constipation Divalproex Sodium (Divalproex Sodium Er 250 Mg Tab.Er.24h) 750 mg PO BEDTIME [facility] Last Admin: 07/20/24 19:58 Dose: 750 mg Docusate Sodium (Docusate Sodium 100 Mg Capsule) 200 mg PO BID [facility] Last Admin: 07/21/24 08:57 Dose: 200 mg Famotidine (Famotidine 20 Mg Tablet) 20 mg PO DAILY [facility] Last Admin: 07/21/24 08:56 Dose: 20 mg Haloperidol (Haloperidol 5 Mg Tablet) 5 mg PO Q6H PRN PRN Reason: Psychosis Last Admin: 06/25/24 13:27 Dose: 5 mg Haloperidol Lactate (Haloperidol Lactate 5 Mg/Ml Vial) 5 mg IM TID PRN PRN Reason: Refusal antipsychotics Last Admin: 06/27/24 22:06 Dose: 5 mg Lisinopril (Lisinopril 2.5 Mg Tablet) 2.5 mg PO DAILY [facility]; Protocol Last Admin: 07/21/24 08:57 Dose: 2.5 mg Lorazepam (Lorazepam 1 Mg Tablet) 2 mg PO TID PRN PRN Reason: agitation Last Admin: 06/24/24 15:19 Dose: 2 mg Magnesium Hydroxide (Milk Of Magnesia 30 Ml Oral.Susp) 30 ml PO DAILY PRN PRN Reason: Constipation Last Admin: 07/13/24 21:10 Dose: 30 ml Naloxone HCl (Naloxone Hcl 0.4 Mg/Ml Vial) 0.04 mg IVPUSH Q5M PRN PRN Reason: Excessive sedation or RR < 8 Ondansetron HCl (Ondansetron Odt 4 Mg Tab.Rapdis) 8 mg TRANSLINGU Q8H PRN PRN Reason: Nausea and Vomiting Last Admin: 05/26/24 11:02 Dose: 8 mg Polyethylene Glycol (Polyethylene Glycol 3350 17 Gm Powd.Pack) 17 gm PO DAILY PRN PRN Reason: constipation Last Admin: 05/15/24 17:41 Dose: 17 gm Quetiapine Fumarate (Quetiapine Fumarate 200 Mg Tablet) 200 mg PO BEDTIME [facility] Last Admin: 07/20/24 19:58 Dose: 200 mg Sodium Biphosphate/Sodium Phosphate (Sodium Phosphate,[place]-Dibasic 133 Ml Enema) 133 ml [place] ONCE PRN PRN Reason: severe constipation Last Admin: 05/13/24 18:19 Dose: 133 ml Trazodone HCl (Trazodone Hcl 50 Mg Tablet) 50 mg PO BEDTIME MRX1 PRN PRN Reason: Insomnia Last Admin: 07/16/24 20:31 Dose: 50 mg Allergies Allergies Allergy/AdvReac Type Severity Reaction Status Date / Time No Known Allergies Allergy Verified 05/04/24 15:04 Assessment & Plan Assessment & Plan (1) Bipolar 1 disorder: Status: Acute Code(s): F31.9 - Bipolar disorder, unspecified Plan The patient is a 74-year-old female, from [facility], , mother of adult children with a past history of bipolar disorder who responded fairly well with ECT in the past. Historically, she had catatonia that responded very well with ECT. Currently she was admitted for increased psychosis, impulsive behavior and manic symptoms. We tried to give her Abilify Maintena 400 mg with limited results so we started ECT. Hospital course: 07/21 continue treatment plan Plan 1. Continue with Abilify Maintena 400 mg IM monthly. 2. Continue with Depakote 750 p.o. daily. 3. Continue with ECT. 4. Start working for disposition. Patient educated on: diagnosis and ECT Informed Consent: understands and further education needed Reason for continued inpatient stay Substantial Risk for: rapid decompensation Time Spent With Patient Time: Total time managing care of this patient today ____ minutes.
[2024-07-21 20:00] VITALS: BP 137/64; PULSE 70; RESP 16; TEMP 36.6; O2SAT 98
[2024-07-21] MEDS: QUEtiapine Fumarate 200 MG TABLET PO (20:02)
[2024-07-21] MEDS: Divalproex Sodium ER 250 MG TAB.ER.24H 750 MG PO (20:02)
[2024-07-22 08:00] VITALS: BP 94/59; PULSE 76; RESP 16; TEMP 36.4; O2SAT 96
[2024-07-22] MEDS: Famotidine 20 MG TABLET PO (08:14)
[2024-07-22] MEDS: Docusate Sodium 100 MG CAPSULE 200 MG PO ×2 (08:14→20:44)
[2024-07-22] MEDS: Benztropine Mesylate 0.5 MG TABLET PO ×2 (08:14→20:43)
[2024-07-22 08:16] VITALS: BP 94/59
--- NOTE | 2024-07-22 13:08 | HO.PSYCHPN ---
Subjective Subjective Date of Service: 07/22/24 Reason For Visit: Psychosis Interim History: Met with patient; discussed with team Patient reports that she is doing okay; agrees to continue with ECT however says she discussed with the other doctor that will only be 2 times a week. Some hypotension today, no symptoms, lisinopril held Patient remains in good behavioral and impulse control Mental Status Exam Mental Status Exam Patient Appearance: Well Grooomed and Appropriate Patient Orientation: Person and Situation Level of Consciousness: Awake and Appropriate Patient Behavior: Appropriate, Passive and Good Eye Contact Mood Description: Calm ('OK ) Affect Description: Constricted Patient Cognition Impaired: Yes Ability to Follow Directions: Good Speech Pattern: Clear Hallucinations: None Delusions: Not Present Thought Process: Distracted and Slowed Thinking Thought Content: positive for [place] and positive for Poverty of Content Judgement: Fair Diagnostics Vital Signs (24Hr): Vital Signs - 24 hr 07/21/24 20:00 07/22/24 08:00 07/22/24 08:16 Temperature 97.8 F 97.6 F Pulse Rate 70 76 Respiratory Rate 16 16 Blood Pressure 137/64 94/59 L 94/59 L Pulse Oximetry 98 96 Oxygen Delivery Method Room Air Room Air BMI result Body Mass Index 24.2 Labs 07/12/24 07:54 07/12/24 07:54 Imaging Radiology Impressions: ITS Impressions Head CT 05/16/24 14:30 IMPRESSION: There are no acute bleeds or territorial infarcts. No masses are demonstrated. Brain parenchymal attenuation is unremarkable. Medications Medications Current Medications Acetaminophen (Acetaminophen 325 Mg Tablet) 650 mg PO Q6H PRN PRN Reason: Headache/Pain Mild Scale (1-3) Last Admin: 07/04/24 10:04 Dose: 650 mg Al Hydroxide/Mg Hydroxide (Magnesium Hydrox/Alum Hydrox 30 Ml Oral.Susp) 30 ml PO Q6H PRN PRN Reason: Heartburn/Nausea Aripiprazole (Aripiprazole Er 400 Mg Suser.Syr) 400 mg IM Q30D [facility] Last Admin: 07/04/24 15:17 Dose: 400 mg Benztropine Mesylate (Benztropine Mesylate 0.5 Mg Tablet) 0.5 mg PO BID [facility] Last Admin: 07/22/24 08:14 Dose: 0.5 mg Bisacodyl (Bisacodyl 10 Mg Supp.Rect) 10 mg [place] DAILY PRN PRN Reason: Constipation Divalproex Sodium (Divalproex Sodium Er 250 Mg Tab.Er.24h) 750 mg PO BEDTIME SALLY Last Admin: 07/21/24 20:02 Dose: 750 mg Docusate Sodium (Docusate Sodium 100 Mg Capsule) 200 mg PO BID SALLY Last Admin: 07/22/24 08:14 Dose: 200 mg Famotidine (Famotidine 20 Mg Tablet) 20 mg PO DAILY [facility] Last Admin: 07/22/24 08:14 Dose: 20 mg Haloperidol (Haloperidol 5 Mg Tablet) 5 mg PO Q6H PRN PRN Reason: Psychosis Last Admin: 06/25/24 13:27 Dose: 5 mg Haloperidol Lactate (Haloperidol Lactate 5 Mg/Ml Vial) 5 mg IM TID PRN PRN Reason: Refusal antipsychotics Last Admin: 06/27/24 22:06 Dose: 5 mg Lisinopril (Lisinopril 2.5 Mg Tablet) 2.5 mg PO DAILY [facility]; Protocol Last Admin: 07/22/24 08:16 Dose: Not Given Lorazepam (Lorazepam 1 Mg Tablet) 2 mg PO TID PRN PRN Reason: agitation Last Admin: 06/24/24 15:19 Dose: 2 mg Magnesium Hydroxide (Milk Of Magnesia 30 Ml Oral.Susp) 30 ml PO DAILY PRN PRN Reason: Constipation Last Admin: 07/13/24 21:10 Dose: 30 ml Naloxone HCl (Naloxone Hcl 0.4 Mg/Ml Vial) 0.04 mg IVPUSH Q5M PRN PRN Reason: Excessive sedation or RR < 8 Ondansetron HCl (Ondansetron Odt 4 Mg Tab.Rapdis) 8 mg TRANSLINGU Q8H PRN PRN Reason: Nausea and Vomiting Last Admin: 05/26/24 11:02 Dose: 8 mg Polyethylene Glycol (Polyethylene Glycol 3350 17 Gm Powd.Pack) 17 gm PO DAILY PRN PRN Reason: constipation Last Admin: 05/15/24 17:41 Dose: 17 gm Quetiapine Fumarate (Quetiapine Fumarate 200 Mg Tablet) 200 mg PO BEDTIME [facility] Last Admin: 07/21/24 20:02 Dose: 200 mg Sodium Biphosphate/Sodium Phosphate (Sodium Phosphate,[place]-Dibasic 133 Ml Enema) 133 ml [place] ONCE PRN PRN Reason: severe constipation Last Admin: 05/13/24 18:19 Dose: 133 ml Trazodone HCl (Trazodone Hcl 50 Mg Tablet) 50 mg PO BEDTIME MRX1 PRN PRN Reason: Insomnia Last Admin: 07/16/24 20:31 Dose: 50 mg Allergies Allergies Allergy/AdvReac Type Severity Reaction Status Date / Time No Known Allergies Allergy Verified 05/04/24 15:04 Assessment & Plan Assessment & Plan (1) Bipolar 1 disorder: Status: Acute Code(s): F31.9 - Bipolar disorder, unspecified Plan The patient is a 74-year-old female[place] [facility] , mother of adult children with a past history of bipolar disorder who responded fairly well with ECT in the past. Historically, she had catatonia that responded very well with ECT. Currently she was admitted for increased psychosis, impulsive behavior and manic symptoms. We tried to give her Abilify Maintena 400 mg with limited results so we started ECT. Hospital course: 07/21 continue treatment plan 07/22 Patient reports that she is doing okay; agrees to continue with ECT however says she discussed with the other doctor that will only be 2 times a week. Some hypotension today, no symptoms, lisinopril held Patient remains in good behavioral and impulse control Plan 1. Continue with Abilify Maintena 400 mg IM monthly. 2. Continue with Depakote 750 p.o. daily. 3. Continue with ECT. 4. Start working for disposition. Patient educated on: diagnosis and ECT Informed Consent: understands and further education needed Reason for continued inpatient stay Substantial Risk for: rapid decompensation Time Spent With Patient Time: Total time managing care of this patient today ____ minutes.
[2024-07-22 20:00] VITALS: BP 128/66; PULSE 70; RESP 16; TEMP 36.8; O2SAT 96
[2024-07-22] MEDS: Divalproex Sodium ER 250 MG TAB.ER.24H 750 MG PO (20:43)
[2024-07-22] MEDS: QUEtiapine Fumarate 200 MG TABLET PO (20:44)
[2024-07-23] VITALS (11 sets, daily range): BP systolic 95–137; BP diastolic 54–89; PULSE 60–79; RESP 16–18; TEMP 36.1–36.6; O2SAT 94–98
--- NOTE | 2024-07-23 06:50 | P.CONAN_ITS ---
[facility] Active Problems Active Problems: All Active Problems Dementia (Acute) Bipolar 1 disorder (Acute) Past Medical History Functional capacity: independent ambulation Family History Family history of problems with anesthesia: No Surgical History History of Problems with Anesthesia: No Social History Social History Household Members: Children Housing: House Patient Tobacco Use Status: Never used Tobacco Smoked in Last 30 Days: No Use of substances other than those prescribed or required for medical reasons: No Currently Displaying Signs/Symptoms of Drug Intoxication Withdrawal: No Have you been hit, kicked, punched, or otherwise hurt by someone within the past year? If so, by whom?: No Do you feel safe in your current relationship?: No Current Relationship Is there a partner from a previous relationship who is making you feel unsafe now?: No Are you made to feel afraid or neglected: No Advance Directives: No Advance Directives Information Provided: No Do you have thoughts of harming others: None Do you have a plan to hurt others: No Plan Recently lost weight without trying: No Nutrition Risks: No Nutritional Risk Patient : No : No Sexual orientation: Straight/Heterosexual Meds Allergies Allergy/AdvReac Type Severity Reaction Status Date / Time No Known Allergies Allergy Verified 05/04/24 15:04 Active Medications: Current Medications Acetaminophen (Acetaminophen 325 Mg Tablet) 650 mg PO Q6H PRN PRN Reason: Headache/Pain Mild Scale (1-3) Last Admin: 07/04/24 10:04 Dose: 650 mg Al Hydroxide/Mg Hydroxide (Magnesium Hydrox/Alum Hydrox 30 Ml Oral.Susp) 30 ml PO Q6H PRN PRN Reason: Heartburn/Nausea Aripiprazole (Aripiprazole Er 400 Mg Suser.Syr) 400 mg IM Q30D [facility] Last Admin: 07/04/24 15:17 Dose: 400 mg Benztropine Mesylate (Benztropine Mesylate 0.5 Mg Tablet) 0.5 mg PO BID [facility] Last Admin: 07/22/24 20:43 Dose: 0.5 mg Bisacodyl (Bisacodyl 10 Mg Supp.Rect) 10 mg [place] DAILY PRN PRN Reason: Constipation Divalproex Sodium (Divalproex Sodium Er 250 Mg Tab.Er.24h) 750 mg PO BEDTIME [facility] Last Admin: 09/22/24 20:43 Dose: 750 mg Docusate Sodium (Docusate Sodium 100 Mg Capsule) 200 mg PO BID [facility] Last Admin: 07/22/24 20:44 Dose: 200 mg Famotidine (Famotidine 20 Mg Tablet) 20 mg PO DAILY [facility] Last Admin: 07/22/24 08:14 Dose: 20 mg Haloperidol (Haloperidol 5 Mg Tablet) 5 mg PO Q6H PRN PRN Reason: Psychosis Last Admin: 06/25/24 13:27 Dose: 5 mg Haloperidol Lactate (Haloperidol Lactate 5 Mg/Ml Vial) 5 mg IM TID PRN PRN Reason: Refusal antipsychotics Last Admin: 06/27/24 22:06 Dose: 5 mg Lactated Ringer's (Lr) 1,000 mls @ 50 mls/hr IVCONT .Q20H [facility] Lisinopril (Lisinopril 2.5 Mg Tablet) 2.5 mg PO DAILY [facility]; Protocol Last Admin: 07/22/24 08:16 Dose: Not Given Lorazepam (Lorazepam 1 Mg Tablet) 2 mg PO TID PRN PRN Reason: agitation Last Admin: 06/24/24 15:19 Dose: 2 mg Magnesium Hydroxide (Milk Of Magnesia 30 Ml Oral.Susp) 30 ml PO DAILY PRN PRN Reason: Constipation Last Admin: 07/13/24 21:10 Dose: 30 ml Naloxone HCl (Naloxone Hcl 0.4 Mg/Ml Vial) 0.04 mg IVPUSH Q5M PRN PRN Reason: Excessive sedation or RR < 8 Ondansetron HCl (Ondansetron Odt 4 Mg Tab.Rapdis) 8 mg TRANSLINGU Q8H PRN PRN Reason: Nausea and Vomiting Last Admin: 05/26/24 11:02 Dose: 8 mg Polyethylene Glycol (Polyethylene Glycol 3350 17 Gm Powd.Pack) 17 gm PO DAILY PRN PRN Reason: constipation Last Admin: 05/15/24 17:41 Dose: 17 gm Quetiapine Fumarate (Quetiapine Fumarate 200 Mg Tablet) 200 mg PO BEDTIME [facility] Last Admin: 07/22/24 20:44 Dose: 200 mg Sodium Biphosphate/Sodium Phosphate (Sodium Phosphate,[place]-Dibasic 133 Ml Enema) 133 ml [place] ONCE PRN PRN Reason: severe constipation Last Admin: 05/13/24 18:19 Dose: 133 ml Trazodone HCl (Trazodone Hcl 50 Mg Tablet) 50 mg PO BEDTIME MRX1 PRN PRN Reason: Insomnia Last Admin: 07/16/24 20:31 Dose: 50 mg Home Medications ?Medication ?Instructions ?Recorded ?Confirmed ?Last Taken ?Type benztropine 0.5 mg tablet 0.5 mg PO BEDTIME 05/04/24 05/04/24 Unknown History divalproex 250 mg tablet,extended 250 mg PO BEDTIME 05/04/24 05/04/24 Unknown History release 24 hr lamotrigine 100 mg tablet 100 mg PO BEDTIME 05/04/24 05/04/24 Unknown History lisinopril 5 mg tablet 2.5 mg PO DAILY 05/04/24 05/04/24 Unknown History quetiapine 100 mg tablet 100 mg PO DAILY 05/04/24 05/04/24 Unknown History quetiapine 300 mg tablet 300 mg PO BEDTIME 05/04/24 05/04/24 Unknown History quetiapine 50 mg tablet 50 mg PO BID PRN Agitation 05/04/24 05/04/24 Unknown History Exam Height,Weight and Vital Signs: Height 5 ft Weight 56.245 kg Last Vital Signs Temp 97.1 F 07/23/24 05:50 Pulse 60 07/23/24 05:50 Resp 18 07/23/24 05:50 BP 95/54 L 07/23/24 05:50 Pulse Ox 94 07/23/24 05:50 O2 Del Method Room Air 07/23/24 05:48 O2 Flow Rate 2 07/20/24 10:00 Pertinent Lab Results Pertinent Lab Results: Laboratory Tests 05/04/24 05/05/24 05/05/24 15:03 12:44 13:08 WBC 4.9 RBC 4.49 Hgb 13.4 Hct 40.3 MCV 89.8 MCH 29.8 MCHC 33.3 RDW 13.4 Plt Count 215 MPV 9.1 L Immature Gran % (Auto) 0.2 Neut % (Auto) 51.7 Lymph % (Auto) 32.9 [place] % (Auto) 11.1 H Eos % (Auto) 3.5 Baso % (Auto) 0.6 Lymph # (Auto) 1.6 [place] # (Auto) 0.5 Eos # (Auto) 0.2 Baso # (Auto) 0.0 Abs Immat Gran (auto) 0.01 Absolute Neuts (auto) 2.5 Absolute Nucleated RBC 0.000 Nucleated RBC % (auto) 0.0 Hold Purple Top Sodium 141 Potassium 4.0 Chloride 102 Carbon Dioxide 31 H Anion Gap 12 BUN 19 H Creatinine 1.08 Estim Creat Clear Calc 37.5 Estimated GFR 50 Random Glucose 104 Fasting Glucose Calcium 9.4 Magnesium 2.3 Total Bilirubin 0.6 Direct Bilirubin AST 18 ALT 13 Alkaline Phosphatase 122 H Ammonia Total Protein 7.5 Albumin 4.2 Triglycerides Cholesterol LDL Cholesterol, Calc HDL Cholesterol TSH 1.25 Hold Yellow Top See Note Urine Color Urine Appearance Urine pH Ur Specific [place] Urine Protein Urine Glucose (UA) Urine Ketones Urine Blood Urine Nitrite Ur Leukocyte Esterase Urine RBC Urine WBC Ur Squamous Epith Cells Urine Bacteria Hyaline Casts Salicylates < 5.0 L Urine Opiates Screen Ur Buprenorphine Scrn Ur Oxycodone Screen Urine Methadone Screen Urine Fentanyl Screen Acetaminophen < 3 Ur Barbiturates Screen Valproic Acid < 12.5 L Ur Phencyclidine Scrn Ur Amphetamines Screen U Benzodiazepines Scrn Urine Cocaine Screen U Marijuana (THC) Screen Ethyl Alcohol < 10 05/05/24 05/09/24 05/16/24 13:16 08:10 20:12 WBC RBC Hgb Hct MCV MCH MCHC RDW Plt Count MPV Immature Gran % (Auto) Neut % (Auto) Lymph % (Auto) [place] % (Auto) Eos % (Auto) Baso % (Auto) Lymph # (Auto) [place] # (Auto) Eos # (Auto) Baso # (Auto) Abs Immat Gran (auto) Absolute Neuts (auto) Absolute Nucleated RBC Nucleated RBC % (auto) Hold Purple Top SEE NOTE Sodium 138 143 Potassium 3.8 4.1 Chloride 101 104 Carbon Dioxide 30 H 27 Anion Gap 11 L 16 BUN 27 H 26 H Creatinine 1.24 0.90 Estim Creat Clear Calc 32.6 44.6 Estimated GFR 43 > 60 Random Glucose 130 H Fasting Glucose 112 H Calcium 9.3 9.2 Magnesium Total Bilirubin 0.9 0.6 Direct Bilirubin 0.2 AST 18 15 ALT 12 10 Alkaline Phosphatase 100 96 Ammonia 25 Total Protein 7.3 6.7 Albumin 4.1 3.8 Triglycerides 61 Cholesterol 157 LDL Cholesterol, Calc 100 H HDL Cholesterol 45 TSH Hold Yellow Top Urine Color Yellow Urine Appearance Clear Urine pH 7.0 Ur Specific [place] 1.020 Urine Protein Negative Urine Glucose (UA) Negative Urine Ketones Negative Urine Blood Negative Urine Nitrite Negative Ur Leukocyte Esterase Moderate (2+) H Urine RBC 0-2 Urine WBC 0-5 Ur Squamous Epith Cells 0-2 Urine Bacteria None Seen Hyaline Casts 0-2 Salicylates Urine Opiates Screen Not Detected Ur Buprenorphine Scrn Not Detected Ur Oxycodone Screen Not Detected Urine Methadone Screen Not Detected Urine Fentanyl Screen Not Detected Acetaminophen Ur Barbiturates Screen Not Detected Valproic Acid 50.2 Ur Phencyclidine Scrn Not Detected Ur Amphetamines Screen Not Detected U Benzodiazepines Scrn Not Detected Urine Cocaine Screen Not Detected U Marijuana (THC) Screen Not Detected Ethyl Alcohol 05/21/24 05/22/24 05/24/24 08:09 08:03 18:05 WBC RBC Hgb Hct MCV MCH MCHC RDW Plt Count MPV Immature Gran % (Auto) Neut % (Auto) Lymph % (Auto) [place] % (Auto) Eos % (Auto) Baso % (Auto) Lymph # (Auto) [place] # (Auto) Eos # (Auto) Baso # (Auto) Abs Immat Gran (auto) Absolute Neuts (auto) Absolute Nucleated RBC Nucleated RBC % (auto) Hold Purple Top Sodium 143 Potassium 3.9 Chloride 105 Carbon Dioxide 29 Anion Gap 13 BUN 31 H Creatinine 1.11 Estim Creat Clear Calc 36.0 Estimated GFR 48 Random Glucose Fasting Glucose 81 Calcium 9.5 Magnesium Total Bilirubin 0.5 Direct Bilirubin AST 17 ALT 9 Alkaline Phosphatase 89 Ammonia 20 Total Protein 7.1 Albumin 4.1 Triglycerides Cholesterol LDL Cholesterol, Calc HDL Cholesterol TSH Hold Yellow Top Urine Color Urine Appearance Urine pH Ur Specific [place] Urine Protein Urine Glucose (UA) Urine Ketones Urine Blood Urine Nitrite Ur Leukocyte Esterase Urine RBC Urine WBC Ur Squamous Epith Cells Urine Bacteria Hyaline Casts Salicylates Urine Opiates Screen Ur Buprenorphine Scrn Ur Oxycodone Screen Urine Methadone Screen Urine Fentanyl Screen Acetaminophen Ur Barbiturates Screen Valproic Acid 142.5 H* 142.8 H* 113.4 H* Ur Phencyclidine Scrn Ur Amphetamines Screen U Benzodiazepines Scrn Urine Cocaine Screen U Marijuana (THC) Screen Ethyl Alcohol 05/27/24 05/30/24 07/12/24 10:04 09:29 07:54 WBC 5.0 RBC 3.93 L Hgb 11.9 L Hct 35.5 L MCV 90.3 MCH 30.3 MCHC 33.5 RDW 14.2 Plt Count 161 D MPV 10.1 Immature Gran % (Auto) 0.8 H Neut % (Auto) 46.9 Lymph % (Auto) 42.1 H [place] % (Auto) 8.4 Eos % (Auto) 1.2 Baso % (Auto) 0.6 Lymph # (Auto) 2.1 [place] # (Auto) 0.4 Eos # (Auto) 0.1 Baso # (Auto) 0.0 Abs Immat Gran (auto) 0.04 H Absolute Neuts (auto) 2.3 Absolute Nucleated RBC 0.000 Nucleated RBC % (auto) 0.0 Hold Purple Top Sodium 142 Potassium 3.6 Chloride 106 Carbon Dioxide 29 Anion Gap 11 L BUN 22 H Creatinine 0.88 Estim Creat Clear Calc 41.5 Estimated GFR > 60 Random Glucose 118 H Fasting Glucose Calcium 8.6 D Magnesium Total Bilirubin Direct Bilirubin AST ALT Alkaline Phosphatase Ammonia Total Protein Albumin Triglycerides Cholesterol LDL Cholesterol, Calc HDL Cholesterol TSH Hold Yellow Top Urine Color Urine Appearance Urine pH Ur Specific [place] Urine Protein Urine Glucose (UA) Urine Ketones Urine Blood Urine Nitrite Ur Leukocyte Esterase Urine RBC Urine WBC Ur Squamous Epith Cells Urine Bacteria Hyaline Casts Salicylates Urine Opiates Screen Ur Buprenorphine Scrn Ur Oxycodone Screen Urine Methadone Screen Urine Fentanyl Screen Acetaminophen Ur Barbiturates Screen Valproic Acid 116.9 H* 114.7 H* 65.8 Ur Phencyclidine Scrn Ur Amphetamines Screen U Benzodiazepines Scrn Urine Cocaine Screen U Marijuana (THC) Screen Ethyl Alcohol Airway Mallampati Class: II (edentulous top) TM Dist: >3cm Neck ROM: Full Heart: rrr Lungs: cta Assessment and Plan Assessment Anesthesia Assessment: Anesthesia Plan Discussed and Chart Reviewed Final Anesthetic Review Family History of Problems with Anesthesia: No History of Problems with Anesthesia: No NPO: Yes ASA Class: III Final Preanesthetic Review: No Changes in Pt Med Stat, Meds/Allgs Chart Reviewed and Consent Obtained/Reviewed Patient Risk: Intermediate Procedure Risk: Intermediate Anesthetic Plan Anesthetic Plan: GA Disposition: Standard PACU
--- NOTE | 2024-07-23 07:07 | MHC.SHP ---
Pre-Procedural Eval Section A - 24 Hr Update-Section A only Date of Service: 07/23/24 The patient is an INPATIENT: Yes Changes since office visit: Yes Patient answered all questions; No Cold of Flu in the past 2 weeks, No New Medical Problems and No Changes in Medication The patient has been examined within 24 hours of the surgical procedure. The History & Physical has been completed within 30 days and I have reviewed it.: Yes Section B - Complete if H&P > 30 days Chief Complaint: Psychosis Allergies: Allergies Allergy/AdvReac Type Severity Reaction Status Date / Time No Known Allergies Allergy Verified 05/04/24 15:04 Plan I have reviewed the history and physical and performed a pertinent physical examination on my patient. No changes have occurred unless specified. Time Spent With Patient Time: Total time managing care of this patient today ____ minutes.
--- NOTE | 2024-07-23 07:10 | HO.ECTPROC ---
ECT Procedure Note Diagnosis/Treatment Date of Service: 07/23/24 Diagnosis: Bipolar disorder Interval Clinical Notes: increasingly stable periods of memory difficulty change to rul and 2 x wk monitor cognition Time: Total time managing care of this patient today ____ minutes. ECT Settings Device: THYMATRON DGx Electrode Placement: Right Unilateral Program/Pulse Width: 0.50 Energy Percent: 100 Seizure Duration By EEG (in seconds): 59 Medications Administration General Anesthetic: Etomidate (10) Muscle Relaxant: Succinylcholine (80) Ancillary Medications Analgesics: Torodol - Pre ECT Miscillaneous Medications: Propofol (30) Airway Management Airway Management: Bag Mask Ventilation Treatment Recommendations No Changes Recommended: No change Program/Pulse Width: 0.25 Pt Tolerated Procedure w/o Issue: Yes
[2024-07-23] MEDS: Acetaminophen 325 MG TABLET 650 MG PO (09:32)
[2024-07-23] MEDS: Famotidine 20 MG TABLET PO (09:33)
[2024-07-23] MEDS: lisinopriL 2.5 MG TABLET PO (09:33)
[2024-07-23] MEDS: Docusate Sodium 100 MG CAPSULE 200 MG PO ×2 (09:33→20:29)
[2024-07-23] MEDS: Benztropine Mesylate 0.5 MG TABLET PO ×2 (09:33→20:29)
--- NOTE | 2024-07-23 14:07 | P.PNPSI_ITS ---
Subjective Subjective Date of Service: 07/23/24 Reason For Visit: Psychosis Subjective Notes: Conditional Voluntary Interim History: The nursing staff reported the patient had been pleasant cooperative, more awake and alert. Today she had ECT right unilateral with less side effects. On interview the patient denies new symptoms, we are going to start working on discharge planning. Mental Status Exam Mental Status Exam Patient Appearance: Well Grooomed and Appropriate Patient Orientation: Person and Situation Level of Consciousness: Awake and Appropriate Patient Behavior: Guarded and Passive Mood Description: Calm Affect Description: Constricted Patient Cognition Impaired: Yes Ability to Follow Directions: Good Speech Pattern: Clear Hallucinations: None Delusions: Not Present Thought Process: Distracted and Slowed Thinking Thought Content: positive for [place] Judgement: Fair Diagnostics Vital Signs (24Hr): Vital Signs - 24 hr 07/22/24 20:00 07/23/24 05:48 07/23/24 05:50 Temperature 98.3 F 97.1 F 97.1 F Pulse Rate 70 60 60 Respiratory Rate 16 18 18 Blood Pressure 128/66 95/54 L 95/54 L Pulse Oximetry 96 94 94 Oxygen Delivery Method Room Air Room Air Oxygen Flow Rate 07/23/24 07:01 07/23/24 07:27 07/23/24 07:32 Temperature 97 F 97.8 F Pulse Rate 60 68 74 Respiratory Rate 16 16 16 Blood Pressure 116/63 133/66 118/70 Pulse Oximetry 96 97 96 Oxygen Delivery Method Room Air Nasal Cannula Nasal Cannula Oxygen Flow Rate 2 2 07/23/24 07:37 07/23/24 07:42 07/23/24 07:57 Temperature Pulse Rate 79 76 77 Respiratory Rate 16 16 16 Blood Pressure 137/77 131/75 129/73 Pulse Oximetry 96 96 97 Oxygen Delivery Method Nasal Cannula Nasal Cannula Room Air Oxygen Flow Rate 2 2 07/23/24 08:12 07/23/24 08:54 Temperature 97.8 F 96.9 F Pulse Rate 74 67 Respiratory Rate 16 16 Blood Pressure 124/89 135/71 Pulse Oximetry 97 97 Oxygen Delivery Method Room Air Room Air Oxygen Flow Rate BMI result Body Mass Index 24.2 Labs 07/12/24 07:54 07/12/24 07:54 Imaging Radiology Impressions: ITS Impressions Head CT 05/16/24 14:30 IMPRESSION: There are no acute bleeds or territorial infarcts. No masses are demonstrated. Brain parenchymal attenuation is unremarkable. Medications Medications Current Medications Acetaminophen (Acetaminophen 325 Mg Tablet) 650 mg PO Q6H PRN PRN Reason: Headache/Pain Mild Scale (1-3) Last Admin: 07/23/24 09:32 Dose: 650 mg Al Hydroxide/Mg Hydroxide (Magnesium Hydrox/Alum Hydrox 30 Ml Oral.Susp) 30 ml PO Q6H PRN PRN Reason: Heartburn/Nausea Aripiprazole (Aripiprazole Er 400 Mg Suser.Syr) 400 mg IM Q30D [facility] Last Admin: 07/04/24 15:17 Dose: 400 mg Benztropine Mesylate (Benztropine Mesylate 0.5 Mg Tablet) 0.5 mg PO BID [facility] Last Admin: 07/23/24 09:33 Dose: 0.5 mg Bisacodyl (Bisacodyl 10 Mg Supp.Rect) 10 mg [place] DAILY PRN PRN Reason: Constipation Divalproex Sodium (Divalproex Sodium Er 250 Mg Tab.Er.24h) 750 mg PO BEDTIME [facility] Last Admin: 07/22/24 20:43 Dose: 750 mg Docusate Sodium (Docusate Sodium 100 Mg Capsule) 200 mg PO BID [facility] Last Admin: 07/23/24 09:33 Dose: 200 mg Famotidine (Famotidine 20 Mg Tablet) 20 mg PO DAILY [facility] Last Admin: 07/23/24 09:33 Dose: 20 mg Haloperidol (Haloperidol 5 Mg Tablet) 5 mg PO Q6H PRN PRN Reason: Psychosis Last Admin: 06/25/24 13:27 Dose: 5 mg Haloperidol Lactate (Haloperidol Lactate 5 Mg/Ml Vial) 5 mg IM TID PRN PRN Reason: Refusal antipsychotics Last Admin: 06/27/24 22:06 Dose: 5 mg Lisinopril (Lisinopril 2.5 Mg Tablet) 2.5 mg PO DAILY [facility]; Protocol Last Admin: 07/23/24 09:33 Dose: 2.5 mg Lorazepam (Lorazepam 1 Mg Tablet) 2 mg PO TID PRN PRN Reason: agitation Last Admin: 06/24/24 15:19 Dose: 2 mg Magnesium Hydroxide (Milk Of Magnesia 30 Ml Oral.Susp) 30 ml PO DAILY PRN PRN Reason: Constipation Last Admin: 07/13/24 21:10 Dose: 30 ml Naloxone HCl (Naloxone Hcl 0.4 Mg/Ml Vial) 0.04 mg IVPUSH Q5M PRN PRN Reason: Excessive sedation or RR < 8 Naloxone HCl (Naloxone Hcl 0.4 Mg/Ml Vial) 0.04 mg IVPUSH Q5M PRN PRN Reason: Excessive sedation or RR < 8 Naloxone HCl (Naloxone Hcl 0.4 Mg/Ml Vial) 0.04 mg IVPUSH Q5M PRN PRN Reason: Excessive sedation or RR < 8 Ondansetron HCl (Ondansetron Odt 4 Mg Tab.Rapdis) 8 mg TRANSLINGU Q8H PRN PRN Reason: Nausea and Vomiting Last Admin: 05/26/24 11:02 Dose: 8 mg Polyethylene Glycol (Polyethylene Glycol 3350 17 Gm Powd.Pack) 17 gm PO DAILY PRN PRN Reason: constipation Last Admin: 05/15/24 17:41 Dose: 17 gm Quetiapine Fumarate (Quetiapine Fumarate 200 Mg Tablet) 200 mg PO BEDTIME [facility] Last Admin: 07/22/24 20:44 Dose: 200 mg Sodium Biphosphate/Sodium Phosphate (Sodium Phosphate,[place]-Dibasic 133 Ml Enema) 133 ml RI ONCE PRN PRN Reason: severe constipation Last Admin: 05/13/24 18:19 Dose: 133 ml Trazodone HCl (Trazodone Hcl 50 Mg Tablet) 50 mg PO BEDTIME MRX1 PRN PRN Reason: Insomnia Last Admin: 07/16/24 20:31 Dose: 50 mg Allergies Allergies Allergy/AdvReac Type Severity Reaction Status Date / Time No Known Allergies Allergy Verified 05/04/24 15:04 Assessment & Plan Assessment & Plan (1) Bipolar 1 disorder: Status: Acute Code(s): F31.9 - Bipolar disorder, unspecified Plan The patient is a 74-year-old female, from [facility], , mother of adult children with a past history of bipolar disorder who responded fairly well with ECT in the past. Historically, she had catatonia that responded very well with ECT. Currently she was admitted for increased psychosis, impulsive behavior and manic symptoms. We tried to give her Abilify Maintena 400 mg with limited results so we started ECT. Hospital course: 07/21 continue treatment plan 07/22 Patient reports that she is doing okay; agrees to continue with ECT however says she discussed with the other doctor that will only be 2 times a week. Some hypotension today, no symptoms, lisinopril held Patient remains in good behavioral and impulse control Plan 1. Continue with Abilify Maintena 400 mg IM monthly. 2. Continue with Depakote 750 p.o. daily. 3. Continue with ECT. 4. Start working for disposition. Reason for continued inpatient stay Substantial Risk for: inability to function, rapid decompensation and med/psych decompensation Time Spent With Patient Time: Total time managing care of this patient today __20__ minutes.
[2024-07-23] MEDS: Divalproex Sodium ER 250 MG TAB.ER.24H 750 MG PO (20:29)
[2024-07-23] MEDS: QUEtiapine Fumarate 200 MG TABLET PO (20:29)
[2024-07-24 08:00] VITALS: BP 130/73; PULSE 84; RESP 17; TEMP 36.2; O2SAT 96
--- NOTE | 2024-07-24 08:18 | HO.POSTANES ---
Post Anesthesia Evaluation Post Anesthesia Evaluation Date of Service: 07/23/24 Anesthesia: General Mental Status: Awake Pain Control: Satisfactory Nausea/Vomiting: None Hydration: Adequate Anesthesia-Related Issues: No Anes. Related Issues
[2024-07-24] MEDS: Benztropine Mesylate 0.5 MG TABLET PO ×2 (08:23→20:47)
[2024-07-24] MEDS: Famotidine 20 MG TABLET PO (08:23)
[2024-07-24] MEDS: Docusate Sodium 100 MG CAPSULE 200 MG PO ×2 (08:23→20:46)
[2024-07-24] MEDS: lisinopriL 2.5 MG TABLET PO (08:23)
--- NOTE | 2024-07-24 13:27 | HO.PSYCHPN ---
Subjective Subjective Date of Service: 07/24/24 Reason For Visit: Psychosis Subjective Notes: Conditional Voluntary Interim History: The nursing staff reported the patient had been pleasant cooperative, slightly confused. We are now doing ECT twice a week since the patient gets very confused she slept 8 hours. The social contact worker reported that she was referred to [facility]. On interview the patient denies new symptoms, waiting for placement. Mental Status Exam Mental Status Exam Patient Appearance: Well Grooomed and Appropriate Patient Orientation: Person and Situation Level of Consciousness: Awake and Appropriate Patient Behavior: Guarded and Passive Mood Description: Withdrawn Affect Description: Constricted Patient Cognition Impaired: Yes Ability to Follow Directions: Good Speech Pattern: Clear Hallucinations: None Delusions: Not Present Thought Process: Distracted and Slowed Thinking Thought Content: positive for [place] and positive for Poverty of Content Judgement: Fair Diagnostics Vital Signs (24Hr): Vital Signs - 24 hr 07/23/24 20:00 07/24/24 08:00 Temperature 97.1 F 97.1 F Pulse Rate 66 84 Respiratory Rate 18 17 Blood Pressure 113/59 L 130/73 Pulse Oximetry 98 96 Oxygen Delivery Method Room Air Room Air BMI result Body Mass Index 24.2 Labs 07/12/24 07:54 07/12/24 07:54 Imaging Radiology Impressions: ITS Impressions Head CT 05/16/24 14:30 IMPRESSION: There are no acute bleeds or territorial infarcts. No masses are demonstrated. Brain parenchymal attenuation is unremarkable. Medications Medications Current Medications Acetaminophen (Acetaminophen 325 Mg Tablet) 650 mg PO Q6H PRN PRN Reason: Headache/Pain Mild Scale (1-3) Last Admin: 07/23/24 09:32 Dose: 650 mg Al Hydroxide/Mg Hydroxide (Magnesium Hydrox/Alum Hydrox 30 Ml Oral.Susp) 30 ml PO Q6H PRN PRN Reason: Heartburn/Nausea Aripiprazole (Aripiprazole Er 400 Mg Suser.Syr) 400 mg IM Q30D [facility] Last Admin: 07/04/24 15:17 Dose: 400 mg Benztropine Mesylate (Benztropine Mesylate 0.5 Mg Tablet) 0.5 mg PO BID [facility] Last Admin: 07/24/24 08:23 Dose: 0.5 mg Bisacodyl (Bisacodyl 10 Mg Supp.Rect) 10 mg [place] DAILY PRN PRN Reason: Constipation Divalproex Sodium (Divalproex Sodium Er 250 Mg Tab.Er.24h) 750 mg PO BEDTIME [facility] Last Admin: 07/23/24 20:29 Dose: 750 mg Docusate Sodium (Docusate Sodium 100 Mg Capsule) 200 mg PO BID [facility] Last Admin: 07/24/24 08:23 Dose: 200 mg Famotidine (Famotidine 20 Mg Tablet) 20 mg PO DAILY [facility] Last Admin: 07/24/24 08:23 Dose: 20 mg Haloperidol (Haloperidol 5 Mg Tablet) 5 mg PO Q6H PRN PRN Reason: Psychosis Last Admin: 06/25/24 13:27 Dose: 5 mg Haloperidol Lactate (Haloperidol Lactate 5 Mg/Ml Vial) 5 mg IM TID PRN PRN Reason: Refusal antipsychotics Last Admin: 06/27/24 22:06 Dose: 5 mg Lisinopril (Lisinopril 2.5 Mg Tablet) 2.5 mg PO DAILY [facility]; Protocol Last Admin: 07/24/24 08:23 Dose: 2.5 mg Lorazepam (Lorazepam 1 Mg Tablet) 2 mg PO TID PRN PRN Reason: agitation Last Admin: 06/24/24 15:19 Dose: 2 mg Magnesium Hydroxide (Milk Of Magnesia 30 Ml Oral.Susp) 30 ml PO DAILY PRN PRN Reason: Constipation Last Admin: 07/13/24 21:10 Dose: 30 ml Naloxone HCl (Naloxone Hcl 0.4 Mg/Ml Vial) 0.04 mg IVPUSH Q5M PRN PRN Reason: Excessive sedation or RR < 8 Naloxone HCl (Naloxone Hcl 0.4 Mg/Ml Vial) 0.04 mg IVPUSH Q5M PRN PRN Reason: Excessive sedation or RR < 8 Naloxone HCl (Naloxone Hcl 0.4 Mg/Ml Vial) 0.04 mg IVPUSH Q5M PRN PRN Reason: Excessive sedation or RR < 8 Ondansetron HCl (Ondansetron Odt 4 Mg Tab.Rapdis) 8 mg TRANSLINGU Q8H PRN PRN Reason: Nausea and Vomiting Last Admin: 05/26/24 11:02 Dose: 8 mg Polyethylene Glycol (Polyethylene Glycol 3350 17 Gm Powd.Pack) 17 gm PO DAILY PRN PRN Reason: constipation Last Admin: 05/15/24 17:41 Dose: 17 gm Quetiapine Fumarate (Quetiapine Fumarate 200 Mg Tablet) 200 mg PO BEDTIME [facility] Last Admin: 07/23/24 20:29 Dose: 200 mg Sodium Biphosphate/Sodium Phosphate (Sodium Phosphate,[place]-Dibasic 133 Ml Enema) 133 ml ND ONCE PRN PRN Reason: severe constipation Last Admin: 05/13/24 18:19 Dose: 133 ml Trazodone HCl (Trazodone Hcl 50 Mg Tablet) 50 mg PO BEDTIME MRX1 PRN PRN Reason: Insomnia Last Admin: 07/16/24 20:31 Dose: 50 mg Allergies Allergies Allergy/AdvReac Type Severity Reaction Status Date / Time No Known Allergies Allergy Verified 05/04/24 15:04 Assessment & Plan Assessment & Plan (1) Bipolar 1 disorder: Status: Acute Code(s): F31.9 - Bipolar disorder, unspecified Plan The patient is a 74-year-old female, from [facility], , mother of adult children with a past history of bipolar disorder who responded fairly well with ECT in the past. Historically, she had catatonia that responded very well with ECT. Currently she was admitted for increased psychosis, impulsive behavior and manic symptoms. We tried to give her Abilify Maintena 400 mg with limited results so we started ECT. Hospital course: 07/21 continue treatment plan 07/22 Patient reports that she is doing okay; agrees to continue with ECT however says she discussed with the other doctor that will only be 2 times a week. Some hypotension today, no symptoms, lisinopril held Patient remains in good behavioral and impulse control Plan 1. Continue with Abilify Maintena 400 mg IM monthly. 2. Continue with Depakote 750 p.o. daily. 3. Continue with ECT. 4. Start working for disposition. Reason for continued inpatient stay Substantial Risk for: inability to function, rapid decompensation and med/psych decompensation Time Spent With Patient Time: Total time managing care of this patient today __20__ minutes.
[2024-07-24 20:00] VITALS: BP 112/59; PULSE 70; RESP 16; TEMP 36.9; O2SAT 96
[2024-07-24] MEDS: Divalproex Sodium ER 250 MG TAB.ER.24H 750 MG PO (20:46)
[2024-07-24] MEDS: QUEtiapine Fumarate 200 MG TABLET PO (20:47)
[2024-07-25 06:07] VITALS: BP 113/57; PULSE 82; RESP 16; TEMP 36.3; O2SAT 95
[2024-07-25 09:10] VITALS: BP 109/64; PULSE 81; RESP 16; TEMP 36.2; O2SAT 98
[2024-07-25] MEDS: lisinopriL 2.5 MG TABLET PO (09:10)
[2024-07-25] MEDS: Famotidine 20 MG TABLET PO (09:10)
[2024-07-25] MEDS: Docusate Sodium 100 MG CAPSULE 200 MG PO ×2 (09:10→19:49)
[2024-07-25] MEDS: Benztropine Mesylate 0.5 MG TABLET PO ×2 (09:10→19:49)
--- NOTE | 2024-07-25 16:05 | HO.PSYCHPN ---
Subjective Subjective Date of Service: 07/25/24 Reason For Visit: Psychosis Subjective Notes: Conditional Voluntary Interim History: The nursing staff reported the patient had been fully compliant with treatment, no changes in her mental status. On interview the patient denies new symptoms. We are having ECT only twice a week since the patient is more confused. Mental Status Exam Mental Status Exam Patient Appearance: Well Grooomed and Appropriate Patient Orientation: Person and Situation Level of Consciousness: Awake Patient Behavior: Guarded and Passive Mood Description: Withdrawn and Constricted Affect Description: Calm Patient Cognition Impaired: Yes Ability to Follow Directions: Good Speech Pattern: Clear Hallucinations: None Delusions: Not Present Thought Process: Distracted and Linear Thought Content: positive for [place] and positive for Poverty of Content Judgement: Fair Diagnostics Vital Signs (24Hr): Vital Signs - 24 hr 07/24/24 20:00 07/25/24 06:07 07/25/24 09:10 Temperature 98.4 F 97.4 F Pulse Rate 70 82 Respiratory Rate 16 16 Blood Pressure 112/59 L 113/57 L 109/64 Pulse Oximetry 96 95 Oxygen Delivery Method Room Air 07/25/24 09:10 Temperature 97.1 F Pulse Rate 81 Respiratory Rate 16 Blood Pressure 109/64 Pulse Oximetry 98 Oxygen Delivery Method Room Air BMI result Body Mass Index 24.2 Labs 07/12/24 07:54 07/12/24 07:54 Imaging Radiology Impressions: ITS Impressions Head CT 05/16/24 14:30 IMPRESSION: There are no acute bleeds or territorial infarcts. No masses are demonstrated. Brain parenchymal attenuation is unremarkable. Medications Medications Current Medications Acetaminophen (Acetaminophen 325 Mg Tablet) 650 mg PO Q6H PRN PRN Reason: Headache/Pain Mild Scale (1-3) Last Admin: 07/23/24 09:32 Dose: 650 mg Al Hydroxide/Mg Hydroxide (Magnesium Hydrox/Alum Hydrox 30 Ml Oral.Susp) 30 ml PO Q6H PRN PRN Reason: Heartburn/Nausea Aripiprazole (Aripiprazole Er 400 Mg Suser.Syr) 400 mg IM Q30D [facility] Last Admin: 07/04/24 15:17 Dose: 400 mg Benztropine Mesylate (Benztropine Mesylate 0.5 Mg Tablet) 0.5 mg PO BID [facility] Last Admin: 07/25/24 09:10 Dose: 0.5 mg Bisacodyl (Bisacodyl 10 Mg Supp.Rect) 10 mg [place] DAILY PRN PRN Reason: Constipation Divalproex Sodium (Divalproex Sodium Er 250 Mg Tab.Er.24h) 750 mg PO BEDTIME [facility] Last Admin: 07/24/24 20:46 Dose: 750 mg Docusate Sodium (Docusate Sodium 100 Mg Capsule) 200 mg PO BID [facility] Last Admin: 07/25/24 09:10 Dose: 200 mg Famotidine (Famotidine 20 Mg Tablet) 20 mg PO DAILY [facility] Last Admin: 07/25/24 09:10 Dose: 20 mg Haloperidol (Haloperidol 5 Mg Tablet) 5 mg PO Q6H PRN PRN Reason: Psychosis Last Admin: 06/25/24 13:27 Dose: 5 mg Haloperidol Lactate (Haloperidol Lactate 5 Mg/Ml Vial) 5 mg IM TID PRN PRN Reason: Refusal antipsychotics Last Admin: 06/27/24 22:06 Dose: 5 mg Lisinopril (Lisinopril 2.5 Mg Tablet) 2.5 mg PO DAILY [facility]; Protocol Last Admin: 07/25/24 09:10 Dose: 2.5 mg Lorazepam (Lorazepam 1 Mg Tablet) 2 mg PO TID PRN PRN Reason: agitation Last Admin: 06/24/24 15:19 Dose: 2 mg Magnesium Hydroxide (Milk Of Magnesia 30 Ml Oral.Susp) 30 ml PO DAILY PRN PRN Reason: Constipation Last Admin: 07/13/24 21:10 Dose: 30 ml Naloxone HCl (Naloxone Hcl 0.4 Mg/Ml Vial) 0.04 mg IVPUSH Q5M PRN PRN Reason: Excessive sedation or RR < 8 Naloxone HCl (Naloxone Hcl 0.4 Mg/Ml Vial) 0.04 mg IVPUSH Q5M PRN PRN Reason: Excessive sedation or RR < 8 Naloxone HCl (Naloxone Hcl 0.4 Mg/Ml Vial) 0.04 mg IVPUSH Q5M PRN PRN Reason: Excessive sedation or RR < 8 Ondansetron HCl (Ondansetron Odt 4 Mg Tab.Rapdis) 8 mg TRANSLINGU Q8H PRN PRN Reason: Nausea and Vomiting Last Admin: 05/26/24 11:02 Dose: 8 mg Polyethylene Glycol (Polyethylene Glycol 3350 17 Gm Powd.Pack) 17 gm PO DAILY PRN PRN Reason: constipation Last Admin: 05/15/24 17:41 Dose: 17 gm Quetiapine Fumarate (Quetiapine Fumarate 200 Mg Tablet) 200 mg PO BEDTIME [facility] Last Admin: 07/24/24 20:47 Dose: 200 mg Sodium Biphosphate/Sodium Phosphate (Sodium Phosphate,[place]-Dibasic 133 Ml Enema) 133 ml NE ONCE PRN PRN Reason: severe constipation Last Admin: 05/13/24 18:19 Dose: 133 ml Trazodone HCl (Trazodone Hcl 50 Mg Tablet) 50 mg PO BEDTIME MRX1 PRN PRN Reason: Insomnia Last Admin: 07/16/24 20:31 Dose: 50 mg Allergies Allergies Allergy/AdvReac Type Severity Reaction Status Date / Time No Known Allergies Allergy Verified 05/04/24 15:04 Assessment & Plan Assessment & Plan (1) Bipolar 1 disorder: Status: Acute Code(s): F31.9 - Bipolar disorder, unspecified Plan The patient is a 74-year-old female, from [facility], , mother of adult children with a past history of bipolar disorder who responded fairly well with ECT in the past. Historically, she had catatonia that responded very well with ECT. Currently she was admitted for increased psychosis, impulsive behavior and manic symptoms. We tried to give her Abilify Maintena 400 mg with limited results so we started ECT. Hospital course: 07/21 continue treatment plan 07/22 Patient reports that she is doing okay; agrees to continue with ECT however says she discussed with the other doctor that will only be 2 times a week. Some hypotension today, no symptoms, lisinopril held Patient remains in good behavioral and impulse control Plan 1. Continue with Abilify Maintena 400 mg IM monthly. 2. Continue with Depakote 750 p.o. daily. 3. Continue with ECT. 4. Start working for disposition. Reason for continued inpatient stay Substantial Risk for: inability to function, rapid decompensation and med/psych decompensation Time Spent With Patient Time: Total time managing care of this patient today __20__ minutes.
[2024-07-25] MEDS: Divalproex Sodium ER 250 MG TAB.ER.24H 750 MG PO (19:49)
[2024-07-25] MEDS: QUEtiapine Fumarate 200 MG TABLET PO (19:50)
[2024-07-25 20:00] VITALS: BP 115/56; PULSE 69; RESP 16; TEMP 36.3
[2024-07-26 08:00] VITALS: BP 94/57; PULSE 69; RESP 18; TEMP 35.9; O2SAT 97
[2024-07-26] MEDS: lisinopriL 2.5 MG TABLET PO (09:13)
[2024-07-26] MEDS: Docusate Sodium 100 MG CAPSULE 200 MG PO ×2 (09:13→20:48)
[2024-07-26] MEDS: Famotidine 20 MG TABLET PO (09:13)
[2024-07-26] MEDS: Benztropine Mesylate 0.5 MG TABLET PO ×2 (09:13→20:47)
[2024-07-26 13:14] VITALS: BMI 24.3
--- NOTE | 2024-07-26 15:19 | HO.PSYCHPN ---
Subjective Subjective Date of Service: 07/26/24 Reason For Visit: Psychosis Subjective Notes: Conditional Voluntary Interim History: The nursing staff reported the patient had been pleasant cooperative. The social media marketer reported that macie Cortez is checking her chart. On interview the patient denies new symptoms, waiting for placement. Mental Status Exam Mental Status Exam Patient Appearance: Well Grooomed and Appropriate Patient Orientation: Person and Situation Level of Consciousness: Awake and Appropriate Patient Behavior: Guarded and Passive Mood Description: Withdrawn Affect Description: Constricted Patient Cognition Impaired: Yes Ability to Follow Directions: Good Speech Pattern: Clear Hallucinations: None Delusions: Not Present Thought Process: Distracted and Slowed Thinking Thought Content: positive for [place] and positive for Poverty of Content Judgement: Fair Diagnostics Vital Signs (24Hr): Vital Signs - 24 hr 07/25/24 20:00 07/26/24 08:00 Temperature 97.3 F 96.7 F L Pulse Rate 69 69 Respiratory Rate 16 18 Blood Pressure 115/56 L 94/57 L Pulse Oximetry 97 Oxygen Delivery Method Room Air BMI result Body Mass Index 24.3 Labs 07/12/24 07:54 07/12/24 07:54 Imaging Radiology Impressions: ITS Impressions Head CT 05/16/24 14:30 IMPRESSION: There are no acute bleeds or territorial infarcts. No masses are demonstrated. Brain parenchymal attenuation is unremarkable. Medications Medications Current Medications Acetaminophen (Acetaminophen 325 Mg Tablet) 650 mg PO Q6H PRN PRN Reason: Headache/Pain Mild Scale (1-3) Last Admin: 07/23/24 09:32 Dose: 650 mg Al Hydroxide/Mg Hydroxide (Magnesium Hydrox/Alum Hydrox 30 Ml Oral.Susp) 30 ml PO Q6H PRN PRN Reason: Heartburn/Nausea Aripiprazole (Aripiprazole Er 400 Mg Suser.Syr) 400 mg IM Q30D [facility] Last Admin: 07/04/24 15:17 Dose: 400 mg Benztropine Mesylate (Benztropine Mesylate 0.5 Mg Tablet) 0.5 mg PO BID [facility] Last Admin: 07/26/24 09:13 Dose: 0.5 mg Bisacodyl (Bisacodyl 10 Mg Supp.Rect) [address] DAILY PRN PRN Reason: Constipation Divalproex Sodium (Divalproex Sodium Er 250 Mg Tab.Er.24h) 750 mg PO BEDTIME [facility] Last Admin: 07/25/24 19:49 Dose: 750 mg Docusate Sodium (Docusate Sodium 100 Mg Capsule) 200 mg PO BID [facility] Last Admin: 07/26/24 09:13 Dose: 200 mg Famotidine (Famotidine 20 Mg Tablet) 20 mg PO DAILY [facility] Last Admin: 07/26/24 09:13 Dose: 20 mg Haloperidol (Haloperidol 5 Mg Tablet) 5 mg PO Q6H PRN PRN Reason: Psychosis Last Admin: 06/25/24 13:27 Dose: 5 mg Haloperidol Lactate (Haloperidol Lactate 5 Mg/Ml Vial) 5 mg IM TID PRN PRN Reason: Refusal antipsychotics Last Admin: 06/27/24 22:06 Dose: 5 mg Lisinopril (Lisinopril 2.5 Mg Tablet) 2.5 mg PO DAILY [facility]; Protocol Last Admin: 07/26/24 09:13 Dose: 2.5 mg Lorazepam (Lorazepam 1 Mg Tablet) 2 mg PO TID PRN PRN Reason: agitation Last Admin: 06/24/24 15:19 Dose: 2 mg Magnesium Hydroxide (Milk Of Magnesia 30 Ml Oral.Susp) 30 ml PO DAILY PRN PRN Reason: Constipation Last Admin: 07/13/24 21:10 Dose: 30 ml Naloxone HCl (Naloxone Hcl 0.4 Mg/Ml Vial) 0.04 mg IVPUSH Q5M PRN PRN Reason: Excessive sedation or RR < 8 Naloxone HCl (Naloxone Hcl 0.4 Mg/Ml Vial) 0.04 mg IVPUSH Q5M PRN PRN Reason: Excessive sedation or RR < 8 Naloxone HCl (Naloxone Hcl 0.4 Mg/Ml Vial) 0.04 mg IVPUSH Q5M PRN PRN Reason: Excessive sedation or RR < 8 Ondansetron HCl (Ondansetron Odt 4 Mg Tab.Rapdis) 8 mg TRANSLINGU Q8H PRN PRN Reason: Nausea and Vomiting Last Admin: 05/26/24 11:02 Dose: 8 mg Polyethylene Glycol (Polyethylene Glycol 3350 17 Gm Powd.Pack) 17 gm PO DAILY PRN PRN Reason: constipation Last Admin: 05/15/24 17:41 Dose: 17 gm Quetiapine Fumarate (Quetiapine Fumarate 200 Mg Tablet) 200 mg PO BEDTIME [facility] Last Admin: 07/25/24 19:50 Dose: 200 mg Sodium Biphosphate/Sodium Phosphate (Sodium Phosphate,[place]-Dibasic 133 Ml Enema) [address] ONCE PRN PRN Reason: severe constipation Last Admin: 05/13/24 18:19 Dose: 133 ml Trazodone HCl (Trazodone Hcl 50 Mg Tablet) 50 mg PO BEDTIME MRX1 PRN PRN Reason: Insomnia Last Admin: 07/16/24 20:31 Dose: 50 mg Allergies Allergies Allergy/AdvReac Type Severity Reaction Status Date / Time No Known Allergies Allergy Verified 05/04/24 15:04 Assessment & Plan Assessment & Plan (1) Bipolar 1 disorder: Status: Acute Code(s): F31.9 - Bipolar disorder, unspecified Plan The patient is a 74-year-old female, from [facility], , mother of adult children with a past history of bipolar disorder who responded fairly well with ECT in the past. Historically, she had catatonia that responded very well with ECT. Currently she was admitted for increased psychosis, impulsive behavior and manic symptoms. We tried to give her Abilify Maintena 400 mg with limited results so we started ECT. Hospital course: 07/21 continue treatment plan 07/22 Patient reports that she is doing okay; agrees to continue with ECT however says she discussed with the other doctor that will only be 2 times a week. Some hypotension today, no symptoms, lisinopril held Patient remains in good behavioral and impulse control Plan 1. Continue with Abilify Maintena 400 mg IM monthly. 2. Continue with Depakote 750 p.o. daily. 3. Continue with ECT. 4. Start working for disposition. Reason for continued inpatient stay Substantial Risk for: inability to function, rapid decompensation and med/psych decompensation Time Spent With Patient Time: Total time managing care of this patient today __20__ minutes.
[2024-07-26 20:00] VITALS: BP 106/81; PULSE 71; RESP 18; TEMP 36.6; O2SAT 99
[2024-07-26] MEDS: Divalproex Sodium ER 250 MG TAB.ER.24H 750 MG PO (20:47)
[2024-07-26] MEDS: QUEtiapine Fumarate 200 MG TABLET PO (20:48)
[2024-07-27 09:48] VITALS: BP 101/55; PULSE 81; RESP 15; TEMP 36.9; O2SAT 96
[2024-07-27] MEDS: Famotidine 20 MG TABLET PO (09:49)
[2024-07-27] MEDS: Benztropine Mesylate 0.5 MG TABLET PO ×2 (09:49→20:15)
[2024-07-27] MEDS: lisinopriL 2.5 MG TABLET PO (09:49)
[2024-07-27] MEDS: Docusate Sodium 100 MG CAPSULE 200 MG PO ×2 (09:49→20:16)
--- NOTE | 2024-07-27 16:31 | HO.PSYCHPN ---
Subjective Subjective Date of Service: 07/27/24 Reason For Visit: Psychosis Subjective Notes: Conditional Voluntary Interim History: The nursing staff reported the patient had been fully compliant with treatment pleasant cooperative. The social economist reported the patient has been recently denied from another facility. On interview the patient denies new symptoms, most likely she will go back to her daughter's place now that she is more stable. Mental Status Exam Mental Status Exam Patient Appearance: Appropriate Patient Orientation: Person and Situation Level of Consciousness: Awake and Appropriate Patient Behavior: Guarded and Passive Mood Description: Withdrawn Affect Description: Constricted Patient Cognition Impaired: Yes Ability to Follow Directions: Good Speech Pattern: Clear Hallucinations: None Delusions: Not Present Thought Process: Distracted and Slowed Thinking Thought Content: positive for [place] and positive for Poverty of Content Judgement: Fair Diagnostics Vital Signs (24Hr): Vital Signs - 24 hr 07/26/24 20:00 07/27/24 09:48 Temperature 97.8 F 98.5 F Pulse Rate 71 81 Respiratory Rate 18 15 Blood Pressure 106/81 101/55 L Pulse Oximetry 99 96 Oxygen Delivery Method Room Air Room Air BMI result Body Mass Index 24.3 Labs 07/12/24 07:54 07/12/24 07:54 Imaging Radiology Impressions: ITS Impressions Head CT 05/16/24 14:30 IMPRESSION: There are no acute bleeds or territorial infarcts. No masses are demonstrated. Brain parenchymal attenuation is unremarkable. Medications Medications Current Medications Acetaminophen (Acetaminophen 325 Mg Tablet) 650 mg PO Q6H PRN PRN Reason: Headache/Pain Mild Scale (1-3) Last Admin: 07/23/24 09:32 Dose: 650 mg Al Hydroxide/Mg Hydroxide (Magnesium Hydrox/Alum Hydrox 30 Ml Oral.Susp) 30 ml PO Q6H PRN PRN Reason: Heartburn/Nausea Aripiprazole (Aripiprazole Er 400 Mg Suser.Syr) 400 mg IM Q30D [facility] Last Admin: 07/04/24 15:17 Dose: 400 mg Benztropine Mesylate (Benztropine Mesylate 0.5 Mg Tablet) 0.5 mg PO BID [facility] Last Admin: 07/27/24 09:49 Dose: 0.5 mg Bisacodyl (Bisacodyl 10 Mg Supp.Rect) 10 mg [place] DAILY PRN PRN Reason: Constipation Divalproex Sodium (Divalproex Sodium Er 250 Mg Tab.Er.24h) 750 mg PO BEDTIME [facility] Last Admin: 07/26/24 20:47 Dose: 750 mg Docusate Sodium (Docusate Sodium 100 Mg Capsule) 200 mg PO BID [facility] Last Admin: 07/27/24 09:49 Dose: 200 mg Famotidine (Famotidine 20 Mg Tablet) 20 mg PO DAILY [facility] Last Admin: 07/27/24 09:49 Dose: 20 mg Haloperidol (Haloperidol 5 Mg Tablet) 5 mg PO Q6H PRN PRN Reason: Psychosis Last Admin: 06/25/24 13:27 Dose: 5 mg Haloperidol Lactate (Haloperidol Lactate 5 Mg/Ml Vial) 5 mg IM TID PRN PRN Reason: Refusal antipsychotics Last Admin: 06/27/24 22:06 Dose: 5 mg Lisinopril (Lisinopril 2.5 Mg Tablet) 2.5 mg PO DAILY [facility]; Protocol Last Admin: 07/27/24 09:49 Dose: 2.5 mg Lorazepam (Lorazepam 1 Mg Tablet) 2 mg PO TID PRN PRN Reason: agitation Last Admin: 06/24/24 15:19 Dose: 2 mg Magnesium Hydroxide (Milk Of Magnesia 30 Ml Oral.Susp) 30 ml PO DAILY PRN PRN Reason: Constipation Last Admin: 07/13/24 21:10 Dose: 30 ml Naloxone HCl (Naloxone Hcl 0.4 Mg/Ml Vial) 0.04 mg IVPUSH Q5M PRN PRN Reason: Excessive sedation or RR < 8 Naloxone HCl (Naloxone Hcl 0.4 Mg/Ml Vial) 0.04 mg IVPUSH Q5M PRN PRN Reason: Excessive sedation or RR < 8 Naloxone HCl (Naloxone Hcl 0.4 Mg/Ml Vial) 0.04 mg IVPUSH Q5M PRN PRN Reason: Excessive sedation or RR < 8 Ondansetron HCl (Ondansetron Odt 4 Mg Tab.Rapdis) 8 mg TRANSLINGU Q8H PRN PRN Reason: Nausea and Vomiting Last Admin: 05/26/24 11:02 Dose: 8 mg Polyethylene Glycol (Polyethylene Glycol 3350 17 Gm Powd.Pack) 17 gm PO DAILY PRN PRN Reason: constipation Last Admin: 05/15/24 17:41 Dose: 17 gm Quetiapine Fumarate (Quetiapine Fumarate 200 Mg Tablet) 200 mg PO BEDTIME [facility] Last Admin: 07/26/24 20:48 Dose: 200 mg Sodium Biphosphate/Sodium Phosphate (Sodium Phosphate,[place]-Dibasic 133 Ml Enema) 133 ml [place] ONCE PRN PRN Reason: severe constipation Last Admin: 05/13/24 18:19 Dose: 133 ml Trazodone HCl (Trazodone Hcl 50 Mg Tablet) 50 mg PO BEDTIME MRX1 PRN PRN Reason: Insomnia Last Admin: 07/16/24 20:31 Dose: 50 mg Allergies Allergies Allergy/AdvReac Type Severity Reaction Status Date / Time No Known Allergies Allergy Verified 05/04/24 15:04 Assessment & Plan Assessment & Plan (1) Bipolar 1 disorder: Status: Acute Code(s): F31.9 - Bipolar disorder, unspecified Plan The patient is a 74-year-old female, from [facility], , mother of adult children with a past history of bipolar disorder who responded fairly well with ECT in the past. Historically, she had catatonia that responded very well with ECT. Currently she was admitted for increased psychosis, impulsive behavior and manic symptoms. We tried to give her Abilify Maintena 400 mg with limited results so we started ECT. Hospital course: 07/21 continue treatment plan 07/22 Patient reports that she is doing okay; agrees to continue with ECT however says she discussed with the other doctor that will only be 2 times a week. Some hypotension today, no symptoms, lisinopril held Patient remains in good behavioral and impulse control Plan 1. Continue with Abilify Maintena 400 mg IM monthly. 2. Continue with Depakote 750 p.o. daily. 3. Continue with ECT. 4. Start working for disposition. Reason for continued inpatient stay Substantial Risk for: inability to function, rapid decompensation and med/psych decompensation Time Spent With Patient Time: Total time managing care of this patient today __20__ minutes.
[2024-07-27 20:00] VITALS: BP 118/70; PULSE 66; RESP 18; TEMP 36.4; O2SAT 99
[2024-07-27] MEDS: Divalproex Sodium ER 250 MG TAB.ER.24H 750 MG PO (20:16)
[2024-07-27] MEDS: QUEtiapine Fumarate 200 MG TABLET PO (20:16)
[2024-07-28 08:19] VITALS: BP 106/51; PULSE 72; RESP 18; TEMP 36.1; O2SAT 97
[2024-07-28] MEDS: Docusate Sodium 100 MG CAPSULE 200 MG PO ×2 (08:43→20:15)
[2024-07-28] MEDS: Famotidine 20 MG TABLET PO (08:43)
[2024-07-28] MEDS: Benztropine Mesylate 0.5 MG TABLET PO ×2 (08:43→20:15)
[2024-07-28] MEDS: lisinopriL 2.5 MG TABLET PO (08:44)
--- NOTE | 2024-07-28 11:14 | P.PNPSI_ITS ---
Subjective Subjective Date of Service: 07/28/24 Reason For Visit: Psychosis Subjective Notes: Conditional Voluntary Interim History: The nursing staff reported the patient had been fully compliant with treatment pleasant cooperative. Patient has been compliant with medical treatment and with ECT. Her mood is stable she has been future oriented. Have been referrals to try and transition care Medication Compliance: Yes Review of Systems Acute medical concerns: No Mental Status Exam Mental Status Exam Patient Appearance: Appropriate Patient Orientation: Person and Situation Level of Consciousness: Awake and Appropriate Patient Behavior: Appropriate, Guarded and Passive Mood Description: Withdrawn Affect Description: Constricted Patient Cognition Impaired: Yes Ability to Follow Directions: Good Speech Pattern: Clear Hallucinations: None Delusions: Not Present Thought Process: Distracted and Slowed Thinking Thought Content: positive for [place] and positive for Poverty of Content Judgement: Good Diagnostics Vital Signs (24Hr): Vital Signs - 24 hr 07/27/24 20:00 07/28/24 08:19 Temperature 97.6 F 96.9 F Pulse Rate 66 72 Respiratory Rate 18 18 Blood Pressure 118/70 106/51 L Pulse Oximetry 99 97 Oxygen Delivery Method Room Air Room Air BMI result Body Mass Index 24.3 Labs 07/12/24 07:54 07/12/24 07:54 Imaging Radiology Impressions: ITS Impressions Head CT 05/16/24 14:30 IMPRESSION: There are no acute bleeds or territorial infarcts. No masses are demonstrated. Brain parenchymal attenuation is unremarkable. Medications Medications Current Medications Acetaminophen (Acetaminophen 325 Mg Tablet) 650 mg PO Q6H PRN PRN Reason: Headache/Pain Mild Scale (1-3) Last Admin: 07/23/24 09:32 Dose: 650 mg Al Hydroxide/Mg Hydroxide (Magnesium Hydrox/Alum Hydrox 30 Ml Oral.Susp) 30 ml PO Q6H PRN PRN Reason: Heartburn/Nausea Aripiprazole (Aripiprazole Er 400 Mg Suser.Syr) 400 mg IM Q30D [facility] Last Admin: 07/04/24 15:17 Dose: 400 mg Benztropine Mesylate (Benztropine Mesylate 0.5 Mg Tablet) 0.5 mg PO BID [facility] Last Admin: 07/28/24 08:43 Dose: 0.5 mg Bisacodyl (Bisacodyl 10 Mg Supp.Rect) 10 mg [place] DAILY PRN PRN Reason: Constipation Divalproex Sodium (Divalproex Sodium Er 250 Mg Tab.Er.24h) 750 mg PO BEDTIME [facility] Last Admin: 07/27/24 20:16 Dose: 750 mg Docusate Sodium (Docusate Sodium 100 Mg Capsule) 200 mg PO BID [facility] Last Admin: 07/28/24 08:43 Dose: 200 mg Famotidine (Famotidine 20 Mg Tablet) 20 mg PO DAILY [facility] Last Admin: 07/28/24 08:43 Dose: 20 mg Haloperidol (Haloperidol 5 Mg Tablet) 5 mg PO Q6H PRN PRN Reason: Psychosis Last Admin: 06/25/24 13:27 Dose: 5 mg Haloperidol Lactate (Haloperidol Lactate 5 Mg/Ml Vial) 5 mg IM TID PRN PRN Reason: Refusal antipsychotics Last Admin: 06/27/24 22:06 Dose: 5 mg Lisinopril (Lisinopril 2.5 Mg Tablet) 2.5 mg PO DAILY [facility]; Protocol Last Admin: 07/28/24 08:44 Dose: 2.5 mg Lorazepam (Lorazepam 1 Mg Tablet) 2 mg PO TID PRN PRN Reason: agitation Last Admin: 06/24/24 15:19 Dose: 2 mg Magnesium Hydroxide (Milk Of Magnesia 30 Ml Oral.Susp) 30 ml PO DAILY PRN PRN Reason: Constipation Last Admin: 07/13/24 21:10 Dose: 30 ml Naloxone HCl (Naloxone Hcl 0.4 Mg/Ml Vial) 0.04 mg IVPUSH Q5M PRN PRN Reason: Excessive sedation or RR < 8 Naloxone HCl (Naloxone Hcl 0.4 Mg/Ml Vial) 0.04 mg IVPUSH Q5M PRN PRN Reason: Excessive sedation or RR < 8 Naloxone HCl (Naloxone Hcl 0.4 Mg/Ml Vial) 0.04 mg IVPUSH Q5M PRN PRN Reason: Excessive sedation or RR < 8 Ondansetron HCl (Ondansetron Odt 4 Mg Tab.Rapdis) 8 mg TRANSLINGU Q8H PRN PRN Reason: Nausea and Vomiting Last Admin: 05/26/24 11:02 Dose: 8 mg Polyethylene Glycol (Polyethylene Glycol 3350 17 Gm Powd.Pack) 17 gm PO DAILY PRN PRN Reason: constipation Last Admin: 05/15/24 17:41 Dose: 17 gm Quetiapine Fumarate (Quetiapine Fumarate 200 Mg Tablet) 200 mg PO BEDTIME [facility] Last Admin: 07/27/24 20:16 Dose: 200 mg Sodium Biphosphate/Sodium Phosphate (Sodium Phosphate,[place]-Dibasic 133 Ml Enema) 133 ml [place] ONCE PRN PRN Reason: severe constipation Last Admin: 05/13/24 18:19 Dose: 133 ml Trazodone HCl (Trazodone Hcl 50 Mg Tablet) 50 mg PO BEDTIME MRX1 PRN PRN Reason: Insomnia Last Admin: 07/16/24 20:31 Dose: 50 mg Allergies Allergies Allergy/AdvReac Type Severity Reaction Status Date / Time No Known Allergies Allergy Verified 05/04/24 15:04 Assessment & Plan Assessment & Plan (1) Bipolar 1 disorder: Status: Acute Code(s): F31.9 - Bipolar disorder, unspecified Plan The patient is a 74-year-old female, from [facility], , mother of adult children with a past history of bipolar disorder who responded fairly well with ECT in the past. Historically, she had catatonia that responded very well with ECT. Currently she was admitted for increased psychosis, impulsive behavior and manic symptoms. We tried to give her Abilify Maintena 400 mg with limited results so we started ECT. Hospital course: 07/21 continue treatment plan 07/22 Patient reports that she is doing okay; agrees to continue with ECT however says she discussed with the other doctor that will only be 2 times a week. Some hypotension today, no symptoms, lisinopril held Patient remains in good behavioral and impulse control Plan 1. Continue with Abilify Maintena 400 mg IM monthly. 2. Continue with Depakote 750 p.o. daily. 3. Continue with ECT. 4. Start working for disposition. 07/28/2024 Continue plan of care maintenance ECT discharge planning Reason for continued inpatient stay Substantial Risk for: inability to function and med/psych decompensation Time Spent With Patient Time: Total time managing care of this patient today _20___ minutes.
[2024-07-28 20:00] VITALS: BP 111/58; PULSE 70; RESP 16; TEMP 36.7; O2SAT 96
[2024-07-28] MEDS: QUEtiapine Fumarate 200 MG TABLET PO (20:15)
[2024-07-28] MEDS: Divalproex Sodium ER 250 MG TAB.ER.24H 750 MG PO (20:15)
[2024-07-29 08:00] VITALS: BP 110/52; PULSE 68; RESP 18; TEMP 36.4; O2SAT 95
[2024-07-29] MEDS: Famotidine 20 MG TABLET PO (08:32)
[2024-07-29] MEDS: lisinopriL 2.5 MG TABLET PO (08:32)
[2024-07-29] MEDS: Docusate Sodium 100 MG CAPSULE 200 MG PO ×2 (08:32→20:44)
[2024-07-29] MEDS: Benztropine Mesylate 0.5 MG TABLET PO ×2 (08:32→20:44)
[2024-07-29 20:00] VITALS: BP 144/63; PULSE 65; RESP 18; TEMP 36.8; O2SAT 97
[2024-07-29] MEDS: QUEtiapine Fumarate 200 MG TABLET PO (20:44)
[2024-07-29] MEDS: Divalproex Sodium ER 250 MG TAB.ER.24H 750 MG PO (20:44)
--- NOTE | 2024-07-29 22:53 | HO.PSYCHPN ---
Subjective Subjective Date of Service: 07/29/24 Reason For Visit: Psychosis Subjective Notes: Conditional Voluntary Interim History: Patient seen psychiatric follow-up has been calm cooperative Mental Status Exam Mental Status Exam Patient Appearance: Appropriate Patient Orientation: Person and Situation Level of Consciousness: Awake and Appropriate Patient Behavior: Appropriate, Guarded and Passive Mood Description: Withdrawn Affect Description: Constricted Patient Cognition Impaired: Yes Ability to Follow Directions: Good Speech Pattern: Clear Hallucinations: None Delusions: Not Present Thought Process: Distracted and Slowed Thinking Thought Content: positive for [place] and positive for Poverty of Content Judgement: Good Diagnostics Vital Signs (24Hr): Vital Signs - 24 hr 07/29/24 08:00 07/29/24 20:00 Temperature 97.5 F 98.3 F Pulse Rate 68 65 Respiratory Rate 18 18 Blood Pressure 110/52 L 144/63 H Pulse Oximetry 95 97 Oxygen Delivery Method Room Air Room Air BMI result Body Mass Index 24.3 Labs 07/12/24 07:54 07/12/24 07:54 Imaging Radiology Impressions: ITS Impressions Head CT 05/16/24 14:30 IMPRESSION: There are no acute bleeds or territorial infarcts. No masses are demonstrated. Brain parenchymal attenuation is unremarkable. Medications Medications Current Medications Acetaminophen (Acetaminophen 325 Mg Tablet) 650 mg PO Q6H PRN PRN Reason: Headache/Pain Mild Scale (1-3) Last Admin: 07/23/24 09:32 Dose: 650 mg Al Hydroxide/Mg Hydroxide (Magnesium Hydrox/Alum Hydrox 30 Ml Oral.Susp) 30 ml PO Q6H PRN PRN Reason: Heartburn/Nausea Aripiprazole (Aripiprazole Er 400 Mg Suser.Syr) 400 mg IM Q30D [facility] Last Admin: 07/04/24 15:17 Dose: 400 mg Benztropine Mesylate (Benztropine Mesylate 0.5 Mg Tablet) 0.5 mg PO BID [facility] Last Admin: 07/29/24 20:44 Dose: 0.5 mg Bisacodyl (Bisacodyl 10 Mg Supp.Rect) 10 mg [place] DAILY PRN PRN Reason: Constipation Divalproex Sodium (Divalproex Sodium Er 250 Mg Tab.Er.24h) 750 mg PO BEDTIME [facility] Last Admin: 07/29/24 20:44 Dose: 750 mg Docusate Sodium (Docusate Sodium 100 Mg Capsule) 200 mg PO BID [facility] Last Admin: 07/29/24 20:44 Dose: 200 mg Famotidine (Famotidine 20 Mg Tablet) 20 mg PO DAILY [facility] Last Admin: 07/29/24 08:32 Dose: 20 mg Haloperidol (Haloperidol 5 Mg Tablet) 5 mg PO Q6H PRN PRN Reason: Psychosis Last Admin: 06/25/24 13:27 Dose: 5 mg Haloperidol Lactate (Haloperidol Lactate 5 Mg/Ml Vial) 5 mg IM TID PRN PRN Reason: Refusal antipsychotics Last Admin: 06/27/24 22:06 Dose: 5 mg Lisinopril (Lisinopril 2.5 Mg Tablet) 2.5 mg PO DAILY [facility]; Protocol Last Admin: 07/29/24 08:32 Dose: 2.5 mg Lorazepam (Lorazepam 1 Mg Tablet) 1 mg PO TID PRN PRN Reason: agitation Magnesium Hydroxide (Milk Of Magnesia 30 Ml Oral.Susp) 30 ml PO DAILY PRN PRN Reason: Constipation Last Admin: 07/13/24 21:10 Dose: 30 ml Naloxone HCl (Naloxone Hcl 0.4 Mg/Ml Vial) 0.04 mg IVPUSH Q5M PRN PRN Reason: Excessive sedation or RR < 8 Naloxone HCl (Naloxone Hcl 0.4 Mg/Ml Vial) 0.04 mg IVPUSH Q5M PRN PRN Reason: Excessive sedation or RR < 8 Naloxone HCl (Naloxone Hcl 0.4 Mg/Ml Vial) 0.04 mg IVPUSH Q5M PRN PRN Reason: Excessive sedation or RR < 8 Ondansetron HCl (Ondansetron Odt 4 Mg Tab.Rapdis) 8 mg TRANSLINGU Q8H PRN PRN Reason: Nausea and Vomiting Last Admin: 05/26/24 11:02 Dose: 8 mg Polyethylene Glycol (Polyethylene Glycol 3350 17 Gm Powd.Pack) 17 gm PO DAILY PRN PRN Reason: constipation Last Admin: 05/15/24 17:41 Dose: 17 gm Quetiapine Fumarate (Quetiapine Fumarate 200 Mg Tablet) 200 mg PO BEDTIME [facility] Last Admin: 07/29/24 20:44 Dose: 200 mg Sodium Biphosphate/Sodium Phosphate (Sodium Phosphate,[place]-Dibasic 133 Ml Enema) 133 ml [place] ONCE PRN PRN Reason: severe constipation Last Admin: 05/13/24 18:19 Dose: 133 ml Trazodone HCl (Trazodone Hcl 50 Mg Tablet) 50 mg PO BEDTIME MRX1 PRN PRN Reason: Insomnia Last Admin: 07/16/24 20:31 Dose: 50 mg Allergies Allergies Allergy/AdvReac Type Severity Reaction Status Date / Time No Known Allergies Allergy Verified 05/04/24 15:04 Assessment & Plan Assessment & Plan (1) Bipolar 1 disorder: Status: Acute Code(s): F31.9 - Bipolar disorder, unspecified Plan The patient is a 74-year-old female, from [facility], , mother of adult children with a past history of bipolar disorder who responded fairly well with ECT in the past. Historically, she had catatonia that responded very well with ECT. Currently she was admitted for increased psychosis, impulsive behavior and manic symptoms. We tried to give her Abilify Maintena 400 mg with limited results so we started ECT. Hospital course: 07/21 continue treatment plan 07/22 Patient reports that she is doing okay; agrees to continue with ECT however says she discussed with the other doctor that will only be 2 times a week. Some hypotension today, no symptoms, lisinopril held Patient remains in good behavioral and impulse control Plan 1. Continue with Abilify Maintena 400 mg IM monthly. 2. Continue with Depakote 750 p.o. daily. 3. Continue with ECT. 4. Start working for disposition. 07/28/2024 Continue plan of care maintenance ECT discharge planning 07/29/2024 Continue plan of care Reason for continued inpatient stay Substantial Risk for: inability to function and rapid decompensation Time Spent With Patient Time: Total time managing care of this patient today ____ minutes.
[2024-07-30 08:00] VITALS: BP 134/65; PULSE 88; RESP 16; TEMP 36.8; O2SAT 98
--- NOTE | 2024-07-30 12:57 | P.PNPSI_ITS ---
Subjective Subjective Date of Service: 07/30/24 Reason For Visit: Psychosis Subjective Notes: Conditional Voluntary Interim History: The nursing staff reported the patient had been nice pleasant cooperative. The geriatric social worker reported that she was denied from [facility]. Today we had a family meeting with her daughter Love and most likely the patient will go back to her place with ancillary services and help of the family. Today we have ECT scheduled but it was ordered for later this afternoon. On interview the patient denies new symptoms, waiting for placement Mental Status Exam Mental Status Exam Patient Appearance: Appropriate Patient Orientation: Person and Situation Level of Consciousness: Awake and Appropriate Patient Behavior: Guarded and Passive Mood Description: Withdrawn Affect Description: Calm Patient Cognition Impaired: Yes Ability to Follow Directions: Good Speech Pattern: Clear Hallucinations: None Delusions: Not Present Thought Process: Distracted and Slowed Thinking Thought Content: positive for [place] and positive for Poverty of Content Judgement: Fair Diagnostics Vital Signs (24Hr): Vital Signs - 24 hr 07/29/24 20:00 Temperature 98.3 F Pulse Rate 65 Respiratory Rate 18 Blood Pressure 144/63 H Pulse Oximetry 97 Oxygen Delivery Method Room Air BMI result Body Mass Index 24.3 Labs 07/12/24 07:54 07/12/24 07:54 Imaging Radiology Impressions: ITS Impressions Head CT 05/16/24 14:30 IMPRESSION: There are no acute bleeds or territorial infarcts. No masses are demonstrated. Brain parenchymal attenuation is unremarkable. Medications Medications Current Medications Acetaminophen (Acetaminophen 325 Mg Tablet) 650 mg PO Q6H PRN PRN Reason: Headache/Pain Mild Scale (1-3) Last Admin: 07/23/24 09:32 Dose: 650 mg Al Hydroxide/Mg Hydroxide (Magnesium Hydrox/Alum Hydrox 30 Ml Oral.Susp) 30 ml PO Q6H PRN PRN Reason: Heartburn/Nausea Aripiprazole (Aripiprazole Er 400 Mg Suser.Syr) 400 mg IM Q30D [facility] Last Admin: 07/04/24 15:17 Dose: 400 mg Benztropine Mesylate (Benztropine Mesylate 0.5 Mg Tablet) 0.5 mg PO BID [facility] Last Admin: 07/29/24 20:44 Dose: 0.5 mg Bisacodyl (Bisacodyl 10 Mg Supp.Rect) 10 mg [place] DAILY PRN PRN Reason: Constipation Divalproex Sodium (Divalproex Sodium Er 250 Mg Tab.Er.24h) 750 mg PO BEDTIME [facility] Last Admin: 07/29/24 20:44 Dose: 750 mg Docusate Sodium (Docusate Sodium 100 Mg Capsule) 200 mg PO BID [facility] Last Admin: 07/29/24 20:44 Dose: 200 mg Famotidine (Famotidine 20 Mg Tablet) 20 mg PO DAILY [facility] Last Admin: 07/29/24 08:32 Dose: 20 mg Haloperidol (Haloperidol 5 Mg Tablet) 5 mg PO Q6H PRN PRN Reason: Psychosis Last Admin: 06/25/24 13:27 Dose: 5 mg Haloperidol Lactate (Haloperidol Lactate 5 Mg/Ml Vial) 5 mg IM TID PRN PRN Reason: Refusal antipsychotics Last Admin: 06/27/24 22:06 Dose: 5 mg Lisinopril (Lisinopril 2.5 Mg Tablet) 2.5 mg PO DAILY [facility]; Protocol Last Admin: 07/29/24 08:32 Dose: 2.5 mg Lorazepam (Lorazepam 1 Mg Tablet) 1 mg PO TID PRN PRN Reason: agitation Magnesium Hydroxide (Milk Of Magnesia 30 Ml Oral.Susp) 30 ml PO DAILY PRN PRN Reason: Constipation Last Admin: 07/13/24 21:10 Dose: 30 ml Naloxone HCl (Naloxone Hcl 0.4 Mg/Ml Vial) 0.04 mg IVPUSH Q5M PRN PRN Reason: Excessive sedation or RR < 8 Naloxone HCl (Naloxone Hcl 0.4 Mg/Ml Vial) 0.04 mg IVPUSH Q5M PRN PRN Reason: Excessive sedation or RR < 8 Naloxone HCl (Naloxone Hcl 0.4 Mg/Ml Vial) 0.04 mg IVPUSH Q5M PRN PRN Reason: Excessive sedation or RR < 8 Ondansetron HCl (Ondansetron Odt 4 Mg Tab.Rapdis) 8 mg TRANSLINGU Q8H PRN PRN Reason: Nausea and Vomiting Last Admin: 05/26/24 11:02 Dose: 8 mg Polyethylene Glycol (Polyethylene Glycol 3350 17 Gm Powd.Pack) 17 gm PO DAILY PRN PRN Reason: constipation Last Admin: 05/15/24 17:41 Dose: 17 gm Quetiapine Fumarate (Quetiapine Fumarate 200 Mg Tablet) 200 mg PO BEDTIME [facility] Last Admin: 07/29/24 20:44 Dose: 200 mg Sodium Biphosphate/Sodium Phosphate (Sodium Phosphate,[place]-Dibasic 133 Ml Enema) 133 ml [place] ONCE PRN PRN Reason: severe constipation Last Admin: 05/13/24 18:19 Dose: 133 ml Trazodone HCl (Trazodone Hcl 50 Mg Tablet) 50 mg PO BEDTIME MRX1 PRN PRN Reason: Insomnia Last Admin: 07/16/24 20:31 Dose: 50 mg Allergies Allergies Allergy/AdvReac Type Severity Reaction Status Date / Time No Known Allergies Allergy Verified 05/04/24 15:04 Assessment & Plan Assessment & Plan (1) Bipolar 1 disorder: Status: Acute Code(s): F31.9 - Bipolar disorder, unspecified Plan The patient is a 74-year-old female, from [facility], , mother of adult children with a past history of bipolar disorder who responded fairly well with ECT in the past. Historically, she had catatonia that responded very well with ECT. Currently she was admitted for increased psychosis, impulsive behavior and manic symptoms. We tried to give her Abilify Maintena 400 mg with limited results so we started ECT. Hospital course: 07/21 continue treatment plan 07/22 Patient reports that she is doing okay; agrees to continue with ECT however says she discussed with the other doctor that will only be 2 times a week. Some hypotension today, no symptoms, lisinopril held Patient remains in good behavioral and impulse control Plan 1. Continue with Abilify Maintena 400 mg IM monthly. 2. Continue with Depakote 750 p.o. daily. 3. Continue with ECT. 4. Start working for disposition. 5. We discussed ECT at least once a week for 4 weeks starting this week since the patient gets very delirious after ECT. Reason for continued inpatient stay Substantial Risk for: inability to function, rapid decompensation and med/psych decompensation Time Spent With Patient Time: Total time managing care of this patient today _20___ minutes.
--- NOTE | 2024-07-30 14:06 | MHC.SHP ---
Pre-Procedural Eval Section A - 24 Hr Update-Section A only Date of Service: 07/30/24 The patient is an INPATIENT: Yes Changes since office visit: No Cold of Flu in the past 2 weeks, No New Medical Problems, No Changes in Medication and No Patient answered all questions The patient has been examined within 24 hours of the surgical procedure. The History & Physical has been completed within 30 days and I have reviewed it.: Yes Section B - Complete if H&P > 30 days Chief Complaint: Psychosis Details of Present Illness: improved a lot iwht ECT Relevant Family History (Specify if Yes): No Relevant Social History: None Present Medications: see Short Stay Collaborative assessment Medical History: No relevant PMH History of Previous Operations: No relevant previous surgery Allergies: Allergies Allergy/AdvReac Type Severity Reaction Status Date / Time No Known Allergies Allergy Verified 05/04/24 15:04 Review of Systems Sugical H&P ROS: Negative: Constitution, Cardiovascular, Respiratory, Neurological, Psychiatric, Hem-Onc, Allergic/Immunologic, Gastrointestinal, Genitourinary, Musculoskeletal, Integumentary, Endocrine and Eyes/Ears/Nose/Throat Exam Surgical H&P Exam: Normal: HEENT, Normal: Heart, Normal: Lungs, Normal: Extremities, Normal: Abdomen, Normal: Skin and Normal: Neurological Plan Diagnosis/Plan: Unchanged I have reviewed the history and physical and performed a pertinent physical examination on my patient. No changes have occurred unless specified. Time Spent With Patient Time: Total time managing care of this patient today __20__ minutes.
--- NOTE | 2024-07-30 14:12 | HO.ANESPROP2 ---
HPI - Anesthesia Eval Consult details Narrative: for ect PMFSH Active Problems Active Problems: All Active Problems Dementia (Acute) Bipolar 1 disorder (Acute) Past Medical History Functional capacity: independent ambulation Family History Family history of problems with anesthesia: No Surgical History History of Problems with Anesthesia: No Social History Social History Household Members: Children Housing: House Patient Tobacco Use Status: Never used Tobacco Smoked in Last 30 Days: No Use of substances other than those prescribed or required for medical reasons: No Currently Displaying Signs/Symptoms of Drug Intoxication Withdrawal: No Have you been hit, kicked, punched, or otherwise hurt by someone within the past year? If so, by whom?: No Do you feel safe in your current relationship?: No Current Relationship Is there a partner from a previous relationship who is making you feel unsafe now?: No Are you made to feel afraid or neglected: No Advance Directives: No Advance Directives Information Provided: No Do you have thoughts of harming others: None Do you have a plan to hurt others: No Plan Recently lost weight without trying: No Nutrition Risks: No Nutritional Risk Patient : No : No Sexual orientation: Straight/Heterosexual Meds Allergies Allergy/AdvReac Type Severity Reaction Status Date / Time No Known Allergies Allergy Verified 05/04/24 15:04 Active Medications: Current Medications Acetaminophen (Acetaminophen 325 Mg Tablet) 650 mg PO Q6H PRN PRN Reason: Headache/Pain Mild Scale (1-3) Last Admin: 07/23/24 09:32 Dose: 650 mg Al Hydroxide/Mg Hydroxide (Magnesium Hydrox/Alum Hydrox 30 Ml Oral.Susp) 30 ml PO Q6H PRN PRN Reason: Heartburn/Nausea Aripiprazole (Aripiprazole Er 400 Mg Suser.Syr) 400 mg IM Q30D [facility] Last Admin: 07/04/24 15:17 Dose: 400 mg Benztropine Mesylate (Benztropine Mesylate 0.5 Mg Tablet) 0.5 mg PO BID [facility] Last Admin: 07/29/24 20:44 Dose: 0.5 mg Bisacodyl (Bisacodyl 10 Mg Supp.Rect) 10 mg VT DAILY PRN PRN Reason: Constipation Divalproex Sodium (Divalproex Sodium Er 250 Mg Tab.Er.24h) 750 mg PO BEDTIME [facility] Last Admin: 07/29/24 20:44 Dose: 750 mg Docusate Sodium (Docusate Sodium 100 Mg Capsule) 200 mg PO BID [facility] Last Admin: 07/29/24 20:44 Dose: 200 mg Famotidine (Famotidine 20 Mg Tablet) 20 mg PO DAILY [facility] Last Admin: 07/29/24 08:32 Dose: 20 mg Haloperidol (Haloperidol 5 Mg Tablet) 5 mg PO Q6H PRN PRN Reason: Psychosis Last Admin: 06/25/24 13:27 Dose: 5 mg Haloperidol Lactate (Haloperidol Lactate 5 Mg/Ml Vial) 5 mg IM TID PRN PRN Reason: Refusal antipsychotics Last Admin: 06/27/24 22:06 Dose: 5 mg Lisinopril (Lisinopril 2.5 Mg Tablet) 2.5 mg PO DAILY [facility]; Protocol Last Admin: 07/29/24 08:32 Dose: 2.5 mg Lorazepam (Lorazepam 1 Mg Tablet) 1 mg PO TID PRN PRN Reason: agitation Magnesium Hydroxide (Milk Of Magnesia 30 Ml Oral.Susp) 30 ml PO DAILY PRN PRN Reason: Constipation Last Admin: 07/13/24 21:10 Dose: 30 ml Naloxone HCl (Naloxone Hcl 0.4 Mg/Ml Vial) 0.04 mg IVPUSH Q5M PRN PRN Reason: Excessive sedation or RR < 8 Naloxone HCl (Naloxone Hcl 0.4 Mg/Ml Vial) 0.04 mg IVPUSH Q5M PRN PRN Reason: Excessive sedation or RR < 8 Naloxone HCl (Naloxone Hcl 0.4 Mg/Ml Vial) 0.04 mg IVPUSH Q5M PRN PRN Reason: Excessive sedation or RR < 8 Ondansetron HCl (Ondansetron Odt 4 Mg Tab.Rapdis) 8 mg TRANSLINGU Q8H PRN PRN Reason: Nausea and Vomiting Last Admin: 05/26/24 11:02 Dose: 8 mg Polyethylene Glycol (Polyethylene Glycol 3350 17 Gm Powd.Pack) 17 gm PO DAILY PRN PRN Reason: constipation Last Admin: 05/15/24 17:41 Dose: 17 gm Quetiapine Fumarate (Quetiapine Fumarate 200 Mg Tablet) 200 mg PO BEDTIME [facility] Last Admin: 07/29/24 20:44 Dose: 200 mg Sodium Biphosphate/Sodium Phosphate (Sodium Phosphate,[place]-Dibasic 133 Ml Enema) 133 ml VT ONCE PRN PRN Reason: severe constipation Last Admin: 05/13/24 18:19 Dose: 133 ml Trazodone HCl (Trazodone Hcl 50 Mg Tablet) 50 mg PO BEDTIME MRX1 PRN PRN Reason: Insomnia Last Admin: 07/16/24 20:31 Dose: 50 mg Home Medications ?Medication ?Instructions ?Recorded ?Confirmed ?Last Taken ?Type benztropine 0.5 mg tablet 0.5 mg PO BEDTIME 05/04/24 05/04/24 Unknown History divalproex 250 mg tablet,extended 250 mg PO BEDTIME 05/04/24 05/04/24 Unknown History release 24 hr lamotrigine 100 mg tablet 100 mg PO BEDTIME 05/04/24 05/04/24 Unknown History lisinopril 5 mg tablet 2.5 mg PO DAILY 05/04/24 05/04/24 Unknown History quetiapine 100 mg tablet 100 mg PO DAILY 05/04/24 05/04/24 Unknown History quetiapine 300 mg tablet 300 mg PO BEDTIME 05/04/24 05/04/24 Unknown History quetiapine 50 mg tablet 50 mg PO BID PRN Agitation 05/04/24 05/04/24 Unknown History Exam Height,Weight and Vital Signs: Height 5 ft Weight 56.427 kg Last Vital Signs Temp 98.2 F 07/30/24 08:00 Pulse 88 07/30/24 08:00 Resp 16 07/30/24 08:00 BP 134/65 07/30/24 08:00 Pulse Ox 98 07/30/24 08:00 O2 Del Method Room Air 07/30/24 08:00 O2 Flow Rate 2 07/23/24 07:42 Pertinent Lab Results Pertinent Lab Results: Laboratory Tests 05/04/24 05/05/24 05/05/24 15:03 12:44 13:08 WBC 4.9 RBC 4.49 Hgb 13.4 Hct 40.3 MCV 89.8 MCH 29.8 MCHC 33.3 RDW 13.4 Plt Count 215 MPV 9.1 L Immature Gran % (Auto) 0.2 Neut % (Auto) 51.7 Lymph % (Auto) 32.9 Mcpherson % (Auto) 11.1 H Eos % (Auto) 3.5 Baso % (Auto) 0.6 Lymph # (Auto) 1.6 [place]pherson # (Auto) 0.5 Eos # (Auto) 0.2 Baso # (Auto) 0.0 Abs Immat Gran (auto) 0.01 Absolute Neuts (auto) 2.5 Absolute Nucleated RBC 0.000 Nucleated RBC % (auto) 0.0 Hold Purple Top Sodium 141 Potassium 4.0 Chloride 102 Carbon Dioxide 31 H Anion Gap 12 BUN 19 H Creatinine 1.08 Estim Creat Clear Calc 37.5 Estimated GFR 50 Random Glucose 104 Fasting Glucose Calcium 9.4 Magnesium 2.3 Total Bilirubin 0.6 Direct Bilirubin AST 18 ALT 13 Alkaline Phosphatase 122 H Ammonia Total Protein 7.5 Albumin 4.2 Triglycerides Cholesterol LDL Cholesterol, Calc HDL Cholesterol TSH 1.25 Hold Yellow Top See Note Urine Color Urine Appearance Urine pH Ur Specific [place] Urine Protein Urine Glucose (UA) Urine Ketones Urine Blood Urine Nitrite Ur Leukocyte Esterase Urine RBC Urine WBC Ur Squamous Epith Cells Urine Bacteria Hyaline Casts Salicylates < 5.0 L Urine Opiates Screen Ur Buprenorphine Scrn Ur Oxycodone Screen Urine Methadone Screen Urine Fentanyl Screen Acetaminophen < 3 Ur Barbiturates Screen Valproic Acid < 12.5 L Ur Phencyclidine Scrn Ur Amphetamines Screen U Benzodiazepines Scrn Urine Cocaine Screen U Marijuana (THC) Screen Ethyl Alcohol < 10 05/05/24 05/09/24 05/16/24 13:16 08:10 20:12 WBC RBC Hgb Hct MCV MCH MCHC RDW Plt Count MPV Immature Gran % (Auto) Neut % (Auto) Lymph % (Auto) Mcpherson % (Auto) Eos % (Auto) Baso % (Auto) Lymph # (Auto) [place]pherson # (Auto) Eos # (Auto) Baso # (Auto) Abs Immat Gran (auto) Absolute Neuts (auto) Absolute Nucleated RBC Nucleated RBC % (auto) Hold Purple Top SEE NOTE Sodium 138 143 Potassium 3.8 4.1 Chloride 101 104 Carbon Dioxide 30 H 27 Anion Gap 11 L 16 BUN 27 H 26 H Creatinine 1.24 0.90 Estim Creat Clear Calc 32.6 44.6 Estimated GFR 43 > 60 Random Glucose 130 H Fasting Glucose 112 H Calcium 9.3 9.2 Magnesium Total Bilirubin 0.9 0.6 Direct Bilirubin 0.2 AST 18 15 ALT 12 10 Alkaline Phosphatase 100 96 Ammonia 25 Total Protein 7.3 6.7 Albumin 4.1 3.8 Triglycerides 61 Cholesterol 157 LDL Cholesterol, Calc 100 H HDL Cholesterol 45 TSH Hold Yellow Top Urine Color Yellow Urine Appearance Clear Urine pH 7.0 Ur Specific [place] 1.020 Urine Protein Negative Urine Glucose (UA) Negative Urine Ketones Negative Urine Blood Negative Urine Nitrite Negative Ur Leukocyte Esterase Moderate (2+) H Urine RBC 0-2 Urine WBC 0-5 Ur Squamous Epith Cells 0-2 Urine Bacteria None Seen Hyaline Casts 0-2 Salicylates Urine Opiates Screen Not Detected Ur Buprenorphine Scrn Not Detected Ur Oxycodone Screen Not Detected Urine Methadone Screen Not Detected Urine Fentanyl Screen Not Detected Acetaminophen Ur Barbiturates Screen Not Detected Valproic Acid 50.2 Ur Phencyclidine Scrn Not Detected Ur Amphetamines Screen Not Detected U Benzodiazepines Scrn Not Detected Urine Cocaine Screen Not Detected U Marijuana (THC) Screen Not Detected Ethyl Alcohol 05/21/24 05/22/24 05/24/24 08:09 08:03 18:05 WBC RBC Hgb Hct MCV MCH MCHC RDW Plt Count MPV Immature Gran % (Auto) Neut % (Auto) Lymph % (Auto) Mcpherson % (Auto) Eos % (Auto) Baso % (Auto) Lymph # (Auto) [place] # (Auto) Eos # (Auto) Baso # (Auto) Abs Immat Gran (auto) Absolute Neuts (auto) Absolute Nucleated RBC Nucleated RBC % (auto) Hold Purple Top Sodium 143 Potassium 3.9 Chloride 105 Carbon Dioxide 29 Anion Gap 13 BUN 31 H Creatinine 1.11 Estim Creat Clear Calc 36.0 Estimated GFR 48 Random Glucose Fasting Glucose 81 Calcium 9.5 Magnesium Total Bilirubin 0.5 Direct Bilirubin AST 17 ALT 9 Alkaline Phosphatase 89 Ammonia 20 Total Protein 7.1 Albumin 4.1 Triglycerides Cholesterol LDL Cholesterol, Calc HDL Cholesterol TSH Hold Yellow Top Urine Color Urine Appearance Urine pH Ur Specific [place] Urine Protein Urine Glucose (UA) Urine Ketones Urine Blood Urine Nitrite Ur Leukocyte Esterase Urine RBC Urine WBC Ur Squamous Epith Cells Urine Bacteria Hyaline Casts Salicylates Urine Opiates Screen Ur Buprenorphine Scrn Ur Oxycodone Screen Urine Methadone Screen Urine Fentanyl Screen Acetaminophen Ur Barbiturates Screen Valproic Acid 142.5 H* 142.8 H* 113.4 H* Ur Phencyclidine Scrn Ur Amphetamines Screen U Benzodiazepines Scrn Urine Cocaine Screen U Marijuana (THC) Screen Ethyl Alcohol 05/27/24 05/30/24 07/12/24 10:04 09:29 07:54 WBC 5.0 RBC 3.93 L Hgb 11.9 L Hct 35.5 L MCV 90.3 MCH 30.3 MCHC 33.5 RDW 14.2 Plt Count 161 D MPV 10.1 Immature Gran % (Auto) 0.8 H Neut % (Auto) 46.9 Lymph % (Auto) 42.1 H Mcpherson % (Auto) 8.4 Eos % (Auto) 1.2 Baso % (Auto) 0.6 Lymph # (Auto) 2.1 [place]pherson # (Auto) 0.4 Eos # (Auto) 0.1 Baso # (Auto) 0.0 Abs Immat Gran (auto) 0.04 H Absolute Neuts (auto) 2.3 Absolute Nucleated RBC 0.000 Nucleated RBC % (auto) 0.0 Hold Purple Top Sodium 142 Potassium 3.6 Chloride 106 Carbon Dioxide 29 Anion Gap 11 L BUN 22 H Creatinine 0.88 Estim Creat Clear Calc 41.5 Estimated GFR > 60 Random Glucose 118 H Fasting Glucose Calcium 8.6 D Magnesium Total Bilirubin Direct Bilirubin AST ALT Alkaline Phosphatase Ammonia Total Protein Albumin Triglycerides Cholesterol LDL Cholesterol, Calc HDL Cholesterol TSH Hold Yellow Top Urine Color Urine Appearance Urine pH Ur Specific [place] Urine Protein Urine Glucose (UA) Urine Ketones Urine Blood Urine Nitrite Ur Leukocyte Esterase Urine RBC Urine WBC Ur Squamous Epith Cells Urine Bacteria Hyaline Casts Salicylates Urine Opiates Screen Ur Buprenorphine Scrn Ur Oxycodone Screen Urine Methadone Screen Urine Fentanyl Screen Acetaminophen Ur Barbiturates Screen Valproic Acid 116.9 H* 114.7 H* 65.8 Ur Phencyclidine Scrn Ur Amphetamines Screen U Benzodiazepines Scrn Urine Cocaine Screen U Marijuana (THC) Screen Ethyl Alcohol Airway Heart: rrr Lungs: cta Assessment and Plan Assessment Anesthesia Assessment: Anesthesia Plan Discussed Final Anesthetic Review Family History of Problems with Anesthesia: No History of Problems with Anesthesia: No NPO: Yes ASA Class: III Final Preanesthetic Review: No Changes in Pt Med Stat, Meds/Allgs Chart Reviewed, Consent Obtained/Reviewed and Anes Risks/Benef Reviewed Patient Risk: Intermediate Procedure Risk: Low Anesthetic Plan Anesthetic Plan: GA Disposition: Standard PACU
--- NOTE | 2024-07-30 14:53 | PC.NURSE ---
Pt canceled, ate a cookie at 1100 and drank juice after 1200.
[2024-07-30 20:00] VITALS: BP 128/68; PULSE 79; RESP 16; TEMP 35.8; O2SAT 95
[2024-07-30] MEDS: Docusate Sodium 100 MG CAPSULE 200 MG PO (20:36)
[2024-07-30] MEDS: Divalproex Sodium ER 250 MG TAB.ER.24H 750 MG PO (20:37)
[2024-07-30] MEDS: Benztropine Mesylate 0.5 MG TABLET PO (20:37)
[2024-07-30] MEDS: QUEtiapine Fumarate 200 MG TABLET PO (20:37)
[2024-07-31 08:53] VITALS: BP 119/66; PULSE 80; RESP 18; TEMP 36.6; O2SAT 97
[2024-07-31] MEDS: Docusate Sodium 100 MG CAPSULE 200 MG PO ×2 (08:54→20:28)
[2024-07-31] MEDS: Benztropine Mesylate 0.5 MG TABLET PO ×2 (08:55→20:28)
[2024-07-31] MEDS: lisinopriL 2.5 MG TABLET PO (08:55)
[2024-07-31] MEDS: Famotidine 20 MG TABLET PO (08:56)
--- NOTE | 2024-07-31 17:03 | HO.PSYCHPN ---
Subjective Subjective Date of Service: 07/31/24 Reason For Visit: Psychosis Subjective Notes: Conditional Voluntary Interim History: The nursing staff reported the patient had being stable. The social worker school met yesterday with her daughter and myself in a family meeting and she will go back to her daughter's care. We are expecting discharge this Tuesday. On interview the patient denies new symptoms she is scheduled to have ECT this Tuesday since Tuesday was canceled and we will use her long-acting injectable. Mental Status Exam Mental Status Exam Patient Appearance: Appropriate Patient Orientation: Person and Situation Level of Consciousness: Awake and Appropriate Patient Behavior: Guarded and Passive Mood Description: Withdrawn Affect Description: Constricted Patient Cognition Impaired: Yes Ability to Follow Directions: Good Speech Pattern: Clear Hallucinations: None Delusions: Not Present Thought Process: Distracted and Slowed Thinking Thought Content: positive for [place] and positive for Poverty of Content Judgement: Fair Diagnostics Vital Signs (24Hr): Vital Signs - 24 hr 07/30/24 20:00 07/31/24 08:53 Temperature 96.4 F L 98 F Pulse Rate 79 80 Respiratory Rate 16 18 Blood Pressure 128/68 119/66 Pulse Oximetry 95 97 Oxygen Delivery Method Room Air Room Air BMI result Body Mass Index 24.3 Labs 07/12/24 07:54 07/12/24 07:54 Imaging Radiology Impressions: ITS Impressions Head CT 05/16/24 14:30 IMPRESSION: There are no acute bleeds or territorial infarcts. No masses are demonstrated. Brain parenchymal attenuation is unremarkable. Medications Medications Current Medications Acetaminophen (Acetaminophen 325 Mg Tablet) 650 mg PO Q6H PRN PRN Reason: Headache/Pain Mild Scale (1-3) Last Admin: 07/23/24 09:32 Dose: 650 mg Al Hydroxide/Mg Hydroxide (Magnesium Hydrox/Alum Hydrox 30 Ml Oral.Susp) 30 ml PO Q6H PRN PRN Reason: Heartburn/Nausea Aripiprazole (Aripiprazole Er 400 Mg Suser.Syr) 400 mg IM Q30D [facility] Last Admin: 07/04/24 15:17 Dose: 400 mg Benztropine Mesylate (Benztropine Mesylate 0.5 Mg Tablet) 0.5 mg PO BID [facility] Last Admin: 07/31/24 08:55 Dose: 0.5 mg Bisacodyl (Bisacodyl 10 Mg Supp.Rect) 10 mg HI DAILY PRN PRN Reason: Constipation Divalproex Sodium (Divalproex Sodium Er 250 Mg Tab.Er.24h) 750 mg PO BEDTIME [facility] Last Admin: 07/30/24 20:37 Dose: 750 mg Docusate Sodium (Docusate Sodium 100 Mg Capsule) 200 mg PO BID [facility] Last Admin: 07/31/24 08:54 Dose: 200 mg Famotidine (Famotidine 20 Mg Tablet) 20 mg PO DAILY [facility] Last Admin: 07/31/24 08:56 Dose: 20 mg Haloperidol (Haloperidol 5 Mg Tablet) 5 mg PO Q6H PRN PRN Reason: Psychosis Last Admin: 06/25/24 13:27 Dose: 5 mg Haloperidol Lactate (Haloperidol Lactate 5 Mg/Ml Vial) 5 mg IM TID PRN PRN Reason: Refusal antipsychotics Last Admin: 06/27/24 22:06 Dose: 5 mg Lisinopril (Lisinopril 2.5 Mg Tablet) 2.5 mg PO DAILY [facility]; Protocol Last Admin: 07/31/24 08:55 Dose: 2.5 mg Lorazepam (Lorazepam 1 Mg Tablet) 1 mg PO TID PRN PRN Reason: agitation Magnesium Hydroxide (Milk Of Magnesia 30 Ml Oral.Susp) 30 ml PO DAILY PRN PRN Reason: Constipation Last Admin: 07/13/24 21:10 Dose: 30 ml Naloxone HCl (Naloxone Hcl 0.4 Mg/Ml Vial) 0.04 mg IVPUSH Q5M PRN PRN Reason: Excessive sedation or RR < 8 Naloxone HCl (Naloxone Hcl 0.4 Mg/Ml Vial) 0.04 mg IVPUSH Q5M PRN PRN Reason: Excessive sedation or RR < 8 Naloxone HCl (Naloxone Hcl 0.4 Mg/Ml Vial) 0.04 mg IVPUSH Q5M PRN PRN Reason: Excessive sedation or RR < 8 Ondansetron HCl (Ondansetron Odt 4 Mg Tab.Rapdis) 8 mg TRANSLINGU Q8H PRN PRN Reason: Nausea and Vomiting Last Admin: 05/26/24 11:02 Dose: 8 mg Polyethylene Glycol (Polyethylene Glycol 3350 17 Gm Powd.Pack) 17 gm PO DAILY PRN PRN Reason: constipation Last Admin: 05/15/24 17:41 Dose: 17 gm Quetiapine Fumarate (Quetiapine Fumarate 200 Mg Tablet) 200 mg PO BEDTIME [facility] Last Admin: 07/30/24 20:37 Dose: 200 mg Sodium Biphosphate/Sodium Phosphate (Sodium Phosphate,[place]-Dibasic 133 Ml Enema) 133 ml HI ONCE PRN PRN Reason: severe constipation Last Admin: 05/13/24 18:19 Dose: 133 ml Trazodone HCl (Trazodone Hcl 50 Mg Tablet) 50 mg PO BEDTIME MRX1 PRN PRN Reason: Insomnia Last Admin: 07/16/24 20:31 Dose: 50 mg Allergies Allergies Allergy/AdvReac Type Severity Reaction Status Date / Time No Known Allergies Allergy Verified 05/04/24 15:04 Assessment & Plan Assessment & Plan (1) Bipolar 1 disorder: Status: Acute Code(s): F31.9 - Bipolar disorder, unspecified Plan The patient is a 74-year-old female, from [facility], , mother of adult children with a past history of bipolar disorder who responded fairly well with ECT in the past. Historically, she had catatonia that responded very well with ECT. Currently she was admitted for increased psychosis, impulsive behavior and manic symptoms. We tried to give her Abilify Maintena 400 mg with limited results so we started ECT. Hospital course: 07/21 continue treatment plan 07/22 Patient reports that she is doing okay; agrees to continue with ECT however says she discussed with the other doctor that will only be 2 times a week. Some hypotension today, no symptoms, lisinopril held Patient remains in good behavioral and impulse control Plan 1. Continue with Abilify Maintena 400 mg IM monthly. 2. Continue with Depakote 750 p.o. daily. 3. Continue with ECT. 4. Start working for disposition. 5. We discussed ECT at least once a week for 4 weeks starting this week since the patient gets very delirious after ECT. Reason for continued inpatient stay Substantial Risk for: inability to function, rapid decompensation and med/psych decompensation Time Spent With Patient Time: Total time managing care of this patient today _20___ minutes.
[2024-07-31 20:00] VITALS: BP 132/66; PULSE 70; RESP 17; TEMP 36.1; O2SAT 100
[2024-07-31] MEDS: Divalproex Sodium ER 250 MG TAB.ER.24H 750 MG PO (20:28)
[2024-07-31] MEDS: QUEtiapine Fumarate 200 MG TABLET PO (20:28)
[2024-08-01 07:55] VITALS: BP 126/74; PULSE 77; RESP 18; TEMP 36.8; O2SAT 98
[2024-08-01] MEDS: lisinopriL 2.5 MG TABLET PO (08:45)
[2024-08-01] MEDS: Benztropine Mesylate 0.5 MG TABLET PO ×2 (08:45→20:04)
[2024-08-01] MEDS: Docusate Sodium 100 MG CAPSULE 200 MG PO ×2 (08:45→20:04)
[2024-08-01] MEDS: Famotidine 20 MG TABLET PO (08:45)
--- NOTE | 2024-08-01 16:31 | HO.PSYCHPN ---
Subjective Subjective Date of Service: 08/01/24 Reason For Visit: Psychosis Subjective Notes: Conditional Voluntary Interim History: The nursing staff reported no changes in her mental status cooperative pleasant fully compliant with treatment. On interview the patient denies new symptoms. We are going to have ECT this Tuesday since Tuesday was canceled. She is going to be discharged Tuesday after ECT and Abilify Maintena shot. Mental Status Exam Mental Status Exam Patient Appearance: Appropriate Patient Orientation: Person and Situation Level of Consciousness: Awake and Appropriate Patient Behavior: Guarded and Passive Mood Description: Withdrawn Affect Description: Constricted Patient Cognition Impaired: Yes Ability to Follow Directions: Good Speech Pattern: Clear Hallucinations: None Delusions: Not Present Thought Process: Distracted and Slowed Thinking Thought Content: positive for [place] and positive for Poverty of Content Judgement: Fair Diagnostics Vital Signs (24Hr): Vital Signs - 24 hr 07/31/24 20:00 08/01/24 07:55 Temperature 96.9 F 98.2 F Pulse Rate 70 77 Respiratory Rate 17 18 Blood Pressure 132/66 126/74 Pulse Oximetry 100 98 Oxygen Delivery Method Room Air Room Air BMI result Body Mass Index 24.3 Labs 07/12/24 07:54 07/12/24 07:54 Imaging Radiology Impressions: ITS Impressions Head CT 05/16/24 14:30 IMPRESSION: There are no acute bleeds or territorial infarcts. No masses are demonstrated. Brain parenchymal attenuation is unremarkable. Medications Medications Current Medications Acetaminophen (Acetaminophen 325 Mg Tablet) 650 mg PO Q6H PRN PRN Reason: Headache/Pain Mild Scale (1-3) Last Admin: 07/23/24 09:32 Dose: 650 mg Al Hydroxide/Mg Hydroxide (Magnesium Hydrox/Alum Hydrox 30 Ml Oral.Susp) 30 ml PO Q6H PRN PRN Reason: Heartburn/Nausea Aripiprazole (Aripiprazole Er 400 Mg Suser.Syr) 400 mg IM Q30D [facility] Last Admin: 07/04/24 15:17 Dose: 400 mg Benztropine Mesylate (Benztropine Mesylate 0.5 Mg Tablet) 0.5 mg PO BID [facility] Last Admin: 08/01/24 08:45 Dose: 0.5 mg Bisacodyl (Bisacodyl 10 Mg Supp.Rect) 10 mg [place] DAILY PRN PRN Reason: Constipation Divalproex Sodium (Divalproex Sodium Er 250 Mg Tab.Er.24h) 750 mg PO BEDTIME [facility] Last Admin: 07/31/24 20:28 Dose: 750 mg Docusate Sodium (Docusate Sodium 100 Mg Capsule) 200 mg PO BID [facility] Last Admin: 08/01/24 08:45 Dose: 200 mg Famotidine (Famotidine 20 Mg Tablet) 20 mg PO DAILY [facility] Last Admin: 08/01/24 08:45 Dose: 20 mg Haloperidol (Haloperidol 5 Mg Tablet) 5 mg PO Q6H PRN PRN Reason: Psychosis Last Admin: 06/25/24 13:27 Dose: 5 mg Haloperidol Lactate (Haloperidol Lactate 5 Mg/Ml Vial) 5 mg IM TID PRN PRN Reason: Refusal antipsychotics Last Admin: 06/27/24 22:06 Dose: 5 mg Lisinopril (Lisinopril 2.5 Mg Tablet) 2.5 mg PO DAILY [facility]; Protocol Last Admin: 08/01/24 08:45 Dose: 2.5 mg Lorazepam (Lorazepam 1 Mg Tablet) 1 mg PO TID PRN PRN Reason: agitation Magnesium Hydroxide (Milk Of Magnesia 30 Ml Oral.Susp) 30 ml PO DAILY PRN PRN Reason: Constipation Last Admin: 07/13/24 21:10 Dose: 30 ml Naloxone HCl (Naloxone Hcl 0.4 Mg/Ml Vial) 0.04 mg IVPUSH Q5M PRN PRN Reason: Excessive sedation or RR < 8 Naloxone HCl (Naloxone Hcl 0.4 Mg/Ml Vial) 0.04 mg IVPUSH Q5M PRN PRN Reason: Excessive sedation or RR < 8 Naloxone HCl (Naloxone Hcl 0.4 Mg/Ml Vial) 0.04 mg IVPUSH Q5M PRN PRN Reason: Excessive sedation or RR < 8 Ondansetron HCl (Ondansetron Odt 4 Mg Tab.Rapdis) 8 mg TRANSLINGU Q8H PRN PRN Reason: Nausea and Vomiting Last Admin: 05/26/24 11:02 Dose: 8 mg Polyethylene Glycol (Polyethylene Glycol 3350 17 Gm Powd.Pack) 17 gm PO DAILY PRN PRN Reason: constipation Last Admin: 05/15/24 17:41 Dose: 17 gm Quetiapine Fumarate (Quetiapine Fumarate 200 Mg Tablet) 200 mg PO BEDTIME [facility] Last Admin: 07/31/24 20:28 Dose: 200 mg Sodium Biphosphate/Sodium Phosphate (Sodium Phosphate,[place]-Dibasic 133 Ml Enema) 133 ml [place] ONCE PRN PRN Reason: severe constipation Last Admin: 05/13/24 18:19 Dose: 133 ml Trazodone HCl (Trazodone Hcl 50 Mg Tablet) 50 mg PO BEDTIME MRX1 PRN PRN Reason: Insomnia Last Admin: 07/16/24 20:31 Dose: 50 mg Allergies Allergies Allergy/AdvReac Type Severity Reaction Status Date / Time No Known Allergies Allergy Verified 05/04/24 15:04 Assessment & Plan Assessment & Plan (1) Bipolar 1 disorder: Status: Acute Code(s): F31.9 - Bipolar disorder, unspecified Plan The patient is a 74-year-old female, from [facility], , mother of adult children with a past history of bipolar disorder who responded fairly well with ECT in the past. Historically, she had catatonia that responded very well with ECT. Currently she was admitted for increased psychosis, impulsive behavior and manic symptoms. We tried to give her Abilify Maintena 400 mg with limited results so we started ECT. Hospital course: 07/21 continue treatment plan 07/22 Patient reports that she is doing okay; agrees to continue with ECT however says she discussed with the other doctor that will only be 2 times a week. Some hypotension today, no symptoms, lisinopril held Patient remains in good behavioral and impulse control Plan 1. Continue with Abilify Maintena 400 mg IM monthly. 2. Continue with Depakote 750 p.o. daily. 3. Continue with ECT. 4. Start working for disposition. 5. We discussed ECT at least once a week for 4 weeks starting this week since the patient gets very delirious after ECT. Reason for continued inpatient stay Substantial Risk for: inability to function, rapid decompensation and med/psych decompensation Time Spent With Patient Time: Total time managing care of this patient today __20__ minutes.
[2024-08-01 20:00] VITALS: BP 134/63; PULSE 70; RESP 17; TEMP 36.3; O2SAT 95
[2024-08-01] MEDS: Divalproex Sodium ER 250 MG TAB.ER.24H 750 MG PO (20:04)
[2024-08-01] MEDS: QUEtiapine Fumarate 200 MG TABLET PO (20:05)
[2024-08-02 08:05] VITALS: BP 120/61; PULSE 64; RESP 18; TEMP 36.7; O2SAT 98
[2024-08-02] MEDS: Famotidine 20 MG TABLET PO (08:15)
[2024-08-02] MEDS: Benztropine Mesylate 0.5 MG TABLET PO ×2 (08:15→19:41)
[2024-08-02] MEDS: lisinopriL 2.5 MG TABLET PO (08:15)
[2024-08-02] MEDS: Docusate Sodium 100 MG CAPSULE 200 MG PO ×2 (08:15→19:40)
[2024-08-02 10:43] VITALS: BMI 24.0
[2024-08-02] MEDS: ARIPiprazole ER 400 MG SUSER.SYR IM (10:46)
--- NOTE | 2024-08-02 16:37 | HO.PSYCHPN ---
Subjective Subjective Date of Service: 08/02/24 Reason For Visit: Psychosis Subjective Notes: Conditional Voluntary Interim History: The nursing staff reported no changes in mental status she is going to have ECT tomorrow on discharge. On interview the patient denies new symptoms Mental Status Exam Mental Status Exam Patient Appearance: Appropriate Patient Orientation: Person and Situation Level of Consciousness: Awake and Appropriate Patient Behavior: Guarded and Passive Mood Description: Withdrawn Affect Description: Constricted Patient Cognition Impaired: Yes Ability to Follow Directions: Good Speech Pattern: Clear Hallucinations: None Delusions: Not Present Thought Process: Distracted and Slowed Thinking Thought Content: positive for [place] and positive for Poverty of Content Judgement: Fair Diagnostics Vital Signs (24Hr): Vital Signs - 24 hr 08/01/24 20:00 08/02/24 08:05 Temperature 97.4 F 98.0 F Pulse Rate 70 64 Respiratory Rate 17 18 Blood Pressure 134/63 120/61 Pulse Oximetry 95 98 Oxygen Delivery Method Room Air Room Air BMI result Body Mass Index 24.0 Labs 07/12/24 07:54 07/12/24 07:54 Imaging Radiology Impressions: ITS Impressions Head CT 05/16/24 14:30 IMPRESSION: There are no acute bleeds or territorial infarcts. No masses are demonstrated. Brain parenchymal attenuation is unremarkable. Medications Medications Current Medications Acetaminophen (Acetaminophen 325 Mg Tablet) 650 mg PO Q6H PRN PRN Reason: Headache/Pain Mild Scale (1-3) Last Admin: 07/23/24 09:32 Dose: 650 mg Al Hydroxide/Mg Hydroxide (Magnesium Hydrox/Alum Hydrox 30 Ml Oral.Susp) 30 ml PO Q6H PRN PRN Reason: Heartburn/Nausea Benztropine Mesylate (Benztropine Mesylate 0.5 Mg Tablet) 0.5 mg PO BID [facility] Last Admin: 08/02/24 08:15 Dose: 0.5 mg Bisacodyl (Bisacodyl 10 Mg Supp.Rect) 10 mg [place] DAILY PRN PRN Reason: Constipation Divalproex Sodium (Divalproex Sodium Er 250 Mg Tab.Er.24h) 750 mg PO BEDTIME [facility] Last Admin: 08/01/24 20:04 Dose: 750 mg Docusate Sodium (Docusate Sodium 100 Mg Capsule) 200 mg PO BID [facility] Last Admin: 08/02/24 08:15 Dose: 200 mg Famotidine (Famotidine 20 Mg Tablet) 20 mg PO DAILY [facility] Last Admin: 08/02/24 08:15 Dose: 20 mg Haloperidol (Haloperidol 5 Mg Tablet) 5 mg PO Q6H PRN PRN Reason: Psychosis Last Admin: 06/25/24 13:27 Dose: 5 mg Haloperidol Lactate (Haloperidol Lactate 5 Mg/Ml Vial) 5 mg IM TID PRN PRN Reason: Refusal antipsychotics Last Admin: 06/27/24 22:06 Dose: 5 mg Lisinopril (Lisinopril 2.5 Mg Tablet) 2.5 mg PO DAILY [facility]; Protocol Last Admin: 08/02/24 08:15 Dose: 2.5 mg Lorazepam (Lorazepam 1 Mg Tablet) 1 mg PO TID PRN PRN Reason: agitation Magnesium Hydroxide (Milk Of Magnesia 30 Ml Oral.Susp) 30 ml PO DAILY PRN PRN Reason: Constipation Last Admin: 07/13/24 21:10 Dose: 30 ml Naloxone HCl (Naloxone Hcl 0.4 Mg/Ml Vial) 0.04 mg IVPUSH Q5M PRN PRN Reason: Excessive sedation or RR < 8 Naloxone HCl (Naloxone Hcl 0.4 Mg/Ml Vial) 0.04 mg IVPUSH Q5M PRN PRN Reason: Excessive sedation or RR < 8 Naloxone HCl (Naloxone Hcl 0.4 Mg/Ml Vial) 0.04 mg IVPUSH Q5M PRN PRN Reason: Excessive sedation or RR < 8 Ondansetron HCl (Ondansetron Odt 4 Mg Tab.Rapdis) 8 mg TRANSLINGU Q8H PRN PRN Reason: Nausea and Vomiting Last Admin: 05/26/24 11:02 Dose: 8 mg Polyethylene Glycol (Polyethylene Glycol 3350 17 Gm Powd.Pack) 17 gm PO DAILY PRN PRN Reason: constipation Last Admin: 05/15/24 17:41 Dose: 17 gm Quetiapine Fumarate (Quetiapine Fumarate 200 Mg Tablet) 200 mg PO BEDTIME [facility] Last Admin: 08/01/24 20:05 Dose: 200 mg Sodium Biphosphate/Sodium Phosphate (Sodium Phosphate,[place]-Dibasic 133 Ml Enema) 133 ml [place] ONCE PRN PRN Reason: severe constipation Last Admin: 05/13/24 18:19 Dose: 133 ml Trazodone HCl (Trazodone Hcl 50 Mg Tablet) 50 mg PO BEDTIME MRX1 PRN PRN Reason: Insomnia Last Admin: 07/16/24 20:31 Dose: 50 mg Allergies Allergies Allergy/AdvReac Type Severity Reaction Status Date / Time No Known Allergies Allergy Verified 05/04/24 15:04 Assessment & Plan Assessment & Plan (1) Bipolar 1 disorder: Status: Acute Code(s): F31.9 - Bipolar disorder, unspecified Plan The patient is a 74-year-old female, from [facility], , mother of adult children with a past history of bipolar disorder who responded fairly well with ECT in the past. Historically, she had catatonia that responded very well with ECT. Currently she was admitted for increased psychosis, impulsive behavior and manic symptoms. We tried to give her Abilify Maintena 400 mg with limited results so we started ECT. Hospital course: 07/21 continue treatment plan 07/22 Patient reports that she is doing okay; agrees to continue with ECT however says she discussed with the other doctor that will only be 2 times a week. Some hypotension today, no symptoms, lisinopril held Patient remains in good behavioral and impulse control Plan 1. Continue with Abilify Maintena 400 mg IM monthly. 2. Continue with Depakote 750 p.o. daily. 3. Continue with ECT. 4. Start working for disposition. 5. We discussed ECT at least once a week for 4 weeks starting this week since the patient gets very delirious after ECT. Reason for continued inpatient stay Substantial Risk for: inability to function, rapid decompensation and med/psych decompensation Time Spent With Patient Time: Total time managing care of this patient today __20__ minutes.
[2024-08-02 19:39] VITALS: BP 107/57; PULSE 81; RESP 15; TEMP 36.3; O2SAT 97
[2024-08-02] MEDS: Divalproex Sodium ER 250 MG TAB.ER.24H 750 MG PO (19:41)
[2024-08-02] MEDS: QUEtiapine Fumarate 200 MG TABLET PO (19:41)
[2024-08-03] VITALS (8 sets, daily range): BP systolic 116–142; BP diastolic 62–78; PULSE 69–86; RESP 12–16; TEMP 36.2–36.8; O2SAT 94–98
--- NOTE | 2024-08-03 06:48 | P.CONAN_ITS ---
[facility] Active Problems Active Problems: All Active Problems Dementia (Acute) Bipolar 1 disorder (Acute) Past Medical History Functional capacity: independent ambulation Family History Family history of problems with anesthesia: No Surgical History History of Problems with Anesthesia: No Social History Social History Household Members: Children Housing: House Patient Tobacco Use Status: Never used Tobacco Sexual orientation: Straight/Heterosexual Meds Allergies Allergy/AdvReac Type Severity Reaction Status Date / Time No Known Allergies Allergy Verified 05/04/24 15:04 Active Medications: Current Medications Acetaminophen (Acetaminophen 325 Mg Tablet) 650 mg PO Q6H PRN PRN Reason: Headache/Pain Mild Scale (1-3) Last Admin: 07/23/24 09:32 Dose: 650 mg Al Hydroxide/Mg Hydroxide (Magnesium Hydrox/Alum Hydrox 30 Ml Oral.Susp) 30 ml PO Q6H PRN PRN Reason: Heartburn/Nausea Benztropine Mesylate (Benztropine Mesylate 0.5 Mg Tablet) 0.5 mg PO BID [facility] Last Admin: 08/02/24 19:41 Dose: 0.5 mg Bisacodyl (Bisacodyl 10 Mg Supp.Rect) 10 mg [place] DAILY PRN PRN Reason: Constipation Divalproex Sodium (Divalproex Sodium Er 250 Mg Tab.Er.24h) 750 mg PO BEDTIME [facility] Last Admin: 08/02/24 19:41 Dose: 750 mg Docusate Sodium (Docusate Sodium 100 Mg Capsule) 200 mg PO BID [facility] Last Admin: 08/02/24 19:40 Dose: 200 mg Famotidine (Famotidine 20 Mg Tablet) 20 mg PO DAILY [facility] Last Admin: 08/02/24 08:15 Dose: 20 mg Haloperidol (Haloperidol 5 Mg Tablet) 5 mg PO Q6H PRN PRN Reason: Psychosis Last Admin: 06/25/24 13:27 Dose: 5 mg Haloperidol Lactate (Haloperidol Lactate 5 Mg/Ml Vial) 5 mg IM TID PRN PRN Reason: Refusal antipsychotics Last Admin: 06/27/24 22:06 Dose: 5 mg Lactated Ringer's (Lr) 1,000 mls @ 50 mls/hr IVCONT .Q20H [facility] Lisinopril (Lisinopril 2.5 Mg Tablet) 2.5 mg PO DAILY [facility]; Protocol Last Admin: 08/02/24 08:15 Dose: 2.5 mg Lorazepam (Lorazepam 1 Mg Tablet) 1 mg PO TID PRN PRN Reason: agitation Magnesium Hydroxide (Milk Of Magnesia 30 Ml Oral.Susp) 30 ml PO DAILY PRN PRN Reason: Constipation Last Admin: 07/13/24 21:10 Dose: 30 ml Naloxone HCl (Naloxone Hcl 0.4 Mg/Ml Vial) 0.04 mg IVPUSH Q5M PRN PRN Reason: Excessive sedation or RR < 8 Naloxone HCl (Naloxone Hcl 0.4 Mg/Ml Vial) 0.04 mg IVPUSH Q5M PRN PRN Reason: Excessive sedation or RR < 8 Naloxone HCl (Naloxone Hcl 0.4 Mg/Ml Vial) 0.04 mg IVPUSH Q5M PRN PRN Reason: Excessive sedation or RR < 8 Naloxone HCl (Naloxone Hcl 0.4 Mg/Ml Vial) 0.04 mg IVPUSH Q5M PRN PRN Reason: Excessive sedation or RR < 8 Ondansetron HCl (Ondansetron Odt 4 Mg Tab.Rapdis) 8 mg TRANSLINGU Q8H PRN PRN Reason: Nausea and Vomiting Last Admin: 05/26/24 11:02 Dose: 8 mg Polyethylene Glycol (Polyethylene Glycol 3350 17 Gm Powd.Pack) 17 gm PO DAILY PRN PRN Reason: constipation Last Admin: 05/15/24 17:41 Dose: 17 gm Quetiapine Fumarate (Quetiapine Fumarate 200 Mg Tablet) 200 mg PO BEDTIME [facility] Last Admin: 08/02/24 19:41 Dose: 200 mg Sodium Biphosphate/Sodium Phosphate (Sodium Phosphate,[place]-Dibasic 133 Ml Enema) 133 ml [place] ONCE PRN PRN Reason: severe constipation Last Admin: 05/13/24 18:19 Dose: 133 ml Trazodone HCl (Trazodone Hcl 50 Mg Tablet) 50 mg PO BEDTIME MRX1 PRN PRN Reason: Insomnia Last Admin: 07/16/24 20:31 Dose: 50 mg Home Medications ?Medication ?Instructions ?Recorded ?Confirmed ?Last Taken ?Type benztropine 0.5 mg tablet 0.5 mg PO BEDTIME 05/04/24 05/04/24 Unknown History divalproex 250 mg tablet,extended 250 mg PO BEDTIME 05/04/24 05/04/24 Unknown History release 24 hr lamotrigine 100 mg tablet 100 mg PO BEDTIME 05/04/24 05/04/24 Unknown History lisinopril 5 mg tablet 2.5 mg PO DAILY 05/04/24 05/04/24 Unknown History quetiapine 100 mg tablet 100 mg PO DAILY 05/04/24 05/04/24 Unknown History quetiapine 300 mg tablet 300 mg PO BEDTIME 05/04/24 05/04/24 Unknown History quetiapine 50 mg tablet 50 mg PO BID PRN Agitation 05/04/24 05/04/24 Unknown History Exam Height,Weight and Vital Signs: Height 5 ft Weight 55.792 kg Last Vital Signs Temp 97.3 F 08/03/24 06:37 Pulse 76 08/03/24 06:37 Resp 12 08/03/24 06:37 BP 141/62 H 08/03/24 06:37 Pulse Ox 96 08/03/24 06:37 O2 Del Method Room Air 08/03/24 06:37 O2 Flow Rate 2 07/23/24 07:42 Pertinent Lab Results Pertinent Lab Results: Laboratory Tests 05/04/24 05/05/24 05/05/24 15:03 12:44 13:08 WBC 4.9 RBC 4.49 Hgb 13.4 Hct 40.3 MCV 89.8 MCH 29.8 MCHC 33.3 RDW 13.4 Plt Count 215 MPV 9.1 L Immature Gran % (Auto) 0.2 Neut % (Auto) 51.7 Lymph % (Auto) 32.9 [place] % (Auto) 11.1 H Eos % (Auto) 3.5 Baso % (Auto) 0.6 Lymph # (Auto) 1.6 [place] # (Auto) 0.5 Eos # (Auto) 0.2 Baso # (Auto) 0.0 Abs Immat Gran (auto) 0.01 Absolute Neuts (auto) 2.5 Absolute Nucleated RBC 0.000 Nucleated RBC % (auto) 0.0 Hold Purple Top Sodium 141 Potassium 4.0 Chloride 102 Carbon Dioxide 31 H Anion Gap 12 BUN 19 H Creatinine 1.08 Estim Creat Clear Calc 37.5 Estimated GFR 50 Random Glucose 104 Fasting Glucose Calcium 9.4 Magnesium 2.3 Total Bilirubin 0.6 Direct Bilirubin AST 18 ALT 13 Alkaline Phosphatase 122 H Ammonia Total Protein 7.5 Albumin 4.2 Triglycerides Cholesterol LDL Cholesterol, Calc HDL Cholesterol TSH 1.25 Hold Yellow Top See Note Urine Color Urine Appearance Urine pH Ur Specific [place] Urine Protein Urine Glucose (UA) Urine Ketones Urine Blood Urine Nitrite Ur Leukocyte Esterase Urine RBC Urine WBC Ur Squamous Epith Cells Urine Bacteria Hyaline Casts Salicylates < 5.0 L Urine Opiates Screen Ur Buprenorphine Scrn Ur Oxycodone Screen Urine Methadone Screen Urine Fentanyl Screen Acetaminophen < 3 Ur Barbiturates Screen Valproic Acid < 12.5 L Ur Phencyclidine Scrn Ur Amphetamines Screen U Benzodiazepines Scrn Urine Cocaine Screen U Marijuana (THC) Screen Ethyl Alcohol < 10 05/05/24 05/09/24 05/16/24 13:16 08:10 20:12 WBC RBC Hgb Hct MCV MCH MCHC RDW Plt Count MPV Immature Gran % (Auto) Neut % (Auto) Lymph % (Auto) [place] % (Auto) Eos % (Auto) Baso % (Auto) Lymph # (Auto) [place] # (Auto) Eos # (Auto) Baso # (Auto) Abs Immat Gran (auto) Absolute Neuts (auto) Absolute Nucleated RBC Nucleated RBC % (auto) Hold Purple Top SEE NOTE Sodium 138 143 Potassium 3.8 4.1 Chloride 101 104 Carbon Dioxide 30 H 27 Anion Gap 11 L 16 BUN 27 H 26 H Creatinine 1.24 0.90 Estim Creat Clear Calc 32.6 44.6 Estimated GFR 43 > 60 Random Glucose 130 H Fasting Glucose 112 H Calcium 9.3 9.2 Magnesium Total Bilirubin 0.9 0.6 Direct Bilirubin 0.2 AST 18 15 ALT 12 10 Alkaline Phosphatase 100 96 Ammonia 25 Total Protein 7.3 6.7 Albumin 4.1 3.8 Triglycerides 61 Cholesterol 157 LDL Cholesterol, Calc 100 H HDL Cholesterol 45 TSH Hold Yellow Top Urine Color Yellow Urine Appearance Clear Urine pH 7.0 Ur Specific [place] 1.020 Urine Protein Negative Urine Glucose (UA) Negative Urine Ketones Negative Urine Blood Negative Urine Nitrite Negative Ur Leukocyte Esterase Moderate (2+) H Urine RBC 0-2 Urine WBC 0-5 Ur Squamous Epith Cells 0-2 Urine Bacteria None Seen Hyaline Casts 0-2 Salicylates Urine Opiates Screen Not Detected Ur Buprenorphine Scrn Not Detected Ur Oxycodone Screen Not Detected Urine Methadone Screen Not Detected Urine Fentanyl Screen Not Detected Acetaminophen Ur Barbiturates Screen Not Detected Valproic Acid 50.2 Ur Phencyclidine Scrn Not Detected Ur Amphetamines Screen Not Detected U Benzodiazepines Scrn Not Detected Urine Cocaine Screen Not Detected U Marijuana (THC) Screen Not Detected Ethyl Alcohol 05/21/24 05/22/24 05/24/24 08:09 08:03 18:05 WBC RBC Hgb Hct MCV MCH MCHC RDW Plt Count MPV Immature Gran % (Auto) Neut % (Auto) Lymph % (Auto) [place] % (Auto) Eos % (Auto) Baso % (Auto) Lymph # (Auto) [place] # (Auto) Eos # (Auto) Baso # (Auto) Abs Immat Gran (auto) Absolute Neuts (auto) Absolute Nucleated RBC Nucleated RBC % (auto) Hold Purple Top Sodium 143 Potassium 3.9 Chloride 105 Carbon Dioxide 29 Anion Gap 13 BUN 31 H Creatinine 1.11 Estim Creat Clear Calc 36.0 Estimated GFR 48 Random Glucose Fasting Glucose 81 Calcium 9.5 Magnesium Total Bilirubin 0.5 Direct Bilirubin AST 17 ALT 9 Alkaline Phosphatase 89 Ammonia 20 Total Protein 7.1 Albumin 4.1 Triglycerides Cholesterol LDL Cholesterol, Calc HDL Cholesterol TSH Hold Yellow Top Urine Color Urine Appearance Urine pH Ur Specific [place] Urine Protein Urine Glucose (UA) Urine Ketones Urine Blood Urine Nitrite Ur Leukocyte Esterase Urine RBC Urine WBC Ur Squamous Epith Cells Urine Bacteria Hyaline Casts Salicylates Urine Opiates Screen Ur Buprenorphine Scrn Ur Oxycodone Screen Urine Methadone Screen Urine Fentanyl Screen Acetaminophen Ur Barbiturates Screen Valproic Acid 142.5 H* 142.8 H* 113.4 H* Ur Phencyclidine Scrn Ur Amphetamines Screen U Benzodiazepines Scrn Urine Cocaine Screen U Marijuana (THC) Screen Ethyl Alcohol 05/27/24 05/30/24 07/12/24 10:04 09:29 07:54 WBC 5.0 RBC 3.93 L Hgb 11.9 L Hct 35.5 L MCV 90.3 MCH 30.3 MCHC 33.5 RDW 14.2 Plt Count 161 D MPV 10.1 Immature Gran % (Auto) 0.8 H Neut % (Auto) 46.9 Lymph % (Auto) 42.1 H [place] % (Auto) 8.4 Eos % (Auto) 1.2 Baso % (Auto) 0.6 Lymph # (Auto) 2.1 [place] # (Auto) 0.4 Eos # (Auto) 0.1 Baso # (Auto) 0.0 Abs Immat Gran (auto) 0.04 H Absolute Neuts (auto) 2.3 Absolute Nucleated RBC 0.000 Nucleated RBC % (auto) 0.0 Hold Purple Top Sodium 142 Potassium 3.6 Chloride 106 Carbon Dioxide 29 Anion Gap 11 L BUN 22 H Creatinine 0.88 Estim Creat Clear Calc 41.5 Estimated GFR > 60 Random Glucose 118 H Fasting Glucose Calcium 8.6 D Magnesium Total Bilirubin Direct Bilirubin AST ALT Alkaline Phosphatase Ammonia Total Protein Albumin Triglycerides Cholesterol LDL Cholesterol, Calc HDL Cholesterol TSH Hold Yellow Top Urine Color Urine Appearance Urine pH Ur Specific [place] Urine Protein Urine Glucose (UA) Urine Ketones Urine Blood Urine Nitrite Ur Leukocyte Esterase Urine RBC Urine WBC Ur Squamous Epith Cells Urine Bacteria Hyaline Casts Salicylates Urine Opiates Screen Ur Buprenorphine Scrn Ur Oxycodone Screen Urine Methadone Screen Urine Fentanyl Screen Acetaminophen Ur Barbiturates Screen Valproic Acid 116.9 H* 114.7 H* 65.8 Ur Phencyclidine Scrn Ur Amphetamines Screen U Benzodiazepines Scrn Urine Cocaine Screen U Marijuana (THC) Screen Ethyl Alcohol Airway Mallampati Class: II TM Dist: >3cm Neck ROM: Full Heart: rrr Lungs: cta Assessment and Plan Assessment Anesthesia Assessment: Anesthesia Plan Discussed and Chart Reviewed Final Anesthetic Review Family History of Problems with Anesthesia: No History of Problems with Anesthesia: No NPO: Yes ASA Class: III Final Preanesthetic Review: No Changes in Pt Med Stat, Meds/Allgs Chart Reviewed and Consent Obtained/Reviewed Patient Risk: Intermediate Procedure Risk: Intermediate Anesthetic Plan Anesthetic Plan: GA Disposition: Standard PACU
[2024-08-03] MEDS: Lactated Ringers 1,000 ML 50 ML IVCONT (06:57)
--- NOTE | 2024-08-03 07:14 | MHC.SHP ---
Pre-Procedural Eval Section A - 24 Hr Update-Section A only Date of Service: 08/03/24 The patient is an INPATIENT: Yes Changes since office visit: No Cold of Flu in the past 2 weeks, No New Medical Problems, No Changes in Medication and No Patient answered all questions The patient has been examined within 24 hours of the surgical procedure. The History & Physical has been completed within 30 days and I have reviewed it.: Yes Section B - Complete if H&P > 30 days Chief Complaint: Psychosis Details of Present Illness: improved a lot iwht ECT Relevant Family History (Specify if Yes): No Relevant Social History: None Present Medications: see Short Stay Collaborative assessment Medical History: No relevant PMH History of Previous Operations: No relevant previous surgery Allergies: Allergies Allergy/AdvReac Type Severity Reaction Status Date / Time No Known Allergies Allergy Verified 05/04/24 15:04 Review of Systems Sugical H&P ROS: Negative: Constitution, Cardiovascular, Respiratory, Neurological, Psychiatric, Hem-Onc, Allergic/Immunologic, Gastrointestinal, Genitourinary, Musculoskeletal, Integumentary, Endocrine and Eyes/Ears/Nose/Throat Exam Surgical H&P Exam: Normal: HEENT, Normal: Heart, Normal: Lungs, Normal: Extremities, Normal: Abdomen, Normal: Skin and Normal: Neurological Plan Diagnosis/Plan: Unchanged I have reviewed the history and physical and performed a pertinent physical examination on my patient. No changes have occurred unless specified. Time Spent With Patient Time: Total time managing care of this patient today ____ minutes.
--- NOTE | 2024-08-03 07:20 | HO.ECTPROC ---
ECT Procedure Note Diagnosis/Treatment Date of Service: 08/03/24 Diagnosis: Bipolar disorder Previous ECT Date: 07/23/24 Interval Clinical Notes: pt flat dysphoric scheduled for d/c not manic some cognitive slowing Time: Total time managing care of this patient today ____ minutes. ECT Settings Device: THYMATRON DGx Electrode Placement: Right Unilateral Program/Pulse Width: 0.25 Energy Percent: 100 Seizure Duration By EEG (in seconds): 41 Medications Administration General Anesthetic: Etomidate (10) Muscle Relaxant: Succinylcholine (80) Ancillary Medications Miscillaneous Medications: Propofol (30) Airway Management Airway Management: Bag Mask Ventilation Treatment Recommendations No Changes Recommended: No change Notes: could dec etomidate to 10 mg Pt Tolerated Procedure w/o Issue: Yes
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
[2024-08-03] MEDS: Famotidine 20 MG TABLET PO (08:47)
[2024-08-03] MEDS: lisinopriL 2.5 MG TABLET PO (08:47)
[2024-08-03] MEDS: Benztropine Mesylate 0.5 MG TABLET PO (08:47)
[2024-08-03] MEDS: Docusate Sodium 100 MG CAPSULE 200 MG PO (08:47)
== END 2024-08-03 13:20 | disposition home or self-care (01) | DRG 885 ==
LOC: HO.ED 22:07 → HO.PGERI 05-08 13:37
PROVIDERS: Physician Assistant; Psychiatry & Neurology Psychiatry; Social Worker; Admitting Provider Psychiatry & Neurology Psychiatry; Emergency Provider Emergency Medicine; PCP Internal Medicine; Visit Provider Psychiatry & Neurology Psychiatry
PROC: GZB4ZZZ Other Electroconvulsive Therapy (ICD-10-PCS; CPT 90870; principal; 2024-06-27 08:30)
DX: F31.9 Bipolar disorder, unspecified (principal); G25.2 Other specified forms of tremor; F03.90 Unspecified dementia, unspecified severity, without behavioral disturbance, psychotic disturbance, mood disturbance, and anxiety; Z79.899 Other long term (current) drug therapy
CPT/HCPCS: 36415; 70450; 80048; 80053; 80061; 80076; 80143; 80164; 80179; 80307; 81001; 82140; 83735; 84443; 85025; 90870; 93005; 99285; J0330; J0401; J1200; J1596; J1630; J1805; J2060; J2359; J2405; J2704; J7120; S9485

== ENCOUNTER → 2024-05-07 07:50 | Outpatient (BNV) | payer MEDICARE, SELFPAY | PROVIDERS: Emergency Provider Emergency Medicine; PCP Internal Medicine; Visit Provider Internal Medicine Cardiovascular Disease | DX: I45.81 Long QT syndrome (principal) | CPT/HCPCS: 93010 ==

== ENCOUNTER → 2024-05-08 13:27 | Outpatient (BNV) | payer MEDICARE, SELFPAY | PROVIDERS: Admitting Provider Psychiatry & Neurology Psychiatry; Emergency Provider Emergency Medicine; PCP Internal Medicine; Visit Provider Physician Assistant | DX: Z01.818 Encounter for other preprocedural examination (principal); F31.9 Bipolar disorder, unspecified | CPT/HCPCS: 99221; 99499 ==

== ENCOUNTER → 2024-05-08 13:27 | Outpatient (BNV) | payer MEDICARE, SELFPAY | PROVIDERS: Admitting Provider Psychiatry & Neurology Psychiatry; Emergency Provider Emergency Medicine; PCP Internal Medicine; Visit Provider Psychiatry & Neurology Psychiatry | DX: F31.13 Bipolar disorder, current episode manic without psychotic features, severe (principal) | CPT/HCPCS: 90792; 90870; 99231; 99232; 99238; 99499 ==

== ENCOUNTER → 2024-05-08 13:27 | Outpatient (BNV) | payer MEDICARE, SELFPAY | PROVIDERS: Admitting Provider Psychiatry & Neurology Psychiatry; Emergency Provider Emergency Medicine; PCP Internal Medicine; Visit Provider Psychiatry & Neurology Psychiatry | DX: F31.2 Bipolar disorder, current episode manic severe with psychotic features (principal) | CPT/HCPCS: 90870; 99231 ==

== ENCOUNTER 2024-08-06 05:48 | Day surgery (SDC) | payer MEDICARE, SELFPAY ==
[2024-08-06] VITALS (8 sets, daily range): BP systolic 126–152; BP diastolic 63–78; PULSE 71–78; RESP 12–16; TEMP 36.2–36.6; O2SAT 95–98; BMI 26.6
--- NOTE | 2024-08-06 06:47 | HO.ANESPROP2 ---
HPI - Anesthesia Eval Consult details Narrative: For ECT. PMFSH Active Problems Active Problems: All Active Problems Dementia (Acute) Bipolar 1 disorder (Acute) Family History Family history of problems with anesthesia: No Surgical History History of Problems with Anesthesia: No Social History Social History Household Members: Children Housing: House Patient Tobacco Use Status: Never used Tobacco Advance Directives: No Advance Directives Information Provided: Yes Sexual orientation: Straight/Heterosexual Meds Allergies Allergy/AdvReac Type Severity Reaction Status Date / Time No Known Allergies Allergy Verified 05/04/24 15:04 Exam Height,Weight and Vital Signs: Height 5 ft Weight 61.689 kg Last Vital Signs Temp 97.8 F 08/06/24 06:35 Pulse 76 08/06/24 06:35 Resp 16 08/06/24 06:35 BP 126/68 08/06/24 06:35 Pulse Ox 95 08/06/24 06:35 O2 Del Method Room Air 08/06/24 06:35 Airway Mallampati Class: II TM Dist: <=3cm Neck ROM: Full Denture: Upper Heart: ok Lungs: ok Assessment and Plan Assessment Anesthesia Assessment: Anesthesia Plan Discussed and Chart Reviewed Final Anesthetic Review Family History of Problems with Anesthesia: No History of Problems with Anesthesia: No NPO: Yes ASA Class: III Final Preanesthetic Review: No Changes in Pt Med Stat, Meds/Allgs Chart Reviewed, Consent Obtained/Reviewed and Anes Risks/Benef Reviewed Patient Risk: Intermediate Procedure Risk: Intermediate Anesthetic Plan Anesthetic Plan: GA and Agree w/ Assess. and Plan Disposition: Standard PACU
--- NOTE | 2024-08-06 07:02 | P.HPSUR_ITS ---
Pre-Procedural Eval Section A - 24 Hr Update-Section A only Date of Service: 08/06/24 The patient is an INPATIENT: No Changes since office visit: No Cold of Flu in the past 2 weeks, No New Medical Problems, No Changes in Medication and No Patient answered all questions The patient has been examined within 24 hours of the surgical procedure. The History & Physical has been completed within 30 days and I have reviewed it.: Yes Section B - Complete if H&P > 30 days Chief Complaint: depression Details of Present Illness: Discharged inpatient, stable, no changes Relevant Family History (Specify if Yes): Yes Relevant Social History: None Present Medications: see Short Stay Collaborative assessment Medical History: No relevant PMH History of Previous Operations: No relevant previous surgery Allergies: Allergies Allergy/AdvReac Type Severity Reaction Status Date / Time No Known Allergies Allergy Verified 05/04/24 15:04 Review of Systems Sugical H&P ROS: Negative: Constitution, Cardiovascular, Respiratory, Neurological, Psychiatric, Hem-Onc, Allergic/Immunologic, Gastrointestinal, Genitourinary, Musculoskeletal, Integumentary, Endocrine and Eyes/Ears/Nos e/Throat Exam Surgical H&P Exam: Normal: HEENT, Normal: Heart, Normal: Lungs, Normal: Extremities, Normal: Abdomen, Normal: Skin and Normal: Neurological Plan Diagnosis/Plan: Unchanged I have reviewed the history and physical and performed a pertinent physical examination on my patient. No changes have occurred unless specified. Time Spent With Patient Time: Total time managing care of this patient today _20___ minutes.
--- NOTE | 2024-08-06 07:20 | HO.ECTPROC ---
ECT Procedure Note Diagnosis/Treatment Date of Service: 08/06/24 Diagnosis: Bipolar disorder Previous ECT Date: 08/03/24 Treatment: Series Interval Clinical Notes: The patient reported no changes on her mental stauts, stable. No side effects with previuos ECT. D/C last Tuesday to her family. ECT done as usual with Succynil on 80, probably we can go to 60. Woke up well, Propofol 30 given after ECT as usual. Time: Total time managing care of this patient today _30___ minutes. ECT Settings Device: THYMATRON DGx Electrode Placement: Right Unilateral Program/Pulse Width: 0.50 Energy Percent: 100 Seizure Duration By EEG (in seconds): 47 By Motor Observation (in seconds): 0 Medications Administration General Anesthetic: Etomidate (12) Muscle Relaxant: Succinylcholine (80) Ancillary Medications Miscillaneous Medications: Propofol (30 after ECT) Airway Management Airway Management: Bag Mask Ventilation Treatment Recommendations Notes: lOWER sUCCYNIL TO 60 MG? Pt Tolerated Procedure w/o Issue: Yes
== END 2024-08-06 09:22 | disposition home or self-care (01) ==
PROVIDERS: PCP Internal Medicine; Visit Provider Psychiatry & Neurology Psychiatry
PROC: (CPT 90870; principal; 2024-08-06 07:30)
DX: F31.9 Bipolar disorder, unspecified (principal); F03.90 Unspecified dementia, unspecified severity, without behavioral disturbance, psychotic disturbance, mood disturbance, and anxiety; Z79.899 Other long term (current) drug therapy
CPT/HCPCS: 90870; J0330; J2250; J2405; J2704

== ENCOUNTER → 2024-08-06 05:48 | Outpatient (BNV) | payer MEDICARE, SELFPAY | PROVIDERS: PCP Internal Medicine; Visit Provider Psychiatry & Neurology Psychiatry | DX: F31.2 Bipolar disorder, current episode manic severe with psychotic features (principal) | CPT/HCPCS: 90870 ==

== ENCOUNTER 2024-08-15 05:50 | Day surgery (SDC) | payer MEDICARE, SELFPAY ==
[2024-08-15] VITALS (8 sets, daily range): BP systolic 120–180; BP diastolic 63–82; PULSE 70–82; RESP 12–16; TEMP 36.3–36.4; O2SAT 96–98; BMI 24.8
--- NOTE | 2024-08-15 06:43 | HO.ANESPROP2 ---
[facility]END[facility] Active Problems Active Problems: All Active Problems Dementia (Acute) Bipolar 1 disorder (Acute) Family History Family history of problems with anesthesia: No Surgical History History of Problems with Anesthesia: No Social History Social History Household Members: Children Housing: House Patient Tobacco Use Status: Never used Tobacco Advance Directives: No Advance Directives Information Provided: Yes Sexual orientation: Straight/Heterosexual Meds Allergies Allergy/AdvReac Type Severity Reaction Status Date / Time No Known Allergies Allergy Verified 05/04/24 15:04 Exam Height,Weight and Vital Signs: Height 5 ft 3 in Weight 63.503 kg Last Vital Signs Temp 97.5 F 08/15/24 06:38 Pulse 79 08/15/24 06:38 Resp 16 08/15/24 06:38 BP 140/82 H 08/15/24 06:38 Pulse Ox 96 08/15/24 06:38 O2 Del Method Room Air 08/15/24 06:38 Airway Mallampati Class: II (edentulous) TM Dist: >3cm Neck ROM: Full Heart: rrr Lungs: cta Assessment and Plan Assessment Anesthesia Assessment: Anesthesia Plan Discussed and Chart Reviewed Final Anesthetic Review Family History of Problems with Anesthesia: No History of Problems with Anesthesia: No NPO: Yes ASA Class: III Final Preanesthetic Review: No Changes in Pt Med Stat, Meds/Allgs Chart Reviewed and Consent Obtained/Reviewed Patient Risk: Low Procedure Risk: Intermediate Anesthetic Plan Anesthetic Plan: GA Disposition: Standard PACU
--- NOTE | 2024-08-15 07:04 | MHC.SHP ---
Pre-Procedural Eval Section A - 24 Hr Update-Section A only Date of Service: 08/15/24 The patient is an INPATIENT: No Section B - Complete if H&P > 30 days Chief Complaint: depression Details of Present Illness: recurrent depression no si seems blunted Allergies: Allergies Allergy/AdvReac Type Severity Reaction Status Date / Time No Known Allergies Allergy Verified 05/04/24 15:04 Review of Systems Sugical H&P ROS: Negative: Cardiovascular and Respiratory and Yes, Specify: Psychiatric (low energy somewhat down) Exam Surgical H&P Exam: Normal: Heart (rr no m), Normal: Lungs (clear) and Normal: Neurological (blunted alert) Exam Comment: 140/82 79 Plan Diagnosis/Plan: Unchanged I have reviewed the history and physical and performed a pertinent physical examination on my patient. No changes have occurred unless specified. Time Spent With Patient Time: Total time managing care of this patient today ____ minutes.
--- NOTE | 2024-08-15 07:08 | HO.ECTPROC ---
ECT Procedure Note Diagnosis/Treatment Date of Service: 08/15/24 Diagnosis: Bipolar disorder Previous ECT Date: 08/06/24 Treatment: Series Interval Clinical Notes: The patient has been back at home she states she is doing okay no new medical problems. Gets help from her family. States she has some socialization with friends. Patient not manic but appears quite flat an hedonic. Time: Total time managing care of this patient today ____ minutes. ECT Settings Device: THYMATRON DGx Electrode Placement: Right Unilateral Program/Pulse Width: 0.50 Energy Percent: 100 Seizure Duration By EEG (in seconds): 50 Medications Administration General Anesthetic: Etomidate (12) Muscle Relaxant: Succinylcholine (80) Ancillary Medications Miscillaneous Medications: Propofol (30 after ECT) Airway Management Airway Management: Bag Mask Ventilation Treatment Recommendations Notes: Patient had extended recovery would try and avoid propofol if needed will use lower dose. Discussed case with Dr. Leary treating psychiatrist from inpatient and would consider Carly Thakkar she is on Abilify and Seroquel but seems quite flat Pt Tolerated Procedure w/o Issue: Yes
== END 2024-08-15 08:53 | disposition home or self-care (01) ==
PROVIDERS: PCP Internal Medicine; Visit Provider Psychiatry & Neurology Psychiatry
PROC: (CPT 90870; principal; 2024-08-15 07:30)
DX: F31.9 Bipolar disorder, unspecified (principal); R45.89 Other symptoms and signs involving emotional state; F03.90 Unspecified dementia, unspecified severity, without behavioral disturbance, psychotic disturbance, mood disturbance, and anxiety; Z79.899 Other long term (current) drug therapy
CPT/HCPCS: 90870; J0330; J2405; J2704

== ENCOUNTER → 2024-08-15 05:50 | Outpatient (BNV) | payer MEDICARE, SELFPAY | PROVIDERS: PCP Internal Medicine; Visit Provider Psychiatry & Neurology Psychiatry | DX: F33.3 Major depressive disorder, recurrent, severe with psychotic symptoms (principal) | CPT/HCPCS: 90870 ==

== ENCOUNTER 2024-08-20 05:54 | Day surgery (SDC) | payer MEDICARE, SELFPAY ==
[2024-08-20 06:25] VITALS: BP 139/68; PULSE 80; RESP 16; TEMP 36.5; O2SAT 95; BMI 25.1
--- NOTE | 2024-08-20 06:48 | HO.ANESPROP2 ---
[facility] Active Problems Active Problems: All Active Problems Dementia (Acute) Bipolar 1 disorder (Acute) Family History Family history of problems with anesthesia: No Surgical History History of Problems with Anesthesia: No Social History Social History Household Members: Children Housing: House Patient Tobacco Use Status: Never used Tobacco Advance Directives: No Advance Directives Information Provided: Yes Sexual orientation: Straight/Heterosexual Meds Allergies Allergy/AdvReac Type Severity Reaction Status Date / Time No Known Allergies Allergy Verified 05/04/24 15:04 Active Medications: Current Medications Lactated Ringer's (Lr) 1,000 mls @ 50 mls/hr IVCONT .Q20H SALLY Exam Height,Weight and Vital Signs: Height 5 ft 2 in Weight 62.142 kg Last Vital Signs Temp 97.7 F 08/20/24 06:25 Pulse 80 08/20/24 06:25 Resp 16 08/20/24 06:25 BP 139/68 08/20/24 06:25 Pulse Ox 95 08/20/24 06:25 O2 Del Method Room Air 08/20/24 06:25 Airway Mallampati Class: II TM Dist: >3cm Neck ROM: Full Denture: Upper Heart: rrr Lungs: cta Assessment and Plan Assessment Anesthesia Assessment: Anesthesia Plan Discussed and Chart Reviewed Final Anesthetic Review Family History of Problems with Anesthesia: No History of Problems with Anesthesia: No NPO: Yes ASA Class: III Final Preanesthetic Review: No Changes in Pt Med Stat, Meds/Allgs Chart Reviewed and Consent Obtained/Reviewed Patient Risk: Intermediate Procedure Risk: Intermediate Anesthetic Plan Anesthetic Plan: GA Disposition: Standard PACU
[2024-08-20] MEDS: Lactated Ringers 1,000 ML 50 ML IVCONT (06:55)
--- NOTE | 2024-08-20 07:02 | MHC.SHP ---
Pre-Procedural Eval Section A - 24 Hr Update-Section A only Date of Service: 08/20/24 The patient is an INPATIENT: No Changes since office visit: No Cold of Flu in the past 2 weeks, No New Medical Problems, No Changes in Medication and No Patient answered all questions Section B - Complete if H&P > 30 days Chief Complaint: depression Allergies: Allergies Allergy/AdvReac Type Severity Reaction Status Date / Time No Known Allergies Allergy Verified 05/04/24 15:04 Plan I have reviewed the history and physical and performed a pertinent physical examination on my patient. No changes have occurred unless specified. Time Spent With Patient Time: Total time managing care of this patient today ____ minutes.
--- NOTE | 2024-08-20 07:31 | HO.ECTPROC ---
ECT Procedure Note Diagnosis/Treatment Date of Service: 08/20/24 Diagnosis: Bipolar disorder Previous ECT Date: 08/15/24 Treatment: Series Interval Clinical Notes: The patient reported euthymia, no side effects with the previous ECT. ECT done as usual, no complications, woke up well. Time: Total time managing care of this patient today _30___ minutes. ECT Settings Device: THYMATRON DGx Electrode Placement: Right Unilateral Program/Pulse Width: 0.50 Energy Percent: 100 Seizure Duration By EEG (in seconds): 45 By Motor Observation (in seconds): 38 Medications Administration General Anesthetic: Etomidate (12) Muscle Relaxant: Succinylcholine (80) Ancillary Medications Anti-emetics: Zofran - Pre ECT Miscillaneous Medications: Propofol (30 post ECT) Airway Management Airway Management: Bag Mask Ventilation Treatment Recommendations No Changes Recommended: No change Pt Tolerated Procedure w/o Issue: Yes
[2024-08-20 07:35] VITALS: BP 159/72; PULSE 75; RESP 14; TEMP 36.3; O2SAT 98
[2024-08-20 07:40] VITALS: BP 128/72; PULSE 76; RESP 14; O2SAT 97
[2024-08-20 07:45] VITALS: BP 142/84; PULSE 83; RESP 16; O2SAT 94
[2024-08-20 07:50] VITALS: BP 142/84; PULSE 80; RESP 16; O2SAT 97
[2024-08-20 08:05] VITALS: BP 142/69; PULSE 79; RESP 16; TEMP 36.3; O2SAT 98
== END 2024-08-20 08:38 | disposition home or self-care (01) ==
PROVIDERS: PCP Internal Medicine; Visit Provider Psychiatry & Neurology Psychiatry
PROC: (CPT 90870; principal; 2024-08-20 07:00)
DX: F31.9 Bipolar disorder, unspecified (principal); R45.89 Other symptoms and signs involving emotional state; F03.90 Unspecified dementia, unspecified severity, without behavioral disturbance, psychotic disturbance, mood disturbance, and anxiety; Z79.899 Other long term (current) drug therapy
CPT/HCPCS: 90870; J0330; J2405; J2704

== ENCOUNTER → 2024-08-20 05:54 | Outpatient (BNV) | payer MEDICARE, SELFPAY | PROVIDERS: PCP Internal Medicine; Visit Provider Psychiatry & Neurology Psychiatry | DX: F33.3 Major depressive disorder, recurrent, severe with psychotic symptoms (principal) | CPT/HCPCS: 90870 ==

== ENCOUNTER 2024-08-27 06:01 | Day surgery (SDC) | payer MEDICARE, SELFPAY ==
[2024-08-27] VITALS (7 sets, daily range): BP systolic 118–188; BP diastolic 64–86; PULSE 66–83; RESP 16–18; TEMP 36.3–36.4; O2SAT 97–99; BMI 25.4
[2024-08-27] MEDS: Lactated Ringers 1,000 ML 100 ML IVCONT (06:59)
--- NOTE | 2024-08-27 07:28 | MHC.SHP ---
Pre-Procedural Eval Section A - 24 Hr Update-Section A only Date of Service: 08/27/24 Section B - Complete if H&P > 30 days Chief Complaint: depression Details of Present Illness: bipolar dx recent selena then depression states doing ok at home Relevant Social History: None Present Medications: see Short Stay Collaborative assessment Allergies: Allergies Allergy/AdvReac Type Severity Reaction Status Date / Time No Known Allergies Allergy Verified 05/04/24 15:04 Review of Systems Sugical H&P ROS: Negative: Cardiovascular, Respiratory, Neurological and Psychiatric (states doing ok stable ) Exam Surgical H&P Exam: Normal: Heart and Normal: Lungs Exam Comment: alert clear sensorium 144/71 p 66 Plan Diagnosis/Plan: Unchanged I have reviewed the history and physical and performed a pertinent physical examination on my patient. No changes have occurred unless specified. Time Spent With Patient Time: Total time managing care of this patient today _30___ minutes.
--- NOTE | 2024-08-27 07:30 | HO.ECTPROC ---
ECT Procedure Note Diagnosis/Treatment Date of Service: 08/27/24 Diagnosis: Bipolar disorder and Major Depressive Disorder Previous ECT Date: 08/20/24 Treatment: Series Interval Clinical Notes: The patient reported feeling ok , no side effects with the previous ECT. ECT done as usual, no complications, woke up well. Cont as per dr brush . Pt home states doing ok Time: Total time managing care of this patient today 30____ minutes. ECT Settings Device: THYMATRON DGx Electrode Placement: Right Unilateral Program/Pulse Width: 0.50 Energy Percent: 100 Seizure Duration By EEG (in seconds): 55 By Motor Observation (in seconds): 38 Medications Administration General Anesthetic: Etomidate (12) Muscle Relaxant: Succinylcholine (80) Ancillary Medications Anti-emetics: Zofran - Pre ECT Miscillaneous Medications: Propofol (30 post ECT) Airway Management Airway Management: Bag Mask Ventilation Treatment Recommendations No Changes Recommended: No change Notes: continue per dr brush Pt Tolerated Procedure w/o Issue: Yes
--- NOTE | 2024-08-27 07:32 | P.CONAN_ITS ---
[facility] Active Problems Active Problems: All Active Problems Dementia (Acute) Bipolar 1 disorder (Acute) Family History Family history of problems with anesthesia: No Surgical History History of Problems with Anesthesia: No Social History Social History Household Members: Children Housing: House Patient Tobacco Use Status: Never used Tobacco Advance Directives: No Advance Directives Information Provided: Yes Sexual orientation: Straight/Heterosexual Meds Allergies Allergy/AdvReac Type Severity Reaction Status Date / Time No Known Allergies Allergy Verified 05/04/24 15:04 Active Medications: Current Medications Lactated Ringer's (Lr) 1,000 mls @ 100 mls/hr IVCONT .Q10H SALLY Last Admin: 08/27/24 06:59 Dose: 100 mls/hr Exam Height,Weight and Vital Signs: Height 5 ft Weight 58.967 kg Last Vital Signs Temp 97.5 F 08/27/24 06:42 Pulse 66 08/27/24 06:42 Resp 16 08/27/24 06:42 BP 144/71 H 08/27/24 06:42 Pulse Ox 97 08/27/24 06:42 O2 Del Method Room Air 08/27/24 06:42 Airway Mallampati Class: II TM Dist: >3cm Neck ROM: Full Loose/Missing/Broken Teeth: No Heart: RRR Lungs: CTA Assessment and Plan Assessment Anesthesia Assessment: Anesthesia Plan Discussed and Chart Reviewed Final Anesthetic Review Family History of Problems with Anesthesia: No History of Problems with Anesthesia: No NPO: Yes ASA Class: II Final Preanesthetic Review: Meds/Allgs Chart Reviewed, Consent Obtained/Reviewed and Anes Risks/Benef Reviewed Patient Risk: Low Procedure Risk: Intermediate Anesthetic Plan Anesthetic Plan: GA Disposition: Standard PACU
== END 2024-08-27 09:09 | disposition home or self-care (01) ==
PROVIDERS: PCP Internal Medicine; Visit Provider Psychiatry & Neurology Psychiatry
PROC: (CPT 90870; principal; 2024-08-27 08:30)
DX: F31.9 Bipolar disorder, unspecified (principal); F03.90 Unspecified dementia, unspecified severity, without behavioral disturbance, psychotic disturbance, mood disturbance, and anxiety; Z79.899 Other long term (current) drug therapy
CPT/HCPCS: 90870; J0330; J2405; J2704

== ENCOUNTER → 2024-08-27 06:01 | Outpatient (BNV) | payer MEDICARE, SELFPAY | PROVIDERS: PCP Internal Medicine; Visit Provider Psychiatry & Neurology Psychiatry | DX: F33.2 Major depressive disorder, recurrent severe without psychotic features (principal) | CPT/HCPCS: 90870 ==

== ENCOUNTER 2025-05-15 16:05 | Outpatient (AMB) | payer MEDICARE, SELFPAY ==
--- NOTE | 2025-05-15 16:18 | MHC.OFFVIS ---
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 [facility] Medical History (Updated 05/15/25 @ 16:20 by Ngoc Robertson MD) Frontotemporal lobar degeneration Social History Household Members: Children Housing: House Patient Tobacco Use Status: Never used Tobacco Sexual orientation: Straight/Heterosexual Review of Systems Const Details: Constitutional:?No fever, chills, fatigue, weight loss, or night sweats. HEENT:?No headache, vision changes, hearing loss, nasal congestion, sore throat. Neurological:?No dizziness, syncope, seizures, numbness, tingling, weakness, tremors, memory loss. Psychiatric:?No anxiety, depression, mood swings, sleep disturbance, or hallucinations. Endocrine:?No heat/cold intolerance, polydipsia, polyuria, or hair/skin changes. Hematologic/Lymphatic:?No easy bruising, bleeding, or lymphadenopathy. Integumentary (Skin):?No rash, lesions, itching, or color changes. ? Physical Exam Neuro Other: Mental Status: Alert and oriented to person, place, and time. Normal attention. Normal spontaneous speech, fluency, and comprehension. Cranial Nerves: CN II: Visual pelletier full to confrontation, visual acuity intact. CN III, IV, : Pupils equal, round, reactive to light and accommodation. Extraocular movements are normal. CN V: Facial sensation is normal. CN VII: Facial movements symmetrical. CN VIII: Hearing intact to bedside conversation is normal. CN IX, X: Palate elevates symmetrically. CN XI: Shoulder shrug and head turn symmetrical. CN XII: Tongue midline without atrophy or fasciculations. Extrapyramidal: Full facial expressions and blinking. No rigidity. Movements are appropriate with no tremor or abnormality. Speech: Normal; no dysarthria or tremor. Assessment & Plan Assessment & Plan (1) Frontotemporal brain disease: Code(s): G31.09 - Other frontotemporal neurocognitive disorder; F02.80 - Dementia in other diseases classified elsewhere, unspecified severity, without behavioral disturbance, psychotic disturbance, mood disturbance, and anxiety Category: Medical Plan At this time, she is managed by her psychiatrist and symptoms are reasonably controlled including insomnia. She is advised to continue to f/u with pyschiatrist and have vit B12 level Orders: Orders Vitamin B12 and Folate Today F02.80 - Dementia in other diseases classified elsewhere, unspecified severity, without behavioral disturbance, psychotic disturbance, mood disturbance, and anxiety, F03.90 - Unspecified dementia, unspecified severity, without behavioral disturbance, psychotic disturbance, mood disturbance, and anxiety, G31.09 - Other frontotemporal neurocognitive disorder Coding Level of Care Code Est Pt Level 3 (86367) Diagnoses Frontotemporal brain disease G31.09; F02.80
== END 2025-05-15 16:36 | disposition home or self-care (01) ==
LOC: HO.HSM 16:05
PROVIDERS: PCP Internal Medicine; Visit Provider Psychiatry & Neurology Neurology
DX: G31.09 Other frontotemporal neurocognitive disorder (principal); F02.80 Dementia in other diseases classified elsewhere, unspecified severity, without behavioral disturbance, psychotic disturbance, mood disturbance, and anxiety
CPT/HCPCS: 99213

== ENCOUNTER 2025-05-15 16:05 | Outpatient (REF) | payer MEDICARE, SELFPAY ==
[2025-05-15 18:13] LABS: Folate 13.2 ng/mL (> or = 4.0); Vitamin B12 913 pg/mL (200-900)
== END 2025-05-15 16:06 | disposition home or self-care (01) ==
LOC: HO.LAB 16:05
PROVIDERS: PCP Internal Medicine; Visit Provider Psychiatry & Neurology Neurology
DX: G31.09 Other frontotemporal neurocognitive disorder (principal); F02.83 Dementia in other diseases classified elsewhere, unspecified severity, with mood disturbance
CPT/HCPCS: 36415; 82607; 82746; 99212